=== PATIENT | female | born 1935 | race American Indian/Alaskan Native ===

== ENCOUNTER 2021-10-15 15:05 | Inpatient (IN) | payer MEDICAID ==
[~2021-10-15 15:05] MED LIST: ETOMIDATE 20 MG/10 ML INJ IV ONE; SUCCINYLCHOLINE CHLORIDE 200 MG/10 ML INJ MDV ONE
[2021-10-15] MEDS ORDERED: SODIUM CHLORIDE 0.9% 1000 ML 1,000 ML ONE (15:15)
[2021-10-15] MEDS ORDERED: SODIUM CHLORIDE 0.9% 1000 ML 1,000 ML IV ONE (15:21)
[2021-10-15] MEDS ORDERED: cefTRIAXone/NS 1 GM/50 ML 1 GM/50 ML BAG IV ONE (15:27)
[2021-10-15] MEDS ORDERED: dexAMETHasone 4 MG/ML VIAL IV ONE (15:28)
--- NOTE | 2021-10-15 15:32 | Emergency Department Report ---
HPI - General Chief Complaint: Dyspnea/Respdistress PUI?: Yes Time Seen by Provider: 10/15/21 15:18 - HPI HPI: 86-year-old female with history of stroke and pacemaker placement brought in by EMS in severe respiratory distress with hypoxia. According to the EMS report, they were called out for dyspnea. When they arrived they found the patient with severely altered mental status and respiratory distress satting in the 70s on r oom air. Her son did not convey any information about the duration or the nature of the patient's symptoms. She was placed on BiPAP in route. She is in severe respiratory distress. Further details of the HPI are highly limited due to the patient's current clinical condition. ED Past Medical Hx - Past Medical History Previous Medical History?: Yes Hx CVA: Yes - Surgical History Hx Pacemaker: Yes ED Review of Systems ROS: Stated complaint: RESPIRATORY DISTRESS Other details as noted in HPI Comment: Unobtainable due to pts medical conditions Physical Exam - Physical Exam Physical Exam: GENERAL: Frail appearing elderly female in severe respiratory distress HEAD: Normocephalic. No obvious signs of trauma. ENT: BiPAP in place. EYES: . Pupils are equal round and reactive to light bilaterally NECK: Supple. Trachea is midline. LUNGS: Severe respiratory distress with accessory muscle use. Equal chest rise bilaterally. There are diffuse rales throughout all lung escalera bilaterally CARDIOVASCULAR: Tachycardic but with regular rhythm. No murmurs or rubs. VASCULAR: Cap refill < 2 seconds ABDOMEN: Abdomen is soft and nondistended. There is no significant tenderness, guarding or rebound. Gastrostomy tube is in place. SKIN: Skin is warm and dry NEURO: Patient is awake but does not respond or follow commands. She does withd raw to pain. Uncooperative with neurologic exam. MUSCULOSKELETAL: No obvious deformities. No significant tenderness. . - Central Line Placement Right IJ Consent Obtained: emergent situation Patient Placed on Monitor/Pulse Ox: Yes MD Prep: mask, gown, gloves Central Line Prep: Chlorhexidine scrub, sterile drapes applied Local Anesthesia Used: Lidocaine 1% Amount of Anesthesia Used (mls): 1 Ultrasound Used for Placement: Yes Central Line Lumen Inserted: triple Reason for Insertion: High Alert Medication Central Line Position: good blood return, all ports aspirated, flus, sutured in place with 2-0 Dressing Applied: Tegaderm, sterile gauze/tape Post Procedure X-Ray: tip of catheter in good p Patient Tolerated Procedure: well, no complications Complications: none - Intubation Sedative: Etomidate Mg Given: 20 Paralytic: Succinylcholine Mg Given: 100 Laryngoscope: fiberoptic video scope Size: 4 ET Tube Size: 7 Tube Secured Depth (cm): 21 Tube Secured Location: lips Tube Placement Confirmation: visualized tube passing t, equal breath sounds bilat, confirmation by capnometr Patient Tolerated Procedure: well Intubation Complications: none ED Medical Decision Making - Lab Data Result diagrams: 10/15/21 16:15 10/15/21 16:15 Lab Results 10/15/21 10/15/21 10/15/21 Range/Units 16:15 16:15 16:15 WBC 17.2 H (4.5-11.0) K/mm3 RBC 3.80 (3.65-5.03) M/mm3 Hgb 9.0 L (10.1-14.3) gm/dl Hct 29.7 L (30.3-42.9) % MCV 78 L (79-97) fl MCH 24 L (28-32) pg MCHC 30 (30-34) % RDW 17.5 H (13.2-15.2) % Plt Count 308 (140-440) K/mm3 Add Manual Diff Complete Total Counted 100 Seg Neutrophils % Cable Reeler Seg Neuts % (Manual) 88.0 H (40.0-70.0) % Band Neutrophils % 7.0 % Lymphocytes % (Manual) 3.0 L (13.4-35.0) % Reactive Lymphs % (Man) 0 % Monocytes % (Manual) 2.0 (0.0-7.3) % Eosinophils % (Manual) 0 (0.0-4.3) % Basophils % (Manual) 0 (0.0-1.8) % Metamyelocytes % 0 % Myelocytes % 0 % Promyelocytes % 0 % Blast Cells % 0 % Nucleated RBC % Not Reportable Seg Neutrophils # Man 15.1 H (1.8-7.7) K/mm3 Band Neutrophils # 1.2 K/mm3 Lymphocytes # (Manual) 0.5 L (1.2-5.4) K/mm3 Abs React Lymphs (Man) 0.0 K/mm3 Monocytes # (Manual) 0.3 (0.0-0.8) K/mm3 Eosinophils # (Manual) 0.0 (0.0-0.4) K/mm3 Basophils # (Manual) 0.0 (0.0-0.1) K/mm3 Metamyelocytes # 0.0 K/mm3 Myelocytes # 0.0 K/mm3 Promyelocytes # 0.0 K/mm3 Blast Cells # 0.0 K/mm3 WBC Morphology Not Reportable Hypersegmented Neuts Not Reportable Hyposegmented Neuts Not Reportable Hypogranular Neuts Not Reportable Smudge Cells Not Reportable Toxic Granulation Not Reportable Toxic Vacuolation Not Reportable Dohle Bodies Not Reportable Pelger-Huet Anomaly Not Reportable Girma Rods Not Reportable Platelet Estimate Consistent w auto Clumped Platelets Not Reportable Plt Clumps, EDTA Not Reportable Large Platelets Not Reportable Giant Platelets Not Reportable Platelet Satelliting Not Reportable Plt Morphology Comment Not Reportable RBC Morphology Not Reportable Dimorphic RBCs Not Reportable Polychromasia Not Reportable Hypochromasia 1+ Poikilocytosis Not Reportable Anisocytosis Not Reportable Microcytosis Not Reportable Macrocytosis Not Reportable Spherocytes Not Reportable Pappenheimer Bodies Not Reportable Sickle Cells Not Reportable Target Cells Not Reportable Tear Drop Cells Not Reportable Ovalocytes Not Reportable Helmet Cells Not Reportable Vaz-Matteson Bodies Not Reportable [place] Rings Not Reportable Lucius Cells Not Reportable Bite Cells Not Reportable Crenated Cell Not Reportable Elliptocytes Not Reportable Acanthocytes (Spur) Not Reportable Rouleaux Not Reportable Hemoglobin C Crystals Not Reportable Schistocytes Not Reportable Malaria parasites Not Reportable Brodie Bodies Not Reportable Hem Pathologist Commnt No PT 14.6 (12.2-14.9) Sec. INR 1.03 (0.87-1.13) APTT 38.0 H (24.2-36.6) Sec. D-Dimer 7433.97 H (0-234) ng/mlDDU ABG pH (7.350-7.450) pH Units ABG pCO2 mm Hg ABG pO2 (80.0-90.0) mm Hg ABG HCO3 (20.0-26.0) mmol/L ABG O2 Saturation (95.0-99.0) % ABG O2 Content (0.0-44) ABG Base Excess (-2.0-3.0) mmol/L ABG Hemoglobin (12.0-16.0) gm/dl ABG Carboxyhemoglobin (0.0-5.0) % ABG Methemoglobin (0.0-1.5) % Oxyhemoglobin (95.0-99.0) % FiO2 % Sodium (137-145) mmol/L Potassium (3.6-5.0) mmol/L Chloride (98-107) mmol/L Carbon Dioxide (22-30) mmol/L Anion Gap mmol/L BUN (7-17) mg/dL Creatinine (0.6-1.2) mg/dL Estimated GFR ml/min BUN/Creatinine Ratio % Glucose (65-100) mg/dL Lactic Acid 5.60 H* (0.7-2.0) mmol/L Calcium (8.4-10.2) mg/dL Magnesium (1.7-2.3) mg/dL Ferritin (10.0-200.0) ng/mL Total Bilirubin (0.1-1.2) mg/dL Direct Bilirubin (0-0.2) mg/dL Indirect Bilirubin mg/dL AST (5-40) units/L ALT (7-56) units/L Alkaline Phosphatase (35-129) units/L Ammonia (25-60) umol/L Lactate Dehydrogenase (91-180) units/L Troponin T (0.00-0.029) ng/mL C-Reactive Protein (0.00-1.30) mg/dL NT-Pro-B Natriuret Pep (0-900) pg/mL Total Protein (6.3-8.2) g/dL Albumin (3.9-5) g/dL Albumin/Globulin Ratio % Triglycerides (2-149) mg/dL Cholesterol (50-199) mg/dL LDL Cholesterol Direct (50-130) mg/dL HDL Cholesterol (40-59) mg/dL Cholesterol/HDL Ratio % Lipase (13-60) units/L Urine Color (Yellow) Urine Turbidity (Clear) Urine pH (5.0-7.0) Ur Specific Tad (1.003-1.030) Urine Protein (Negative) mg/dL Urine Glucose (UA) (Negative) mg/dL Urine Ketones (Negative) mg/dL Urine Blood (Negative) Urine Nitrite (Negative) Urine Bilirubin (Negative) Urine Urobilinogen (<2.0) mg/dL Ur Leukocyte Esterase (Negative) Urine WBC (Auto) (0.0-6.0) /HPF Urine RBC (Auto) (0.0-6.0) /HPF U Epithel Cells (Auto) (0-13.0) /HPF Urine Bacteria (Auto) (Negative) /HPF Calcium Oxalate Crystal Amorphous Crystals Urine Mucus /HPF Urine Yeast (Budding) /HPF Salicylates (2.8-20.0) mg/dL Urine Opiates Screen Urine Methadone Screen Acetaminophen (10.0-30.0) ug/mL Ur Barbiturates Screen Ur Phencyclidine Scrn Ur Amphetamines Screen U Benzodiazepines Scrn Urine Cocaine Screen U Marijuana (THC) Screen Drugs of Abuse Note 10/15/21 10/15/21 10/15/21 Range/Units 16:15 16:15 16:15 WBC (4.5-11.0) K/mm3 RBC (3.65-5.03) M/mm3 Hgb (10.1-14.3) gm/dl Hct (30.3-42.9) % MCV (79-97) fl MCH (28-32) pg MCHC (30-34) % RDW (13.2-15.2) % Plt Count (140-440) K/mm3 Add Manual Diff Total Counted Seg Neutrophils % Seg Neuts % (Manual) (40.0-70.0) % Band Neutrophils % % Lymphocytes % (Manual) (13.4-35.0) % Reactive Lymphs % (Man) % Monocytes % (Manual) (0.0-7.3) % Eosinophils % (Manual) (0.0-4.3) % Basophils % (Manual) (0.0-1.8) % Metamyelocytes % % Myelocytes % % Promyelocytes % % Blast Cells % % Nucleated RBC % Seg Neutrophils # Man (1.8-7.7) K/mm3 Band Neutrophils # K/mm3 Lymphocytes # (Manual) (1.2-5.4) K/mm3 Abs React Lymphs (Man) K/mm3 Monocytes # (Manual) (0.0-0.8) K/mm3 Eosinophils # (Manual) (0.0-0.4) K/mm3 Basophils # (Manual) (0.0-0.1) K/mm3 Metamyelocytes # K/mm3 Myelocytes # K/mm3 Promyelocytes # K/mm3 Blast Cells # K/mm3 WBC Morphology Hypersegmented Neuts Hyposegmented Neuts Hypogranular Neuts Smudge Cells Toxic Granulation Toxic Vacuolation Dohle Bodies Pelger-Huet Anomaly Girma Rods Platelet Estimate Clumped Platelets Plt Clumps, EDTA Large Platelets Giant Platelets Platelet Satelliting Plt Morphology Comment RBC Morphology Dimorphic RBCs Polychromasia Hypochromasia Poikilocytosis Anisocytosis Microcytosis Macrocytosis Spherocytes Pappenheimer Bodies Sickle Cells Target Cells Tear Drop Cells Ovalocytes Helmet Cells Vaz-Matteson Bodies [place] Rings [place] Cells Bite Cells Crenated Cell Elliptocytes Acanthocytes (Spur) Rouleaux Hemoglobin C Crystals Schistocytes Malaria parasites Brodie Bodies Hem Pathologist Commnt PT (12.2-14.9) Sec. INR (0.87-1.13) APTT (24.2-36.6) Sec. D-Dimer (0-234) ng/mlDDU ABG pH (7.350-7.450) pH Units ABG pCO2 mm Hg ABG pO2 (80.0-90.0) mm Hg ABG HCO3 (20.0-26.0) mmol/L ABG O2 Saturation (95.0-99.0) % ABG O2 Content (0.0-44) ABG Base Excess (-2.0-3.0) mmol/L ABG Hemoglobin (12.0-16.0) gm/dl ABG Carboxyhemoglobin (0.0-5.0) % ABG Methemoglobin (0.0-1.5) % Oxyhemoglobin (95.0-99.0) % FiO2 % Sodium 134 L (137-145) mmol/L Potassium 4.6 (3.6-5.0) mmol/L Chloride 89.6 L (98-107) mmol/L Carbon Dioxide 26 (22-30) mmol/L Anion Gap 23 mmol/L BUN 27 H (7-17) mg/dL Creatinine 0.6 (0.6-1.2) mg/dL Estimated GFR > 60 ml/min BUN/Creatinine Ratio 45 % Glucose 234 H (65-100) mg/dL Lactic Acid (0.7-2.0) mmol/L Calcium 8.7 (8.4-10.2) mg/dL Magnesium 1.40 L (1.7-2.3) mg/dL Ferritin (10.0-200.0) ng/mL Total Bilirubin 0.50 (0.1-1.2) mg/dL Direct Bilirubin 0.3 H (0-0.2) mg/dL Indirect Bilirubin 0.2 mg/dL AST 31 (5-40) units/L ALT 18 (7-56) units/L Alkaline Phosphatase 66 (35-129) units/L Ammonia 38.0 (25-60) umol/L Lactate Dehydrogenase (91-180) units/L Troponin T (0.00-0.029) ng/mL C-Reactive Protein (0.00-1.30) mg/dL NT-Pro-B Natriuret Pep 6606 H (0-900) pg/mL Total Protein 6.2 L (6.3-8.2) g/dL Albumin 3.1 L (3.9-5) g/dL Albumin/Globulin Ratio 1.0 % Triglycerides (2-149) mg/dL Cholesterol (50-199) mg/dL LDL Cholesterol Direct (50-130) mg/dL HDL Cholesterol (40-59) mg/dL Cholesterol/HDL Ratio % Lipase 19 (13-60) units/L Urine Color (Yellow) Urine Turbidity (Clear) Urine pH (5.0-7.0) Ur Specific Tad (1.003-1.030) Urine Protein (Negative) mg/dL Urine Glucose (UA) (Negative) mg/dL Urine Ketones (Negative) mg/dL Urine Blood (Negative) Urine Nitrite (Negative) Urine Bilirubin (Negative) Urine Urobilinogen (<2.0) mg/dL Ur Leukocyte Esterase (Negative) Urine WBC (Auto) (0.0-6.0) /HPF Urine RBC (Auto) (0.0-6.0) /HPF U Epithel Cells (Auto) (0-13.0) /HPF Urine Bacteria (Auto) (Negative) /HPF Calcium Oxalate Crystal Amorphous Crystals Urine Mucus /HPF Urine Yeast (Budding) /HPF Salicylates < 0.3 L (2.8-20.0) mg/dL Urine Opiates Screen Urine Methadone Screen Acetaminophen (10.0-30.0) ug/mL Ur Barbiturates Screen Ur Phencyclidine Scrn Ur Amphetamines Screen U Benzodiazepines Scrn Urine Cocaine Screen U Marijuana (THC) Screen Drugs of Abuse Note 10/15/21 10/15/21 10/15/21 Range/Units 16:15 16:15 16:15 WBC (4.5-11.0) K/mm3 RBC (3.65-5.03) M/mm3 Hgb (10.1-14.3) gm/dl Hct (30.3-42.9) % MCV (79-97) fl MCH (28-32) pg MCHC (30-34) % RDW (13.2-15.2) % Plt Count (140-440) K/mm3 Add Manual Diff Total Counted Seg Neutrophils % Seg Neuts % (Manual) (40.0-70.0) % Band Neutrophils % % Lymphocytes % (Manual) (13.4-35.0) % Reactive Lymphs % (Man) % Monocytes % (Manual) (0.0-7.3) % Eosinophils % (Manual) (0.0-4.3) % Basophils % (Manual) (0.0-1.8) % Metamyelocytes % % Myelocytes % % Promyelocytes % % Blast Cells % % Nucleated RBC % Seg Neutrophils # Man (1.8-7.7) K/mm3 Band Neutrophils # K/mm3 Lymphocytes # (Manual) (1.2-5.4) K/mm3 Abs React Lymphs (Man) K/mm3 Monocytes # (Manual) (0.0-0.8) K/mm3 Eosinophils # (Manual) (0.0-0.4) K/mm3 Basophils # (Manual) (0.0-0.1) K/mm3 Metamyelocytes # K/mm3 Myelocytes # K/mm3 Promyelocytes # K/mm3 Blast Cells # K/mm3 WBC Morphology Hypersegmented Neuts Hyposegmented Neuts Hypogranular Neuts Smudge Cells Toxic Granulation Toxic Vacuolation Dohle Bodies Pelger-Huet Anomaly Girma Rods Platelet Estimate Clumped Platelets Plt Clumps, EDTA Large Platelets Giant Platelets Platelet Satelliting Plt Morphology Comment RBC Morphology Dimorphic RBCs Polychromasia Hypochromasia Poikilocytosis Anisocytosis Microcytosis Macrocytosis Spherocytes Pappenheimer Bodies Sickle Cells Target Cells Tear Drop Cells Ovalocytes Helmet Cells Vaz-Matteson Bodies [place] Rings Lucius Cells Bite Cells Crenated Cell Elliptocytes Acanthocytes (Spur) Rouleaux Hemoglobin C Crystals Schistocytes Malaria parasites Brodie Bodies Hem Pathologist Commnt PT (12.2-14.9) Sec. INR (0.87-1.13) APTT (24.2-36.6) Sec. D-Dimer (0-234) ng/mlDDU ABG pH (7.350-7.450) pH Units ABG pCO2 mm Hg ABG pO2 (80.0-90.0) mm Hg ABG HCO3 (20.0-26.0) mmol/L ABG O2 Saturation (95.0-99.0) % ABG O2 Content (0.0-44) ABG Base Excess (-2.0-3.0) mmol/L ABG Hemoglobin (12.0-16.0) gm/dl ABG Carboxyhemoglobin (0.0-5.0) % ABG Methemoglobin (0.0-1.5) % Oxyhemoglobin (95.0-99.0) % FiO2 % Sodium (137-145) mmol/L Potassium (3.6-5.0) mmol/L Chloride (98-107) mmol/L Carbon Dioxide (22-30) mmol/L Anion Gap mmol/L BUN (7-17) mg/dL Creatinine (0.6-1.2) mg/dL Estimated GFR ml/min BUN/Creatinine Ratio % Glucose 221 H (65-100) mg/dL Lactic Acid (0.7-2.0) mmol/L Calcium (8.4-10.2) mg/dL Magnesium (1.7-2.3) mg/dL Ferritin 418.8 H (10.0-200.0) ng/mL Total Bilirubin (0.1-1.2) mg/dL Direct Bilirubin (0-0.2) mg/dL Indirect Bilirubin mg/dL AST (5-40) units/L ALT (7-56) units/L Alkaline Phosphatase (35-129) units/L Ammonia (25-60) umol/L Lactate Dehydrogenase 233 H (91-180) units/L Troponin T (0.00-0.029) ng/mL C-Reactive Protein 25.90 H (0.00-1.30) mg/dL NT-Pro-B Natriuret Pep (0-900) pg/mL Total Protein (6.3-8.2) g/dL Albumin (3.9-5) g/dL Albumin/Globulin Ratio % Triglycerides (2-149) mg/dL Cholesterol (50-199) mg/dL LDL Cholesterol Direct (50-130) mg/dL HDL Cholesterol (40-59) mg/dL Cholesterol/HDL Ratio % Lipase (13-60) units/L Urine Color (Yellow) Urine Turbidity (Clear) Urine pH (5.0-7.0) Ur Specific Tad (1.003-1.030) Urine Protein (Negative) mg/dL Urine Glucose (UA) (Negative) mg/dL Urine Ketones (Negative) mg/dL Urine Blood (Negative) Urine Nitrite (Negative) Urine Bilirubin (Negative) Urine Urobilinogen (<2.0) mg/dL Ur Leukocyte Esterase (Negative) Urine WBC (Auto) (0.0-6.0) /HPF Urine RBC (Auto) (0.0-6.0) /HPF U Epithel Cells (Auto) (0-13.0) /HPF Urine Bacteria (Auto) (Negative) /HPF Calcium Oxalate Crystal Amorphous Crystals Urine Mucus /HPF Urine Yeast (Budding) /HPF Salicylates (2.8-20.0) mg/dL Urine Opiates Screen Urine Methadone Screen Acetaminophen 5.0 L (10.0-30.0) ug/mL Ur Barbiturates Screen Ur Phencyclidine Scrn Ur Amphetamines Screen U Benzodiazepines Scrn Urine Cocaine Screen U Marijuana (THC) Screen Drugs of Abuse Note 10/15/21 10/15/21 10/15/21 Range/Units 16:15 16:42 18:00 WBC (4.5-11.0) K/mm3 RBC (3.65-5.03) M/mm3 Hgb (10.1-14.3) gm/dl Hct (30.3-42.9) % MCV (79-97) fl MCH (28-32) pg MCHC (30-34) % RDW (13.2-15.2) % Plt Count (140-440) K/mm3 Add Manual Diff Total Counted Seg Neutrophils % Seg Neuts % (Manual) (40.0-70.0) % Band Neutrophils % % Lymphocytes % (Manual) (13.4-35.0) % Reactive Lymphs % (Man) % Monocytes % (Manual) (0.0-7.3) % Eosinophils % (Manual) (0.0-4.3) % Basophils % (Manual) (0.0-1.8) % Metamyelocytes % % Myelocytes % % Promyelocytes % % Blast Cells % % Nucleated RBC % Seg Neutrophils # Man (1.8-7.7) K/mm3 Band Neutrophils # K/mm3 Lymphocytes # (Manual) (1.2-5.4) K/mm3 Abs React Lymphs (Man) K/mm3 Monocytes # (Manual) (0.0-0.8) K/mm3 Eosinophils # (Manual) (0.0-0.4) K/mm3 Basophils # (Manual) (0.0-0.1) K/mm3 Metamyelocytes # K/mm3 Myelocytes # K/mm3 Promyelocytes # K/mm3 Blast Cells # K/mm3 WBC Morphology Hypersegmented Neuts Hyposegmented Neuts Hypogranular Neuts Smudge Cells Toxic Granulation Toxic Vacuolation Dohle Bodies Pelger-Huet Anomaly Girma Rods Platelet Estimate Clumped Platelets Plt Clumps, EDTA Large Platelets Giant Platelets Platelet Satelliting Plt Morphology Comment RBC Morphology Dimorphic RBCs Polychromasia Hypochromasia Poikilocytosis Anisocytosis Microcytosis Macrocytosis Spherocytes Pappenheimer Bodies Sickle Cells Target Cells Tear Drop Cells Ovalocytes Helmet Cells Vaz-Matteson Bodies [place] Rings Lucius Cells Bite Cells Crenated Cell Elliptocytes Acanthocytes (Spur) Rouleaux Hemoglobin C Crystals Schistocytes Malaria parasites Brodie Bodies Hem Pathologist Commnt PT (12.2-14.9) Sec. INR (0.87-1.13) APTT (24.2-36.6) Sec. D-Dimer (0-234) ng/mlDDU ABG pH 7.348 L (7.350-7.450) pH Units ABG pCO2 57.0 mm Hg ABG pO2 75.4 L (80.0-90.0) mm Hg ABG HCO3 30.6 H (20.0-26.0) mmol/L ABG O2 Saturation 94.3 L (95.0-99.0) % ABG O2 Content 14.3 (0.0-44) ABG Base Excess 3.9 H (-2.0-3.0) mmol/L ABG Hemoglobin 10.9 L (12.0-16.0) gm/dl ABG Carboxyhemoglobin 0.8 (0.0-5.0) % ABG Methemoglobin 0.6 (0.0-1.5) % Oxyhemoglobin 93.1 L (95.0-99.0) % FiO2 100 % Sodium (137-145) mmol/L Potassium (3.6-5.0) mmol/L Chloride (98-107) mmol/L Carbon Dioxide (22-30) mmol/L Anion Gap mmol/L BUN (7-17) mg/dL Creatinine (0.6-1.2) mg/dL Estimated GFR ml/min BUN/Creatinine Ratio % Glucose (65-100) mg/dL Lactic Acid 3.10 H* (0.7-2.0) mmol/L Calcium (8.4-10.2) mg/dL Magnesium (1.7-2.3) mg/dL Ferritin 421.6 H (10.0-200.0) ng/mL Total Bilirubin (0.1-1.2) mg/dL Direct Bilirubin (0-0.2) mg/dL Indirect Bilirubin mg/dL AST (5-40) units/L ALT (7-56) units/L Alkaline Phosphatase (35-129) units/L Ammonia (25-60) umol/L Lactate Dehydrogenase (91-180) units/L Troponin T (0.00-0.029) ng/mL C-Reactive Protein (0.00-1.30) mg/dL NT-Pro-B Natriuret Pep (0-900) pg/mL Total Protein (6.3-8.2) g/dL Albumin (3.9-5) g/dL Albumin/Globulin Ratio % Triglycerides (2-149) mg/dL Cholesterol (50-199) mg/dL LDL Cholesterol Direct (50-130) mg/dL HDL Cholesterol (40-59) mg/dL Cholesterol/HDL Ratio % Lipase (13-60) units/L Urine Color (Yellow) Urine Turbidity (Clear) Urine pH (5.0-7.0) Ur Specific Tad (1.003-1.030) Urine Protein (Negative) mg/dL Urine Glucose (UA) (Negative) mg/dL Urine Ketones (Negative) mg/dL Urine Blood (Negative) Urine Nitrite (Negative) Urine Bilirubin (Negative) Urine Urobilinogen (<2.0) mg/dL Ur Leukocyte Esterase (Negative) Urine WBC (Auto) (0.0-6.0) /HPF Urine RBC (Auto) (0.0-6.0) /HPF U Epithel Cells (Auto) (0-13.0) /HPF Urine Bacteria (Auto) (Negative) /HPF Calcium Oxalate Crystal Amorphous Crystals Urine Mucus /HPF Urine Yeast (Budding) /HPF Salicylates (2.8-20.0) mg/dL Urine Opiates Screen Urine Methadone Screen Acetaminophen (10.0-30.0) ug/mL Ur Barbiturates Screen Ur Phencyclidine Scrn Ur Amphetamines Screen U Benzodiazepines Scrn Urine Cocaine Screen U Marijuana (THC) Screen Drugs of Abuse Note 10/15/21 10/15/21 10/15/21 Range/Units 18:00 Unknown Unknown WBC (4.5-11.0) K/mm3 RBC (3.65-5.03) M/mm3 Hgb (10.1-14.3) gm/dl Hct (30.3-42.9) % MCV (79-97) fl MCH (28-32) pg MCHC (30-34) % RDW (13.2-15.2) % Plt Count (140-440) K/mm3 Add Manual Diff Total Counted Seg Neutrophils % Seg Neuts % (Manual) (40.0-70.0) % Band Neutrophils % % Lymphocytes % (Manual) (13.4-35.0) % Reactive Lymphs % (Man) % Monocytes % (Manual) (0.0-7.3) % Eosinophils % (Manual) (0.0-4.3) % Basophils % (Manual) (0.0-1.8) % Metamyelocytes % % Myelocytes % % Promyelocytes % % Blast Cells % % Nucleated RBC % Seg Neutrophils # Man (1.8-7.7) K/mm3 Band Neutrophils # K/mm3 Lymphocytes # (Manual) (1.2-5.4) K/mm3 Abs React Lymphs (Man) K/mm3 Monocytes # (Manual) (0.0-0.8) K/mm3 Eosinophils # (Manual) (0.0-0.4) K/mm3 Basophils # (Manual) (0.0-0.1) K/mm3 Metamyelocytes # K/mm3 Myelocytes # K/mm3 Promyelocytes # K/mm3 Blast Cells # K/mm3 WBC Morphology Hypersegmented Neuts Hyposegmented Neuts Hypogranular Neuts Smudge Cells Toxic Granulation Toxic Vacuolation Dohle Bodies Pelger-Huet Anomaly Girma Rods Platelet Estimate Clumped Platelets Plt Clumps, EDTA Large Platelets Giant Platelets Platelet Satelliting Plt Morphology Comment RBC Morphology Dimorphic RBCs Polychromasia Hypochromasia Poikilocytosis Anisocytosis Microcytosis Macrocytosis Spherocytes Pappenheimer Bodies Sickle Cells Target Cells Tear Drop Cells Ovalocytes Helmet Cells Vaz-Matteson Bodies [place] Rings [place] Cells Bite Cells Crenated Cell Elliptocytes Acanthocytes (Spur) Rouleaux Hemoglobin C Crystals Schistocytes Malaria parasites Brodie Bodies Hem Pathologist Commnt PT (12.2-14.9) Sec. INR (0.87-1.13) APTT (24.2-36.6) Sec. D-Dimer (0-234) ng/mlDDU ABG pH (7.350-7.450) pH Units ABG pCO2 mm Hg ABG pO2 (80.0-90.0) mm Hg ABG HCO3 (20.0-26.0) mmol/L ABG O2 Saturation (95.0-99.0) % ABG O2 Content (0.0-44) ABG Base Excess (-2.0-3.0) mmol/L ABG Hemoglobin (12.0-16.0) gm/dl ABG Carboxyhemoglobin (0.0-5.0) % ABG Methemoglobin (0.0-1.5) % Oxyhemoglobin (95.0-99.0) % FiO2 % Sodium (137-145) mmol/L Potassium (3.6-5.0) mmol/L Chloride (98-107) mmol/L Carbon Dioxide (22-30) mmol/L Anion Gap mmol/L BUN (7-17) mg/dL Creatinine (0.6-1.2) mg/dL Estimated GFR ml/min BUN/Creatinine Ratio % Glucose (65-100) mg/dL Lactic Acid (0.7-2.0) mmol/L Calcium (8.4-10.2) mg/dL Magnesium (1.7-2.3) mg/dL Ferritin (10.0-200.0) ng/mL Total Bilirubin (0.1-1.2) mg/dL Direct Bilirubin (0-0.2) mg/dL Indirect Bilirubin mg/dL AST (5-40) units/L ALT (7-56) units/L Alkaline Phosphatase (35-129) units/L Ammonia (25-60) umol/L Lactate Dehydrogenase (91-180) units/L Troponin T 0.036 H (0.00-0.029) ng/mL C-Reactive Protein (0.00-1.30) mg/dL NT-Pro-B Natriuret Pep (0-900) pg/mL Total Protein (6.3-8.2) g/dL Albumin (3.9-5) g/dL Albumin/Globulin Ratio % Triglycerides 122 (2-149) mg/dL Cholesterol 99 (50-199) mg/dL LDL Cholesterol Direct 46 L (50-130) mg/dL HDL Cholesterol 25 L (40-59) mg/dL Cholesterol/HDL Ratio 3.96 % Lipase (13-60) units/L Urine Color Yellow (Yellow) Urine Turbidity Cloudy (Clear) Urine pH 5.0 (5.0-7.0) Ur Specific Tad 1.016 (1.003-1.030) Urine Protein >500 (Negative) mg/dL Urine Glucose (UA) 50 (Negative) mg/dL Urine Ketones Neg (Negative) mg/dL Urine Blood Neg (Negative) Urine Nitrite Neg (Negative) Urine Bilirubin Neg (Negative) Urine Urobilinogen < 2.0 (<2.0) mg/dL Ur Leukocyte Esterase Neg (Negative) Urine WBC (Auto) 5.0 (0.0-6.0) /HPF Urine RBC (Auto) 2.0 (0.0-6.0) /HPF U Epithel Cells (Auto) 2.0 (0-13.0) /HPF Urine Bacteria (Auto) 1+ (Negative) /HPF Calcium Oxalate Crystal 1+ Amorphous Crystals 3+ Urine Mucus Few /HPF Urine Yeast (Budding) 1+ /HPF Salicylates (2.8-20.0) mg/dL Urine Opiates Screen Negative Urine Methadone Screen Negative Acetaminophen (10.0-30.0) ug/mL Ur Barbiturates Screen Negative Ur Phencyclidine Scrn Negative Ur Amphetamines Screen Negative U Benzodiazepines Scrn Negative Urine Cocaine Screen Negative U Marijuana (THC) Screen Negative Drugs of Abuse Note Disclamer - Radiology Data Radiology results: report reviewed - Medical Decision Making 86-year-old female with history of stroke and pacemaker placement brought in by EMS in severe respiratory distress with hypoxia. The patient's initial oxygen saturation was in the 70s on room air. She was placed on BiPAP in route. Upon arrival to the emergency department she remains in severe respiratory distress with accessory muscle use. Her oxygen saturation on BiPAP is 78%. Lung auscultation reveals diffuse rales. I immediately prepared for RSI. The patient arrived without IV access and despite multiple attempts to place an IV, those attempts were unsuccessful. At my direction, and IO was placed to the right humerus by EMS personnel once the patient arrived. The patient was succe ssfully intubated using a 7-0 endotracheal tube with subsequent bilateral breath sounds and confirmation with color change on colorimeter. We will perform broad work-up with a full set of labs and cultures as well as chest x-ray. I have ordered broad-spectrum IV antibiotics and Decadron given possible COVID-19 pneumonia. The patient's son Fan ([phone]) arrived and provided further history. He states that the patient had a stroke in 2019 and is G-tube dependent and nonverbal. She was also diagnosed with DVT of the right leg and is on Xarelto for anticoagulation. He says that last night she began to have increased work of breathing and then today was noted to be in respiratory distress so 911 was called. We discussed the patient's dire situation and extremely high mortality risk given her age, comorbidities, and instability and he indicates that the patient would want everything done for her. He provides further history saying that the patient was previously intubated and eventually trached and at that time doctors told him that the patient would not survive but she did. I discussed that the patient needs a central line placed for vasopressors and he indicates that he would like us to proceed. The patient's blood pressure dropped shortly after intubation and Levophed drip was initiated. Labs reveal leukocytosis of 17.2 and anemia of 9.0. Creatinine is 0.6 but BUN is 27 indicating dehydration. Lactate is extremely elevated at 5.6. The patient will be given 30 mL/kg of IV fluid for severe sepsis with septic shock. Right IJ central line was placed and confirmed on chest x-ray. I spoke with Dr. Lomas of critical care medicine regarding the case and he accepts the patient for admission to the critical care unit. I spoke with Dr. Wong, the on-call hospitalist regarding the case and he accepts patient for admission and will assume care. Critical Care Time: Yes Critical care time in (mins) excluding proc time.: 50 Critical care attestation.: If time is entered above; I have spent that time in minutes in the direct care of this critically ill patient, excluding procedure time. Critical care time was spent in the evaluation/assessment, work-up, and management of hypoxic respiratory failure requiring intubation and mechanical ventilation, septic shock requiring sepsis alert with fluids and broad-spectrum antibiotics, discussion with family and critical care consultants, and very frequent reassessment and reevaluation as well as direct bedside monitoring. ED Disposition Clinical Impression: Sepsis with acute hypoxic respiratory failure and septic shock, Pneumonia, History of stroke, Gastrostomy tube dependent, Suspected COVID-19 virus infection, Hypomagnesemia, Elevated troponin, Current long-term use of anticoagu lant medication with history of deep venous thrombosis (DVT) Disposition: 09 ADMITTED INPATIENT Is pt being admited?: Yes Condition: Critical Instructions: Bacterial Pneumonia (ED) Referrals: PRIMARY CARE, [Primary Care Provider] - 3-5 Days
--- NOTE | 2021-10-15 15:59 | XRay Report ---
CHEST 1 VIEW 10/15/2021 3:29 PM INDICATION / CLINICAL INFORMATION: Intubation. COMPARISON: None available. FINDINGS: SUPPORT DEVICES: There is a dual chamber left subclavian transvenous pacemaker with the tips of the p acing leads overlying the right atrium and right ventricle. HEART / MEDIASTINUM: The heart size is normal with a left ventricular configuration. There is calcifi cation in the aortic arch without aneurysm. LUNGS / PLEURA: There are moderate patchy parenchymal opacities bilaterally, most prominent in the le ft midlung and right lower lung. There may be a small left pleural effusion. No pneumothorax. ADDITIONAL FINDINGS: No significant additional findings. IMPRESSION: Bilateral parenchymal opacities are probably inflammatory. Bacterial pneumonia, atypical causes of pneumonia and aspiration should be considered. Signer Name: Abraham Benson MD Signed: 10/15/2021 3:55 PM Workstation Name: [id number]
[2021-10-15] MEDS ORDERED: metroNIDAZOLE/NS 500 MG/100 ML 500 MG/100 ML BAG IV ONE ×2 (16:20→23:15)
[2021-10-15 16:55] LABS: INR 1.03 (0.87-1.13)
[2021-10-15 17:01] LABS: C-Reactive Protein 25.9 mg/dL (0.00-1.30)
[2021-10-15 17:02] LABS: Alanine Aminotransferase 18 units/L (7-56); Albumin 3.1 g/dL (3.9-5); Bilirubin,Direct 0.3 mg/dL (0-0.2); Blood Urea Nitrogen 27 mg/dL (7-17); Calcium 8.7 mg/dL (8.4-10.2); Hemolysis Index 2
[2021-10-15 17:07] LABS: BUN/Creatinine Ratio 45
[2021-10-15 17:19] LABS: Hematocrit 29.7 % (30.3-42.9); Mean Corpuscular HGB Conc 30 % (30-34); Mean Corpuscular Volume 78 fl (79-97); Platelet Count 308 K/mm3 (140-440); Red Cell Distribution Width 17.5 % (13.2-15.2)
[2021-10-15 17:23] LABS: ABG Base Excess 3.9 mmol/L (-2.0-3.0); ABG HCO3 30.6 mmol/L (20.0-26.0); ABG Methemoglobin 0.6 % (0.0-1.5); ABG Oxygen Saturation 94.3 % (95.0-99.0); ABG PH 7.348 pH Units (7.350-7.450); ABG PO2 75.4 mm Hg (80.0-90.0)
[2021-10-15] MEDS ORDERED: SODIUM CHLORIDE 0.9% IV ONE ×2 (17:45→17:58)
[2021-10-15] MEDS ORDERED: VANCOMYCIN IV ONE (17:58)
[2021-10-15] MEDS ORDERED: AZITHROMYCIN/NS 500 MG/250 ML 500 MG/250 ML BAG IV ONE (18:00)
[2021-10-15] MEDS ORDERED: CEFEPIME/NS 2 GM/100 ML 2 GM/100 ML BAG IV ONE (18:00)
--- NOTE | 2021-10-15 18:27 | XRay Report ---
CHEST 1 VIEW 10/15/2021 6:00 PM INDICATION / CLINICAL INFORMATION: Central line and ET tube placement. COMPARISON: Earlier today at 3:29 PM. FINDINGS: SUPPORT DEVICES: There is an endotracheal tube with the tip approximately 4 cm above the michael. Ther e is a right jugular CVL with the tip overlying the upper cavoatrial junction. The position of the du al chamber left subclavian transvenous pacemaker has not changed. HEART / MEDIASTINUM: Unchanged. LUNGS / PLEURA: Moderate parenchymal opacities in both mid to lower lung zones have not changed signi ficantly. A small left pleural effusion is stable. No pneumothorax. ADDITIONAL FINDINGS: No significant additional findings. IMPRESSION: Right jugular CVL placement without complication. Endotracheal tube in satisfactory posit ion. Signer Name: Abraham Benson MD Signed: 10/15/2021 6:22 PM Workstation Name: [id number]
[2021-10-15] MEDS ORDERED: MAGNESIUM SULFATE 2 GM/50 ML BAG IV ONE (18:28)
[2021-10-15 18:39] LABS: Band Neutrophils # (Manual) 1.2 K/mm3; Basophils % (Manual) 0 % (0.0-1.8); Eosinophils % (Manual) 0 % (0.0-4.3); Hypochromasia 1+; Platelet Estimate Consistent w Auto; Total Cells Counted 100
[2021-10-15] MEDS: NORepinephrine/NS 8 MG-250 ML 8 MG/250 ML INFUS..BTL IV SCH (19:23)
[2021-10-15 19:25] LABS: Chol/HDL Ratio 3.96 %
[2021-10-15 20:09] LABS: Amorphous Crystals,Urine 3+; Bacteria,Urine 1+ /HPF (Negative); Bilirubin,Urine NEG (Negative); Blood,Urine NEG (Negative); Calcium Oxalate Crystals,Urine 1+; Color,Urine Yellow (Yellow); Mucus,Urine FEW /HPF; Urobilinogen,Urine < 2.0 mg/dL (<2.0)
[2021-10-15 20:11] LABS: Protein,Urine >500 mg/dL (Negative)
[2021-10-15 20:13] LABS: Amphetamine Screen,Urine Negative; Benzodiazepines Screen,Urine Negative; Cannabinoid Screen,Urine Negative; Cocaine Screen,Urine Negative; Methadone Screen,Urine Negative; Opiate Screen,Urine Negative
--- NOTE | 2021-10-16 00:56 | History and Physical Report ---
History of Present Illness Date of examination: 10/15/21 Date of admission: 10/15/21 20:15 Chief complaint: Severe respiratory distress since a.m. History of present illness: 86-year-old female with history of hypertension, cerebrovascular accident, diabetes brought in by EMS for severe respiratory distress with hypoxia. According to EMS patient family called for severe shortness of breath. Patient was found to be in respiratory distress and altered mental status with oxygen saturation of 70% on room air. Son is a poor historian. Patient was placed on BiPAP. In the emergency room patient was intubated for protection of airway and increasing oxygen demands. No fever or chills. Patient on vent management. Critical care consultation requested. - Past Medical History Previous Medical History?: Yes --CVA: Yes --HTN --T2DM - Surgical History --Pacemaker: Yes -Family history --Htn -Social history --no smoking /alcohol. Review of Systems ROS: Stated complaint: RESPIRATORY DISTRESS Other details as noted in HPI Comment: Unobtainable due to pts medical conditions Medications and Allergies Allergies Allergy/AdvReac Type Severity Reaction Status Date / Time No Known Allergies Allergy Unverified 10/15/21 17:14 Home Medications Medication Instructions Recorded Confirmed Last Taken Type Metformin HCl 1,000 mg PO BID 10/15/21 10/15/21 Unknown History Triamterene-Hctz 37.5-25 mg Cp 1 tab PO DAILY 10/15/21 10/15/21 Unknown History XARELTO (see DOAC order set to 2.5 mg PO BID 10/15/21 10/15/21 Unknown History order) levETIRAcetam [Keppra TAB] 1 tab PO BID 10/15/21 10/15/21 Unknown History Active Meds: Active Medications Propofol (Diprivan 10 Mg/Ml) 1,000 mg in 100 mls @ 1.633 mls/hr IV TITR MUNA; Protocol Last Titration: 10/15/21 19:21 Dose: 8 mcg/kg/min, 2.613 mls/hr NORepinephrine/NS 8 MG-250 ML (Norepinephrine/Ns 8 Mg-250 Ml (Double Conc)) 8 mg in 250 mls @ 3.75 mls/hr IV TITRATE MUNA; Protocol Last Admin: 10/15/21 19:23 Dose: 1.6 mcg/min, 3 mls/hr Exam - Physical Exam Narrative exam: Patient is intubated - Constitutional Vitals: Temp Pulse Resp BP Pulse Ox 100.0 F H 80 15 156/72 97 10/15/21 23:20 10/15/21 23:02 10/15/21 23:02 10/15/21 23:02 10/15/21 23:02 General appearance: Present: severe distress, well-nourished - EENT Eyes: Present: PERRL ENT: hearing intact, clear oral mucosa - Neck Neck: Present: supple, normal ROM - Respiratory Respiratory effort: normal Respiratory: bilateral: CTA - Cardiovascular Heart rate: 98 Rhythm: regular Heart Sounds: Present: S1 & S2. Absent: rub, click - Extremities Extremities: no ischemia, pulses intact, pulses symmetrical, No edema Peripheral Pulses: within normal limits - Abdominal General gastrointestinal: Present: soft, non-tender, non-distended, normal bowel sounds Female genitourinary: Present: normal - Integumentary Integumentary: Present: clear, warm, dry - Musculoskeletal Musculoskeletal: gait normal, strength equal bilaterally - Psychiatric Psychiatric: appropriate mood/affect, intact judgment & insight - Neurologic Neurologic: CNII-XII intact, moves all extremities HEART Score - HEART Score History: Moderately suspicious Age: > 65 Risk factors: 1-2 risk factors Troponin: Troponin T 0.038 ng/mL (0.00-0.029) H 10/15/21 20:58 Troponin: 1-3x normal limit - Critical Actions Critical Actions: 4-6 pts:12-16.6% risk of adverse cardiac event. Should be admitted Results - Labs CBC & Chem 7: 10/15/21 16:15 10/16/21 01:55 Labs: Laboratory Last Values WBC 17.2 K/mm3 (4.5-11.0) H 10/15/21 16:15 RBC 3.80 M/mm3 (3.65-5.03) 10/15/21 16:15 Hgb 9.0 gm/dl (10.1-14.3) L 10/15/21 16:15 Hct 29.7 % (30.3-42.9) L 10/15/21 16:15 MCV 78 fl (79-97) L 10/15/21 16:15 MCH 24 pg (28-32) L 10/15/21 16:15 MCHC 30 % (30-34) 10/15/21 16:15 RDW 17.5 % (13.2-15.2) H 10/15/21 16:15 Plt Count 308 K/mm3 (140-440) 10/15/21 16:15 Add Manual Diff Complete 10/15/21 16:15 Total Counted 100 10/15/21 16:15 Seg Neutrophils % [employer] Manager 10/15/21 16:15 Seg Neuts % (Manual) 88.0 % (40.0-70.0) H 10/15/21 16:15 Band Neutrophils % 7.0 % 10/15/21 16:15 Lymphocytes % (Manual) 3.0 % (13.4-35.0) L 10/15/21 16:15 Reactive Lymphs % (Man) 0 % 10/15/21 16:15 Monocytes % (Manual) 2.0 % (0.0-7.3) 10/15/21 16:15 Eosinophils % (Manual) 0 % (0.0-4.3) 10/15/21 16:15 Basophils % (Manual) 0 % (0.0-1.8) 10/15/21 16:15 Metamyelocytes % 0 % 10/15/21 16:15 Myelocytes % 0 % 10/15/21 16:15 Promyelocytes % 0 % 10/15/21 16:15 Blast Cells % 0 % 10/15/21 16:15 Nucleated RBC % Not Reportable 10/15/21 16:15 Seg Neutrophils # Man 15.1 K/mm3 (1.8-7.7) H 10/15/21 16:15 Band Neutrophils # 1.2 K/mm3 10/15/21 16:15 Lymphocytes # (Manual) 0.5 K/mm3 (1.2-5.4) L 10/15/21 16:15 Abs React Lymphs (Man) 0.0 K/mm3 10/15/21 16:15 Monocytes # (Manual) 0.3 K/mm3 (0.0-0.8) 10/15/21 16:15 Eosinophils # (Manual) 0.0 K/mm3 (0.0-0.4) 10/15/21 16:15 Basophils # (Manual) 0.0 K/mm3 (0.0-0.1) 10/15/21 16:15 Metamyelocytes # 0.0 K/mm3 10/15/21 16:15 Myelocytes # 0.0 K/mm3 10/15/21 16:15 Promyelocytes # 0.0 K/mm3 10/15/21 16:15 Blast Cells # 0.0 K/mm3 10/15/21 16:15 WBC Morphology Not Reportable 10/15/21 16:15 Hypersegmented Neuts Not Reportable 10/15/21 16:15 Hyposegmented Neuts Not Reportable 10/15/21 16:15 Hypogranular Neuts Not Reportable 10/15/21 16:15 Smudge Cells Not Reportable 10/15/21 16:15 Toxic Granulation Not Reportable 10/15/21 16:15 Toxic Vacuolation Not Reportable 10/15/21 16:15 Dohle Bodies Not Reportable 10/15/21 16:15 Pelger-Huet Anomaly Not Reportable 10/15/21 16:15 Girma Rods Not Reportable 10/15/21 16:15 Platelet Estimate Consistent w auto 10/15/21 16:15 Clumped Platelets Not Reportable 10/15/21 16:15 Plt Clumps, EDTA Not Reportable 10/15/21 16:15 Large Platelets Not Reportable 10/15/21 16:15 Giant Platelets Not Reportable 10/15/21 16:15 Platelet Satelliting Not Reportable 10/15/21 16:15 Plt Morphology Comment Not Reportable 10/15/21 16:15 RBC Morphology Not Reportable 10/15/21 16:15 Dimorphic RBCs Not Reportable 10/15/21 16:15 Polychromasia Not Reportable 10/15/21 16:15 Hypochromasia 1+ 10/15/21 16:15 Poikilocytosis Not Reportable 10/15/21 16:15 Anisocytosis Not Reportable 10/15/21 16:15 Microcytosis Not Reportable 10/15/21 16:15 Macrocytosis Not Reportable 10/15/21 16:15 Spherocytes Not Reportable 10/15/21 16:15 Pappenheimer Bodies Not Reportable 10/15/21 16:15 Sickle Cells Not Reportable 10/15/21 16:15 Target Cells Not Reportable 10/15/21 16:15 Tear Drop Cells Not Reportable 10/15/21 16:15 Ovalocytes Not Reportable 10/15/21 16:15 Helmet Cells Not Reportable 10/15/21 16:15 Vaz-Limon Bodies Not Reportable 10/15/21 16:15 Blackwell Rings Not Reportable 10/15/21 16:15 Lucius Cells Not Reportable 10/15/21 16:15 Bite Cells Not Reportable 10/15/21 16:15 Crenated Cell Not Reportable 10/15/21 16:15 Elliptocytes Not Reportable 10/15/21 16:15 Acanthocytes (Spur) Not Reportable 10/15/21 16:15 Rouleaux Not Reportable 10/15/21 16:15 Hemoglobin C Crystals Not Reportable 10/15/21 16:15 Schistocytes Not Reportable 10/15/21 16:15 Malaria parasites Not Reportable 10/15/21 16:15 Brodie Bodies Not Reportable 10/15/21 16:15 Hem Pathologist Commnt No 10/15/21 16:15 PT 14.6 Sec. (12.2-14.9) 10/15/21 16:15 INR 1.03 (0.87-1.13) 10/15/21 16:15 APTT 38.0 Sec. (24.2-36.6) H 10/15/21 16:15 D-Dimer 7433.97 ng/mlDDU (0-234) H 10/15/21 16:15 ABG pH 7.348 pH Units (7.350-7.450) L 10/15/21 16:42 ABG pCO2 57.0 mm Hg 10/15/21 16:42 ABG pO2 75.4 mm Hg (80.0-90.0) L 10/15/21 16:42 ABG HCO3 30.6 mmol/L (20.0-26.0) H 10/15/21 16:42 ABG O2 Saturation 94.3 % (95.0-99.0) L 10/15/21 16:42 ABG O2 Content 14.3 (0.0-44) 10/15/21 16:42 ABG Base Excess 3.9 mmol/L (-2.0-3.0) H 10/15/21 16:42 ABG Hemoglobin 10.9 gm/dl (12.0-16.0) L 10/15/21 16:42 ABG Carboxyhemoglobin 0.8 % (0.0-5.0) 10/15/21 16:42 ABG Methemoglobin 0.6 % (0.0-1.5) 10/15/21 16:42 Oxyhemoglobin 93.1 % (95.0-99.0) L 10/15/21 16:42 FiO2 100 % 10/15/21 16:42 Sodium 134 mmol/L (137-145) L 10/15/21 16:15 Potassium 4.6 mmol/L (3.6-5.0) 10/15/21 16:15 Chloride 89.6 mmol/L (98-107) L 10/15/21 16:15 Carbon Dioxide 26 mmol/L (22-30) 10/15/21 16:15 Anion Gap 23 mmol/L 10/15/21 16:15 BUN 27 mg/dL (7-17) H 10/15/21 16:15 Creatinine 0.6 mg/dL (0.6-1.2) 10/15/21 16:15 Estimated GFR > 60 ml/min 10/15/21 16:15 BUN/Creatinine Ratio 45 % 10/15/21 16:15 Glucose 221 mg/dL (65-100) H 10/15/21 16:15 Glucose 234 mg/dL (65-100) H 10/15/21 16:15 Lactic Acid 3.10 mmol/L (0.7-2.0) H* 10/15/21 18:00 Calcium 8.7 mg/dL (8.4-10.2) 10/15/21 16:15 Magnesium 1.40 mg/dL (1.7-2.3) L 10/15/21 16:15 Ferritin 418.8 ng/mL (10.0-200.0) H 10/15/21 16:15 Ferritin 421.6 ng/mL (10.0-200.0) H 10/15/21 16:15 Total Bilirubin 0.50 mg/dL (0.1-1.2) 10/15/21 16:15 Direct Bilirubin 0.3 mg/dL (0-0.2) H 10/15/21 16:15 Indirect Bilirubin 0.2 mg/dL 10/15/21 16:15 AST 31 units/L (5-40) 10/15/21 16:15 ALT 18 units/L (7-56) 10/15/21 16:15 Alkaline Phosphatase 66 units/L (35-129) 10/15/21 16:15 Ammonia 38.0 umol/L (25-60) 10/15/21 16:15 Lactate Dehydrogenase 233 units/L (91-180) H 10/15/21 16:15 Troponin T 0.038 ng/mL (0.00-0.029) H 10/15/21 20:58 C-Reactive Protein 25.90 mg/dL (0.00-1.30) H 10/15/21 16:15 NT-Pro-B Natriuret Pep 6606 pg/mL (0-900) H 10/15/21 16:15 Total Protein 6.2 g/dL (6.3-8.2) L 10/15/21 16:15 Albumin 3.1 g/dL (3.9-5) L 10/15/21 16:15 Albumin/Globulin Ratio 1.0 % 10/15/21 16:15 Triglycerides 122 mg/dL (2-149) 10/15/21 18:00 Cholesterol 99 mg/dL (50-199) 10/15/21 18:00 LDL Cholesterol Direct 46 mg/dL (50-130) L 10/15/21 18:00 HDL Cholesterol 25 mg/dL (40-59) L 10/15/21 18:00 Cholesterol/HDL Ratio 3.96 % 10/15/21 18:00 Lipase 19 units/L (13-60) 10/15/21 16:15 Urine Color Yellow (Yellow) 10/15/21 Unknown Urine Turbidity Cloudy (Clear) 10/15/21 Unknown Urine pH 5.0 (5.0-7.0) 10/15/21 Unknown Ur Specific Laurel 1.016 (1.003-1.030) 10/15/21 Unknown Urine Protein >500 mg/dL (Negative) 10/15/21 Unknown Urine Glucose (UA) 50 mg/dL (Negative) 10/15/21 Unknown Urine Ketones Neg mg/dL (Negative) 10/15/21 Unknown Urine Blood Neg (Negative) 10/15/21 Unknown Urine Nitrite Neg (Negative) 10/15/21 Unknown Urine Bilirubin Neg (Negative) 10/15/21 Unknown Urine Urobilinogen < 2.0 mg/dL (<2.0) 10/15/21 Unknown Ur Leukocyte Esterase Neg (Negative) 10/15/21 Unknown Urine WBC (Auto) 5.0 /HPF (0.0-6.0) 10/15/21 Unknown Urine RBC (Auto) 2.0 /HPF (0.0-6.0) 10/15/21 Unknown U Epithel Cells (Auto) 2.0 /HPF (0-13.0) 10/15/21 Unknown Urine Bacteria (Auto) 1+ /HPF (Negative) 10/15/21 Unknown Calcium Oxalate Crystal 1+ 10/15/21 Unknown Amorphous Crystals 3+ 10/15/21 Unknown Urine Mucus Few /HPF 10/15/21 Unknown Urine Yeast (Budding) 1+ /HPF 10/15/21 Unknown Salicylates < 0.3 mg/dL (2.8-20.0) L 10/15/21 16:15 Urine Opiates Screen Negative 10/15/21 Unknown Urine Methadone Screen Negative 10/15/21 Unknown Acetaminophen 5.0 ug/mL (10.0-30.0) L 10/15/21 16:15 Ur Barbiturates Screen Negative 10/15/21 Unknown Ur Phencyclidine Scrn Negative 10/15/21 Unknown Ur Amphetamines Screen Negative 10/15/21 Unknown U Benzodiazepines Scrn Negative 10/15/21 Unknown Urine Cocaine Screen Negative 10/15/21 Unknown U Marijuana (THC) Screen Negative 10/15/21 Unknown Drugs of Abuse Note Disclamer 10/15/21 Unknown Short CBC 10/15/21 Range/Units 16:15 WBC 17.2 H (4.5-11.0) K/mm3 Hgb 9.0 L (10.1-14.3) gm/dl Hct 29.7 L (30.3-42.9) % Plt Count 308 (140-440) K/mm3 BMP 10/15/21 10/15/21 10/16/21 16:15 16:15 01:55 Sodium 134 L 135 L Potassium 4.6 4.4 Chloride 89.6 L 94.9 L Carbon Dioxide 26 25 BUN 27 H 28 H Creatinine 0.6 0.6 Glucose 234 H 221 H 226 H Calcium 8.7 8.4 Cardiac Enzymes 10/15/21 10/15/21 Range/Units 18:00 20:58 Troponin T 0.036 H 0.038 H (0.00-0.029) ng/mL Liver Function 10/15/21 Range/Units 16:15 Total Bilirubin 0.50 (0.1-1.2) mg/dL Direct Bilirubin 0.3 H (0-0.2) mg/dL AST 31 (5-40) units/L ALT 18 (7-56) units/L Alkaline Phosphatase 66 (35-129) units/L Albumin 3.1 L (3.9-5) g/dL Urine 10/15/21 Range/Units Unknown Urine Color Yellow (Yellow) Urine pH 5.0 (5.0-7.0) Ur Specific Laurel 1.016 (1.003-1.030) Urine Protein >500 (Negative) mg/dL Urine Glucose (UA) 50 (Negative) mg/dL Microbiology: Microbiology 10/15/21 16:15 Peripheral/Venous Blood Culture - Preliminary Culture in Progress 10/15/21 16:15 Peripheral/Venous Blood Culture - Preliminary Culture in Progress - Imaging and Cardiology Chest x-ray: report reviewed Imaging and Cardiology: Chest x-ray Bilateral parenchymal opacities are probably inflammatory. Bacterial pneumonia, atypical Causes of pneumonia and aspiration should be co nsidered Magallanes/IV: Voiding Method Indwelling Catheter Assessment and Plan Assessment and plan: Critical care statement The high probability OF a clinically significant sudden or life-threatening deterioration of the cardiorespiratory system and endocrine system required my full and direct attention, intervention and postoperative management. The aggregate critical care time was 40 minutes. The time is in addition to time spent performing reported procedures but includes the followin: Data review and interpretation 2: Patient assessment and monitoring of vital signs 3: Documentation 4:: Medication orders and management Advance Directives: Yes (Full code) VTE prophylaxis?: Chemical Plan of care discussed with patient/family: Yes - Patient Problems (1) Acute respiratory failure with hypoxia Current Visit: Yes Status: Acute Plan to address problem: Patient is intubated and on ventilator Rubble Placer consult Vent management (2) Aspiration pneumonia Current Visit: Yes Status: Acute Plan to address problem: Highly likely given the age and bilateral Patient initiated on cefepime and vancomycin to cover gram-negative's like Pseudomonas etc. (3) Sepsis Current Visit: Yes Status: Acute Plan to address problem: Sepsis protocol Lactic acid is elevated IV cefepime and vancomycin ID consult requested (4) Bilateral pneumonia Current Visit: Yes Status: Acute Plan to address problem: Possible aspiration pneumonia Patient initiated on cefepime and vancomycin COVID to be ruled out (5) Person under investigation for COVID-19 Current Visit: Yes Status: Acute Plan to address problem: Coronavirus PCR in a.m. (6) Anemia Current Visit: Yes Status: Chronic Qualifiers: Anemia type: unspecified type Qualified Code(s): D64.9 - Anemia, unspecified Plan to address problem: Anemia work-up No need for transfusion (7) CHF (congestive heart failure) Current Visit: Yes Status: Chronic Qualifiers: Heart failure type: combined systolic and diastolic Heart failure chronicity: chronic Qualified Code(s): I50.42 - Chronic combined systolic (congestive) and diastolic (congestive) heart failure Plan to address problem: Elevated BNP Check echocardiogram for ejection fraction IV Lasix every 24 hours Cardiology consult requested (8) History of stroke Current Visit: Yes Status: Chronic Plan to address problem: Supportive care (9) Malnutrition Current Visit: Yes Status: Chronic Qualifiers: Protein-calorie malnutrition severity: moderate Plan to address problem: Dietitian consult requested (10) Hyponatremia Current Visit: Yes Status: Acute Plan to address problem: Mild (11) DVT prophylaxis Current Visit: Yes Status: Acute Plan to address problem: On anticoagulation GI prophylaxis (12) Advance care planning Current Visit: Yes Status: Acute Plan to address problem: Disease education conducted care plan discussed diagnosis discussed prognosis discussed with son. Patient is full code. Family members acknowledge understanding and agreement with care plan. +30 minutes.
[2021-10-16] MEDS ORDERED: ACETAMINOPHEN 325 MG TAB PO PRN (00:57)
[2021-10-16] MEDS ORDERED: ONDANSETRON 4 MG/2 ML INJ IV PRN (00:57)
[2021-10-16] MEDS ORDERED: SODIUM CHLORIDE 0.9% 1000 ML 1,000 ML IV SCH (01:00)
[2021-10-16] MEDS ORDERED: METOCLOPRAMIDE 10 MG/2 ML INJ IV PRN (01:02)
[2021-10-16] MEDS ORDERED: MORPHINE 2 MG/1 ML INJ IV PRN (01:02)
[2021-10-16] MEDS ORDERED: LIPASE 10,500/PROTEASE 25,000/AMYLASE 43,750 (UNITS) DR CAP FEEDTUBE PRN (01:07)
[2021-10-16] MEDS ORDERED: SIMPLE SYRUP 15 ML FEEDTUBE PRN ×2 (01:07)
[2021-10-16] MEDS ORDERED: SODIUM BICARBONATE 325 MG TAB FEEDTUBE PRN (01:07)
[2021-10-16] MEDS: CEFEPIME/NS 2 GM/100 ML 2 GM/100 ML BAG IV SCH ×3 (01:40→15:51)
[2021-10-16] MEDS ORDERED: VANCOMYCIN PHARMACY TO DOSE IV SCH (02:00)
[2021-10-16 02:24] LABS: Blood Urea Nitrogen 28 mg/dL (7-17); Calcium 8.4 mg/dL (8.4-10.2); Hemolysis Index 30
[2021-10-16 02:32] LABS: BUN/Creatinine Ratio 47
[2021-10-16] MEDS: RIVAROXABAN 10 MG TAB PO SCH ×3 (04:22→21:48)
--- NOTE | 2021-10-16 08:51 | Cat Scan Report ---
CT ABDOMEN AND PELVIS WITH CONTRAST HISTORY: septic shock COMPARISON: No relevant comparison TECHNIQUE: Axial CT images were obtained through the abdomen and pelvis after 100 cc of IV contrast. Sagittal and coronal reformatted images. All CT scans at this location are performed using CT dose re duction for ALARA by means of automated exposure control. FINDINGS: CT ABDOMEN: Lung Bases: Dense consolidations are identified in both lower lobes. Small bilateral pleural effusion s. Moderate to severe cardiomegaly. Liver: No significant abnormality. Biliary: No significant abnormality. Spleen: No significant abnormality. Unenlarged. Pancreas: No significant abnormality. Adrenals: No significant abnormality. Kidneys: There is mild cortical thinning in both kidneys. No obstructive uropathy or focal renal lesi on. Lymphatics: No lymphadenopathy. Vasculature: There are moderate atherosclerotic plaques throughout the arterial structures without ac regan abnormality. Bowel/Peritoneum: No evidence for bowel obstruction or focal inflammation. A PEG tube is in position and unremarkable. There is moderate fecal matter in the rectal vault. The appendix is not confidently identified. There is trace to small abdominal ascites. No encapsulated fluid collection or free air. CT PELVIS: : The uterus and adnexa are unremarkable. The bladder is decompressed with a Magallanes catheter. No becca ss abnormality. Osseous Structures: Mild osteopenia seen and degenerative changes in the thoracolumbar spine. Additional Findings: None IMPRESSION: No acute process is appreciated in the abdomen or pelvis. Dense consolidations and small pleural effusions are identified at both lung bases. Cardiomegaly. Small ascites. Signer Name: Eulalio Callahan Jr, MD Signed: 10/16/2021 8:47 AM Workstation Name: [id number]
--- NOTE | 2021-10-16 09:13 | Cat Scan Report ---
CT angio chest INDICATION / CLINICAL INFORMATION: hypoxic respiratory failure. TECHNIQUE: Axial CT images were obtained through the chest after injection of IV contrast. 3 plane MIP and/or 3D reconstructions were produced. All CT scans at this location are performed using CT dose reduction f or ALARA by means of automated exposure control. COMPARISON: None available. FINDINGS: PULMONARY ARTERIES: Central pulmonary artery enlargement. No pulmonary emboli. HEART: No significant abnormality. MEDIASTINUM / REGIS: No significant abnormality. LUNGS: There is intraluminal opacification and bronchi.. There is bilateral consolidation in the left lung. Moderate bilateral pleural effusions. No pneumothorax. ADDITIONAL FINDINGS: Endotracheal tube terminates appropriate above the michael. Enteric tube terminat es at the GE junction. Reflux of contrast into the inferior vena cava and hepatic veins. UPPER ABDOMEN: No acute findings. SKELETAL STRUCTURES: No significant osseous abnormality. IMPRESSION: 1. No CT evidence for pulmonary embolism. 2. There is significant bilateral consolidation in the left greater than right lung. Aspiration is a consideration given the intraluminal opacification of the bronchi. Findings could also be infectious in etiology. 3. Bilateral pleural effusions. 4. Central pulmonary arterial enlargement consistent with pulmonary arterial hypertension. 5. Findings suggestive of elevated right atrial filling pressures. Signer Name: Shahid Vasquez MD Signed: 10/16/2021 9:08 AM Workstation Name: [id number]
[2021-10-16 09:28] LABS: Hematocrit 24.8 % (30.3-42.9); Hemoglobin 7.6 gm/dl (10.1-14.3); Mean Corpuscular HGB Conc 31 % (30-34); Mean Corpuscular Volume 77 fl (79-97); Platelet Count 257 K/mm3 (140-440); Red Cell Distribution Width 17.5 % (13.2-15.2)
[2021-10-16 09:47] LABS: Alanine Aminotransferase 16 units/L (7-56); Albumin 2.4 g/dL (3.9-5); Blood Urea Nitrogen 28 mg/dL (7-17); Calcium 8.3 mg/dL (8.4-10.2); Hemolysis Index 4
[2021-10-16 09:50] LABS: BUN/Creatinine Ratio 47
--- NOTE | 2021-10-16 10:54 | Consultation ---
History of Present Illness - Reason for Consult Consult date: 10/16/21 sepsis, ?aspiration pneumonia Requesting physician: LIZBETH ANGULO - History of Present Illness The patient is an 86-year-old female with hypertension, prior CVA, diabetes, CHF, indwelling cardiac device was admitted with worsening shortness of breath, found to be in severe respiratory distress. Patient was placed on BiPAP in the ER, subsequently ended up getting intubated, now admitted to ICU. Had a low- grade temperature of 100 F on admission. Labs showed leukocytosis with WBC 17. 2, D-dimer 7433, lactate of 5.6, proBNP 03/12/2006, CRP 25.9, ferritin 418.8. UA with no pyuria. Briefly required pressors. Chest x-ray showed bilateral pneumonia. CT also showed bilateral consolidation, left greater than right with concern for aspiration. CT abdomen did not reveal any acute intra-abdominal process. Review of Systems: Unable to obtain, on the vent Medications and Allergies Allergies Allergy/AdvReac Type Severity Reaction Status Date / Time No Known Allergies Allergy Unverified 10/15/21 17:14 Home Medications Medication Instructions Recorded Confirmed Last Taken Type Metformin HCl 1,000 mg PO BID 10/15/21 10/15/21 Unknown History Triamterene-Hctz 37.5-25 mg Cp 1 tab PO DAILY 10/15/21 10/15/21 Unknown History XARELTO (see DOAC order set to 2.5 mg PO BID 10/15/21 10/15/21 Unknown History order) levETIRAcetam [Keppra TAB] 1 tab PO BID 10/15/21 10/15/21 Unknown History Active Meds: Active Medications Acetaminophen (Acetaminophen 325 Mg Tab) 650 mg PO Q4H PRN PRN Reason: Pain MILD(1-3)/Fever >100.5/KEYS Lipase/Protease/Amylase (Lipase 10,500/Protease 25,000/Amylase 43,750 (Units) Dr Schuler) 1 each FEEDTUBE PRN PRN PRN Reason: For Clogged Feeding Tube Famotidine (Famotidine 20 Mg/2 Ml Inj) 20 mg IV BID [facility] Propofol (Diprivan 10 Mg/Ml) 1,000 mg in 100 mls @ 1.633 mls/hr IV TITR [facility]; Protocol Last Titration: 10/16/21 01:00 Dose: 5 mcg/kg/min, 1.633 mls/hr NORepinephrine/NS 8 MG-250 ML (Norepinephrine/Ns 8 Mg-250 Ml (Double Conc)) 8 mg in 250 mls @ 3.75 mls/hr IV TITRATE [facility]; Protocol Last Titration: 10/16/21 01:25 Dose: 0 mcg/min, 0 mls/hr Vancomycin HCl 750 mg/ Sodium (Chloride) 265 mls @ 166.667 mls/hr IV Q24H [facility] Cefepime HCl (Cefepime/Ns 2 Gm/100 Ml) 2 gm in 100 mls @ 200 mls/hr IV Q12H [facility]; Protocol Insulin Human Lispro (Insulin Lispro 100 Unit/Ml) 0 unit SUB-Q Q6HR [facility]; Prot ocol Levetiracetam (Levetiracetam 500 Mg/5 Ml Oral Liqd) 500 mg PO BID [facility] Metoclopramide HCl (Metoclopramide 10 Mg/2 Ml Inj) 10 mg IV Q6H PRN PRN Reason: Nausea And Vomiting Morphine Sulfate (Morphine 2 Mg/1 Ml Inj) 2 mg IV Q4H PRN PRN Reason: Pain, Moderate (4-6) Ondansetron HCl (Ondansetron 4 Mg/2 Ml Inj) 4 mg IV Q3H PRN PRN Reason: Nausea And Vomiting Rivaroxaban (Rivaroxaban 10 Mg Tab) 2.5 mg PO BID [facility] Last Admin: 10/16/21 04:22 Dose: 2.5 mg Simple Syrup (Simple Syrup 15 Ml) 15 ml FEEDTUBE PRN PRN PRN Reason: Hypoglycemia Simple Syrup (Simple Syrup 15 Ml) 30 ml FEEDTUBE PRN PRN PRN Reason: Hypoglycemia Sodium Bicarbonate (Sodium Bicarbonate 325 Mg Tab) 325 mg FEEDTUBE PRN PRN PRN Reason: For Clogged Feeding Tube Sodium Chloride (Sodium Chloride 0.9% 10 Ml Flush Syringe) 10 ml IV BID [facility] Last Admin: 10/16/21 01:22 Dose: 10 ml Sodium Chloride (Sodium Chloride 0.9% 10 Ml Flush Syringe) 10 ml IV PRN PRN PRN Reason: LINE FLUSH Physical Examination - Physical Exam Narrative exam: Physical Exam: Constitutional: sedated, intubated, on the vent Head, Ears, Nose: Normocephalic, atraumatic. External ears, nose normal Eyes: Conjunctivae/corneas clear. No icterus. No ptosis. Neck: intubated Oral: intubated Cardiovascular: S1, S2 + Respiratory: AE fair bilaterally and equal GI: Soft, bowel sounds + Musculoskeletal: No pedal edema, no cyanosis. Skin: No rash or abscess Hem/Lymphatic: No palpable cervical or supraclavicular nodes. No lymphangitis Psych: no agitation Neurological: sedated, intubated, on the vent, exam limited - Constitutional Vitals: Vital Signs Temp Pulse Resp BP Pulse Ox 98.5 F 80 22 86/46 98 10/16/21 04:00 10/16/21 09:31 10/16/21 09:31 10/16/21 09:31 10/16/21 09:31 Temperature -Last 24 Hours Temperature 98.5 F Temperature 100.0 F Results - Labs CBC & Chem 7: 10/16/21 09:05 10/16/21 09:05 Labs: Abnormal lab results 10/15/21 10/15/21 10/15/21 Range/Units 16:15 16:15 16:15 WBC 17.2 H (4.5-11.0) K/mm3 RBC (3.65-5.03) M/mm3 Hgb 9.0 L (10.1-14.3) gm/dl Hct 29.7 L (30.3-42.9) % MCV 78 L (79-97) fl MCH 24 L (28-32) pg RDW 17.5 H (13.2-15.2) % Seg Neuts % (Manual) 88.0 H (40.0-70.0) % Lymphocytes % (Manual) 3.0 L (13.4-35.0) % Seg Neutrophils # Man 15.1 H (1.8-7.7) K/mm3 Lymphocytes # (Manual) 0.5 L (1.2-5.4) K/mm3 APTT 38.0 H (24.2-36.6) Sec. D-Dimer 7433.97 H (0-234) ng/mlDDU ABG pH (7.350-7.450) pH Units ABG pO2 (80.0-90.0) mm Hg ABG HCO3 (20.0-26.0) mmol/L ABG O2 Saturation (95.0-99.0) % ABG Base Excess (-2.0-3.0) mmol/L ABG Hemoglobin (12.0-16.0) gm/dl ABG Sodium (136.0-145.0) mmol/L ABG Chloride (98-107) mmol/L ABG Glucose (65-95) mg/dL Oxyhemoglobin (95.0-99.0) % Sodium (137-145) mmol/L Chloride (98-107) mmol/L BUN (7-17) mg/dL Glucose (65-100) mg/dL Lactic Acid 5.60 H* (0.7-2.0) mmol/L Calcium (8.4-10.2) mg/dL Magnesium (1.7-2.3) mg/dL Ferritin (10.0-200.0) ng/mL Direct Bilirubin (0-0.2) mg/dL Lactate Dehydrogenase (91-180) units/L Troponin T (0.00-0.029) ng/mL C-Reactive Protein (0.00-1.30) mg/dL NT-Pro-B Natriuret Pep (0-900) pg/mL Total Protein (6.3-8.2) g/dL Albumin (3.9-5) g/dL LDL Cholesterol Direct (50-130) mg/dL HDL Cholesterol (40-59) mg/dL Arterial Blood Glucose (65-95) mg/dL Salicylates (2.8-20.0) mg/dL Acetaminophen (10.0-30.0) ug/mL 10/15/21 10/15/21 10/15/21 Range/Units 16:15 16:15 16:15 WBC (4.5-11.0) K/mm3 RBC (3.65-5.03) M/mm3 Hgb (10.1-14.3) gm/dl Hct (30.3-42.9) % MCV (79-97) fl MCH (28-32) pg RDW (13.2-15.2) % Seg Neuts % (Manual) (40.0-70.0) % Lymphocytes % (Manual) (13.4-35.0) % Seg Neutrophils # Man (1.8-7.7) K/mm3 Lymphocytes # (Manual) (1.2-5.4) K/mm3 APTT (24.2-36.6) Sec. D-Dimer (0-234) ng/mlDDU ABG pH (7.350-7.450) pH Units ABG pO2 (80.0-90.0) mm Hg ABG HCO3 (20.0-26.0) mmol/L ABG O2 Saturation (95.0-99.0) % ABG Base Excess (-2.0-3.0) mmol/L ABG Hemoglobin (12.0-16.0) gm/dl ABG Sodium (136.0-145.0) mmol/L ABG Chloride (98-107) mmol/L ABG Glucose (65-95) mg/dL Oxyhemoglobin (95.0-99.0) % Sodium 134 L (137-145) mmol/L Chloride 89.6 L (98-107) mmol/L BUN 27 H (7-17) mg/dL Glucose 234 H (65-100) mg/dL Lactic Acid (0.7-2.0) mmol/L Calcium (8.4-10.2) mg/dL Magnesium 1.40 L (1.7-2.3) mg/dL Ferritin (10.0-200.0) ng/mL Direct Bilirubin 0.3 H (0-0.2) mg/dL Lactate Dehydrogenase (91-180) units/L Troponin T (0.00-0.029) ng/mL C-Reactive Protein (0.00-1.30) mg/dL NT-Pro-B Natriuret Pep 6606 H (0-900) pg/mL Total Protein 6.2 L (6.3-8.2) g/dL Albumin 3.1 L (3.9-5) g/dL LDL Cholesterol Direct (50-130) mg/dL HDL Cholesterol (40-59) mg/dL Arterial Blood Glucose (65-95) mg/dL Salicylates < 0.3 L (2.8-20.0) mg/dL Acetaminophen 5.0 L (10.0-30.0) ug/mL 10/15/21 10/15/21 10/15/21 Range/Units 16:15 16:15 16:15 WBC (4.5-11.0) K/mm3 RBC (3.65-5.03) M/mm3 Hgb (10.1-14.3) gm/dl Hct (30.3-42.9) % MCV (79-97) fl MCH (28-32) pg RDW (13.2-15.2) % Seg Neuts % (Manual) (40.0-70.0) % Lymphocytes % (Manual) (13.4-35.0) % Seg Neutrophils # Man (1.8-7.7) K/mm3 Lymphocytes # (Manual) (1.2-5.4) K/mm3 APTT (24.2-36.6) Sec. D-Dimer (0-234) ng/mlDDU ABG pH (7.350-7.450) pH Units ABG pO2 (80.0-90.0) mm Hg ABG HCO3 (20.0-26.0) mmol/L ABG O2 Saturation (95.0-99.0) % ABG Base Excess (-2.0-3.0) mmol/L ABG Hemoglobin (12.0-16.0) gm/dl ABG Sodium (136.0-145.0) mmol/L ABG Chloride (98-107) mmol/L ABG Glucose (65-95) mg/dL Oxyhemoglobin (95.0-99.0) % Sodium (137-145) mmol/L Chloride (98-107) mmol/L BUN (7-17) mg/dL Glucose 221 H (65-100) mg/dL Lactic Acid (0.7-2.0) mmol/L Calcium (8.4-10.2) mg/dL Magnesium (1.7-2.3) mg/dL Ferritin 418.8 H 421.6 H (10.0-200.0) ng/mL Direct Bilirubin (0-0.2) mg/dL Lactate Dehydrogenase 233 H (91-180) units/L Troponin T (0.00-0.029) ng/mL C-Reactive Protein 25.90 H (0.00-1.30) mg/dL NT-Pro-B Natriuret Pep (0-900) pg/mL Total Protein (6.3-8.2) g/dL Albumin (3.9-5) g/dL LDL Cholesterol Direct (50-130) mg/dL HDL Cholesterol (40-59) mg/dL Arterial Blood Glucose (65-95) mg/dL Salicylates (2.8-20.0) mg/dL Acetaminophen (10.0-30.0) ug/mL 10/15/21 10/15/21 10/15/21 Range/Units 16:42 18:00 18:00 WBC (4.5-11.0) K/mm3 RBC (3.65-5.03) M/mm3 Hgb (10.1-14.3) gm/dl Hct (30.3-42.9) % MCV (79-97) fl MCH (28-32) pg RDW (13.2-15.2) % Seg Neuts % (Manual) (40.0-70.0) % Lymphocytes % (Manual) (13.4-35.0) % Seg Neutrophils # Man (1.8-7.7) K/mm3 Lymphocytes # (Manual) (1.2-5.4) K/mm3 APTT (24.2-36.6) Sec. D-Dimer (0-234) ng/mlDDU ABG pH 7.348 L (7.350-7.450) pH Units ABG pO2 75.4 L (80.0-90.0) mm Hg ABG HCO3 30.6 H (20.0-26.0) mmol/L ABG O2 Saturation 94.3 L (95.0-99.0) % ABG Base Excess 3.9 H (-2.0-3.0) mmol/L ABG Hemoglobin 10.9 L (12.0-16.0) gm/dl ABG Sodium (136.0-145.0) mmol/L ABG Chloride (98-107) mmol/L ABG Glucose (65-95) mg/dL Oxyhemoglobin 93.1 L (95.0-99.0) % Sodium (137-145) mmol/L Chloride (98-107) mmol/L BUN (7-17) mg/dL Glucose (65-100) mg/dL Lactic Acid 3.10 H* (0.7-2.0) mmol/L Calcium (8.4-10.2) mg/dL Magnesium (1.7-2.3) mg/dL Ferritin (10.0-200.0) ng/mL Direct Bilirubin (0-0.2) mg/dL Lactate Dehydrogenase (91-180) units/L Troponin T 0.036 H (0.00-0.029) ng/mL C-Reactive Protein (0.00-1.30) mg/dL NT-Pro-B Natriuret Pep (0-900) pg/mL Total Protein (6.3-8.2) g/dL Albumin (3.9-5) g/dL LDL Cholesterol Direct 46 L (50-130) mg/dL HDL Cholesterol 25 L (40-59) mg/dL Arterial Blood Glucose (65-95) mg/dL Salicylates (2.8-20.0) mg/dL Acetaminophen (10.0-30.0) ug/mL 10/15/21 10/16/21 10/16/21 Range/Units 20:58 01:55 04:50 WBC (4.5-11.0) K/mm3 RBC (3.65-5.03) M/mm3 Hgb (10.1-14.3) gm/dl Hct (30.3-42.9) % MCV (79-97) fl MCH (28-32) pg RDW (13.2-15.2) % Seg Neuts % (Manual) (40.0-70.0) % Lymphocytes % (Manual) (13.4-35.0) % Seg Neutrophils # Man (1.8-7.7) K/mm3 Lymphocytes # (Manual) (1.2-5.4) K/mm3 APTT (24.2-36.6) Sec. D-Dimer (0-234) ng/mlDDU ABG pH 7.490 H (7.350-7.450) pH Units ABG pO2 (80.0-90.0) mm Hg ABG HCO3 (20.0-26.0) mmol/L ABG O2 Saturation (95.0-99.0) % ABG Base Excess (-2.0-3.0) mmol/L ABG Hemoglobin 9.7 L (12.0-16.0) gm/dl ABG Sodium 128.9 L (136.0-145.0) mmol/L ABG Chloride 96.0 L (98-107) mmol/L ABG Glucose 235 H (65-95) mg/dL Oxyhemoglobin (95.0-99.0) % Sodium 135 L (137-145) mmol/L Chloride 94.9 L (98-107) mmol/L BUN 28 H (7-17) mg/dL Glucose 226 H (65-100) mg/dL Lactic Acid (0.7-2.0) mmol/L Calcium (8.4-10.2) mg/dL Magnesium (1.7-2.3) mg/dL Ferritin (10.0-200.0) ng/mL Direct Bilirubin (0-0.2) mg/dL Lactate Dehydrogenase (91-180) units/L Troponin T 0.038 H (0.00-0.029) ng/mL C-Reactive Protein (0.00-1.30) mg/dL NT-Pro-B Natriuret Pep (0-900) pg/mL Total Protein (6.3-8.2) g/dL Albumin (3.9-5) g/dL LDL Cholesterol Direct (50-130) mg/dL HDL Cholesterol (40-59) mg/dL Arterial Blood Glucose 235 H (65-95) mg/dL Salicylates (2.8-20.0) mg/dL Acetaminophen (10.0-30.0) ug/mL 10/16/21 10/16/21 10/16/21 Range/Units 09:05 09:05 09:05 WBC 14.9 H (4.5-11.0) K/mm3 RBC 3.20 L (3.65-5.03) M/mm3 Hgb 7.6 L (10.1-14.3) gm/dl Hct 24.8 L (30.3-42.9) % MCV 77 L (79-97) fl MCH 24 L (28-32) pg RDW 17.5 H (13.2-15.2) % Seg Neuts % (Manual) (40.0-70.0) % Lymphocytes % (Manual) (13.4-35.0) % Seg Neutrophils # Man (1.8-7.7) K/mm3 Lymphocytes # (Manual) (1.2-5.4) K/mm3 APTT (24.2-36.6) Sec. D-Dimer (0-234) ng/mlDDU ABG pH (7.350-7.450) pH Units ABG pO2 (80.0-90.0) mm Hg ABG HCO3 (20.0-26.0) mmol/L ABG O2 Saturation (95.0-99.0) % ABG Base Excess (-2.0-3.0) mmol/L ABG Hemoglobin (12.0-16.0) gm/dl ABG Sodium (136.0-145.0) mmol/L ABG Chloride (98-107) mmol/L ABG Glucose (65-95) mg/dL Oxyhemoglobin (95.0-99.0) % Sodium 132 L (137-145) mmol/L Chloride 93.2 L (98-107) mmol/L BUN 28 H (7-17) mg/dL Glucose 225 H (65-100) mg/dL Lactic Acid 2.30 H* (0.7-2.0) mmol/L Calcium 8.3 L (8.4-10.2) mg/dL Magnesium 1.30 L (1.7-2.3) mg/dL Ferritin (10.0-200.0) ng/mL Direct Bilirubin (0-0.2) mg/dL Lactate Dehydrogenase (91-180) units/L Troponin T (0.00-0.029) ng/mL C-Reactive Protein (0.00-1.30) mg/dL NT-Pro-B Natriuret Pep (0-900) pg/mL Total Protein 5.7 L (6.3-8.2) g/dL Albumin 2.4 L (3.9-5) g/dL LDL Cholesterol Direct (50-130) mg/dL HDL Cholesterol (40-59) mg/dL Arterial Blood Glucose (65-95) mg/dL Salicylates (2.8-20.0) mg/dL Acetaminophen (10.0-30.0) ug/mL - Imaging and Cardiology Chest x-ray: report reviewed, image reviewed (b/l pna) CT scan - chest: report reviewed, image reviewed (b/l pna) Assessment and Plan Cultures: 10/15/2021 blood culture: In process A/P: 86-year-old female with hypertension, prior CVA, diabetes, CHF, indwelling cardiac device admitted with resp distress: #Severe sepsis with septic shock, likely secondary to bilateral pneumonia with possible aspiration pneumonia. Labs showed leukocytosis with WBC 17.2, D-dimer 7433, lactate of 5.6, proBNP 03/12/2006, CRP 25.9, ferritin 418.8. UA with no pyuria. Briefly required pressors #Acute hypoxic respiratory failure: on the vent #CHF, indwelling cardiac device: BNP elevated. #Prior CVA Recs: Empiric IV cefepime (dose reduced to 2 gm q12 hrs), IV vancomycin Follow-up blood and sputum cultures Follow-up COVID-19 PCR Yogi Maher MD, FACP, [facility] ([facility] O: [phone] F: [phone]
[2021-10-16] MEDS: FAMOTIDINE 20 MG/2 ML INJ IV SCH ×2 (11:36→21:48)
[2021-10-16] MEDS: levETIRAcetam 500 MG/5 ML ORAL LIQD PO SCH ×2 (11:36→21:48)
[2021-10-16] MEDS: INSULIN LISPRO 100 UNIT/ML SUB-Q SCH ×2 (11:45→15:52)
--- NOTE | 2021-10-16 12:58 | Consultation ---
History of Present Illness Consult date: 10/16/21 Consult reason: shortness of breath History of present illness: Patient is an 86-year-old woman who presented with altered mental status and respiratory distress, culminating in acute respiratory failure. She is currently in the ICU on the vent. Cardiology consultation is requested for CHF evaluation. The patient has no previous records to refer to in the hospital system. She currently remains sedated, on the vent. On the vehicle monitor technician, she has a ventricular paced rhythm at 80. Chest x-ray shows the dual-chamber pacemaker, mild to moderate cardiomegaly, and a left lower lobe consolidation. There is no interstitial edema or heart failure. Laboratory exam shows leukocytosis of 17,000. I do not see any evidence of COVID-19 lab assessment. Past History Past Medical History: hypertension Past Surgical History: Other (Cardiac pacemaker) Medications and Allergies Allergies Allergy/AdvReac Type Severity Reaction Status Date / Time lisinopril Allergy Unknown Verified 10/16/21 12:24 Home Medications Medication Instructions Recorded Confirmed Last Taken Type Metformin HCl 1,000 mg PO BID 10/15/21 10/15/21 Unknown History Triamterene-Hctz 37.5-25 mg Cp 1 tab PO DAILY 10/15/21 10/15/21 Unknown History XARELTO (see DOAC order set to 2.5 mg PO BID 10/15/21 10/15/21 Unknown History order) levETIRAcetam [Keppra TAB] 1 tab PO BID 10/15/21 10/15/21 Unknown History Active Meds: Active Medications Acetaminophen (Acetaminophen 325 Mg Tab) 650 mg PO Q4H PRN PRN Reason: Pain MILD(1-3)/Fever >100.5/KEYS Lipase/Protease/Amylase (Lipase 10,500/Protease 25,000/Amylase 43,750 (Units) Dr Schuler) 1 each FEEDTUBE PRN PRN PRN Reason: For Clogged Feeding Tube Famotidine (Famotidine 20 Mg/2 Ml Inj) 20 mg IV BID [facility] Last Admin: 10/16/21 11:36 Dose: 20 mg Propofol (Diprivan 10 Mg/Ml) 1,000 mg in 100 mls @ 1.633 mls/hr IV TITR [facility]; Protocol Last Titration: 10/16/21 01:00 Dose: 5 mcg/kg/min, 1.633 mls/hr NORepinephrine/NS 8 MG-250 ML (Norepinephrine/Ns 8 Mg-250 Ml (Double Conc)) 8 mg in 250 mls @ 3.75 mls/hr IV TITRATE [facility]; Protocol Last Titration: 10/16/21 12:22 Dose: 1 mcg/min, 1.875 mls/hr Vancomycin HCl 750 mg/ Sodium (Chloride) 265 mls @ 166.667 mls/hr IV Q24H [facility] Cefepime HCl (Cefepime/Ns 2 Gm/100 Ml) 2 gm in 100 mls @ 200 mls/hr IV Q12H [facility]; Protocol Insulin Human Lispro (Insulin Lispro 100 Unit/Ml) 0 unit SUB-Q Q6HR [facility]; Protocol Last Admin: 10/16/21 11:45 Dose: 4 unit Levetiracetam (Levetiracetam 500 Mg/5 Ml Oral Liqd) 500 mg PO BID [facility] Last Admin: 10/16/21 11:36 Dose: 500 mg Metoclopramide HCl (Metoclopramide 10 Mg/2 Ml Inj) 10 mg IV Q6H PRN PRN Reason: Nausea And Vomiting Morphine Sulfate (Morphine 2 Mg/1 Ml Inj) 2 mg IV Q4H PRN PRN Reason: Pain, Moderate (4-6) Ondansetron HCl (Ondansetron 4 Mg/2 Ml Inj) 4 mg IV Q3H PRN PRN Reason: Nausea And Vomiting Rivaroxaban (Rivaroxaban 10 Mg Tab) 2.5 mg PO BID [facility] Last Admin: 10/16/21 11:45 Dose: 2.5 mg Simple Syrup (Simple Syrup 15 Ml) 15 ml FEEDTUBE PRN PRN PRN Reason: Hypoglycemia Simple Syrup (Simple Syrup 15 Ml) 30 ml FEEDTUBE PRN PRN PRN Reason: Hypoglycemia Sodium Bicarbonate (Sodium Bicarbonate 325 Mg Tab) 325 mg FEEDTUBE PRN PRN PRN Reason: For Clogged Feeding Tube Sodium Chloride (Sodium Chloride 0.9% 10 Ml Flush Syringe) 10 ml IV BID [facility] Last Admin: 10/16/21 01:22 Dose: 10 ml Sodium Chloride (Sodium Chloride 0.9% 10 Ml Flush Syringe) 10 ml IV PRN PRN PRN Reason: LINE FLUSH Review of Systems ROS unobtainable: due to endotracheal tube, due to mental status Physical Examination Vital Signs Pulse Pulse Ox 80 93 10/15/21 15:30 10/15/21 15:30 General appearance: other (Patient is sedated, on the ventilator) HEENT: Positive: Other (Pupils fixed) Neck: Positive: neck supple Cardiac: Positive: Regular Rhythm Lungs: Positive: Decreased Breath Sounds Neuro: Positive: Other (Patient is sedated, on the ventilator) Abdomen: Positive: Soft Female genitourinary: deferred Skin: Positive: Clear Extremities: Absent: edema Results 10/16/21 09:05 10/16/21 09:05 Cardiac Enzymes 10/15/21 10/15/21 10/16/21 Range/Units 16:15 16:15 09:05 AST 31 26 (5-40) units/L Lactate Dehydrogenase 233 H (91-180) units/L Coagulation 10/15/21 Range/Units 16:15 PT 14.6 (12.2-14.9) Sec. INR 1.03 (0.87-1.13) APTT 38.0 H (24.2-36.6) Sec. Lipids 10/15/21 Range/Units 18:00 Triglycerides 122 (2-149) mg/dL Cholesterol 99 (50-199) mg/dL HDL Cholesterol 25 L (40-59) mg/dL Cholesterol/HDL Ratio 3.96 % CBC 10/15/21 10/16/21 Range/Units 16:15 09:05 WBC 17.2 H 14.9 H (4.5-11.0) K/mm3 RBC 3.80 3.20 L (3.65-5.03) M/mm3 Hgb 9.0 L 7.6 L (10.1-14.3) gm/dl Hct 29.7 L 24.8 L (30.3-42.9) % Plt Count 308 257 (140-440) K/mm3 Comprehensive Metabolic Panel 10/15/21 10/15/21 10/16/21 Range/Units 16:15 16:15 01:55 Sodium 134 L 135 L (137-145) mmol/L Potassium 4.6 4.4 (3.6-5.0) mmol/L Chloride 89.6 L 94.9 L (98-107) mmol/L Carbon Dioxide 26 25 (22-30) mmol/L BUN 27 H 28 H (7-17) mg/dL Creatinine 0.6 0.6 (0.6-1.2) mg/dL Glucose 234 H 221 H 226 H (65-100) mg/dL Calcium 8.7 8.4 (8.4-10.2) mg/dL Direct Bilirubin 0.3 H (0-0.2) mg/dL Indirect Bilirubin 0.2 mg/dL AST 31 (5-40) units/L ALT 18 (7-56) units/L Alkaline Phosphatase 66 (35-129) units/L Total Protein 6.2 L (6.3-8.2) g/dL Albumin 3.1 L (3.9-5) g/dL 10/16/21 Range/Units 09:05 Sodium 132 L (137-145) mmol/L Potassium 3.7 (3.6-5.0) mmol/L Chloride 93.2 L (98-107) mmol/L Carbon Dioxide 25 (22-30) mmol/L BUN 28 H (7-17) mg/dL Creatinine 0.6 (0.6-1.2) mg/dL Glucose 225 H (65-100) mg/dL Calcium 8.3 L (8.4-10.2) mg/dL Direct Bilirubin (0-0.2) mg/dL Indirect Bilirubin mg/dL AST 26 (5-40) units/L ALT 16 (7-56) units/L Alkaline Phosphatase 54 (35-129) units/L Total Protein 5.7 L (6.3-8.2) g/dL Albumin 2.4 L (3.9-5) g/dL EKG interpretations Pacemaker: ventricular pacing w/capt Assessment and Plan - Patient Problems (1) Respiratory failure Current Visit: Yes Status: Acute Plan to address problem: Patient presented with respiratory failure, currently sedated, on the vent. There is no clinical or x-ray evidence of fluid overload or heart failure, there is some mild to moderate cardiomegaly on the chest x-ray, and echocardiogram is pending for left ventricular function assessment. The patient's chest x-ray does show a consolidation in the left lower lobe, consistent with acute pneumonia. I do not see a COVID-19 test assessment in the records. (2) Cardiac pacemaker Current Visit: Yes Status: Acute Plan to address problem: Patient has a dual-chamber pacemaker in situ, we will request old records i ncluding outpatient records to obtain details of her pacemaker and other previous cardiac work-up and interventions.
--- NOTE | 2021-10-16 13:46 | Consultation ---
History of Present Illness Consult date: 10/16/21 Requesting physician: DIPIKA GRIDER Reason for consult: other (AHRF; PUI COVID-19) History of present illness: PULMONARY/CCM CONSULT NOTE (Full dictation # [id number]) Please see dictated notes for full details Past History Past Medical History: hypertension Past Surgical History: Other (Cardiac pacemaker) Medications and Allergies Allergies Allergy/AdvReac Type Severity Reaction Status Date / Time lisinopril Allergy Unknown Verified 10/16/21 12:24 Home Medications Medication Instructions Recorded Confirmed Last Taken Type Metformin HCl 1,000 mg PO BID 10/15/21 10/15/21 Unknown History Triamterene-Hctz 37.5-25 mg Cp 1 tab PO DAILY 10/15/21 10/15/21 Unknown History XARELTO (see DOAC order set to 2.5 mg PO BID 10/15/21 10/15/21 Unknown History order) levETIRAcetam [Keppra TAB] 1 tab PO BID 10/15/21 10/15/21 Unknown History Active Meds: Active Medications Acetaminophen (Acetaminophen 325 Mg Tab) 650 mg PO Q4H PRN PRN Reason: Pain MILD(1-3)/Fever >100.5/KEYS Lipase/Protease/Amylase (Lipase 10,500/Protease 25,000/Amylase 43,750 (Units) Dr Schuler) 1 each FEEDTUBE PRN PRN PRN Reason: For Clogged Feeding Tube Famotidine (Famotidine 20 Mg/2 Ml Inj) 20 mg IV BID MUNA Last Admin: 10/16/21 11:36 Dose: 20 mg Propofol (Diprivan 10 Mg/Ml) 1,000 mg in 100 mls @ 1.633 mls/hr IV TITR MUNA; Protocol Last Titration: 10/16/21 01:00 Dose: 5 mcg/kg/min, 1.633 mls/hr NORepinephrine/NS 8 MG-250 ML (Norepinephrine/Ns 8 Mg-250 Ml (Double Conc)) 8 mg in 250 mls @ 3.75 mls/hr IV TITRATE MUNA; Protocol Last Titration: 10/16/21 12:22 Dose: 1 mcg/min, 1.875 mls/hr Vancomycin HCl 750 mg/ Sodium (Chloride) 265 mls @ 166.667 mls/hr IV Q24H MUNA Cefepime HCl (Cefepime/Ns 2 Gm/100 Ml) 2 gm in 100 mls @ 200 mls/hr IV Q12H [facility]; Protocol Insulin Human Lispro (Insulin Lispro 100 Unit/Ml) 0 unit SUB-Q Q6HR [facility]; Protocol Last Admin: 10/16/21 11:45 Dose: 4 unit Levetiracetam (Levetiracetam 500 Mg/5 Ml Oral Liqd) 500 mg PO BID [facility] Last Admin: 10/16/21 11:36 Dose: 500 mg Metoclopramide HCl (Metoclopramide 10 Mg/2 Ml Inj) 10 mg IV Q6H PRN PRN Reason: Nausea And Vomiting Morphine Sulfate (Morphine 2 Mg/1 Ml Inj) 2 mg IV Q4H PRN PRN Reason: Pain, Moderate (4-6) Ondansetron HCl (Ondansetron 4 Mg/2 Ml Inj) 4 mg IV Q3H PRN PRN Reason: Nausea And Vomiting Rivaroxaban (Rivaroxaban 10 Mg Tab) 2.5 mg PO BID [facility] Last Admin: 10/16/21 11:45 Dose: 2.5 mg Simple Syrup (Simple Syrup 15 Ml) 15 ml FEEDTUBE PRN PRN PRN Reason: Hypoglycemia Simple Syrup (Simple Syrup 15 Ml) 30 ml FEEDTUBE PRN PRN PRN Reason: Hypoglycemia Sodium Bicarbonate (Sodium Bicarbonate 325 Mg Tab) 325 mg FEEDTUBE PRN PRN PRN Reason: For Clogged Feeding Tube Sodium Chloride (Sodium Chloride 0.9% 10 Ml Flush Syringe) 10 ml IV BID [facility] Last Admin: 10/16/21 01:22 Dose: 10 ml Sodium Chloride (Sodium Chloride 0.9% 10 Ml Flush Syringe) 10 ml IV PRN PRN PRN Reason: LINE FLUSH Physical Examination Vital signs: Vital Signs Pulse Pulse Ox 80 93 10/15/21 15:30 10/15/21 15:30 Results - Laboratory Findings CBC and BMP: 10/16/21 09:05 10/16/21 09:05 ABG ABG pH 7.490 (7.320-7.450) H 10/16/21 04:50 POC ABG pCO2 35.5 mmHg (32.0-48.0) 10/16/21 04:50 ABG pCO2 57.0 mm Hg 10/15/21 16:42 POC ABG pO2 101.9 mmHg (83-108) 10/16/21 04:50 ABG pO2 75.4 mm Hg (80.0-90.0) L 10/15/21 16:42 POC ABG HCO3 26.4 10/16/21 04:50 ABG O2 Saturation 98.0 (0-100) 10/16/21 04:50 PT/INR, D-dimer PT 14.6 Sec. (12.2-14.9) 10/15/21 16:15 INR 1.03 (0.87-1.13) 10/15/21 16:15 D-Dimer 7433.97 ng/mlDDU (0-234) H 10/15/21 16:15 Abnormal lab findings: Abnormal Labs 10/15/21 10/15/21 10/15/21 16:15 16:15 16:15 WBC 17.2 H RBC Hgb 9.0 L Hct 29.7 L MCV 78 L MCH 24 L RDW 17.5 H Seg Neuts % (Manual) 88.0 H Lymphocytes % (Manual) 3.0 L Seg Neutrophils # Man 15.1 H Lymphocytes # (Manual) 0.5 L APTT 38.0 H D-Dimer 7433.97 H ABG pH ABG pO2 ABG HCO3 ABG O2 Saturation ABG Base Excess ABG Hemoglobin ABG Sodium ABG Chloride ABG Glucose Oxyhemoglobin Sodium Chloride BUN Glucose POC Glucose Lactic Acid 5.60 H* Calcium Magnesium Ferritin Direct Bilirubin Lactate Dehydrogenase Troponin T C-Reactive Protein NT-Pro-B Natriuret Pep Total Protein Albumin LDL Cholesterol Direct HDL Cholesterol Arterial Blood Glucose Salicylates Acetaminophen 10/15/21 10/15/21 10/15/21 16:15 16:15 16:15 WBC RBC Hgb Hct MCV MCH RDW Seg Neuts % (Manual) Lymphocytes % (Manual) Seg Neutrophils # Man Lymphocytes # (Manual) APTT D-Dimer ABG pH ABG pO2 ABG HCO3 ABG O2 Saturation ABG Base Excess ABG Hemoglobin ABG Sodium ABG Chloride ABG Glucose Oxyhemoglobin Sodium 134 L Chloride 89.6 L BUN 27 H Glucose 234 H POC Glucose Lactic Acid Calcium Magnesium 1.40 L Ferritin Direct Bilirubin 0.3 H Lactate Dehydrogenase Troponin T C-Reactive Protein NT-Pro-B Natriuret Pep 6606 H Total Protein 6.2 L Albumin 3.1 L LDL Cholesterol Direct HDL Cholesterol Arterial Blood Glucose Salicylates < 0.3 L Acetaminophen 5.0 L 10/15/21 10/15/21 10/15/21 16:15 16:15 16:15 WBC RBC Hgb Hct MCV MCH RDW Seg Neuts % (Manual) Lymphocytes % (Manual) Seg Neutrophils # Man Lymphocytes # (Manual) APTT D-Dimer ABG pH ABG pO2 ABG HCO3 ABG O2 Saturation ABG Base Excess ABG Hemoglobin ABG Sodium ABG Chloride ABG Glucose Oxyhemoglobin Sodium Chloride BUN Glucose 221 H POC Glucose Lactic Acid Calcium Magnesium Ferritin 418.8 H 421.6 H Direct Bilirubin Lactate Dehydrogenase 233 H Troponin T C-Reactive Protein 25.90 H NT-Pro-B Natriuret Pep Total Protein Albumin LDL Cholesterol Direct HDL Cholesterol Arterial Blood Glucose Salicylates Acetaminophen 10/15/21 10/15/21 10/15/21 16:42 18:00 18:00 WBC RBC Hgb Hct MCV MCH RDW Seg Neuts % (Manual) Lymphocytes % (Manual) Seg Neutrophils # Man Lymphocytes # (Manual) APTT D-Dimer ABG pH 7.348 L ABG pO2 75.4 L ABG HCO3 30.6 H ABG O2 Saturation 94.3 L ABG Base Excess 3.9 H ABG Hemoglobin 10.9 L ABG Sodium ABG Chloride ABG Glucose Oxyhemoglobin 93.1 L Sodium Chloride BUN Glucose POC Glucose Lactic Acid 3.10 H* Calcium Magnesium Ferritin Direct Bilirubin Lactate Dehydrogenase Troponin T 0.036 H C-Reactive Protein NT-Pro-B Natriuret Pep Total Protein Albumin LDL Cholesterol Direct 46 L HDL Cholesterol 25 L Arterial Blood Glucose Salicylates Acetaminophen 10/15/21 10/16/21 10/16/21 20:58 01:55 04:50 WBC RBC Hgb Hct MCV MCH RDW Seg Neuts % (Manual) Lymphocytes % (Manual) Seg Neutrophils # Man Lymphocytes # (Manual) APTT D-Dimer ABG pH 7.490 H ABG pO2 ABG HCO3 ABG O2 Saturation ABG Base Excess ABG Hemoglobin 9.7 L ABG Sodium 128.9 L ABG Chloride 96.0 L ABG Glucose 235 H Oxyhemoglobin Sodium 135 L Chloride 94.9 L BUN 28 H Glucose 226 H POC Glucose Lactic Acid Calcium Magnesium Ferritin Direct Bilirubin Lactate Dehydrogenase Troponin T 0.038 H C-Reactive Protein NT-Pro-B Natriuret Pep Total Protein Albumin LDL Cholesterol Direct HDL Cholesterol Arterial Blood Glucose 235 H Salicylates Acetaminophen 10/16/21 10/16/21 10/16/21 09:05 09:05 09:05 WBC 14.9 H RBC 3.20 L Hgb 7.6 L Hct 24.8 L MCV 77 L MCH 24 L RDW 17.5 H Seg Neuts % (Manual) Lymphocytes % (Manual) Seg Neutrophils # Man Lymphocytes # (Manual) APTT D-Dimer ABG pH ABG pO2 ABG HCO3 ABG O2 Saturation ABG Base Excess ABG Hemoglobin ABG Sodium ABG Chloride ABG Glucose Oxyhemoglobin Sodium 132 L Chloride 93.2 L BUN 28 H Glucose 225 H POC Glucose Lactic Acid 2.30 H* Calcium 8.3 L Magnesium 1.30 L Ferritin Direct Bilirubin Lactate Dehydrogenase Troponin T C-Reactive Protein NT-Pro-B Natriuret Pep Total Protein 5.7 L Albumin 2.4 L LDL Cholesterol Direct HDL Cholesterol Arterial Blood Glucose Salicylates Acetaminophen 10/16/21 12:24 WBC RBC Hgb Hct MCV MCH RDW Seg Neuts % (Manual) Lymphocytes % (Manual) Seg Neutrophils # Man Lymphocytes # (Manual) APTT D-Dimer ABG pH ABG pO2 ABG HCO3 ABG O2 Saturation ABG Base Excess ABG Hemoglobin ABG Sodium ABG Chloride ABG Glucose Oxyhemoglobin Sodium Chloride BUN Glucose POC Glucose 187 H Lactic Acid Calcium Magnesium Ferritin Direct Bilirubin Lactate Dehydrogenase Troponin T C-Reactive Protein NT-Pro-B Natriuret Pep Total Protein Albumin LDL Cholesterol Direct HDL Cholesterol Arterial Blood Glucose Salicylates Acetaminophen
[2021-10-16] MEDS ORDERED: SODIUM CHLORIDE 0.9% 1000 ML IV SOLN IV PRN (13:57)
[2021-10-16] MEDS ORDERED: MAGNESIUM SULFATE 2 GM/50 ML BAG IV ONE (14:01)
[2021-10-16] MEDS: SODIUM CHLORIDE 0.9% 1000 ML 1,000 ML IV SCH (15:18)
--- NOTE | 2021-10-16 18:32 | Progress Note ---
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 A/P: Neuro: Sedated, h/o CVA, Alzheimer's, nonverbal at baseline, seizure disorder -Avoid delirium -Reorientation as needed -Continue home Keppra -Sedated with propofol -RASS goal 0 to -1 -Aspiration/seizure precautions -As needed analgesia -Maintain sleep-wake cycle Cardiac: Hypotension, h/o HTN, CHF, pacemaker placement -Blood pressure monitoring per protocol -Vasopressor support with Levophed -MAP goal greater than 65 -Cardiology consulted, appreciate recommendations -Echocardiogram pending -Hold home antihypertensive regimen at this time -Admit proBNP 6606 -IV Lasix Respiratory: Acute hypoxic respiratory failure -CCM consulted, appreciate recommendations -Intubated on 10/15 with 7 oett at 23 at the lips -A.m. vent settings: Assist-control rate 22, tidal volume 400, PEEP 6, FiO2 70% -CCM increased PEEP -See RT notes for titration -A.m. ABG and CXR noted -VAP bundle -SPO2 monitoring GI: Protein calorie malnutrition -24 hours + 9 ml -PEG tube in place -PPI -NTR consult for tube feedings -[place]: Senokot : Hyponatremia, hypomag, hypophos -Strict intake and output -Renally dose medications -Avoid nephrotoxic medications -replete electrolytes -Daily weights -Trend BMP ID: Severe Sepsis with Shock (POA), COVID 19 PNA, Lactic acidosis, possible aspiration PNA -CXR showed B PNA -CT chest showed B consolidation (left greater than right) -Infectious disease consulted, appreciate recommendations -Antibiotic therapy with cefepime and vancomycin -Procal and CRP pending -Droplet/contact precautions -Trend COVID-19 inflammatory markers -Vitamin D/vitamin C/zinc -Dexamethasone 6 mg daily (10/16-10/26) -Remdisivir (10/16-10/21) -Monitor WBC and temperature curve Endo: h/o DM -Avoid hypoglycemia -SSI -Accu-Cheks q. 6 Heme: Leukocytosis, elevated d-dimer -CTA chest without PE -Restarted home Xarelto -r/o DVT -Trend CBC -SCDs to BLE while in bed -Transfuse hemoglobin less than 7 The high probability of a clinically significant, sudden or life threatening deterioration of the [multi] system(s) required my full and direct attention, intervention and personal management. The aggregate critical care time was [60] minutes. This time is in addition to time spent performing reported procedures but includes the following: [x] Data Review and interpretation [x] Patient assessment and monitoring of vital signs [x] Documentation [x] Medication orders and management Disposition Plan: icu Total Time Spent with Patient (Minutes): 60 History Interval history: This is a 86-year-old female with HTN, CVA (2019), DM, seizure disorder, right lower leg DVT (on Xarelto), nonverbal at baseline, Alzheimer, CHF with pacemaker in situ who presented to the emergency department via EMS for severe respiratory distress with hypoxia. Upon arrival EMS patient was found to be in in respiratory distress and with altered mental status with SPO2 of 70% on room air. She was placed on BiPAP and transferred to the emergency department. In the emergency department patient was intubated for airway protection and increasing oxygen demands. Work-up in the emergency department included a CXR which showed possible aspiration pneumonia, leukocytosis, elevated proBNP, elevated CRP, elevated dddimer, lactic acidosis, hypomagnesemia, hyponatremia and elevated proBNP. Patient was admitted to the hospitalist service with CHF e xacerbation, acute hypoxic respiratory failure, possible aspiration pneumonia and is a COVID-19 PUI with consults to [facility] cardiology and infectious disease. 10/16: Patient COVID-19 PCR positive, given IVF, CVP measuring initiated, weaning levophed as tolerated. Hospitalist Physical - Constitutional Vitals: Temp Pulse Resp BP Pulse Ox 98.1 F 80 22 96/63 100 10/16/21 12:00 10/16/21 15:45 10/16/21 15:45 10/16/21 15:45 10/16/21 15:30 General appearance: Present: other (Patient is sedated, on the ventilator) - EENT Eyes: Present: PERRL, EOM intact ENT: poor dentition - Neck Neck: Present: normal ROM - Respiratory Respiratory effort: normal Respiratory: bilateral: diminished - Cardiovascular Rhythm: regular Heart Sounds: Present: S1 & S2. Absent: systolic murmur, diastolic murmur - Extremities Extremities: no ischemia, pulses intact, pulses symmetrical, No edema, normal temperature, normal color Peripheral Pulses: within normal limits - Abdominal General gastrointestinal: soft, non-tender, non-distended, normal bowel sounds - Integumentary Integumentary: Present: warm, dry - Psychiatric Psychiatric: other (sedated) - Neurologic Neurologic: other (sedated) - Allied Health Allied health notes reviewed: nursing, RT, social work HEART Score - HEART Score Age: > 65 Risk factors: 1-2 risk factors Troponin: Troponin T 0.038 ng/mL (0.00-0.029) H 10/15/21 20:58 Troponin: 1-3x normal limit - Critical Actions Critical Actions: 4-6 pts:12-16.6% risk of adverse cardiac event. Should be admitted Results - Labs CBC & Chem 7: 10/16/21 09:05 10/16/21 09:05 Labs: Laboratory Last Values WBC 14.9 K/mm3 (4.5-11.0) H 10/16/21 09:05 RBC 3.20 M/mm3 (3.65-5.03) L 10/16/21 09:05 Hgb 7.6 gm/dl (10.1-14.3) L 10/16/21 09:05 Hct 24.8 % (30.3-42.9) L 10/16/21 09:05 MCV 77 fl (79-97) L 10/16/21 09:05 MCH 24 pg (28-32) L 10/16/21 09:05 MCHC 31 % (30-34) 10/16/21 09:05 RDW 17.5 % (13.2-15.2) H 10/16/21 09:05 Plt Count 257 K/mm3 (140-440) 10/16/21 09:05 Add Manual Diff Complete 10/15/21 16:15 Total Counted 100 10/15/21 16:15 Seg Neutrophils % Chart Snatcher 10/15/21 16:15 Seg Neuts % (Manual) 88.0 % (40.0-70.0) H 10/15/21 16:15 Band Neutrophils % 7.0 % 10/15/21 16:15 Lymphocytes % (Manual) 3.0 % (13.4-35.0) L 10/15/21 16:15 Reactive Lymphs % (Man) 0 % 10/15/21 16:15 Monocytes % (Manual) 2.0 % (0.0-7.3) 10/15/21 16:15 Eosinophils % (Manual) 0 % (0.0-4.3) 10/15/21 16:15 Basophils % (Manual) 0 % (0.0-1.8) 10/15/21 16:15 Metamyelocytes % 0 % 10/15/21 16:15 Myelocytes % 0 % 10/15/21 16:15 Promyelocytes % 0 % 10/15/21 16:15 Blast Cells % 0 % 10/15/21 16:15 Nucleated RBC % Not Reportable 10/15/21 16:15 Seg Neutrophils # Man 15.1 K/mm3 (1.8-7.7) H 10/15/21 16:15 Band Neutrophils # 1.2 K/mm3 10/15/21 16:15 Lymphocytes # (Manual) 0.5 K/mm3 (1.2-5.4) L 10/15/21 16:15 Abs React Lymphs (Man) 0.0 K/mm3 10/15/21 16:15 Monocytes # (Manual) 0.3 K/mm3 (0.0-0.8) 10/15/21 16:15 Eosinophils # (Manual) 0.0 K/mm3 (0.0-0.4) 10/15/21 16:15 Basophils # (Manual) 0.0 K/mm3 (0.0-0.1) 10/15/21 16:15 Metamyelocytes # 0.0 K/mm3 10/15/21 16:15 Myelocytes # 0.0 K/mm3 10/15/21 16:15 Promyelocytes # 0.0 K/mm3 10/15/21 16:15 Blast Cells # 0.0 K/mm3 10/15/21 16:15 WBC Morphology Not Reportable 10/15/21 16:15 Hypersegmented Neuts Not Reportable 10/15/21 16:15 Hyposegmented Neuts Not Reportable 10/15/21 16:15 Hypogranular Neuts Not Reportable 10/15/21 16:15 Smudge Cells Not Reportable 10/15/21 16:15 Toxic Granulation Not Reportable 10/15/21 16:15 Toxic Vacuolation Not Reportable 10/15/21 16:15 Dohle Bodies Not Reportable 10/15/21 16:15 Pelger-Huet Anomaly Not Reportable 10/15/21 16:15 Girma Rods Not Reportable 10/15/21 16:15 Platelet Estimate Consistent w auto 10/15/21 16:15 Clumped Platelets Not Reportable 10/15/21 16:15 Plt Clumps, EDTA Not Reportable 10/15/21 16:15 Large Platelets Not Reportable 10/15/21 16:15 Giant Platelets Not Reportable 10/15/21 16:15 Platelet Satelliting Not Reportable 10/15/21 16:15 Plt Morphology Comment Not Reportable 10/15/21 16:15 RBC Morphology Not Reportable 10/15/21 16:15 Dimorphic RBCs Not Reportable 10/15/21 16:15 Polychromasia Not Reportable 10/15/21 16:15 Hypochromasia 1+ 10/15/21 16:15 Poikilocytosis Not Reportable 10/15/21 16:15 Anisocytosis Not Reportable 10/15/21 16:15 Microcytosis Not Reportable 10/15/21 16:15 Macrocytosis Not Reportable 10/15/21 16:15 Spherocytes Not Reportable 10/15/21 16:15 Pappenheimer Bodies Not Reportable 10/15/21 16:15 Sickle Cells Not Reportable 10/15/21 16:15 Target Cells Not Reportable 10/15/21 16:15 Tear Drop Cells Not Reportable 10/15/21 16:15 Ovalocytes Not Reportable 10/15/21 16:15 Helmet Cells Not Reportable 10/15/21 16:15 [place] Bodies Not Reportable 10/15/21 16:15 Falun Rings Not Reportable 10/15/21 16:15 Lucius Cells Not Reportable 10/15/21 16:15 Bite Cells Not Reportable 10/15/21 16:15 Crenated Cell Not Reportable 10/15/21 16:15 Elliptocytes Not Reportable 10/15/21 16:15 Acanthocytes (Spur) Not Reportable 10/15/21 16:15 Rouleaux Not Reportable 10/15/21 16:15 Hemoglobin C Crystals Not Reportable 10/15/21 16:15 Schistocytes Not Reportable 10/15/21 16:15 Malaria parasites Not Reportable 10/15/21 16:15 Brodie Bodies Not Reportable 10/15/21 16:15 Hem Pathologist Commnt No 10/15/21 16:15 PT 14.6 Sec. (12.2-14.9) 10/15/21 16:15 INR 1.03 (0.87-1.13) 10/15/21 16:15 APTT 38.0 Sec. (24.2-36.6) H 10/15/21 16:15 D-Dimer 7433.97 ng/mlDDU (0-234) H 10/15/21 16:15 ABG pH 7.490 (7.320-7.450) H 10/16/21 04:50 POC ABG pCO2 35.5 mmHg (32.0-48.0) 10/16/21 04:50 ABG pCO2 57.0 mm Hg 10/15/21 16:42 POC ABG pO2 101.9 mmHg (83-108) 10/16/21 04:50 ABG pO2 75.4 mm Hg (80.0-90.0) L 10/15/21 16:42 POC ABG HCO3 26.4 10/16/21 04:50 ABG HCO3 30.6 mmol/L (20.0-26.0) H 10/15/21 16:42 ABG O2 Saturation 98.0 (0-100) 10/16/21 04:50 ABG O2 Content 14.3 (0.0-44) 10/15/21 16:42 POC ABG Base Excess 3.1 10/16/21 04:50 ABG Base Excess 3.9 mmol/L (-2.0-3.0) H 10/15/21 16:42 ABG Hemoglobin 9.7 (12.0-17.5) L 10/16/21 04:50 ABG Oxyhemoglobin 97.2 (94-98) 10/16/21 04:50 ABG Carboxyhemoglobin 0.8 % (0.0-5.0) 10/15/21 16:42 ABG Methemoglobin 0.3 (0.0-1.5) 10/16/21 04:50 ABG Sodium 128.9 mmol/L (136.0-145.0) L 10/16/21 04:50 ABG Potassium 3.8 mmol/L (3.40-4.50) 10/16/21 04:50 ABG Chloride 96.0 mmol/L (98-107) L 10/16/21 04:50 ABG Glucose 235 mg/dL (65-95) H 10/16/21 04:50 Oxyhemoglobin 93.1 % (95.0-99.0) L 10/15/21 16:42 Carboxyhemoglobin 0.5 (0.5-1.5) 10/16/21 04:50 FiO2 100 % 10/15/21 16:42 FiO2 % 75.0 10/16/21 04:50 Sodium 132 mmol/L (137-145) L 10/16/21 09:05 Potassium 3.7 mmol/L (3.6-5.0) 10/16/21 09:05 Chloride 93.2 mmol/L (98-107) L 10/16/21 09:05 Carbon Dioxide 25 mmol/L (22-30) 10/16/21 09:05 Anion Gap 18 mmol/L 10/16/21 09:05 BUN 28 mg/dL (7-17) H 10/16/21 09:05 Creatinine 0.6 mg/dL (0.6-1.2) 10/16/21 09:05 Estimated GFR > 60 ml/min 10/16/21 09:05 BUN/Creatinine Ratio 47 % 10/16/21 09:05 Glucose 225 mg/dL (65-100) H 10/16/21 09:05 POC Glucose 128 mg/dL (70-105) H 10/16/21 17:19 Lactic Acid 2.30 mmol/L (0.7-2.0) H* 10/16/21 09:05 Calcium 8.3 mg/dL (8.4-10.2) L 10/16/21 09:05 Phosphorus 2.10 mg/dL (2.5-4.5) L 10/16/21 09:05 Magnesium 1.30 mg/dL (1.7-2.3) L 10/16/21 09:05 Ferritin 418.8 ng/mL (10.0-200.0) H 10/15/21 16:15 Ferritin 421.6 ng/mL (10.0-200.0) H 10/15/21 16:15 Total Bilirubin 0.60 mg/dL (0.1-1.2) 10/16/21 09:05 Direct Bilirubin 0.3 mg/dL (0-0.2) H 10/15/21 16:15 Indirect Bilirubin 0.2 mg/dL 10/15/21 16:15 AST 26 units/L (5-40) 10/16/21 09:05 ALT 16 units/L (7-56) 10/16/21 09:05 Alkaline Phosphatase 54 units/L (35-129) 10/16/21 09:05 Ammonia 38.0 umol/L (25-60) 10/15/21 16:15 Lactate Dehydrogenase 233 units/L (91-180) H 10/15/21 16:15 Troponin T 0.038 ng/mL (0.00-0.029) H 10/15/21 20:58 C-Reactive Protein 25.90 mg/dL (0.00-1.30) H 10/15/21 16:15 NT-Pro-B Natriuret Pep 6606 pg/mL (0-900) H 10/15/21 16:15 Total Protein 5.7 g/dL (6.3-8.2) L 10/16/21 09:05 Albumin 2.4 g/dL (3.9-5) L 10/16/21 09:05 Albumin/Globulin Ratio 0.7 % 10/16/21 09:05 Triglycerides 122 mg/dL (2-149) 10/15/21 18:00 Cholesterol 99 mg/dL (50-199) 10/15/21 18:00 LDL Cholesterol Direct 46 mg/dL (50-130) L 10/15/21 18:00 HDL Cholesterol 25 mg/dL (40-59) L 10/15/21 18:00 Cholesterol/HDL Ratio 3.96 % 10/15/21 18:00 Lipase 19 units/L (13-60) 10/15/21 16:15 Procalcitonin 7.46 ng/mL (<0.15) 10/15/21 16:15 Arterial Blood Glucose 235 mg/dL (65-95) H 10/16/21 04:50 Urine Color Yellow (Yellow) 10/15/21 Unknown Urine Turbidity Cloudy (Clear) 10/15/21 Unknown Urine pH 5.0 (5.0-7.0) 10/15/21 Unknown Ur Specific [place] 1.016 (1.003-1.030) 10/15/21 Unknown Urine Protein >500 mg/dL (Negative) 10/15/21 Unknown Urine Glucose (UA) 50 mg/dL (Negative) 10/15/21 Unknown Urine Ketones Neg mg/dL (Negative) 10/15/21 Unknown Urine Blood Neg (Negative) 10/15/21 Unknown Urine Nitrite Neg (Negative) 10/15/21 Unknown Urine Bilirubin Neg (Negative) 10/15/21 Unknown Urine Urobilinogen < 2.0 mg/dL (<2.0) 10/15/21 Unknown Ur Leukocyte Esterase Neg (Negative) 10/15/21 Unknown Urine WBC (Auto) 5.0 /HPF (0.0-6.0) 10/15/21 Unknown Urine RBC (Auto) 2.0 /HPF (0.0-6.0) 10/15/21 Unknown U Epithel Cells (Auto) 2.0 /HPF (0-13.0) 10/15/21 Unknown Urine Bacteria (Auto) 1+ /HPF (Negative) 10/15/21 Unknown Calcium Oxalate Crystal 1+ 10/15/21 Unknown Amorphous Crystals 3+ 10/15/21 Unknown Urine Mucus Few /HPF 10/15/21 Unknown Urine Yeast (Budding) 1+ /HPF 10/15/21 Unknown Salicylates < 0.3 mg/dL (2.8-20.0) L 10/15/21 16:15 Urine Opiates Screen Negative 10/15/21 Unknown Urine Methadone Screen Negative 10/15/21 Unknown Acetaminophen 5.0 ug/mL (10.0-30.0) L 10/15/21 16:15 Ur Barbiturates Screen Negative 10/15/21 Unknown Ur Phencyclidine Scrn Negative 10/15/21 Unknown Ur Amphetamines Screen Negative 10/15/21 Unknown U Benzodiazepines Scrn Negative 10/15/21 Unknown Urine Cocaine Screen Negative 10/15/21 Unknown U Marijuana (THC) Screen Negative 10/15/21 Unknown Drugs of Abuse Note Disclamer 10/15/21 Unknown Coronavirus (PCR) Positive (Negative) A 10/16/21 09:36 Microbiology: Microbiology 10/15/21 16:35 Tracheal Aspirate Sputum Culture - Preliminary 10/15/21 16:15 Peripheral/Venous Blood Culture - Preliminary Culture in Progress 10/15/21 16:15 Peripheral/Venous Blood Culture - Preliminary Culture in Progress Magallanes/IV: Voiding Method Indwelling Catheter Active Medications - Current Medications Current Medications: Generic Name Dose Route Start Last Admin Trade Name Freq PRN Reason Stop Dose Admin Acetaminophen 650 mg 10/16/21 00:57 Acetaminophen 325 Mg Tab PO Q4H PRN Pain MILD(1-3)/Fever >100.5/KEYS Lipase/Protease/Amylase 1 each 10/16/21 01:07 Lipase 10,500/Protease 25,000/Amylase 43,750 (Units) Dr Schuler FEEDTUBE PRN PRN For Clogged Feeding Tube Ascorbic Acid 500 mg 10/17/21 10:00 Ascorbic Acid 500 Mg Tab PO QDAY [facility] Cholecalciferol 5,000 unit 10/17/21 10:00 Cholecalciferol (Vit D3) 5,000 Unit Tab PO DAILY MUNA Famotidine 20 mg 10/16/21 10:00 10/16/21 11:36 Famotidine 20 Mg/2 Ml Inj IV 20 mg BID MUNA Administration Propofol 1,000 mg in 100 mls @ 1.633 mls/hr 10/15/21 16:00 10/16/21 18:03 Diprivan 10 Mg/Ml IV 5 mcg/kg/min TITR MUNA 1.633 mls/hr Administration Protocol 5 MCG/KG/MIN NORepinephrine/NS 8 MG-250 ML 8 mg in 250 mls @ 3.75 mls/hr 10/15/21 18:00 10/16/21 15:18 Norepinephrine/Ns 8 Mg-250 Ml (Double Conc) IV 2 mcg/min TITRATE MUNA 3.75 mls/hr Titration Protocol 2 MCG/MIN Vancomycin HCl 750 mg/ Sodium 265 mls @ 166.667 mls/hr 10/16/21 18:00 Chloride IV Q24H MUNA Cefepime HCl 2 gm in 100 mls @ 200 mls/hr 10/16/21 13:00 10/16/21 13:18 Cefepime/Ns 2 Gm/100 Ml IV 200 mls/hr Q12H MUNA Administration Protocol Sodium Chloride 1,000 mls @ 75 mls/hr 10/16/21 14:15 10/16/21 15:18 Nacl 0.9% 1000 Ml IV 10/18/21 03:34 75 mls/hr DIRECT MUNA Administration Insulin Human Lispro 0 unit 10/16/21 09:00 10/16/21 15:52 Insulin Lispro 100 Unit/Ml SUB-Q Not Given Q6HR [facility] Protocol Levetiracetam 500 mg 10/16/21 11:00 10/16/21 11:36 Levetiracetam 500 Mg/5 Ml Oral Liqd PO 500 mg BID MUNA Administration Metoclopramide HCl 10 mg 10/16/21 01:02 Metoclopramide 10 Mg/2 Ml Inj IV Q6H PRN Nausea And Vomiting Morphine Sulfate 2 mg 10/16/21 01:02 Morphine 2 Mg/1 Ml Inj IV Q4H PRN Pain, Moderate (4-6) Ondansetron HCl 4 mg 10/16/21 00:57 Ondansetron 4 Mg/2 Ml Inj IV Q3H PRN Nausea And Vomiting Rivaroxaban 2.5 mg 10/16/21 01:00 10/16/21 11:45 Rivaroxaban 10 Mg Tab PO 2.5 mg BID MUNA Administration Senna/Docusate Sodium 1 tab 10/16/21 22:00 Sennosides/Docusate Sodium 8.6/50 Mg Tab FEEDTUBE QHS MUNA Simple Syrup 15 ml 10/16/21 01:07 Simple Syrup 15 Ml FEEDTUBE PRN PRN Hypoglycemia Simple Syrup 30 ml 10/16/21 01:07 Simple Syrup 15 Ml FEEDTUBE PRN PRN Hypoglycemia Sodium Bicarbonate 325 mg 10/16/21 01:07 Sodium Bicarbonate 325 Mg Tab FEEDTUBE PRN PRN For Clogged Feeding Tube Sodium Chloride 10 ml 10/16/21 01:00 10/16/21 10:00 Sodium Chloride 0.9% 10 Ml Flush Syringe IV 10 ml BID MUNA Administration Sodium Chloride 10 ml 10/16/21 00:57 Sodium Chloride 0.9% 10 Ml Flush Syringe IV PRN PRN LINE FLUSH Sodium Chloride 5 ml 10/16/21 13:57 Sodium Chloride 0.9% 1000 Ml Iv Soln IV PRN PRN CVP Zinc Sulfate 220 mg 10/16/21 22:00 Zinc Sulfate 220 Mg Cap PO BID [facility] Nutrition/Malnutrition Assess - Dietary Evaluation Nutrition/Malnutrition Findings: Nutrition Notes Start: 10/16/21 10:33 Freq: Status: Active Protocol: Document 10/16/21 10:33 ANTIONE (Rec: 10/16/21 11:06 ANTIONE [id number]) Nutrition Notes Need for Assessment generated from: MD Order,MST Initial or Follow up Assessment Current Diagnosis Diabetes,Sepsis,Hypertension, Heart Failure,Respiratory Failure,Stroke Other Pertinent Diagnosis Aspiration bilateral pneumonia , COVID-19 pui, Chronic anemia /malnutrition.. Current Diet NPO. TF-Promote @ 41 ml/hr ( from L 10/16). Labs/Tests 10/16: Na 132, Cl 93.2, BUN 28 , Glu 225, Ca 8.3, Mg 1.3. Pertinent Medications 10/16: Propofol 1000 mg in 100 ml @ 1.633 ml/hr (43 Kcal), others nutritionally unremarkable. Height 5 ft 5 in Weight 55 kg [place] Body Weight (kg) 56.81 BMI 20.1 Intake Prior to Admission Good Weight change and time frame Pt is unsure if loss body weight [employer]. Weight Status Appropriate Subjective/Other Information RD consult for malnutrition risk assessment and write/ manage TF. Pt is on mechanical ventilation. Pt is COVID-19 pui. Percent of energy/protein needs met: Pt currently on NPO. Prescribed Promote @ 41 ml/hr provides for energy/protein needs (985 Kcal/62 g) during LOS, plus 43 Kcal from propofol. Burn Absent Trauma Absent GI Symptoms None Food Allergy No Skin Integrity/Comment Clear, warm, dry. Current % PO Other Minimum of two criteria No #1 Nutrition Diagnosis Inadequate oral intake Etiology Pt on mechanical ventilation. As Evidenced by Signs and Symptoms Pt is currently on NPO. Is patient on ventilator? Yes Is Patient Ambulatory and/or Out of Bed No REE-([facility]-confined to bed) 1190.748 Kcal/Kg value to use for calculation 18 Approximate Energy Requirements Using 990 kcal/Kg Calculation Used for Recommendations Kcal/kg Additional Notes Protein: 1.2-2 g/Kg; 66-110 g/ day. Fluids: 1 ml/Kcal, or as per MD. Nutrition Intervention Nutrition Support: Start Promote @ 41 ml/hr. Flush: 30 ml water Q 4 hr, or as per MD. Kcal 985 Protein (gm) 62 Carbohydrates (gm) 128 Fat (gm) 26 Fluid (mL) 826 Fiber (gm) 0 % RDI: 100% Kcal; 93% AA. Goal #1 Provide at least 75% of energy /protein needs through Enteral Feeding during LOS. Follow-Up By: 10/18/21 Additional Comments Continue monitoring TF tolerance and BM.
[2021-10-16] MEDS ORDERED: SODIUM PHOSPHATE 30 MMOL in SODIUM CHLORIDE 0.9% 500 ML 500 ML IV ONE (19:21)
[2021-10-16] MEDS ORDERED: REMDESIVIR 200 MG in SODIUM CHLORIDE 0.9% 250ML 250 ML IV ONE (21:00)
[2021-10-16] MEDS: SODIUM CHLORIDE 0.9% 50 ML IVPB IV SCH (21:46)
[2021-10-16] MEDS: SENNOSIDES/DOCUSATE SODIUM 8.6/50 MG TAB FEEDTUBE SCH (21:46)
[2021-10-16] MEDS: DEXAMETHASONE 4 MG TAB FEEDTUBE SCH (21:47)
[2021-10-16] MEDS: ZINC SULFATE 220 MG CAP PO SCH (21:48)
[2021-10-16] MEDS: VANCOMYCIN 750 MG in SODIUM CHLORIDE 0.9% 250ML 250 ML IV SCH (21:51)
[2021-10-16 23:58] LABS: Alanine Aminotransferase 13 units/L (7-56); Albumin 2.3 g/dL (3.9-5); BUN/Creatinine Ratio 40; Blood Urea Nitrogen 32 mg/dL (7-17); Calcium 7.8 mg/dL (8.4-10.2); Hemolysis Index 0
[2021-10-17] MEDS: INSULIN LISPRO 100 UNIT/ML SUB-Q SCH ×5 (01:28→21:53)
[2021-10-17] MEDS: CEFEPIME/NS 2 GM/100 ML 2 GM/100 ML BAG IV SCH ×2 (01:43→14:27)
[2021-10-17 02:10] LABS: C-Reactive Protein 26.9 mg/dL (0.00-1.30)
--- NOTE | 2021-10-17 02:43 | Consultation ---
DATE OF CONSULTATION: 10/16/2021 PULMONARY CRITICAL CARE CONSULTATION NOTE CONSULTING PHYSICIAN: Dr. Nevarez. REASON FOR CONSULTATION: Acute hypoxemic respiratory failure. CHIEF COMPLAINT AND HISTORY OF PRESENT ILLNESS: The patient is an 86-year-old female with past medical history significant amongst other things for a diagnosis of cerebrovascular accident, who also has dementia and an indwelling PEG catheter, but according to the family, she still eats orally and had been taking oral meals until a few days ago when she began to decline. She was [facility] by [facility] to the ER for severe respiratory distress and was hypoxemic. She was found at the house with O2 sats of 70% on room air. She was placed on BiPAP; however, in the Emergency Room, she continued to decompensate and she was intubated for airway protection and for oxygenation reasons. Post-intubation, we are asked to assist with management. When I stopped by to see her, she was resting in bed. She was on about 5 mcg of propofol and I believe fentanyl and was essentially nonresponsive. Her son, who I spoke to earlier, states that he only responds to her and speaks only his traditional language. He did not give a history of overt vomiting and aspiration, but again as I mentioned, he did say she was taking meals orally until a few days ago. Her tobacco use/abuse history is unknown. I do note she has had a tracheostomy in the past. The above is as much of the history of presentation as I have. PAST MEDICAL HISTORY: Again, dementia, cerebrovascular accident, hypertension, diabetes type 2. PAST SURGICAL HISTORY: She has an implanted cardiac device. MEDICATIONS: She was on at the time I stopped by to see her were reviewed. Pertinent medications include the following: Tylenol 650 mg p.o. q. 4 hours p.r.n. mild pain or fevers, all p.o. meds via the PEG tube, cefepime 2 grams IV q. 12 hours, Pepcid 20 mg IV b.i.d., Humalog insulin via sliding scale, Keppra 500 mg p.o. b.i.d., Reglan 10 mg IV q. 6 hours p.r.n. nausea and vomiting, morphine sulfate 2 mg IV q. 4 hours p.r.n. moderate pain, Levophed drip was going at 2 mcg per minute, Zofran 4 mg IV q. 3 hours p.r.n. nausea and vomiting, propofol was given at 5 mcg per kilogram per minute, Xarelto 2.5 mg p.o. b.i.d., vancomycin 750 mg IV daily. ALLERGIES: LISINOPRIL. Nature of this allergy is unknown. DIET: Thin, chronically ill-looking lady, acute weight loss or gain history is unknown. FAMILY AND SOCIAL HISTORY: Lives in the community. Lives with her son. Family denies alcohol, tobacco or illicit drug use or abuse. There is a family history of hypertension. REVIEW OF SYSTEMS: Unobtainable secondary to the patient's medical and mental condition. Since she has been here, no gross hematochezia or melena, no gross hematuria, no hematemesis, no bloody tracheal secretions, no witnessed seizures. Review of systems otherwise unobtainable or as in body of history above. PHYSICAL EXAMINATION: VITAL SIGNS: On presentation, she had a fever of 100.0 degrees Fahrenheit, pulse of 80, respiratory rate of 22, blood pressure 137/65, O2 sats were 93%, inspired oxygen concentration at that time was not recorded. When I stopped by to see her, her O2 sats were 98%, that was on the mechanical ventilator assist control, tidal volumes 400, rate of 22 and PEEP of 6 at the time and 70% FiO2. HEAD, EYES, EARS, NOSE AND THROAT: Anicteric. No conjunctival erythema. Oropharynx was dry. No gross jugular venous distention, no thyromegaly. She has a right IJ triple lumen central line. There is a tracheostomy scar that is well healed in the midline of the neck. Grossly, there were no palpable lymph nodes in the supraclavicular or submandibular lymph node chains. LUNGS: Auscultation of both lung escalera significant for diminished bibasilar air entry, diminished bilateral breath sounds and some basilar rales. No wheezing. HEART: Sounds 1 and 2 are heard at the time of my evaluation, regular paced rhythm without overt rubs or murmurs. ABDOMEN: Soft, flat, bowel sounds are positive, nontender. No palpable hepatosplenomegaly. EXTREMITIES: Without overt digital clubbing or cyanosis. No pedal edema. Pedal pulses are 2+ bilaterally. NEUROLOGIC: Pupils were equal, round, about 3 mm, sluggishly reactive to light. Extraocular muscle movements could not be assessed. She did not have any spontaneous movements of her extremities and was not responding. She would grimace to a soft sternal rub. 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 I do not see any cellulitis in the areas that I examined. Please see the wound care nurses' notes for full description of her skin. PSYCHIATRIC: Mood and affect were flat. She was sedated. LABORATORY DATA: From my review are as follows: Admission white cell count 17,200, hemoglobin 9.0, hematocrit 29.7, platelet count 308, 7% neutrophils. D-dimer 7434. INR within normal limits. Arterial blood gas showed a pH of 7.35 at presentation, pCO2 of 57, pO2 of 75 on 100% at that time. This morning, the gas showed a pH of 7.49, pCO2 of 36, pO2 of 102 that was on 75% FiO2 at that time. Serum sodium 134, potassium 4.6, chloride 90, bicarbonate 26, BUN 27, creatinine 0.6, glucose was 221. Lactic acid was 3.1, magnesium was 1.4. Ferritin 422. Liver function tests otherwise essentially within normal limits. Troponin was up at 0.036. CRP was up at 25.9. BNP was up at 6600. Procalcitonin was elevated at 7.46. Urinalysis was negative for nitrites and leukocyte esterase, 5 white cells per high power field. Aspirin, Tylenol levels were low. Urine drug screen was presumptive negative. Two sets of blood cultures are no growth to date. Chest x-ray shows left lower lobe greater than the right lower lobe infiltrate. ET tube is in good position. There is an implanted cardiac device in the left upper anterior chest wall. CT angio of her chest was also done. No filling defects consistent with pulmonary emboli, significant consolidation and atelectasis of the left lower lobe with areas of air bronchograms in the left mid lung zones consistent indeed with aspiration, possible endobronchial food particles or other lesion. She has small bilateral pleural effusions, pulmonary artery trunks are enlarged and consistent with pulmonary hypertension. A CT of the abdomen and pelvis showed no acute process. A 2D echocardiogram shows low normal ejection fraction of 45% to 50% and RV systolic pressures of 45-50 mmHg. No mention of diastolic function. ASSESSMENT: 1. Acute hypoxemic respiratory failure, on mechanical ventilatory support, possibly secondary to aspiration pneumonia. 2. Aspiration pneumonia. 3. Septic shock. 4. Patient under investigation for coronavirus-19 infection. 5. History of congestive heart failure. 6. History of cerebrovascular accident. 7. Adult failure to thrive. 8. Leukocytosis. 9. Anemia that is microcytic. 10. Lactic acidosis. 11. Hypomagnesemia. 12. Non-ST elevation myocardial infarction. 13. Oropharyngeal dysphagia. 14. History of dementia. PLAN: I do feel an aspiration pneumonia is a major player here. I will increase the PEEP from 6-10 to help open her airways. She may need a bronchoscopy down the road to check for and clear her endobronchial tree. Oxygen will be weaned to keep sats greater than or equal to about 90%. Aspiration precautions will be maintained. I have discussed with the family that she will definitely need a swallow evaluation and needs to be n.p.o. for now. Appropriately, she has been kept in contact and airborne precautions while a coronavirus test is pending. I will hold on further treatments for possible COVID infection at this time. Ventilator-associated pneumonia bundle has been introduced. Despite the history of congestive heart failure and septic state, gentle volume hydration will be continued. I will use normal saline at 75 mL per hour for 2 more liters. We will continue to trend the lactic acid level. I will go ahead and replace her magnesium. She will get 2 grams of magnesium. A phosphorus level also will be ordered and addressed. I will defer to the Infectious Disease team in terms of antibiotic therapy, but she has appropriate broad spectrum coverage at this point. I note the elevated D-dimer. She is on anticoagulation at this point. Her home medications included Xarelto. The son did mention she has a history of a DVT, so I will limit further venous thromboembolic disorder testing at this point. She is on GI prophylaxis. Enteral nutrition will be the feeding modality of choice. We will continue her home Keppra dose. Glycemic control will be for target blood glucose of 140-180 mg/dL while critically ill. Flu and pneumonia vaccination will be addressed per protocol. Thank you very much for the consult. We will follow along and make further recommendations as picture progresses/becomes clearer. She is critically ill, on life-sustaining interventions including mechanical ventilatory support and vasopressors, at very high risk of from cardiopulmonary system decompensation. At this time, I spent about 35-40 minutes of critical care time without overlap and excluding any procedural time that may be necessary. TID: [id number] RECEIPT: [id number] MARLEN/MAYLIN
[2021-10-17] MEDS: NORepinephrine/NS 8 MG-250 ML 8 MG/250 ML INFUS..BTL IV SCH (03:13)
[2021-10-17 06:42] LABS: Hematocrit 24.2 % (30.3-42.9); Hemoglobin 7.6 gm/dl (10.1-14.3); Mean Corpuscular HGB Conc 31 % (30-34); Mean Corpuscular Volume 77 fl (79-97); Platelet Count 283 K/mm3 (140-440); Red Blood Count 3.16 M/mm3 (3.65-5.03); Red Cell Distribution Width 17.7 % (13.2-15.2)
[2021-10-17 07:27] LABS: Basophils % (Manual) 0 % (0.0-1.8); Eosinophils % (Manual) 0 % (0.0-4.3); Total Cells Counted 100
[2021-10-17 07:28] LABS: Anisocytosis 1+; Hypochromasia 1+; Platelet Estimate Consistent w Auto; Poikilocytosis 1+; Target Cells 1+
[2021-10-17 07:36] LABS: BUN/Creatinine Ratio 40; Blood Urea Nitrogen 32 mg/dL (7-17); Calcium 8.4 mg/dL (8.4-10.2); Hemolysis Index 3
[2021-10-17] MEDS: SODIUM CHLORIDE 0.9% 1000 ML 1,000 ML IV SCH (08:48)
[2021-10-17] MEDS ORDERED: MAGNESIUM SULFATE 1 GM in SODIUM CHLORIDE 0.9% 50 ML IV ONE (08:53)
[2021-10-17] MEDS ORDERED: MAGNESIUM SULFATE 4 GM/100 ML BAG IV SCH (09:30)
[2021-10-17] MEDS ORDERED: POTASSIUM CHLORIDE 20 MEQ PACKET FEEDTUBE SCH (09:30)
[2021-10-17 09:52] LABS: Albumin 2.3 g/dL (3.9-5); Bilirubin,Direct 0.3 mg/dL (0-0.2)
--- NOTE | 2021-10-17 09:56 | Electrocardiograph Report ---
[facility] Test Date: 2021-10-16 Test Time: 07:40:06 Pat Name: SANJEEV DOMINGUEZ Department: Room: A255 1 Gender: F Card Folder: KRYSTYNA : 1935 Requested By: DIPIKA GRIDER Order Number: [id number] Reading MD: Fernando Leija Measurements Intervals [place] Rate: 80 P: VA: QRS: -71 QRSD: 169 T: 97 QT: 421 QTc: 485 Interpretive Statements Afib/flutter and 100% ventricular-paced rhythm No previous ECG available for comparison Electronically Signed On 10-17-2021 9:55:51 EST by Fernando Leija
[2021-10-17] MEDS: ASCORBIC ACID 500 MG TAB PO SCH (10:53)
[2021-10-17] MEDS: DEXAMETHASONE 4 MG TAB FEEDTUBE SCH (10:53)
[2021-10-17] MEDS: RIVAROXABAN 10 MG TAB PO SCH (10:53)
[2021-10-17] MEDS: levETIRAcetam 500 MG/5 ML ORAL LIQD PO SCH ×2 (10:54→21:48)
[2021-10-17] MEDS: CHOLECALCIFEROL (VIT D3) 5,000 UNIT TAB PO SCH (10:54)
[2021-10-17] MEDS: ZINC SULFATE 220 MG CAP PO SCH ×2 (10:54→21:50)
[2021-10-17] MEDS: FAMOTIDINE 20 MG/2 ML INJ IV SCH (10:54)
--- NOTE | 2021-10-17 12:49 | Progress Note ---
Assessment and Plan Cultures: 10/15/2021 blood culture: no growth COVID-19 PCR: Positive 10/15/2021 sputum culture: In process A/P: 86-year-old female with hypertension, prior CVA, diabetes, CHF, indwelling cardiac device admitted with resp distress: #Severe sepsis with septic shock, likely secondary to bilateral pneumonia with possible aspiration pneumonia. Labs showed leukocytosis with WBC 17.2, D-dimer 7433, lactate of 5.6, proBNP 6606, CRP 25.9, ferritin 418.8. UA with no pyuria. Briefly required pressors. Procalcitonin 39.5 #COVID-19 pneumonia: COVID PCR positive. #Acute hypoxic respiratory failure: on the vent #CHF, indwelling cardiac device: BNP elevated. #Prior CVA Recs: -steroids and Remdesivir for COVID-19 -Not a candidate for Actemra due to very high white count and procalcitonin with concern for superadded bacterial infection -continue IV cefepime (dose reduced to 2 gm q12 hrs), IV vancomycin -Follow-up blood and sputum cultures -guarded prognosis Yogi Maher MD, FACP, [facility] ([facility] O: [phone] F: [phone] Subjective Date of service: 10/17/21 Interval history: Remains on the vent. No fever. COVID-19 PCR came back positive. Objective - Exam Narrative Exam: Physical Exam: Constitutional: sedated, intubated, on the vent Head, Ears, Nose: Normocephalic, atraumatic. External ears, nose normal Eyes: Conjunctivae/corneas clear. No icterus. No ptosis. Neck: intubated Oral: intubated Cardiovascular: S1, S2 + Respiratory: AE fair bilaterally and equal GI: Soft, bowel sounds + Musculoskeletal: No pedal edema, no cyanosis. Skin: No rash or abscess Hem/Lymphatic: No palpable cervical or supraclavicular nodes. No lymphangitis Psych: no agitation Neurological: sedated, intubated, on the vent, exam limited - Constitutional Vitals: Vital Signs Temp Pulse Resp BP Pulse Ox 97 F L 80 22 104/62 100 10/17/21 03:29 10/17/21 09:14 10/17/21 08:30 10/17/21 09:14 10/17/21 09:14 Temperature -Last 24 Hours Temperature 97 F Temperature 98.4 F Temperature 100.4 F Temperature 98.4 F - Labs CBC & Chem 7: 10/17/21 06:02 10/17/21 06:02 Labs: Abnormal lab results 10/16/21 10/16/21 10/16/21 Range/Units 09:05 09:36 17:19 WBC (4.5-11.0) K/mm3 RBC (3.65-5.03) M/mm3 Hgb (10.1-14.3) gm/dl Hct (30.3-42.9) % MCV (79-97) fl MCH (28-32) pg RDW (13.2-15.2) % Seg Neuts % (Manual) (40.0-70.0) % Lymphocytes % (Manual) (13.4-35.0) % Seg Neutrophils # Man (1.8-7.7) K/mm3 Lymphocytes # (Manual) (1.2-5.4) K/mm3 Potassium (3.6-5.0) mmol/L BUN (7-17) mg/dL Glucose (65-100) mg/dL POC Glucose 128 H (70-105) mg/dL Calcium (8.4-10.2) mg/dL Phosphorus 2.10 L (2.5-4.5) mg/dL Magnesium (1.7-2.3) mg/dL Ferritin (10.0-200.0) ng/mL Direct Bilirubin (0-0.2) mg/dL Lactate Dehydrogenase (91-180) units/L C-Reactive Protein (0.00-1.30) mg/dL Total Protein (6.3-8.2) g/dL Albumin (3.9-5) g/dL Coronavirus (PCR) Positive A (Negative) 10/16/21 10/16/21 10/16/21 Range/Units 21:00 23:31 23:31 WBC (4.5-11.0) K/mm3 RBC (3.65-5.03) M/mm3 Hgb (10.1-14.3) gm/dl Hct (30.3-42.9) % MCV (79-97) fl MCH (28-32) pg RDW (13.2-15.2) % Seg Neuts % (Manual) (40.0-70.0) % Lymphocytes % (Manual) (13.4-35.0) % Seg Neutrophils # Man (1.8-7.7) K/mm3 Lymphocytes # (Manual) (1.2-5.4) K/mm3 Potassium (3.6-5.0) mmol/L BUN 32 H (7-17) mg/dL Glucose 163 H (65-100) mg/dL POC Glucose 132 H (70-105) mg/dL Calcium 7.8 L (8.4-10.2) mg/dL Phosphorus (2.5-4.5) mg/dL Magnesium (1.7-2.3) mg/dL Ferritin (10.0-200.0) ng/mL Direct Bilirubin (0-0.2) mg/dL Lactate Dehydrogenase 216 H (91-180) units/L C-Reactive Protein 26.90 H (0.00-1.30) mg/dL Total Protein 5.7 L (6.3-8.2) g/dL Albumin 2.3 L (3.9-5) g/dL Coronavirus (PCR) (Negative) 10/17/21 10/17/21 10/17/21 Range/Units 06:02 06:02 06:02 WBC 16.7 H (4.5-11.0) K/mm3 RBC 3.16 L (3.65-5.03) M/mm3 Hgb 7.6 L (10.1-14.3) gm/dl Hct 24.2 L (30.3-42.9) % MCV 77 L (79-97) fl MCH 24 L (28-32) pg RDW 17.7 H (13.2-15.2) % Seg Neuts % (Manual) 95.0 H (40.0-70.0) % Lymphocytes % (Manual) 1.0 L (13.4-35.0) % Seg Neutrophils # Man 15.9 H (1.8-7.7) K/mm3 Lymphocytes # (Manual) 0.2 L (1.2-5.4) K/mm3 Potassium 3.5 L (3.6-5.0) mmol/L BUN 32 H (7-17) mg/dL Glucose 216 H (65-100) mg/dL POC Glucose (70-105) mg/dL Calcium (8.4-10.2) mg/dL Phosphorus (2.5-4.5) mg/dL Magnesium 1.40 L (1.7-2.3) mg/dL Ferritin 428.7 H (10.0-200.0) ng/mL Direct Bilirubin (0-0.2) mg/dL Lactate Dehydrogenase 257 H (91-180) units/L C-Reactive Protein 28.50 H (0.00-1.30) mg/dL Total Protein (6.3-8.2) g/dL Albumin (3.9-5) g/dL Coronavirus (PCR) (Negative) 10/17/21 10/17/21 10/17/21 Range/Units 06:02 06:21 08:35 WBC (4.5-11.0) K/mm3 RBC (3.65-5.03) M/mm3 Hgb (10.1-14.3) gm/dl Hct (30.3-42.9) % MCV (79-97) fl MCH (28-32) pg RDW (13.2-15.2) % Seg Neuts % (Manual) (40.0-70.0) % Lymphocytes % (Manual) (13.4-35.0) % Seg Neutrophils # Man (1.8-7.7) K/mm3 Lymphocytes # (Manual) (1.2-5.4) K/mm3 Potassium (3.6-5.0) mmol/L BUN (7-17) mg/dL Glucose (65-100) mg/dL POC Glucose 219 H 216 H (70-105) mg/dL Calcium (8.4-10.2) mg/dL Phosphorus (2.5-4.5) mg/dL Magnesium (1.7-2.3) mg/dL Ferritin (10.0-200.0) ng/mL Direct Bilirubin 0.3 H (0-0.2) mg/dL Lactate Dehydrogenase (91-180) units/L C-Reactive Protein (0.00-1.30) mg/dL Total Protein 5.8 L (6.3-8.2) g/dL Albumin 2.3 L (3.9-5) g/dL Coronavirus (PCR) (Negative)
[2021-10-17] MEDS ORDERED: HEPARIN 10,000 UNITS/10 ML VIAL IV PRN ×2 (13:41→14:00)
--- NOTE | 2021-10-17 13:55 | Progress Note ---
Assessment and Plan - Patient Problems (1) Respiratory failure Current Visit: Yes Status: Acute Plan to address problem: Patient presented with respiratory failure, currently sedated, on the vent. There is no clinical or x-ray evidence of fluid overload or heart failure, there is some mild to moderate cardiomegaly on the chest x-ray, and echocardiogram is pending for left ventricular function assessment. The patient's chest x-ray does show a consolidation in the left lower lobe, consistent with acute pneumonia. COVID-19 test is positive. (2) Cardiac pacemaker Current Visit: Yes Status: Acute Plan to address problem: Patient has a dual-chamber pacemaker in situ, we will request old records including outpatient records to obtain details of her pacemaker and other previ ous cardiac work-up and interventions. Subjective Date of service: 10/17/21 Interval history: Patient is unresponsive, on the vent. No cardiac events reported. On lunchroom monitor, she has a ventricular paced rhythm at 80. Objective Vital Signs Temp Pulse Resp BP Pulse Ox 10/17/21 12:09 80 93/60 100 10/17/21 09:14 80 104/62 100 10/17/21 08:30 80 22 105/68 99 10/17/21 08:15 80 22 88/55 10/17/21 08:00 80 22 88/55 10/17/21 07:45 84 22 92/55 100 10/17/21 07:30 80 22 95/55 100 10/17/21 07:15 80 22 90/54 100 10/17/21 07:00 80 22 95/57 100 10/17/21 06:45 80 22 116/69 10/17/21 06:30 80 22 96/58 10/17/21 06:15 80 22 91/53 99 10/17/21 06:00 84 22 97/60 10/17/21 05:45 80 22 92/54 100 10/17/21 05:30 80 22 89/54 100 10/17/21 05:15 80 22 102/62 10/17/21 05:00 80 22 95/58 100 10/17/21 04:45 80 22 90/56 10/17/21 04:30 80 22 89/60 10/17/21 04:15 80 22 96/59 100 10/17/21 04:00 80 22 101/63 92 10/17/21 03:45 80 22 83/51 10/17/21 03:30 80 22 85/54 10/17/21 03:29 97 F L 10/17/21 03:15 80 22 90/57 100 10/17/21 03:00 80 22 114/67 10/17/21 02:45 80 22 106/63 100 10/17/21 02:42 80 106/63 100 10/17/21 02:30 80 22 116/73 10/17/21 02:15 80 22 112/68 100 10/17/21 02:00 80 22 118/70 10/17/21 01:45 80 22 106/63 10/17/21 01:30 80 22 110/67 10/17/21 01:15 80 22 106/61 100 10/17/21 01:00 80 22 124/71 100 10/17/21 00:45 80 22 105/59 100 10/17/21 00:30 80 22 104/59 10/17/21 00:15 80 22 103/55 10/17/21 00:00 80 22 92/51 92 10/16/21 23:47 98.4 F 10/16/21 23:45 80 22 93/53 10/16/21 23:30 80 22 82/48 10/16/21 23:15 80 22 83/48 100 10/16/21 23:00 80 22 87/48 99 10/16/21 22:45 80 21 89/49 10/16/21 22:30 80 22 88/50 98 10/16/21 22:15 80 22 82/48 93 10/16/21 22:00 80 23 134/70 99 10/16/21 21:45 80 32 H 137/72 95 10/16/21 21:30 80 24 126/69 98 10/16/21 21:15 80 33 H 147/73 91 10/16/21 21:00 80 33 H 165/79 86 10/16/21 20:45 80 27 H 183/87 10/16/21 20:41 80 183/87 93 10/16/21 20:30 80 22 115/65 10/16/21 20:15 80 22 113/63 100 10/16/21 20:00 80 22 116/66 100 10/16/21 19:50 100.4 F H 10/16/21 19:45 80 22 120/66 100 10/16/21 19:30 80 22 104/61 100 10/16/21 19:15 80 22 116/66 100 10/16/21 19:01 80 22 137/71 100 10/16/21 18:45 80 23 121/68 100 10/16/21 18:30 80 23 134/75 100 10/16/21 18:15 72 17 151/87 99 10/16/21 18:00 80 22 91/57 100 10/16/21 17:45 80 22 101/60 100 10/16/21 17:30 80 22 97/54 10/16/21 17:15 80 22 94/55 100 10/16/21 17:00 80 22 100/59 98 10/16/21 16:45 79 22 100/61 100 10/16/21 16:30 80 22 105/60 100 10/16/21 16:15 80 22 93/57 99 10/16/21 16:00 98.4 F 80 22 107/60 100 10/16/21 15:57 80 22 96/63 100 10/16/21 15:45 80 22 96/63 10/16/21 15:30 79 22 91/54 100 10/16/21 15:29 80 91/54 100 10/16/21 15:15 80 22 99/64 10/16/21 15:00 80 22 92/55 100 10/16/21 14:45 80 22 98/54 100 10/16/21 14:30 80 22 98/61 10/16/21 14:15 80 22 94/55 10/16/21 14:00 80 22 83/53 - Physical Examination General: Other (Unresponsive, on the ventilator) HEENT: Positive: Other (Pupils fixed) Neck: Positive: neck supple Cardiac: Positive: Irregularly Regular Lungs: Positive: Decreased Breath Sounds Neuro: Positive: Other (Unresponsive, on the ventilator) Abdomen: Positive: Soft Skin: Positive: Clear Extremities: Absent: edema - Labs and Meds Cardiac Enzymes 10/16/21 10/16/21 10/17/21 Range/Units 23:31 23:31 06:02 AST 23 (5-40) units/L Lactate Dehydrogenase 216 H 257 H (91-180) units/L 10/17/21 Range/Units 06:02 AST 26 (5-40) units/L Lactate Dehydrogenase (91-180) units/L CBC 10/17/21 Range/Units 06:02 WBC 16.7 H (4.5-11.0) K/mm3 RBC 3.16 L (3.65-5.03) M/mm3 Hgb 7.6 L (10.1-14.3) gm/dl Hct 24.2 L (30.3-42.9) % Plt Count 283 (140-440) K/mm3 Comprehensive Metabolic Panel 10/16/21 10/17/21 10/17/21 Range/Units 23:31 06:02 06:02 Sodium 137 139 (137-145) mmol/L Potassium 3.6 3.5 L (3.6-5.0) mmol/L Chloride 98.8 101.4 (98-107) mmol/L Carbon Dioxide 24 22 (22-30) mmol/L BUN 32 H 32 H (7-17) mg/dL Creatinine 0.8 0.8 (0.6-1.2) mg/dL Glucose 163 H 216 H (65-100) mg/dL Calcium 7.8 L 8.4 (8.4-10.2) mg/dL Direct Bilirubin 0.3 H (0-0.2) mg/dL Indirect Bilirubin 0.1 mg/dL AST 23 26 (5-40) units/L ALT 13 15 (7-56) units/L Alkaline Phosphatase 56 60 (35-129) units/L Total Protein 5.7 L 5.8 L (6.3-8.2) g/dL Albumin 2.3 L 2.3 L (3.9-5) g/dL Pacemaker: ventricular pacing w/capt
--- NOTE | 2021-10-17 14:02 | Progress Note ---
Assessment and Plan Acute hypoxemic respiratory failure on MVS Aspiration pneumonia Septic shock COVID-19 infection DVT CHF H/O CVA Adult FTT Leukocytosis Anemia that is microcytic Lactic acidosis Hypomagnesemia NSTEMI Oropharyngeal dysphagia Dementia - stop Xarelto - begin IV Heparin P.E. protocol (No Bolus) - reduced set rate to 16/min - repeat ABG in am - K+ & Mg2+ corrected - follow 2D ECHO report - continue care as below otherwise; - Daily SAT and SBT assessment as tolerated - continue to wean supplemental oxygen for target O2 sat's > 90% acutely - VAP bundle addressed - continue lung protective strategies - continue bronchodilators with pulmonary hygiene per RT - wean per pulmonary driven protocols otherwise - sedation prn for target RASS 0 to -1 - continue to avoid nephrotoxins, renally dose all medications - continue mobility protocols to prevent pressure ulcers - PT/OT as tolerated - Wound care per RN/WCT - continue accuchecks with glycemic control per SSI (While critically ill target blood glucose of 140-180 mg/dL; avoid hypoglycemia) - home oxygen evaluation at discharge - GI & VTE prophylaxis - Flu & pneumovax per protocol - continue other care per attending / other consultants - prn analgesia per pain score COVID SPECIFIC INTERVENTIONS - Remdesivir as per ID/Pulmonary developed protocols (Receiving) - continue systemic steroids for severe COVID-19 infection empirically (Dexamethasone) - follow repeat COVID tests results - zinc and vitamin C supplementation - Monitor inflammatory markers per facility protocol - ferritin, Ddimer, CRP - therapeutic anticoagulation per system Protocol based on d-dimer and clinical considerations (on IV Heparin re: DVT) - Contact and airborne isolation .... Re-evaluate in am & prn CONDITION: CRITICAL PROGNOSIS: GUARDED CODE STATUS: FULL CODE The high probability of a clinically significant, sudden or life-threatening deterioration of the [respiratory, cardiovascular, hematologic & neurologic] system(s) required my full and direct attention, intervention and personal management. The aggregate critical care time was [33] minutes without overlap. Time includes spent on; [x] Data Review and interpretation [x] Patient assessment and monitoring of vital signs [x] Documentation [x] Medication orders and management Subjective Date of service: 10/17/21 Principal diagnosis: AHRF; Pneumonia; Septic shock; COVID-19 infection; CHF; DVT; NSTEMI Interval history: Patient is seen today for: AHRF; Aspiration pneumonia; Septic shock; COVID-19 infection; CHF; DVT; NSTEMI Seen and examined at bedside; 24hour events reviewed; nursing and respiratory care staff consulted; no adverse overnight events reported to me; resting peacefully in bed; dopplers positive for DVT's; remains on Levophed drip but weaning; CVP's running 10-12; also s/p 2D ECHO Objective Vital Signs - 12hr 10/17/21 10/17/21 10/17/21 01:45 02:00 02:15 Temperature Pulse Rate 80 80 80 Respiratory 22 22 22 Rate Blood Pressure 106/63 118/70 112/68 O2 Sat by Pulse 100 Oximetry 10/17/21 10/17/21 10/17/21 02:30 02:42 02:45 Temperature Pulse Rate 80 80 80 Respiratory 22 22 Rate Blood Pressure 116/73 106/63 106/63 O2 Sat by Pulse 100 100 Oximetry 10/17/21 10/17/21 10/17/21 03:00 03:15 03:29 Temperature 97 F L Pulse Rate 80 80 Respiratory 22 22 Rate Blood Pressure 114/67 90/57 O2 Sat by Pulse 100 Oximetry 10/17/21 10/17/21 10/17/21 03:30 03:45 04:00 Temperature Pulse Rate 80 80 80 Respiratory 22 22 22 Rate Blood Pressure 85/54 83/51 101/63 O2 Sat by Pulse 92 Oximetry 10/17/21 10/17/21 10/17/21 04:15 04:30 04:45 Temperature Pulse Rate 80 80 80 Respiratory 22 22 22 Rate Blood Pressure 96/59 89/60 90/56 O2 Sat by Pulse 100 Oximetry 10/17/21 10/17/21 10/17/21 05:00 05:15 05:30 Temperature Pulse Rate 80 80 80 Respiratory 22 22 22 Rate Blood Pressure 95/58 102/62 89/54 O2 Sat by Pulse 100 100 Oximetry 10/17/21 10/17/21 10/17/21 05:45 06:00 06:15 Temperature Pulse Rate 80 84 80 Respiratory 22 22 22 Rate Blood Pressure 92/54 97/60 91/53 O2 Sat by Pulse 100 99 Oximetry 10/17/21 10/17/21 10/17/21 06:30 06:45 07:00 Temperature Pulse Rate 80 80 80 Respiratory 22 22 22 Rate Blood Pressure 96/58 116/69 95/57 O2 Sat by Pulse 100 Oximetry 10/17/21 10/17/21 10/17/21 07:15 07:30 07:45 Temperature Pulse Rate 80 80 84 Respiratory Rate Blood Pressure 90/54 95/55 92/55 O2 Sat by Pulse 100 100 100 Oximetry 10/17/21 10/17/21 10/17/21 08:00 08:15 08:30 Temperature Pulse Rate 80 80 80 Respiratory 22 Rate Blood Pressure 88/55 88/55 105/68 O2 Sat by Pulse 99 Oximetry 10/17/21 09:14 Temperature Pulse Rate 80 Respiratory Rate Blood Pressure 104/62 O2 Sat by Pulse 100 Oximetry Constitutional: no acute distress, other (elderly and chronically ill looking female with mildly increased respiratory effort at rest) Eyes: non-icteric ENT: oropharynx dry, other (ETT 23 cm JESSICA) Neck: supple, no lymphadenopathy, no JVD Effort: mildly labored Ascultation: Bilateral: diminished breath sounds, rhonchi Percussion: Bilateral: not dull Cardiovascular: regular rate and rhythm Gastrointestinal: normoactive bowel sounds, soft, non-tender, non-distended, other (PEG tube) Integumentary: rash (xeroderma type) Neurologic: pupils equal and round, unable to assess Psychiatric: other (unable to assess re: AMS) CBC and BMP: 10/17/21 06:02 10/17/21 06:02 ABG, PT/INR, D-dimer: ABG ABG pH 7.490 (7.320-7.450) H 10/16/21 04:50 POC ABG pCO2 35.5 mmHg (32.0-48.0) 10/16/21 04:50 ABG pCO2 57.0 mm Hg 10/15/21 16:42 POC ABG pO2 101.9 mmHg (83-108) 10/16/21 04:50 ABG pO2 75.4 mm Hg (80.0-90.0) L 10/15/21 16:42 POC ABG HCO3 26.4 10/16/21 04:50 ABG O2 Saturation 98.0 (0-100) 10/16/21 04:50 PT/INR, D-dimer PT 14.6 Sec. (12.2-14.9) 10/15/21 16:15 INR 1.03 (0.87-1.13) 10/15/21 16:15 D-Dimer 7433.97 ng/mlDDU (0-234) H 10/15/21 16:15 Abnormal lab findings: Abnormal Labs 10/15/21 10/15/21 10/15/21 16:15 16:15 16:15 WBC 17.2 H RBC Hgb 9.0 L Hct 29.7 L MCV 78 L MCH 24 L RDW 17.5 H Seg Neuts % (Manual) 88.0 H Lymphocytes % (Manual) 3.0 L Seg Neutrophils # Man 15.1 H Lymphocytes # (Manual) 0.5 L APTT 38.0 H D-Dimer 7433.97 H ABG pH ABG pO2 ABG HCO3 ABG O2 Saturation ABG Base Excess ABG Hemoglobin ABG Sodium ABG Chloride ABG Glucose Oxyhemoglobin Sodium Potassium Chloride BUN Glucose POC Glucose Lactic Acid 5.60 H* Calcium Phosphorus Magnesium Ferritin Direct Bilirubin Lactate Dehydrogenase Troponin T C-Reactive Protein NT-Pro-B Natriuret Pep Total Protein Albumin LDL Cholesterol Direct HDL Cholesterol Arterial Blood Glucose Salicylates Acetaminophen Coronavirus (PCR) 10/15/21 10/15/21 10/15/21 16:15 16:15 16:15 WBC RBC Hgb Hct MCV MCH RDW Seg Neuts % (Manual) Lymphocytes % (Manual) Seg Neutrophils # Man Lymphocytes # (Manual) APTT D-Dimer ABG pH ABG pO2 ABG HCO3 ABG O2 Saturation ABG Base Excess ABG Hemoglobin ABG Sodium ABG Chloride ABG Glucose Oxyhemoglobin Sodium 134 L Potassium Chloride 89.6 L BUN 27 H Glucose 234 H POC Glucose Lactic Acid Calcium Phosphorus Magnesium 1.40 L Ferritin Direct Bilirubin 0.3 H Lactate Dehydrogenase Troponin T C-Reactive Protein NT-Pro-B Natriuret Pep 6606 H Total Protein 6.2 L Albumin 3.1 L LDL Cholesterol Direct HDL Cholesterol Arterial Blood Glucose Salicylates < 0.3 L Acetaminophen 5.0 L Coronavirus (PCR) 10/15/21 10/15/21 10/15/21 16:15 16:15 16:15 WBC RBC Hgb Hct MCV MCH RDW Seg Neuts % (Manual) Lymphocytes % (Manual) Seg Neutrophils # Man Lymphocytes # (Manual) APTT D-Dimer ABG pH ABG pO2 ABG HCO3 ABG O2 Saturation ABG Base Excess ABG Hemoglobin ABG Sodium ABG Chloride ABG Glucose Oxyhemoglobin Sodium Potassium Chloride BUN Glucose 221 H POC Glucose Lactic Acid Calcium Phosphorus Magnesium Ferritin 418.8 H 421.6 H Direct Bilirubin Lactate Dehydrogenase 233 H Troponin T C-Reactive Protein 25.90 H NT-Pro-B Natriuret Pep Total Protein Albumin LDL Cholesterol Direct HDL Cholesterol Arterial Blood Glucose Salicylates Acetaminophen Coronavirus (PCR) 10/15/21 10/15/21 10/15/21 16:42 18:00 18:00 WBC RBC Hgb Hct MCV MCH RDW Seg Neuts % (Manual) Lymphocytes % (Manual) Seg Neutrophils # Man Lymphocytes # (Manual) APTT D-Dimer ABG pH 7.348 L ABG pO2 75.4 L ABG HCO3 30.6 H ABG O2 Saturation 94.3 L ABG Base Excess 3.9 H ABG Hemoglobin 10.9 L ABG Sodium ABG Chloride ABG Glucose Oxyhemoglobin 93.1 L Sodium Potassium Chloride BUN Glucose POC Glucose Lactic Acid 3.10 H* Calcium Phosphorus Magnesium Ferritin Direct Bilirubin Lactate Dehydrogenase Troponin T 0.036 H C-Reactive Protein NT-Pro-B Natriuret Pep Total Protein Albumin LDL Cholesterol Direct 46 L HDL Cholesterol 25 L Arterial Blood Glucose Salicylates Acetaminophen Coronavirus (PCR) 10/15/21 10/16/21 10/16/21 20:58 01:55 04:50 WBC RBC Hgb Hct MCV MCH RDW Seg Neuts % (Manual) Lymphocytes % (Manual) Seg Neutrophils # Man Lymphocytes # (Manual) APTT D-Dimer ABG pH 7.490 H ABG pO2 ABG HCO3 ABG O2 Saturation ABG Base Excess ABG Hemoglobin 9.7 L ABG Sodium 128.9 L ABG Chloride 96.0 L ABG Glucose 235 H Oxyhemoglobin Sodium 135 L Potassium Chloride 94.9 L BUN 28 H Glucose 226 H POC Glucose Lactic Acid Calcium Phosphorus Magnesium Ferritin Direct Bilirubin Lactate Dehydrogenase Troponin T 0.038 H C-Reactive Protein NT-Pro-B Natriuret Pep Total Protein Albumin LDL Cholesterol Direct HDL Cholesterol Arterial Blood Glucose 235 H Salicylates Acetaminophen Coronavirus (PCR) 10/16/21 10/16/21 10/16/21 09:05 09:05 09:05 WBC 14.9 H RBC 3.20 L Hgb 7.6 L Hct 24.8 L MCV 77 L MCH 24 L RDW 17.5 H Seg Neuts % (Manual) Lymphocytes % (Manual) Seg Neutrophils # Man Lymphocytes # (Manual) APTT D-Dimer ABG pH ABG pO2 ABG HCO3 ABG O2 Saturation ABG Base Excess ABG Hemoglobin ABG Sodium ABG Chloride ABG Glucose Oxyhemoglobin Sodium 132 L Potassium Chloride 93.2 L BUN 28 H Glucose 225 H POC Glucose Lactic Acid 2.30 H* Calcium 8.3 L Phosphorus Magnesium 1.30 L Ferritin Direct Bilirubin Lactate Dehydrogenase Troponin T C-Reactive Protein NT-Pro-B Natriuret Pep Total Protein 5.7 L Albumin 2.4 L LDL Cholesterol Direct HDL Cholesterol Arterial Blood Glucose Salicylates Acetaminophen Coronavirus (PCR) 10/16/21 10/16/21 10/16/21 09:05 09:36 12:24 WBC RBC Hgb Hct MCV MCH RDW Seg Neuts % (Manual) Lymphocytes % (Manual) Seg Neutrophils # Man Lymphocytes # (Manual) APTT D-Dimer ABG pH ABG pO2 ABG HCO3 ABG O2 Saturation ABG Base Excess ABG Hemoglobin ABG Sodium ABG Chloride ABG Glucose Oxyhemoglobin Sodium Potassium Chloride BUN Glucose POC Glucose 187 H Lactic Acid Calcium Phosphorus 2.10 L Magnesium Ferritin Direct Bilirubin Lactate Dehydrogenase Troponin T C-Reactive Protein NT-Pro-B Natriuret Pep Total Protein Albumin LDL Cholesterol Direct HDL Cholesterol Arterial Blood Glucose Salicylates Acetaminophen Coronavirus (PCR) Positive A 10/16/21 10/16/21 10/16/21 17:19 21:00 23:31 WBC RBC Hgb Hct MCV MCH RDW Seg Neuts % (Manual) Lymphocytes % (Manual) Seg Neutrophils # Man Lymphocytes # (Manual) APTT D-Dimer ABG pH ABG pO2 ABG HCO3 ABG O2 Saturation ABG Base Excess ABG Hemoglobin ABG Sodium ABG Chloride ABG Glucose Oxyhemoglobin Sodium Potassium Chloride BUN Glucose POC Glucose 128 H 132 H Lactic Acid Calcium Phosphorus Magnesium Ferritin Direct Bilirubin Lactate Dehydrogenase 216 H Troponin T C-Reactive Protein 26.90 H NT-Pro-B Natriuret Pep Total Protein Albumin LDL Cholesterol Direct HDL Cholesterol Arterial Blood Glucose Salicylates Acetaminophen Coronavirus (PCR) 10/16/21 10/17/21 10/17/21 23:31 06:02 06:02 WBC 16.7 H RBC 3.16 L Hgb 7.6 L Hct 24.2 L MCV 77 L MCH 24 L RDW 17.7 H Seg Neuts % (Manual) 95.0 H Lymphocytes % (Manual) 1.0 L Seg Neutrophils # Man 15.9 H Lymphocytes # (Manual) 0.2 L APTT D-Dimer ABG pH ABG pO2 ABG HCO3 ABG O2 Saturation ABG Base Excess ABG Hemoglobin ABG Sodium ABG Chloride ABG Glucose Oxyhemoglobin Sodium Potassium Chloride BUN 32 H Glucose 163 H POC Glucose Lactic Acid Calcium 7.8 L Phosphorus Magnesium Ferritin 428.7 H Direct Bilirubin Lactate Dehydrogenase Troponin T C-Reactive Protein NT-Pro-B Natriuret Pep Total Protein 5.7 L Albumin 2.3 L LDL Cholesterol Direct HDL Cholesterol Arterial Blood Glucose Salicylates Acetaminophen Coronavirus (PCR) 10/17/21 10/17/21 10/17/21 06:02 06:02 06:21 WBC RBC Hgb Hct MCV MCH RDW Seg Neuts % (Manual) Lymphocytes % (Manual) Seg Neutrophils # Man Lymphocytes # (Manual) APTT D-Dimer ABG pH ABG pO2 ABG HCO3 ABG O2 Saturation ABG Base Excess ABG Hemoglobin ABG Sodium ABG Chloride ABG Glucose Oxyhemoglobin Sodium Potassium 3.5 L Chloride BUN 32 H Glucose 216 H POC Glucose 219 H Lactic Acid Calcium Phosphorus Magnesium 1.40 L Ferritin Direct Bilirubin 0.3 H Lactate Dehydrogenase 257 H Troponin T C-Reactive Protein 28.50 H NT-Pro-B Natriuret Pep Total Protein 5.8 L Albumin 2.3 L LDL Cholesterol Direct HDL Cholesterol Arterial Blood Glucose Salicylates Acetaminophen Coronavirus (PCR) 10/17/21 10/17/21 08:35 12:38 WBC RBC Hgb Hct MCV MCH RDW Seg Neuts % (Manual) Lymphocytes % (Manual) Seg Neutrophils # Man Lymphocytes # (Manual) APTT D-Dimer ABG pH ABG pO2 ABG HCO3 ABG O2 Saturation ABG Base Excess ABG Hemoglobin ABG Sodium ABG Chloride ABG Glucose Oxyhemoglobin Sodium Potassium Chloride BUN Glucose POC Glucose 216 H 262 H Lactic Acid Calcium Phosphorus Magnesium Ferritin Direct Bilirubin Lactate Dehydrogenase Troponin T C-Reactive Protein NT-Pro-B Natriuret Pep Total Protein Albumin LDL Cholesterol Direct HDL Cholesterol Arterial Blood Glucose Salicylates Acetaminophen Coronavirus (PCR) Chest x-ray: pending Allied health notes reviewed: nursing
[2021-10-17] MEDS: HEPARIN/ 0.45% NACL DRIP 25,000 UNIT/500 ML BAG IV SCH (14:26)
--- NOTE | 2021-10-17 14:35 | Progress Note ---
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 A/P: Neuro: Sedated, h/o CVA, Alzheimer's, nonverbal at baseline, seizure disorder -Avoid delirium -Reorientation as needed -Continue home Keppra -Sedated with propofol -RASS goal 0 to -1 -Aspiration/seizure precautions -As needed analgesia -Maintain sleep-wake cycle Cardiac: Hypotension, h/o HTN, CHF, pacemaker placement -Blood pressure monitoring per protocol -Vasopressor support with Levophed -MAP goal greater than 65 -Cardiology consulted, appreciate recommendations -Echocardiogram LVEF 45 to 50%, RVSP 45-50 mmHg, moderate left ventricular hypertrophy, trace to small anterior pericardial effusion no tamponade -Hold home antihypertensive regimen at this time -Admit proBNP 6606 -IV Lasix Respiratory: Acute hypoxic respiratory failure -CCM consulted, appreciate recommendations -Intubated on 10/15 with 7 oett at 23 at the lips -A.m. vent settings: Assist-control rate 22, tidal volume 400, PEEP 8, FiO2 50% -CCM increased PEEP and decreased TV -See RT notes for titration -A.m. ABG and CXR noted -VAP bundle -SPO2 monitoring GI: Protein calorie malnutrition -24 hours -335 ml -PEG tube in place -PPI -NTR consult for tube feedings -SD: Senokot : Hypokalemia, hypomagnesemia -Strict intake and output -Renally dose medications -Avoid nephrotoxic medications -replete electrolytes -Potassium and magnesium -Daily weights -Trend BMP ID: Severe Sepsis with Shock (POA), COVID 19 PNA, Lactic acidosis, possible aspiration PNA -CXR showed B PNA -CT chest showed B consolidation (left greater than right) -Infectious disease consulted, appreciate recommendations -Antibiotic therapy with cefepime and vancomycin -Procalcitonin 39.5, CRP 26.9 -Droplet/contact precautions -Trend COVID-19 inflammatory markers -Vitamin D/vitamin C/zinc -Dexamethasone 6 mg daily (10/16-10/26) -Remdisivir (10/16-10/21) -Monitor WBC and temperature curve Endo: h/o DM -Avoid hypoglycemia -Lantus, titrate as needed -SSI, high-dose -Accu-Cheks q. 6 Heme: Leukocytosis, acute bilateral common femoral DVT -CTA chest without PE -Restarted home Xarelto -Started on heparin drip, no bolus -Bilateral lower extremities ultrasound shows acute bilateral common femoral DVT -Trend CBC -SCDs to BLE while in bed -Transfuse hemoglobin less than 7 The high probability of a clinically significant, sudden or life threatening deterioration of the [multi] system(s) required my full and direct attention, intervention and personal management. The aggregate critical care time was [60] minutes. This time is in addition to time spent performing reported procedures but includes the following: [x] Data Review and interpretation [x] Patient assessment and monitoring of vital signs [x] Documentation [x] Medication orders and management Disposition Plan: icu Total Time Spent with Patient (Minutes): 60 History Interval history: This is a 86-year-old female with HTN, CVA (2019), DM, seizure disorder, right lower leg DVT (on Xarelto), nonverbal at baseline, Alzheimer, CHF with pacemaker in situ who presented to the emergency department via EMS for severe respiratory distress with hypoxia. Upon arrival EMS patient was found to be in in respiratory distress and with altered mental status with SPO2 of 70% on room air. She was placed on BiPAP and transferred to the emergency department. In the emergency department patient was intubated for airway protection and increasing oxygen demands. Work-up in the emergency department included a CXR w hich showed possible aspiration pneumonia, leukocytosis, elevated proBNP, elevated CRP, elevated dddimer, lactic acidosis, hypomagnesemia, hyponatremia and elevated proBNP. Patient was admitted to the hospitalist service with CHF exacerbation, acute hypoxic respiratory failure, possible aspiration pneumonia and is a COVID-19 PUI with consults to [facility] cardiology and infectious disease. 10/16: Patient COVID-19 PCR positive, given IVF, CVP measuring initiated, weaning levophed as tolerated. Started on remdesivir/vit c/vit d/ zinc. 10/17: Acute DVT noted in bilateral common femoral vein patient started on heparin drip, magnesium and potassium repleted, vent changes per [facility]. Started remdesivir yesterday. Hospitalist Physical - Constitutional Vitals: Temp Pulse Resp BP Pulse Ox 97.2 F L 80 22 93/60 100 10/17/21 12:00 10/17/21 12:09 10/17/21 08:30 10/17/21 12:09 10/17/21 12:09 General appearance: Present: other (Patient is sedated, on the ventilator) - EENT Eyes: Present: PERRL, EOM intact ENT: dentition normal - Neck Neck: Present: normal ROM - Respiratory Respiratory effort: normal Respiratory: bilateral: diminished - Cardiovascular Rhythm: regular Heart Sounds: Present: S1 & S2. Absent: systolic murmur, diastolic murmur - Extremities Extremities: no ischemia, pulses intact, pulses symmetrical, normal temperature, normal color Peripheral Pulses: within normal limits - Abdominal General gastrointestinal: soft, non-tender, non-distended, normal bowel sounds - Integumentary Integumentary: Present: warm, dry - Psychiatric Psychiatric: other (Sedated) - Neurologic Neurologic: other (Sedated) - Allied Health Allied health notes reviewed: nursing, RT, social work HEART Score - HEART Score Age: > 65 Risk factors: 1-2 risk factors Troponin: Troponin T 0.038 ng/mL (0.00-0.029) H 10/15/21 20:58 Troponin: 1-3x normal limit - Critical Actions Critical Actions: 4-6 pts:12-16.6% risk of adverse cardiac event. Should be admitted Results - Labs CBC & Chem 7: 10/17/21 06:02 10/17/21 06:02 Labs: Laboratory Last Values WBC 16.7 K/mm3 (4.5-11.0) H 10/17/21 06:02 RBC 3.16 M/mm3 (3.65-5.03) L 10/17/21 06:02 Hgb 7.6 gm/dl (10.1-14.3) L 10/17/21 06:02 Hct 24.2 % (30.3-42.9) L 10/17/21 06:02 MCV 77 fl (79-97) L 10/17/21 06:02 MCH 24 pg (28-32) L 10/17/21 06:02 MCHC 31 % (30-34) 10/17/21 06:02 RDW 17.7 % (13.2-15.2) H 10/17/21 06:02 Plt Count 283 K/mm3 (140-440) 10/17/21 06:02 Add Manual Diff Complete 10/17/21 06:02 Total Counted 100 10/17/21 06:02 Seg Neutrophils % Plastic Sheets Finishing Supervisor 10/17/21 06:02 Seg Neuts % (Manual) 95.0 % (40.0-70.0) H 10/17/21 06:02 Band Neutrophils % 0 % 10/17/21 06:02 Lymphocytes % (Manual) 1.0 % (13.4-35.0) L 10/17/21 06:02 Reactive Lymphs % (Man) 0 % 10/17/21 06:02 Monocytes % (Manual) 4.0 % (0.0-7.3) 10/17/21 06:02 Eosinophils % (Manual) 0 % (0.0-4.3) 10/17/21 06:02 Basophils % (Manual) 0 % (0.0-1.8) 10/17/21 06:02 Metamyelocytes % 0 % 10/17/21 06:02 Myelocytes % 0 % 10/17/21 06:02 Promyelocytes % 0 % 10/17/21 06:02 Blast Cells % 0 % 10/17/21 06:02 Nucleated RBC % Not Reportable 10/17/21 06:02 Seg Neutrophils # Man 15.9 K/mm3 (1.8-7.7) H 10/17/21 06:02 Band Neutrophils # 0.0 K/mm3 10/17/21 06:02 Lymphocytes # (Manual) 0.2 K/mm3 (1.2-5.4) L 10/17/21 06:02 Abs React Lymphs (Man) 0.0 K/mm3 10/17/21 06:02 Monocytes # (Manual) 0.7 K/mm3 (0.0-0.8) 10/17/21 06:02 Eosinophils # (Manual) 0.0 K/mm3 (0.0-0.4) 10/17/21 06:02 Basophils # (Manual) 0.0 K/mm3 (0.0-0.1) 10/17/21 06:02 Metamyelocytes # 0.0 K/mm3 10/17/21 06:02 Myelocytes # 0.0 K/mm3 10/17/21 06:02 Promyelocytes # 0.0 K/mm3 10/17/21 06:02 Blast Cells # 0.0 K/mm3 10/17/21 06:02 WBC Morphology Not Reportable 10/17/21 06:02 Hypersegmented Neuts Not Reportable 10/17/21 06:02 Hyposegmented Neuts Not Reportable 10/17/21 06:02 Hypogranular Neuts Not Reportable 10/17/21 06:02 Smudge Cells Not Reportable 10/17/21 06:02 Toxic Granulation Not Reportable 10/17/21 06:02 Toxic Vacuolation Not Reportable 10/17/21 06:02 Dohle Bodies Not Reportable 10/17/21 06:02 Pelger-Huet Anomaly Not Reportable 10/17/21 06:02 Girma Rods Not Reportable 10/17/21 06:02 Platelet Estimate Consistent w auto 10/17/21 06:02 Clumped Platelets Not Reportable 10/17/21 06:02 Plt Clumps, EDTA Not Reportable 10/17/21 06:02 Large Platelets Not Reportable 10/17/21 06:02 Giant Platelets Not Reportable 10/17/21 06:02 Platelet Satelliting Not Reportable 10/17/21 06:02 Plt Morphology Comment Not Reportable 10/17/21 06:02 RBC Morphology Not Reportable 10/17/21 06:02 Dimorphic RBCs Not Reportable 10/17/21 06:02 Polychromasia Not Reportable 10/17/21 06:02 Hypochromasia 1+ 10/17/21 06:02 Poikilocytosis 1+ 10/17/21 06:02 Anisocytosis 1+ 10/17/21 06:02 Microcytosis Not Reportable 10/17/21 06:02 Macrocytosis Not Reportable 10/17/21 06:02 Spherocytes Not Reportable 10/17/21 06:02 Pappenheimer Bodies Not Reportable 10/17/21 06:02 Sickle Cells Not Reportable 10/17/21 06:02 Target Cells 1+ 10/17/21 06:02 Tear Drop Cells Not Reportable 10/17/21 06:02 Ovalocytes Not Reportable 10/17/21 06:02 Helmet Cells Not Reportable 10/17/21 06:02 V[place] Bodies Not Reportable 10/17/21 06:02 [place] Rings Not Reportable 10/17/21 06:02 [place] Cells Not Reportable 10/17/21 06:02 Bite Cells Not Reportable 10/17/21 06:02 Crenated Cell Not Reportable 10/17/21 06:02 Elliptocytes Not Reportable 10/17/21 06:02 Acanthocytes (Spur) Not Reportable 10/17/21 06:02 Rouleaux Not Reportable 10/17/21 06:02 Hemoglobin C Crystals Not Reportable 10/17/21 06:02 Schistocytes Not Reportable 10/17/21 06:02 Malaria parasites Not Reportable 10/17/21 06:02 Brodie Bodies Not Reportable 10/17/21 06:02 Hem Pathologist Commnt No 10/17/21 06:02 PT 14.6 Sec. (12.2-14.9) 10/15/21 16:15 INR 1.03 (0.87-1.13) 10/15/21 16:15 APTT 38.0 Sec. (24.2-36.6) H 10/15/21 16:15 D-Dimer 7433.97 ng/mlDDU (0-234) H 10/15/21 16:15 ABG pH 7.490 (7.320-7.450) H 10/16/21 04:50 POC ABG pCO2 35.5 mmHg (32.0-48.0) 10/16/21 04:50 ABG pCO2 57.0 mm Hg 10/15/21 16:42 POC ABG pO2 101.9 mmHg (83-108) 10/16/21 04:50 ABG pO2 75.4 mm Hg (80.0-90.0) L 10/15/21 16:42 POC ABG HCO3 26.4 10/16/21 04:50 ABG HCO3 30.6 mmol/L (20.0-26.0) H 10/15/21 16:42 ABG O2 Saturation 98.0 (0-100) 10/16/21 04:50 ABG O2 Content 14.3 (0.0-44) 10/15/21 16:42 POC ABG Base Excess 3.1 10/16/21 04:50 ABG Base Excess 3.9 mmol/L (-2.0-3.0) H 10/15/21 16:42 ABG Hemoglobin 9.7 (12.0-17.5) L 10/16/21 04:50 ABG Oxyhemoglobin 97.2 (94-98) 10/16/21 04:50 ABG Carboxyhemoglobin 0.8 % (0.0-5.0) 10/15/21 16:42 ABG Methemoglobin 0.3 (0.0-1.5) 10/16/21 04:50 ABG Sodium 128.9 mmol/L (136.0-145.0) L 10/16/21 04:50 ABG Potassium 3.8 mmol/L (3.40-4.50) 10/16/21 04:50 ABG Chloride 96.0 mmol/L (98-107) L 10/16/21 04:50 ABG Glucose 235 mg/dL (65-95) H 10/16/21 04:50 Oxyhemoglobin 93.1 % (95.0-99.0) L 10/15/21 16:42 Carboxyhemoglobin 0.5 (0.5-1.5) 10/16/21 04:50 FiO2 100 % 10/15/21 16:42 FiO2 % 75.0 10/16/21 04:50 Sodium 139 mmol/L (137-145) 10/17/21 06:02 Potassium 3.5 mmol/L (3.6-5.0) L 10/17/21 06:02 Chloride 101.4 mmol/L (98-107) 10/17/21 06:02 Carbon Dioxide 22 mmol/L (22-30) 10/17/21 06:02 Anion Gap 19 mmol/L 10/17/21 06:02 BUN 32 mg/dL (7-17) H 10/17/21 06:02 Creatinine 0.8 mg/dL (0.6-1.2) 10/17/21 06:02 Estimated GFR > 60 ml/min 10/17/21 06:02 BUN/Creatinine Ratio 40 % 10/17/21 06:02 Glucose 216 mg/dL (65-100) H 10/17/21 06:02 POC Glucose 262 mg/dL (70-105) H 10/17/21 12:38 Lactic Acid 1.20 mmol/L (0.7-2.0) 10/17/21 06:02 Calcium 8.4 mg/dL (8.4-10.2) 10/17/21 06:02 Phosphorus 3.80 mg/dL (2.5-4.5) D 10/17/21 06:02 Magnesium 1.40 mg/dL (1.7-2.3) L 10/17/21 06:02 Ferritin 428.7 ng/mL (10.0-200.0) H 10/17/21 06:02 Total Bilirubin 0.40 mg/dL (0.1-1.2) 10/17/21 06:02 Direct Bilirubin 0.3 mg/dL (0-0.2) H 10/17/21 06:02 Indirect Bilirubin 0.1 mg/dL 10/17/21 06:02 AST 26 units/L (5-40) 10/17/21 06:02 ALT 15 units/L (7-56) 10/17/21 06:02 Alkaline Phosphatase 60 units/L (35-129) 10/17/21 06:02 Ammonia 38.0 umol/L (25-60) 10/15/21 16:15 Lactate Dehydrogenase 257 units/L (91-180) H 10/17/21 06:02 Troponin T 0.038 ng/mL (0.00-0.029) H 10/15/21 20:58 C-Reactive Protein 28.50 mg/dL (0.00-1.30) H 10/17/21 06:02 NT-Pro-B Natriuret Pep 6606 pg/mL (0-900) H 10/15/21 16:15 Total Protein 5.8 g/dL (6.3-8.2) L 10/17/21 06:02 Albumin 2.3 g/dL (3.9-5) L 10/17/21 06:02 Albumin/Globulin Ratio 0.7 % 10/17/21 06:02 Triglycerides 122 mg/dL (2-149) 10/15/21 18:00 Cholesterol 99 mg/dL (50-199) 10/15/21 18:00 LDL Cholesterol Direct 46 mg/dL (50-130) L 10/15/21 18:00 HDL Cholesterol 25 mg/dL (40-59) L 10/15/21 18:00 Cholesterol/HDL Ratio 3.96 % 10/15/21 18:00 Lipase 19 units/L (13-60) 10/15/21 16:15 Procalcitonin 39.51 ng/mL (<0.15) 10/16/21 23:31 Arterial Blood Glucose 235 mg/dL (65-95) H 10/16/21 04:50 Urine Color Yellow (Yellow) 10/15/21 Unknown Urine Turbidity Cloudy (Clear) 10/15/21 Unknown Urine pH 5.0 (5.0-7.0) 10/15/21 Unknown Ur Specific [place] 1.016 (1.003-1.030) 10/15/21 Unknown Urine Protein >500 mg/dL (Negative) 10/15/21 Unknown Urine Glucose (UA) 50 mg/dL (Negative) 10/15/21 Unknown Urine Ketones Neg mg/dL (Negative) 10/15/21 Unknown Urine Blood Neg (Negative) 10/15/21 Unknown Urine Nitrite Neg (Negative) 10/15/21 Unknown Urine Bilirubin Neg (Negative) 10/15/21 Unknown Urine Urobilinogen < 2.0 mg/dL (<2.0) 10/15/21 Unknown Ur Leukocyte Esterase Neg (Negative) 10/15/21 Unknown Urine WBC (Auto) 5.0 /HPF (0.0-6.0) 10/15/21 Unknown Urine RBC (Auto) 2.0 /HPF (0.0-6.0) 10/15/21 Unknown U Epithel Cells (Auto) 2.0 /HPF (0-13.0) 10/15/21 Unknown Urine Bacteria (Auto) 1+ /HPF (Negative) 10/15/21 Unknown Calcium Oxalate Crystal 1+ 10/15/21 Unknown Amorphous Crystals 3+ 10/15/21 Unknown Urine Mucus Few /HPF 10/15/21 Unknown Urine Yeast (Budding) 1+ /HPF 10/15/21 Unknown Salicylates < 0.3 mg/dL (2.8-20.0) L 10/15/21 16:15 Urine Opiates Screen Negative 10/15/21 Unknown Urine Methadone Screen Negative 10/15/21 Unknown Acetaminophen 5.0 ug/mL (10.0-30.0) L 10/15/21 16:15 Ur Barbiturates Screen Negative 10/15/21 Unknown Ur Phencyclidine Scrn Negative 10/15/21 Unknown Ur Amphetamines Screen Negative 10/15/21 Unknown U Benzodiazepines Scrn Negative 10/15/21 Unknown Urine Cocaine Screen Negative 10/15/21 Unknown U Marijuana (THC) Screen Negative 10/15/21 Unknown Drugs of Abuse Note Disclamer 10/15/21 Unknown Coronavirus (PCR) Positive (Negative) A 10/16/21 09:36 Microbiology: Microbiology 10/15/21 16:35 Tracheal Aspirate Sputum Culture - Preliminary 10/15/21 16:15 Peripheral/Venous Blood Culture - Preliminary NO GROWTH AFTER 24 HOURS 10/15/21 16:15 Peripheral/Venous Blood Culture - Preliminary NO GROWTH AFTER 24 HOURS Magallanes/IV: Voiding Method Indwelling Catheter Active Medications - Current Medications Current Medications: Generic Name Dose Route Start Last Admin Trade Name Freq PRN Reason Stop Dose Admin Acetaminophen 650 mg 10/16/21 00:57 10/16/21 21:51 Acetaminophen 325 Mg Tab PO 650 mg Q4H PRN Administration Pain MILD(1-3)/Fever >100.5/KEYS Lipase/Protease/Amylase 1 each 10/16/21 01:07 Lipase 10,500/Protease 25,000/Amylase 43,750 (Units) Dr Schuler FEEDTUBE PRN PRN For Clogged Feeding Tube Ascorbic Acid 500 mg 10/17/21 10:00 10/17/21 10:53 Ascorbic Acid 500 Mg Tab PO 500 mg QDAY MUNA Administration Cholecalciferol 5,000 unit 10/17/21 10:00 10/17/21 10:54 Cholecalciferol (Vit D3) 5,000 Unit Tab PO 5,000 unit DAILY MUNA Administration Dexamethasone 8 mg 10/16/21 20:00 10/17/21 10:53 Dexamethasone 4 Mg Tab FEEDTUBE 10/25/21 10:01 8 mg QDAY MUNA Administration Famotidine 20 mg 10/17/21 22:00 Famotidine 20 Mg Tab FEEDTUBE BID MUNA Heparin Sodium (Porcine) 2,000 unit 10/17/21 14:00 Heparin 10,000 Units/10 Ml Vial IV Q6H PRN Anti-Xa Assay < 0.1 units/ml Propofol 1,000 mg in 100 mls @ 1.633 mls/hr 10/15/21 16:00 10/17/21 05:41 Diprivan 10 Mg/Ml IV 20 mcg/kg/min TITR MUNA 6.532 mls/hr Administration Protocol 5 MCG/KG/MIN NORepinephrine/NS 8 MG-250 ML 8 mg in 250 mls @ 3.75 mls/hr 10/15/21 18:00 10/17/21 03:13 Norepinephrine/Ns 8 Mg-250 Ml (Double Conc) IV 1 mcg/min TITRATE MUNA 1.875 mls/hr Administration Protocol 2 MCG/MIN Vancomycin HCl 750 mg/ Sodium 265 mls @ 166.667 mls/hr 10/16/21 18:00 10/16/21 21:51 Chloride IV 166.667 mls/hr Q24H MUNA Administration Cefepime HCl 2 gm in 100 mls @ 200 mls/hr 10/16/21 13:00 10/17/21 14:27 Cefepime/Ns 2 Gm/100 Ml IV 200 mls/hr Q12H MUNA Administration Protocol Sodium Chloride 1,000 mls @ 75 mls/hr 10/16/21 14:15 10/17/21 08:48 Nacl 0.9% 1000 Ml IV 10/18/21 03:34 75 mls/hr DIRECT MUNA Administration REMDESIVIR 100 mg/ Sodium 250 mls @ 500 mls/hr 10/17/21 21:00 Chloride IV 10/20/21 21:29 Q24HR@2100 [facility] Heparin Sodium/Sodium Chloride 25,000 unit in 500 mls @ 16 mls/hr 10/17/21 14:00 10/17/21 14:26 Heparin/ 0.45% Nacl-25,000 Unit/500 Ml IV 800 units/hr TITR MUNA 16 mls/hr Administration Protocol 800 UNITS/HR Insulin Glargine 10 units 10/17/21 22:00 Insulin Glargine 100 Units/Ml SUB-Q QHS [facility] Insulin Human Lispro 0 unit 10/16/21 09:00 10/17/21 14:26 Insulin Lispro 100 Unit/Ml SUB-Q 6 unit Q6HR [facility] Administration Protocol Levetiracetam 500 mg 10/16/21 11:00 10/17/21 10:54 Levetiracetam 500 Mg/5 Ml Oral Liqd PO 500 mg BID MUNA Administration Metoclopramide HCl 10 mg 10/16/21 01:02 Metoclopramide 10 Mg/2 Ml Inj IV Q6H PRN Nausea And Vomiting Ondansetron HCl 4 mg 10/16/21 00:57 Ondansetron 4 Mg/2 Ml Inj IV Q3H PRN Nausea And Vomiting Senna/Docusate Sodium 1 tab 10/16/21 22:00 10/16/21 21:46 Sennosides/Docusate Sodium 8.6/50 Mg Tab FEEDTUBE 1 tab QHS MUNA Administration Simple Syrup 15 ml 10/16/21 01:07 Simple Syrup 15 Ml FEEDTUBE PRN PRN Hypoglycemia Simple Syrup 30 ml 10/16/21 01:07 Simple Syrup 15 Ml FEEDTUBE PRN PRN Hypoglycemia Sodium Bicarbonate 325 mg 10/16/21 01:07 Sodium Bicarbonate 325 Mg Tab FEEDTUBE PRN PRN For Clogged Feeding Tube Sodium Chloride 10 ml 10/16/21 01:00 10/16/21 21:49 Sodium Chloride 0.9% 10 Ml Flush Syringe IV 10 ml BID MUNA Administration Sodium Chloride 10 ml 10/16/21 00:57 Sodium Chloride 0.9% 10 Ml Flush Syringe IV PRN PRN LINE FLUSH Sodium Chloride 5 ml 10/16/21 13:57 Sodium Chloride 0.9% 1000 Ml Iv Soln IV PRN PRN CVP Sodium Chloride 50 ml 10/16/21 21:00 10/16/21 21:46 Sodium Chloride 0.9% 50 Ml Ivpb IV 10/20/21 21:01 50 ml Q24HR@2100 MUNA Administration Zinc Sulfate 220 mg 10/16/21 22:00 10/17/21 10:54 Zinc Sulfate 220 Mg Cap PO 220 mg BID MUNA Administration Nutrition/Malnutrition Assess - Dietary Evaluation Nutrition/Malnutrition Findings: Nutrition Notes Start: 10/16/21 10:33 Freq: Status: Active Protocol: Document 10/16/21 10:33 ANTIONE (Rec: 10/16/21 11:06 ANTIONE [id number]) Nutrition Notes Need for Assessment generated from: Order,MST Initial or Follow up Assessment Current Diagnosis Diabetes,Sepsis,Hypertension, Heart Failure,Respiratory Failure,Stroke Other Pertinent Diagnosis Aspiration bilateral pneumonia , COVID-19 pui, Chronic anemia /malnutrition.. Current Diet NPO. TF-Promote @ 41 ml/hr ( from L 10/16). Labs/Tests 10/16: Na 132, Cl 93.2, BUN 28 , Glu 225, Ca 8.3, Mg 1.3. Pertinent Medications 10/16: Propofol 1000 mg in 100 ml @ 1.633 ml/hr (43 Kcal), others nutritionally unremarkable. Height 5 ft 5 in Weight 55 kg [place] Body Weight (kg) 56.81 BMI 20.1 Intake Prior to Admission Good Weight change and time frame Pt is unsure if loss body weight [employer]. Weight Status Appropriate Subjective/Other Information RD consult for malnutrition risk assessment and write/ manage TF. Pt is on mechanical ventilation. Pt is COVID-19 pui. Percent of energy/protein needs met: Pt currently on NPO. Prescribed Promote @ 41 ml/hr provides for energy/protein needs (985 Kcal/62 g) during LOS, plus 43 Kcal from propofol. Burn Absent Trauma Absent GI Symptoms None Food Allergy No Skin Integrity/Comment Clear, warm, dry. Current % PO Other Minimum of two criteria No #1 Nutrition Diagnosis Inadequate oral intake Etiology Pt on mechanical ventilation. As Evidenced by Signs and Symptoms Pt is currently on NPO. Is patient on ventilator? Yes Is Patient Ambulatory and/or Out of Bed No REE-([facility]-confined to bed) 1190.748 Kcal/Kg value to use for calculation 18 Approximate Energy Requirements Using 990 kcal/Kg Calculation Used for Recommendations Kcal/kg Additional Notes Protein: 1.2-2 g/Kg; 66-110 g/ day. Fluids: 1 ml/Kcal, or as per MD. Nutrition Intervention Nutrition Support: Start Promote @ 41 ml/hr. Flush: 30 ml water Q 4 hr, or as per MD. Kcal 985 Protein (gm) 62 Carbohydrates (gm) 128 Fat (gm) 26 Fluid (mL) 826 Fiber (gm) 0 % RDI: 100% Kcal; 93% AA. Goal #1 Provide at least 75% of energy /protein needs through Enteral Feeding during LOS. Follow-Up By: 10/18/21 Additional Comments Continue monitoring TF tolerance and BM.
--- NOTE | 2021-10-17 15:44 | Vascular Lab Report ---
DUPLEX DOPPLER LOWER EXTREMITY VEINS, BILATERAL INDICATION: r/o dvt, elevated ddimer. TECHNIQUE: Duplex doppler imaging was performed through the veins of both lower extremities using ve nous compression and other maneuvers. COMPARISON: No relevant prior imaging study available. FINDINGS: Right Common femoral vein: Positive. Right Superficial femoral vein: Positive. Right Popliteal vein: Negative. Right Calf veins: Negative. Left Common femoral vein: Positive. Left Superficial femoral vein: Negative. Left Popliteal vein: Negative. Left Calf veins: Negative. Additional findings: None. IMPRESSION: Positive for acute appearing DVTs in the right common femoral vein, right superficial femoral vein a nd left common femoral vein. Nurse practitioner was informed of these findings at 1335 hours. Signer Name: Eulalio Callahan Jr, MD Signed: 10/17/2021 3:39 PM Workstation Name: [id number]
[2021-10-17] MEDS: FAMOTIDINE 20 MG TAB FEEDTUBE SCH (21:49)
[2021-10-17] MEDS: SENNOSIDES/DOCUSATE SODIUM 8.6/50 MG TAB FEEDTUBE SCH (21:50)
[2021-10-17] MEDS: REMDESIVIR 100 MG in SODIUM CHLORIDE 0.9% 250ML 250 ML IV SCH (21:51)
[2021-10-17] MEDS: SODIUM CHLORIDE 0.9% 50 ML IVPB IV SCH (21:51)
[2021-10-17] MEDS: VANCOMYCIN 750 MG in SODIUM CHLORIDE 0.9% 250ML 250 ML IV SCH (21:51)
[2021-10-17] MEDS ORDERED: INSULIN GLARGINE 100 UNITS/ML SUB-Q SCH (22:00)
[2021-10-18] MEDS: INSULIN LISPRO 100 UNIT/ML SUB-Q SCH ×4 (00:28→19:45)
[2021-10-18] MEDS: CEFEPIME/NS 2 GM/100 ML 2 GM/100 ML BAG IV SCH ×2 (03:42→15:34)
[2021-10-18 05:43] LABS: Hematocrit 23.5 % (30.3-42.9); Hemoglobin 7.3 gm/dl (10.1-14.3); Mean Corpuscular HGB Conc 31 % (30-34); Mean Corpuscular Volume 78 fl (79-97); Platelet Count 285 K/mm3 (140-440); Red Blood Count 3.03 M/mm3 (3.65-5.03); Red Cell Distribution Width 17.9 % (13.2-15.2)
[2021-10-18 06:05] LABS: Alanine Aminotransferase 14 units/L (7-56); Albumin 2.2 g/dL (3.9-5); BUN/Creatinine Ratio 44; Blood Urea Nitrogen 44 mg/dL (7-17); Calcium 7.8 mg/dL (8.4-10.2); Hemolysis Index 0
[2021-10-18] MEDS: ASCORBIC ACID 500 MG TAB PO SCH (10:39)
[2021-10-18] MEDS: CHOLECALCIFEROL (VIT D3) 5,000 UNIT TAB PO SCH (10:39)
[2021-10-18] MEDS: FAMOTIDINE 20 MG TAB FEEDTUBE SCH ×2 (10:39→22:25)
[2021-10-18] MEDS: ZINC SULFATE 220 MG CAP PO SCH ×2 (10:39→22:25)
[2021-10-18] MEDS: levETIRAcetam 500 MG/5 ML ORAL LIQD PO SCH ×2 (10:40→22:25)
[2021-10-18] MEDS: DEXAMETHASONE 4 MG TAB FEEDTUBE SCH (10:40)
--- NOTE | 2021-10-18 11:51 | Progress Note ---
Assessment and Plan Cultures: 10/15/2021 blood culture: no growth COVID-19 PCR: Positive 10/15/2021 sputum culture: In process A/P: 86-year-old female with hypertension, prior CVA, diabetes, CHF, indwelling cardiac device admitted with resp distress: #Severe sepsis with septic shock, likely secondary to bilateral pneumonia with possible aspiration pneumonia. Labs showed leukocytosis with WBC 17.2, D-dimer 7433, lactate of 5.6, proBNP 6606, CRP 25.9, ferritin 418.8. UA with no pyuria. Procalcitonin 39.5 #COVID-19 pneumonia: COVID PCR positive. #Acute hypoxic respiratory failure: on the vent #CHF, indwelling cardiac device: BNP elevated. #Prior CVA Recs: -continue steroids and Remdesivir for COVID-19 -Not a candidate for Actemra due to very high white count and procalcitonin with concern for superadded bacterial infection -continue IV cefepime (dose reduced to 2 gm q12 hrs), IV vancomycin -MRSA nasal PCR ordered, if negative, can discontinue Vancomycin -Follow-up sputum culture -guarded prognosis Yogi Maher MD, FACP, [facility] ([facility]) O: [phone] F: [phone] Subjective Date of service: 10/18/21 Principal diagnosis: AHRF; Pneumonia; Septic shock; COVID-19 infection; CHF; DVT; NSTEMI Interval history: No fever. Remains on the vent. On low dose pressors. Objective - Exam Narrative Exam: Physical Exam: Constitutional: sedated, intubated, on the vent Head, Ears, Nose: Normocephalic, atraumatic. External ears, nose normal Eyes: Conjunctivae/corneas clear. No icterus. No ptosis. Neck: intubated Oral: intubated Cardiovascular: S1, S2 + Respiratory: AE fair GI: Soft, bowel sounds + Musculoskeletal: No pedal edema, no cyanosis. Skin: No rash or abscess Hem/Lymphatic: No palpable cervical or supraclavicular nodes. No lymphangitis Psych: no agitation Neurological: sedated, intubated, on the vent, exam limited - Constitutional Vitals: Vital Signs Temp Pulse Resp BP Pulse Ox 96.3 F L 80 20 99/64 100 10/18/21 07:44 10/18/21 09:03 10/18/21 06:45 10/18/21 09:03 10/18/21 09:03 Temperature -Last 24 Hours Temperature 96.3 F Temperature 98.2 F Temperature 97.2 F - Labs CBC & Chem 7: 10/18/21 05:16 10/18/21 05:00 Labs: Abnormal lab results 10/17/21 10/17/21 10/17/21 Range/Units 12:38 17:35 18:20 WBC (4.5-11.0) K/mm3 RBC (3.65-5.03) M/mm3 Hgb (10.1-14.3) gm/dl Hct (30.3-42.9) % MCV (79-97) fl MCH (28-32) pg RDW (13.2-15.2) % D-Dimer (0-234) ng/mlDDU Heparin Anti-Xa Level (0.3-0.7) U.I./ml ABG pH (7.320-7.450) POC ABG pCO2 (32.0-48.0) mmHg ABG Hemoglobin (12.0-17.5) ABG Glucose (65-95) mg/dL BUN (7-17) mg/dL Glucose (65-100) mg/dL POC Glucose 262 H 230 H 215 H (70-105) mg/dL Calcium (8.4-10.2) mg/dL Magnesium (1.7-2.3) mg/dL Total Protein (6.3-8.2) g/dL Albumin (3.9-5) g/dL Arterial Blood Glucose (65-95) mg/dL 10/17/21 10/18/21 10/18/21 Range/Units 22:17 00:16 04:40 WBC (4.5-11.0) K/mm3 RBC (3.65-5.03) M/mm3 Hgb (10.1-14.3) gm/dl Hct (30.3-42.9) % MCV (79-97) fl MCH (28-32) pg RDW (13.2-15.2) % D-Dimer 2424.98 H (0-234) ng/mlDDU Heparin Anti-Xa Level 0.24 L (0.3-0.7) U.I./ml ABG pH (7.320-7.450) POC ABG pCO2 (32.0-48.0) mmHg ABG Hemoglobin (12.0-17.5) ABG Glucose (65-95) mg/dL BUN (7-17) mg/dL Glucose (65-100) mg/dL POC Glucose 247 H (70-105) mg/dL Calcium (8.4-10.2) mg/dL Magnesium (1.7-2.3) mg/dL Total Protein (6.3-8.2) g/dL Albumin (3.9-5) g/dL Arterial Blood Glucose (65-95) mg/dL 10/18/21 10/18/21 10/18/21 Range/Units 04:40 05:00 05:16 WBC 16.4 H (4.5-11.0) K/mm3 RBC 3.03 L (3.65-5.03) M/mm3 Hgb 7.3 L (10.1-14.3) gm/dl Hct 23.5 L (30.3-42.9) % MCV 78 L (79-97) fl MCH 24 L (28-32) pg RDW 17.9 H (13.2-15.2) % D-Dimer (0-234) ng/mlDDU Heparin Anti-Xa Level (0.3-0.7) U.I./ml ABG pH (7.320-7.450) POC ABG pCO2 (32.0-48.0) mmHg ABG Hemoglobin (12.0-17.5) ABG Glucose (65-95) mg/dL BUN 44 H (7-17) mg/dL Glucose 286 H (65-100) mg/dL POC Glucose (70-105) mg/dL Calcium 7.8 L (8.4-10.2) mg/dL Magnesium 2.60 H (1.7-2.3) mg/dL Total Protein 5.7 L (6.3-8.2) g/dL Albumin 2.2 L (3.9-5) g/dL Arterial Blood Glucose (65-95) mg/dL 10/18/21 10/18/21 10/18/21 Range/Units 05:39 07:29 09:00 WBC (4.5-11.0) K/mm3 RBC (3.65-5.03) M/mm3 Hgb (10.1-14.3) gm/dl Hct (30.3-42.9) % MCV (79-97) fl MCH (28-32) pg RDW (13.2-15.2) % D-Dimer (0-234) ng/mlDDU Heparin Anti-Xa Level (0.3-0.7) U.I./ml ABG pH 7.282 L (7.320-7.450) POC ABG pCO2 48.1 H (32.0-48.0) mmHg ABG Hemoglobin 7.6 L (12.0-17.5) ABG Glucose 252 H (65-95) mg/dL BUN (7-17) mg/dL Glucose (65-100) mg/dL POC Glucose 281 H 274 H (70-105) mg/dL Calcium (8.4-10.2) mg/dL Magnesium (1.7-2.3) mg/dL Total Protein (6.3-8.2) g/dL Albumin (3.9-5) g/dL Arterial Blood Glucose 252 H (65-95) mg/dL 10/18/21 Range/Units 11:27 WBC (4.5-11.0) K/mm3 RBC (3.65-5.03) M/mm3 Hgb (10.1-14.3) gm/dl Hct (30.3-42.9) % MCV (79-97) fl MCH (28-32) pg RDW (13.2-15.2) % D-Dimer (0-234) ng/mlDDU Heparin Anti-Xa Level (0.3-0.7) U.I./ml ABG pH (7.320-7.450) POC ABG pCO2 (32.0-48.0) mmHg ABG Hemoglobin (12.0-17.5) ABG Glucose (65-95) mg/dL BUN (7-17) mg/dL Glucose (65-100) mg/dL POC Glucose 219 H (70-105) mg/dL Calcium (8.4-10.2) mg/dL Magnesium (1.7-2.3) mg/dL Total Protein (6.3-8.2) g/dL Albumin (3.9-5) g/dL Arterial Blood Glucose (65-95) mg/dL
--- NOTE | 2021-10-18 12:37 | Progress Note ---
Assessment and Plan Acute hypoxemic respiratory failure on MVS Aspiration pneumonia Septic shock COVID-19 infection DVT CHF H/O CVA Adult FTT Leukocytosis Anemia that is microcytic Lactic acidosis Hypomagnesemia NSTEMI Oropharyngeal dysphagia Dementia - will accept permissive hypercapnmia; continue current vent settings - weaned FiO2 to 40% - continue IV Heparin P.E. protocol - follow H&H - wean Levophed for target MAP > 65 mmHg - continue care as below otherwise; - Daily SAT and SBT assessment as tolerated - continue to wean supplemental oxygen for target O2 sat's > 90% acutely - VAP bundle addressed - continue lung protective strategies - continue bronchodilators with pulmonary hygiene per RT - wean per pulmonary driven protocols otherwise - sedation prn for target RASS 0 to -1 - continue to avoid nephrotoxins, renally dose all medications - continue mobility protocols to prevent pressure ulcers - PT/OT as tolerated - Wound care per RN/WCT - continue accuchecks with glycemic control per SSI (While critically ill target blood glucose of 140-180 mg/dL; avoid hypoglycemia) - home oxygen evaluation at discharge - GI & VTE prophylaxis - Flu & pneumovax per protocol - continue other care per attending / other consultants - prn analgesia per pain score COVID SPECIFIC INTERVENTIONS - Remdesivir as per ID/Pulmonary developed protocols (Receiving) - continue systemic steroids for severe COVID-19 infection empirically (Dexamethasone) - follow repeat COVID tests results - zinc and vitamin C supplementation - Monitor inflammatory markers per facility protocol - ferritin, Ddimer, CRP - therapeutic anticoagulation per system Protocol based on d-dimer and clinical considerations (on IV Heparin re: DVT) - Contact and airborne isolation .... Re-evaluate in am & prn CONDITION: CRITICAL PROGNOSIS: GUARDED CODE STATUS: FULL CODE The high probability of a clinically significant, sudden or life-threatening deterioration of the [respiratory, cardiovascular, hematologic & neurologic] system(s) required my full and direct attention, intervention and personal management. The aggregate critical care time was [35] minutes without overlap. Time includes spent on; [x] Data Review and interpretation [x] Patient assessment and monitoring of vital signs [x] Documentation [x] Medication orders and management Subjective Date of service: 10/18/21 Principal diagnosis: AHRF; Pneumonia; Septic shock; COVID-19 infection; CHF; DVT; NSTEMI Interval history: Patient is seen today for: AHRF; Aspiration pneumonia; Septic shock; COVID-19 infection; CHF; DVT; NSTEMI Seen and examined at bedside; 24hour events reviewed; nursing and respiratory care staff consulted; no adverse overnight events reported to me; resting peacefully in bed; dopplers positive for acute DVT's yesterday; remains on Levophed and dose increased; no new issues otherwise Objective Vital Signs - 12hr 10/18/21 10/18/21 10/18/21 00:45 01:00 01:15 Temperature Pulse Rate 80 79 80 Pulse Rate [ From Monitor] Respiratory 18 19 19 Rate Blood Pressure 93/58 96/57 93/56 O2 Sat by Pulse 96 98 Oximetry 10/18/21 10/18/21 10/18/21 01:30 01:45 02:00 Temperature Pulse Rate 80 80 79 Pulse Rate [ From Monitor] Respiratory 19 18 16 Rate Blood Pressure 90/55 88/55 103/66 O2 Sat by Pulse Oximetry 10/18/21 10/18/21 10/18/21 02:15 02:30 02:45 Temperature Pulse Rate 80 80 80 Pulse Rate [ From Monitor] Respiratory 18 17 19 Rate Blood Pressure 95/59 90/60 93/59 O2 Sat by Pulse 94 Oximetry 10/18/21 10/18/21 10/18/21 03:00 03:15 03:30 Temperature Pulse Rate 80 80 80 Pulse Rate [ From Monitor] Respiratory 18 17 19 Rate Blood Pressure 89/57 97/64 89/55 O2 Sat by Pulse 95 Oximetry 10/18/21 10/18/21 10/18/21 03:45 04:00 04:15 Temperature 98.2 F Pulse Rate 80 80 80 Pulse Rate [ 80 From Monitor] Respiratory 17 18 19 Rate Blood Pressure 94/59 91/57 89/55 O2 Sat by Pulse 98 96 Oximetry 10/18/21 10/18/21 10/18/21 04:24 04:30 04:45 Temperature Pulse Rate 80 80 80 Pulse Rate [ From Monitor] Respiratory 19 18 Rate Blood Pressure 89/55 96/59 93/55 O2 Sat by Pulse 98 96 Oximetry 10/18/21 10/18/21 10/18/21 05:00 05:15 05:30 Temperature Pulse Rate 80 80 79 Pulse Rate [ From Monitor] Respiratory 14 17 13 Rate Blood Pressure 97/60 94/61 99/62 O2 Sat by Pulse 99 Oximetry 10/18/21 10/18/21 10/18/21 05:45 06:00 06:15 Temperature Pulse Rate 80 80 80 Pulse Rate [ From Monitor] Respiratory 18 16 16 Rate Blood Pressure 82/53 100/58 95/58 O2 Sat by Pulse 99 98 Oximetry 10/18/21 10/18/21 10/18/21 06:30 06:45 07:44 Temperature 96.3 F L Pulse Rate 80 80 Pulse Rate [ From Monitor] Respiratory 19 20 Rate Blood Pressure 85/54 80/53 O2 Sat by Pulse 96 Oximetry 10/18/21 10/18/21 09:03 11:59 Temperature 96.3 F L Pulse Rate 80 Pulse Rate [ From Monitor] Respiratory Rate Blood Pressure 99/64 O2 Sat by Pulse 100 Oximetry Constitutional: no acute distress, other (elderly and chronically ill looking female with mildly increased respiratory effort at rest) Eyes: non-icteric ENT: oropharynx dry, other (ETT 23 cm JESSICA) Neck: supple, no lymphadenopathy, no JVD Effort: mildly labored Ascultation: Bilateral: diminished breath sounds, rhonchi Percussion: Bilateral: not dull Cardiovascular: regular rate and rhythm Gastrointestinal: normoactive bowel sounds, soft, non-tender, non-distended, other (PEG tube) Integumentary: rash (xeroderma type) Neurologic: pupils equal and round, unable to assess Psychiatric: other (unable to assess re: AMS) CBC and BMP: 10/19/21 02:40 10/19/21 02:40 ABG, PT/INR, D-dimer: ABG ABG pH 7.282 (7.320-7.450) L 10/18/21 09:00 POC ABG pCO2 48.1 mmHg (32.0-48.0) H 10/18/21 09:00 ABG pCO2 57.0 mm Hg 10/15/21 16:42 POC ABG pO2 103.0 mmHg (83-108) 10/18/21 09:00 ABG pO2 75.4 mm Hg (80.0-90.0) L 10/15/21 16:42 POC ABG HCO3 22.2 10/18/21 09:00 ABG O2 Saturation 97.0 (0-100) 10/18/21 09:00 PT/INR, D-dimer PT 14.6 Sec. (12.2-14.9) 10/15/21 16:15 INR 1.03 (0.87-1.13) 10/15/21 16:15 D-Dimer 2424.98 ng/mlDDU (0-234) H 10/18/21 04:40 Abnormal lab findings: Abnormal Labs 10/15/21 10/15/21 10/15/21 16:15 16:15 16:15 WBC 17.2 H RBC Hgb 9.0 L Hct 29.7 L MCV 78 L MCH 24 L RDW 17.5 H Seg Neuts % (Manual) 88.0 H Lymphocytes % (Manual) 3.0 L Seg Neutrophils # Man 15.1 H Lymphocytes # (Manual) 0.5 L APTT 38.0 H D-Dimer 7433.97 H Heparin Anti-Xa Level ABG pH POC ABG pCO2 ABG pO2 ABG HCO3 ABG O2 Saturation ABG Base Excess ABG Hemoglobin ABG Sodium ABG Chloride ABG Glucose Oxyhemoglobin Sodium Potassium Chloride BUN Glucose POC Glucose Lactic Acid 5.60 H* Calcium Phosphorus Magnesium Ferritin Direct Bilirubin Lactate Dehydrogenase Troponin T C-Reactive Protein NT-Pro-B Natriuret Pep Total Protein Albumin LDL Cholesterol Direct HDL Cholesterol Arterial Blood Glucose Salicylates Acetaminophen Coronavirus (PCR) 10/15/21 10/15/21 10/15/21 16:15 16:15 16:15 WBC RBC Hgb Hct MCV MCH RDW Seg Neuts % (Manual) Lymphocytes % (Manual) Seg Neutrophils # Man Lymphocytes # (Manual) APTT D-Dimer Heparin Anti-Xa Level ABG pH POC ABG pCO2 ABG pO2 ABG HCO3 ABG O2 Saturation ABG Base Excess ABG Hemoglobin ABG Sodium ABG Chloride ABG Glucose Oxyhemoglobin Sodium 134 L Potassium Chloride 89.6 L BUN 27 H Glucose 234 H POC Glucose Lactic Acid Calcium Phosphorus Magnesium 1.40 L Ferritin Direct Bilirubin 0.3 H Lactate Dehydrogenase Troponin T C-Reactive Protein NT-Pro-B Natriuret Pep 6606 H Total Protein 6.2 L Albumin 3.1 L LDL Cholesterol Direct HDL Cholesterol Arterial Blood Glucose Salicylates < 0.3 L Acetaminophen 5.0 L Coronavirus (PCR) 10/15/21 10/15/21 10/15/21 16:15 16:15 16:15 WBC RBC Hgb Hct MCV MCH RDW Seg Neuts % (Manual) Lymphocytes % (Manual) Seg Neutrophils # Man Lymphocytes # (Manual) APTT D-Dimer Heparin Anti-Xa Level ABG pH POC ABG pCO2 ABG pO2 ABG HCO3 ABG O2 Saturation ABG Base Excess ABG Hemoglobin ABG Sodium ABG Chloride ABG Glucose Oxyhemoglobin Sodium Potassium Chloride BUN Glucose 221 H POC Glucose Lactic Acid Calcium Phosphorus Magnesium Ferritin 418.8 H 421.6 H Direct Bilirubin Lactate Dehydrogenase 233 H Troponin T C-Reactive Protein 25.90 H NT-Pro-B Natriuret Pep Total Protein Albumin LDL Cholesterol Direct HDL Cholesterol Arterial Blood Glucose Salicylates Acetaminophen Coronavirus (PCR) 10/15/21 10/15/21 10/15/21 16:42 18:00 18:00 WBC RBC Hgb Hct MCV MCH RDW Seg Neuts % (Manual) Lymphocytes % (Manual) Seg Neutrophils # Man Lymphocytes # (Manual) APTT D-Dimer Heparin Anti-Xa Level ABG pH 7.348 L POC ABG pCO2 ABG pO2 75.4 L ABG HCO3 30.6 H ABG O2 Saturation 94.3 L ABG Base Excess 3.9 H ABG Hemoglobin 10.9 L ABG Sodium ABG Chloride ABG Glucose Oxyhemoglobin 93.1 L Sodium Potassium Chloride BUN Glucose POC Glucose Lactic Acid 3.10 H* Calcium Phosphorus Magnesium Ferritin Direct Bilirubin Lactate Dehydrogenase Troponin T 0.036 H C-Reactive Protein NT-Pro-B Natriuret Pep Total Protein Albumin LDL Cholesterol Direct 46 L HDL Cholesterol 25 L Arterial Blood Glucose Salicylates Acetaminophen Coronavirus (PCR) 10/15/21 10/16/21 10/16/21 20:58 01:55 04:50 WBC RBC Hgb Hct MCV MCH RDW Seg Neuts % (Manual) Lymphocytes % (Manual) Seg Neutrophils # Man Lymphocytes # (Manual) APTT D-Dimer Heparin Anti-Xa Level ABG pH 7.490 H POC ABG pCO2 ABG pO2 ABG HCO3 ABG O2 Saturation ABG Base Excess ABG Hemoglobin 9.7 L ABG Sodium 128.9 L ABG Chloride 96.0 L ABG Glucose 235 H Oxyhemoglobin Sodium 135 L Potassium Chloride 94.9 L BUN 28 H Glucose 226 H POC Glucose Lactic Acid Calcium Phosphorus Magnesium Ferritin Direct Bilirubin Lactate Dehydrogenase Troponin T 0.038 H C-Reactive Protein NT-Pro-B Natriuret Pep Total Protein Albumin LDL Cholesterol Direct HDL Cholesterol Arterial Blood Glucose 235 H Salicylates Acetaminophen Coronavirus (PCR) 10/16/21 10/16/21 10/16/21 09:05 09:05 09:05 WBC 14.9 H RBC 3.20 L Hgb 7.6 L Hct 24.8 L MCV 77 L MCH 24 L RDW 17.5 H Seg Neuts % (Manual) Lymphocytes % (Manual) Seg Neutrophils # Man Lymphocytes # (Manual) APTT D-Dimer Heparin Anti-Xa Level ABG pH POC ABG pCO2 ABG pO2 ABG HCO3 ABG O2 Saturation ABG Base Excess ABG Hemoglobin ABG Sodium ABG Chloride ABG Glucose Oxyhemoglobin Sodium 132 L Potassium Chloride 93.2 L BUN 28 H Glucose 225 H POC Glucose Lactic Acid 2.30 H* Calcium 8.3 L Phosphorus Magnesium 1.30 L Ferritin Direct Bilirubin Lactate Dehydrogenase Troponin T C-Reactive Protein NT-Pro-B Natriuret Pep Total Protein 5.7 L Albumin 2.4 L LDL Cholesterol Direct HDL Cholesterol Arterial Blood Glucose Salicylates Acetaminophen Coronavirus (PCR) 10/16/21 10/16/21 10/16/21 09:05 09:36 12:24 WBC RBC Hgb Hct MCV MCH RDW Seg Neuts % (Manual) Lymphocytes % (Manual) Seg Neutrophils # Man Lymphocytes # (Manual) APTT D-Dimer Heparin Anti-Xa Level ABG pH POC ABG pCO2 ABG pO2 ABG HCO3 ABG O2 Saturation ABG Base Excess ABG Hemoglobin ABG Sodium ABG Chloride ABG Glucose Oxyhemoglobin Sodium Potassium Chloride BUN Glucose POC Glucose 187 H Lactic Acid Calcium Phosphorus 2.10 L Magnesium Ferritin Direct Bilirubin Lactate Dehydrogenase Troponin T C-Reactive Protein NT-Pro-B Natriuret Pep Total Protein Albumin LDL Cholesterol Direct HDL Cholesterol Arterial Blood Glucose Salicylates Acetaminophen Coronavirus (PCR) Positive A 10/16/21 10/16/21 10/16/21 17:19 21:00 23:31 WBC RBC Hgb Hct MCV MCH RDW Seg Neuts % (Manual) Lymphocytes % (Manual) Seg Neutrophils # Man Lymphocytes # (Manual) APTT D-Dimer Heparin Anti-Xa Level ABG pH POC ABG pCO2 ABG pO2 ABG HCO3 ABG O2 Saturation ABG Base Excess ABG Hemoglobin ABG Sodium ABG Chloride ABG Glucose Oxyhemoglobin Sodium Potassium Chloride BUN Glucose POC Glucose 128 H 132 H Lactic Acid Calcium Phosphorus Magnesium Ferritin Direct Bilirubin Lactate Dehydrogenase 216 H Troponin T C-Reactive Protein 26.90 H NT-Pro-B Natriuret Pep Total Protein Albumin LDL Cholesterol Direct HDL Cholesterol Arterial Blood Glucose Salicylates Acetaminophen Coronavirus (PCR) 10/16/21 10/17/21 10/17/21 23:31 06:02 06:02 WBC 16.7 H RBC 3.16 L Hgb 7.6 L Hct 24.2 L MCV 77 L MCH 24 L RDW 17.7 H Seg Neuts % (Manual) 95.0 H Lymphocytes % (Manual) 1.0 L Seg Neutrophils # Man 15.9 H Lymphocytes # (Manual) 0.2 L APTT D-Dimer Heparin Anti-Xa Level ABG pH POC ABG pCO2 ABG pO2 ABG HCO3 ABG O2 Saturation ABG Base Excess ABG Hemoglobin ABG Sodium ABG Chloride ABG Glucose Oxyhemoglobin Sodium Potassium Chloride BUN 32 H Glucose 163 H POC Glucose Lactic Acid Calcium 7.8 L Phosphorus Magnesium Ferritin 428.7 H Direct Bilirubin Lactate Dehydrogenase Troponin T C-Reactive Protein NT-Pro-B Natriuret Pep Total Protein 5.7 L Albumin 2.3 L LDL Cholesterol Direct HDL Cholesterol Arterial Blood Glucose Salicylates Acetaminophen Coronavirus (PCR) 10/17/21 10/17/21 10/17/21 06:02 06:02 06:21 WBC RBC Hgb Hct MCV MCH RDW Seg Neuts % (Manual) Lymphocytes % (Manual) Seg Neutrophils # Man Lymphocytes # (Manual) APTT D-Dimer Heparin Anti-Xa Level ABG pH POC ABG pCO2 ABG pO2 ABG HCO3 ABG O2 Saturation ABG Base Excess ABG Hemoglobin ABG Sodium ABG Chloride ABG Glucose Oxyhemoglobin Sodium Potassium 3.5 L Chloride BUN 32 H Glucose 216 H POC Glucose 219 H Lactic Acid Calcium Phosphorus Magnesium 1.40 L Ferritin Direct Bilirubin 0.3 H Lactate Dehydrogenase 257 H Troponin T C-Reactive Protein 28.50 H NT-Pro-B Natriuret Pep Total Protein 5.8 L Albumin 2.3 L LDL Cholesterol Direct HDL Cholesterol Arterial Blood Glucose Salicylates Acetaminophen Coronavirus (PCR) 10/17/21 10/17/21 10/17/21 08:35 12:38 17:35 WBC RBC Hgb Hct MCV MCH RDW Seg Neuts % (Manual) Lymphocytes % (Manual) Seg Neutrophils # Man Lymphocytes # (Manual) APTT D-Dimer Heparin Anti-Xa Level ABG pH POC ABG pCO2 ABG pO2 ABG HCO3 ABG O2 Saturation ABG Base Excess ABG Hemoglobin ABG Sodium ABG Chloride ABG Glucose Oxyhemoglobin Sodium Potassium Chloride BUN Glucose POC Glucose 216 H 262 H 230 H Lactic Acid Calcium Phosphorus Magnesium Ferritin Direct Bilirubin Lactate Dehydrogenase Troponin T C-Reactive Protein NT-Pro-B Natriuret Pep Total Protein Albumin LDL Cholesterol Direct HDL Cholesterol Arterial Blood Glucose Salicylates Acetaminophen Coronavirus (PCR) 10/17/21 10/17/21 10/18/21 18:20 22:17 00:16 WBC RBC Hgb Hct MCV MCH RDW Seg Neuts % (Manual) Lymphocytes % (Manual) Seg Neutrophils # Man Lymphocytes # (Manual) APTT D-Dimer Heparin Anti-Xa Level 0.24 L ABG pH POC ABG pCO2 ABG pO2 ABG HCO3 ABG O2 Saturation ABG Base Excess ABG Hemoglobin ABG Sodium ABG Chloride ABG Glucose Oxyhemoglobin Sodium Potassium Chloride BUN Glucose POC Glucose 215 H 247 H Lactic Acid Calcium Phosphorus Magnesium Ferritin Direct Bilirubin Lactate Dehydrogenase Troponin T C-Reactive Protein NT-Pro-B Natriuret Pep Total Protein Albumin LDL Cholesterol Direct HDL Cholesterol Arterial Blood Glucose Salicylates Acetaminophen Coronavirus (PCR) 10/18/21 10/18/21 10/18/21 04:40 04:40 05:00 WBC RBC Hgb Hct MCV MCH RDW Seg Neuts % (Manual) Lymphocytes % (Manual) Seg Neutrophils # Man Lymphocytes # (Manual) APTT D-Dimer 2424.98 H Heparin Anti-Xa Level ABG pH POC ABG pCO2 ABG pO2 ABG HCO3 ABG O2 Saturation ABG Base Excess ABG Hemoglobin ABG Sodium ABG Chloride ABG Glucose Oxyhemoglobin Sodium Potassium Chloride BUN 44 H Glucose 286 H POC Glucose Lactic Acid Calcium 7.8 L Phosphorus Magnesium 2.60 H Ferritin Direct Bilirubin Lactate Dehydrogenase Troponin T C-Reactive Protein NT-Pro-B Natriuret Pep Total Protein 5.7 L Albumin 2.2 L LDL Cholesterol Direct HDL Cholesterol Arterial Blood Glucose Salicylates Acetaminophen Coronavirus (PCR) 10/18/21 10/18/21 10/18/21 05:16 05:39 07:29 WBC 16.4 H RBC 3.03 L Hgb 7.3 L Hct 23.5 L MCV 78 L MCH 24 L RDW 17.9 H Seg Neuts % (Manual) Lymphocytes % (Manual) Seg Neutrophils # Man Lymphocytes # (Manual) APTT D-Dimer Heparin Anti-Xa Level ABG pH POC ABG pCO2 ABG pO2 ABG HCO3 ABG O2 Saturation ABG Base Excess ABG Hemoglobin ABG Sodium ABG Chloride ABG Glucose Oxyhemoglobin Sodium Potassium Chloride BUN Glucose POC Glucose 281 H 274 H Lactic Acid Calcium Phosphorus Magnesium Ferritin Direct Bilirubin Lactate Dehydrogenase Troponin T C-Reactive Protein NT-Pro-B Natriuret Pep Total Protein Albumin LDL Cholesterol Direct HDL Cholesterol Arterial Blood Glucose Salicylates Acetaminophen Coronavirus (PCR) 10/18/21 10/18/21 09:00 11:27 WBC RBC Hgb Hct MCV MCH RDW Seg Neuts % (Manual) Lymphocytes % (Manual) Seg Neutrophils # Man Lymphocytes # (Manual) APTT D-Dimer Heparin Anti-Xa Level ABG pH 7.282 L POC ABG pCO2 48.1 H ABG pO2 ABG HCO3 ABG O2 Saturation ABG Base Excess ABG Hemoglobin 7.6 L ABG Sodium ABG Chloride ABG Glucose 252 H Oxyhemoglobin Sodium Potassium Chloride BUN Glucose POC Glucose 219 H Lactic Acid Calcium Phosphorus Magnesium Ferritin Direct Bilirubin Lactate Dehydrogenase Troponin T C-Reactive Protein NT-Pro-B Natriuret Pep Total Protein Albumin LDL Cholesterol Direct HDL Cholesterol Arterial Blood Glucose 252 H Salicylates Acetaminophen Coronavirus (PCR) Chest x-ray: image reviewed (no new process) Allied health notes reviewed: nursing
[2021-10-18] MEDS ORDERED: SODIUM CHLORIDE 0.9% 500 ML 500 ML ONE ×2 (15:56→19:34)
[2021-10-18] MEDS ORDERED: SODIUM CHLORIDE 0.9% 500 ML 500 ML IV ONE (15:56)
--- NOTE | 2021-10-18 16:32 | Progress Note ---
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 A/P: Neuro: Sedated, h/o CVA, Alzheimer's, nonverbal at baseline, seizure disorder -Avoid delirium -Reorientation as needed -Continue home Keppra -Sedated with propofol -RASS goal 0 to -1 -Aspiration/seizure precautions -As needed analgesia -Maintain sleep-wake cycle Cardiac: Hypotension, h/o HTN, CHF, pacemaker placement -Blood pressure monitoring per protocol -s/p vasopressor support with Levophed -MAP goal greater than 65 -Cardiology consulted, appreciate recommendations -Echocardiogram LVEF 45 to 50%, RVSP 45-50 mmHg, moderate left ventricular hypertrophy, trace to small anterior pericardial effusion no tamponade -Hold home antihypertensive regimen at this time -Admit proBNP 6606 -s/p IV Lasix Respiratory: Acute hypoxic respiratory failure -CCM consulted, appreciate recommendations -Intubated on 10/15 with 7 oett at 23 at the lips -A.m. vent settings: Assist-control rate 16, tidal volume 400, PEEP 10, FiO2 50% -See RT notes for titration -A.m. ABG and CXR noted -VAP bundle -SPO2 monitoring GI: Protein calorie malnutrition -24 hours +1622 ml -PEG tube in place -PPI -NTR consult for tube feedings -BR: Senokot : NAD -Strict intake and output -Renally dose medications -Avoid nephrotoxic medications -Daily weights -Trend BMP ID: Severe Sepsis with Shock (POA), COVID 19 PNA, Lactic acidosis, possible aspiration PNA -CXR showed B PNA -CT chest showed B consolidation (left greater than right) -Infectious disease consulted, appreciate recommendations -Antibiotic therapy with cefepime and vancomycin -Procalcitonin 39.5, CRP 26.9 -Droplet/contact precautions -Trend COVID-19 inflammatory markers -Vitamin D/vitamin C/zinc -Dexamethasone 6 mg daily (10/16-10/26) -Remdisivir (10/16-10/21) -Monitor WBC and temperature curve Endo: h/o DM -Avoid hypoglycemia -Lantus, titrate as needed -SSI, high-dose -Accu-Cheks q. 6 Heme: Leukocytosis, acute bilateral common femoral DVT -CTA chest without PE -Home Xarelto switched to heparin gtt -Bilateral lower extremities doppler ultrasound shows acute bilateral common femoral DVT -Trend CBC -SCDs while in bed -Transfuse hemoglobin less than 7 The high probability of a clinically significant, sudden or life threatening deterioration of the [multi] system(s) required my full and direct attention, intervention and personal management. The aggregate critical care time was [60] minutes. This time is in addition to time spent performing reported procedures but includes the following: [x] Data Review and interpretation [x] Patient assessment and monitoring of vital signs [x] Documentation [x] Medication orders and management Disposition Plan: icu Total Time Spent with Patient (Minutes): 60 History Interval history: This is a 86-year-old female with HTN, CVA (2020), DM, seizure disorder, right lower leg DVT (on Xarelto), nonverbal at baseline, Alzheimer, CHF with pacemaker in situ who presented to the emergency department via EMS for severe respiratory distress with hypoxia. Upon arrival EMS patient was found to be in in respiratory distress and with altered mental status with SPO2 of 70% on room air. She was placed on BiPAP and transferred to the emergency department. In the emergency department patient was intubated for airway protection and increasing oxygen demands. Work-up in the emergency department included a CXR which showed possible aspiration pneumonia, leukocytosis, elevated proBNP, elevated CRP, elevated dddimer, lactic acidosis, hypomagnesemia, hyponatremia and elevated proBNP. Patient was admitted to the hospitalist service with CHF exacerbation, acute hypoxic respiratory failure, possible aspiration pneumonia and is a COVID-19 PUI with consults to [facility] cardiology and infectious disease. 10/16: Patient COVID-19 PCR positive, given IVF, CVP measuring initiated, weaning levophed as tolerated. Started on remdesivir/vit c/vit d/ zinc. 10/17: Acute DVT noted in bilateral common femoral vein patient started on heparin drip, magnesium and potassium repleted, vent changes per [facility]. Started remdesivir yesterday. 10/18: Remains off Levophed, given 500 mL bolus of normal saline. Increase Lantus. Permissive hypercapnia per [facility]. Hospitalist Physical - Constitutional Vitals: Temp Pulse Resp BP Pulse Ox 96.3 F L 80 20 88/54 100 10/18/21 11:59 10/18/21 12:12 10/18/21 06:45 10/18/21 12:12 10/18/21 12:12 General appearance: Present: other (Patient is sedated, on the ventilator) - EENT Eyes: Present: PERRL, EOM intact ENT: dentition normal - Neck Neck: Present: normal ROM - Respiratory Respiratory effort: normal Respiratory: bilateral: diminished - Cardiovascular Rhythm: regular Heart Sounds: Present: S1 & S2. Absent: systolic murmur, diastolic murmur - Extremities Extremities: no ischemia, pulses intact, pulses symmetrical, No edema, normal temperature, normal color Peripheral Pulses: within normal limits - Abdominal General gastrointestinal: soft, non-tender, non-distended, normal bowel sounds - Integumentary Integumentary: Present: warm, dry - Psychiatric Psychiatric: cooperative - Neurologic Neurologic: CNII-XII intact, moves all extremities - Allied Health Allied health notes reviewed: nursing, RT, social work HEART Score - HEART Score Age: > 65 Risk factors: 1-2 risk factors Troponin: Troponin T 0.015 ng/mL (0.00-0.029) 10/18/21 11:30 Troponin: 1-3x normal limit - Critical Actions Critical Actions: 4-6 pts:12-16.6% risk of adverse cardiac event. Should be admitted Results - Labs CBC & Chem 7: 10/18/21 05:16 10/18/21 05:00 Labs: Laboratory Last Values WBC 16.4 K/mm3 (4.5-11.0) H 10/18/21 05:16 RBC 3.03 M/mm3 (3.65-5.03) L 10/18/21 05:16 Hgb 7.3 gm/dl (10.1-14.3) L 10/18/21 05:16 Hct 23.5 % (30.3-42.9) L 10/18/21 05:16 MCV 78 fl (79-97) L 10/18/21 05:16 MCH 24 pg (28-32) L 10/18/21 05:16 MCHC 31 % (30-34) 10/18/21 05:16 RDW 17.9 % (13.2-15.2) H 10/18/21 05:16 Plt Count 285 K/mm3 (140-440) 10/18/21 05:16 Add Manual Diff Complete 10/17/21 06:02 Total Counted 100 10/17/21 06:02 Seg Neutrophils % Sliver Handler 10/17/21 06:02 Seg Neuts % (Manual) 95.0 % (40.0-70.0) H 10/17/21 06:02 Band Neutrophils % 0 % 10/17/21 06:02 Lymphocytes % (Manual) 1.0 % (13.4-35.0) L 10/17/21 06:02 Reactive Lymphs % (Man) 0 % 10/17/21 06:02 Monocytes % (Manual) 4.0 % (0.0-7.3) 10/17/21 06:02 Eosinophils % (Manual) 0 % (0.0-4.3) 10/17/21 06:02 Basophils % (Manual) 0 % (0.0-1.8) 10/17/21 06:02 Metamyelocytes % 0 % 10/17/21 06:02 Myelocytes % 0 % 10/17/21 06:02 Promyelocytes % 0 % 10/17/21 06:02 Blast Cells % 0 % 10/17/21 06:02 Nucleated RBC % Not Reportable 10/17/21 06:02 Seg Neutrophils # Man 15.9 K/mm3 (1.8-7.7) H 10/17/21 06:02 Band Neutrophils # 0.0 K/mm3 10/17/21 06:02 Lymphocytes # (Manual) 0.2 K/mm3 (1.2-5.4) L 10/17/21 06:02 Abs React Lymphs (Man) 0.0 K/mm3 10/17/21 06:02 Monocytes # (Manual) 0.7 K/mm3 (0.0-0.8) 10/17/21 06:02 Eosinophils # (Manual) 0.0 K/mm3 (0.0-0.4) 10/17/21 06:02 Basophils # (Manual) 0.0 K/mm3 (0.0-0.1) 10/17/21 06:02 Metamyelocytes # 0.0 K/mm3 10/17/21 06:02 Myelocytes # 0.0 K/mm3 10/17/21 06:02 Promyelocytes # 0.0 K/mm3 10/17/21 06:02 Blast Cells # 0.0 K/mm3 10/17/21 06:02 WBC Morphology Not Reportable 10/17/21 06:02 Hypersegmented Neuts Not Reportable 10/17/21 06:02 Hyposegmented Neuts Not Reportable 10/17/21 06:02 Hypogranular Neuts Not Reportable 10/17/21 06:02 Smudge Cells Not Reportable 10/17/21 06:02 Toxic Granulation Not Reportable 10/17/21 06:02 Toxic Vacuolation Not Reportable 10/17/21 06:02 Dohle Bodies Not Reportable 10/17/21 06:02 Pelger-Huet Anomaly Not Reportable 10/17/21 06:02 Girma Rods Not Reportable 10/17/21 06:02 Platelet Estimate Consistent w auto 10/17/21 06:02 Clumped Platelets Not Reportable 10/17/21 06:02 Plt Clumps, EDTA Not Reportable 10/17/21 06:02 Large Platelets Not Reportable 10/17/21 06:02 Giant Platelets Not Reportable 10/17/21 06:02 Platelet Satelliting Not Reportable 10/17/21 06:02 Plt Morphology Comment Not Reportable 10/17/21 06:02 RBC Morphology Not Reportable 10/17/21 06:02 Dimorphic RBCs Not Reportable 10/17/21 06:02 Polychromasia Not Reportable 10/17/21 06:02 Hypochromasia 1+ 10/17/21 06:02 Poikilocytosis 1+ 10/17/21 06:02 Anisocytosis 1+ 10/17/21 06:02 Microcytosis Not Reportable 10/17/21 06:02 Macrocytosis Not Reportable 10/17/21 06:02 Spherocytes Not Reportable 10/17/21 06:02 Pappenheimer Bodies Not Reportable 10/17/21 06:02 Sickle Cells Not Reportable 10/17/21 06:02 Target Cells 1+ 10/17/21 06:02 Tear Drop Cells Not Reportable 10/17/21 06:02 Ovalocytes Not Reportable 10/17/21 06:02 Helmet Cells Not Reportable 10/17/21 06:02 Vaz-[place] Bodies Not Reportable 10/17/21 06:02 [place] Rings Not Reportable 10/17/21 06:02 [place] Cells Not Reportable 10/17/21 06:02 Bite Cells Not Reportable 10/17/21 06:02 Crenated Cell Not Reportable 10/17/21 06:02 Elliptocytes Not Reportable 10/17/21 06:02 Acanthocytes (Spur) Not Reportable 10/17/21 06:02 Rouleaux Not Reportable 10/17/21 06:02 Hemoglobin C Crystals Not Reportable 10/17/21 06:02 Schistocytes Not Reportable 10/17/21 06:02 Malaria parasites Not Reportable 10/17/21 06:02 Brodie Bodies Not Reportable 10/17/21 06:02 Hem Pathologist Commnt No 10/17/21 06:02 PT 14.6 Sec. (12.2-14.9) 10/15/21 16:15 INR 1.03 (0.87-1.13) 10/15/21 16:15 APTT 38.0 Sec. (24.2-36.6) H 10/15/21 16:15 D-Dimer 2424.98 ng/mlDDU (0-234) H 10/18/21 04:40 Heparin Anti-Xa Level 0.24 U.I./ml (0.3-0.7) L 10/18/21 11:30 ABG pH 7.282 (7.320-7.450) L 10/18/21 09:00 POC ABG pCO2 48.1 mmHg (32.0-48.0) H 10/18/21 09:00 ABG pCO2 57.0 mm Hg 10/15/21 16:42 POC ABG pO2 103.0 mmHg (83-108) 10/18/21 09:00 ABG pO2 75.4 mm Hg (80.0-90.0) L 10/15/21 16:42 POC ABG HCO3 22.2 10/18/21 09:00 ABG HCO3 30.6 mmol/L (20.0-26.0) H 10/15/21 16:42 ABG O2 Saturation 97.0 (0-100) 10/18/21 09:00 ABG O2 Content 14.3 (0.0-44) 10/15/21 16:42 POC ABG Base Excess -4.3 10/18/21 09:00 ABG Base Excess 3.9 mmol/L (-2.0-3.0) H 10/15/21 16:42 ABG Hemoglobin 7.6 (12.0-17.5) L 10/18/21 09:00 ABG Oxyhemoglobin 95.4 (94-98) 10/18/21 09:00 ABG Carboxyhemoglobin 0.8 % (0.0-5.0) 10/15/21 16:42 ABG Methemoglobin 0.3 (0.0-1.5) 10/18/21 09:00 ABG Sodium 136.8 mmol/L (136.0-145.0) 10/18/21 09:00 ABG Potassium 4.0 mmol/L (3.40-4.50) 10/18/21 09:00 ABG Chloride 104.0 mmol/L (98-107) 10/18/21 09:00 ABG Glucose 252 mg/dL (65-95) H 10/18/21 09:00 Oxyhemoglobin 93.1 % (95.0-99.0) L 10/15/21 16:42 Carboxyhemoglobin 1.3 (0.5-1.5) 10/18/21 09:00 FiO2 100 % 10/15/21 16:42 FiO2 % 50 10/18/21 09:00 Sodium 140 mmol/L (137-145) 10/18/21 05:00 Potassium 4.0 mmol/L (3.6-5.0) 10/18/21 05:00 Chloride 104.4 mmol/L (98-107) 10/18/21 05:00 Carbon Dioxide 22 mmol/L (22-30) 10/18/21 05:00 Anion Gap 18 mmol/L 10/18/21 05:00 BUN 44 mg/dL (7-17) H 10/18/21 05:00 Creatinine 1.0 mg/dL (0.6-1.2) 10/18/21 05:00 Estimated GFR > 60 ml/min 10/18/21 05:00 BUN/Creatinine Ratio 44 % 10/18/21 05:00 Glucose 286 mg/dL (65-100) H 10/18/21 05:00 POC Glucose 264 mg/dL (70-105) H 10/18/21 15:58 Lactic Acid 1.20 mmol/L (0.7-2.0) 10/17/21 06:02 Calcium 7.8 mg/dL (8.4-10.2) L 10/18/21 05:00 Phosphorus 3.80 mg/dL (2.5-4.5) D 10/17/21 06:02 Magnesium 2.60 mg/dL (1.7-2.3) H 10/18/21 04:40 Ferritin 428.7 ng/mL (10.0-200.0) H 10/17/21 06:02 Total Bilirubin 0.30 mg/dL (0.1-1.2) 10/18/21 05:00 Direct Bilirubin 0.3 mg/dL (0-0.2) H 10/17/21 06:02 Indirect Bilirubin 0.1 mg/dL 10/17/21 06:02 AST 19 units/L (5-40) 10/18/21 05:00 ALT 14 units/L (7-56) 10/18/21 05:00 Alkaline Phosphatase 56 units/L (35-129) 10/18/21 05:00 Ammonia 38.0 umol/L (25-60) 10/15/21 16:15 Lactate Dehydrogenase 257 units/L (91-180) H 10/17/21 06:02 Troponin T 0.015 ng/mL (0.00-0.029) 10/18/21 11:30 C-Reactive Protein 28.50 mg/dL (0.00-1.30) H 10/17/21 06:02 NT-Pro-B Natriuret Pep 6606 pg/mL (0-900) H 10/15/21 16:15 Total Protein 5.7 g/dL (6.3-8.2) L 10/18/21 05:00 Albumin 2.2 g/dL (3.9-5) L 10/18/21 05:00 Albumin/Globulin Ratio 0.6 % 10/18/21 05:00 Triglycerides 122 mg/dL (2-149) 10/15/21 18:00 Cholesterol 99 mg/dL (50-199) 10/15/21 18:00 LDL Cholesterol Direct 46 mg/dL (50-130) L 10/15/21 18:00 HDL Cholesterol 25 mg/dL (40-59) L 10/15/21 18:00 Cholesterol/HDL Ratio 3.96 % 10/15/21 18:00 Lipase 19 units/L (13-60) 10/15/21 16:15 Procalcitonin 39.51 ng/mL (<0.15) 10/16/21 23:31 Arterial Blood Glucose 252 mg/dL (65-95) H 10/18/21 09:00 Arterial Blood Ionized Calcium 4.7 mg/dL (4.6-5.3) 10/18/21 09:00 Urine Color Yellow (Yellow) 10/15/21 Unknown Urine Turbidity Cloudy (Clear) 10/15/21 Unknown Urine pH 5.0 (5.0-7.0) 10/15/21 Unknown Ur Specific [place] 1.016 (1.003-1.030) 10/15/21 Unknown Urine Protein >500 mg/dL (Negative) 10/15/21 Unknown Urine Glucose (UA) 50 mg/dL (Negative) 10/15/21 Unknown Urine Ketones Neg mg/dL (Negative) 10/15/21 Unknown Urine Blood Neg (Negative) 10/15/21 Unknown Urine Nitrite Neg (Negative) 10/15/21 Unknown Urine Bilirubin Neg (Negative) 10/15/21 Unknown Urine Urobilinogen < 2.0 mg/dL (<2.0) 10/15/21 Unknown Ur Leukocyte Esterase Neg (Negative) 10/15/21 Unknown Urine WBC (Auto) 5.0 /HPF (0.0-6.0) 10/15/21 Unknown Urine RBC (Auto) 2.0 /HPF (0.0-6.0) 10/15/21 Unknown U Epithel Cells (Auto) 2.0 /HPF (0-13.0) 10/15/21 Unknown Urine Bacteria (Auto) 1+ /HPF (Negative) 10/15/21 Unknown Calcium Oxalate Crystal 1+ 10/15/21 Unknown Amorphous Crystals 3+ 10/15/21 Unknown Urine Mucus Few /HPF 10/15/21 Unknown Urine Yeast (Budding) 1+ /HPF 10/15/21 Unknown Salicylates < 0.3 mg/dL (2.8-20.0) L 10/15/21 16:15 Urine Opiates Screen Negative 10/15/21 Unknown Urine Methadone Screen Negative 10/15/21 Unknown Acetaminophen 5.0 ug/mL (10.0-30.0) L 10/15/21 16:15 Ur Barbiturates Screen Negative 10/15/21 Unknown Ur Phencyclidine Scrn Negative 10/15/21 Unknown Ur Amphetamines Screen Negative 10/15/21 Unknown U Benzodiazepines Scrn Negative 10/15/21 Unknown Urine Cocaine Screen Negative 10/15/21 Unknown U Marijuana (THC) Screen Negative 10/15/21 Unknown Drugs of Abuse Note Disclamer 10/15/21 Unknown Coronavirus (PCR) Positive (Negative) A 10/16/21 09:36 Microbiology: Microbiology 10/15/21 16:15 Peripheral/Venous Blood Culture - Preliminary NO GROWTH AFTER 48 HOURS 10/15/21 16:15 Peripheral/Venous Blood Culture - Preliminary NO GROWTH AFTER 48 HOURS Magallanes/IV: Voiding Method Indwelling Catheter Active Medications - Current Medications Current Medications: Generic Name Dose Route Start Last Admin Trade Name Freq PRN Reason Stop Dose Admin Acetaminophen 650 mg 10/16/21 00:57 10/16/21 21:51 Acetaminophen 325 Mg Tab PO 650 mg Q4H PRN Administration Pain MILD(1-3)/Fever >100.5/KEYS Lipase/Protease/Amylase 1 each 10/16/21 01:07 Lipase 10,500/Protease 25,000/Amylase 43,750 (Units) Dr Schuler FEEDTUBE PRN PRN For Clogged Feeding Tube Ascorbic Acid 500 mg 10/17/21 10:00 10/18/21 10:39 Ascorbic Acid 500 Mg Tab PO 500 mg QDAY MUNA Administration Cholecalciferol 5,000 unit 10/17/21 10:00 10/18/21 10:39 Cholecalciferol (Vit D3) 5,000 Unit Tab PO 5,000 unit DAILY MUNA Administration Dexamethasone 8 mg 10/16/21 20:00 10/18/21 10:40 Dexamethasone 4 Mg Tab FEEDTUBE 10/25/21 10:01 8 mg QDAY MUNA Administration Famotidine 20 mg 10/17/21 22:00 10/18/21 10:39 Famotidine 20 Mg Tab FEEDTUBE 20 mg BID MUNA Administration Heparin Sodium (Porcine) 2,000 unit 10/17/21 14:00 Heparin 10,000 Units/10 Ml Vial IV Q6H PRN Anti-Xa Assay < 0.1 units/ml Propofol 1,000 mg in 100 mls @ 1.633 mls/hr 10/15/21 16:00 10/18/21 12:00 Diprivan 10 Mg/Ml IV 15 mcg/kg/min TITR MUNA 4.899 mls/hr Titration Protocol 5 MCG/KG/MIN NORepinephrine/NS 8 MG-250 ML 8 mg in 250 mls @ 3.75 mls/hr 10/15/21 18:00 10/17/21 03:13 Norepinephrine/Ns 8 Mg-250 Ml (Double Conc) IV 1 mcg/min TITRATE MUNA 1.875 mls/hr Administration Protocol 2 MCG/MIN Vancomycin HCl 750 mg/ Sodium 265 mls @ 166.667 mls/hr 10/16/21 18:00 10/17/21 21:51 Chloride IV 166.667 mls/hr Q24H MUNA Administration Cefepime HCl 2 gm in 100 mls @ 200 mls/hr 10/16/21 13:00 10/18/21 15:34 Cefepime/Ns 2 Gm/100 Ml IV 200 mls/hr Q12H MUNA Administration Protocol REMDESIVIR 100 mg/ Sodium 250 mls @ 500 mls/hr 10/17/21 21:00 10/17/21 21:51 Chloride IV 10/20/21 21:29 500 mls/hr Q24HR@2100 MUNA Administration Heparin Sodium/Sodium Chloride 25,000 unit in 500 mls @ 16 mls/hr 10/17/21 14:00 10/18/21 14:02 Heparin/ 0.45% Nacl-25,000 Unit/500 Ml IV 900 units/hr TITR MUNA 18 mls/hr Titration Protocol 800 UNITS/HR Sodium Chloride 500 mls @ 999 mls/hr 10/18/21 15:56 Nacl 0.9% 500 Ml IV 10/18/21 16:26 ONCE ONE Insulin Glargine 15 units 10/18/21 22:00 Insulin Glargine 100 Units/Ml SUB-Q QHS [facility] Insulin Human Lispro 0 unit 10/16/21 09:00 10/18/21 13:34 Insulin Lispro 100 Unit/Ml SUB-Q 4 unit Q6HR MUNA Administration Protocol Levetiracetam 500 mg 10/16/21 11:00 10/18/21 10:40 Levetiracetam 500 Mg/5 Ml Oral Liqd PO 500 mg BID MUNA Administration Metoclopramide HCl 10 mg 10/16/21 01:02 Metoclopramide 10 Mg/2 Ml Inj IV Q6H PRN Nausea And Vomiting Ondansetron HCl 4 mg 10/16/21 00:57 Ondansetron 4 Mg/2 Ml Inj IV Q3H PRN Nausea And Vomiting Senna/Docusate Sodium 1 tab 10/16/21 22:00 10/17/21 21:50 Sennosides/Docusate Sodium 8.6/50 Mg Tab FEEDTUBE 1 tab QHS MUNA Administration Simple Syrup 15 ml 10/16/21 01:07 Simple Syrup 15 Ml FEEDTUBE PRN PRN Hypoglycemia Simple Syrup 30 ml 10/16/21 01:07 Simple Syrup 15 Ml FEEDTUBE PRN PRN Hypoglycemia Sodium Bicarbonate 325 mg 10/16/21 01:07 Sodium Bicarbonate 325 Mg Tab FEEDTUBE PRN PRN For Clogged Feeding Tube Sodium Chloride 10 ml 10/16/21 01:00 10/18/21 10:42 Sodium Chloride 0.9% 10 Ml Flush Syringe IV 10 ml BID MUNA Administration Sodium Chloride 10 ml 10/16/21 00:57 Sodium Chloride 0.9% 10 Ml Flush Syringe IV PRN PRN LINE FLUSH Sodium Chloride 5 ml 10/16/21 13:57 Sodium Chloride 0.9% 1000 Ml Iv Soln IV PRN PRN CVP Sodium Chloride 50 ml 10/16/21 21:00 10/17/21 21:51 Sodium Chloride 0.9% 50 Ml Ivpb IV 10/20/21 21:01 50 ml Q24HR@2100 MUNA Administration Zinc Sulfate 220 mg 10/16/21 22:00 10/18/21 10:39 Zinc Sulfate 220 Mg Cap PO 220 mg BID MUNA Administration Nutrition/Malnutrition Assess - Dietary Evaluation Nutrition/Malnutrition Findings: Nutrition Notes Start: 10/16/21 10 :33 Freq: Status: Active Protocol: Document 10/18/21 16:08 ANTIONE (Rec: 10/18/21 16:15 ANTIONE [id number]) Nutrition Notes Initial or Follow up Brief Note Current Diet TF-Promote @ 41 ml/hr (from L 10/16). Height 5 ft 5 in Weight 55 kg [place] Body Weight (kg) 56.81 BMI 20.1 Weight change and time frame No body weight change reported . Weight Status Appropriate Subjective/Other Information RD consult for routine F/U on TF tolerance. TF continues as prescribed, therefore, well tolerated. Percent of energy/protein needs met: Prescribed Promote @ 41 ml/hr provides for energy/protein needs (985 Kcal/62 g) during LOS, plus 43 Kcal from propofol. 100% Kcal; 93% AA. Current % PO Other Minimum of two criteria No #1 Nutrition Diagnosis Inadequate oral intake Diagnosis Progress(for reassessment Continues documentation) Nutrition Intervention Nutrition Support: Continue Promote @ 41 ml/hr. Flush: 30 ml water Q 4 hr, or as per MD. % RDI: 100% Kcal; 93% AA. Goal #1 Provide at least 75% of energy /protein needs through Enteral Feeding during LOS. Follow-Up By: 10/25/21 Additional Comments Continue monitoring TF tolerance and BM.
--- NOTE | 2021-10-18 17:31 | Progress Note ---
Assessment and Plan - Patient Problems (1) Respiratory failure Current Visit: Yes Status: Acute Plan to address problem: Patient presented with respiratory failure, currently sedated, on the vent. There is no clinical or x-ray evidence of fluid overload or heart failure, there is some mild to moderate cardiomegaly on the chest x-ray, and echocardiogram is pending for left ventricular function assessment. The patient's chest x-ray does show a consolidation in the left lower lobe, consistent with acute pneumonia. COVID-19 test is positive. (2) Cardiac pacemaker Current Visit: Yes Status: Acute Plan to address problem: Patient has a dual-chamber pacemaker in situ, we will request old records including outpatient records to obtain details of her pacemaker and other previ ous cardiac work-up and interventions. Subjective Date of service: 10/18/21 Principal diagnosis: AHRF; Pneumonia; Septic shock; COVID-19 infection; CHF; DVT; NSTEMI Interval history: Patient is unresponsive, on the vent. No cardiac events reported. 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 Objective Vital Signs Temp Pulse Pulse Resp BP Pulse Ox 10/18/21 16:00 96.8 F L 10/18/21 15:46 80 96/57 100 10/18/21 12:12 80 88/54 100 10/18/21 11:59 96.3 F L 10/18/21 09:03 80 99/64 100 10/18/21 07:44 96.3 F L 10/18/21 06:45 80 20 80/53 10/18/21 06:30 80 19 85/54 96 10/18/21 06:15 80 16 95/58 98 10/18/21 06:00 80 16 100/58 99 10/18/21 05:45 80 18 82/53 10/18/21 05:30 79 13 99/62 99 10/18/21 05:15 80 17 94/61 10/18/21 05:00 80 14 97/60 10/18/21 04:45 80 18 93/55 96 10/18/21 04:30 80 19 96/59 10/18/21 04:24 80 89/55 98 10/18/21 04:15 80 19 89/55 96 10/18/21 04:00 98.2 F 80 80 18 91/57 98 10/18/21 03:45 80 17 94/59 10/18/21 03:30 80 19 89/55 95 10/18/21 03:15 80 17 97/64 10/18/21 03:00 80 18 89/57 10/18/21 02:45 80 19 93/59 10/18/21 02:30 80 17 90/60 10/18/21 02:15 80 18 95/59 94 10/18/21 02:00 79 16 103/66 10/18/21 01:45 80 18 88/55 10/18/21 01:30 80 19 90/55 10/18/21 01:15 80 19 93/56 98 10/18/21 01:00 79 19 96/57 10/18/21 00:45 80 18 93/58 96 10/18/21 00:30 80 18 99/63 96 10/18/21 00:15 80 16 103/66 10/18/21 00:12 80 90/57 100 10/18/21 00:00 79 79 18 92/56 100 10/17/21 23:45 79 19 87/57 10/17/21 23:30 80 18 90/57 10/17/21 23:15 79 21 90/57 10/17/21 23:00 80 20 89/57 10/17/21 22:45 80 19 92/57 10/17/21 22:30 80 18 91/58 10/17/21 22:15 80 18 93/58 100 10/17/21 22:00 80 18 85/57 10/17/21 21:45 80 18 86/55 10/17/21 21:30 80 18 86/56 99 10/17/21 21:15 80 20 88/57 10/17/21 21:00 80 19 89/58 10/17/21 20:45 80 17 96/58 98 10/17/21 20:33 80 19 92/61 100 10/17/21 20:30 80 18 92/61 10/17/21 20:15 79 16 103/67 100 10/17/21 20:07 80 85/56 100 10/17/21 20:00 80 80 19 85/56 99 10/17/21 19:45 80 18 89/54 10/17/21 19:30 80 19 87/55 10/17/21 19:15 80 19 88/55 10/17/21 19:00 80 18 90/57 100 10/17/21 18:45 80 16 108/68 100 10/17/21 18:30 80 18 80/49 10/17/21 18:15 80 18 80/51 10/17/21 18:00 80 19 81/49 10/17/21 17:45 80 18 81/54 - Physical Examination General: Other (Unresponsive, on the ventilator) HEENT: Positive: Other (Pupils fixed) Neck: Positive: neck supple Cardiac: Positive: Irregularly Regular Lungs: Positive: Decreased Breath Sounds Neuro: Positive: Other (Unresponsive, on the ventilator) Abdomen: Positive: Soft Skin: Positive: Clear Extremities: Absent: edema - Labs and Meds Cardiac Enzymes 10/18/21 Range/Units 05:00 AST 19 (5-40) units/L CBC 10/18/21 Range/Units 05:16 WBC 16.4 H (4.5-11.0) K/mm3 RBC 3.03 L (3.65-5.03) M/mm3 Hgb 7.3 L (10.1-14.3) gm/dl Hct 23.5 L (30.3-42.9) % Plt Count 285 (140-440) K/mm3 Comprehensive Metabolic Panel 10/18/21 Range/Units 05:00 Sodium 140 (137-145) mmol/L Potassium 4.0 (3.6-5.0) mmol/L Chloride 104.4 (98-107) mmol/L Carbon Dioxide 22 (22-30) mmol/L BUN 44 H (7-17) mg/dL Creatinine 1.0 (0.6-1.2) mg/dL Glucose 286 H (65-100) mg/dL Calcium 7.8 L (8.4-10.2) mg/dL AST 19 (5-40) units/L ALT 14 (7-56) units/L Alkaline Phosphatase 56 (35-129) units/L Total Protein 5.7 L (6.3-8.2) g/dL Albumin 2.2 L (3.9-5) g/dL Pacemaker: ventricular pacing w/capt - Allied health notes Allied health notes reviewed: nursing
[2021-10-18] MEDS: HEPARIN/ 0.45% NACL DRIP 25,000 UNIT/500 ML BAG IV SCH (19:35)
[2021-10-18] MEDS: VANCOMYCIN 750 MG in SODIUM CHLORIDE 0.9% 250ML 250 ML IV SCH (19:43)
[2021-10-18] MEDS: SODIUM CHLORIDE 0.9% 50 ML IVPB IV SCH (21:56)
[2021-10-18] MEDS: REMDESIVIR 100 MG in SODIUM CHLORIDE 0.9% 250ML 250 ML IV SCH (21:56)
[2021-10-18] MEDS: INSULIN GLARGINE 100 UNITS/ML SUB-Q SCH (22:25)
[2021-10-18] MEDS: SENNOSIDES/DOCUSATE SODIUM 8.6/50 MG TAB FEEDTUBE SCH (22:25)
[2021-10-19] MEDS: CEFEPIME/NS 2 GM/100 ML 2 GM/100 ML BAG IV SCH ×2 (00:05→13:23)
[2021-10-19] MEDS: INSULIN LISPRO 100 UNIT/ML SUB-Q SCH ×4 (00:06→18:11)
[2021-10-19 04:42] LABS: Hematocrit 24.3 % (30.3-42.9); Hemoglobin 7.5 gm/dl (10.1-14.3); Mean Corpuscular HGB Conc 31 % (30-34); Mean Corpuscular Volume 77 fl (79-97); Platelet Count 345 K/mm3 (140-440); Red Blood Count 3.13 M/mm3 (3.65-5.03); Red Cell Distribution Width 17.8 % (13.2-15.2)
[2021-10-19 04:51] LABS: C-Reactive Protein 9.3 mg/dL (0.00-1.30)
[2021-10-19 04:52] LABS: Albumin 2.5 g/dL (3.9-5); Calcium 8.4 mg/dL (8.4-10.2)
[2021-10-19] MEDS: levETIRAcetam 500 MG/5 ML ORAL LIQD PO SCH ×2 (09:57→21:48)
[2021-10-19] MEDS: CHOLECALCIFEROL (VIT D3) 5,000 UNIT TAB PO SCH (09:57)
[2021-10-19] MEDS: FAMOTIDINE 20 MG TAB FEEDTUBE SCH ×2 (09:58→21:48)
[2021-10-19] MEDS: ZINC SULFATE 220 MG CAP PO SCH ×2 (09:58→21:48)
[2021-10-19] MEDS: DEXAMETHASONE 4 MG TAB FEEDTUBE SCH (09:58)
[2021-10-19] MEDS: ASCORBIC ACID 500 MG TAB PO SCH (09:58)
--- NOTE | 2021-10-19 11:56 | Progress Note ---
Assessment and Plan Cultures: 10/15/2021 blood culture: no growth COVID-19 PCR: Positive 10/15/2021 sputum culture: In process A/P: 86-year-old female with hypertension, prior CVA, diabetes, CHF, indwelling cardiac device admitted with resp distress: #Severe sepsis with septic shock, likely secondary to bilateral pneumonia with possible aspiration pneumonia. Labs showed leukocytosis with WBC 17.2, D-dimer 7433, lactate of 5.6, proBNP 6606, CRP 25.9, ferritin 418.8. UA with no pyuria. Procalcitonin 39.5 #COVID-19 pneumonia: COVID PCR positive. #Acute hypoxic respiratory failure: on the vent #CHF, indwelling cardiac device: BNP elevated. #Prior CVA Recs: -continue steroids and Remdesivir for COVID-19 -Not a candidate for Actemra due to very high white count and procalcitonin with concern for superadded bacterial infection -continue IV cefepime, IV vancomycin -f/u MRSA nasal PCR, if negative, can discontinue Vancomycin -Follow-up sputum culture -guarded prognosis Yogi Maher MD, FACP, [facility] ([facility]) O: [phone] F: [phone] Subjective Date of service: 10/19/21 Principal diagnosis: AHRF; Pneumonia; Septic shock; COVID-19 infection; CHF; DVT; NSTEMI Interval history: No fever. Remains on the vent. Remains on low dose pressors. Objective - Exam Narrative Exam: Physical Exam: Constitutional: sedated, intubated, on the vent Head, Ears, Nose: Normocephalic, atraumatic. External ears, nose normal Eyes: Conjunctivae/corneas clear. No icterus. No ptosis. Neck: intubated Oral: intubated Cardiovascular: S1, S2 + Respiratory: AE fair GI: Soft, bowel sounds + Musculoskeletal: No pedal edema, no cyanosis. Skin: No rash or abscess Hem/Lymphatic: No palpable cervical or supraclavicular nodes. No lymphangitis Psych: no agitation Neurological: sedated, intubated, on the vent, exam limited - Constitutional Vitals: Vital Signs Temp Pulse Resp BP Pulse Ox 97.9 F 80 18 101/61 94 10/19/21 08:00 10/19/21 10:15 10/19/21 10:15 10/19/21 10:15 10/19/21 10:15 Temperature -Last 24 Hours Temperature 97.9 F Temperature 96.6 F Temperature 97.2 F Temperature 96.8 F Temperature 96.3 F - Labs CBC & Chem 7: 10/19/21 02:40 10/19/21 02:40 Labs: Abnormal lab results 10/18/21 10/18/21 10/18/21 Range/Units 11:30 15:58 19:56 WBC (4.5-11.0) K/mm3 RBC (3.65-5.03) M/mm3 Hgb (10.1-14.3) gm/dl Hct (30.3-42.9) % MCV (79-97) fl MCH (28-32) pg RDW (13.2-15.2) % Heparin Anti-Xa Level 0.24 L 0.22 L (0.3-0.7) U.I./ml BUN (7-17) mg/dL Glucose (65-100) mg/dL POC Glucose 264 H (70-105) mg/dL Ferritin (10.0-200.0) ng/mL Lactate Dehydrogenase (91-180) units/L C-Reactive Protein (0.00-1.30) mg/dL Total Protein (6.3-8.2) g/dL Albumin (3.9-5) g/dL 10/18/21 10/19/21 10/19/21 Range/Units 23:21 02:40 02:40 WBC (4.5-11.0) K/mm3 RBC (3.65-5.03) M/mm3 Hgb (10.1-14.3) gm/dl Hct (30.3-42.9) % MCV (79-97) fl MCH (28-32) pg RDW (13.2-15.2) % Heparin Anti-Xa Level (0.3-0.7) U.I./ml BUN (7-17) mg/dL Glucose (65-100) mg/dL POC Glucose 198 H (70-105) mg/dL Ferritin 383.0 H (10.0-200.0) ng/mL Lactate Dehydrogenase 223 H (91-180) units/L C-Reactive Protein 9.30 H (0.00-1.30) mg/dL Total Protein (6.3-8.2) g/dL Albumin (3.9-5) g/dL 10/19/21 10/19/21 10/19/21 Range/Units 02:40 02:40 02:40 WBC 15.5 H (4.5-11.0) K/mm3 RBC 3.13 L (3.65-5.03) M/mm3 Hgb 7.5 L (10.1-14.3) gm/dl Hct 24.3 L (30.3-42.9) % MCV 77 L (79-97) fl MCH 24 L (28-32) pg RDW 17.8 H (13.2-15.2) % Heparin Anti-Xa Level 0.17 L (0.3-0.7) U.I./ml BUN 49 H (7-17) mg/dL Glucose 167 H (65-100) mg/dL POC Glucose (70-105) mg/dL Ferritin (10.0-200.0) ng/mL Lactate Dehydrogenase (91-180) units/L C-Reactive Protein (0.00-1.30) mg/dL Total Protein 6.2 L (6.3-8.2) g/dL Albumin 2.5 L (3.9-5) g/dL 10/19/21 10/19/21 Range/Units 05:06 11:40 WBC (4.5-11.0) K/mm3 RBC (3.65-5.03) M/mm3 Hgb (10.1-14.3) gm/dl Hct (30.3-42.9) % MCV (79-97) fl MCH (28-32) pg RDW (13.2-15.2) % Heparin Anti-Xa Level (0.3-0.7) U.I./ml BUN (7-17) mg/dL Glucose (65-100) mg/dL POC Glucose 152 H 146 H (70-105) mg/dL Ferritin (10.0-200.0) ng/mL Lactate Dehydrogenase (91-180) units/L C-Reactive Protein (0.00-1.30) mg/dL Total Protein (6.3-8.2) g/dL Albumin (3.9-5) g/dL
--- NOTE | 2021-10-19 12:29 | Progress Note ---
Assessment and Plan Acute hypoxemic respiratory failure on MVS Aspiration pneumonia Septic shock COVID-19 infection DVT CHF H/O CVA Adult FTT Leukocytosis Anemia that is microcytic Lactic acidosis Hypomagnesemia NSTEMI Oropharyngeal dysphagia Dementia - Hematology Consult placed - continue current vent settings - continue IV Heparin P.E. protocol - follow H&H - Levophed for target MAP > 65 mmHg - keep peep at 10 re: atelectasis - continue Cefepime & IV Vancomycin; de-escalate per ID recommendations - continue care as below otherwise; - Daily SAT and SBT assessment as tolerated - continue to wean supplemental oxygen for target O2 sat's > 90% acutely - VAP bundle addressed - continue lung protective strategies - continue bronchodilators with pulmonary hygiene per RT - wean per pulmonary driven protocols otherwise - sedation prn for target RASS 0 to -1 - continue to avoid nephrotoxins, renally dose all medications - continue mobility protocols to prevent pressure ulcers - PT/OT as tolerated - Wound care per RN/WCT - continue accuchecks with glycemic control per SSI (While critically ill target blood glucose of 140-180 mg/dL; avoid hypoglycemia) - home oxygen evaluation at discharge - GI & VTE prophylaxis - Flu & pneumovax per protocol - continue other care per attending / other consultants - prn analgesia per pain score COVID SPECIFIC INTERVENTIONS - Remdesivir as per ID/Pulmonary developed protocols (Receiving) - Not as candidate for Actemra - continue systemic steroids for severe COVID-19 infection empirically (Dexamethasone) - follow repeat COVID tests results - zinc and vitamin C supplementation - Monitor inflammatory markers per facility protocol - ferritin, Ddimer, CRP - therapeutic anticoagulation per system Protocol based on d-dimer and clinical considerations (on IV Heparin re: DVT) - Contact and airborne isolation .... Re-evaluate in am & prn CONDITION: CRITICAL PROGNOSIS: GUARDED CODE STATUS: FULL CODE The high probability of a clinically significant, sudden or life-threatening det erioration of the [respiratory, cardiovascular, hematologic & neurologic] system(s) required my full and direct attention, intervention and personal management. The aggregate critical care time was [37] minutes without overlap. Time includes spent on; [x] Data Review and interpretation [x] Patient assessment and monitoring of vital signs [x] Documentation [x] Medication orders and management Subjective Date of service: 10/19/21 Principal diagnosis: AHRF; Pneumonia; Septic shock; COVID-19 infection; CHF; DVT; NSTEMI Interval history: Patient is seen today for: AHRF; Aspiration pneumonia; Septic shock; COVID-19 infection; CHF; DVT; NSTEMI Seen and examined at bedside; 24hour events reviewed; nursing and respiratory care staff consulted; no adverse overnight events reported to me; resting peacefully in bed; remains on MVS; secretions moderate; AMS is persistent Objective Vital Signs - 12hr 10/19/21 10/19/21 10/19/21 00:30 00:45 01:00 Temperature Pulse Rate 79 79 80 Pulse Rate [ From Monitor] Respiratory 18 21 19 Rate Blood Pressure 92/58 98/60 90/58 O2 Sat by Pulse 97 99 98 Oximetry 10/19/21 10/19/21 10/19/21 01:15 01:30 01:45 Temperature Pulse Rate 79 79 79 Pulse Rate [ From Monitor] Respiratory 23 19 19 Rate Blood Pressure 95/60 95/59 97/61 O2 Sat by Pulse 83 L 100 100 Oximetry 10/19/21 10/19/21 10/19/21 02:00 02:15 02:30 Temperature Pulse Rate 79 80 80 Pulse Rate [ From Monitor] Respiratory 21 18 19 Rate Blood Pressure 109/64 99/64 95/62 O2 Sat by Pulse 97 99 100 Oximetry 10/19/21 10/19/21 10/19/21 02:45 03:01 03:15 Temperature Pulse Rate 80 80 79 Pulse Rate [ From Monitor] Respiratory 19 11 L 32 H Rate Blood Pressure 94/60 119/70 130/73 O2 Sat by Pulse 100 100 97 Oximetry 10/19/21 10/19/21 10/19/21 03:30 03:45 03:57 Temperature Pulse Rate 80 80 80 Pulse Rate [ From Monitor] Respiratory 28 H 20 Rate Blood Pressure 125/65 109/60 109/60 O2 Sat by Pulse 95 94 96 Oximetry 10/19/21 10/19/21 10/19/21 04:00 04:01 04:15 Temperature Pulse Rate 80 80 80 Pulse Rate [ 80 From Monitor] Respiratory 28 H 34 H 23 Rate Blood Pressure 176/86 176/86 O2 Sat by Pulse 96 91 93 Oximetry 10/19/21 10/19/21 10/19/21 04:30 04:45 05:00 Temperature Pulse Rate 80 80 80 Pulse Rate [ From Monitor] Respiratory 26 H 14 29 H Rate Blood Pressure 115/65 89/53 97/58 O2 Sat by Pulse 94 91 92 Oximetry 10/19/21 10/19/21 10/19/21 05:15 05:30 05:45 Temperature Pulse Rate 80 80 80 Pulse Rate [ From Monitor] Respiratory 22 21 21 Rate Blood Pressure 95/58 92/52 87/51 O2 Sat by Pulse 94 Oximetry 10/19/21 10/19/21 10/19/21 06:00 06:15 06:30 Temperature Pulse Rate 80 80 80 Pulse Rate [ From Monitor] Respiratory 20 21 21 Rate Blood Pressure 92/54 83/50 83/49 O2 Sat by Pulse 96 97 97 Oximetry 10/19/21 10/19/21 10/19/21 06:45 07:00 07:15 Temperature Pulse Rate 80 80 80 Pulse Rate [ From Monitor] Respiratory 18 18 19 Rate Blood Pressure 82/48 81/49 78/48 O2 Sat by Pulse 98 99 99 Oximetry 10/19/21 10/19/21 10/19/21 07:30 07:45 08:00 Temperature 97.9 F Pulse Rate 80 80 80 Pulse Rate [ 80 From Monitor] Respiratory 20 20 18 Rate Blood Pressure 79/50 81/51 98/60 O2 Sat by Pulse 99 Oximetry 10/19/21 10/19/21 10/19/21 08:15 08:30 08:45 Temperature Pulse Rate 80 80 80 Pulse Rate [ From Monitor] Respiratory 19 22 20 Rate Blood Pressure 100/57 96/56 99/56 O2 Sat by Pulse 99 97 97 Oximetry 10/19/21 10/19/21 10/19/21 08:52 09:00 09:15 Temperature Pulse Rate 80 80 80 Pulse Rate [ From Monitor] Respiratory 20 20 Rate Blood Pressure 99/56 100/57 98/57 O2 Sat by Pulse 95 97 Oximetry 10/19/21 10/19/21 10/19/21 09:30 09:45 10:00 Temperature Pulse Rate 80 80 80 Pulse Rate [ From Monitor] Respiratory 21 20 20 Rate Blood Pressure 96/59 97/57 94/56 O2 Sat by Pulse 96 97 97 Oximetry 10/19/21 10/19/21 10/19/21 10:15 11:55 12:22 Temperature 99.1 F Pulse Rate 80 80 Pulse Rate [ From Monitor] Respiratory 18 Rate Blood Pressure 101/61 120/65 O2 Sat by Pulse 94 93 Oximetry Constitutional: no acute distress, other (elderly and chronically ill looking female with mildly increased respiratory effort at rest) Eyes: non-icteric ENT: oropharynx dry, other (ETT 23 cm JESSICA) Neck: supple, no lymphadenopathy, no JVD Effort: mildly labored Ascultation: Bilateral: diminished breath sounds, rhonchi Percussion: Bilateral: not dull Cardiovascular: regular rate and rhythm Gastrointestinal: normoactive bowel sounds, soft, non-tender, non-distended, other (PEG tube) Integumentary: rash (xeroderma type) Neurologic: pupils equal and round, unable to assess Psychiatric: other (unable to assess re: AMS) CBC and BMP: 10/20/21 05:00 10/20/21 05:00 ABG, PT/INR, D-dimer: ABG ABG pH 7.282 (7.320-7.450) L 10/18/21 09:00 POC ABG pCO2 48.1 mmHg (32.0-48.0) H 10/18/21 09:00 ABG pCO2 57.0 mm Hg 10/15/21 16:42 POC ABG pO2 103.0 mmHg (83-108) 10/18/21 09:00 ABG pO2 75.4 mm Hg (80.0-90.0) L 10/15/21 16:42 POC ABG HCO3 22.2 10/18/21 09:00 ABG O2 Saturation 97.0 (0-100) 10/18/21 09:00 PT/INR, D-dimer PT 14.6 Sec. (12.2-14.9) 10/15/21 16:15 INR 1.03 (0.87-1.13) 10/15/21 16:15 D-Dimer 2424.98 ng/mlDDU (0-234) H 10/18/21 04:40 Abnormal lab findings: Abnormal Labs 10/15/21 10/15/21 10/15/21 16:15 16:15 16:15 WBC 17.2 H RBC Hgb 9.0 L Hct 29.7 L MCV 78 L MCH 24 L RDW 17.5 H Seg Neuts % (Manual) 88.0 H Lymphocytes % (Manual) 3.0 L Seg Neutrophils # Man 15.1 H Lymphocytes # (Manual) 0.5 L APTT 38.0 H D-Dimer 7433.97 H Heparin Anti-Xa Level ABG pH POC ABG pCO2 ABG pO2 ABG HCO3 ABG O2 Saturation ABG Base Excess ABG Hemoglobin ABG Sodium ABG Chloride ABG Glucose Oxyhemoglobin Sodium Potassium Chloride BUN Glucose POC Glucose Lactic Acid 5.60 H* Calcium Phosphorus Magnesium Ferritin Direct Bilirubin Lactate Dehydrogenase Troponin T C-Reactive Protein NT-Pro-B Natriuret Pep Total Protein Albumin LDL Cholesterol Direct HDL Cholesterol Arterial Blood Glucose Salicylates Acetaminophen Coronavirus (PCR) 10/15/21 10/15/21 10/15/21 16:15 16:15 16:15 WBC RBC Hgb Hct MCV MCH RDW Seg Neuts % (Manual) Lymphocytes % (Manual) Seg Neutrophils # Man Lymphocytes # (Manual) APTT D-Dimer Heparin Anti-Xa Level ABG pH POC ABG pCO2 ABG pO2 ABG HCO3 ABG O2 Saturation ABG Base Excess ABG Hemoglobin ABG Sodium ABG Chloride ABG Glucose Oxyhemoglobin Sodium 134 L Potassium Chloride 89.6 L BUN 27 H Glucose 234 H POC Glucose Lactic Acid Calcium Phosphorus Magnesium 1.40 L Ferritin Direct Bilirubin 0.3 H Lactate Dehydrogenase Troponin T C-Reactive Protein NT-Pro-B Natriuret Pep 6606 H Total Protein 6.2 L Albumin 3.1 L LDL Cholesterol Direct HDL Cholesterol Arterial Blood Glucose Salicylates < 0.3 L Acetaminophen 5.0 L Coronavirus (PCR) 10/15/21 10/15/21 10/15/21 16:15 16:15 16:15 WBC RBC Hgb Hct MCV MCH RDW Seg Neuts % (Manual) Lymphocytes % (Manual) Seg Neutrophils # Man Lymphocytes # (Manual) APTT D-Dimer Heparin Anti-Xa Level ABG pH POC ABG pCO2 ABG pO2 ABG HCO3 ABG O2 Saturation ABG Base Excess ABG Hemoglobin ABG Sodium ABG Chloride ABG Glucose Oxyhemoglobin Sodium Potassium Chloride BUN Glucose 221 H POC Glucose Lactic Acid Calcium Phosphorus Magnesium Ferritin 418.8 H 421.6 H Direct Bilirubin Lactate Dehydrogenase 233 H Troponin T C-Reactive Protein 25.90 H NT-Pro-B Natriuret Pep Total Protein Albumin LDL Cholesterol Direct HDL Cholesterol Arterial Blood Glucose Salicylates Acetaminophen Coronavirus (PCR) 10/15/21 10/15/21 10/15/21 16:42 18:00 18:00 WBC RBC Hgb Hct MCV MCH RDW Seg Neuts % (Manual) Lymphocytes % (Manual) Seg Neutrophils # Man Lymphocytes # (Manual) APTT D-Dimer Heparin Anti-Xa Level ABG pH 7.348 L POC ABG pCO2 ABG pO2 75.4 L ABG HCO3 30.6 H ABG O2 Saturation 94.3 L ABG Base Excess 3.9 H ABG Hemoglobin 10.9 L ABG Sodium ABG Chloride ABG Glucose Oxyhemoglobin 93.1 L Sodium Potassium Chloride BUN Glucose POC Glucose Lactic Acid 3.10 H* Calcium Phosphorus Magnesium Ferritin Direct Bilirubin Lactate Dehydrogenase Troponin T 0.036 H C-Reactive Protein NT-Pro-B Natriuret Pep Total Protein Albumin LDL Cholesterol Direct 46 L HDL Cholesterol 25 L Arterial Blood Glucose Salicylates Acetaminophen Coronavirus (PCR) 10/15/21 10/16/21 10/16/21 20:58 01:55 04:50 WBC RBC Hgb Hct MCV MCH RDW Seg Neuts % (Manual) Lymphocytes % (Manual) Seg Neutrophils # Man Lymphocytes # (Manual) APTT D-Dimer Heparin Anti-Xa Level ABG pH 7.490 H POC ABG pCO2 ABG pO2 ABG HCO3 ABG O2 Saturation ABG Base Excess ABG Hemoglobin 9.7 L ABG Sodium 128.9 L ABG Chloride 96.0 L ABG Glucose 235 H Oxyhemoglobin Sodium 135 L Potassium Chloride 94.9 L BUN 28 H Glucose 226 H POC Glucose Lactic Acid Calcium Phosphorus Magnesium Ferritin Direct Bilirubin Lactate Dehydrogenase Troponin T 0.038 H C-Reactive Protein NT-Pro-B Natriuret Pep Total Protein Albumin LDL Cholesterol Direct HDL Cholesterol Arterial Blood Glucose 235 H Salicylates Acetaminophen Coronavirus (PCR) 10/16/21 10/16/21 10/16/21 09:05 09:05 09:05 WBC 14.9 H RBC 3.20 L Hgb 7.6 L Hct 24.8 L MCV 77 L MCH 24 L RDW 17.5 H Seg Neuts % (Manual) Lymphocytes % (Manual) Seg Neutrophils # Man Lymphocytes # (Manual) APTT D-Dimer Heparin Anti-Xa Level ABG pH POC ABG pCO2 ABG pO2 ABG HCO3 ABG O2 Saturation ABG Base Excess ABG Hemoglobin ABG Sodium ABG Chloride ABG Glucose Oxyhemoglobin Sodium 132 L Potassium Chloride 93.2 L BUN 28 H Glucose 225 H POC Glucose Lactic Acid 2.30 H* Calcium 8.3 L Phosphorus Magnesium 1.30 L Ferritin Direct Bilirubin Lactate Dehydrogenase Troponin T C-Reactive Protein NT-Pro-B Natriuret Pep Total Protein 5.7 L Albumin 2.4 L LDL Cholesterol Direct HDL Cholesterol Arterial Blood Glucose Salicylates Acetaminophen Coronavirus (PCR) 10/16/21 10/16/21 10/16/21 09:05 09:36 12:24 WBC RBC Hgb Hct MCV MCH RDW Seg Neuts % (Manual) Lymphocytes % (Manual) Seg Neutrophils # Man Lymphocytes # (Manual) APTT D-Dimer Heparin Anti-Xa Level ABG pH POC ABG pCO2 ABG pO2 ABG HCO3 ABG O2 Saturation ABG Base Excess ABG Hemoglobin ABG Sodium ABG Chloride ABG Glucose Oxyhemoglobin Sodium Potassium Chloride BUN Glucose POC Glucose 187 H Lactic Acid Calcium Phosphorus 2.10 L Magnesium Ferritin Direct Bilirubin Lactate Dehydrogenase Troponin T C-Reactive Protein NT-Pro-B Natriuret Pep Total Protein Albumin LDL Cholesterol Direct HDL Cholesterol Arterial Blood Glucose Salicylates Acetaminophen Coronavirus (PCR) Positive A 10/16/21 10/16/21 10/16/21 17:19 21:00 23:31 WBC RBC Hgb Hct MCV MCH RDW Seg Neuts % (Manual) Lymphocytes % (Manual) Seg Neutrophils # Man Lymphocytes # (Manual) APTT D-Dimer Heparin Anti-Xa Level ABG pH POC ABG pCO2 ABG pO2 ABG HCO3 ABG O2 Saturation ABG Base Excess ABG Hemoglobin ABG Sodium ABG Chloride ABG Glucose Oxyhemoglobin Sodium Potassium Chloride BUN Glucose POC Glucose 128 H 132 H Lactic Acid Calcium Phosphorus Magnesium Ferritin Direct Bilirubin Lactate Dehydrogenase 216 H Troponin T C-Reactive Protein 26.90 H NT-Pro-B Natriuret Pep Total Protein Albumin LDL Cholesterol Direct HDL Cholesterol Arterial Blood Glucose Salicylates Acetaminophen Coronavirus (PCR) 10/16/21 10/17/21 10/17/21 23:31 06:02 06:02 WBC 16.7 H RBC 3.16 L Hgb 7.6 L Hct 24.2 L MCV 77 L MCH 24 L RDW 17.7 H Seg Neuts % (Manual) 95.0 H Lymphocytes % (Manual) 1.0 L Seg Neutrophils # Man 15.9 H Lymphocytes # (Manual) 0.2 L APTT D-Dimer Heparin Anti-Xa Level ABG pH POC ABG pCO2 ABG pO2 ABG HCO3 ABG O2 Saturation ABG Base Excess ABG Hemoglobin ABG Sodium ABG Chloride ABG Glucose Oxyhemoglobin Sodium Potassium Chloride BUN 32 H Glucose 163 H POC Glucose Lactic Acid Calcium 7.8 L Phosphorus Magnesium Ferritin 428.7 H Direct Bilirubin Lactate Dehydrogenase Troponin T C-Reactive Protein NT-Pro-B Natriuret Pep Total Protein 5.7 L Albumin 2.3 L LDL Cholesterol Direct HDL Cholesterol Arterial Blood Glucose Salicylates Acetaminophen Coronavirus (PCR) 10/17/21 10/17/21 10/17/21 06:02 06:02 06:21 WBC RBC Hgb Hct MCV MCH RDW Seg Neuts % (Manual) Lymphocytes % (Manual) Seg Neutrophils # Man Lymphocytes # (Manual) APTT D-Dimer Heparin Anti-Xa Level ABG pH POC ABG pCO2 ABG pO2 ABG HCO3 ABG O2 Saturation ABG Base Excess ABG Hemoglobin ABG Sodium ABG Chloride ABG Glucose Oxyhemoglobin Sodium Potassium 3.5 L Chloride BUN 32 H Glucose 216 H POC Glucose 219 H Lactic Acid Calcium Phosphorus Magnesium 1.40 L Ferritin Direct Bilirubin 0.3 H Lactate Dehydrogenase 257 H Troponin T C-Reactive Protein 28.50 H NT-Pro-B Natriuret Pep Total Protein 5.8 L Albumin 2.3 L LDL Cholesterol Direct HDL Cholesterol Arterial Blood Glucose Salicylates Acetaminophen Coronavirus (PCR) 10/17/21 10/17/21 10/17/21 08:35 12:38 17:35 WBC RBC Hgb Hct MCV MCH RDW Seg Neuts % (Manual) Lymphocytes % (Manual) Seg Neutrophils # Man Lymphocytes # (Manual) APTT D-Dimer Heparin Anti-Xa Level ABG pH POC ABG pCO2 ABG pO2 ABG HCO3 ABG O2 Saturation ABG Base Excess ABG Hemoglobin ABG Sodium ABG Chloride ABG Glucose Oxyhemoglobin Sodium Potassium Chloride BUN Glucose POC Glucose 216 H 262 H 230 H Lactic Acid Calcium Phosphorus Magnesium Ferritin Direct Bilirubin Lactate Dehydrogenase Troponin T C-Reactive Protein NT-Pro-B Natriuret Pep Total Protein Albumin LDL Cholesterol Direct HDL Cholesterol Arterial Blood Glucose Salicylates Acetaminophen Coronavirus (PCR) 10/17/21 10/17/21 10/18/21 18:20 22:17 00:16 WBC RBC Hgb Hct MCV MCH RDW Seg Neuts % (Manual) Lymphocytes % (Manual) Seg Neutrophils # Man Lymphocytes # (Manual) APTT D-Dimer Heparin Anti-Xa Level 0.24 L ABG pH POC ABG pCO2 ABG pO2 ABG HCO3 ABG O2 Saturation ABG Base Excess ABG Hemoglobin ABG Sodium ABG Chloride ABG Glucose Oxyhemoglobin Sodium Potassium Chloride BUN Glucose POC Glucose 215 H 247 H Lactic Acid Calcium Phosphorus Magnesium Ferritin Direct Bilirubin Lactate Dehydrogenase Troponin T C-Reactive Protein NT-Pro-B Natriuret Pep Total Protein Albumin LDL Cholesterol Direct HDL Cholesterol Arterial Blood Glucose Salicylates Acetaminophen Coronavirus (PCR) 10/18/21 10/18/21 10/18/21 04:40 04:40 05:00 WBC RBC Hgb Hct MCV MCH RDW Seg Neuts % (Manual) Lymphocytes % (Manual) Seg Neutrophils # Man Lymphocytes # (Manual) APTT D-Dimer 2424.98 H Heparin Anti-Xa Level ABG pH POC ABG pCO2 ABG pO2 ABG HCO3 ABG O2 Saturation ABG Base Excess ABG Hemoglobin ABG Sodium ABG Chloride ABG Glucose Oxyhemoglobin Sodium Potassium Chloride BUN 44 H Glucose 286 H POC Glucose Lactic Acid Calcium 7.8 L Phosphorus Magnesium 2.60 H Ferritin Direct Bilirubin Lactate Dehydrogenase Troponin T C-Reactive Protein NT-Pro-B Natriuret Pep Total Protein 5.7 L Albumin 2.2 L LDL Cholesterol Direct HDL Cholesterol Arterial Blood Glucose Salicylates Acetaminophen Coronavirus (PCR) 10/18/21 10/18/21 10/18/21 05:16 05:39 07:29 WBC 16.4 H RBC 3.03 L Hgb 7.3 L Hct 23.5 L MCV 78 L MCH 24 L RDW 17.9 H Seg Neuts % (Manual) Lymphocytes % (Manual) Seg Neutrophils # Man Lymphocytes # (Manual) APTT D-Dimer Heparin Anti-Xa Level ABG pH POC ABG pCO2 ABG pO2 ABG HCO3 ABG O2 Saturation ABG Base Excess ABG Hemoglobin ABG Sodium ABG Chloride ABG Glucose Oxyhemoglobin Sodium Potassium Chloride BUN Glucose POC Glucose 281 H 274 H Lactic Acid Calcium Phosphorus Magnesium Ferritin Direct Bilirubin Lactate Dehydrogenase Troponin T C-Reactive Protein NT-Pro-B Natriuret Pep Total Protein Albumin LDL Cholesterol Direct HDL Cholesterol Arterial Blood Glucose Salicylates Acetaminophen Coronavirus (PCR) 10/18/21 10/18/21 10/18/21 09:00 11:27 11:30 WBC RBC Hgb Hct MCV MCH RDW Seg Neuts % (Manual) Lymphocytes % (Manual) Seg Neutrophils # Man Lymphocytes # (Manual) APTT D-Dimer Heparin Anti-Xa Level 0.24 L ABG pH 7.282 L POC ABG pCO2 48.1 H ABG pO2 ABG HCO3 ABG O2 Saturation ABG Base Excess ABG Hemoglobin 7.6 L ABG Sodium ABG Chloride ABG Glucose 252 H Oxyhemoglobin Sodium Potassium Chloride BUN Glucose POC Glucose 219 H Lactic Acid Calcium Phosphorus Magnesium Ferritin Direct Bilirubin Lactate Dehydrogenase Troponin T C-Reactive Protein NT-Pro-B Natriuret Pep Total Protein Albumin LDL Cholesterol Direct HDL Cholesterol Arterial Blood Glucose 252 H Salicylates Acetaminophen Coronavirus (PCR) 10/18/21 10/18/21 10/18/21 15:58 19:56 23:21 WBC RBC Hgb Hct MCV MCH RDW Seg Neuts % (Manual) Lymphocytes % (Manual) Seg Neutrophils # Man Lymphocytes # (Manual) APTT D-Dimer Heparin Anti-Xa Level 0.22 L ABG pH POC ABG pCO2 ABG pO2 ABG HCO3 ABG O2 Saturation ABG Base Excess ABG Hemoglobin ABG Sodium ABG Chloride ABG Glucose Oxyhemoglobin Sodium Potassium Chloride BUN Glucose POC Glucose 264 H 198 H Lactic Acid Calcium Phosphorus Magnesium Ferritin Direct Bilirubin Lactate Dehydrogenase Troponin T C-Reactive Protein NT-Pro-B Natriuret Pep Total Protein Albumin LDL Cholesterol Direct HDL Cholesterol Arterial Blood Glucose Salicylates Acetaminophen Coronavirus (PCR) 10/19/21 10/19/21 10/19/21 02:40 02:40 02:40 WBC RBC Hgb Hct MCV MCH RDW Seg Neuts % (Manual) Lymphocytes % (Manual) Seg Neutrophils # Man Lymphocytes # (Manual) APTT D-Dimer Heparin Anti-Xa Level ABG pH POC ABG pCO2 ABG pO2 ABG HCO3 ABG O2 Saturation ABG Base Excess ABG Hemoglobin ABG Sodium ABG Chloride ABG Glucose Oxyhemoglobin Sodium Potassium Chloride BUN 49 H Glucose 167 H POC Glucose Lactic Acid Calcium Phosphorus Magnesium Ferritin 383.0 H Direct Bilirubin Lactate Dehydrogenase 223 H Troponin T C-Reactive Protein 9.30 H NT-Pro-B Natriuret Pep Total Protein 6.2 L Albumin 2.5 L LDL Cholesterol Direct HDL Cholesterol Arterial Blood Glucose Salicylates Acetaminophen Coronavirus (PCR) 10/19/21 10/19/21 10/19/21 02:40 02:40 05:06 WBC 15.5 H RBC 3.13 L Hgb 7.5 L Hct 24.3 L MCV 77 L MCH 24 L RDW 17.8 H Seg Neuts % (Manual) Lymphocytes % (Manual) Seg Neutrophils # Man Lymphocytes # (Manual) APTT D-Dimer Heparin Anti-Xa Level 0.17 L ABG pH POC ABG pCO2 ABG pO2 ABG HCO3 ABG O2 Saturation ABG Base Excess ABG Hemoglobin ABG Sodium ABG Chloride ABG Glucose Oxyhemoglobin Sodium Potassium Chloride BUN Glucose POC Glucose 152 H Lactic Acid Calcium Phosphorus Magnesium Ferritin Direct Bilirubin Lactate Dehydrogenase Troponin T C-Reactive Protein NT-Pro-B Natriuret Pep Total Protein Albumin LDL Cholesterol Direct HDL Cholesterol Arterial Blood Glucose Salicylates Acetaminophen Coronavirus (PCR) 10/19/21 11:40 WBC RBC Hgb Hct MCV MCH RDW Seg Neuts % (Manual) Lymphocytes % (Manual) Seg Neutrophils # Man Lymphocytes # (Manual) APTT D-Dimer Heparin Anti-Xa Level ABG pH POC ABG pCO2 ABG pO2 ABG HCO3 ABG O2 Saturation ABG Base Excess ABG Hemoglobin ABG Sodium ABG Chloride ABG Glucose Oxyhemoglobin Sodium Potassium Chloride BUN Glucose POC Glucose 146 H Lactic Acid Calcium Phosphorus Magnesium Ferritin Direct Bilirubin Lactate Dehydrogenase Troponin T C-Reactive Protein NT-Pro-B Natriuret Pep Total Protein Albumin LDL Cholesterol Direct HDL Cholesterol Arterial Blood Glucose Salicylates Acetaminophen Coronavirus (PCR) Chest x-ray: image reviewed Allied health notes reviewed: nursing
--- NOTE | 2021-10-19 13:18 | Progress Note ---
Assessment and Plan - Patient Problems (1) Respiratory failure Current Visit: Yes Status: Acute Plan to address problem: Patient presented with respiratory failure, currently sedated, on the vent. There is no clinical or x-ray evidence of fluid overload or heart failure, there is some mild to moderate cardiomegaly on the chest x-ray, and echocardiogram is pending for left ventricular function assessment. The patient's chest x-ray does show a consolidation in the left lower lobe, consistent with acute pneumonia. COVID-19 test is positive. (2) Cardiac pacemaker Current Visit: Yes Status: Acute Plan to address problem: Patient has a dual-chamber pacemaker in situ, we will request old records including outpatient records to obtain details of her pacemaker and other previ ous cardiac work-up and interventions. Subjective Date of service: 10/19/21 Principal diagnosis: AHRF; Pneumonia; Septic shock; COVID-19 infection; CHF; DVT; NSTEMI Interval history: Patient is unresponsive, on the vent. 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 Objective Vital Signs Temp Pulse Pulse Resp BP Pulse Ox 10/19/21 12:22 80 120/65 93 10/19/21 11:55 99.1 F 10/19/21 10:15 80 18 101/61 94 10/19/21 10:00 80 20 94/56 97 10/19/21 09:45 80 20 97/57 97 10/19/21 09:30 80 21 96/59 96 10/19/21 09:15 80 20 98/57 97 10/19/21 09:00 80 20 100/57 10/19/21 08:52 80 99/56 95 10/19/21 08:45 80 20 99/56 97 10/19/21 08:30 80 22 96/56 97 10/19/21 08:15 80 19 100/57 99 10/19/21 08:00 97.9 F 80 80 18 98/60 99 10/19/21 07:45 80 20 81/51 10/19/21 07:30 80 20 79/50 10/19/21 07:15 80 19 78/48 99 10/19/21 07:00 80 18 81/49 99 10/19/21 06:45 80 18 82/48 98 10/19/21 06:30 80 21 83/49 97 10/19/21 06:15 80 21 83/50 97 10/19/21 06:00 80 20 92/54 96 10/19/21 05:45 80 21 87/51 10/19/21 05:30 80 21 92/52 94 10/19/21 05:15 80 22 95/58 10/19/21 05:00 80 29 H 97/58 92 10/19/21 04:45 80 14 89/53 91 10/19/21 04:30 80 26 H 115/65 94 10/19/21 04:15 80 23 176/86 93 10/19/21 04:01 80 34 H 176/86 91 10/19/21 04:00 80 80 28 H 96 10/19/21 03:57 80 109/60 96 10/19/21 03:45 80 20 109/60 94 10/19/21 03:30 80 28 H 125/65 95 10/19/21 03:15 79 32 H 130/73 97 10/19/21 03:01 80 11 L 119/70 100 10/19/21 02:45 80 19 94/60 100 10/19/21 02:30 80 19 95/62 100 10/19/21 02:15 80 18 99/64 99 10/19/21 02:00 79 21 109/64 97 10/19/21 01:45 79 19 97/61 100 10/19/21 01:30 79 19 95/59 100 10/19/21 01:15 79 23 95/60 83 L 10/19/21 01:00 80 19 90/58 98 10/19/21 00:45 79 21 98/60 99 10/19/21 00:30 79 18 92/58 97 10/19/21 00:15 79 20 92/55 97 10/19/21 00:07 79 100/56 100 10/19/21 00:00 96.6 F L 79 79 19 101/59 99 10/18/21 23:45 79 21 100/56 99 10/18/21 23:30 80 17 96/57 10/18/21 23:21 80 25 H 98/58 99 10/18/21 23:15 80 26 H 98/58 10/18/21 23:01 80 14 93/63 99 10/18/21 22:45 80 17 89/57 10/18/21 22:30 79 16 80/53 10/18/21 22:15 80 18 83/53 10/18/21 22:00 80 19 82/53 96 10/18/21 21:45 80 18 83/53 97 10/18/21 21:30 80 18 86/54 10/18/21 21:15 80 20 87/56 10/18/21 21:00 80 19 89/59 10/18/21 20:45 80 19 86/52 98 10/18/21 20:30 79 17 89/56 97 10/18/21 20:15 79 19 98/61 99 10/18/21 20:09 80 87/59 98 10/18/21 20:00 97.2 F L 80 80 20 106/63 99 10/18/21 19:45 81 16 106/63 98 10/18/21 19:30 79 18 87/59 97 10/18/21 19:15 79 17 95/60 10/18/21 19:00 79 18 99/61 10/18/21 18:45 79 17 98/68 92 10/18/21 18:30 80 20 118/72 93 10/18/21 18:15 84 25 H 97/59 95 10/18/21 18:00 80 18 97/59 100 10/18/21 17:45 80 18 96/59 10/18/21 17:30 80 17 93/55 10/18/21 17:15 80 17 87/51 10/18/21 17:00 80 18 90/55 10/18/21 16:45 80 17 89/53 10/18/21 16:30 79 19 87/53 99 10/18/21 16:15 80 16 87/54 10/18/21 16:00 96.8 F L 80 20 92/59 100 10/18/21 15:46 80 96/57 100 10/18/21 15:45 80 19 96/57 10/18/21 15:30 79 18 87/53 10/18/21 15:15 79 17 85/52 98 10/18/21 15:00 80 20 87/53 10/18/21 14:45 80 18 91/54 99 10/18/21 14:30 80 18 96/61 100 10/18/21 14:15 79 18 80/49 10/18/21 14:00 80 19 81/48 99 10/18/21 13:45 80 17 89/55 10/18/21 13:30 80 16 95/63 - Physical Examination General: Other (Unresponsive, on the ventilator) HEENT: Positive: Other (Pupils fixed) Neck: Positive: neck supple Cardiac: Positive: Irregularly Regular Lungs: Positive: Decreased Breath Sounds Neuro: Positive: Other (Unresponsive, on the ventilator) Abdomen: Positive: Soft Skin: Positive: Clear Extremities: Absent: edema - Labs and Meds Cardiac Enzymes 10/19/21 10/19/21 Range/Units 02:40 02:40 AST 14 (5-40) units/L Lactate Dehydrogenase 223 H (91-180) units/L Lipids 10/19/21 Range/Units 02:40 Triglycerides 82 (2-149) mg/dL CBC 10/19/21 Range/Units 02:40 WBC 15.5 H (4.5-11.0) K/mm3 RBC 3.13 L (3.65-5.03) M/mm3 Hgb 7.5 L (10.1-14.3) gm/dl Hct 24.3 L (30.3-42.9) % Plt Count 345 (140-440) K/mm3 Comprehensive Metabolic Panel 10/19/21 Range/Units 02:40 Sodium 139 (137-145) mmol/L Potassium 4.0 (3.6-5.0) mmol/L Chloride 104.7 (98-107) mmol/L Carbon Dioxide 22 (22-30) mmol/L BUN 49 H (7-17) mg/dL Creatinine 1.2 (0.6-1.2) mg/dL Glucose 167 H (65-100) mg/dL Calcium 8.4 (8.4-10.2) mg/dL AST 14 (5-40) units/L ALT 13 (7-56) units/L Alkaline Phosphatase 55 (35-129) units/L Total Protein 6.2 L (6.3-8.2) g/dL Albumin 2.5 L (3.9-5) g/dL Pacemaker: ventricular pacing w/capt - Allied health notes Allied health notes reviewed: nursing
--- NOTE | 2021-10-19 14:05 | XRay Report ---
CHEST 1 VIEW 10/19/2021 12:31 PM INDICATION / CLINICAL INFORMATION: hypoxia. COMPARISON: 10/15/2021 FINDINGS: SUPPORT DEVICES: ET tube, esophageal pH probe, right IJ CVL and left subclavian pacemaker again proje ct in expected position HEART / MEDIASTINUM: Stable moderate cardiomegaly LUNGS / PLEURA: Bilateral parenchymal disease, unchanged No pneumothorax. ADDITIONAL FINDINGS: No significant additional findings. IMPRESSION: 1. Stable bilateral pneumonia Signer Name: Willy Champion MD Signed: 10/19/2021 2:00 PM Workstation Name: [id number]
--- NOTE | 2021-10-19 16:03 | Hem/Onc Consultation ---
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 DATA REVIEWED BELOW IMP: Clotting tendency Chronic right leg DVT , new appearing bilateral lower extremity DVTs Anemia likely related to iron deficiency anemia with MCV 77 R/o recent bleed Leukocytosis likely related to covid infection REC/PLAN: Transition from heparin gtt to daily lovenox Labs to include cbc, fibrinogen, iron panel Plan for IV iron infusion Laboratory Last Values WBC 15.5 K/mm3 (4.5-11.0) H 10/19/21 02:40 RBC 3.13 M/mm3 (3.65-5.03) L 10/19/21 02:40 Hgb 7.5 gm/dl (10.1-14.3) L 10/19/21 02:40 Hct 24.3 % (30.3-42.9) L 10/19/21 02:40 MCV 77 fl (79-97) L 10/19/21 02:40 MCH 24 pg (28-32) L 10/19/21 02:40 MCHC 31 % (30-34) 10/19/21 02:40 RDW 17.8 % (13.2-15.2) H 10/19/21 02:40 Plt Count 345 K/mm3 (140-440) 10/19/21 02:40 Add Manual Diff Complete 10/17/21 06:02 Total Counted 100 10/17/21 06:02 Seg Neutrophils % [employer] 10/17/21 06:02 Seg Neuts % (Manual) 95.0 % (40.0-70.0) H 10/17/21 06:02 Band Neutrophils % 0 % 10/17/21 06:02 Lymphocytes % (Manual) 1.0 % (13.4-35.0) L 10/17/21 06:02 Reactive Lymphs % (Man) 0 % 10/17/21 06:02 Monocytes % (Manual) 4.0 % (0.0-7.3) 10/17/21 06:02 Eosinophils % (Manual) 0 % (0.0-4.3) 10/17/21 06:02 Basophils % (Manual) 0 % (0.0-1.8) 10/17/21 06:02 Metamyelocytes % 0 % 10/17/21 06:02 Myelocytes % 0 % 10/17/21 06:02 Promyelocytes % 0 % 10/17/21 06:02 Blast Cells % 0 % 10/17/21 06:02 Nucleated RBC % Not Reportable 10/17/21 06:02 Seg Neutrophils # Man 15.9 K/mm3 (1.8-7.7) H 10/17/21 06:02 Band Neutrophils # 0.0 K/mm3 10/17/21 06:02 Lymphocytes # (Manual) 0.2 K/mm3 (1.2-5.4) L 10/17/21 06:02 Abs React Lymphs (Man) 0.0 K/mm3 10/17/21 06:02 Monocytes # (Manual) 0.7 K/mm3 (0.0-0.8) 10/17/21 06:02 Eosinophils # (Manual) 0.0 K/mm3 (0.0-0.4) 10/17/21 06:02 Basophils # (Manual) 0.0 K/mm3 (0.0-0.1) 10/17/21 06:02 Metamyelocytes # 0.0 K/mm3 10/17/21 06:02 Myelocytes # 0.0 K/mm3 10/17/21 06:02 Promyelocytes # 0.0 K/mm3 10/17/21 06:02 Blast Cells # 0.0 K/mm3 10/17/21 06:02 WBC Morphology Not Reportable 10/17/21 06:02 Hypersegmented Neuts Not Reportable 10/17/21 06:02 Hyposegmented Neuts Not Reportable 10/17/21 06:02 Hypogranular Neuts Not Reportable 10/17/21 06:02 Smudge Cells Not Reportable 10/17/21 06:02 Toxic Granulation Not Reportable 10/17/21 06:02 Toxic Vacuolation Not Reportable 10/17/21 06:02 Dohle Bodies Not Reportable 10/17/21 06:02 Pelger-Huet Anomaly Not Reportable 10/17/21 06:02 Girma Rods Not Reportable 10/17/21 06:02 Platelet Estimate Consistent w auto 10/17/21 06:02 Clumped Platelets Not Reportable 10/17/21 06:02 Plt Clumps, EDTA Not Reportable 10/17/21 06:02 Large Platelets Not Reportable 10/17/21 06:02 Giant Platelets Not Reportable 10/17/21 06:02 Platelet Satelliting Not Reportable 10/17/21 06:02 Plt Morphology Comment Not Reportable 10/17/21 06:02 RBC Morphology Not Reportable 10/17/21 06:02 Dimorphic RBCs Not Reportable 10/17/21 06:02 Polychromasia Not Reportable 10/17/21 06:02 Hypochromasia 1+ 10/17/21 06:02 Poikilocytosis 1+ 10/17/21 06:02 Anisocytosis 1+ 10/17/21 06:02 Microcytosis Not Reportable 10/17/21 06:02 Macrocytosis Not Reportable 10/17/21 06:02 Spherocytes Not Reportable 10/17/21 06:02 Pappenheimer Bodies Not Reportable 10/17/21 06:02 Sickle Cells Not Reportable 10/17/21 06:02 Target Cells 1+ 10/17/21 06:02 Tear Drop Cells Not Reportable 10/17/21 06:02 Ovalocytes Not Reportable 10/17/21 06:02 Helmet Cells Not Reportable 10/17/21 06:02 Vaz-Huntington Bodies Not Reportable 10/17/21 06:02 [place]on Rings Not Reportable 10/17/21 06:02 Clifton Cells Not Reportable 10/17/21 06:02 Bite Cells Not Reportable 10/17/21 06:02 Crenated Cell Not Reportable 10/17/21 06:02 Elliptocytes Not Reportable 10/17/21 06:02 Acanthocytes (Spur) Not Reportable 10/17/21 06:02 Rouleaux Not Reportable 10/17/21 06:02 Hemoglobin C Crystals Not Reportable 10/17/21 06:02 Schistocytes Not Reportable 10/17/21 06:02 Malaria parasites Not Reportable 10/17/21 06:02 Brodie Bodies Not Reportable 10/17/21 06:02 Hem Pathologist Commnt No 10/17/21 06:02 PT 14.6 Sec. (12.2-14.9) 10/15/21 16:15 INR 1.03 (0.87-1.13) 10/15/21 16:15 APTT 38.0 Sec. (24.2-36.6) H 10/15/21 16:15 D-Dimer 2424.98 ng/mlDDU (0-234) H 10/18/21 04:40 Heparin Anti-Xa Level 0.47 U.I./ml (0.3-0.7) 10/19/21 10:10 ABG pH 7.282 (7.320-7.450) L 10/18/21 09:00 POC ABG pCO2 48.1 mmHg (32.0-48.0) H 10/18/21 09:00 ABG pCO2 57.0 mm Hg 10/15/21 16:42 POC ABG pO2 103.0 mmHg (83-108) 10/18/21 09:00 ABG pO2 75.4 mm Hg (80.0-90.0) L 10/15/21 16:42 POC ABG HCO3 22.2 10/18/21 09:00 ABG HCO3 30.6 mmol/L (20.0-26.0) H 10/15/21 16:42 ABG O2 Saturation 97.0 (0-100) 10/18/21 09:00 ABG O2 Content 14.3 (0.0-44) 10/15/21 16:42 POC ABG Base Excess -4.3 10/18/21 09:00 ABG Base Excess 3.9 mmol/L (-2.0-3.0) H 10/15/21 16:42 ABG Hemoglobin 7.6 (12.0-17.5) L 10/18/21 09:00 ABG Oxyhemoglobin 95.4 (94-98) 10/18/21 09:00 ABG Carboxyhemoglobin 0.8 % (0.0-5.0) 10/15/21 16:42 ABG Methemoglobin 0.3 (0.0-1.5) 10/18/21 09:00 ABG Sodium 136.8 mmol/L (136.0-145.0) 10/18/21 09:00 ABG Potassium 4.0 mmol/L (3.40-4.50) 10/18/21 09:00 ABG Chloride 104.0 mmol/L (98-107) 10/18/21 09:00 ABG Glucose 252 mg/dL (65-95) H 10/18/21 09:00 Oxyhemoglobin 93.1 % (95.0-99.0) L 10/15/21 16:42 Carboxyhemoglobin 1.3 (0.5-1.5) 10/18/21 09:00 FiO2 100 % 10/15/21 16:42 FiO2 % 50 10/18/21 09:00 Sodium 139 mmol/L (137-145) 10/19/21 02:40 Potassium 4.0 mmol/L (3.6-5.0) 10/19/21 02:40 Chloride 104.7 mmol/L (98-107) 10/19/21 02:40 Carbon Dioxide 22 mmol/L (22-30) 10/19/21 02:40 Anion Gap 16 mmol/L 10/19/21 02:40 BUN 49 mg/dL (7-17) H 10/19/21 02:40 Creatinine 1.2 mg/dL (0.6-1.2) 10/19/21 02:40 Estimated GFR 51 ml/min 10/19/21 02:40 BUN/Creatinine Ratio 41 % 10/19/21 02:40 Glucose 167 mg/dL (65-100) H 10/19/21 02:40 POC Glucose 146 mg/dL (70-105) H 10/19/21 11:40 Lactic Acid 1.20 mmol/L (0.7-2.0) 10/17/21 06:02 Calcium 8.4 mg/dL (8.4-10.2) 10/19/21 02:40 Phosphorus 3.80 mg/dL (2.5-4.5) D 10/17/21 06:02 Magnesium 2.60 mg/dL (1.7-2.3) H 10/18/21 04:40 Ferritin 383.0 ng/mL (10.0-200.0) H 10/19/21 02:40 Total Bilirubin 0.30 mg/dL (0.1-1.2) 10/19/21 02:40 Direct Bilirubin 0.3 mg/dL (0-0.2) H 10/17/21 06:02 Indirect Bilirubin 0.1 mg/dL 10/17/21 06:02 AST 14 units/L (5-40) 10/19/21 02:40 ALT 13 units/L (7-56) 10/19/21 02:40 Alkaline Phosphatase 55 units/L (35-129) 10/19/21 02:40 Ammonia 38.0 umol/L (25-60) 10/15/21 16:15 Lactate Dehydrogenase 223 units/L (91-180) H 10/19/21 02:40 Troponin T 0.015 ng/mL (0.00-0.029) 10/18/21 11:30 C-Reactive Protein 9.30 mg/dL (0.00-1.30) H 10/19/21 02:40 NT-Pro-B Natriuret Pep 6606 pg/mL (0-900) H 10/15/21 16:15 Total Protein 6.2 g/dL (6.3-8.2) L 10/19/21 02:40 Albumin 2.5 g/dL (3.9-5) L 10/19/21 02:40 Albumin/Globulin Ratio 0.7 % 10/19/21 02:40 Triglycerides 82 mg/dL (2-149) 10/19/21 02:40 Cholesterol 99 mg/dL (50-199) 10/15/21 18:00 LDL Cholesterol Direct 46 mg/dL (50-130) L 10/15/21 18:00 HDL Cholesterol 25 mg/dL (40-59) L 10/15/21 18:00 Cholesterol/HDL Ratio 3.96 % 10/15/21 18:00 Lipase 19 units/L (13-60) 10/15/21 16:15 Procalcitonin 39.51 ng/mL (<0.15) 10/16/21 23:31 Arterial Blood Glucose 252 mg/dL (65-95) H 10/18/21 09:00 Arterial Blood Ionized Calcium 4.7 mg/dL (4.6-5.3) 10/18/21 09:00 Urine Color Yellow (Yellow) 10/15/21 Unknown Urine Turbidity Cloudy (Clear) 10/15/21 Unknown Urine pH 5.0 (5.0-7.0) 10/15/21 Unknown Ur Specific [place] 1.016 (1.003-1.030) 10/15/21 Unknown Urine Protein >500 mg/dL (Negative) 10/15/21 Unknown Urine Glucose (UA) 50 mg/dL (Negative) 10/15/21 Unknown Urine Ketones Neg mg/dL (Negative) 10/15/21 Unknown Urine Blood Neg (Negative) 10/15/21 Unknown Urine Nitrite Neg (Negative) 10/15/21 Unknown Urine Bilirubin Neg (Negative) 10/15/21 Unknown Urine Urobilinogen < 2.0 mg/dL (<2.0) 10/15/21 Unknown Ur Leukocyte Esterase Neg (Negative) 10/15/21 Unknown Urine WBC (Auto) 5.0 /HPF (0.0-6.0) 10/15/21 Unknown Urine RBC (Auto) 2.0 /HPF (0.0-6.0) 10/15/21 Unknown U Epithel Cells (Auto) 2.0 /HPF (0-13.0) 10/15/21 Unknown Urine Bacteria (Auto) 1+ /HPF (Negative) 10/15/21 Unknown Calcium Oxalate Crystal 1+ 10/15/21 Unknown Amorphous Crystals 3+ 10/15/21 Unknown Urine Mucus Few /HPF 10/15/21 Unknown Urine Yeast (Budding) 1+ /HPF 10/15/21 Unknown Salicylates < 0.3 mg/dL (2.8-20.0) L 10/15/21 16:15 Urine Opiates Screen Negative 10/15/21 Unknown Urine Methadone Screen Negative 10/15/21 Unknown Acetaminophen 5.0 ug/mL (10.0-30.0) L 10/15/21 16:15 Ur Barbiturates Screen Negative 10/15/21 Unknown Ur Phencyclidine Scrn Negative 10/15/21 Unknown Ur Amphetamines Screen Negative 10/15/21 Unknown U Benzodiazepines Scrn Negative 10/15/21 Unknown Urine Cocaine Screen Negative 10/15/21 Unknown U Marijuana (THC) Screen Negative 10/15/21 Unknown Drugs of Abuse Note Disclamer 10/15/21 Unknown Coronavirus (PCR) Positive (Negative) A 10/16/21 09:36 Past History Past Medical History: hypertension Past Surgical History: Other (Cardiac pacemaker) Medications and Allergies Allergies Allergy/AdvReac Type Severity Reaction Status Date / Time lisinopril Allergy Unknown Verified 10/16/21 12:24 Home Medications Medication Instructions Recorded Confirmed Last Taken Type Metformin HCl 1,000 mg PO BID 10/15/21 10/15/21 Unknown History Triamterene-Hctz 37.5-25 mg Cp 1 tab PO DAILY 10/15/21 10/15/21 Unknown History XARELTO (see DOAC order set to 2.5 mg PO BID 10/15/21 10/15/21 Unknown History order) levETIRAcetam [Keppra TAB] 1 tab PO BID 10/15/21 10/15/21 Unknown History Active Meds: Active Medications Acetaminophen (Acetaminophen 325 Mg Tab) 650 mg PO Q4H PRN PRN Reason: Pain MILD(1-3)/Fever >100.5/KEYS Last Admin: 10/16/21 21:51 Dose: 650 mg Lipase/Protease/Amylase (Lipase 10,500/Protease 25,000/Amylase 43,750 (Units) Dr Schuler) 1 each FEEDTUBE PRN PRN PRN Reason: For Clogged Feeding Tube Ascorbic Acid (Ascorbic Acid 500 Mg Tab) 500 mg PO QDAY [facility] Last Admin: 10/19/21 09:58 Dose: 500 mg Cholecalciferol (Cholecalciferol (Vit D3) 5,000 Unit Tab) 5,000 unit PO DAILY [facility] Last Admin: 10/19/21 09:57 Dose: 5,000 unit Dexamethasone (Dexamethasone 4 Mg Tab) 8 mg FEEDTUBE QDAY [facility] Stop: 10/25/21 10:01 Last Admin: 10/19/21 09:58 Dose: 8 mg Famotidine (Famotidine 20 Mg Tab) 20 mg FEEDTUBE BID [facility] Last Admin: 10/19/21 09:58 Dose: 20 mg Heparin Sodium (Porcine) (Heparin 10,000 Units/10 Ml Vial) 2,000 unit IV Q6H PRN PRN Reason: Anti-Xa Assay < 0.1 units/ml Propofol (Diprivan 10 Mg/Ml) 1,000 mg in 100 mls @ 1.633 mls/hr IV TITR [facility]; Protocol Last Admin: 10/19/21 13:20 Dose: 20 mcg/kg/min, 6.532 mls/hr NORepinephrine/NS 8 MG-250 ML (Norepinephrine/Ns 8 Mg-250 Ml (Double Conc)) 8 mg in 250 mls @ 3.75 mls/hr IV TITRATE [facility]; Protocol Last Admin: 10/17/21 03:13 Dose: 1 mcg/min, 1.875 mls/hr Vancomycin HCl 750 mg/ Sodium (Chloride) 265 mls @ 166.667 mls/hr IV Q24H [facility] Last Admin: 10/18/21 19:43 Dose: 166.667 mls/hr Cefepime HCl (Cefepime/Ns 2 Gm/100 Ml) 2 gm in 100 mls @ 200 mls/hr IV Q12H [facility]; Protocol Last Admin: 10/19/21 13:23 Dose: 200 mls/hr REMDESIVIR 100 mg/ Sodium (Chloride) 250 mls @ 500 mls/hr IV Q24HR@2100 [facility] Stop: 10/20/21 21:29 Last Admin: 10/18/21 21:56 Dose: 500 mls/hr Heparin Sodium/Sodium Chloride (Heparin/ 0.45% Nacl-25,000 Unit/500 Ml) 25,000 unit in 500 mls @ 16 mls/hr IV TITR [facility]; Protocol Last Titration: 10/19/21 12:05 Dose: 1,000 units/hr, 20 mls/hr Insulin Glargine (Insulin Glargine 100 Units/Ml) 15 units SUB-Q QHS [facility] Last Admin: 10/18/21 22:25 Dose: 15 units Insulin Human Lispro (Insulin Lispro 100 Unit/Ml) 0 unit SUB-Q Q6HR [facility]; Protocol Last Admin: 10/19/21 12:07 Dose: Not Given Levetiracetam (Levetiracetam 500 Mg/5 Ml Oral Liqd) 500 mg PO BID [facility] Last Admin: 10/19/21 09:57 Dose: 500 mg Metoclopramide HCl (Metoclopramide 10 Mg/2 Ml Inj) 10 mg IV Q6H PRN PRN Reason: Nausea And Vomiting Ondansetron HCl (Ondansetron 4 Mg/2 Ml Inj) 4 mg IV Q3H PRN PRN Reason: Nausea And Vomiting Senna/Docusate Sodium (Sennosides/Docusate Sodium 8.6/50 Mg Tab) 1 tab FEEDTUBE QHS [facility] Last Admin: 10/18/21 22:25 Dose: 1 tab Simple Syrup (Simple Syrup 15 Ml) 15 ml FEEDTUBE PRN PRN PRN Reason: Hypoglycemia Simple Syrup (Simple Syrup 15 Ml) 30 ml FEEDTUBE PRN PRN PRN Reason: Hypoglycemia Sodium Bicarbonate (Sodium Bicarbonate 325 Mg Tab) 325 mg FEEDTUBE PRN PRN PRN Reason: For Clogged Feeding Tube Sodium Chloride (Sodium Chloride 0.9% 10 Ml Flush Syringe) 10 ml IV BID [facility] Last Admin: 10/19/21 09:58 Dose: 10 ml Sodium Chloride (Sodium Chloride 0.9% 10 Ml Flush Syringe) 10 ml IV PRN PRN PRN Reason: LINE FLUSH Sodium Chloride (Sodium Chloride 0.9% 1000 Ml Iv Soln) 5 ml IV PRN PRN PRN Reason: CVP Sodium Chloride (Sodium Chloride 0.9% 50 Ml Ivpb) 50 ml IV Q24HR@2100 [facility] Stop: 10/20/21 21:01 Last Admin: 10/18/21 21:56 Dose: 50 ml Zinc Sulfate (Zinc Sulfate 220 Mg Cap) 220 mg PO BID [facility] Last Admin: 10/19/21 09:58 Dose: 220 mg Exam - Constitutional Vitals: Last Vital Signs Temp 99.1 F 10/19/21 11:55 Pulse 80 10/19/21 13:30 Resp 21 10/19/21 13:30 BP 119/62 10/19/21 13:30 Pulse Ox 97 10/19/21 13:30 Results - Labs lab Results: Laboratory Results - last 24 hr 10/18/21 10/18/21 10/18/21 15:58 19:56 23:21 WBC RBC Hgb Hct MCV MCH MCHC RDW Plt Count Heparin Anti-Xa Level 0.22 L Sodium Potassium Chloride Carbon Dioxide Anion Gap BUN Creatinine Estimated GFR BUN/Creatinine Ratio Glucose POC Glucose 264 H 198 H Calcium Ferritin Total Bilirubin AST ALT Alkaline Phosphatase Lactate Dehydrogenase C-Reactive Protein Total Protein Albumin Albumin/Globulin Ratio Triglycerides 10/19/21 10/19/21 10/19/21 02:40 02:40 02:40 WBC RBC Hgb Hct MCV MCH MCHC RDW Plt Count Heparin Anti-Xa Level Sodium 139 Potassium 4.0 Chloride 104.7 Carbon Dioxide 22 Anion Gap 16 BUN 49 H Creatinine 1.2 Estimated GFR 51 BUN/Creatinine Ratio 41 Glucose 167 H POC Glucose Calcium 8.4 Ferritin 383.0 H Total Bilirubin 0.30 AST 14 ALT 13 Alkaline Phosphatase 55 Lactate Dehydrogenase 223 H C-Reactive Protein 9.30 H Total Protein 6.2 L Albumin 2.5 L Albumin/Globulin Ratio 0.7 Triglycerides 82 10/19/21 10/19/21 10/19/21 02:40 02:40 05:06 WBC 15.5 H RBC 3.13 L Hgb 7.5 L Hct 24.3 L MCV 77 L MCH 24 L MCHC 31 RDW 17.8 H Plt Count 345 Heparin Anti-Xa Level 0.17 L Sodium Potassium Chloride Carbon Dioxide Anion Gap BUN Creatinine Estimated GFR BUN/Creatinine Ratio Glucose POC Glucose 152 H Calcium Ferritin Total Bilirubin AST ALT Alkaline Phosphatase Lactate Dehydrogenase C-Reactive Protein Total Protein Albumin Albumin/Globulin Ratio Triglycerides 10/19/21 10/19/21 10:10 11:40 WBC RBC Hgb Hct MCV MCH MCHC RDW Plt Count Heparin Anti-Xa Level 0.47 Sodium Potassium Chloride Carbon Dioxide Anion Gap BUN Creatinine Estimated GFR BUN/Creatinine Ratio Glucose POC Glucose 146 H Calcium Ferritin Total Bilirubin AST ALT Alkaline Phosphatase Lactate Dehydrogenase C-Reactive Protein Total Protein Albumin Albumin/Globulin Ratio Triglycerides
--- NOTE | 2021-10-19 16:51 | Progress Note ---
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 A/P: Neuro: Sedated, h/o CVA, Alzheimer's, nonverbal at baseline, seizure disorder -Avoid delirium -Reorientation as needed -Continue home Keppra -Sedated with propofol -RASS goal 0 to -1 -Aspiration/seizure precautions -As needed analgesia -Maintain sleep-wake cycle Cardiac: Hypotension, h/o HTN, CHF, pacemaker placement -Blood pressure monitoring per protocol -s/p vasopressor support with Levophed -Cardiology consulted, appreciate recommendations -Echocardiogram LVEF 45 to 50%, RVSP 45-50 mmHg, moderate left ventricular hypertrophy, trace to small anterior pericardial effusion no tamponade -Hold home antihypertensive regimen at this time -Admit proBNP 6606 -s/p IV Lasix Respiratory: Acute hypoxic respiratory failure -CCM consulted, appreciate recommendations -Intubated on 10/15 with 7 oett at 23 at the lips -A.m. vent settings: Assist-control rate 16, tidal volume 400, PEEP 10, FiO2 40% -See RT notes for titration -A.m. ABG and pm CXR noted -VAP bundle -SPO2 monitoring GI: Protein calorie malnutrition -24 hours +780 ml -PEG tube in place -PPI -NTR consult for tube feedings -BR: Senokot -BM 10/18 : NAD -Strict intake and output -Renally dose medications -Avoid nephrotoxic medications -Daily weights -Trend BMP ID: Severe Sepsis with Shock (POA), COVID 19 PNA, Lactic acidosis, possible aspiration PNA -CXR showed B PNA -CT chest showed B consolidation (left greater than right) -Infectious disease consulted, appreciate recommendations -Antibiotic therapy with cefepime and vancomycin -Procalcitonin 39.5, CRP 26.9 -Droplet/contact precautions -Trend COVID-19 inflammatory markers -Vitamin D/vitamin C/zinc -Dexamethasone 6 mg daily (10/16-10/26) -Remdisivir (10/16-10/21) -Monitor WBC and temperature curve -10/15 Tracheal aspirate with Staph aureus -Patient is already on vancomycin -f/u MRSA PCR Endo: h/o DM -Avoid hypoglycemia -Lantus, titrate as needed -SSI, high-dose -Accu-Cheks q. 6 Heme: Leukocytosis, acute bilateral common femoral DVT -heme-onc consulted, appreciate recommendations -recommends lovenox -CTA chest without PE -Home Xarelto switched to heparin gtt -Bilateral lower extremities doppler ultrasound shows acute bilateral common femoral DVT -Trend CBC -SCDs while in bed -Transfuse hemoglobin less than 7 The high probability of a clinically significant, sudden or life threatening deterioration of the [multi] system(s) required my full and direct attention, intervention and personal management. The aggregate critical care time was [60] minutes. This time is in addition to time spent performing reported procedures but includes the following: [x] Data Review and interpretation [x] Patient assessment and monitoring of vital signs [x] Documentation [x] Medication orders and management Disposition Plan: icu Total Time Spent with Patient (Minutes): 60 History Interval history: This is a 86-year-old female with HTN, CVA (2019), DM, seizure disorder, right lower leg DVT (on Xarelto), nonverbal at baseline, Alzheimer, CHF with pacemaker in situ who presented to the emergency department via EMS for severe respiratory distress with hypoxia. Upon arrival EMS patient was found to be in in respiratory distress and with altered mental status with SPO2 of 70% on room air. She was placed on BiPAP and transferred to the emergency department. In the emergency department patient was intubated for airway protection and increasing oxygen demands. Work-up in the emergency department included a CXR which showed possible aspiration pneumonia, leukocytosis, elevated proBNP, el evated CRP, elevated dddimer, lactic acidosis, hypomagnesemia, hyponatremia and elevated proBNP. Patient was admitted to the hospitalist service with CHF exacerbation, acute hypoxic respiratory failure, possible aspiration pneumonia and is a COVID-19 PUI with consults to [facility] cardiology and infectious disease. 10/16: Patient COVID-19 PCR positive, given IVF, CVP measuring initiated, weaning levophed as tolerated. Started on remdesivir/vit c/vit d/ zinc. 10/17: Acute DVT noted in bilateral common femoral vein patient started on heparin drip, magnesium and potassium repleted, vent changes per [facility]. Started remdesivir yesterday. 10/18: Remains off Levophed, given 500 mL bolus of normal saline. Increase Lantus. Permissive hypercapnia per [facility]. 10/19: Hematology/oncology consulted due to acute on chronic DVT, remains on remdesivir/steroids/vancomycin and cefepime. Tracheal aspirate grew Staph aureus. Levophed remains off. BP and UOP improved after NS bolus yesterday Hospitalist Physical - Physical exam Narrative exam: General appearance: Present: other (Patient is sedated, on the ventilator) - EENT Eyes: Present: PERRL, EOM intact ENT: dentition normal - Neck Neck: Present: normal ROM - Respiratory Respiratory effort: normal Respiratory: bilateral: diminished - Cardiovascular Rhythm: regular Heart Sounds: Present: S1 & S2. Absent: systolic murmur, diastolic murmur - Extremities Extremities: no ischemia, pulses intact, pulses symmetrical, No edema, normal temperature, normal color Peripheral Pulses: within normal limits - Abdominal General gastrointestinal: soft, non-tender, non-distended, normal bowel sounds - Integumentary Integumentary: Present: warm, dry - Psychiatric Psychiatric: cooperative - Neurologic Neurologic: CNII-XII intact, moves all extremities - Allied Health Allied health notes reviewed: nursing, RT, social work - Constitutional Vitals: Temp Pulse Resp BP Pulse Ox 98.1 F 80 21 111/62 97 10/19/21 16:00 10/19/21 16:05 10/19/21 13:30 10/19/21 16:05 10/19/21 16:05 General appearance: Present: other (Patient is sedated, on the ventilator) HEART Score - HEART Score Age: > 65 Risk factors: 1-2 risk factors Troponin: Troponin T 0.015 ng/mL (0.00-0.029) 10/18/21 11:30 Troponin: 1-3x normal limit - Critical Actions Critical Actions: 4-6 pts:12-16.6% risk of adverse cardiac event. Should be admitted Results - Labs CBC & Chem 7: 10/19/21 02:40 10/19/21 02:40 Labs: Laboratory Last Values WBC 15.5 K/mm3 (4.5-11.0) H 10/19/21 02:40 RBC 3.13 M/mm3 (3.65-5.03) L 10/19/21 02:40 Hgb 7.5 gm/dl (10.1-14.3) L 10/19/21 02:40 Hct 24.3 % (30.3-42.9) L 10/19/21 02:40 MCV 77 fl (79-97) L 10/19/21 02:40 MCH 24 pg (28-32) L 10/19/21 02:40 MCHC 31 % (30-34) 10/19/21 02:40 RDW 17.8 % (13.2-15.2) H 10/19/21 02:40 Plt Count 345 K/mm3 (140-440) 10/19/21 02:40 Add Manual Diff Complete 10/17/21 06:02 Total Counted 100 10/17/21 06:02 Seg Neutrophils % [employer] 10/17/21 06:02 Seg Neuts % (Manual) 95.0 % (40.0-70.0) H 10/17/21 06:02 Band Neutrophils % 0 % 10/17/21 06:02 Lymphocytes % (Manual) 1.0 % (13.4-35.0) L 10/17/21 06:02 Reactive Lymphs % (Man) 0 % 10/17/21 06:02 Monocytes % (Manual) 4.0 % (0.0-7.3) 10/17/21 06:02 Eosinophils % (Manual) 0 % (0.0-4.3) 10/17/21 06:02 Basophils % (Manual) 0 % (0.0-1.8) 10/17/21 06:02 Metamyelocytes % 0 % 10/17/21 06:02 Myelocytes % 0 % 10/17/21 06:02 Promyelocytes % 0 % 10/17/21 06:02 Blast Cells % 0 % 10/17/21 06:02 Nucleated RBC % Not Reportable 10/17/21 06:02 Seg Neutrophils # Man 15.9 K/mm3 (1.8-7.7) H 10/17/21 06:02 Band Neutrophils # 0.0 K/mm3 10/17/21 06:02 Lymphocytes # (Manual) 0.2 K/mm3 (1.2-5.4) L 10/17/21 06:02 Abs React Lymphs (Man) 0.0 K/mm3 10/17/21 06:02 Monocytes # (Manual) 0.7 K/mm3 (0.0-0.8) 10/17/21 06:02 Eosinophils # (Manual) 0.0 K/mm3 (0.0-0.4) 10/17/21 06:02 Basophils # (Manual) 0.0 K/mm3 (0.0-0.1) 10/17/21 06:02 Metamyelocytes # 0.0 K/mm3 10/17/21 06:02 Myelocytes # 0.0 K/mm3 10/17/21 06:02 Promyelocytes # 0.0 K/mm3 10/17/21 06:02 Blast Cells # 0.0 K/mm3 10/17/21 06:02 WBC Morphology Not Reportable 10/17/21 06:02 Hypersegmented Neuts Not Reportable 10/17/21 06:02 Hyposegmented Neuts Not Reportable 10/17/21 06:02 Hypogranular Neuts Not Reportable 10/17/21 06:02 Smudge Cells Not Reportable 10/17/21 06:02 Toxic Granulation Not Reportable 10/17/21 06:02 Toxic Vacuolation Not Reportable 10/17/21 06:02 Dohle Bodies Not Reportable 10/17/21 06:02 Pelger-Huet Anomaly Not Reportable 10/17/21 06:02 Girma Rods Not Reportable 10/17/21 06:02 Platelet Estimate Consistent w auto 10/17/21 06:02 Clumped Platelets Not Reportable 10/17/21 06:02 Plt Clumps, EDTA Not Reportable 10/17/21 06:02 Large Platelets Not Reportable 10/17/21 06:02 Giant Platelets Not Reportable 10/17/21 06:02 Platelet Satelliting Not Reportable 10/17/21 06:02 Plt Morphology Comment Not Reportable 10/17/21 06:02 RBC Morphology Not Reportable 10/17/21 06:02 Dimorphic RBCs Not Reportable 10/17/21 06:02 Polychromasia Not Reportable 10/17/21 06:02 Hypochromasia 1+ 10/17/21 06:02 Poikilocytosis 1+ 10/17/21 06:02 Anisocytosis 1+ 10/17/21 06:02 Microcytosis Not Reportable 10/17/21 06:02 Macrocytosis Not Reportable 10/17/21 06:02 Spherocytes Not Reportable 10/17/21 06:02 Pappenheimer Bodies Not Reportable 10/17/21 06:02 Sickle Cells Not Reportable 10/17/21 06:02 Target Cells 1+ 10/17/21 06:02 Tear Drop Cells Not Reportable 10/17/21 06:02 Ovalocytes Not Reportable 10/17/21 06:02 Helmet Cells Not Reportable 10/17/21 06:02 [place] Bodies Not Reportable 10/17/21 06:02 [place] Rings Not Reportable 10/17/21 06:02 [place] Cells Not Reportable 10/17/21 06:02 Bite Cells Not Reportable 10/17/21 06:02 Crenated Cell Not Reportable 10/17/21 06:02 Elliptocytes Not Reportable 10/17/21 06:02 Acanthocytes (Spur) Not Reportable 10/17/21 06:02 Rouleaux Not Reportable 10/17/21 06:02 Hemoglobin C Crystals Not Reportable 10/17/21 06:02 Schistocytes Not Reportable 10/17/21 06:02 Malaria parasites Not Reportable 10/17/21 06:02 Bro[place] Bodies Not Reportable 10/17/21 06:02 Hem Pathologist Commnt No 10/17/21 06:02 PT 14.6 Sec. (12.2-14.9) 10/15/21 16:15 INR 1.03 (0.87-1.13) 10/15/21 16:15 APTT 38.0 Sec. (24.2-36.6) H 10/15/21 16:15 D-Dimer 2424.98 ng/mlDDU (0-234) H 10/18/21 04:40 Heparin Anti-Xa Level 0.47 U.I./ml (0.3-0.7) 10/19/21 10:10 ABG pH 7.282 (7.320-7.450) L 10/18/21 09:00 POC ABG pCO2 48.1 mmHg (32.0-48.0) H 10/18/21 09:00 ABG pCO2 57.0 mm Hg 10/15/21 16:42 POC ABG pO2 103.0 mmHg (83-108) 10/18/21 09:00 ABG pO2 75.4 mm Hg (80.0-90.0) L 10/15/21 16:42 POC ABG HCO3 22.2 10/18/21 09:00 ABG HCO3 30.6 mmol/L (20.0-26.0) H 10/15/21 16:42 ABG O2 Saturation 97.0 (0-100) 10/18/21 09:00 ABG O2 Content 14.3 (0.0-44) 10/15/21 16:42 POC ABG Base Excess -4.3 10/18/21 09:00 ABG Base Excess 3.9 mmol/L (-2.0-3.0) H 10/15/21 16:42 ABG Hemoglobin 7.6 (12.0-17.5) L 10/18/21 09:00 ABG Oxyhemoglobin 95.4 (94-98) 10/18/21 09:00 ABG Carboxyhemoglobin 0.8 % (0.0-5.0) 10/15/21 16:42 ABG Methemoglobin 0.3 (0.0-1.5) 10/18/21 09:00 ABG Sodium 136.8 mmol/L (136.0-145.0) 10/18/21 09:00 ABG Potassium 4.0 mmol/L (3.40-4.50) 10/18/21 09:00 ABG Chloride 104.0 mmol/L (98-107) 10/18/21 09:00 ABG Glucose 252 mg/dL (65-95) H 10/18/21 09:00 Oxyhemoglobin 93.1 % (95.0-99.0) L 10/15/21 16:42 Carboxyhemoglobin 1.3 (0.5-1.5) 10/18/21 09:00 FiO2 100 % 10/15/21 16:42 FiO2 % 50 10/18/21 09:00 Sodium 139 mmol/L (137-145) 10/19/21 02:40 Potassium 4.0 mmol/L (3.6-5.0) 10/19/21 02:40 Chloride 104.7 mmol/L (98-107) 10/19/21 02:40 Carbon Dioxide 22 mmol/L (22-30) 10/19/21 02:40 Anion Gap 16 mmol/L 10/19/21 02:40 BUN 49 mg/dL (7-17) H 10/19/21 02:40 Creatinine 1.2 mg/dL (0.6-1.2) 10/19/21 02:40 Estimated GFR 51 ml/min 10/19/21 02:40 BUN/Creatinine Ratio 41 % 10/19/21 02:40 Glucose 167 mg/dL (65-100) H 10/19/21 02:40 POC Glucose 244 mg/dL (70-105) H 10/19/21 16:06 Lactic Acid 1.20 mmol/L (0.7-2.0) 10/17/21 06:02 Calcium 8.4 mg/dL (8.4-10.2) 10/19/21 02:40 Phosphorus 3.80 mg/dL (2.5-4.5) D 10/17/21 06:02 Magnesium 2.60 mg/dL (1.7-2.3) H 10/18/21 04:40 Ferritin 383.0 ng/mL (10.0-200.0) H 10/19/21 02:40 Total Bilirubin 0.30 mg/dL (0.1-1.2) 10/19/21 02:40 Direct Bilirubin 0.3 mg/dL (0-0.2) H 10/17/21 06:02 Indirect Bilirubin 0.1 mg/dL 10/17/21 06:02 AST 14 units/L (5-40) 10/19/21 02:40 ALT 13 units/L (7-56) 10/19/21 02:40 Alkaline Phosphatase 55 units/L (35-129) 10/19/21 02:40 Ammonia 38.0 umol/L (25-60) 10/15/21 16:15 Lactate Dehydrogenase 223 units/L (91-180) H 10/19/21 02:40 Troponin T 0.015 ng/mL (0.00-0.029) 10/18/21 11:30 C-Reactive Protein 9.30 mg/dL (0.00-1.30) H 10/19/21 02:40 NT-Pro-B Natriuret Pep 6606 pg/mL (0-900) H 10/15/21 16:15 Total Protein 6.2 g/dL (6.3-8.2) L 10/19/21 02:40 Albumin 2.5 g/dL (3.9-5) L 10/19/21 02:40 Albumin/Globulin Ratio 0.7 % 10/19/21 02:40 Triglycerides 82 mg/dL (2-149) 10/19/21 02:40 Cholesterol 99 mg/dL (50-199) 10/15/21 18:00 LDL Cholesterol Direct 46 mg/dL (50-130) L 10/15/21 18:00 HDL Cholesterol 25 mg/dL (40-59) L 10/15/21 18:00 Cholesterol/HDL Ratio 3.96 % 10/15/21 18:00 Lipase 19 units/L (13-60) 10/15/21 16:15 Procalcitonin 39.51 ng/mL (<0.15) 10/16/21 23:31 Arterial Blood Glucose 252 mg/dL (65-95) H 10/18/21 09:00 Arterial Blood Ionized Calcium 4.7 mg/dL (4.6-5.3) 10/18/21 09:00 Urine Color Yellow (Yellow) 10/15/21 Unknown Urine Turbidity Cloudy (Clear) 10/15/21 Unknown Urine pH 5.0 (5.0-7.0) 10/15/21 Unknown Ur Specific [place] 1.016 (1.003-1.030) 10/15/21 Unknown Urine Protein >500 mg/dL (Negative) 10/15/21 Unknown Urine Glucose (UA) 50 mg/dL (Negative) 10/15/21 Unknown Urine Ketones Neg mg/dL (Negative) 10/15/21 Unknown Urine Blood Neg (Negative) 10/15/21 Unknown Urine Nitrite Neg (Negative) 10/15/21 Unknown Urine Bilirubin Neg (Negative) 10/15/21 Unknown Urine Urobilinogen < 2.0 mg/dL (<2.0) 10/15/21 Unknown Ur Leukocyte Esterase Neg (Negative) 10/15/21 Unknown Urine WBC (Auto) 5.0 /HPF (0.0-6.0) 10/15/21 Unknown Urine RBC (Auto) 2.0 /HPF (0.0-6.0) 10/15/21 Unknown U Epithel Cells (Auto) 2.0 /HPF (0-13.0) 10/15/21 Unknown Urine Bacteria (Auto) 1+ /HPF (Negative) 10/15/21 Unknown Calcium Oxalate Crystal 1+ 10/15/21 Unknown Amorphous Crystals 3+ 10/15/21 Unknown Urine Mucus Few /HPF 10/15/21 Unknown Urine Yeast (Budding) 1+ /HPF 10/15/21 Unknown Salicylates < 0.3 mg/dL (2.8-20.0) L 10/15/21 16:15 Urine Opiates Screen Negative 10/15/21 Unknown Urine Methadone Screen Negative 10/15/21 Unknown Acetaminophen 5.0 ug/mL (10.0-30.0) L 10/15/21 16:15 Ur Barbiturates Screen Negative 10/15/21 Unknown Ur Phencyclidine Scrn Negative 10/15/21 Unknown Ur Amphetamines Screen Negative 10/15/21 Unknown U Benzodiazepines Scrn Negative 10/15/21 Unknown Urine Cocaine Screen Negative 10/15/21 Unknown U Marijuana (THC) Screen Negative 10/15/21 Unknown Drugs of Abuse Note Disclamer 10/15/21 Unknown Coronavirus (PCR) Positive (Negative) A 10/16/21 09:36 Microbiology: Microbiology 10/15/21 16:35 Tracheal Aspirate Sputum Culture - Preliminary Staphylococcus Aureus 10/15/21 16:15 Peripheral/Venous Blood Culture - Preliminary NO GROWTH AFTER 72 HOURS 10/15/21 16:15 Peripheral/Venous Blood Culture - Preliminary NO GROWTH AFTER 72 HOURS Magallanes/IV: Voiding Method Indwelling Catheter Active Medications - Current Medications Current Medications: Generic Name Dose Route Start Last Admin Trade Name Freq PRN Reason Stop Dose Admin Acetaminophen 650 mg 10/16/21 00:57 10/16/21 21:51 Acetaminophen 325 Mg Tab PO 650 mg Q4H PRN Administration Pain MILD(1-3)/Fever >100.5/KEYS Lipase/Protease/Amylase 1 each 10/16/21 01:07 Lipase 10,500/Protease 25,000/Amylase 43,750 (Units) Dr Schuler FEEDTUBE PRN PRN For Clogged Feeding Tube Ascorbic Acid 500 mg 10/17/21 10:00 10/19/21 09:58 Ascorbic Acid 500 Mg Tab PO 500 mg QDAY MUNA Administration Cholecalciferol 5,000 unit 10/17/21 10:00 10/19/21 09:57 Cholecalciferol (Vit D3) 5,000 Unit Tab PO 5,000 unit DAILY MUNA Administration Dexamethasone 8 mg 10/16/21 20:00 10/19/21 09:58 Dexamethasone 4 Mg Tab FEEDTUBE 10/25/21 10:01 8 mg QDAY MUNA Administration Famotidine 20 mg 10/17/21 22:00 10/19/21 09:58 Famotidine 20 Mg Tab FEEDTUBE 20 mg BID MUNA Administration Heparin Sodium (Porcine) 2,000 unit 10/17/21 14:00 Heparin 10,000 Units/10 Ml Vial IV Q6H PRN Anti-Xa Assay < 0.1 units/ml Propofol 1,000 mg in 100 mls @ 1.633 mls/hr 10/15/21 16:00 10/19/21 13:20 Diprivan 10 Mg/Ml IV 20 mcg/kg/min TITR MUNA 6.532 mls/hr Administration Protocol 5 MCG/KG/MIN NORepinephrine/NS 8 MG-250 ML 8 mg in 250 mls @ 3.75 mls/hr 10/15/21 18:00 10/17/21 03:13 Norepinephrine/Ns 8 Mg-250 Ml (Double Conc) IV 1 mcg/min TITRATE MUNA 1.875 mls/hr Administration Protocol 2 MCG/MIN Vancomycin HCl 750 mg/ Sodium 265 mls @ 166.667 mls/hr 10/16/21 18:00 10/18/21 19:43 Chloride IV 166.667 mls/hr Q24H MUNA Administration Cefepime HCl 2 gm in 100 mls @ 200 mls/hr 10/16/21 13:00 10/19/21 13:23 Cefepime/Ns 2 Gm/100 Ml IV 200 mls/hr Q12H MUNA Administration Protocol REMDESIVIR 100 mg/ Sodium 250 mls @ 500 mls/hr 10/17/21 21:00 10/18/21 21:56 Chloride IV 10/20/21 21:29 500 mls/hr Q24HR@2100 MUNA Administration Heparin Sodium/Sodium Chloride 25,000 unit in 500 mls @ 16 mls/hr 10/17/21 14:00 10/19/21 12:05 Heparin/ 0.45% Nacl-25,000 Unit/500 Ml IV 1,000 units/hr TITR MUNA 20 mls/hr Titration Protocol 800 UNITS/HR Insulin Glargine 15 units 10/18/21 22:00 10/18/21 22:25 Insulin Glargine 100 Units/Ml SUB-Q 15 units QHS MUNA Administration Insulin Human Lispro 0 unit 10/16/21 09:00 10/19/21 12:07 Insulin Lispro 100 Unit/Ml SUB-Q Not Given Q6HR [facility] Protocol Levetiracetam 500 mg 10/16/21 11:00 10/19/21 09:57 Levetiracetam 500 Mg/5 Ml Oral Liqd PO 500 mg BID MUNA Administration Metoclopramide HCl 10 mg 10/16/21 01:02 Metoclopramide 10 Mg/2 Ml Inj IV Q6H PRN Nausea And Vomiting Ondansetron HCl 4 mg 10/16/21 00:57 Ondansetron 4 Mg/2 Ml Inj IV Q3H PRN Nausea And Vomiting Senna/Docusate Sodium 1 tab 10/16/21 22:00 10/18/21 22:25 Sennosides/Docusate Sodium 8.6/50 Mg Tab FEEDTUBE 1 tab QHS MUNA Administration Simple Syrup 15 ml 10/16/21 01:07 Simple Syrup 15 Ml FEEDTUBE PRN PRN Hypoglycemia Simple Syrup 30 ml 10/16/21 01:07 Simple Syrup 15 Ml FEEDTUBE PRN PRN Hypoglycemia Sodium Bicarbonate 325 mg 10/16/21 01:07 Sodium Bicarbonate 325 Mg Tab FEEDTUBE PRN PRN For Clogged Feeding Tube Sodium Chloride 10 ml 10/16/21 01:00 10/19/21 09:58 Sodium Chloride 0.9% 10 Ml Flush Syringe IV 10 ml BID MUNA Administration Sodium Chloride 10 ml 10/16/21 00:57 Sodium Chloride 0.9% 10 Ml Flush Syringe IV PRN PRN LINE FLUSH Sodium Chloride 5 ml 10/16/21 13:57 Sodium Chloride 0.9% 1000 Ml Iv Soln IV PRN PRN CVP Sodium Chloride 50 ml 10/16/21 21:00 10/18/21 21:56 Sodium Chloride 0.9% 50 Ml Ivpb IV 10/20/21 21:01 50 ml Q24HR@2100 MUNA Administration Zinc Sulfate 220 mg 10/16/21 22:00 10/19/21 09:58 Zinc Sulfate 220 Mg Cap PO 220 mg BID MUNA Administration Nutrition/Malnutrition Assess - Dietary Evaluation Nutrition/Malnutrition Findings: Nutrition Notes Start: 10/16/21 10:33 Freq: Status: Active Protocol: Document 10/18/21 16:08 ANTIONE (Rec: 10/18/21 16:15 ANTIONE [id number]) Nutrition Notes Initial or Follow up Brief Note Current Diet TF-Promote @ 41 ml/hr (from L 10/16). Height 5 ft 5 in Weight 55 kg [place] Body Weight (kg) 56.81 BMI 20.1 Weight change and time frame No body weight change reported . Weight Status Appropriate Subjective/Other Information RD consult for routine F/U on TF tolerance. TF continues as prescribed, therefore, well tolerated. Percent of energy/protein needs met: Prescribed Promote @ 41 ml/hr provides for energy/protein needs (985 Kcal/62 g) during LOS, plus 43 Kcal from propofol. 100% Kcal; 93% AA. Current % PO Other Minimum of two criteria No #1 Nutrition Diagnosis Inadequate oral intake Diagnosis Progress(for reassessment Continues documentation) Nutrition Intervention Nutrition Support: Continue Promote @ 41 ml/hr. Flush: 30 ml water Q 4 hr, or as per MD. % RDI: 100% Kcal; 93% AA. Goal #1 Provide at least 75% of energy /protein needs through Enteral Feeding during LOS. Follow-Up By: 10/25/21 Additional Comments Continue monitoring TF tolerance and BM.
[2021-10-19] MEDS: VANCOMYCIN 750 MG in SODIUM CHLORIDE 0.9% 250ML 250 ML IV SCH (18:12)
[2021-10-19] MEDS: HEPARIN/ 0.45% NACL DRIP 25,000 UNIT/500 ML BAG IV SCH (21:47)
[2021-10-19] MEDS: REMDESIVIR 100 MG in SODIUM CHLORIDE 0.9% 250ML 250 ML IV SCH (21:47)
[2021-10-19] MEDS: SENNOSIDES/DOCUSATE SODIUM 8.6/50 MG TAB FEEDTUBE SCH (21:48)
[2021-10-19] MEDS: INSULIN GLARGINE 100 UNITS/ML SUB-Q SCH (21:48)
[2021-10-19] MEDS: SODIUM CHLORIDE 0.9% 50 ML IVPB IV SCH (23:05)
[2021-10-20] MEDS: INSULIN LISPRO 100 UNIT/ML SUB-Q SCH ×4 (00:32→18:12)
[2021-10-20] MEDS: CEFEPIME/NS 2 GM/100 ML 2 GM/100 ML BAG IV SCH ×2 (02:00→13:30)
[2021-10-20 05:09] LABS: Hematocrit 23.6 % (30.3-42.9); Hemoglobin 7.3 gm/dl (10.1-14.3); Mean Corpuscular HGB Conc 31 % (30-34); Mean Corpuscular Volume 78 fl (79-97); Platelet Count 356 K/mm3 (140-440); Red Blood Count 3.04 M/mm3 (3.65-5.03)
[2021-10-20 05:48] LABS: Albumin 2.4 g/dL (3.9-5); Calcium 8.5 mg/dL (8.4-10.2)
[2021-10-20] MEDS: levETIRAcetam 500 MG/5 ML ORAL LIQD PO SCH ×2 (10:41→21:22)
[2021-10-20] MEDS: FAMOTIDINE 20 MG TAB FEEDTUBE SCH ×2 (10:42→21:22)
[2021-10-20] MEDS: ASCORBIC ACID 500 MG TAB PO SCH (10:42)
[2021-10-20] MEDS: ZINC SULFATE 220 MG CAP PO SCH ×2 (10:42→21:23)
[2021-10-20] MEDS: DEXAMETHASONE 4 MG TAB FEEDTUBE SCH (10:42)
[2021-10-20] MEDS: CHOLECALCIFEROL (VIT D3) 5,000 UNIT TAB PO SCH (10:43)
[2021-10-20] MEDS ORDERED: SODIUM FERRIC GLUCON/SUCRO 125 MG in SODIUM CHLORIDE 0.9% 100 ML IV ONE (10:49)
[2021-10-20] MEDS ORDERED: fentaNYL 100 MCG/2 ML INJ IV PRN (11:42)
[2021-10-20] MEDS ORDERED: fentaNYL 100 MCG/2 ML INJ IV ONE (11:42)
[2021-10-20] MEDS: fentaNYL DRIP Premix 2,000 MCG/100 ML BAG IV SCH (12:02)
[2021-10-20 12:10] LABS: Band Neutrophils # (Manual) 0.8 K/mm3; Basophils % (Manual) 0 % (0.0-1.8); Eosinophils % (Manual) 0 % (0.0-4.3); Hypochromasia 1+; Platelet Clumps Rare; Platelet Estimate Consistent w Auto; Target Cells Few; Tear Drop Cells Few; Total Cells Counted 100
--- NOTE | 2021-10-20 13:54 | Progress Note ---
Assessment and Plan Acute hypoxemic respiratory failure on MVS Aspiration pneumonia Septic shock COVID-19 infection DVT CHF H/O CVA Adult FTT Leukocytosis Anemia that is microcytic Lactic acidosis Hypomagnesemia NSTEMI Oropharyngeal dysphagia Dementia - discontinued Magallanes catheter - continue daily SAT and SBT assessment as tolerated - continue IV Heparin P.E. protocol - reduced peep to 8 - continue Ancef; de-escalate per ID recommendations - continue care as below otherwise; - wean Levophed for target MAP > 65 mmHg - continue to wean supplemental oxygen for target O2 sat's > 90% acutely - VAP bundle addressed - continue lung protective strategies - continue bronchodilators with pulmonary hygiene per RT - wean per pulmonary driven protocols otherwise - sedation prn for target RASS 0 to -1 - continue to avoid nephrotoxins, renally dose all medications - continue mobility protocols to prevent pressure ulcers - PT/OT as tolerated - Wound care per RN/WCT - continue accuchecks with glycemic control per SSI (While critically ill target blood glucose of 140-180 mg/dL; avoid hypoglycemia) - home oxygen evaluation at discharge - GI & VTE prophylaxis - Flu & pneumovax per protocol - continue other care per attending / other consultants - prn analgesia per pain score COVID SPECIFIC INTERVENTIONS - Remdesivir as per ID/Pulmonary developed protocols (Receiving) - Not as candidate for Actemra - continue systemic steroids for severe COVID-19 infection empirically (Dexa methasone) - follow repeat COVID tests results - zinc and vitamin C supplementation - Monitor inflammatory markers per facility protocol - ferritin, Ddimer, CRP - therapeutic anticoagulation per system Protocol based on d-dimer and clinical considerations (on IV Heparin re: DVT) - Contact and airborne isolation .... Re-evaluate in am & prn CONDITION: CRITICAL PROGNOSIS: GUARDED CODE STATUS: FULL CODE The high probability of a clinically significant, sudden or life-threatening deterioration of the [respiratory, cardiovascular, hematologic & neurologic] system(s) required my full and direct attention, intervention and personal management. The aggregate critical care time was [32] minutes without overlap. Time includes spent on; [x] Data Review and interpretation [x] Patient assessment and monitoring of vital signs [x] Documentation [x] Medication orders and management Subjective Date of service: 10/20/21 Principal diagnosis: AHRF; Pneumonia; Septic shock; COVID-19 infection; CHF; DVT ; NSTEMI Interval history: Patient is seen today for: AHRF; Aspiration pneumonia; Septic shock; COVID-19 infection; CHF; DVT; NSTEMI Seen and examined at bedside; 24hour events reviewed; nursing and respiratory care staff consulted; no adverse overnight events reported to me; resting peacefully in bed; seen by hematology; remains on Heparin and no gross bleeding; no emesis or overt aspiration; weaning tenuously though Objective Vital Signs - 12hr 10/20/21 10/20/21 10/20/21 02:00 02:15 02:30 Temperature Pulse Rate 80 80 80 Pulse Rate [ From Monitor] Respiratory Rate Blood Pressure 101/56 91/55 98/58 O2 Sat by Pulse 100 100 Oximetry 10/20/21 10/20/21 10/20/21 02:46 03:00 03:15 Temperature Pulse Rate 79 79 80 Pulse Rate [ From Monitor] Respiratory 19 21 19 Rate Blood Pressure 128/69 122/63 117/64 O2 Sat by Pulse 100 98 98 Oximetry 10/20/21 10/20/21 10/20/21 03:30 03:45 04:00 Temperature Pulse Rate 80 80 80 Pulse Rate [ 80 From Monitor] Respiratory 20 19 16 Rate Blood Pressure 107/60 111/63 105/60 O2 Sat by Pulse 98 99 Oximetry 10/20/21 10/20/21 10/20/21 04:06 04:15 04:30 Temperature 97.9 F Pulse Rate 80 80 Pulse Rate [ From Monitor] Respiratory 16 19 Rate Blood Pressure 107/62 114/61 O2 Sat by Pulse 99 Oximetry 10/20/21 10/20/21 10/20/21 04:45 05:00 05:15 Temperature Pulse Rate 80 80 80 Pulse Rate [ From Monitor] Respiratory 19 15 15 Rate Blood Pressure 111/58 111/58 131/65 O2 Sat by Pulse 100 96 94 Oximetry 10/20/21 10/20/21 10/20/21 05:30 05:45 06:00 Temperature Pulse Rate 80 80 80 Pulse Rate [ From Monitor] Respiratory 18 18 19 Rate Blood Pressure 122/68 108/62 109/65 O2 Sat by Pulse 93 95 96 Oximetry 10/20/21 10/20/21 10/20/21 06:15 06:30 06:45 Temperature Pulse Rate 80 80 80 Pulse Rate [ From Monitor] Respiratory 12 16 20 Rate Blood Pressure 114/60 110/61 109/61 O2 Sat by Pulse 97 98 99 Oximetry 10/20/21 10/20/21 10/20/21 07:00 07:15 07:30 Temperature Pulse Rate 80 80 80 Pulse Rate [ From Monitor] Respiratory 21 17 27 H Rate Blood Pressure 108/59 102/59 106/60 O2 Sat by Pulse 99 99 99 Oximetry 10/20/21 10/20/21 10/20/21 07:45 08:00 08:15 Temperature 98.4 F Pulse Rate 80 80 80 Pulse Rate [ 80 From Monitor] Respiratory 22 18 18 Rate Blood Pressure 101/57 102/58 106/59 O2 Sat by Pulse 100 100 Oximetry 10/20/21 10/20/21 10/20/21 08:30 08:38 08:45 Temperature Pulse Rate 80 80 80 Pulse Rate [ From Monitor] Respiratory 20 15 Rate Blood Pressure 102/59 102/59 121/65 O2 Sat by Pulse 99 96 99 Oximetry 10/20/21 10/20/21 10/20/21 09:00 09:15 09:30 Temperature Pulse Rate 80 80 80 Pulse Rate [ From Monitor] Respiratory 15 13 16 Rate Blood Pressure 110/61 112/59 107/60 O2 Sat by Pulse 99 99 Oximetry 10/20/21 10/20/21 10/20/21 09:45 10:00 10:15 Temperature Pulse Rate 80 80 80 Pulse Rate [ From Monitor] Respiratory 18 14 27 H Rate Blood Pressure 106/60 104/61 105/56 O2 Sat by Pulse 100 100 Oximetry 10/20/21 10/20/21 10/20/21 10:30 10:45 11:00 Temperature Pulse Rate 80 80 80 Pulse Rate [ From Monitor] Respiratory 18 14 18 Rate Blood Pressure 104/59 109/60 109/64 O2 Sat by Pulse 100 100 Oximetry 10/20/21 10/20/21 10/20/21 11:15 11:30 11:45 Temperature Pulse Rate 80 77 80 Pulse Rate [ From Monitor] Respiratory 16 13 30 H Rate Blood Pressure 117/71 117/71 198/85 O2 Sat by Pulse 100 97 98 Oximetry 10/20/21 10/20/21 10/20/21 11:46 12:00 12:15 Temperature 98 F Pulse Rate 80 80 80 Pulse Rate [ 80 From Monitor] Respiratory 33 H 35 H 25 H Rate Blood Pressure 198/85 152/75 119/61 O2 Sat by Pulse 99 95 94 Oximetry 10/20/21 10/20/21 10/20/21 12:30 12:45 13:00 Temperature Pulse Rate 80 80 80 Pulse Rate [ From Monitor] Respiratory 25 H 24 25 H Rate Blood Pressure 109/63 112/59 106/56 O2 Sat by Pulse 94 95 Oximetry 10/20/21 10/20/21 13:15 13:30 Temperature Pulse Rate 80 80 Pulse Rate [ From Monitor] Respiratory 23 19 Rate Blood Pressure 96/51 103/60 O2 Sat by Pulse 95 Oximetry Constitutional: appears uncomfortable, other (elderly and chronically ill looking female with mildly increased respiratory effort at rest) Eyes: non-icteric ENT: oropharynx dry, other (ETT 23 cm JESSICA) Neck: supple, no lymphadenopathy, no JVD Effort: mildly labored Ascultation: Bilateral: diminished breath sounds, rhonchi Percussion: Bilateral: not dull Cardiovascular: regular rate and rhythm Gastrointestinal: normoactive bowel sounds, soft, non-tender, non-distended, other (PEG tube) Integumentary: rash (xeroderma type) Neurologic: pupils equal and round, unable to assess Psychiatric: other (unable to assess re: AMS) CBC and BMP: 10/21/21 04:53 10/21/21 04:53 ABG, PT/INR, D-dimer: ABG ABG pH 7.282 (7.320-7.450) L 10/18/21 09:00 POC ABG pCO2 48.1 mmHg (32.0-48.0) H 10/18/21 09:00 ABG pCO2 57.0 mm Hg 10/15/21 16:42 POC ABG pO2 103.0 mmHg (83-108) 10/18/21 09:00 ABG pO2 75.4 mm Hg (80.0-90.0) L 10/15/21 16:42 POC ABG HCO3 22.2 10/18/21 09:00 ABG O2 Saturation 97.0 (0-100) 10/18/21 09:00 PT/INR, D-dimer PT 14.6 Sec. (12.2-14.9) 10/15/21 16:15 INR 1.03 (0.87-1.13) 10/15/21 16:15 D-Dimer 1817.20 ng/mlDDU (0-234) H 10/20/21 04:25 Abnormal lab findings: Abnormal Labs 10/15/21 10/15/21 10/15/21 16:15 16:15 16:15 WBC 17.2 H RBC Hgb 9.0 L Hct 29.7 L MCV 78 L MCH 24 L RDW 17.5 H Seg Neuts % (Manual) 88.0 H Lymphocytes % (Manual) 3.0 L Nucleated RBC % Seg Neutrophils # Man 15.1 H Lymphocytes # (Manual) 0.5 L APTT 38.0 H Fibrinogen D-Dimer 7433.97 H Heparin Anti-Xa Level ABG pH POC ABG pCO2 ABG pO2 ABG HCO3 ABG O2 Saturation ABG Base Excess ABG Hemoglobin ABG Sodium ABG Chloride ABG Glucose Oxyhemoglobin Sodium Potassium Chloride Carbon Dioxide BUN Glucose POC Glucose Lactic Acid 5.60 H* Calcium Phosphorus Magnesium Iron TIBC Ferritin Direct Bilirubin Lactate Dehydrogenase Troponin T C-Reactive Protein NT-Pro-B Natriuret Pep Total Protein Albumin LDL Cholesterol Direct HDL Cholesterol Arterial Blood Glucose Salicylates Acetaminophen Coronavirus (PCR) 10/15/21 10/15/21 10/15/21 16:15 16:15 16:15 WBC RBC Hgb Hct MCV MCH RDW Seg Neuts % (Manual) Lymphocytes % (Manual) Nucleated RBC % Seg Neutrophils # Man Lymphocytes # (Manual) APTT Fibrinogen D-Dimer Heparin Anti-Xa Level ABG pH POC ABG pCO2 ABG pO2 ABG HCO3 ABG O2 Saturation ABG Base Excess ABG Hemoglobin ABG Sodium ABG Chloride ABG Glucose Oxyhemoglobin Sodium 134 L Potassium Chloride 89.6 L Carbon Dioxide BUN 27 H Glucose 234 H POC Glucose Lactic Acid Calcium Phosphorus Magnesium 1.40 L Iron TIBC Ferritin Direct Bilirubin 0.3 H Lactate Dehydrogenase Troponin T C-Reactive Protein NT-Pro-B Natriuret Pep 6606 H Total Protein 6.2 L Albumin 3.1 L LDL Cholesterol Direct HDL Cholesterol Arterial Blood Glucose Salicylates < 0.3 L Acetaminophen 5.0 L Coronavirus (PCR) 10/15/21 10/15/21 10/15/21 16:15 16:15 16:15 WBC RBC Hgb Hct MCV MCH RDW Seg Neuts % (Manual) Lymphocytes % (Manual) Nucleated RBC % Seg Neutrophils # Man Lymphocytes # (Manual) APTT Fibrinogen D-Dimer Heparin Anti-Xa Level ABG pH POC ABG pCO2 ABG pO2 ABG HCO3 ABG O2 Saturation ABG Base Excess ABG Hemoglobin ABG Sodium ABG Chloride ABG Glucose Oxyhemoglobin Sodium Potassium Chloride Carbon Dioxide BUN Glucose 221 H POC Glucose Lactic Acid Calcium Phosphorus Magnesium Iron TIBC Ferritin 418.8 H 421.6 H Direct Bilirubin Lactate Dehydrogenase 233 H Troponin T C-Reactive Protein 25.90 H NT-Pro-B Natriuret Pep Total Protein Albumin LDL Cholesterol Direct HDL Cholesterol Arterial Blood Glucose Salicylates Acetaminophen Coronavirus (PCR) 10/15/21 10/15/21 10/15/21 16:42 18:00 18:00 WBC RBC Hgb Hct MCV MCH RDW Seg Neuts % (Manual) Lymphocytes % (Manual) Nucleated RBC % Seg Neutrophils # Man Lymphocytes # (Manual) APTT Fibrinogen D-Dimer Heparin Anti-Xa Level ABG pH 7.348 L POC ABG pCO2 ABG pO2 75.4 L ABG HCO3 30.6 H ABG O2 Saturation 94.3 L ABG Base Excess 3.9 H ABG Hemoglobin 10.9 L ABG Sodium ABG Chloride ABG Glucose Oxyhemoglobin 93.1 L Sodium Potassium Chloride Carbon Dioxide BUN Glucose POC Glucose Lactic Acid 3.10 H* Calcium Phosphorus Magnesium Iron TIBC Ferritin Direct Bilirubin Lactate Dehydrogenase Troponin T 0.036 H C-Reactive Protein NT-Pro-B Natriuret Pep Total Protein Albumin LDL Cholesterol Direct 46 L HDL Cholesterol 25 L Arterial Blood Glucose Salicylates Acetaminophen Coronavirus (PCR) 10/15/21 10/16/21 10/16/21 20:58 01:55 04:50 WBC RBC Hgb Hct MCV MCH RDW Seg Neuts % (Manual) Lymphocytes % (Manual) Nucleated RBC % Seg Neutrophils # Man Lymphocytes # (Manual) APTT Fibrinogen D-Dimer Heparin Anti-Xa Level ABG pH 7.490 H POC ABG pCO2 ABG pO2 ABG HCO3 ABG O2 Saturation ABG Base Excess ABG Hemoglobin 9.7 L ABG Sodium 128.9 L ABG Chloride 96.0 L ABG Glucose 235 H Oxyhemoglobin Sodium 135 L Potassium Chloride 94.9 L Carbon Dioxide BUN 28 H Glucose 226 H POC Glucose Lactic Acid Calcium Phosphorus Magnesium Iron TIBC Ferritin Direct Bilirubin Lactate Dehydrogenase Troponin T 0.038 H C-Reactive Protein NT-Pro-B Natriuret Pep Total Protein Albumin LDL Cholesterol Direct HDL Cholesterol Arterial Blood Glucose 235 H Salicylates Acetaminophen Coronavirus (PCR) 10/16/21 10/16/21 10/16/21 09:05 09:05 09:05 WBC 14.9 H RBC 3.20 L Hgb 7.6 L Hct 24.8 L MCV 77 L MCH 24 L RDW 17.5 H Seg Neuts % (Manual) Lymphocytes % (Manual) Nucleated RBC % Seg Neutrophils # Man Lymphocytes # (Manual) APTT Fibrinogen D-Dimer Heparin Anti-Xa Level ABG pH POC ABG pCO2 ABG pO2 ABG HCO3 ABG O2 Saturation ABG Base Excess ABG Hemoglobin ABG Sodium ABG Chloride ABG Glucose Oxyhemoglobin Sodium 132 L Potassium Chloride 93.2 L Carbon Dioxide BUN 28 H Glucose 225 H POC Glucose Lactic Acid 2.30 H* Calcium 8.3 L Phosphorus Magnesium 1.30 L Iron TIBC Ferritin Direct Bilirubin Lactate Dehydrogenase Troponin T C-Reactive Protein NT-Pro-B Natriuret Pep Total Protein 5.7 L Albumin 2.4 L LDL Cholesterol Direct HDL Cholesterol Arterial Blood Glucose Salicylates Acetaminophen Coronavirus (PCR) 10/16/21 10/16/21 10/16/21 09:05 09:36 12:24 WBC RBC Hgb Hct MCV MCH RDW Seg Neuts % (Manual) Lymphocytes % (Manual) Nucleated RBC % Seg Neutrophils # Man Lymphocytes # (Manual) APTT Fibrinogen D-Dimer Heparin Anti-Xa Level ABG pH POC ABG pCO2 ABG pO2 ABG HCO3 ABG O2 Saturation ABG Base Excess ABG Hemoglobin ABG Sodium ABG Chloride ABG Glucose Oxyhemoglobin Sodium Potassium Chloride Carbon Dioxide BUN Glucose POC Glucose 187 H Lactic Acid Calcium Phosphorus 2.10 L Magnesium Iron TIBC Ferritin Direct Bilirubin Lactate Dehydrogenase Troponin T C-Reactive Protein NT-Pro-B Natriuret Pep Total Protein Albumin LDL Cholesterol Direct HDL Cholesterol Arterial Blood Glucose Salicylates Acetaminophen Coronavirus (PCR) Positive A 10/16/21 10/16/21 10/16/21 17:19 21:00 23:31 WBC RBC Hgb Hct MCV MCH RDW Seg Neuts % (Manual) Lymphocytes % (Manual) Nucleated RBC % Seg Neutrophils # Man Lymphocytes # (Manual) APTT Fibrinogen D-Dimer Heparin Anti-Xa Level ABG pH POC ABG pCO2 ABG pO2 ABG HCO3 ABG O2 Saturation ABG Base Excess ABG Hemoglobin ABG Sodium ABG Chloride ABG Glucose Oxyhemoglobin Sodium Potassium Chloride Carbon Dioxide BUN Glucose POC Glucose 128 H 132 H Lactic Acid Calcium Phosphorus Magnesium Iron TIBC Ferritin Direct Bilirubin Lactate Dehydrogenase 216 H Troponin T C-Reactive Protein 26.90 H NT-Pro-B Natriuret Pep Total Protein Albumin LDL Cholesterol Direct HDL Cholesterol Arterial Blood Glucose Salicylates Acetaminophen Coronavirus (PCR) 10/16/21 10/17/21 10/17/21 23:31 06:02 06:02 WBC 16.7 H RBC 3.16 L Hgb 7.6 L Hct 24.2 L MCV 77 L MCH 24 L RDW 17.7 H Seg Neuts % (Manual) 95.0 H Lymphocytes % (Manual) 1.0 L Nucleated RBC % Seg Neutrophils # Man 15.9 H Lymphocytes # (Manual) 0.2 L APTT Fibrinogen D-Dimer Heparin Anti-Xa Level ABG pH POC ABG pCO2 ABG pO2 ABG HCO3 ABG O2 Saturation ABG Base Excess ABG Hemoglobin ABG Sodium ABG Chloride ABG Glucose Oxyhemoglobin Sodium Potassium Chloride Carbon Dioxide BUN 32 H Glucose 163 H POC Glucose Lactic Acid Calcium 7.8 L Phosphorus Magnesium Iron TIBC Ferritin 428.7 H Direct Bilirubin Lactate Dehydrogenase Troponin T C-Reactive Protein NT-Pro-B Natriuret Pep Total Protein 5.7 L Albumin 2.3 L LDL Cholesterol Direct HDL Cholesterol Arterial Blood Glucose Salicylates Acetaminophen Coronavirus (PCR) 10/17/21 10/17/21 10/17/21 06:02 06:02 06:21 WBC RBC Hgb Hct MCV MCH RDW Seg Neuts % (Manual) Lymphocytes % (Manual) Nucleated RBC % Seg Neutrophils # Man Lymphocytes # (Manual) APTT Fibrinogen D-Dimer Heparin Anti-Xa Level ABG pH POC ABG pCO2 ABG pO2 ABG HCO3 ABG O2 Saturation ABG Base Excess ABG Hemoglobin ABG Sodium ABG Chloride ABG Glucose Oxyhemoglobin Sodium Potassium 3.5 L Chloride Carbon Dioxide BUN 32 H Glucose 216 H POC Glucose 219 H Lactic Acid Calcium Phosphorus Magnesium 1.40 L Iron TIBC Ferritin Direct Bilirubin 0.3 H Lactate Dehydrogenase 257 H Troponin T C-Reactive Protein 28.50 H NT-Pro-B Natriuret Pep Total Protein 5.8 L Albumin 2.3 L LDL Cholesterol Direct HDL Cholesterol Arterial Blood Glucose Salicylates Acetaminophen Coronavirus (PCR) 10/17/21 10/17/21 10/17/21 08:35 12:38 17:35 WBC RBC Hgb Hct MCV MCH RDW Seg Neuts % (Manual) Lymphocytes % (Manual) Nucleated RBC % Seg Neutrophils # Man Lymphocytes # (Manual) APTT Fibrinogen D-Dimer Heparin Anti-Xa Level ABG pH POC ABG pCO2 ABG pO2 ABG HCO3 ABG O2 Saturation ABG Base Excess ABG Hemoglobin ABG Sodium ABG Chloride ABG Glucose Oxyhemoglobin Sodium Potassium Chloride Carbon Dioxide BUN Glucose POC Glucose 216 H 262 H 230 H Lactic Acid Calcium Phosphorus Magnesium Iron TIBC Ferritin Direct Bilirubin Lactate Dehydrogenase Troponin T C-Reactive Protein NT-Pro-B Natriuret Pep Total Protein Albumin LDL Cholesterol Direct HDL Cholesterol Arterial Blood Glucose Salicylates Acetaminophen Coronavirus (PCR) 10/17/21 10/17/21 10/18/21 18:20 22:17 00:16 WBC RBC Hgb Hct MCV MCH RDW Seg Neuts % (Manual) Lymphocytes % (Manual) Nucleated RBC % Seg Neutrophils # Man Lymphocytes # (Manual) APTT Fibrinogen D-Dimer Heparin Anti-Xa Level 0.24 L ABG pH POC ABG pCO2 ABG pO2 ABG HCO3 ABG O2 Saturation ABG Base Excess ABG Hemoglobin ABG Sodium ABG Chloride ABG Glucose Oxyhemoglobin Sodium Potassium Chloride Carbon Dioxide BUN Glucose POC Glucose 215 H 247 H Lactic Acid Calcium Phosphorus Magnesium Iron TIBC Ferritin Direct Bilirubin Lactate Dehydrogenase Troponin T C-Reactive Protein NT-Pro-B Natriuret Pep Total Protein Albumin LDL Cholesterol Direct HDL Cholesterol Arterial Blood Glucose Salicylates Acetaminophen Coronavirus (PCR) 10/18/21 10/18/21 10/18/21 04:40 04:40 05:00 WBC RBC Hgb Hct MCV MCH RDW Seg Neuts % (Manual) Lymphocytes % (Manual) Nucleated RBC % Seg Neutrophils # Man Lymphocytes # (Manual) APTT Fibrinogen D-Dimer 2424.98 H Heparin Anti-Xa Level ABG pH POC ABG pCO2 ABG pO2 ABG HCO3 ABG O2 Saturation ABG Base Excess ABG Hemoglobin ABG Sodium ABG Chloride ABG Glucose Oxyhemoglobin Sodium Potassium Chloride Carbon Dioxide BUN 44 H Glucose 286 H POC Glucose Lactic Acid Calcium 7.8 L Phosphorus Magnesium 2.60 H Iron TIBC Ferritin Direct Bilirubin Lactate Dehydrogenase Troponin T C-Reactive Protein NT-Pro-B Natriuret Pep Total Protein 5.7 L Albumin 2.2 L LDL Cholesterol Direct HDL Cholesterol Arterial Blood Glucose Salicylates Acetaminophen Coronavirus (PCR) 10/18/21 10/18/21 10/18/21 05:16 05:39 07:29 WBC 16.4 H RBC 3.03 L Hgb 7.3 L Hct 23.5 L MCV 78 L MCH 24 L RDW 17.9 H Seg Neuts % (Manual) Lymphocytes % (Manual) Nucleated RBC % Seg Neutrophils # Man Lymphocytes # (Manual) APTT Fibrinogen D-Dimer Heparin Anti-Xa Level ABG pH POC ABG pCO2 ABG pO2 ABG HCO3 ABG O2 Saturation ABG Base Excess ABG Hemoglobin ABG Sodium ABG Chloride ABG Glucose Oxyhemoglobin Sodium Potassium Chloride Carbon Dioxide BUN Glucose POC Glucose 281 H 274 H Lactic Acid Calcium Phosphorus Magnesium Iron TIBC Ferritin Direct Bilirubin Lactate Dehydrogenase Troponin T C-Reactive Protein NT-Pro-B Natriuret Pep Total Protein Albumin LDL Cholesterol Direct HDL Cholesterol Arterial Blood Glucose Salicylates Acetaminophen Coronavirus (PCR) 10/18/21 10/18/21 10/18/21 09:00 11:27 11:30 WBC RBC Hgb Hct MCV MCH RDW Seg Neuts % (Manual) Lymphocytes % (Manual) Nucleated RBC % Seg Neutrophils # Man Lymphocytes # (Manual) APTT Fibrinogen D-Dimer Heparin Anti-Xa Level 0.24 L ABG pH 7.282 L POC ABG pCO2 48.1 H ABG pO2 ABG HCO3 ABG O2 Saturation ABG Base Excess ABG Hemoglobin 7.6 L ABG Sodium ABG Chloride ABG Glucose 252 H Oxyhemoglobin Sodium Potassium Chloride Carbon Dioxide BUN Glucose POC Glucose 219 H Lactic Acid Calcium Phosphorus Magnesium Iron TIBC Ferritin Direct Bilirubin Lactate Dehydrogenase Troponin T C-Reactive Protein NT-Pro-B Natriuret Pep Total Protein Albumin LDL Cholesterol Direct HDL Cholesterol Arterial Blood Glucose 252 H Salicylates Acetaminophen Coronavirus (PCR) 10/18/21 10/18/21 10/18/21 15:58 19:56 23:21 WBC RBC Hgb Hct MCV MCH RDW Seg Neuts % (Manual) Lymphocytes % (Manual) Nucleated RBC % Seg Neutrophils # Man Lymphocytes # (Manual) APTT Fibrinogen D-Dimer Heparin Anti-Xa Level 0.22 L ABG pH POC ABG pCO2 ABG pO2 ABG HCO3 ABG O2 Saturation ABG Base Excess ABG Hemoglobin ABG Sodium ABG Chloride ABG Glucose Oxyhemoglobin Sodium Potassium Chloride Carbon Dioxide BUN Glucose POC Glucose 264 H 198 H Lactic Acid Calcium Phosphorus Magnesium Iron TIBC Ferritin Direct Bilirubin Lactate Dehydrogenase Troponin T C-Reactive Protein NT-Pro-B Natriuret Pep Total Protein Albumin LDL Cholesterol Direct HDL Cholesterol Arterial Blood Glucose Salicylates Acetaminophen Coronavirus (PCR) 10/19/21 10/19/21 10/19/21 02:40 02:40 02:40 WBC RBC Hgb Hct MCV MCH RDW Seg Neuts % (Manual) Lymphocytes % (Manual) Nucleated RBC % Seg Neutrophils # Man Lymphocytes # (Manual) APTT Fibrinogen D-Dimer Heparin Anti-Xa Level ABG pH POC ABG pCO2 ABG pO2 ABG HCO3 ABG O2 Saturation ABG Base Excess ABG Hemoglobin ABG Sodium ABG Chloride ABG Glucose Oxyhemoglobin Sodium Potassium Chloride Carbon Dioxide BUN 49 H Glucose 167 H POC Glucose Lactic Acid Calcium Phosphorus Magnesium Iron TIBC Ferritin 383.0 H Direct Bilirubin Lactate Dehydrogenase 223 H Troponin T C-Reactive Protein 9.30 H NT-Pro-B Natriuret Pep Total Protein 6.2 L Albumin 2.5 L LDL Cholesterol Direct HDL Cholesterol Arterial Blood Glucose Salicylates Acetaminophen Coronavirus (PCR) 10/19/21 10/19/21 10/19/21 02:40 02:40 05:06 WBC 15.5 H RBC 3.13 L Hgb 7.5 L Hct 24.3 L MCV 77 L MCH 24 L RDW 17.8 H Seg Neuts % (Manual) Lymphocytes % (Manual) Nucleated RBC % Seg Neutrophils # Man Lymphocytes # (Manual) APTT Fibrinogen D-Dimer Heparin Anti-Xa Level 0.17 L ABG pH POC ABG pCO2 ABG pO2 ABG HCO3 ABG O2 Saturation ABG Base Excess ABG Hemoglobin ABG Sodium ABG Chloride ABG Glucose Oxyhemoglobin Sodium Potassium Chloride Carbon Dioxide BUN Glucose POC Glucose 152 H Lactic Acid Calcium Phosphorus Magnesium Iron TIBC Ferritin Direct Bilirubin Lactate Dehydrogenase Troponin T C-Reactive Protein NT-Pro-B Natriuret Pep Total Protein Albumin LDL Cholesterol Direct HDL Cholesterol Arterial Blood Glucose Salicylates Acetaminophen Coronavirus (PCR) 10/19/21 10/19/21 10/19/21 11:40 16:06 23:55 WBC RBC Hgb Hct MCV MCH RDW Seg Neuts % (Manual) Lymphocytes % (Manual) Nucleated RBC % Seg Neutrophils # Man Lymphocytes # (Manual) APTT Fibrinogen D-Dimer Heparin Anti-Xa Level ABG pH POC ABG pCO2 ABG pO2 ABG HCO3 ABG O2 Saturation ABG Base Excess ABG Hemoglobin ABG Sodium ABG Chloride ABG Glucose Oxyhemoglobin Sodium Potassium Chloride Carbon Dioxide BUN Glucose POC Glucose 146 H 244 H 229 H Lactic Acid Calcium Phosphorus Magnesium Iron TIBC Ferritin Direct Bilirubin Lactate Dehydrogenase Troponin T C-Reactive Protein NT-Pro-B Natriuret Pep Total Protein Albumin LDL Cholesterol Direct HDL Cholesterol Arterial Blood Glucose Salicylates Acetaminophen Coronavirus (PCR) 10/20/21 10/20/21 10/20/21 04:25 05:00 05:00 WBC 16.2 H RBC 3.04 L Hgb 7.3 L Hct 23.6 L MCV 78 L MCH 24 L RDW 18.0 H Seg Neuts % (Manual) 85.0 H Lymphocytes % (Manual) 6.0 L Nucleated RBC % 1.0 H Seg Neutrophils # Man 13.8 H Lymphocytes # (Manual) 1.0 L APTT Fibrinogen 803 H D-Dimer 1817.20 H Heparin Anti-Xa Level ABG pH POC ABG pCO2 ABG pO2 ABG HCO3 ABG O2 Saturation ABG Base Excess ABG Hemoglobin ABG Sodium ABG Chloride ABG Glucose Oxyhemoglobin Sodium Potassium Chloride 108.5 H Carbon Dioxide 21 L BUN 49 H Glucose 186 H POC Glucose Lactic Acid Calcium Phosphorus Magnesium Iron 14 L TIBC 138 L Ferritin Direct Bilirubin Lactate Dehydrogenase Troponin T C-Reactive Protein NT-Pro-B Natriuret Pep Total Protein 5.7 L Albumin 2.4 L LDL Cholesterol Direct HDL Cholesterol Arterial Blood Glucose Salicylates Acetaminophen Coronavirus (PCR) 10/20/21 10/20/21 10/20/21 05:11 10:45 12:14 WBC RBC Hgb Hct MCV MCH RDW Seg Neuts % (Manual) Lymphocytes % (Manual) Nucleated RBC % Seg Neutrophils # Man Lymphocytes # (Manual) APTT Fibrinogen D-Dimer Heparin Anti-Xa Level 0.14 L ABG pH POC ABG pCO2 ABG pO2 ABG HCO3 ABG O2 Saturation ABG Base Excess ABG Hemoglobin ABG Sodium ABG Chloride ABG Glucose Oxyhemoglobin Sodium Potassium Chloride Carbon Dioxide BUN Glucose POC Glucose 181 H 192 H Lactic Acid Calcium Phosphorus Magnesium Iron TIBC Ferritin Direct Bilirubin Lactate Dehydrogenase Troponin T C-Reactive Protein NT-Pro-B Natriuret Pep Total Protein Albumin LDL Cholesterol Direct HDL Cholesterol Arterial Blood Glucose Salicylates Acetaminophen Coronavirus (PCR) Chest x-ray: other (none today) Allied health notes reviewed: nursing
--- NOTE | 2021-10-20 13:58 | Progress Note ---
Assessment and Plan - Patient Problems (1) Respiratory failure Current Visit: Yes Status: Acute Plan to address problem: Patient presented with respiratory failure, currently sedated, on the vent. There is no clinical or x-ray evidence of fluid overload or heart failure, there is some mild to moderate cardiomegaly on the chest x-ray, and echocardiogram is pending for left ventricular function assessment. The patient's chest x-ray does show a consolidation in the left lower lobe, consistent with acute pneumonia. COVID-19 test is positive. (2) Cardiac pacemaker Current Visit: Yes Status: Acute Plan to address problem: Patient has a dual-chamber pacemaker in situ, we will request old records including outpatient records to obtain details of her pacemaker and other previ ous cardiac work-up and interventions. Subjective Date of service: 10/20/21 Principal diagnosis: AHRF; Pneumonia; Septic shock; COVID-19 infection; CHF; DVT; NSTEMI Interval history: Patient is unresponsive, on the vent. cable swager shows a ventricular paced rhythm unchanged at 80. Objective Vital Signs Temp Pulse Pulse Resp BP Pulse Ox 10/20/21 13:30 80 19 103/60 10/20/21 13:15 80 23 96/51 95 10/20/21 13:00 80 25 H 106/56 10/20/21 12:45 80 24 112/59 95 10/20/21 12:30 80 25 H 109/63 94 10/20/21 12:15 80 25 H 119/61 94 10/20/21 12:00 98 F 80 80 35 H 152/75 95 10/20/21 11:46 80 33 H 198/85 99 10/20/21 11:45 80 30 H 198/85 98 10/20/21 11:30 77 13 117/71 97 10/20/21 11:15 80 16 117/71 100 10/20/21 11:00 80 18 109/64 100 10/20/21 10:45 80 14 109/60 10/20/21 10:30 80 18 104/59 100 10/20/21 10:15 80 27 H 105/56 100 10/20/21 10:00 80 14 104/61 10/20/21 09:45 80 18 106/60 100 10/20/21 09:30 80 16 107/60 10/20/21 09:15 80 13 112/59 99 10/20/21 09:00 80 15 110/61 99 10/20/21 08:45 80 15 121/65 99 10/20/21 08:38 80 102/59 96 10/20/21 08:30 80 20 102/59 99 10/20/21 08:15 80 18 106/59 100 10/20/21 08:00 98.4 F 80 80 18 102/58 100 10/20/21 07:45 80 22 101/57 10/20/21 07:30 80 27 H 106/60 99 10/20/21 07:15 80 17 102/59 99 10/20/21 07:00 80 21 108/59 99 10/20/21 06:45 80 20 109/61 99 10/20/21 06:30 80 16 110/61 98 10/20/21 06:15 80 12 114/60 97 10/20/21 06:00 80 19 109/65 96 10/20/21 05:45 80 18 108/62 95 10/20/21 05:30 80 18 122/68 93 10/20/21 05:15 80 15 131/65 94 10/20/21 05:00 80 15 111/58 96 10/20/21 04:45 80 19 111/58 100 10/20/21 04:30 80 19 114/61 99 10/20/21 04:15 80 16 107/62 10/20/21 04:06 97.9 F 10/20/21 04:00 80 80 16 105/60 99 10/20/21 03:45 80 19 111/63 10/20/21 03:30 80 20 107/60 98 10/20/21 03:15 80 19 117/64 98 10/20/21 03:00 79 21 122/63 98 10/20/21 02:46 79 19 128/69 100 10/20/21 02:30 80 22 98/58 100 10/20/21 02:15 80 21 91/55 100 10/20/21 02:00 80 22 101/56 10/20/21 01:45 80 21 96/58 100 10/20/21 01:30 79 19 108/62 10/20/21 01:15 80 19 97/56 10/20/21 01:00 79 20 104/57 100 10/20/21 00:45 80 19 104/60 10/20/21 00:30 80 22 100/64 10/20/21 00:15 80 19 92/57 10/20/21 00:00 98.1 F 79 80 18 128/69 100 10/19/21 23:45 80 18 91/52 100 10/19/21 23:30 80 20 93/54 10/19/21 23:15 80 18 89/52 100 10/19/21 23:00 80 16 95/55 100 10/19/21 22:45 80 20 105/60 99 10/19/21 22:34 80 19 111/61 100 10/19/21 22:30 80 18 111/61 100 10/19/21 22:16 80 13 148/79 99 10/19/21 22:00 80 19 101/60 100 10/19/21 21:45 80 19 104/66 100 10/19/21 21:30 80 19 103/60 10/19/21 21:15 80 19 102/59 100 10/19/21 21:00 80 21 104/61 10/19/21 20:45 80 21 105/61 100 10/19/21 20:30 80 22 118/67 99 10/19/21 20:15 80 28 H 146/81 100 10/19/21 20:00 80 80 20 148/79 98 10/19/21 19:54 98.2 F 10/19/21 19:45 80 18 114/71 100 10/19/21 19:30 80 17 94/55 100 10/19/21 19:15 80 18 96/59 10/19/21 19:00 80 17 102/60 100 10/19/21 18:45 80 17 102/64 10/19/21 18:30 80 17 85/61 10/19/21 18:15 80 19 93/57 100 10/19/21 18:00 79 17 92/54 100 10/19/21 17:45 80 17 90/53 10/19/21 17:30 80 17 93/56 10/19/21 17:15 80 18 94/56 100 10/19/21 17:00 80 19 101/59 10/19/21 16:45 80 18 104/61 99 10/19/21 16:30 80 18 104/61 99 10/19/21 16:15 80 18 119/64 10/19/21 16:05 80 111/62 97 10/19/21 16:00 98.1 F 80 80 28 H 111/62 97 10/19/21 15:45 80 30 H 110/62 95 10/19/21 15:30 80 28 H 119/65 94 10/19/21 15:15 80 32 H 139/71 93 10/19/21 15:00 80 27 H 160/74 91 10/19/21 14:45 80 27 H 157/74 95 10/19/21 14:30 80 29 H 149/65 95 10/19/21 14:16 139/76 97 10/19/21 14:00 80 29 H 114/60 96 - Physical Examination Narrative exam: Full physical exam is deferred due to the patient's acute COVID infection. General: Other (Unresponsive, on the ventilator) HEENT: Positive: Other (Pupils fixed) Neck: Positive: neck supple Neuro: Positive: Other (Unresponsive, on the ventilator) - Labs and Meds Cardiac Enzymes 10/20/21 Range/Units 05:00 AST 17 (5-40) units/L CBC 10/20/21 Range/Units 05:00 WBC 16.2 H (4.5-11.0) K/mm3 RBC 3.04 L (3.65-5.03) M/mm3 Hgb 7.3 L (10.1-14.3) gm/dl Hct 23.6 L (30.3-42.9) % Plt Count 356 (140-440) K/mm3 Comprehensive Metabolic Panel 10/20/21 Range/Units 05:00 Sodium 143 (137-145) mmol/L Potassium 4.3 (3.6-5.0) mmol/L Chloride 108.5 H (98-107) mmol/L Carbon Dioxide 21 L (22-30) mmol/L BUN 49 H (7-17) mg/dL Creatinine 1.1 (0.6-1.2) mg/dL Glucose 186 H (65-100) mg/dL Calcium 8.5 (8.4-10.2) mg/dL AST 17 (5-40) units/L ALT 13 (7-56) units/L Alkaline Phosphatase 59 (35-129) units/L Total Protein 5.7 L (6.3-8.2) g/dL Albumin 2.4 L (3.9-5) g/dL Pacemaker: ventricular pacing w/capt - Allied health notes Allied health notes reviewed: nursing
--- NOTE | 2021-10-20 14:01 | Progress Note ---
Assessment and Plan Cultures: 10/15/2021 blood culture: no growth COVID-19 PCR: Positive 10/15/2021 sputum culture: Staph aureus 10/18/2021 MRSA nasal PCR: Negative A/P: 86-year-old female with hypertension, prior CVA, diabetes, CHF, indwelling cardiac device admitted with resp distress: #Severe sepsis with septic shock, likely secondary to bilateral pneumonia with possible aspiration pneumonia. Initial labs showed leukocytosis with WBC 17.2, D-dimer 7433, lactate of 5.6, proBNP 6606, CRP 25.9, ferritin 418.8. UA with no pyuria. Procalcitonin 39.5 #COVID-19 pneumonia: COVID PCR positive. #Acute hypoxic respiratory failure: on the vent #CHF, indwelling cardiac device: BNP elevated. Cardiology on board. #Prior CVA Recs: -continue steroids and Remdesivir for COVID-19 -Not a candidate for Actemra due to very high white count and procalcitonin with concern for superadded bacterial infection -MRSA nasal PCR came back negative, Cefepime, vancomycin discontinued, IV Ancef 2 g daily ordered for 5 more days -guarded prognosis Yogi Maher MD, FACP, [facility] ([facility]) O: [phone] F: [phone] Subjective Date of service: 10/20/21 Principal diagnosis: AHRF; Pneumonia; Septic shock; COVID-19 infection; CHF; DVT; NSTEMI Interval history: No fever. Remains on the vent. Objective - Exam Narrative Exam: Physical Exam: Constitutional: sedated, intubated, on the vent Head, Ears, Nose: Normocephalic, atraumatic. External ears, nose normal Eyes: Conjunctivae/corneas clear. No icterus. No ptosis. Neck: intubated Oral: intubated Cardiovascular: S1, S2 + Respiratory: AE fair GI: Soft, bowel sounds + Musculoskeletal: No pedal edema, no cyanosis. Skin: No rash or abscess Hem/Lymphatic: No palpable cervical or supraclavicular nodes. No lymphangitis Psych: no agitation Neurological: sedated, intubated, on the vent, exam limited - Constitutional Vitals: Vital Signs Temp Pulse Resp BP Pulse Ox 98 F 80 19 103/60 95 10/20/21 12:00 10/20/21 13:30 10/20/21 13:30 10/20/21 13:30 10/20/21 13:15 Temperature -Last 24 Hours Temperature 98 F Temperature 98.4 F Temperature 97.9 F Temperature 98.1 F Temperature 98.2 F Temperature 98.1 F - Labs CBC & Chem 7: 10/20/21 05:00 10/20/21 05:00 Labs: Abnormal lab results 10/19/21 10/19/21 10/20/21 Range/Units 16:06 23:55 04:25 WBC (4.5-11.0) K/mm3 RBC (3.65-5.03) M/mm3 Hgb (10.1-14.3) gm/dl Hct (30.3-42.9) % MCV (79-97) fl MCH (28-32) pg RDW (13.2-15.2) % Seg Neuts % (Manual) (40.0-70.0) % Lymphocytes % (Manual) (13.4-35.0) % Nucleated RBC % (0.0-0.9) % Seg Neutrophils # Man (1.8-7.7) K/mm3 Lymphocytes # (Manual) (1.2-5.4) K/mm3 Fibrinogen 803 H (211-480) mg/dl D-Dimer 1817.20 H (0-234) ng/mlDDU Heparin Anti-Xa Level (0.3-0.7) U.I./ml Chloride (98-107) mmol/L Carbon Dioxide (22-30) mmol/L BUN (7-17) mg/dL Glucose (65-100) mg/dL POC Glucose 244 H 229 H (70-105) mg/dL Iron (37-170) ug/dL TIBC (250-450) mcg/dL Total Protein (6.3-8.2) g/dL Albumin (3.9-5) g/dL 10/20/21 10/20/21 10/20/21 Range/Units 05:00 05:00 05:11 WBC 16.2 H (4.5-11.0) K/mm3 RBC 3.04 L (3.65-5.03) M/mm3 Hgb 7.3 L (10.1-14.3) gm/dl Hct 23.6 L (30.3-42.9) % MCV 78 L (79-97) fl MCH 24 L (28-32) pg RDW 18.0 H (13.2-15.2) % Seg Neuts % (Manual) 85.0 H (40.0-70.0) % Lymphocytes % (Manual) 6.0 L (13.4-35.0) % Nucleated RBC % 1.0 H (0.0-0.9) % Seg Neutrophils # Man 13.8 H (1.8-7.7) K/mm3 Lymphocytes # (Manual) 1.0 L (1.2-5.4) K/mm3 Fibrinogen (211-480) mg/dl D-Dimer (0-234) ng/mlDDU Heparin Anti-Xa Level (0.3-0.7) U.I./ml Chloride 108.5 H (98-107) mmol/L Carbon Dioxide 21 L (22-30) mmol/L BUN 49 H (7-17) mg/dL Glucose 186 H (65-100) mg/dL POC Glucose 181 H (70-105) mg/dL Iron 14 L (37-170) ug/dL TIBC 138 L (250-450) mcg/dL Total Protein 5.7 L (6.3-8.2) g/dL Albumin 2.4 L (3.9-5) g/dL 10/20/21 10/20/21 Range/Units 10:45 12:14 WBC (4.5-11.0) K/mm3 RBC (3.65-5.03) M/mm3 Hgb (10.1-14.3) gm/dl Hct (30.3-42.9) % MCV (79-97) fl MCH (28-32) pg RDW (13.2-15.2) % Seg Neuts % (Manual) (40.0-70.0) % Lymphocytes % (Manual) (13.4-35.0) % Nucleated RBC % (0.0-0.9) % Seg Neutrophils # Man (1.8-7.7) K/mm3 Lymphocytes # (Manual) (1.2-5.4) K/mm3 Fibrinogen (211-480) mg/dl D-Dimer (0-234) ng/mlDDU Heparin Anti-Xa Level 0.14 L (0.3-0.7) U.I./ml Chloride (98-107) mmol/L Carbon Dioxide (22-30) mmol/L BUN (7-17) mg/dL Glucose (65-100) mg/dL POC Glucose 192 H (70-105) mg/dL Iron (37-170) ug/dL TIBC (250-450) mcg/dL Total Protein (6.3-8.2) g/dL Albumin (3.9-5) g/dL
[2021-10-20 14:28] LABS: ABG Base Excess -1.3 mmol/L (-2.0-3.0); ABG HCO3 23.7 mmol/L (20.0-26.0); ABG Methemoglobin 0.5 % (0.0-1.5); ABG Oxygen Saturation 96.5 % (95.0-99.0); ABG PCO2 40.6 mm Hg; ABG PH 7.384 pH Units (7.350-7.450)
--- NOTE | 2021-10-20 18:15 | Progress Note ---
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 A/P: Neuro: Sedated, h/o CVA, Alzheimer's, nonverbal at baseline, seizure disorder -Avoid delirium -Reorientation as needed -Continue home Keppra -Sedated with propofol -RASS goal 0 to -1 -Aspiration/seizure precautions -As needed analgesia -Maintain sleep-wake cycle Cardiac: Hypotension, h/o HTN, CHF, pacemaker placement -Blood pressure monitoring per protocol -s/p vasopressor support with Levophed -Cardiology consulted, appreciate recommendations -Echocardiogram LVEF 45 to 50%, RVSP 45-50 mmHg, moderate left ventricular hypertrophy, trace to small anterior pericardial effusion no tamponade -Hold home antihypertensive regimen at this time -Admit proBNP 6606 -s/p IV Lasix Respiratory: Acute hypoxic respiratory failure -CCM consulted, appreciate recommendations -Intubated on 10/15 with 7 oett at 23 at the lips -A.m. vent settings: Assist-control rate 16, tidal volume 400, PEEP 10, FiO2 40% -See RT notes for titration -A.m. ABG and pm CXR noted -VAP bundle -SPO2 monitoring GI: Protein calorie malnutrition -24 hours +928 ml -PEG tube in place -PPI -NTR consult for tube feedings -BR: Senokot -BM 10/18 : NAD -Strict intake and output -Renally dose medications -Avoid nephrotoxic medications -Daily weights -Trend BMP -Magallanes catheter discontinued today ID: Severe Sepsis with Shock (POA), COVID 19 PNA, Lactic acidosis, possible aspiration PNA, Staph aureus tracheal aspirate -CXR showed B PNA -CT chest showed B consolidation (left greater than right) -Infectious disease consulted, appreciate recommendations -Antibiotic therapy with cefepime and Ancef -Procalcitonin 39.5, CRP 26.9 -Droplet/contact precautions -Trend COVID-19 inflammatory markers -Vitamin D/vitamin C/zinc -Dexamethasone 6 mg daily (10/16-10/26) -Remdisivir (10/16-10/21) -Monitor WBC and temperature curve -10/15 Tracheal aspirate with Staph aureus -Vancomycin discontinued, Ancef initiated -f/u MRSA PCR Endo: h/o DM -Avoid hypoglycemia -Lantus, titrate as needed -SSI, high-dose -Accu-Cheks q. 6 Heme: Leukocytosis, acute bilateral common femoral DVT, iron deficiency anemia -heme-onc consulted, appreciate recommendations -recommends lovenox -S/p iron IV -CTA chest without PE -Home Xarelto switched to heparin gtt -Bilateral lower extremities doppler ultrasound shows acute bilateral common femoral DVT -Trend CBC -SCDs while in bed -Transfuse hemoglobin less than 7 The high probability of a clinically significant, sudden or life threatening deterioration of the [multi] system(s) required my full and direct attention, intervention and personal management. The aggregate critical care time was [60] minutes. This time is in addition to time spent performing reported procedures but includes the following: [x] Data Review and interpretation [x] Patient assessment and monitoring of vital signs [x] Documentation [x] Medication orders and management Disposition Plan: icu Total Time Spent with Patient (Minutes): 60 History Interval history: This is a 86-year-old female with HTN, CVA (2019), DM, seizure disorder, right lower leg DVT (on Xarelto), nonverbal at baseline, Alzheimer, CHF with pacemaker in situ who presented to the emergency department via EMS for severe respiratory distress with hypoxia. Upon arrival EMS patient was found to be in in respiratory distress and with altered mental status with SPO2 of 70% on room air. She was placed on BiPAP and transferred to the emergency department. In the emergency department patient was intubated for airway protection and increasing oxygen demands. Work-up in the emergency department included a CXR which showed possible aspiration pneumonia, leukocytosis, elevated proBNP, elevated CRP, elevated dddimer, lactic acidosis, hypomagnesemia, hyponatremia and elevated proBNP. Patient was admitted to the hospitalist service with CHF exacerbation, acute hypoxic respiratory failure, possible aspiration pneumonia and is a COVID-19 PUI with consults to [facility] cardiology and infectious disease. 10/16: Patient COVID-19 PCR positive, given IVF, CVP measuring initiated, weaning levophed as tolerated. Started on remdesivir/vit c/vit d/ zinc. 10/17: Acute DVT noted in bilateral common femoral vein patient started on heparin drip, magnesium and potassium repleted, vent changes per [facility]. Started remdesivir yesterday. 10/18: Remains off Levophed, given 500 mL bolus of normal saline. Increase Lantus. Permissive hypercapnia per [facility]. 10/19: Hematology/oncology consulted due to acute on chronic DVT, remains on remdesivir/steroids/vancomycin and cefepime. Tracheal aspirate grew Staph aureus. Levophed remains off. BP and UOP improved after NS bolus yesterday 10/20: MRSA PCR negative, vancomycin discontinued and started on Ancef. heme/onc plans to discontinue heparin gtt and initiation of Lovenox. Hospitalist Physical - Physical exam Narrative exam: General appearance: Present: other (Patient is sedated, on the ventilator) - EENT Eyes: Present: PERRL, EOM intact ENT: dentition normal - Neck Neck: Present: normal ROM - Respiratory Respiratory effort: normal Respiratory: bilateral: diminished - Cardiovascular Rhythm: regular Heart Sounds: Present: S1 & S2. Absent: systolic murmur, diastolic murmur - Extremities Extremities: no ischemia, pulses intact, pulses symmetrical, No edema, normal temperature, normal color Peripheral Pulses: within normal limits - Abdominal General gastrointestinal: soft, non-tender, non-distended, normal bowel sounds - Integumentary Integumentary: Present: warm, dry - Psychiatric Psychiatric: cooperative - Neurologic Neurologic: CNII-XII intact, moves all extremities - Allied Health Allied health notes reviewed: nursing, RT, social work - Constitutional Vitals: Temp Pulse Resp BP Pulse Ox 99 F 80 15 94/55 98 10/20/21 16:00 10/20/21 17:45 10/20/21 17:45 10/20/21 17:45 10/20/21 17:45 General appearance: Present: other (Patient is sedated, on the ventilator) HEART Score - HEART Score Age: > 65 Risk factors: 1-2 risk factors Troponin: Troponin T 0.015 ng/mL (0.00-0.029) 10/18/21 11:30 Troponin: 1-3x normal limit - Critical Actions Critical Actions: 4-6 pts:12-16.6% risk of adverse cardiac event. Should be admitted Results - Labs CBC & Chem 7: 10/20/21 05:00 10/20/21 05:00 Labs: Laboratory Last Values WBC 16.2 K/mm3 (4.5-11.0) H 10/20/21 05:00 RBC 3.04 M/mm3 (3.65-5.03) L 10/20/21 05:00 Hgb 7.3 gm/dl (10.1-14.3) L 10/20/21 05:00 Hct 23.6 % (30.3-42.9) L 10/20/21 05:00 MCV 78 fl (79-97) L 10/20/21 05:00 MCH 24 pg (28-32) L 10/20/21 05:00 MCHC 31 % (30-34) 10/20/21 05:00 RDW 18.0 % (13.2-15.2) H 10/20/21 05:00 Plt Count 356 K/mm3 (140-440) 10/20/21 05:00 Add Manual Diff Complete 10/20/21 05:00 Total Counted 100 10/20/21 05:00 Seg Neutrophils % Associate Data Scientist 10/17/21 06:02 Seg Neuts % (Manual) 85.0 % (40.0-70.0) H 10/20/21 05:00 Band Neutrophils % 5.0 % 10/20/21 05:00 Lymphocytes % (Manual) 6.0 % (13.4-35.0) L 10/20/21 05:00 Reactive Lymphs % (Man) 0 % 10/20/21 05:00 Monocytes % (Manual) 3.0 % (0.0-7.3) 10/20/21 05:00 Eosinophils % (Manual) 0 % (0.0-4.3) 10/20/21 05:00 Basophils % (Manual) 0 % (0.0-1.8) 10/20/21 05:00 Metamyelocytes % 1.0 % 10/20/21 05:00 Myelocytes % 0 % 10/20/21 05:00 Promyelocytes % 0 % 10/20/21 05:00 Blast Cells % 0 % 10/20/21 05:00 Nucleated RBC % 1.0 % (0.0-0.9) H 10/20/21 05:00 Seg Neutrophils # Man 13.8 K/mm3 (1.8-7.7) H 10/20/21 05:00 Band Neutrophils # 0.8 K/mm3 10/20/21 05:00 Lymphocytes # (Manual) 1.0 K/mm3 (1.2-5.4) L 10/20/21 05:00 Abs React Lymphs (Man) 0.0 K/mm3 10/20/21 05:00 Monocytes # (Manual) 0.5 K/mm3 (0.0-0.8) 10/20/21 05:00 Eosinophils # (Manual) 0.0 K/mm3 (0.0-0.4) 10/20/21 05:00 Basophils # (Manual) 0.0 K/mm3 (0.0-0.1) 10/20/21 05:00 Metamyelocytes # 0.2 K/mm3 10/20/21 05:00 Myelocytes # 0.0 K/mm3 10/20/21 05:00 Promyelocytes # 0.0 K/mm3 10/20/21 05:00 Blast Cells # 0.0 K/mm3 10/20/21 05:00 WBC Morphology Not Reportable 10/20/21 05:00 Hypersegmented Neuts Not Reportable 10/20/21 05:00 Hyposegmented Neuts Not Reportable 10/20/21 05:00 Hypogranular Neuts Not Reportable 10/20/21 05:00 Smudge Cells Not Reportable 10/20/21 05:00 Toxic Granulation Not Reportable 10/20/21 05:00 Toxic Vacuolation Not Reportable 10/20/21 05:00 Dohle Bodies Not Reportable 10/20/21 05:00 Pelger-Huet Anomaly Not Reportable 10/20/21 05:00 Girma Rods Not Reportable 10/20/21 05:00 Platelet Estimate Consistent w auto 10/20/21 05:00 Clumped Platelets Rare 10/20/21 05:00 Plt Clumps, EDTA Not Reportable 10/20/21 05:00 Large Platelets Not Reportable 10/20/21 05:00 Giant Platelets Not Reportable 10/20/21 05:00 Platelet Satelliting Not Reportable 10/20/21 05:00 Plt Morphology Comment Not Reportable 10/20/21 05:00 RBC Morphology Not Reportable 10/20/21 05:00 Dimorphic RBCs Not Reportable 10/20/21 05:00 Polychromasia Not Reportable 10/20/21 05:00 Hypochromasia 1+ 10/20/21 05:00 Poikilocytosis Not Reportable 10/20/21 05:00 Anisocytosis Not Reportable 10/20/21 05:00 Microcytosis Not Reportable 10/20/21 05:00 Macrocytosis Not Reportable 10/20/21 05:00 Spherocytes Not Reportable 10/20/21 05:00 Pappenheimer Bodies Not Reportable 10/20/21 05:00 Sickle Cells Not Reportable 10/20/21 05:00 Target Cells Few 10/20/21 05:00 Tear Drop Cells Few 10/20/21 05:00 Ovalocytes Not Reportable 10/20/21 05:00 Helmet Cells Not Reportable 10/20/21 05:00 [place] Bodies Not Reportable 10/20/21 05:00 [place] Rings Not Reportable 10/20/21 05:00 [place] Cells Not Reportable 10/20/21 05:00 Bite Cells Not Reportable 10/20/21 05:00 Crenated Cell Not Reportable 10/20/21 05:00 Elliptocytes Not Reportable 10/20/21 05:00 Acanthocytes (Spur) Not Reportable 10/20/21 05:00 Rouleaux Not Reportable 10/20/21 05:00 Hemoglobin C Crystals Not Reportable 10/20/21 05:00 Schistocytes Not Reportable 10/20/21 05:00 Malaria parasites Not Reportable 10/20/21 05:00 Bro[place] Bodies Not Reportable 10/20/21 05:00 Hem Pathologist Commnt No 10/20/21 05:00 PT 14.6 Sec. (12.2-14.9) 10/15/21 16:15 INR 1.03 (0.87-1.13) 10/15/21 16:15 APTT 38.0 Sec. (24.2-36.6) H 10/15/21 16:15 Fibrinogen 803 mg/dl (211-480) H 10/20/21 04:25 D-Dimer 1817.20 ng/mlDDU (0-234) H 10/20/21 04:25 Heparin Anti-Xa Level 0.14 U.I./ml (0.3-0.7) L 10/20/21 10:45 ABG pH 7.384 pH Units (7.350-7.450) 10/20/21 13:45 POC ABG pCO2 48.1 mmHg (32.0-48.0) H 10/18/21 09:00 ABG pCO2 40.6 mm Hg 10/20/21 13:45 POC ABG pO2 103.0 mmHg (83-108) 10/18/21 09:00 ABG pO2 87.0 mm Hg (80.0-90.0) 10/20/21 13:45 POC ABG HCO3 22.2 10/18/21 09:00 ABG HCO3 23.7 mmol/L (20.0-26.0) 10/20/21 13:45 ABG O2 Saturation 96.5 % (95.0-99.0) 10/20/21 13:45 ABG O2 Content 10.7 (0.0-44) 10/20/21 13:45 POC ABG Base Excess -4.3 10/18/21 09:00 ABG Base Excess -1.3 mmol/L (-2.0-3.0) 10/20/21 13:45 ABG Hemoglobin 7.9 gm/dl (12.0-16.0) L 10/20/21 13:45 ABG Oxyhemoglobin 95.4 (94-98) 10/18/21 09:00 ABG Carboxyhemoglobin 0.9 % (0.0-5.0) 10/20/21 13:45 ABG Methemoglobin 0.5 % (0.0-1.5) 10/20/21 13:45 ABG Sodium 136.8 mmol/L (136.0-145.0) 10/18/21 09:00 ABG Potassium 4.0 mmol/L (3.40-4.50) 10/18/21 09:00 ABG Chloride 104.0 mmol/L (98-107) 10/18/21 09:00 ABG Glucose 252 mg/dL (65-95) H 10/18/21 09:00 Oxyhemoglobin 95.1 % (95.0-99.0) 10/20/21 13:45 Carboxyhemoglobin 1.3 (0.5-1.5) 10/18/21 09:00 FiO2 40 % 10/20/21 13:45 FiO2 % 50 10/18/21 09:00 Sodium 143 mmol/L (137-145) 10/20/21 05:00 Potassium 4.3 mmol/L (3.6-5.0) 10/20/21 05:00 Chloride 108.5 mmol/L (98-107) H 10/20/21 05:00 Carbon Dioxide 21 mmol/L (22-30) L 10/20/21 05:00 Anion Gap 18 mmol/L 10/20/21 05:00 BUN 49 mg/dL (7-17) H 10/20/21 05:00 Creatinine 1.1 mg/dL (0.6-1.2) 10/20/21 05:00 Estimated GFR 57 ml/min 10/20/21 05:00 BUN/Creatinine Ratio 45 % 10/20/21 05:00 Glucose 186 mg/dL (65-100) H 10/20/21 05:00 POC Glucose 182 mg/dL (70-105) H 10/20/21 17:16 Lactic Acid 1.20 mmol/L (0.7-2.0) 10/17/21 06:02 Calcium 8.5 mg/dL (8.4-10.2) 10/20/21 05:00 Phosphorus 3.80 mg/dL (2.5-4.5) D 10/17/21 06:02 Magnesium 2.60 mg/dL (1.7-2.3) H 10/18/21 04:40 Iron 14 ug/dL (37-170) L 10/20/21 05:00 TIBC 138 mcg/dL (250-450) L 10/20/21 05:00 Ferritin 383.0 ng/mL (10.0-200.0) H 10/19/21 02:40 Total Bilirubin 0.30 mg/dL (0.1-1.2) 10/20/21 05:00 Direct Bilirubin 0.3 mg/dL (0-0.2) H 10/17/21 06:02 Indirect Bilirubin 0.1 mg/dL 10/17/21 06:02 AST 17 units/L (5-40) 10/20/21 05:00 ALT 13 units/L (7-56) 10/20/21 05:00 Alkaline Phosphatase 59 units/L (35-129) 10/20/21 05:00 Ammonia 38.0 umol/L (25-60) 10/15/21 16:15 Lactate Dehydrogenase 223 units/L (91-180) H 10/19/21 02:40 Troponin T 0.015 ng/mL (0.00-0.029) 10/18/21 11:30 C-Reactive Protein 9.30 mg/dL (0.00-1.30) H 10/19/21 02:40 NT-Pro-B Natriuret Pep 6606 pg/mL (0-900) H 10/15/21 16:15 Total Protein 5.7 g/dL (6.3-8.2) L 10/20/21 05:00 Albumin 2.4 g/dL (3.9-5) L 10/20/21 05:00 Albumin/Globulin Ratio 0.7 % 10/20/21 05:00 Triglycerides 82 mg/dL (2-149) 10/19/21 02:40 Cholesterol 99 mg/dL (50-199) 10/15/21 18:00 LDL Cholesterol Direct 46 mg/dL (50-130) L 10/15/21 18:00 HDL Cholesterol 25 mg/dL (40-59) L 10/15/21 18:00 Cholesterol/HDL Ratio 3.96 % 10/15/21 18:00 Lipase 19 units/L (13-60) 10/15/21 16:15 Procalcitonin 39.51 ng/mL (<0.15) 10/16/21 23:31 Arterial Blood Glucose 252 mg/dL (65-95) H 10/18/21 09:00 Arterial Blood Ionized Calcium 4.7 mg/dL (4.6-5.3) 10/18/21 09:00 Urine Color Yellow (Yellow) 10/15/21 Unknown Urine Turbidity Cloudy (Clear) 10/15/21 Unknown Urine pH 5.0 (5.0-7.0) 10/15/21 Unknown Ur Specific [place] 1.016 (1.003-1.030) 10/15/21 Unknown Urine Protein >500 mg/dL (Negative) 10/15/21 Unknown Urine Glucose (UA) 50 mg/dL (Negative) 10/15/21 Unknown Urine Ketones Neg mg/dL (Negative) 10/15/21 Unknown Urine Blood Neg (Negative) 10/15/21 Unknown Urine Nitrite Neg (Negative) 10/15/21 Unknown Urine Bilirubin Neg (Negative) 10/15/21 Unknown Urine Urobilinogen < 2.0 mg/dL (<2.0) 10/15/21 Unknown Ur Leukocyte Esterase Neg (Negative) 10/15/21 Unknown Urine WBC (Auto) 5.0 /HPF (0.0-6.0) 10/15/21 Unknown Urine RBC (Auto) 2.0 /HPF (0.0-6.0) 10/15/21 Unknown U Epithel Cells (Auto) 2.0 /HPF (0-13.0) 10/15/21 Unknown Urine Bacteria (Auto) 1+ /HPF (Negative) 10/15/21 Unknown Calcium Oxalate Crystal 1+ 10/15/21 Unknown Amorphous Crystals 3+ 10/15/21 Unknown Urine Mucus Few /HPF 10/15/21 Unknown Urine Yeast (Budding) 1+ /HPF 10/15/21 Unknown Nasal Screen MRSA (PCR) Negative (Negative) 10/18/21 13:25 Salicylates < 0.3 mg/dL (2.8-20.0) L 10/15/21 16:15 Urine Opiates Screen Negative 10/15/21 Unknown Urine Methadone Screen Negative 10/15/21 Unknown Acetaminophen 5.0 ug/mL (10.0-30.0) L 10/15/21 16:15 Ur Barbiturates Screen Negative 10/15/21 Unknown Ur Phencyclidine Scrn Negative 10/15/21 Unknown Ur Amphetamines Screen Negative 10/15/21 Unknown U Benzodiazepines Scrn Negative 10/15/21 Unknown Urine Cocaine Screen Negative 10/15/21 Unknown U Marijuana (THC) Screen Negative 10/15/21 Unknown Drugs of Abuse Note Disclamer 10/15/21 Unknown Coronavirus (PCR) Positive (Negative) A 10/16/21 09:36 Microbiology: Microbiology 10/15/21 16:15 Peripheral/Venous Blood Culture - Preliminary NO GROWTH AFTER 4 DAYS 10/15/21 16:15 Peripheral/Venous Blood Culture - Preliminary NO GROWTH AFTER 4 DAYS 10/15/21 16:35 Tracheal Aspirate Sputum Culture - Preliminary Staphylococcus Aureus Magallanes/IV: Voiding Method Indwelling Catheter Active Medications - Current Medications Current Medications: Generic Name Dose Route Start Last Admin Trade Name Freq PRN Reason Stop Dose Admin Acetaminophen 650 mg 10/16/21 00:57 10/16/21 21:51 Acetaminophen 325 Mg Tab PO 650 mg Q4H PRN Administration Pain MILD(1-3)/Fever >100.5/KEYS Lipase/Protease/Amylase 1 each 10/16/21 01:07 Lipase 10,500/Protease 25,000/Amylase 43,750 (Units) Dr Schuler FEEDTUBE PRN PRN For Clogged Feeding Tube Ascorbic Acid 500 mg 10/17/21 10:00 10/20/21 10:42 Ascorbic Acid 500 Mg Tab PO 500 mg QDAY MUNA Administration Cholecalciferol 5,000 unit 10/17/21 10:00 10/20/21 10:43 Cholecalciferol (Vit D3) 5,000 Unit Tab PO 5,000 unit DAILY MUNA Administration Dexamethasone 8 mg 10/16/21 20:00 10/20/21 10:42 Dexamethasone 4 Mg Tab FEEDTUBE 10/25/21 10:01 8 mg QDAY MUNA Administration Famotidine 20 mg 10/17/21 22:00 10/20/21 10:42 Famotidine 20 Mg Tab FEEDTUBE 20 mg BID MUNA Administration Fentanyl 50 mcg 10/20/21 11:42 Fentanyl 100 Mcg/2 Ml Inj IV Q10MIN PRN ANALGESIA Heparin Sodium (Porcine) 2,000 unit 10/17/21 14:00 Heparin 10,000 Units/10 Ml Vial IV Q6H PRN Anti-Xa Assay < 0.1 units/ml Propofol 1,000 mg in 100 mls @ 1.633 mls/hr 10/15/21 16:00 10/20/21 07:45 Diprivan 10 Mg/Ml IV 0 mcg/kg/min TITR MUNA 0 mls/hr Titration Protocol 5 MCG/KG/MIN NORepinephrine/NS 8 MG-250 ML 8 mg in 250 mls @ 3.75 mls/hr 10/15/21 18:00 10/17/21 03:13 Norepinephrine/Ns 8 Mg-250 Ml (Double Conc) IV 1 mcg/min TITRATE MUNA 1.875 mls/hr Administration Protocol 2 MCG/MIN REMDESIVIR 100 mg/ Sodium 250 mls @ 500 mls/hr 10/17/21 21:00 10/19/21 21:47 Chloride IV 10/20/21 21:29 500 mls/hr Q24HR@2100 MUNA Administration Heparin Sodium/Sodium Chloride 25,000 unit in 500 mls @ 16 mls/hr 10/17/21 14:00 10/20/21 12:10 Heparin/ 0.45% Nacl-25,000 Unit/500 Ml IV 1,050 units/hr TITR MUNA 21 mls/hr Titration Protocol 800 UNITS/HR Fentanyl Citrate 2,000 mcg in 100 mls @ 2.75 mls/hr 10/20/21 12:00 10/20/21 12:02 Fentanyl Drip Premix IV 1 mcg/kg/hr TITR MUNA 2.75 mls/hr Administration Protocol 1 MCG/KG/HR Cefazolin Sodium 2 gm/ Sodium 100 mls @ 200 mls/hr 10/20/21 14:15 10/20/21 17:50 Chloride IV 10/25/21 02:44 200 mls/hr Q12H [facility] Administration Protocol Insulin Glargine 15 units 10/18/21 22:00 10/19/21 21:48 Insulin Glargine 100 Units/Ml SUB-Q 15 units QHS [facility] Administration Insulin Human Lispro 0 unit 10/16/21 09:00 10/20/21 18:12 Insulin Lispro 100 Unit/Ml SUB-Q 3 unit Q6HR [facility] Administration Protocol Levetiracetam 500 mg 10/16/21 11:00 10/20/21 10:41 Levetiracetam 500 Mg/5 Ml Oral Liqd PO 500 mg BID MUNA Administration Metoclopramide HCl 10 mg 10/16/21 01:02 Metoclopramide 10 Mg/2 Ml Inj IV Q6H PRN Nausea And Vomiting Ondansetron HCl 4 mg 10/16/21 00:57 Ondansetron 4 Mg/2 Ml Inj IV Q3H PRN Nausea And Vomiting Senna/Docusate Sodium 1 tab 10/16/21 22:00 10/19/21 21:48 Sennosides/Docusate Sodium 8.6/50 Mg Tab FEEDTUBE 1 tab QHS [facility] Administration Simple Syrup 15 ml 10/16/21 01:07 Simple Syrup 15 Ml FEEDTUBE PRN PRN Hypoglycemia Simple Syrup 30 ml 10/16/21 01:07 Simple Syrup 15 Ml FEEDTUBE PRN PRN Hypoglycemia Sodium Bicarbonate 325 mg 10/16/21 01:07 Sodium Bicarbonate 325 Mg Tab FEEDTUBE PRN PRN For Clogged Feeding Tube Sodium Chloride 10 ml 10/16/21 01:00 10/20/21 10:43 Sodium Chloride 0.9% 10 Ml Flush Syringe IV 10 ml BID MUNA Administration Sodium Chloride 10 ml 10/16/21 00:57 Sodium Chloride 0.9% 10 Ml Flush Syringe IV PRN PRN LINE FLUSH Sodium Chloride 5 ml 10/16/21 13:57 Sodium Chloride 0.9% 1000 Ml Iv Soln IV PRN PRN CVP Sodium Chloride 50 ml 10/16/21 21:00 10/19/21 23:05 Sodium Chloride 0.9% 50 Ml Ivpb IV 10/20/21 21:01 50 ml Q24HR@2100 MUNA Administration Zinc Sulfate 220 mg 10/16/21 22:00 10/20/21 10:42 Zinc Sulfate 220 Mg Cap PO 220 mg BID MUNA Administration Nutrition/Malnutrition Assess - Dietary Evaluation Nutrition/Malnutrition Findings: Nutrition Notes Start: 10/16/21 10:33 Freq: Status: Active Protocol: Document 10/18/21 16:08 ANTIONE (Rec: 10/18/21 16:15 ANTIONE [id number]) Nutrition Notes Initial or Follow up Brief Note Current Diet TF-Promote @ 41 ml/hr (from L 10/16). Height 5 ft 5 in Weight 55 kg [place] Body Weight (kg) 56.81 BMI 20.1 Weight change and time frame No body weight change reported . Weight Status Appropriate Subjective/Other Information RD consult for routine F/U on TF tolerance. TF continues as prescribed, therefore, well tolerated. Percent of energy/protein needs met: Prescribed Promote @ 41 ml/hr provides for energy/protein needs (985 Kcal/62 g) during LOS, plus 43 Kcal from propofol. 100% Kcal; 93% AA. Current % PO Other Minimum of two criteria No #1 Nutrition Diagnosis Inadequate oral intake Diagnosis Progress(for reassessment Continues documentation) Nutrition Intervention Nutrition Support: Continue Promote @ 41 ml/hr. Flush: 30 ml water Q 4 hr, or as per MD. % RDI: 100% Kcal; 93% AA. Goal #1 Provide at least 75% of energy /protein needs through Enteral Feeding during LOS. Follow-Up By: 10/25/21 Additional Comments Continue monitoring TF tolerance and BM.
[2021-10-20 18:42] LABS: INR 1.18 (0.87-1.13)
[2021-10-20] MEDS: SENNOSIDES/DOCUSATE SODIUM 8.6/50 MG TAB FEEDTUBE SCH (21:22)
[2021-10-20] MEDS: INSULIN GLARGINE 100 UNITS/ML SUB-Q SCH (21:23)
[2021-10-20] MEDS: SODIUM CHLORIDE 0.9% 50 ML IVPB IV SCH (21:23)
[2021-10-20] MEDS: REMDESIVIR 100 MG in SODIUM CHLORIDE 0.9% 250ML 250 ML IV SCH (21:24)
[2021-10-20] MEDS: HEPARIN/ 0.45% NACL DRIP 25,000 UNIT/500 ML BAG IV SCH (22:19)
[2021-10-21] MEDS: INSULIN LISPRO 100 UNIT/ML SUB-Q SCH ×4 (01:00→19:03)
[2021-10-21 05:33] LABS: Hematocrit 22.1 % (30.3-42.9); Hemoglobin 6.8 gm/dl (10.1-14.3); Mean Corpuscular HGB Conc 31 % (30-34); Mean Corpuscular Volume 77 fl (79-97); Platelet Count 375 K/mm3 (140-440); Red Blood Count 2.88 M/mm3 (3.65-5.03); Red Cell Distribution Width 18.2 % (13.2-15.2)
[2021-10-21 05:47] LABS: BUN/Creatinine Ratio 47; Blood Urea Nitrogen 42 mg/dL (7-17); Calcium 8.6 mg/dL (8.4-10.2); Hemolysis Index 0
[2021-10-21] MEDS ORDERED: SODIUM CHLORIDE 0.9% 500 ML 500 ML IV SCH (07:00)
[2021-10-21] MEDS: CHOLECALCIFEROL (VIT D3) 5,000 UNIT TAB PO SCH (09:57)
[2021-10-21] MEDS: ASCORBIC ACID 500 MG TAB PO SCH (09:57)
[2021-10-21] MEDS: ZINC SULFATE 220 MG CAP PO SCH ×2 (09:57→22:11)
[2021-10-21] MEDS: levETIRAcetam 500 MG/5 ML ORAL LIQD PO SCH ×2 (09:57→22:11)
[2021-10-21] MEDS: FAMOTIDINE 20 MG TAB FEEDTUBE SCH ×2 (09:57→22:11)
[2021-10-21] MEDS: DEXAMETHASONE 4 MG TAB FEEDTUBE SCH (09:57)
--- NOTE | 2021-10-21 10:52 | Progress Note ---
Assessment and Plan Hypotension Cardiac: Hypotension, h/o HTN, CHF, pacemaker placement -Secondary to sepsis. -Echocardiogram LVEF 45 to 50%, with moderate pulmonary hypertension. -Continue IV pressor support. -No further cardiac recommendations. Sick sinus syndrome -Status post pacemaker. Respiratory: Acute hypoxic respiratory failure -Currently on ventilator managed by primary team. Severe Sepsis with Shock (POA), COVID 19 PNA, Lactic acidosis, possible a spiration PNA, Staph aureus tracheal aspirate -Managed by primary team No further cardiac recommendations. Prognosis is extremely guarded. Subjective Date of service: 10/21/21 Principal diagnosis: AHRF; Pneumonia; Septic shock; COVID-19 infection; CHF; DVT; NSTEMI Interval history: Patient continues to do poorly. Still intubated and critical. Objective Vital Signs Temp Pulse Pulse Resp BP Pulse Ox 10/21/21 09:52 80 87/46 100 10/21/21 08:30 80 15 87/46 100 10/21/21 08:15 80 16 89/43 99 10/21/21 08:00 80 80 16 87/47 100 10/21/21 07:45 80 16 98/57 100 10/21/21 07:30 80 23 81/47 10/21/21 07:15 80 22 84/46 99 10/21/21 07:00 80 35 H 95/49 10/21/21 06:45 85 26 H 90/47 100 10/21/21 06:30 80 24 97/47 10/21/21 06:15 84 20 89/49 99 10/21/21 06:00 80 28 H 100/54 10/21/21 05:45 80 14 123/77 99 10/21/21 05:30 80 16 87/49 10/21/21 05:15 80 16 86/54 10/21/21 05:00 80 17 88/48 99 10/21/21 04:45 80 16 88/48 100 10/21/21 04:30 80 16 85/47 10/21/21 04:15 80 16 83/46 100 10/21/21 04:00 80 80 16 90/51 99 10/21/21 03:45 80 16 85/49 100 10/21/21 03:30 80 16 102/54 10/21/21 03:29 96.8 F L 10/21/21 03:21 80 87/50 100 10/21/21 03:15 80 16 87/50 10/21/21 03:00 80 16 88/51 100 10/21/21 02:45 80 16 89/51 10/21/21 02:30 80 16 90/56 10/21/21 02:15 80 16 96/56 10/21/21 02:00 80 16 118/68 10/21/21 01:46 80 16 139/82 100 10/21/21 01:30 80 16 86/49 99 10/21/21 01:15 80 16 87/49 98 10/21/21 01:00 80 16 88/48 100 10/21/21 00:45 80 16 98/53 99 10/21/21 00:30 80 16 107/58 10/21/21 00:15 80 16 90/53 99 10/21/21 00:12 79 16 88/51 99 10/21/21 00:00 97.3 F L 80 80 16 88/51 98 10/20/21 23:45 79 16 91/55 100 10/20/21 23:30 80 16 107/61 98 10/20/21 23:16 80 17 130/87 96 10/20/21 23:00 80 16 97/57 98 10/20/21 22:45 80 15 98/58 97 10/20/21 22:30 80 17 106/62 98 10/20/21 22:15 80 16 96/58 99 10/20/21 22:00 80 15 106/58 10/20/21 21:45 80 16 107/61 10/20/21 21:30 80 16 96/56 100 10/20/21 21:15 79 16 96/56 10/20/21 21:00 80 16 100/57 10/20/21 20:45 80 16 98/58 10/20/21 20:30 80 16 101/58 97 10/20/21 20:15 80 16 99/60 95 10/20/21 20:00 80 80 16 103/60 95 10/20/21 19:54 97.5 F L 10/20/21 19:45 80 16 96/55 96 10/20/21 19:30 87 16 149/73 95 10/20/21 19:15 80 16 104/60 10/20/21 19:00 80 14 92/53 99 10/20/21 18:45 80 16 92/53 98 10/20/21 18:30 80 16 94/52 99 10/20/21 18:15 80 16 95/53 99 10/20/21 18:00 80 15 95/53 98 10/20/21 17:45 80 15 94/55 98 10/20/21 17:30 80 16 92/50 10/20/21 17:15 80 16 90/52 98 10/20/21 17:01 80 15 94/56 100 10/20/21 17:00 80 15 94/56 10/20/21 16:45 80 15 91/52 98 10/20/21 16:30 80 17 92/55 10/20/21 16:15 80 16 98/55 10/20/21 16:00 99 F 80 80 17 101/58 98 10/20/21 15:45 80 15 118/63 99 10/20/21 15:30 80 18 104/63 97 10/20/21 15:15 80 17 97/56 98 10/20/21 15:00 80 17 104/60 97 10/20/21 14:45 80 19 93/53 10/20/21 14:30 80 19 94/53 10/20/21 14:15 80 20 92/52 99 10/20/21 14:00 80 18 94/52 97 10/20/21 13:45 80 17 100/54 97 10/20/21 13:30 80 19 103/60 10/20/21 13:15 80 23 96/51 95 10/20/21 13:00 80 25 H 106/56 10/20/21 12:45 80 24 112/59 95 10/20/21 12:30 80 25 H 109/63 94 10/20/21 12:15 80 25 H 119/61 94 10/20/21 12:00 98 F 80 80 35 H 152/75 95 10/20/21 11:46 80 33 H 198/85 99 10/20/21 11:45 80 30 H 198/85 98 10/20/21 11:30 77 13 117/71 97 10/20/21 11:15 80 16 117/71 100 10/20/21 11:00 80 18 109/64 100 - Physical Examination General: Other (Unresponsive, on the ventilator) HEENT: Positive: Other (Pupils fixed) Neck: Positive: neck supple Cardiac: Positive: Reg Rate and Rhythm Lungs: Positive: No Wheeze, Rales, Rhonchi Neuro: Positive: Other (Unresponsive, on the ventilator) Abdomen: Positive: Soft Skin: Positive: Clear Extremities: Absent: edema - Labs and Meds Coagulation 10/20/21 Range/Units 18:05 PT 16.3 H (12.2-14.9) Sec. INR 1.18 H (0.87-1.13) CBC 10/21/21 Range/Units 04:53 WBC 18.6 H (4.5-11.0) K/mm3 RBC 2.88 L (3.65-5.03) M/mm3 Hgb 6.8 L (10.1-14.3) gm/dl Hct 22.1 L (30.3-42.9) % Plt Count 375 (140-440) K/mm3 Comprehensive Metabolic Panel 10/21/21 Range/Units 04:53 Sodium 146 H (137-145) mmol/L Potassium 4.6 (3.6-5.0) mmol/L Chloride 113.0 H (98-107) mmol/L Carbon Dioxide 24 (22-30) mmol/L BUN 42 H (7-17) mg/dL Creatinine 0.9 (0.6-1.2) mg/dL Glucose 165 H (65-100) mg/dL Calcium 8.6 (8.4-10.2) mg/dL Pacemaker: ventricular pacing w/capt - Allied health notes Allied health notes reviewed: nursing
--- NOTE | 2021-10-21 13:04 | Progress Note ---
Assessment and Plan Cultures: 10/15/2021 blood culture: no growth COVID-19 PCR: Positive 10/15/2021 sputum culture: Staph aureus 10/18/2021 MRSA nasal PCR: Negative A/P: 86-year-old female with hypertension, prior CVA, diabetes, CHF, indwelling cardiac device admitted with resp distress: #Severe sepsis with septic shock, likely secondary to bilateral pneumonia with possible aspiration pneumonia. Initial labs showed leukocytosis with WBC 17.2, D-dimer 7433, lactate of 5.6, proBNP 6606, CRP 25.9, ferritin 418.8. UA with no pyuria. Procalcitonin 39.5. Not a candidate for Actemra due to very high white count and procalcitonin with concern for superadded bacterial infection #COVID-19 pneumonia: COVID PCR positive. #Acute hypoxic respiratory failure: on the vent #CHF, indwelling cardiac device: BNP elevated. Cardiology on board. #Prior CVA Recs: -continue steroids, completed Remdesivir for COVID-19 -continue IV Ancef 2gm q12 hrs x 4 more days -guarded prognosis Yogi Maher MD, FACP, [facility] ([facility] O: [phone] F: [phone] Subjective Date of service: 10/21/21 Principal diagnosis: AHRF; Pneumonia; Septic shock; COVID-19 infection; CHF; DVT; NSTEMI Interval history: No fever. Remains on the vent. Objective - Exam Narrative Exam: Physical Exam: Constitutional: sedated, intubated, on the vent Head, Ears, Nose: Normocephalic, atraumatic. External ears, nose normal Eyes: Conjunctivae/corneas clear. No icterus. No ptosis. Neck: intubated Oral: intubated Cardiovascular: S1, S2 + Respiratory: AE fair GI: Soft, bowel sounds + Musculoskeletal: No pedal edema, no cyanosis. Skin: No rash or abscess Hem/Lymphatic: No palpable cervical or supraclavicular nodes. No lymphangitis Psych: no agitation Neurological: sedated, intubated, on the vent, exam limited - Constitutional Vitals: Vital Signs Temp Pulse Resp BP Pulse Ox 97.7 F 80 17 89/46 91 10/21/21 12:00 10/21/21 12:15 10/21/21 12:15 10/21/21 12:15 10/21/21 12:15 Temperature -Last 24 Hours Temperature 97.7 F Temperature 96.8 F Temperature 97.3 F Temperature 97.5 F Temperature 99 F - Labs CBC & Chem 7: 10/21/21 04:53 10/21/21 04:53 Labs: Abnormal lab results 10/20/21 10/20/21 10/20/21 Range/Units 13:45 17:16 18:05 WBC (4.5-11.0) K/mm3 RBC (3.65-5.03) M/mm3 Hgb (10.1-14.3) gm/dl Hct (30.3-42.9) % MCV (79-97) fl MCH (28-32) pg RDW (13.2-15.2) % PT 16.3 H (12.2-14.9) Sec. INR 1.18 H (0.87-1.13) ABG Hemoglobin 7.9 L (12.0-16.0) gm/dl Sodium (137-145) mmol/L Chloride (98-107) mmol/L BUN (7-17) mg/dL Glucose (65-100) mg/dL POC Glucose 182 H (70-105) mg/dL Crossmatch 10/21/21 10/21/21 10/21/21 Range/Units 00:23 04:53 04:53 WBC 18.6 H (4.5-11.0) K/mm3 RBC 2.88 L (3.65-5.03) M/mm3 Hgb 6.8 L (10.1-14.3) gm/dl Hct 22.1 L (30.3-42.9) % MCV 77 L (79-97) fl MCH 24 L (28-32) pg RDW 18.2 H (13.2-15.2) % PT (12.2-14.9) Sec. INR (0.87-1.13) ABG Hemoglobin (12.0-16.0) gm/dl Sodium 146 H (137-145) mmol/L Chloride 113.0 H (98-107) mmol/L BUN 42 H (7-17) mg/dL Glucose 165 H (65-100) mg/dL POC Glucose 188 H (70-105) mg/dL Crossmatch 10/21/21 10/21/21 10/21/21 Range/Units 05:19 08:35 11:43 WBC (4.5-11.0) K/mm3 RBC (3.65-5.03) M/mm3 Hgb (10.1-14.3) gm/dl Hct (30.3-42.9) % MCV (79-97) fl MCH (28-32) pg RDW (13.2-15.2) % PT (12.2-14.9) Sec. INR (0.87-1.13) ABG Hemoglobin (12.0-16.0) gm/dl Sodium (137-145) mmol/L Chloride (98-107) mmol/L BUN (7-17) mg/dL Glucose (65-100) mg/dL POC Glucose 160 H 126 H (70-105) mg/dL Crossmatch See Detail
--- NOTE | 2021-10-21 13:24 | XRay Report ---
XR chest 1V ap INDICATION / CLINICAL INFORMATION: Acute Hypoxemia Atelectasis. COMPARISON: 10/19/2021 FINDINGS: SUPPORT DEVICES: The esophageal temperature probe, terminates over the left mainstem bronchus. Recomm end repositioning. Endotracheal tube, right IJ central venous catheter, and left-sided cardiac pacema ker are stable. HEART /PULMONARY VASCULATURE: Unchanged. LUNGS / PLEURA: Bibasilar airspace opacities and small left pleural effusion appear unchanged. No pne umothorax. IMPRESSION: The esophageal temperature probe terminates over the left mainstem bronchus. Recommend repositioning. Otherwise stable exam with bibasilar airspace disease and small left pleural effusion. Signer Name: Nirav Millan MD Signed: 10/21/2021 1:20 PM Workstation Name: As Seen on [id number]
[2021-10-21] MEDS: fentaNYL DRIP Premix 2,000 MCG/100 ML BAG IV SCH (14:44)
[2021-10-21] MEDS: HEPARIN/ 0.45% NACL DRIP 25,000 UNIT/500 ML BAG IV SCH (15:05)
--- NOTE | 2021-10-21 15:21 | Progress Note ---
Assessment and Plan Acute hypoxemic respiratory failure on MVS Aspiration pneumonia Septic shock COVID-19 infection DVT CHF H/O CVA Adult FTT Leukocytosis Anemia that is microcytic Lactic acidosis Hypomagnesemia NSTEMI Oropharyngeal dysphagia Dementia - stat CXR and address ? Atelectasis - transitioned to Lovenox - placed on SBT with p-supp at 20 cm H2O - ABG after 2 hours to assess ventilation - continue care as below otherwise; - continue daily SAT and SBT assessment as tolerated - continue IV Heparin P.E. protocol - continue Ancef; de-escalate per ID recommendations - wean Levophed for target MAP > 65 mmHg - continue to wean supplemental oxygen for target O2 sat's > 90% acutely - VAP bundle addressed - continue lung protective strategies - continue bronchodilators with pulmonary hygiene per RT - wean per pulmonary driven protocols otherwise - sedation prn for target RASS 0 to -1 - continue to avoid nephrotoxins, renally dose all medications - continue mobility protocols to prevent pressure ulcers - PT/OT as tolerated - Wound care per RN/WCT - continue accuchecks with glycemic control per SSI (While critically ill target blood glucose of 140-180 mg/dL; avoid hypoglycemia) - home oxygen evaluation at discharge - GI & VTE prophylaxis - Flu & pneumovax per protocol - continue other care per attending / other consultants - prn analgesia per pain score COVID SPECIFIC INTERVENTIONS - Remdesivir as per ID/Pulmonary developed protocols (Receiving) - Not as candidate for Actemra - continue systemic steroids for severe COVID-19 infection empirically (Dexamethasone) - follow repeat COVID tests results - zinc and vitamin C supplementation - Monitor inflammatory markers per facility protocol - ferritin, Ddimer, CRP - therapeutic anticoagulation per system Protocol based on d-dimer and clinical considerations (on IV Heparin re: DVT) - Contact and airborne isolation .... Re-evaluate in am & prn CONDITION: CRITICAL PROGNOSIS: GUARDED CODE STATUS: FULL CODE The high probability of a clinically significant, sudden or life-threatening deterioration of the [respiratory, cardiovascular, hematologic & neurologic] system(s) required my full and direct attention, intervention and personal management. The aggregate critical care time was [35] minutes without overlap. Time includes spent on; [x] Data Review and interpretation [x] Patient assessment and monitoring of vital signs [x] Documentation [x] Medication orders and management Subjective Date of service: 10/21/21 Principal diagnosis: AHRF; Pneumonia; Septic shock; COVID-19 infection; CHF; DVT; NSTEMI Interval history: Patient is seen today for: AHRF; Aspiration pneumonia; Septic shock; COVID-19 infection; CHF; DVT; NSTEMI Seen and examined at bedside; 24hour events reviewed; nursing and respiratory care staff consulted; no adverse overnight events reported to me; resting peacefully in bed; episodes of desaturation reported overnight; remains on MVS w ith AMS; no emesis or overt aspiration; afebrile Objective Vital Signs - 12hr 10/21/21 10/21/21 10/21/21 03:21 03:29 03:30 Temperature 96.8 F L Pulse Rate 80 80 Pulse Rate [ From Monitor] Respiratory 16 Rate Blood Pressure 87/50 102/54 O2 Sat by Pulse 100 Oximetry 10/21/21 10/21/21 10/21/21 03:45 04:00 04:15 Temperature Pulse Rate 80 80 80 Pulse Rate [ 80 From Monitor] Respiratory 16 16 16 Rate Blood Pressure 85/49 90/51 83/46 O2 Sat by Pulse 100 99 100 Oximetry 10/21/21 10/21/21 10/21/21 04:30 04:45 05:00 Temperature Pulse Rate 80 80 80 Pulse Rate [ From Monitor] Respiratory 16 16 17 Rate Blood Pressure 85/47 88/48 88/48 O2 Sat by Pulse 100 99 Oximetry 10/21/21 10/21/21 10/21/21 05:15 05:30 05:45 Temperature Pulse Rate 80 80 80 Pulse Rate [ From Monitor] Respiratory 16 16 14 Rate Blood Pressure 86/54 87/49 123/77 O2 Sat by Pulse 99 Oximetry 10/21/21 10/21/21 10/21/21 06:00 06:15 06:30 Temperature Pulse Rate 80 84 80 Pulse Rate [ From Monitor] Respiratory 28 H 20 24 Rate Blood Pressure 100/54 89/49 97/47 O2 Sat by Pulse 99 Oximetry 10/21/21 10/21/21 10/21/21 06:45 07:00 07:15 Temperature Pulse Rate 85 80 80 Pulse Rate [ From Monitor] Respiratory 26 H 35 H 22 Rate Blood Pressure 90/47 95/49 84/46 O2 Sat by Pulse 100 99 Oximetry 10/21/21 10/21/21 10/21/21 07:30 07:45 08:00 Temperature Pulse Rate 80 80 80 Pulse Rate [ 80 From Monitor] Respiratory 23 16 16 Rate Blood Pressure 81/47 98/57 87/47 O2 Sat by Pulse 100 100 Oximetry 10/21/21 10/21/21 10/21/21 08:15 08:30 08:45 Temperature Pulse Rate 80 80 80 Pulse Rate [ From Monitor] Respiratory 16 15 16 Rate Blood Pressure 89/43 87/46 86/47 O2 Sat by Pulse 99 100 100 Oximetry 10/21/21 10/21/21 10/21/21 09:00 09:15 09:30 Temperature Pulse Rate 80 80 80 Pulse Rate [ From Monitor] Respiratory 16 16 16 Rate Blood Pressure 87/47 100/55 104/49 O2 Sat by Pulse 99 99 Oximetry 10/21/21 10/21/21 10/21/21 09:45 09:52 10:00 Temperature Pulse Rate 80 80 80 Pulse Rate [ From Monitor] Respiratory 17 16 Rate Blood Pressure 98/47 87/46 94/48 O2 Sat by Pulse 94 100 94 Oximetry 10/21/21 10/21/21 10/21/21 10:15 10:30 10:45 Temperature Pulse Rate 80 80 80 Pulse Rate [ From Monitor] Respiratory 16 16 16 Rate Blood Pressure 110/53 92/53 93/49 O2 Sat by Pulse 98 98 Oximetry 10/21/21 10/21/21 10/21/21 11:00 11:15 11:30 Temperature Pulse Rate 80 80 82 Pulse Rate [ From Monitor] Respiratory 19 16 16 Rate Blood Pressure 93/49 89/49 89/49 O2 Sat by Pulse 99 98 71 L Oximetry 10/21/21 10/21/21 10/21/21 11:45 12:00 12:15 Temperature 97.7 F Pulse Rate 80 80 80 Pulse Rate [ 80 From Monitor] Respiratory 17 16 17 Rate Blood Pressure 112/55 112/55 89/46 O2 Sat by Pulse 97 95 91 Oximetry 10/21/21 12:40 Temperature Pulse Rate 83 Pulse Rate [ From Monitor] Respiratory Rate Blood Pressure 89/46 O2 Sat by Pulse 91 Oximetry Constitutional: no acute distress, other (elderly and chronically ill looking female with mildly increased respiratory effort at rest) Eyes: non-icteric ENT: oropharynx dry, other (ETT 23 cm JESSICA) Neck: supple, no lymphadenopathy, no JVD Effort: mildly labored Ascultation: Bilateral: diminished breath sounds, rhonchi Percussion: Bilateral: not dull Cardiovascular: regular rate and rhythm Gastrointestinal: normoactive bowel sounds, soft, non-tender, non-distended, other (PEG tube) Integumentary: rash (xeroderma type) Neurologic: pupils equal and round, unable to assess Psychiatric: other (unable to assess re: AMS) CBC and BMP: 10/22/21 04:30 10/22/21 04:30 ABG, PT/INR, D-dimer: ABG ABG pH 7.384 pH Units (7.350-7.450) 10/20/21 13:45 POC ABG pCO2 48.1 mmHg (32.0-48.0) H 10/18/21 09:00 ABG pCO2 40.6 mm Hg 10/20/21 13:45 POC ABG pO2 103.0 mmHg (83-108) 10/18/21 09:00 ABG pO2 87.0 mm Hg (80.0-90.0) 10/20/21 13:45 POC ABG HCO3 22.2 10/18/21 09:00 ABG O2 Saturation 96.5 % (95.0-99.0) 10/20/21 13:45 PT/INR, D-dimer PT 16.3 Sec. (12.2-14.9) H 10/20/21 18:05 INR 1.18 (0.87-1.13) H 10/20/21 18:05 D-Dimer 1817.20 ng/mlDDU (0-234) H 10/20/21 04:25 Abnormal lab findings: Abnormal Labs 10/15/21 10/15/21 10/15/21 16:15 16:15 16:15 WBC 17.2 H RBC Hgb 9.0 L Hct 29.7 L MCV 78 L MCH 24 L RDW 17.5 H Seg Neuts % (Manual) 88.0 H Lymphocytes % (Manual) 3.0 L Nucleated RBC % Seg Neutrophils # Man 15.1 H Lymphocytes # (Manual) 0.5 L PT INR APTT 38.0 H Fibrinogen D-Dimer 7433.97 H Heparin Anti-Xa Level ABG pH POC ABG pCO2 ABG pO2 ABG HCO3 ABG O2 Saturation ABG Base Excess ABG Hemoglobin ABG Sodium ABG Chloride ABG Glucose Oxyhemoglobin Sodium Potassium Chloride Carbon Dioxide BUN Glucose POC Glucose Lactic Acid 5.60 H* Calcium Phosphorus Magnesium Iron TIBC Ferritin Direct Bilirubin Lactate Dehydrogenase Troponin T C-Reactive Protein NT-Pro-B Natriuret Pep Total Protein Albumin LDL Cholesterol Direct HDL Cholesterol Arterial Blood Glucose Salicylates Acetaminophen Coronavirus (PCR) Crossmatch 10/15/21 10/15/21 10/15/21 16:15 16:15 16:15 WBC RBC Hgb Hct MCV MCH RDW Seg Neuts % (Manual) Lymphocytes % (Manual) Nucleated RBC % Seg Neutrophils # Man Lymphocytes # (Manual) PT INR APTT Fibrinogen D-Dimer Heparin Anti-Xa Level ABG pH POC ABG pCO2 ABG pO2 ABG HCO3 ABG O2 Saturation ABG Base Excess ABG Hemoglobin ABG Sodium ABG Chloride ABG Glucose Oxyhemoglobin Sodium 134 L Potassium Chloride 89.6 L Carbon Dioxide BUN 27 H Glucose 234 H POC Glucose Lactic Acid Calcium Phosphorus Magnesium 1.40 L Iron TIBC Ferritin Direct Bilirubin 0.3 H Lactate Dehydrogenase Troponin T C-Reactive Protein NT-Pro-B Natriuret Pep 6606 H Total Protein 6.2 L Albumin 3.1 L LDL Cholesterol Direct HDL Cholesterol Arterial Blood Glucose Salicylates < 0.3 L Acetaminophen 5.0 L Coronavirus (PCR) Crossmatch 10/15/21 10/15/21 10/15/21 16:15 16:15 16:15 WBC RBC Hgb Hct MCV MCH RDW Seg Neuts % (Manual) Lymphocytes % (Manual) Nucleated RBC % Seg Neutrophils # Man Lymphocytes # (Manual) PT INR APTT Fibrinogen D-Dimer Heparin Anti-Xa Level ABG pH POC ABG pCO2 ABG pO2 ABG HCO3 ABG O2 Saturation ABG Base Excess ABG Hemoglobin ABG Sodium ABG Chloride ABG Glucose Oxyhemoglobin Sodium Potassium Chloride Carbon Dioxide BUN Glucose 221 H POC Glucose Lactic Acid Calcium Phosphorus Magnesium Iron TIBC Ferritin 418.8 H 421.6 H Direct Bilirubin Lactate Dehydrogenase 233 H Troponin T C-Reactive Protein 25.90 H NT-Pro-B Natriuret Pep Total Protein Albumin LDL Cholesterol Direct HDL Cholesterol Arterial Blood Glucose Salicylates Acetaminophen Coronavirus (PCR) Crossmatch 10/15/21 10/15/21 10/15/21 16:42 18:00 18:00 WBC RBC Hgb Hct MCV MCH RDW Seg Neuts % (Manual) Lymphocytes % (Manual) Nucleated RBC % Seg Neutrophils # Man Lymphocytes # (Manual) PT INR APTT Fibrinogen D-Dimer Heparin Anti-Xa Level ABG pH 7.348 L POC ABG pCO2 ABG pO2 75.4 L ABG HCO3 30.6 H ABG O2 Saturation 94.3 L ABG Base Excess 3.9 H ABG Hemoglobin 10.9 L ABG Sodium ABG Chloride ABG Glucose Oxyhemoglobin 93.1 L Sodium Potassium Chloride Carbon Dioxide BUN Glucose POC Glucose Lactic Acid 3.10 H* Calcium Phosphorus Magnesium Iron TIBC Ferritin Direct Bilirubin Lactate Dehydrogenase Troponin T 0.036 H C-Reactive Protein NT-Pro-B Natriuret Pep Total Protein Albumin LDL Cholesterol Direct 46 L HDL Cholesterol 25 L Arterial Blood Glucose Salicylates Acetaminophen Coronavirus (PCR) Crossmatch 10/15/21 10/16/21 10/16/21 20:58 01:55 04:50 WBC RBC Hgb Hct MCV MCH RDW Seg Neuts % (Manual) Lymphocytes % (Manual) Nucleated RBC % Seg Neutrophils # Man Lymphocytes # (Manual) PT INR APTT Fibrinogen D-Dimer Heparin Anti-Xa Level ABG pH 7.490 H POC ABG pCO2 ABG pO2 ABG HCO3 ABG O2 Saturation ABG Base Excess ABG Hemoglobin 9.7 L ABG Sodium 128.9 L ABG Chloride 96.0 L ABG Glucose 235 H Oxyhemoglobin Sodium 135 L Potassium Chloride 94.9 L Carbon Dioxide BUN 28 H Glucose 226 H POC Glucose Lactic Acid Calcium Phosphorus Magnesium Iron TIBC Ferritin Direct Bilirubin Lactate Dehydrogenase Troponin T 0.038 H C-Reactive Protein NT-Pro-B Natriuret Pep Total Protein Albumin LDL Cholesterol Direct HDL Cholesterol Arterial Blood Glucose 235 H Salicylates Acetaminophen Coronavirus (PCR) Crossmatch 10/16/21 10/16/21 10/16/21 09:05 09:05 09:05 WBC 14.9 H RBC 3.20 L Hgb 7.6 L Hct 24.8 L MCV 77 L MCH 24 L RDW 17.5 H Seg Neuts % (Manual) Lymphocytes % (Manual) Nucleated RBC % Seg Neutrophils # Man Lymphocytes # (Manual) PT INR APTT Fibrinogen D-Dimer Heparin Anti-Xa Level ABG pH POC ABG pCO2 ABG pO2 ABG HCO3 ABG O2 Saturation ABG Base Excess ABG Hemoglobin ABG Sodium ABG Chloride ABG Glucose Oxyhemoglobin Sodium 132 L Potassium Chloride 93.2 L Carbon Dioxide BUN 28 H Glucose 225 H POC Glucose Lactic Acid 2.30 H* Calcium 8.3 L Phosphorus Magnesium 1.30 L Iron TIBC Ferritin Direct Bilirubin Lactate Dehydrogenase Troponin T C-Reactive Protein NT-Pro-B Natriuret Pep Total Protein 5.7 L Albumin 2.4 L LDL Cholesterol Direct HDL Cholesterol Arterial Blood Glucose Salicylates Acetaminophen Coronavirus (PCR) Crossmatch 10/16/21 10/16/21 10/16/21 09:05 09:36 12:24 WBC RBC Hgb Hct MCV MCH RDW Seg Neuts % (Manual) Lymphocytes % (Manual) Nucleated RBC % Seg Neutrophils # Man Lymphocytes # (Manual) PT INR APTT Fibrinogen D-Dimer Heparin Anti-Xa Level ABG pH POC ABG pCO2 ABG pO2 ABG HCO3 ABG O2 Saturation ABG Base Excess ABG Hemoglobin ABG Sodium ABG Chloride ABG Glucose Oxyhemoglobin Sodium Potassium Chloride Carbon Dioxide BUN Glucose POC Glucose 187 H Lactic Acid Calcium Phosphorus 2.10 L Magnesium Iron TIBC Ferritin Direct Bilirubin Lactate Dehydrogenase Troponin T C-Reactive Protein NT-Pro-B Natriuret Pep Total Protein Albumin LDL Cholesterol Direct HDL Cholesterol Arterial Blood Glucose Salicylates Acetaminophen Coronavirus (PCR) Positive A Crossmatch 10/16/21 10/16/21 10/16/21 17:19 21:00 23:31 WBC RBC Hgb Hct MCV MCH RDW Seg Neuts % (Manual) Lymphocytes % (Manual) Nucleated RBC % Seg Neutrophils # Man Lymphocytes # (Manual) PT INR APTT Fibrinogen D-Dimer Heparin Anti-Xa Level ABG pH POC ABG pCO2 ABG pO2 ABG HCO3 ABG O2 Saturation ABG Base Excess ABG Hemoglobin ABG Sodium ABG Chloride ABG Glucose Oxyhemoglobin Sodium Potassium Chloride Carbon Dioxide BUN Glucose POC Glucose 128 H 132 H Lactic Acid Calcium Phosphorus Magnesium Iron TIBC Ferritin Direct Bilirubin Lactate Dehydrogenase 216 H Troponin T C-Reactive Protein 26.90 H NT-Pro-B Natriuret Pep Total Protein Albumin LDL Cholesterol Direct HDL Cholesterol Arterial Blood Glucose Salicylates Acetaminophen Coronavirus (PCR) Crossmatch 10/16/21 10/17/21 10/17/21 23:31 06:02 06:02 WBC 16.7 H RBC 3.16 L Hgb 7.6 L Hct 24.2 L MCV 77 L MCH 24 L RDW 17.7 H Seg Neuts % (Manual) 95.0 H Lymphocytes % (Manual) 1.0 L Nucleated RBC % Seg Neutrophils # Man 15.9 H Lymphocytes # (Manual) 0.2 L PT INR APTT Fibrinogen D-Dimer Heparin Anti-Xa Level ABG pH POC ABG pCO2 ABG pO2 ABG HCO3 ABG O2 Saturation ABG Base Excess ABG Hemoglobin ABG Sodium ABG Chloride ABG Glucose Oxyhemoglobin Sodium Potassium Chloride Carbon Dioxide BUN 32 H Glucose 163 H POC Glucose Lactic Acid Calcium 7.8 L Phosphorus Magnesium Iron TIBC Ferritin 428.7 H Direct Bilirubin Lactate Dehydrogenase Troponin T C-Reactive Protein NT-Pro-B Natriuret Pep Total Protein 5.7 L Albumin 2.3 L LDL Cholesterol Direct HDL Cholesterol Arterial Blood Glucose Salicylates Acetaminophen Coronavirus (PCR) Crossmatch 10/17/21 10/17/21 10/17/21 06:02 06:02 06:21 WBC RBC Hgb Hct MCV MCH RDW Seg Neuts % (Manual) Lymphocytes % (Manual) Nucleated RBC % Seg Neutrophils # Man Lymphocytes # (Manual) PT INR APTT Fibrinogen D-Dimer Heparin Anti-Xa Level ABG pH POC ABG pCO2 ABG pO2 ABG HCO3 ABG O2 Saturation ABG Base Excess ABG Hemoglobin ABG Sodium ABG Chloride ABG Glucose Oxyhemoglobin Sodium Potassium 3.5 L Chloride Carbon Dioxide BUN 32 H Glucose 216 H POC Glucose 219 H Lactic Acid Calcium Phosphorus Magnesium 1.40 L Iron TIBC Ferritin Direct Bilirubin 0.3 H Lactate Dehydrogenase 257 H Troponin T C-Reactive Protein 28.50 H NT-Pro-B Natriuret Pep Total Protein 5.8 L Albumin 2.3 L LDL Cholesterol Direct HDL Cholesterol Arterial Blood Glucose Salicylates Acetaminophen Coronavirus (PCR) Crossmatch 10/17/21 10/17/21 10/17/21 08:35 12:38 17:35 WBC RBC Hgb Hct MCV MCH RDW Seg Neuts % (Manual) Lymphocytes % (Manual) Nucleated RBC % Seg Neutrophils # Man Lymphocytes # (Manual) PT INR APTT Fibrinogen D-Dimer Heparin Anti-Xa Level ABG pH POC ABG pCO2 ABG pO2 ABG HCO3 ABG O2 Saturation ABG Base Excess ABG Hemoglobin ABG Sodium ABG Chloride ABG Glucose Oxyhemoglobin Sodium Potassium Chloride Carbon Dioxide BUN Glucose POC Glucose 216 H 262 H 230 H Lactic Acid Calcium Phosphorus Magnesium Iron TIBC Ferritin Direct Bilirubin Lactate Dehydrogenase Troponin T C-Reactive Protein NT-Pro-B Natriuret Pep Total Protein Albumin LDL Cholesterol Direct HDL Cholesterol Arterial Blood Glucose Salicylates Acetaminophen Coronavirus (PCR) Crossmatch 10/17/21 10/17/21 10/18/21 18:20 22:17 00:16 WBC RBC Hgb Hct MCV MCH RDW Seg Neuts % (Manual) Lymphocytes % (Manual) Nucleated RBC % Seg Neutrophils # Man Lymphocytes # (Manual) PT INR APTT Fibrinogen D-Dimer Heparin Anti-Xa Level 0.24 L ABG pH POC ABG pCO2 ABG pO2 ABG HCO3 ABG O2 Saturation ABG Base Excess ABG Hemoglobin ABG Sodium ABG Chloride ABG Glucose Oxyhemoglobin Sodium Potassium Chloride Carbon Dioxide BUN Glucose POC Glucose 215 H 247 H Lactic Acid Calcium Phosphorus Magnesium Iron TIBC Ferritin Direct Bilirubin Lactate Dehydrogenase Troponin T C-Reactive Protein NT-Pro-B Natriuret Pep Total Protein Albumin LDL Cholesterol Direct HDL Cholesterol Arterial Blood Glucose Salicylates Acetaminophen Coronavirus (PCR) Crossmatch 10/18/21 10/18/21 10/18/21 04:40 04:40 05:00 WBC RBC Hgb Hct MCV MCH RDW Seg Neuts % (Manual) Lymphocytes % (Manual) Nucleated RBC % Seg Neutrophils # Man Lymphocytes # (Manual) PT INR APTT Fibrinogen D-Dimer 2424.98 H Heparin Anti-Xa Level ABG pH POC ABG pCO2 ABG pO2 ABG HCO3 ABG O2 Saturation ABG Base Excess ABG Hemoglobin ABG Sodium ABG Chloride ABG Glucose Oxyhemoglobin Sodium Potassium Chloride Carbon Dioxide BUN 44 H Glucose 286 H POC Glucose Lactic Acid Calcium 7.8 L Phosphorus Magnesium 2.60 H Iron TIBC Ferritin Direct Bilirubin Lactate Dehydrogenase Troponin T C-Reactive Protein NT-Pro-B Natriuret Pep Total Protein 5.7 L Albumin 2.2 L LDL Cholesterol Direct HDL Cholesterol Arterial Blood Glucose Salicylates Acetaminophen Coronavirus (PCR) Crossmatch 10/18/21 10/18/21 10/18/21 05:16 05:39 07:29 WBC 16.4 H RBC 3.03 L Hgb 7.3 L Hct 23.5 L MCV 78 L MCH 24 L RDW 17.9 H Seg Neuts % (Manual) Lymphocytes % (Manual) Nucleated RBC % Seg Neutrophils # Man Lymphocytes # (Manual) PT INR APTT Fibrinogen D-Dimer Heparin Anti-Xa Level ABG pH POC ABG pCO2 ABG pO2 ABG HCO3 ABG O2 Saturation ABG Base Excess ABG Hemoglobin ABG Sodium ABG Chloride ABG Glucose Oxyhemoglobin Sodium Potassium Chloride Carbon Dioxide BUN Glucose POC Glucose 281 H 274 H Lactic Acid Calcium Phosphorus Magnesium Iron TIBC Ferritin Direct Bilirubin Lactate Dehydrogenase Troponin T C-Reactive Protein NT-Pro-B Natriuret Pep Total Protein Albumin LDL Cholesterol Direct HDL Cholesterol Arterial Blood Glucose Salicylates Acetaminophen Coronavirus (PCR) Crossmatch 10/18/21 10/18/21 10/18/21 09:00 11:27 11:30 WBC RBC Hgb Hct MCV MCH RDW Seg Neuts % (Manual) Lymphocytes % (Manual) Nucleated RBC % Seg Neutrophils # Man Lymphocytes # (Manual) PT INR APTT Fibrinogen D-Dimer Heparin Anti-Xa Level 0.24 L ABG pH 7.282 L POC ABG pCO2 48.1 H ABG pO2 ABG HCO3 ABG O2 Saturation ABG Base Excess ABG Hemoglobin 7.6 L ABG Sodium ABG Chloride ABG Glucose 252 H Oxyhemoglobin Sodium Potassium Chloride Carbon Dioxide BUN Glucose POC Glucose 219 H Lactic Acid Calcium Phosphorus Magnesium Iron TIBC Ferritin Direct Bilirubin Lactate Dehydrogenase Troponin T C-Reactive Protein NT-Pro-B Natriuret Pep Total Protein Albumin LDL Cholesterol Direct HDL Cholesterol Arterial Blood Glucose 252 H Salicylates Acetaminophen Coronavirus (PCR) Crossmatch 10/18/21 10/18/21 10/18/21 15:58 19:56 23:21 WBC RBC Hgb Hct MCV MCH RDW Seg Neuts % (Manual) Lymphocytes % (Manual) Nucleated RBC % Seg Neutrophils # Man Lymphocytes # (Manual) PT INR APTT Fibrinogen D-Dimer Heparin Anti-Xa Level 0.22 L ABG pH POC ABG pCO2 ABG pO2 ABG HCO3 ABG O2 Saturation ABG Base Excess ABG Hemoglobin ABG Sodium ABG Chloride ABG Glucose Oxyhemoglobin Sodium Potassium Chloride Carbon Dioxide BUN Glucose POC Glucose 264 H 198 H Lactic Acid Calcium Phosphorus Magnesium Iron TIBC Ferritin Direct Bilirubin Lactate Dehydrogenase Troponin T C-Reactive Protein NT-Pro-B Natriuret Pep Total Protein Albumin LDL Cholesterol Direct HDL Cholesterol Arterial Blood Glucose Salicylates Acetaminophen Coronavirus (PCR) Crossmatch 10/19/21 10/19/21 10/19/21 02:40 02:40 02:40 WBC RBC Hgb Hct MCV MCH RDW Seg Neuts % (Manual) Lymphocytes % (Manual) Nucleated RBC % Seg Neutrophils # Man Lymphocytes # (Manual) PT INR APTT Fibrinogen D-Dimer Heparin Anti-Xa Level ABG pH POC ABG pCO2 ABG pO2 ABG HCO3 ABG O2 Saturation ABG Base Excess ABG Hemoglobin ABG Sodium ABG Chloride ABG Glucose Oxyhemoglobin Sodium Potassium Chloride Carbon Dioxide BUN 49 H Glucose 167 H POC Glucose Lactic Acid Calcium Phosphorus Magnesium Iron TIBC Ferritin 383.0 H Direct Bilirubin Lactate Dehydrogenase 223 H Troponin T C-Reactive Protein 9.30 H NT-Pro-B Natriuret Pep Total Protein 6.2 L Albumin 2.5 L LDL Cholesterol Direct HDL Cholesterol Arterial Blood Glucose Salicylates Acetaminophen Coronavirus (PCR) Crossmatch 10/19/21 10/19/21 10/19/21 02:40 02:40 05:06 WBC 15.5 H RBC 3.13 L Hgb 7.5 L Hct 24.3 L MCV 77 L MCH 24 L RDW 17.8 H Seg Neuts % (Manual) Lymphocytes % (Manual) Nucleated RBC % Seg Neutrophils # Man Lymphocytes # (Manual) PT INR APTT Fibrinogen D-Dimer Heparin Anti-Xa Level 0.17 L ABG pH POC ABG pCO2 ABG pO2 ABG HCO3 ABG O2 Saturation ABG Base Excess ABG Hemoglobin ABG Sodium ABG Chloride ABG Glucose Oxyhemoglobin Sodium Potassium Chloride Carbon Dioxide BUN Glucose POC Glucose 152 H Lactic Acid Calcium Phosphorus Magnesium Iron TIBC Ferritin Direct Bilirubin Lactate Dehydrogenase Troponin T C-Reactive Protein NT-Pro-B Natriuret Pep Total Protein Albumin LDL Cholesterol Direct HDL Cholesterol Arterial Blood Glucose Salicylates Acetaminophen Coronavirus (PCR) Crossmatch 10/19/21 10/19/21 10/19/21 11:40 16:06 23:55 WBC RBC Hgb Hct MCV MCH RDW Seg Neuts % (Manual) Lymphocytes % (Manual) Nucleated RBC % Seg Neutrophils # Man Lymphocytes # (Manual) PT INR APTT Fibrinogen D-Dimer Heparin Anti-Xa Level ABG pH POC ABG pCO2 ABG pO2 ABG HCO3 ABG O2 Saturation ABG Base Excess ABG Hemoglobin ABG Sodium ABG Chloride ABG Glucose Oxyhemoglobin Sodium Potassium Chloride Carbon Dioxide BUN Glucose POC Glucose 146 H 244 H 229 H Lactic Acid Calcium Phosphorus Magnesium Iron TIBC Ferritin Direct Bilirubin Lactate Dehydrogenase Troponin T C-Reactive Protein NT-Pro-B Natriuret Pep Total Protein Albumin LDL Cholesterol Direct HDL Cholesterol Arterial Blood Glucose Salicylates Acetaminophen Coronavirus (PCR) Crossmatch 10/20/21 10/20/21 10/20/21 04:25 05:00 05:00 WBC 16.2 H RBC 3.04 L Hgb 7.3 L Hct 23.6 L MCV 78 L MCH 24 L RDW 18.0 H Seg Neuts % (Manual) 85.0 H Lymphocytes % (Manual) 6.0 L Nucleated RBC % 1.0 H Seg Neutrophils # Man 13.8 H Lymphocytes # (Manual) 1.0 L PT INR APTT Fibrinogen 803 H D-Dimer 1817.20 H Heparin Anti-Xa Level ABG pH POC ABG pCO2 ABG pO2 ABG HCO3 ABG O2 Saturation ABG Base Excess ABG Hemoglobin ABG Sodium ABG Chloride ABG Glucose Oxyhemoglobin Sodium Potassium Chloride 108.5 H Carbon Dioxide 21 L BUN 49 H Glucose 186 H POC Glucose Lactic Acid Calcium Phosphorus Magnesium Iron 14 L TIBC 138 L Ferritin Direct Bilirubin Lactate Dehydrogenase Troponin T C-Reactive Protein NT-Pro-B Natriuret Pep Total Protein 5.7 L Albumin 2.4 L LDL Cholesterol Direct HDL Cholesterol Arterial Blood Glucose Salicylates Acetaminophen Coronavirus (PCR) Crossmatch 10/20/21 10/20/21 10/20/21 05:11 10:45 12:14 WBC RBC Hgb Hct MCV MCH RDW Seg Neuts % (Manual) Lymphocytes % (Manual) Nucleated RBC % Seg Neutrophils # Man Lymphocytes # (Manual) PT INR APTT Fibrinogen D-Dimer Heparin Anti-Xa Level 0.14 L ABG pH POC ABG pCO2 ABG pO2 ABG HCO3 ABG O2 Saturation ABG Base Excess ABG Hemoglobin ABG Sodium ABG Chloride ABG Glucose Oxyhemoglobin Sodium Potassium Chloride Carbon Dioxide BUN Glucose POC Glucose 181 H 192 H Lactic Acid Calcium Phosphorus Magnesium Iron TIBC Ferritin Direct Bilirubin Lactate Dehydrogenase Troponin T C-Reactive Protein NT-Pro-B Natriuret Pep Total Protein Albumin LDL Cholesterol Direct HDL Cholesterol Arterial Blood Glucose Salicylates Acetaminophen Coronavirus (PCR) Crossmatch 10/20/21 10/20/21 10/20/21 13:45 17:16 18:05 WBC RBC Hgb Hct MCV MCH RDW Seg Neuts % (Manual) Lymphocytes % (Manual) Nucleated RBC % Seg Neutrophils # Man Lymphocytes # (Manual) PT 16.3 H INR 1.18 H APTT Fibrinogen D-Dimer Heparin Anti-Xa Level ABG pH POC ABG pCO2 ABG pO2 ABG HCO3 ABG O2 Saturation ABG Base Excess ABG Hemoglobin 7.9 L ABG Sodium ABG Chloride ABG Glucose Oxyhemoglobin Sodium Potassium Chloride Carbon Dioxide BUN Glucose POC Glucose 182 H Lactic Acid Calcium Phosphorus Magnesium Iron TIBC Ferritin Direct Bilirubin Lactate Dehydrogenase Troponin T C-Reactive Protein NT-Pro-B Natriuret Pep Total Protein Albumin LDL Cholesterol Direct HDL Cholesterol Arterial Blood Glucose Salicylates Acetaminophen Coronavirus (PCR) Crossmatch 10/21/21 10/21/21 10/21/21 00:23 04:53 04:53 WBC 18.6 H RBC 2.88 L Hgb 6.8 L Hct 22.1 L MCV 77 L MCH 24 L RDW 18.2 H Seg Neuts % (Manual) Lymphocytes % (Manual) Nucleated RBC % Seg Neutrophils # Man Lymphocytes # (Manual) PT INR APTT Fibrinogen D-Dimer Heparin Anti-Xa Level ABG pH POC ABG pCO2 ABG pO2 ABG HCO3 ABG O2 Saturation ABG Base Excess ABG Hemoglobin ABG Sodium ABG Chloride ABG Glucose Oxyhemoglobin Sodium 146 H Potassium Chloride 113.0 H Carbon Dioxide BUN 42 H Glucose 165 H POC Glucose 188 H Lactic Acid Calcium Phosphorus Magnesium Iron TIBC Ferritin Direct Bilirubin Lactate Dehydrogenase Troponin T C-Reactive Protein NT-Pro-B Natriuret Pep Total Protein Albumin LDL Cholesterol Direct HDL Cholesterol Arterial Blood Glucose Salicylates Acetaminophen Coronavirus (PCR) Crossmatch 10/21/21 10/21/21 10/21/21 05:19 08:35 11:43 WBC RBC Hgb Hct MCV MCH RDW Seg Neuts % (Manual) Lymphocytes % (Manual) Nucleated RBC % Seg Neutrophils # Man Lymphocytes # (Manual) PT INR APTT Fibrinogen D-Dimer Heparin Anti-Xa Level ABG pH POC ABG pCO2 ABG pO2 ABG HCO3 ABG O2 Saturation ABG Base Excess ABG Hemoglobin ABG Sodium ABG Chloride ABG Glucose Oxyhemoglobin Sodium Potassium Chloride Carbon Dioxide BUN Glucose POC Glucose 160 H 126 H Lactic Acid Calcium Phosphorus Magnesium Iron TIBC Ferritin Direct Bilirubin Lactate Dehydrogenase Troponin T C-Reactive Protein NT-Pro-B Natriuret Pep Total Protein Albumin LDL Cholesterol Direct HDL Cholesterol Arterial Blood Glucose Salicylates Acetaminophen Coronavirus (PCR) Crossmatch See Detail Chest x-ray: pending Allied health notes reviewed: nursing
--- NOTE | 2021-10-21 17:50 | Progress Note ---
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 A/P: Neuro: Sedated, h/o CVA, Alzheimer's, nonverbal at baseline, seizure disorder -Avoid delirium -Reorientation as needed -Continue home Keppra -Sedated with propofol -RASS goal 0 to -1 -Aspiration/seizure precautions -As needed analgesia -Maintain sleep-wake cycle Cardiac: Hypotension, h/o HTN, CHF, pacemaker placement -Blood pressure monitoring per protocol -s/p vasopressor support with Levophed -Cardiology consulted, appreciate recommendations -Echocardiogram LVEF 45 to 50%, RVSP 45-50 mmHg, moderate left ventricular hypertrophy, trace to small anterior pericardial effusion no tamponade -Hold home antihypertensive regimen at this time -Admit proBNP 6606 -s/p IV Lasix Respiratory: Acute hypoxic respiratory failure -CCM consulted, appreciate recommendations -Intubated on 10/15 with 7 oett at 23 at the lips -A.m. vent settings: Assist-control rate 16, tidal volume 400, PEEP 10, FiO2 40% -See RT notes for titration -reduced peep -Patient was on pressure support for 7 hours on 10/07 -A.m. ABG and pm CXR noted -CXR stat obtained d/t report of desaturation x3 even after saline lavage with RT - rad read: The esophageal temperature probe, terminates over the left mainstem bronchus. Recommend repositioning. -VAP bundle -SPO2 monitoring GI: Protein calorie malnutrition -24 hours + 653 ml -PEG tube in place -PPI -NTR consult for tube feedings -BR: Senokot -BM 10/18 : NAD -Strict intake and output -Renally dose medications -Avoid nephrotoxic medications -Daily weights -Trend BMP ID: Severe Sepsis with Shock (POA), COVID 19 PNA, Lactic acidosis, possible aspiration PNA, Staph aureus tracheal aspirate -CXR showed B PNA -CT chest showed B consolidation (left greater than right) -Infectious disease consulted, appreciate recommendations -Antibiotic therapy per ID -Procalcitonin 39.5, CRP 26.9 -Droplet/contact precautions -Trend COVID-19 inflammatory markers -Vitamin D/vitamin C/zinc -Dexamethasone 6 mg daily (10/16-10/26) -Remdisivir (10/16-10/21) -Monitor WBC and temperature curve -10/15 Tracheal aspirate with Staph aureus -Vancomycin discontinued, Ancef initiated 10/20 -f/u MRSA PCR Endo: h/o DM -Avoid hypoglycemia -Lantus, titrate as needed -SSI, high-dose -Accu-Cheks q. 6 Heme: Leukocytosis, acute bilateral common femoral DVT, iron deficiency anemia -heme-onc consulted, appreciate recommendations -recommends lovenox -S/p iron IV -CTA chest without PE -Home Xarelto switched to heparin gtt -Bilateral lower extremities doppler ultrasound shows acute bilateral common femoral DVT -Trend CBC -SCDs while in bed -Transfuse hemoglobin less than 7 -hbg 6.8 -son refuses blood at this time The high probability of a clinically significant, sudden or life threatening deterioration of the [multi] system(s) required my full and direct attention, intervention and personal management. The aggregate critical care time was [60] minutes. This time is in addition to time spent performing reported procedures but includes the following: [x] Data Review and interpretation [x] Patient assessment and monitoring of vital signs [x] Documentation [x] Medication orders and management Disposition Plan: icu Total Time Spent with Patient (Minutes): 60 History Interval history: This is a 86-year-old female with HTN, CVA (2019), DM, seizure disorder, right lower leg DVT (on Xarelto), nonverbal at baseline, Alzheimer, CHF with pacemaker in situ who presented to the emergency department via EMS for severe respiratory distress with hypoxia. Upon arrival EMS patient was found to be in in respiratory distress and with altered mental status with SPO2 of 70% on room air. She was placed on BiPAP and transferred to the emergency department. In the emergency department patient was intubated for airway protection and increasing oxygen demands. Work-up in the emergency department included a CXR which showed possible aspiration pneumonia, leukocytosis, elevated proBNP, elevated CRP, elevated dddimer, lactic acidosis, hypomagnesemia, hyponatremia and elevated proBNP. Patient was admitted to the hospitalist service with CHF exacerbation, acute hypoxic respiratory failure, possible aspiration pneumonia and is a COVID-19 PUI with consults to [facility] cardiology and infectious disease. 10/16: Patient COVID-19 PCR positive, given IVF, CVP measuring initiated, weaning levophed as tolerated. Started on remdesivir/vit c/vit d/ zinc. 10/17: Acute DVT noted in bilateral common femoral vein patient started on heparin drip, magnesium and potassium repleted, vent changes per CCM. Started remdesivir yesterday. 10/18: Remains off Levophed, given 500 mL bolus of normal saline. Increase Lantus. Permissive hypercapnia per CCM. 10/19: Hematology/oncology consulted due to acute on chronic DVT, remains on remdesivir/steroids/vancomycin and cefepime. Tracheal aspirate grew Staph aureus. Levophed remains off. BP and UOP improved after NS bolus yesterday 10/20: MRSA PCR negative, vancomycin discontinued and started on Ancef. heme/onc plans to discontinue heparin gtt and initiation of Lovenox. 10/21: Patient had desaturation x3 even after lavage with RT. Stat CXR ordered. Patient is anemic today and 1 unit of PRBC was ordered. However consent for blood transfusion was declined by son. Risk and benefits explained by RN and MARKET PRESIDENT for greater than 45 minutes total. Hospitalist Physical - Physical exam Narrative exam: General appearance: Present: other (Patient is sedated, on the ventilator) - EENT Eyes: Present: PERRL, EOM intact ENT: dentition normal - Neck Neck: Present: normal ROM - Respiratory Respiratory effort: normal Respiratory: bilateral: diminished - Cardiovascular Rhythm: regular Heart Sounds: Present: S1 & S2. Absent: systolic murmur, diastolic murmur - Extremities Extremities: no ischemia, pulses intact, pulses symmetrical, No edema, normal temperature, normal color Peripheral Pulses: within normal limits - Abdominal General gastrointestinal: soft, non-tender, non-distended, normal bowel sounds - Integumentary Integumentary: Present: warm, dry - Psychiatric Psychiatric: cooperative - Neurologic Neurologic: CNII-XII intact, moves all extremities - Allied Health Allied health notes reviewed: nursing, RT, social work - Constitutional Vitals: Temp Pulse Resp BP Pulse Ox 97.7 F 83 17 89/46 91 10/21/21 16:00 10/21/21 12:40 10/21/21 12:15 10/21/21 12:40 10/21/21 12:40 General appearance: Present: other (Patient is sedated, on the ventilator) HEART Score - HEART Score Age: > 65 Risk factors: 1-2 risk factors Troponin: Troponin T 0.015 ng/mL (0.00-0.029) 10/18/21 11:30 Troponin: 1-3x normal limit - Critical Actions Critical Actions: 4-6 pts:12-16.6% risk of adverse cardiac event. Should be admitted Results - Labs CBC & Chem 7: 10/21/21 04:53 10/21/21 04:53 Labs: Laboratory Last Values WBC 18.6 K/mm3 (4.5-11.0) H 10/21/21 04:53 RBC 2.88 M/mm3 (3.65-5.03) L 10/21/21 04:53 Hgb 6.8 gm/dl (10.1-14.3) L 10/21/21 04:53 Hct 22.1 % (30.3-42.9) L 10/21/21 04:53 MCV 77 fl (79-97) L 10/21/21 04:53 MCH 24 pg (28-32) L 10/21/21 04:53 MCHC 31 % (30-34) 10/21/21 04:53 RDW 18.2 % (13.2-15.2) H 10/21/21 04:53 Plt Count 375 K/mm3 (140-440) 10/21/21 04:53 Add Manual Diff Complete 10/20/21 05:00 Total Counted 100 10/20/21 05:00 Seg Neutrophils % [employer] 10/17/21 06:02 Seg Neuts % (Manual) 85.0 % (40.0-70.0) H 10/20/21 05:00 Band Neutrophils % 5.0 % 10/20/21 05:00 Lymphocytes % (Manual) 6.0 % (13.4-35.0) L 10/20/21 05:00 Reactive Lymphs % (Man) 0 % 10/20/21 05:00 Monocytes % (Manual) 3.0 % (0.0-7.3) 10/20/21 05:00 Eosinophils % (Manual) 0 % (0.0-4.3) 10/20/21 05:00 Basophils % (Manual) 0 % (0.0-1.8) 10/20/21 05:00 Metamyelocytes % 1.0 % 10/20/21 05:00 Myelocytes % 0 % 10/20/21 05:00 Promyelocytes % 0 % 10/20/21 05:00 Blast Cells % 0 % 10/20/21 05:00 Nucleated RBC % 1.0 % (0.0-0.9) H 10/20/21 05:00 Seg Neutrophils # Man 13.8 K/mm3 (1.8-7.7) H 10/20/21 05:00 Band Neutrophils # 0.8 K/mm3 10/20/21 05:00 Lymphocytes # (Manual) 1.0 K/mm3 (1.2-5.4) L 10/20/21 05:00 Abs React Lymphs (Man) 0.0 K/mm3 10/20/21 05:00 Monocytes # (Manual) 0.5 K/mm3 (0.0-0.8) 10/20/21 05:00 Eosinophils # (Manual) 0.0 K/mm3 (0.0-0.4) 10/20/21 05:00 Basophils # (Manual) 0.0 K/mm3 (0.0-0.1) 10/20/21 05:00 Metamyelocytes # 0.2 K/mm3 10/20/21 05:00 Myelocytes # 0.0 K/mm3 10/20/21 05:00 Promyelocytes # 0.0 K/mm3 10/20/21 05:00 Blast Cells # 0.0 K/mm3 10/20/21 05:00 WBC Morphology Not Reportable 10/20/21 05:00 Hypersegmented Neuts Not Reportable 10/20/21 05:00 Hyposegmented Neuts Not Reportable 10/20/21 05:00 Hypogranular Neuts Not Reportable 10/20/21 05:00 Smudge Cells Not Reportable 10/20/21 05:00 Toxic Granulation Not Reportable 10/20/21 05:00 Toxic Vacuolation Not Reportable 10/20/21 05:00 Dohle Bodies Not Reportable 10/20/21 05:00 Pelger-Huet Anomaly Not Reportable 10/20/21 05:00 Girma Rods Not Reportable 10/20/21 05:00 Platelet Estimate Consistent w auto 10/20/21 05:00 Clumped Platelets Rare 10/20/21 05:00 Plt Clumps, EDTA Not Reportable 10/20/21 05:00 Large Platelets Not Reportable 10/20/21 05:00 Giant Platelets Not Reportable 10/20/21 05:00 Platelet Satelliting Not Reportable 10/20/21 05:00 Plt Morphology Comment Not Reportable 10/20/21 05:00 RBC Morphology Not Reportable 10/20/21 05:00 Dimorphic RBCs Not Reportable 10/20/21 05:00 Polychromasia Not Reportable 10/20/21 05:00 Hypochromasia 1+ 10/20/21 05:00 Poikilocytosis Not Reportable 10/20/21 05:00 Anisocytosis Not Reportable 10/20/21 05:00 Microcytosis Not Reportable 10/20/21 05:00 Macrocytosis Not Reportable 10/20/21 05:00 Spherocytes Not Reportable 10/20/21 05:00 Pappenheimer Bodies Not Reportable 10/20/21 05:00 Sickle Cells Not Reportable 10/20/21 05:00 Target Cells Few 10/20/21 05:00 Tear Drop Cells Few 10/20/21 05:00 Ovalocytes Not Reportable 10/20/21 05:00 Helmet Cells Not Reportable 10/20/21 05:00 Vaz-[place] Bodies Not Reportable 10/20/21 05:00 [place] Rings Not Reportable 10/20/21 05:00 [place] Cells Not Reportable 10/20/21 05:00 Bite Cells Not Reportable 10/20/21 05:00 Crenated Cell Not Reportable 10/20/21 05:00 Elliptocytes Not Reportable 10/20/21 05:00 Acanthocytes (Spur) Not Reportable 10/20/21 05:00 Rouleaux Not Reportable 10/20/21 05:00 Hemoglobin C Crystals Not Reportable 10/20/21 05:00 Schistocytes Not Reportable 10/20/21 05:00 Malaria parasites Not Reportable 10/20/21 05:00 Brodie Bodies Not Reportable 10/20/21 05:00 Hem Pathologist Commnt No 10/20/21 05:00 PT 16.3 Sec. (12.2-14.9) H 10/20/21 18:05 INR 1.18 (0.87-1.13) H 10/20/21 18:05 APTT 38.0 Sec. (24.2-36.6) H 10/15/21 16:15 Fibrinogen 803 mg/dl (211-480) H 10/20/21 04:25 D-Dimer 1817.20 ng/mlDDU (0-234) H 10/20/21 04:25 Heparin Anti-Xa Level 0.58 U.I./ml (0.3-0.7) 10/20/21 18:05 ABG pH 7.384 pH Units (7.350-7.450) 10/20/21 13:45 POC ABG pCO2 48.1 mmHg (32.0-48.0) H 10/18/21 09:00 ABG pCO2 40.6 mm Hg 10/20/21 13:45 POC ABG pO2 103.0 mmHg (83-108) 10/18/21 09:00 ABG pO2 87.0 mm Hg (80.0-90.0) 10/20/21 13:45 POC ABG HCO3 22.2 10/18/21 09:00 ABG HCO3 23.7 mmol/L (20.0-26.0) 10/20/21 13:45 ABG O2 Saturation 96.5 % (95.0-99.0) 10/20/21 13:45 ABG O2 Content 10.7 (0.0-44) 10/20/21 13:45 POC ABG Base Excess -4.3 10/18/21 09:00 ABG Base Excess -1.3 mmol/L (-2.0-3.0) 10/20/21 13:45 ABG Hemoglobin 7.9 gm/dl (12.0-16.0) L 10/20/21 13:45 ABG Oxyhemoglobin 95.4 (94-98) 10/18/21 09:00 ABG Carboxyhemoglobin 0.9 % (0.0-5.0) 10/20/21 13:45 ABG Methemoglobin 0.5 % (0.0-1.5) 10/20/21 13:45 ABG Sodium 136.8 mmol/L (136.0-145.0) 10/18/21 09:00 ABG Potassium 4.0 mmol/L (3.40-4.50) 10/18/21 09:00 ABG Chloride 104.0 mmol/L (98-107) 10/18/21 09:00 ABG Glucose 252 mg/dL (65-95) H 10/18/21 09:00 Oxyhemoglobin 95.1 % (95.0-99.0) 10/20/21 13:45 Carboxyhemoglobin 1.3 (0.5-1.5) 10/18/21 09:00 FiO2 40 % 10/20/21 13:45 FiO2 % 50 10/18/21 09:00 Sodium 146 mmol/L (137-145) H 10/21/21 04:53 Potassium 4.6 mmol/L (3.6-5.0) 10/21/21 04:53 Chloride 113.0 mmol/L (98-107) H 10/21/21 04:53 Carbon Dioxide 24 mmol/L (22-30) 10/21/21 04:53 Anion Gap 14 mmol/L 10/21/21 04:53 BUN 42 mg/dL (7-17) H 10/21/21 04:53 Creatinine 0.9 mg/dL (0.6-1.2) 10/21/21 04:53 Estimated GFR > 60 ml/min 10/21/21 04:53 BUN/Creatinine Ratio 47 % 10/21/21 04:53 Glucose 165 mg/dL (65-100) H 10/21/21 04:53 POC Glucose 163 mg/dL (70-105) H 10/21/21 17:33 Lactic Acid 1.20 mmol/L (0.7-2.0) 10/17/21 06:02 Calcium 8.6 mg/dL (8.4-10.2) 10/21/21 04:53 Phosphorus 3.80 mg/dL (2.5-4.5) D 10/17/21 06:02 Magnesium 2.60 mg/dL (1.7-2.3) H 10/18/21 04:40 Iron 14 ug/dL (37-170) L 10/20/21 05:00 TIBC 138 mcg/dL (250-450) L 10/20/21 05:00 Ferritin 383.0 ng/mL (10.0-200.0) H 10/19/21 02:40 Total Bilirubin 0.30 mg/dL (0.1-1.2) 10/20/21 05:00 Direct Bilirubin 0.3 mg/dL (0-0.2) H 10/17/21 06:02 Indirect Bilirubin 0.1 mg/dL 10/17/21 06:02 AST 17 units/L (5-40) 10/20/21 05:00 ALT 13 units/L (7-56) 10/20/21 05:00 Alkaline Phosphatase 59 units/L (35-129) 10/20/21 05:00 Ammonia 38.0 umol/L (25-60) 10/15/21 16:15 Lactate Dehydrogenase 223 units/L (91-180) H 10/19/21 02:40 Troponin T 0.015 ng/mL (0.00-0.029) 10/18/21 11:30 C-Reactive Protein 9.30 mg/dL (0.00-1.30) H 10/19/21 02:40 NT-Pro-B Natriuret Pep 6606 pg/mL (0-900) H 10/15/21 16:15 Total Protein 5.7 g/dL (6.3-8.2) L 10/20/21 05:00 Albumin 2.4 g/dL (3.9-5) L 10/20/21 05:00 Albumin/Globulin Ratio 0.7 % 10/20/21 05:00 Triglycerides 82 mg/dL (2-149) 10/19/21 02:40 Cholesterol 99 mg/dL (50-199) 10/15/21 18:00 LDL Cholesterol Direct 46 mg/dL (50-130) L 10/15/21 18:00 HDL Cholesterol 25 mg/dL (40-59) L 10/15/21 18:00 Cholesterol/HDL Ratio 3.96 % 10/15/21 18:00 Lipase 19 units/L (13-60) 10/15/21 16:15 Procalcitonin 39.51 ng/mL (<0.15) 10/16/21 23:31 Arterial Blood Glucose 252 mg/dL (65-95) H 10/18/21 09:00 Arterial Blood Ionized Calcium 4.7 mg/dL (4.6-5.3) 10/18/21 09:00 Urine Color Yellow (Yellow) 10/15/21 Unknown Urine Turbidity Cloudy (Clear) 10/15/21 Unknown Urine pH 5.0 (5.0-7.0) 10/15/21 Unknown Ur Specific [place] 1.016 (1.003-1.030) 10/15/21 Unknown Urine Protein >500 mg/dL (Negative) 10/15/21 Unknown Urine Glucose (UA) 50 mg/dL (Negative) 10/15/21 Unknown Urine Ketones Neg mg/dL (Negative) 10/15/21 Unknown Urine Blood Neg (Negative) 10/15/21 Unknown Urine Nitrite Neg (Negative) 10/15/21 Unknown Urine Bilirubin Neg (Negative) 10/15/21 Unknown Urine Urobilinogen < 2.0 mg/dL (<2.0) 10/15/21 Unknown Ur Leukocyte Esterase Neg (Negative) 10/15/21 Unknown Urine WBC (Auto) 5.0 /HPF (0.0-6.0) 10/15/21 Unknown Urine RBC (Auto) 2.0 /HPF (0.0-6.0) 10/15/21 Unknown U Epithel Cells (Auto) 2.0 /HPF (0-13.0) 10/15/21 Unknown Urine Bacteria (Auto) 1+ /HPF (Negative) 10/15/21 Unknown Calcium Oxalate Crystal 1+ 10/15/21 Unknown Amorphous Crystals 3+ 10/15/21 Unknown Urine Mucus Few /HPF 10/15/21 Unknown Urine Yeast (Budding) 1+ /HPF 10/15/21 Unknown Nasal Screen MRSA (PCR) Negative (Negative) 10/18/21 13:25 Salicylates < 0.3 mg/dL (2.8-20.0) L 10/15/21 16:15 Urine Opiates Screen Negative 10/15/21 Unknown Urine Methadone Screen Negative 10/15/21 Unknown Acetaminophen 5.0 ug/mL (10.0-30.0) L 10/15/21 16:15 Ur Barbiturates Screen Negative 10/15/21 Unknown Ur Phencyclidine Scrn Negative 10/15/21 Unknown Ur Amphetamines Screen Negative 10/15/21 Unknown U Benzodiazepines Scrn Negative 10/15/21 Unknown Urine Cocaine Screen Negative 10/15/21 Unknown U Marijuana (THC) Screen Negative 10/15/21 Unknown Drugs of Abuse Note Disclamer 10/15/21 Unknown Coronavirus (PCR) Positive (Negative) A 10/16/21 09:36 Blood Type A POSITIVE 10/21/21 08:35 Antibody Screen Negative 10/21/21 08:35 Crossmatch See Detail 10/21/21 08:35 Microbiology: Microbiology 10/15/21 16:35 Tracheal Aspirate Sputum Culture - Final Staphylococcus Aureus 10/15/21 16:15 Peripheral/Venous Blood Culture - Final NO GROWTH AFTER 5 DAYS 10/15/21 16:15 Peripheral/Venous Blood Culture - Final NO GROWTH AFTER 5 DAYS Magallanes/IV: Voiding Method Indwelling Catheter Active Medications - Current Medications Current Medications: Generic Name Dose Route Start Last Admin Trade Name Freq PRN Reason Stop Dose Admin Acetaminophen 650 mg 10/16/21 00:57 10/16/21 21:51 Acetaminophen 325 Mg Tab PO 650 mg Q4H PRN Administration Pain MILD(1-3)/Fever >100.5/KEYS Lipase/Protease/Amylase 1 each 10/16/21 01:07 Lipase 10,500/Protease 25,000/Amylase 43,750 (Units) Dr Schuler FEEDTUBE PRN PRN For Clogged Feeding Tube Arformoterol Tartrate 15 mcg 10/21/21 20:00 Arformoterol 15 Mcg/2 Ml Nebu IH Q12HRT MUNA Ascorbic Acid 500 mg 10/17/21 10:00 10/21/21 09:57 Ascorbic Acid 500 Mg Tab PO 500 mg QDAY MUNA Administration Budesonide 0.5 mg 10/21/21 20:00 Budesonide 0.5 Mg/2 Ml Nebu IH Q12HRT MUNA Cholecalciferol 5,000 unit 10/17/21 10:00 10/21/21 09:57 Cholecalciferol (Vit D3) 5,000 Unit Tab PO 5,000 unit DAILY MUNA Administration Dexamethasone 8 mg 10/16/21 20:00 10/21/21 09:57 Dexamethasone 4 Mg Tab FEEDTUBE 10/25/21 10:01 8 mg QDAY MUNA Administration Famotidine 20 mg 10/17/21 22:00 10/21/21 09:57 Famotidine 20 Mg Tab FEEDTUBE 20 mg BID MUNA Administration Fentanyl 50 mcg 10/20/21 11:42 Fentanyl 100 Mcg/2 Ml Inj IV Q10MIN PRN ANALGESIA Heparin Sodium (Porcine) 2,000 unit 10/17/21 14:00 Heparin 10,000 Units/10 Ml Vial IV Q6H PRN Anti-Xa Assay < 0.1 units/ml Propofol 1,000 mg in 100 mls @ 1.633 mls/hr 10/15/21 16:00 10/20/21 19:22 Diprivan 10 Mg/Ml IV 0 mcg/kg/min TITR MUNA 0 mls/hr Titration Protocol 5 MCG/KG/MIN NORepinephrine/NS 8 MG-250 ML 8 mg in 250 mls @ 3.75 mls/hr 10/15/21 18:00 10/17/21 03:13 Norepinephrine/Ns 8 Mg-250 Ml (Double Conc) IV 1 mcg/min TITRATE MUNA 1.875 mls/hr Administration Protocol 2 MCG/MIN Heparin Sodium/Sodium Chloride 25,000 unit in 500 mls @ 16 mls/hr 10/17/21 14:00 10/21/21 15:05 Heparin/ 0.45% Nacl-25,000 Unit/500 Ml IV 1,050 units/hr TITR MUNA 21 mls/hr Administration Protocol 800 UNITS/HR Fentanyl Citrate 2,000 mcg in 100 mls @ 2.75 mls/hr 10/20/21 12:00 10/21/21 14:44 Fentanyl Drip Premix IV 1 mcg/kg/hr TITR MUNA 2.75 mls/hr Administration Protocol 1 MCG/KG/HR Cefazolin Sodium 2 gm/ Sodium 100 mls @ 200 mls/hr 10/20/21 14:15 10/21/21 15:05 Chloride IV 10/25/21 02:44 200 mls/hr Q12H MUNA Administration Protocol Sodium Chloride 500 mls @ 0 mls/hr 10/21/21 07:00 Nacl 0.9% 500 Ml IV 10/21/21 18:00 ONCE@[id number] [facility] As Directed Insulin Glargine 15 units 10/18/21 22:00 10/20/21 21:23 Insulin Glargine 100 Units/Ml SUB-Q 15 units QHS [facility] Administration Insulin Human Lispro 0 unit 10/16/21 09:00 10/21/21 13:05 Insulin Lispro 100 Unit/Ml SUB-Q Not Given Q6HR [facility] Protocol Levetiracetam 500 mg 10/16/21 11:00 10/21/21 09:57 Levetiracetam 500 Mg/5 Ml Oral Liqd PO 500 mg BID MUNA Administration Metoclopramide HCl 10 mg 10/16/21 01:02 Metoclopramide 10 Mg/2 Ml Inj IV Q6H PRN Nausea And Vomiting Ondansetron HCl 4 mg 10/16/21 00:57 Ondansetron 4 Mg/2 Ml Inj IV Q3H PRN Nausea And Vomiting Senna/Docusate Sodium 1 tab 10/16/21 22:00 10/20/21 21:22 Sennosides/Docusate Sodium 8.6/50 Mg Tab FEEDTUBE 1 tab QHS MUNA Administration Simple Syrup 15 ml 10/16/21 01:07 Simple Syrup 15 Ml FEEDTUBE PRN PRN Hypoglycemia Simple Syrup 30 ml 10/16/21 01:07 Simple Syrup 15 Ml FEEDTUBE PRN PRN Hypoglycemia Sodium Bicarbonate 325 mg 10/16/21 01:07 Sodium Bicarbonate 325 Mg Tab FEEDTUBE PRN PRN For Clogged Feeding Tube Sodium Chloride 10 ml 10/16/21 01:00 10/21/21 09:58 Sodium Chloride 0.9% 10 Ml Flush Syringe IV 10 ml BID MUNA Administration Sodium Chloride 10 ml 10/16/21 00:57 Sodium Chloride 0.9% 10 Ml Flush Syringe IV PRN PRN LINE FLUSH Sodium Chloride 5 ml 10/16/21 13:57 Sodium Chloride 0.9% 1000 Ml Iv Soln IV PRN PRN CVP Zinc Sulfate 220 mg 10/16/21 22:00 10/21/21 09:57 Zinc Sulfate 220 Mg Cap PO 220 mg BID MUNA Administration Nutrition/Malnutrition Assess - Dietary Evaluation Nutrition/Malnutrition Findings: Nutrition Notes Start: 10/16/21 10:33 Freq: Status: Active Protocol: Document 10/18/21 16:08 ANTIONE (Rec: 10/18/21 16:15 ANTIONE [id number]) Nutrition Notes Initial or Follow up Brief Note Current Diet TF-Promote @ 41 ml/hr (from L 10/16). Height 5 ft 5 in Weight 55 kg [place] Body Weight (kg) 56.81 BMI 20.1 Weight change and time frame No body weight change reported . Weight Status Appropriate Subjective/Other Information RD consult for routine F/U on TF tolerance. TF continues as prescribed, therefore, well tolerated. Percent of energy/protein needs met: Prescribed Promote @ 41 ml/hr provides for energy/protein needs (985 Kcal/62 g) during LOS, plus 43 Kcal from propofol. 100% Kcal; 93% AA. Current % PO Other Minimum of two criteria No #1 Nutrition Diagnosis Inadequate oral intake Diagnosis Progress(for reassessment Continues documentation) Nutrition Intervention Nutrition Support: Continue Promote @ 41 ml/hr. Flush: 30 ml water Q 4 hr, or as per MD. % RDI: 100% Kcal; 93% AA. Goal #1 Provide at least 75% of energy /protein needs through Enteral Feeding during LOS. Follow-Up By: 10/25/21 Additional Comments Continue monitoring TF tolerance and BM.
[2021-10-21 18:54] LABS: ABG Base Excess -0.2 mmol/L (-2.0-3.0); ABG HCO3 25.8 mmol/L (20.0-26.0); ABG Methemoglobin 0.4 % (0.0-1.5); ABG PCO2 49.3 mm Hg; ABG PH 7.336 pH Units (7.350-7.450); ABG PO2 83.5 mm Hg (80.0-90.0)
[2021-10-21] MEDS: BUDESONIDE 0.5 MG/2 ML NEBU IH SCH (21:28)
[2021-10-21] MEDS: ARFORMOTEROL 15 MCG/2 ML NEBU IH SCH (21:28)
[2021-10-21] MEDS: SENNOSIDES/DOCUSATE SODIUM 8.6/50 MG TAB FEEDTUBE SCH (22:11)
[2021-10-21] MEDS: INSULIN GLARGINE 100 UNITS/ML SUB-Q SCH (22:11)
[2021-10-22] MEDS: INSULIN LISPRO 100 UNIT/ML SUB-Q SCH ×4 (01:30→17:33)
[2021-10-22 07:02] LABS: Hematocrit 23.9 % (30.3-42.9); Hemoglobin 7.3 gm/dl (10.1-14.3); Mean Corpuscular HGB Conc 30 % (30-34); Mean Corpuscular Volume 79 fl (79-97); Platelet Count 454 K/mm3 (140-440); Red Blood Count 3.01 M/mm3 (3.65-5.03); Red Cell Distribution Width 18.7 % (13.2-15.2)
[2021-10-22 07:14] LABS: Alanine Aminotransferase 5 units/L (7-56); Albumin 2.5 g/dL (3.9-5); BUN/Creatinine Ratio 46; Blood Urea Nitrogen 41 mg/dL (7-17); Calcium 8.9 mg/dL (8.4-10.2); Hemolysis Index 0
[2021-10-22] MEDS: ASCORBIC ACID 500 MG TAB PO SCH (09:45)
[2021-10-22] MEDS: levETIRAcetam 500 MG/5 ML ORAL LIQD PO SCH ×2 (09:45→21:07)
[2021-10-22] MEDS: FAMOTIDINE 20 MG TAB FEEDTUBE SCH ×2 (09:45→21:07)
[2021-10-22] MEDS: CHOLECALCIFEROL (VIT D3) 5,000 UNIT TAB PO SCH (09:45)
[2021-10-22] MEDS: DEXAMETHASONE 4 MG TAB FEEDTUBE SCH (09:45)
--- NOTE | 2021-10-22 09:45 | Progress Note ---
Assessment and Plan Hypotension Cardiac: Hypotension, h/o HTN, CHF, pacemaker placement -Secondary to sepsis. -Echocardiogram LVEF 45 to 50%, with moderate pulmonary hypertension. -Continue supportive care. Hypotension limits optimization of medical therapy currently -No further cardiac recommendations. Sick sinus syndrome -Status post pacemaker. Respiratory: Acute hypoxic respiratory failure -Currently on ventilator managed by primary team. Severe Sepsis with Shock (POA), COVID 19 PNA, Lactic acidosis, possible aspiration PNA, Staph aureus tracheal aspirate -Managed by primary team No further cardiac recommendations. Prognosis is extremely guarded. Subjective Date of service: 10/22/21 Principal diagnosis: AHRF; Pneumonia; Septic shock; COVID-19 infection; CHF; DVT; NSTEMI Interval history: Patient continues to do poorly. Still intubated and critical. Objective Vital Signs Temp Pulse Pulse Pulse Resp Resp BP 10/22/21 06:45 80 16 99/53 10/22/21 06:31 80 16 115/53 10/22/21 06:15 80 12 139/79 10/22/21 06:00 80 15 131/71 10/22/21 05:45 80 16 121/62 10/22/21 05:30 80 16 118/63 10/22/21 05:15 80 17 123/66 10/22/21 05:00 80 17 116/60 10/22/21 04:45 80 18 124/64 10/22/21 04:30 80 17 128/62 10/22/21 04:15 80 16 122/68 10/22/21 04:00 80 80 16 125/65 10/22/21 03:54 96.8 F L 10/22/21 03:45 80 17 130/70 10/22/21 03:33 139/60 10/22/21 03:30 80 16 127/69 10/22/21 03:15 80 14 127/68 10/22/21 03:01 80 16 136/70 10/22/21 02:45 80 16 106/60 10/22/21 02:30 80 16 105/55 10/22/21 02:15 80 16 105/60 10/22/21 02:00 80 16 115/65 10/22/21 01:45 80 16 122/74 10/22/21 01:30 80 16 127/67 10/22/21 01:15 80 14 136/79 10/22/21 01:00 80 16 120/69 10/22/21 00:45 80 16 122/68 10/22/21 00:30 80 16 118/63 10/22/21 00:15 80 16 116/61 10/22/21 00:13 122/66 10/22/21 00:00 97.3 F L 80 80 16 122/66 10/21/21 23:45 80 16 118/62 10/21/21 23:31 80 15 177/86 10/21/21 23:15 80 16 124/70 10/21/21 23:00 80 16 119/63 10/21/21 22:54 10/21/21 22:45 80 14 116/61 10/21/21 22:30 80 15 113/60 10/21/21 22:15 80 15 115/63 10/21/21 22:03 80 14 132/67 10/21/21 22:00 80 13 132/67 10/21/21 21:45 80 14 157/83 10/21/21 21:31 80 17 153/90 10/21/21 21:30 80 32 H 153/90 10/21/21 21:28 83 19 10/21/21 21:15 80 13 123/68 10/21/21 21:00 80 13 124/68 10/21/21 20:45 80 13 115/69 10/21/21 20:30 80 13 114/66 10/21/21 20:15 80 15 132/76 10/21/21 20:00 80 80 14 104/62 10/21/21 19:45 80 14 98/58 10/21/21 19:30 80 14 94/56 10/21/21 19:25 97.7 F 10/21/21 19:15 80 13 98/59 10/21/21 19:00 80 14 94/53 10/21/21 18:45 80 13 92/53 10/21/21 18:30 80 15 111/61 10/21/21 18:15 80 11 L 95/56 10/21/21 18:00 80 12 118/63 10/21/21 17:45 80 16 156/83 10/21/21 17:30 80 13 114/63 10/21/21 17:15 80 13 102/58 10/21/21 17:00 80 13 111/62 01/15/22 16:45 80 14 114/60 10/21/21 16:35 80 36 H 92/53 10/21/21 16:30 80 18 143/84 10/21/21 16:15 80 14 102/54 10/21/21 16:00 97.7 F 80 80 13 97/51 10/21/21 15:45 80 16 93/54 10/21/21 15:30 80 16 100/67 10/21/21 15:15 80 16 98/59 10/21/21 15:00 80 17 142/69 10/21/21 14:45 80 15 125/70 10/21/21 14:31 80 17 110/75 10/21/21 14:15 80 16 91/49 10/21/21 14:00 80 16 84/51 10/21/21 13:45 80 16 94/52 10/21/21 13:30 80 16 89/57 10/21/21 13:15 80 16 84/48 10/21/21 13:00 80 16 99/55 10/21/21 12:45 80 16 86/44 10/21/21 12:40 83 89/46 10/21/21 12:30 80 16 93/54 10/21/21 12:15 80 17 89/46 10/21/21 12:00 97.7 F 80 80 16 112/55 10/21/21 11:45 80 17 112/55 10/21/21 11:30 82 16 89/49 10/21/21 11:15 80 16 89/49 10/21/21 11:00 80 19 93/49 10/21/21 10:45 80 16 93/49 10/21/21 10:30 80 16 92/53 10/21/21 10:15 80 16 110/53 10/21/21 10:00 80 16 94/48 10/21/21 09:52 80 87/46 10/21/21 09:45 80 17 98/47 Pulse Ox 10/22/21 06:45 98 10/22/21 06:31 98 10/22/21 06:15 100 10/22/21 06:00 93 10/22/21 05:45 96 10/22/21 05:30 99 10/22/21 05:15 98 10/22/21 05:00 97 10/22/21 04:45 97 10/22/21 04:30 99 10/22/21 04:15 97 10/22/21 04:00 96 10/22/21 03:54 10/22/21 03:45 10/22/21 03:33 97 10/22/21 03:30 98 10/22/21 03:15 99 10/22/21 03:01 99 10/22/21 02:45 100 10/22/21 02:30 100 10/22/21 02:15 100 10/22/21 02:00 99 10/22/21 01:45 99 10/22/21 01:30 98 10/22/21 01:15 99 10/22/21 01:00 100 10/22/21 00:45 10/22/21 00:30 98 10/22/21 00:15 99 10/22/21 00:13 99 10/22/21 00:00 98 10/21/21 23:45 99 10/21/21 23:31 99 10/21/21 23:15 99 10/21/21 23:00 10/21/21 22:54 100 10/21/21 22:45 99 10/21/21 22:30 99 10/21/21 22:15 96 10/21/21 22:03 97 10/21/21 22:00 96 10/21/21 21:45 98 10/21/21 21:31 100 10/21/21 21:30 100 10/21/21 21:28 10/21/21 21:15 100 10/21/21 21:00 100 10/21/21 20:45 99 10/21/21 20:30 10/21/21 20:15 100 10/21/21 20:00 100 10/21/21 19:45 10/21/21 19:30 100 10/21/21 19:25 10/21/21 19:15 10/21/21 19:00 100 10/21/21 18:45 98 10/21/21 18:30 100 10/21/21 18:15 98 10/21/21 18:00 98 10/21/21 17:45 98 10/21/21 17:30 97 10/21/21 17:15 93 10/21/21 17:00 91 10/21/21 16:45 94 10/21/21 16:35 96 10/21/21 16:30 98 10/21/21 16:15 10/21/21 16:00 100 10/21/21 15:45 99 10/21/21 15:30 10/21/21 15:15 99 10/21/21 15:00 93 10/21/21 14:45 100 10/21/21 14:31 98 10/21/21 14:15 99 10/21/21 14:00 99 10/21/21 13:45 99 10/21/21 13:30 97 10/21/21 13:15 96 10/21/21 13:00 95 10/21/21 12:45 10/21/21 12:40 91 10/21/21 12:30 85 10/21/21 12:15 91 10/21/21 12:00 95 10/21/21 11:45 97 10/21/21 11:30 71 L 10/21/21 11:15 98 10/21/21 11:00 99 10/21/21 10:45 10/21/21 10:30 98 10/21/21 10:15 98 10/21/21 10:00 94 10/21/21 09:52 100 10/21/21 09:45 94 - Physical Examination Narrative exam: Please note that history and physical obtained from the chart. In view of the COVID patient was not directly examined by me. General: Other (Unresponsive, on the ventilator) HEENT: Positive: Other (Pupils fixed) Neck: Positive: neck supple, trachea midline Cardiac: Positive: Reg Rate and Rhythm Lungs: Positive: clear to auscultation Neuro: Positive: Other (Unresponsive, on the ventilator) Abdomen: Positive: Soft Skin: Positive: Clear Extremities: Absent: edema - Labs and Meds Cardiac Enzymes 10/22/21 Range/Units 04:30 AST 18 (5-40) units/L CBC 10/22/21 Range/Units 04:30 WBC 21.5 H (4.5-11.0) K/mm3 RBC 3.01 L (3.65-5.03) M/mm3 Hgb 7.3 L (10.1-14.3) gm/dl Hct 23.9 L (30.3-42.9) % Plt Count 454 H (140-440) K/mm3 Comprehensive Metabolic Panel 10/22/21 Range/Units 04:30 Sodium 145 (137-145) mmol/L Potassium 5.1 H (3.6-5.0) mmol/L Chloride 111.7 H (98-107) mmol/L Carbon Dioxide 24 (22-30) mmol/L BUN 41 H (7-17) mg/dL Creatinine 0.9 (0.6-1.2) mg/dL Glucose 203 H (65-100) mg/dL Calcium 8.9 (8.4-10.2) mg/dL AST 18 (5-40) units/L ALT 5 L (7-56) units/L Alkaline Phosphatase 69 (35-129) units/L Total Protein 6.2 L (6.3-8.2) g/dL Albumin 2.5 L (3.9-5) g/dL Pacemaker: ventricular pacing w/capt - Allied health notes Allied health notes reviewed: nursing
[2021-10-22] MEDS: ZINC SULFATE 220 MG CAP PO SCH ×2 (09:50→21:08)
[2021-10-22] MEDS: ARFORMOTEROL 15 MCG/2 ML NEBU IH SCH ×2 (10:39→19:50)
[2021-10-22] MEDS: BUDESONIDE 0.5 MG/2 ML NEBU IH SCH ×2 (10:41→19:50)
--- NOTE | 2021-10-22 11:57 | Progress Note ---
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 A/P: Neuro: Sedated, h/o CVA, Alzheimer's, nonverbal at baseline, seizure disorder -Avoid delirium -Reorientation as needed -Continue home Keppra -Sedated with propofol -RASS goal 0 to -1 -Aspiration/seizure precautions -As needed analgesia -Maintain sleep-wake cycle Cardiac: Hypotension, h/o HTN, CHF, pacemaker placement -Blood pressure monitoring per protocol -s/p vasopressor support with Levophed -Cardiology consulted, appreciate recommendations -Echocardiogram LVEF 45 to 50%, RVSP 45-50 mmHg, moderate left ventricular hypertrophy, trace to small anterior pericardial effusion no tamponade -Hold home antihypertensive regimen at this time -Admit proBNP 6606 -s/p IV Lasix Respiratory: Acute hypoxic respiratory failure -CCM consulted, appreciate recommendations -Intubated on 10/15 with 7 oett at 23 at the lips -A.m. vent settings: Assist-control rate 16, tidal volume 400, PEEP 10, FiO2 40% -See RT notes for titration -PSV today -VAP bundle -SPO2 monitoring GI: Protein calorie malnutrition -24 hours + 450 ml -PEG tube in place -PPI -NTR consult for tube feedings -BR: Senokot -BM 10/21 : Hyperkalemia -Strict intake and output -Renally dose medications -Avoid nephrotoxic medications -Daily weights -Trend BMP -Kionax today ID: Severe Sepsis with Shock (POA), COVID 19 PNA, Lactic acidosis, possible aspiration PNA, Staph aureus tracheal aspirate -CXR showed B PNA -CT chest showed B consolidation (left greater than right) -Infectious disease consulted, appreciate recommendations -Antibiotic therapy per ID -Procalcitonin 39.5, CRP 26.9 -Droplet/contact precautions -Trend COVID-19 inflammatory markers -Vitamin D/vitamin C/zinc -Dexamethasone 6 mg daily (10/16-10/26) -Remdisivir (10/16-10/21) -Monitor WBC and temperature curve -10/15 Tracheal aspirate with Staph aureus -Vancomycin discontinued, Ancef initiated 10/20 -f/u MRSA PCR Endo: h/o DM -Avoid hypoglycemia -Lantus, titrate as needed -SSI, high-dose -Accu-Cheks q. 6 Heme: Leukocytosis, acute bilateral common femoral DVT, iron deficiency anemia, thrombocytosis -heme-onc consulted, appreciate recommendations -recommends lovenox -S/p iron IV -CTA chest without PE -Home Xarelto switched to heparin gtt -Bilateral lower extremities doppler ultrasound shows acute bilateral common femoral DVT -Trend CBC -SCDs while in bed -Transfuse hemoglobin less than 7 The high probability of a clinically significant, sudden or life threatening deterioration of the [multi] system(s) required my full and direct attention, intervention and personal management. The aggregate critical care time was [60] minutes. This time is in addition to time spent performing reported procedures but includes the following: [x] Data Review and interpretation [x] Patient assessment and monitoring of vital signs [x] Documentation [x] Medication orders and management Disposition Plan: icu Total Time Spent with Patient (Minutes): 60 History Interval history: This is a 86-year-old female with HTN, CVA (2019), DM, seizure disorder, right lower leg DVT (on Xarelto), nonverbal at baseline, Alzheimer, CHF with pacemaker in situ who presented to the emergency department via EMS for severe respiratory distress with hypoxia. Upon arrival EMS patient was found to be in in respiratory distress and with altered mental status with SPO2 of 70% on room air. She was placed on BiPAP and transferred to the emergency department. In the emergency department patient was intubated for airway protection and increasing oxygen demands. Work-up in the emergency department included a CXR which showed possible aspiration pneumonia, leukocytosis, elevated proBNP, elevated CRP, elevated dddimer, lactic acidosis, hypomagnesemia, hyponatremia and elevated proBNP. Patient was admitted to the hospitalist service with CHF exacerbation, acute hypoxic respiratory failure, possible aspiration pneumonia and is a COVID-19 PUI with consults to [facility] cardiology and infectious disease. 10/16: Patient COVID-19 PCR positive, given IVF, CVP measuring initiated, weaning levophed as tolerated. Started on remdesivir/vit c/vit d/ zinc. 10/17: Acute DVT noted in bilateral common femoral vein patient started on heparin drip, magnesium and potassium repleted, vent changes per [facility]. Started r emdesivir yesterday. 10/18: Remains off Levophed, given 500 mL bolus of normal saline. Increase Leo tus. Permissive hypercapnia per [facility]. 10/19: Hematology/oncology consulted due to acute on chronic DVT, remains on remdesivir/steroids/vancomycin and cefepime. Tracheal aspirate grew Staph aureus. Levophed remains off. BP and UOP improved after NS bolus yesterday 10/20: MRSA PCR negative, vancomycin discontinued and started on Ancef. heme/onc plans to discontinue heparin gtt and initiation of Lovenox. 10/21: Patient had desaturation x3 even after lavage with RT. Stat CXR ordered. Patient is anemic today and 1 unit of PRBC was ordered. However consent for blood transfusion was declined by son. Risk and benefits explained by RN and [employer] for greater than 45 minutes total. 10/20: minimal vent setting, PSV today. given Kayexalate. Called Fan to give him an update but call sent to [facility], voice message left requesting a call back to hospitalist office at [phone] Hospitalist Physical - Physical exam Narrative exam: General appearance: Present: other (Patient is sedated, on the ventilator) - EENT Eyes: Present: PERRL, EOM intact ENT: dentition normal - Neck Neck: Present: normal ROM - Respiratory Respiratory effort: normal Respiratory: bilateral: diminished - Cardiovascular Rhythm: regular Heart Sounds: Present: S1 & S2. Absent: systolic murmur, diastolic murmur - Extremities Extremities: no ischemia, pulses intact, pulses symmetrical, No edema, normal temperature, normal color Peripheral Pulses: within normal limits - Abdominal General gastrointestinal: soft, non-tender, non-distended, normal bowel sounds - Integumentary Integumentary: Present: warm, dry - Psychiatric Psychiatric: cooperative - Neurologic Neurologic: CNII-XII intact, moves all extremities - Allied Health Allied health notes reviewed: nursing, RT, social work - Constitutional Vitals: Temp Pulse Resp BP Pulse Ox 97.2 F L 83 19 99/53 98 10/22/21 08:00 10/22/21 10:35 10/22/21 10:35 10/22/21 09:40 10/22/21 09:40 General appearance: Present: other (Patient is sedated, on the ventilator) HEART Score - HEART Score Age: > 65 Risk factors: 1-2 risk factors Troponin: Troponin T 0.015 ng/mL (0.00-0.029) 10/18/21 11:30 Troponin: 1-3x normal limit - Critical Actions Critical Actions: 4-6 pts:12-16.6% risk of adverse cardiac event. Should be admitted Results - Labs CBC & Chem 7: 10/22/21 04:30 10/22/21 04:30 Labs: Laboratory Last Values WBC 21.5 K/mm3 (4.5-11.0) H 10/22/21 04:30 RBC 3.01 M/mm3 (3.65-5.03) L 10/22/21 04:30 Hgb 7.3 gm/dl (10.1-14.3) L 10/22/21 04:30 Hct 23.9 % (30.3-42.9) L 10/22/21 04:30 MCV 79 fl (79-97) 10/22/21 04:30 MCH 24 pg (28-32) L 10/22/21 04:30 MCHC 30 % (30-34) 10/22/21 04:30 RDW 18.7 % (13.2-15.2) H 10/22/21 04:30 Plt Count 454 K/mm3 (140-440) H 10/22/21 04:30 Add Manual Diff Complete 10/20/21 05:00 Total Counted 100 10/20/21 05:00 Seg Neutrophils % Day Light Relief Operator 10/17/21 06:02 Seg Neuts % (Manual) 85.0 % (40.0-70.0) H 10/20/21 05:00 Band Neutrophils % 5.0 % 10/20/21 05:00 Lymphocytes % (Manual) 6.0 % (13.4-35.0) L 10/20/21 05:00 Reactive Lymphs % (Man) 0 % 10/20/21 05:00 Monocytes % (Manual) 3.0 % (0.0-7.3) 10/20/21 05:00 Eosinophils % (Manual) 0 % (0.0-4.3) 10/20/21 05:00 Basophils % (Manual) 0 % (0.0-1.8) 10/20/21 05:00 Metamyelocytes % 1.0 % 10/20/21 05:00 Myelocytes % 0 % 10/20/21 05:00 Promyelocytes % 0 % 10/20/21 05:00 Blast Cells % 0 % 10/20/21 05:00 Nucleated RBC % 1.0 % (0.0-0.9) H 10/20/21 05:00 Seg Neutrophils # Man 13.8 K/mm3 (1.8-7.7) H 10/20/21 05:00 Band Neutrophils # 0.8 K/mm3 10/20/21 05:00 Lymphocytes # (Manual) 1.0 K/mm3 (1.2-5.4) L 10/20/21 05:00 Abs React Lymphs (Man) 0.0 K/mm3 10/20/21 05:00 Monocytes # (Manual) 0.5 K/mm3 (0.0-0.8) 10/20/21 05:00 Eosinophils # (Manual) 0.0 K/mm3 (0.0-0.4) 10/20/21 05:00 Basophils # (Manual) 0.0 K/mm3 (0.0-0.1) 10/20/21 05:00 Metamyelocytes # 0.2 K/mm3 10/20/21 05:00 Myelocytes # 0.0 K/mm3 10/20/21 05:00 Promyelocytes # 0.0 K/mm3 10/20/21 05:00 Blast Cells # 0.0 K/mm3 10/20/21 05:00 WBC Morphology Not Reportable 10/20/21 05:00 Hypersegmented Neuts Not Reportable 10/20/21 05:00 Hyposegmented Neuts Not Reportable 10/20/21 05:00 Hypogranular Neuts Not Reportable 10/20/21 05:00 Smudge Cells Not Reportable 10/20/21 05:00 Toxic Granulation Not Reportable 10/20/21 05:00 Toxic Vacuolation Not Reportable 10/20/21 05:00 Dohle Bodies Not Reportable 10/20/21 05:00 Pelger-Huet Anomaly Not Reportable 10/20/21 05:00 Girma Rods Not Reportable 10/20/21 05:00 Platelet Estimate Consistent w auto 10/20/21 05:00 Clumped Platelets Rare 10/20/21 05:00 Plt Clumps, EDTA Not Reportable 10/20/21 05:00 Large Platelets Not Reportable 10/20/21 05:00 Giant Platelets Not Reportable 10/20/21 05:00 Platelet Satelliting Not Reportable 10/20/21 05:00 Plt Morphology Comment Not Reportable 10/20/21 05:00 RBC Morphology Not Reportable 10/20/21 05:00 Dimorphic RBCs Not Reportable 10/20/21 05:00 Polychromasia Not Reportable 10/20/21 05:00 Hypochromasia 1+ 10/20/21 05:00 Poikilocytosis Not Reportable 10/20/21 05:00 Anisocytosis Not Reportable 10/20/21 05:00 Microcytosis Not Reportable 10/20/21 05:00 Macrocytosis Not Reportable 10/20/21 05:00 Spherocytes Not Reportable 10/20/21 05:00 Pappenheimer Bodies Not Reportable 10/20/21 05:00 Sickle Cells Not Reportable 10/20/21 05:00 Target Cells Few 10/20/21 05:00 Tear Drop Cells Few 10/20/21 05:00 Ovalocytes Not Reportable 10/20/21 05:00 Helmet Cells Not Reportable 10/20/21 05:00 Vaz-Reed Bodies Not Reportable 10/20/21 05:00 Empire Rings Not Reportable 10/20/21 05:00 Lucius Cells Not Reportable 10/20/21 05:00 Bite Cells Not Reportable 10/20/21 05:00 Crenated Cell Not Reportable 10/20/21 05:00 Elliptocytes Not Reportable 10/20/21 05:00 Acanthocytes (Spur) Not Reportable 10/20/21 05:00 Rouleaux Not Reportable 10/20/21 05:00 Hemoglobin C Crystals Not Reportable 10/20/21 05:00 Schistocytes Not Reportable 10/20/21 05:00 Malaria parasites Not Reportable 10/20/21 05:00 Brodie Bodies Not Reportable 10/20/21 05:00 Hem Pathologist Commnt No 10/20/21 05:00 PT 16.3 Sec. (12.2-14.9) H 10/20/21 18:05 INR 1.18 (0.87-1.13) H 10/20/21 18:05 APTT 38.0 Sec. (24.2-36.6) H 10/15/21 16:15 Fibrinogen 803 mg/dl (211-480) H 10/20/21 04:25 D-Dimer 1817.20 ng/mlDDU (0-234) H 10/20/21 04:25 Heparin Anti-Xa Level 0.75 U.I./ml (0.3-0.7) H 10/22/21 04:30 ABG pH 7.336 pH Units (7.350-7.450) L 10/21/21 18:45 POC ABG pCO2 48.1 mmHg (32.0-48.0) H 10/18/21 09:00 ABG pCO2 49.3 mm Hg 10/21/21 18:45 POC ABG pO2 103.0 mmHg (83-108) 10/18/21 09:00 ABG pO2 83.5 mm Hg (80.0-90.0) 10/21/21 18:45 POC ABG HCO3 22.2 10/18/21 09:00 ABG HCO3 25.8 mmol/L (20.0-26.0) 10/21/21 18:45 ABG O2 Saturation 96.0 % (95.0-99.0) 10/21/21 18:45 ABG O2 Content 10.2 (0.0-44) 10/21/21 18:45 POC ABG Base Excess -4.3 10/18/21 09:00 ABG Base Excess -0.2 mmol/L (-2.0-3.0) 10/21/21 18:45 ABG Hemoglobin 7.6 gm/dl (12.0-16.0) L 10/21/21 18:45 ABG Oxyhemoglobin 95.4 (94-98) 10/18/21 09:00 ABG Carboxyhemoglobin 1.1 % (0.0-5.0) 10/21/21 18:45 ABG Methemoglobin 0.4 % (0.0-1.5) 10/21/21 18:45 ABG Sodium 136.8 mmol/L (136.0-145.0) 10/18/21 09:00 ABG Potassium 4.0 mmol/L (3.40-4.50) 10/18/21 09:00 ABG Chloride 104.0 mmol/L (98-107) 10/18/21 09:00 ABG Glucose 252 mg/dL (65-95) H 10/18/21 09:00 Oxyhemoglobin 94.6 % (95.0-99.0) L 10/21/21 18:45 Carboxyhemoglobin 1.3 (0.5-1.5) 10/18/21 09:00 FiO2 35 % 10/21/21 18:45 FiO2 % 50 10/18/21 09:00 Sodium 145 mmol/L (137-145) 10/22/21 04:30 Potassium 5.1 mmol/L (3.6-5.0) H 10/22/21 04:30 Chloride 111.7 mmol/L (98-107) H 10/22/21 04:30 Carbon Dioxide 24 mmol/L (22-30) 10/22/21 04:30 Anion Gap 14 mmol/L 10/22/21 04:30 BUN 41 mg/dL (7-17) H 10/22/21 04:30 Creatinine 0.9 mg/dL (0.6-1.2) 10/22/21 04:30 Estimated GFR > 60 ml/min 10/22/21 04:30 BUN/Creatinine Ratio 46 % 10/22/21 04:30 Glucose 203 mg/dL (65-100) H 10/22/21 04:30 POC Glucose 139 mg/dL (70-105) H 10/22/21 11:41 Lactic Acid 1.20 mmol/L (0.7-2.0) 10/17/21 06:02 Calcium 8.9 mg/dL (8.4-10.2) 10/22/21 04:30 Phosphorus 3.80 mg/dL (2.5-4.5) D 10/17/21 06:02 Magnesium 2.60 mg/dL (1.7-2.3) H 10/18/21 04:40 Iron 14 ug/dL (37-170) L 10/20/21 05:00 TIBC 138 mcg/dL (250-450) L 10/20/21 05:00 Ferritin 383.0 ng/mL (10.0-200.0) H 10/19/21 02:40 Total Bilirubin 0.20 mg/dL (0.1-1.2) 10/22/21 04:30 Direct Bilirubin 0.3 mg/dL (0-0.2) H 10/17/21 06:02 Indirect Bilirubin 0.1 mg/dL 10/17/21 06:02 AST 18 units/L (5-40) 10/22/21 04:30 ALT 5 units/L (7-56) L 10/22/21 04:30 Alkaline Phosphatase 69 units/L (35-129) 10/22/21 04:30 Ammonia 38.0 umol/L (25-60) 10/15/21 16:15 Lactate Dehydrogenase 223 units/L (91-180) H 10/19/21 02:40 Troponin T 0.015 ng/mL (0.00-0.029) 10/18/21 11:30 C-Reactive Protein 9.30 mg/dL (0.00-1.30) H 10/19/21 02:40 NT-Pro-B Natriuret Pep 6606 pg/mL (0-900) H 10/15/21 16:15 Total Protein 6.2 g/dL (6.3-8.2) L 10/22/21 04:30 Albumin 2.5 g/dL (3.9-5) L 10/22/21 04:30 Albumin/Globulin Ratio 0.7 % 10/22/21 04:30 Triglycerides 82 mg/dL (2-149) 10/19/21 02:40 Cholesterol 99 mg/dL (50-199) 10/15/21 18:00 LDL Cholesterol Direct 46 mg/dL (50-130) L 10/15/21 18:00 HDL Cholesterol 25 mg/dL (40-59) L 10/15/21 18:00 Cholesterol/HDL Ratio 3.96 % 10/15/21 18:00 Lipase 19 units/L (13-60) 10/15/21 16:15 Procalcitonin 39.51 ng/mL (<0.15) 10/16/21 23:31 Arterial Blood Glucose 252 mg/dL (65-95) H 10/18/21 09:00 Arterial Blood Ionized Calcium 4.7 mg/dL (4.6-5.3) 10/18/21 09:00 Urine Color Yellow (Yellow) 10/15/21 Unknown Urine Turbidity Cloudy (Clear) 10/15/21 Unknown Urine pH 5.0 (5.0-7.0) 10/15/21 Unknown Ur Specific Girard 1.016 (1.003-1.030) 10/15/21 Unknown Urine Protein >500 mg/dL (Negative) 10/15/21 Unknown Urine Glucose (UA) 50 mg/dL (Negative) 10/15/21 Unknown Urine Ketones Neg mg/dL (Negative) 10/15/21 Unknown Urine Blood Neg (Negative) 10/15/21 Unknown Urine Nitrite Neg (Negative) 10/15/21 Unknown Urine Bilirubin Neg (Negative) 10/15/21 Unknown Urine Urobilinogen < 2.0 mg/dL (<2.0) 10/15/21 Unknown Ur Leukocyte Esterase Neg (Negative) 10/15/21 Unknown Urine WBC (Auto) 5.0 /HPF (0.0-6.0) 10/15/21 Unknown Urine RBC (Auto) 2.0 /HPF (0.0-6.0) 10/15/21 Unknown U Epithel Cells (Auto) 2.0 /HPF (0-13.0) 10/15/21 Unknown Urine Bacteria (Auto) 1+ /HPF (Negative) 10/15/21 Unknown Calcium Oxalate Crystal 1+ 10/15/21 Unknown Amorphous Crystals 3+ 10/15/21 Unknown Urine Mucus Few /HPF 10/15/21 Unknown Urine Yeast (Budding) 1+ /HPF 10/15/21 Unknown Nasal Screen MRSA (PCR) Negative (Negative) 10/18/21 13:25 Salicylates < 0.3 mg/dL (2.8-20.0) L 10/15/21 16:15 Urine Opiates Screen Negative 10/15/21 Unknown Urine Methadone Screen Negative 10/15/21 Unknown Acetaminophen 5.0 ug/mL (10.0-30.0) L 10/15/21 16:15 Ur Barbiturates Screen Negative 10/15/21 Unknown Ur Phencyclidine Scrn Negative 10/15/21 Unknown Ur Amphetamines Screen Negative 10/15/21 Unknown U Benzodiazepines Scrn Negative 10/15/21 Unknown Urine Cocaine Screen Negative 10/15/21 Unknown U Marijuana (THC) Screen Negative 10/15/21 Unknown Drugs of Abuse Note Disclamer 10/15/21 Unknown Coronavirus (PCR) Positive (Negative) A 10/16/21 09:36 Blood Type A POSITIVE 10/21/21 08:35 Antibody Screen Negative 10/21/21 08:35 Crossmatch See Detail 10/21/21 08:35 Microbiology: Microbiology 10/15/21 16:35 Tracheal Aspirate Sputum Culture - Final Staphylococcus Aureus Magallanes/IV: Voiding Method External Female Catheter Active Medications - Current Medications Current Medications: Generic Name Dose Route Start Last Admin Trade Name Freq PRN Reason Stop Dose Admin Acetaminophen 650 mg 10/16/21 00:57 10/16/21 21:51 Acetaminophen 325 Mg Tab PO 650 mg Q4H PRN Administration Pain MILD(1-3)/Fever >100.5/KEYS Lipase/Protease/Amylase 1 each 10/16/21 01:07 Lipase 10,500/Protease 25,000/Amylase 43,750 (Units) Dr Schuler FEEDTUBE PRN PRN For Clogged Feeding Tube Arformoterol Tartrate 15 mcg 10/21/21 20:00 10/22/21 10:39 Arformoterol 15 Mcg/2 Ml Nebu IH 15 mcg Q12HRT MUNA Administration Ascorbic Acid 500 mg 10/17/21 10:00 10/21/21 09:57 Ascorbic Acid 500 Mg Tab PO 500 mg QDAY MUNA Administration Budesonide 0.5 mg 10/21/21 20:00 10/22/21 10:41 Budesonide 0.5 Mg/2 Ml Nebu IH 0.5 mg Q12HRT MUNA Administration Cholecalciferol 5,000 unit 10/17/21 10:00 10/21/21 09:57 Cholecalciferol (Vit D3) 5,000 Unit Tab PO 5,000 unit DAILY MUNA Administration Dexamethasone 8 mg 10/16/21 20:00 10/21/21 09:57 Dexamethasone 4 Mg Tab FEEDTUBE 10/25/21 10:01 8 mg QDAY MUNA Administration Famotidine 20 mg 10/17/21 22:00 10/21/21 22:11 Famotidine 20 Mg Tab FEEDTUBE 20 mg BID MUNA Administration Fentanyl 50 mcg 10/20/21 11:42 Fentanyl 100 Mcg/2 Ml Inj IV Q10MIN PRN ANALGESIA Heparin Sodium (Porcine) 2,000 unit 10/17/21 14:00 Heparin 10,000 Units/10 Ml Vial IV Q6H PRN Anti-Xa Assay < 0.1 units/ml Propofol 1,000 mg in 100 mls @ 1.633 mls/hr 10/15/21 16:00 10/20/21 19:22 Diprivan 10 Mg/Ml IV 0 mcg/kg/min TITR MUNA 0 mls/hr Titration Protocol 5 MCG/KG/MIN NORepinephrine/NS 8 MG-250 ML 8 mg in 250 mls @ 3.75 mls/hr 10/15/21 18:00 10/17/21 03:13 Norepinephrine/Ns 8 Mg-250 Ml (Double Conc) IV 1 mcg/min TITRATE MUNA 1.875 mls/hr Administration Protocol 2 MCG/MIN Heparin Sodium/Sodium Chloride 25,000 unit in 500 mls @ 16 mls/hr 10/17/21 14:00 10/22/21 06:10 Heparin/ 0.45% Nacl-25,000 Unit/500 Ml IV 1,000 units/hr TITR MUNA 20 mls/hr Titration Protocol 800 UNITS/HR Fentanyl Citrate 2,000 mcg in 100 mls @ 2.75 mls/hr 10/20/21 12:00 10/21/21 14:44 Fentanyl Drip Premix IV 1 mcg/kg/hr TITR MUNA 2.75 mls/hr Administration Protocol 1 MCG/KG/HR Cefazolin Sodium 2 gm/ Sodium 100 mls @ 200 mls/hr 10/20/21 14:15 10/22/21 01:31 Chloride IV 10/25/21 02:44 200 mls/hr Q12H [facility] Administration Protocol Insulin Glargine 15 units 10/18/21 22:00 10/21/21 22:11 Insulin Glargine 100 Units/Ml SUB-Q 15 units QHS [facility] Administration Insulin Human Lispro 0 unit 10/16/21 09:00 10/22/21 06:08 Insulin Lispro 100 Unit/Ml SUB-Q 3 unit Q6HR [facility] Administration Protocol Levetiracetam 500 mg 10/16/21 11:00 10/21/21 22:11 Levetiracetam 500 Mg/5 Ml Oral Liqd PO 500 mg BID MUNA Administration Metoclopramide HCl 10 mg 10/16/21 01:02 Metoclopramide 10 Mg/2 Ml Inj IV Q6H PRN Nausea And Vomiting Ondansetron HCl 4 mg 10/16/21 00:57 Ondansetron 4 Mg/2 Ml Inj IV Q3H PRN Nausea And Vomiting Senna/Docusate Sodium 1 tab 10/16/21 22:00 10/21/21 22:11 Sennosides/Docusate Sodium 8.6/50 Mg Tab FEEDTUBE 1 tab QHS MUNA Administration Simple Syrup 15 ml 10/16/21 01:07 Simple Syrup 15 Ml FEEDTUBE PRN PRN Hypoglycemia Simple Syrup 30 ml 10/16/21 01:07 Simple Syrup 15 Ml FEEDTUBE PRN PRN Hypoglycemia Sodium Bicarbonate 325 mg 10/16/21 01:07 Sodium Bicarbonate 325 Mg Tab FEEDTUBE PRN PRN For Clogged Feeding Tube Sodium Chloride 10 ml 10/16/21 01:00 10/21/21 22:11 Sodium Chloride 0.9% 10 Ml Flush Syringe IV 10 ml BID MUNA Administration Sodium Chloride 10 ml 10/16/21 00:57 Sodium Chloride 0.9% 10 Ml Flush Syringe IV PRN PRN LINE FLUSH Sodium Chloride 5 ml 10/16/21 13:57 Sodium Chloride 0.9% 1000 Ml Iv Soln IV PRN PRN CVP Zinc Sulfate 220 mg 10/16/21 22:00 10/21/21 22:11 Zinc Sulfate 220 Mg Cap PO 220 mg BID MUNA Administration Nutrition/Malnutrition Assess - Dietary Evaluation Nutrition/Malnutrition Findings: Nutrition Notes Start: 10/16/21 10:33 Freq: Status: Active Protocol: Document 10/18/21 16:08 ANTIONE (Rec: 10/18/21 16:15 ANTIONE [id number]) Nutrition Notes Initial or Follow up Brief Note Current Diet TF-Promote @ 41 ml/hr (from L 10/16). Height 5 ft 5 in Weight 55 kg [place] Body Weight (kg) 56.81 BMI 20.1 Weight change and time frame No body weight change reported . Weight Status Appropriate Subjective/Other Information RD consult for routine F/U on TF tolerance. TF continues as prescribed, therefore, well tolerated. Percent of energy/protein needs met: Prescribed Promote @ 41 ml/hr provides for energy/protein needs (985 Kcal/62 g) during LOS, plus 43 Kcal from propofol. 100% Kcal; 93% AA. Current % PO Other Minimum of two criteria No #1 Nutrition Diagnosis Inadequate oral intake Diagnosis Progress(for reassessment Continues documentation) Nutrition Intervention Nutrition Support: Continue Promote @ 41 ml/hr. Flush: 30 ml water Q 4 hr, or as per MD. % RDI: 100% Kcal; 93% AA. Goal #1 Provide at least 75% of energy /protein needs through Enteral Feeding during LOS. Follow-Up By: 10/25/21 Additional Comments Continue monitoring TF tolerance and BM.
[2021-10-22 12:49] LABS: Band Neutrophils # (Manual) 0.6 K/mm3; Basophils % (Manual) 0 % (0.0-1.8); Eosinophils % (Manual) 0 % (0.0-4.3); Hypochromasia 1+; Myelocytes # (Manual) 1.3 K/mm3; Platelet Estimate Consistent w Auto; Target Cells Rare; Total Cells Counted 100
--- NOTE | 2021-10-22 17:05 | Progress Note ---
Assessment and Plan Acute hypoxemic respiratory failure on MVS Aspiration pneumonia Septic shock COVID-19 infection DVT CHF H/O CVA Adult FTT Leukocytosis Anemia that is microcytic Lactic acidosis Hypomagnesemia NSTEMI Oropharyngeal dysphagia Dementia - CXR reviewed and addressed, no large volume Atelectasis - get US left chest re: pleural effusion - continue care as below otherwise; - transitioned to Lovenox - continue daily SAT and SBT assessment as tolerated - continue Ancef; de-escalate per ID recommendations - wean Levophed for target MAP > 65 mmHg - continue to wean supplemental oxygen for target O2 sat's > 90% acutely - VAP bundle addressed - continue lung protective strategies - continue bronchodilators with pulmonary hygiene per RT - wean per pulmonary driven protocols otherwise - sedation prn for target RASS 0 to -1 - continue to avoid nephrotoxins, renally dose all medications - continue mobility protocols to prevent pressure ulcers - PT/OT as tolerated - Wound care per RN/WCT - continue accuchecks with glycemic control per SSI (While critically ill target blood glucose of 140-180 mg/dL; avoid hypoglycemia) - home oxygen evaluation at discharge - GI & VTE prophylaxis - Flu & pneumovax per protocol - continue other care per attending / other consultants - prn analgesia per pain score COVID SPECIFIC INTERVENTIONS - Remdesivir as per ID/Pulmonary developed protocols (Receiving) - Not as candidate for Actemra - continue systemic steroids for severe COVID-19 infection empirically (Dexamethasone) - follow repeat COVID tests results - zinc and vitamin C supplementation - Monitor inflammatory markers per facility protocol - ferritin, Ddimer, CRP - therapeutic anticoagulation per system Protocol based on d-dimer and clinical considerations (on IV Heparin re: DVT) - Contact and airborne isolation .... Re-evaluate in am & prn CONDITION: CRITICAL PROGNOSIS: GUARDED CODE STATUS: FULL CODE The high probability of a clinically significant, sudden or life-threatening det erioration of the [respiratory, cardiovascular, hematologic & neurologic] system(s) required my full and direct attention, intervention and personal management. The aggregate critical care time was [32] minutes without overlap. Time includes spent on; [x] Data Review and interpretation [x] Patient assessment and monitoring of vital signs [x] Documentation [x] Medication orders and management Subjective Date of service: 10/22/21 Principal diagnosis: AHRF; Pneumonia; Septic shock; COVID-19 infection; CHF; DVT; NSTEMI Interval history: Patient is seen today for: AHRF; Aspiration pneumonia; Septic shock; COVID-19 infection; CHF; DVT; NSTEMI Seen and examined at bedside; 24hour events reviewed; nursing and respiratory care staff consulted; no adverse overnight events reported to me; resting peacefully in bed; tolerated SBT today and resting on AC now; IV Heparin switched to Lovenox; no gross bleeding Objective Vital Signs - 12hr 10/22/21 10/22/21 10/22/21 05:15 05:30 05:45 Temperature Pulse Rate 80 80 80 Pulse Rate [ Anterior Bilateral Throughout] Pulse Rate [ From Monitor] Respiratory 17 16 16 Rate Respiratory Rate [Anterior Bilateral Throughout] Blood Pressure 123/66 118/63 121/62 O2 Sat by Pulse 98 99 96 Oximetry 10/22/21 10/22/21 10/22/21 06:00 06:15 06:31 Temperature Pulse Rate 80 80 80 Pulse Rate [ Anterior Bilateral Throughout] Pulse Rate [ From Monitor] Respiratory 15 12 16 Rate Respiratory Rate [Anterior Bilateral Throughout] Blood Pressure 131/71 139/79 115/53 O2 Sat by Pulse 93 100 98 Oximetry 10/22/21 10/22/21 10/22/21 06:45 07:00 07:15 Temperature Pulse Rate 80 80 80 Pulse Rate [ Anterior Bilateral Throughout] Pulse Rate [ From Monitor] Respiratory 16 16 16 Rate Respiratory Rate [Anterior Bilateral Throughout] Blood Pressure 99/53 95/50 86/44 O2 Sat by Pulse 98 99 98 Oximetry 10/22/21 10/22/21 10/22/21 07:30 07:45 08:00 Temperature 97.2 F L Pulse Rate 80 80 80 Pulse Rate [ Anterior Bilateral Throughout] Pulse Rate [ 80 From Monitor] Respiratory 16 16 16 Rate Respiratory Rate [Anterior Bilateral Throughout] Blood Pressure 80/43 84/43 80/41 O2 Sat by Pulse 99 99 97 Oximetry 10/22/21 10/22/21 10/22/21 08:15 08:30 08:45 Temperature Pulse Rate 80 80 80 Pulse Rate [ Anterior Bilateral Throughout] Pulse Rate [ From Monitor] Respiratory 16 16 16 Rate Respiratory Rate [Anterior Bilateral Throughout] Blood Pressure 109/58 81/40 80/43 O2 Sat by Pulse 100 100 100 Oximetry 10/22/21 10/22/21 10/22/21 09:00 09:15 09:30 Temperature Pulse Rate 80 80 80 Pulse Rate [ Anterior Bilateral Throughout] Pulse Rate [ From Monitor] Respiratory 16 16 16 Rate Respiratory Rate [Anterior Bilateral Throughout] Blood Pressure 77/40 98/51 77/42 O2 Sat by Pulse 100 100 Oximetry 10/22/21 10/22/21 10/22/21 09:40 09:45 10:00 Temperature Pulse Rate 80 80 80 Pulse Rate [ Anterior Bilateral Throughout] Pulse Rate [ From Monitor] Respiratory 16 17 Rate Respiratory Rate [Anterior Bilateral Throughout] Blood Pressure 99/53 77/45 165/85 O2 Sat by Pulse 98 100 99 Oximetry 10/22/21 10/22/21 10/22/21 10:15 10:30 10:35 Temperature Pulse Rate 80 80 Pulse Rate [ 83 Anterior Bilateral Throughout] Pulse Rate [ From Monitor] Respiratory 18 22 Rate Respiratory 19 Rate [Anterior Bilateral Throughout] Blood Pressure 130/74 201/101 O2 Sat by Pulse 95 Oximetry 10/22/21 10/22/21 10/22/21 10:45 11:00 11:15 Temperature Pulse Rate 80 80 80 Pulse Rate [ Anterior Bilateral Throughout] Pulse Rate [ From Monitor] Respiratory 19 22 18 Rate Respiratory Rate [Anterior Bilateral Throughout] Blood Pressure 131/68 124/66 112/60 O2 Sat by Pulse 92 90 91 Oximetry 10/22/21 10/22/21 10/22/21 11:30 11:45 12:00 Temperature Pulse Rate 79 80 80 Pulse Rate [ Anterior Bilateral Throughout] Pulse Rate [ 80 From Monitor] Respiratory 16 17 18 Rate Respiratory Rate [Anterior Bilateral Throughout] Blood Pressure 107/51 106/53 103/54 O2 Sat by Pulse 91 94 96 Oximetry 10/22/21 10/22/21 10/22/21 12:15 12:30 12:45 Temperature Pulse Rate 80 80 80 Pulse Rate [ Anterior Bilateral Throughout] Pulse Rate [ From Monitor] Respiratory 16 17 16 Rate Respiratory Rate [Anterior Bilateral Throughout] Blood Pressure 133/66 107/56 114/58 O2 Sat by Pulse 94 94 95 Oximetry 10/22/21 10/22/21 10/22/21 13:00 13:15 13:30 Temperature Pulse Rate 80 80 80 Pulse Rate [ Anterior Bilateral Throughout] Pulse Rate [ From Monitor] Respiratory 18 17 17 Rate Respiratory Rate [Anterior Bilateral Throughout] Blood Pressure 131/64 106/54 108/56 O2 Sat by Pulse 94 96 96 Oximetry 10/22/21 10/22/21 10/22/21 13:45 13:50 14:00 Temperature Pulse Rate 80 80 80 Pulse Rate [ Anterior Bilateral Throughout] Pulse Rate [ From Monitor] Respiratory 17 18 16 Rate Respiratory Rate [Anterior Bilateral Throughout] Blood Pressure 102/55 131/64 123/64 O2 Sat by Pulse 97 94 97 Oximetry 10/22/21 10/22/21 10/22/21 14:15 14:30 14:45 Temperature Pulse Rate 80 80 80 Pulse Rate [ Anterior Bilateral Throughout] Pulse Rate [ From Monitor] Respiratory 17 16 16 Rate Respiratory Rate [Anterior Bilateral Throughout] Blood Pressure 148/80 108/58 99/53 O2 Sat by Pulse 98 98 Oximetry 10/22/21 10/22/21 10/22/21 15:00 15:15 15:30 Temperature Pulse Rate 80 80 80 Pulse Rate [ Anterior Bilateral Throughout] Pulse Rate [ From Monitor] Respiratory 16 16 16 Rate Respiratory Rate [Anterior Bilateral Throughout] Blood Pressure 92/50 86/49 83/45 O2 Sat by Pulse 99 Oximetry 10/22/21 10/22/21 10/22/21 15:45 16:00 16:15 Temperature Pulse Rate 80 80 80 Pulse Rate [ Anterior Bilateral Throughout] Pulse Rate [ 80 From Monitor] Respiratory 16 17 14 Rate Respiratory Rate [Anterior Bilateral Throughout] Blood Pressure 83/44 75/42 135/69 O2 Sat by Pulse 99 100 84 Oximetry 10/22/21 16:30 Temperature Pulse Rate 80 Pulse Rate [ Anterior Bilateral Throughout] Pulse Rate [ From Monitor] Respiratory 17 Rate Respiratory Rate [Anterior Bilateral Throughout] Blood Pressure 85/51 O2 Sat by Pulse 95 Oximetry Constitutional: no acute distress, other (elderly and chronically ill looking female with mildly increased respiratory effort at rest) Eyes: non-icteric ENT: oropharynx moist, other (ETT 23 cm JESSICA) Neck: supple, no lymphadenopathy, no JVD Effort: mildly labored Ascultation: Bilateral: diminished breath sounds, rhonchi Percussion: Bilateral: not dull Cardiovascular: regular rate and rhythm Gastrointestinal: normoactive bowel sounds, soft, non-tender, non-distended, other (PEG tube) Integumentary: rash (xeroderma type) Neurologic: pupils equal and round, unable to assess Psychiatric: other (unable to assess re: AMS) CBC and BMP: 10/22/21 04:30 10/22/21 04:30 ABG, PT/INR, D-dimer: ABG ABG pH 7.336 pH Units (7.350-7.450) L 10/21/21 18:45 POC ABG pCO2 48.1 mmHg (32.0-48.0) H 10/18/21 09:00 ABG pCO2 49.3 mm Hg 10/21/21 18:45 POC ABG pO2 103.0 mmHg (83-108) 10/18/21 09:00 ABG pO2 83.5 mm Hg (80.0-90.0) 10/21/21 18:45 POC ABG HCO3 22.2 10/18/21 09:00 ABG O2 Saturation 96.0 % (95.0-99.0) 10/21/21 18:45 PT/INR, D-dimer PT 16.3 Sec. (12.2-14.9) H 10/20/21 18:05 INR 1.18 (0.87-1.13) H 10/20/21 18:05 D-Dimer 1817.20 ng/mlDDU (0-234) H 10/20/21 04:25 Abnormal lab findings: Abnormal Labs 10/15/21 10/15/21 10/15/21 16:15 16:15 16:15 WBC 17.2 H RBC Hgb 9.0 L Hct 29.7 L MCV 78 L MCH 24 L RDW 17.5 H Plt Count Seg Neuts % (Manual) 88.0 H Lymphocytes % (Manual) 3.0 L Nucleated RBC % Seg Neutrophils # Man 15.1 H Lymphocytes # (Manual) 0.5 L PT INR APTT 38.0 H Fibrinogen D-Dimer 7433.97 H Heparin Anti-Xa Level ABG pH POC ABG pCO2 ABG pO2 ABG HCO3 ABG O2 Saturation ABG Base Excess ABG Hemoglobin ABG Sodium ABG Chloride ABG Glucose Oxyhemoglobin Sodium Potassium Chloride Carbon Dioxide BUN Glucose POC Glucose Lactic Acid 5.60 H* Calcium Phosphorus Magnesium Iron TIBC Ferritin Direct Bilirubin ALT Lactate Dehydrogenase Troponin T C-Reactive Protein NT-Pro-B Natriuret Pep Total Protein Albumin LDL Cholesterol Direct HDL Cholesterol Arterial Blood Glucose Salicylates Acetaminophen Coronavirus (PCR) Crossmatch 10/15/21 10/15/21 10/15/21 16:15 16:15 16:15 WBC RBC Hgb Hct MCV MCH RDW Plt Count Seg Neuts % (Manual) Lymphocytes % (Manual) Nucleated RBC % Seg Neutrophils # Man Lymphocytes # (Manual) PT INR APTT Fibrinogen D-Dimer Heparin Anti-Xa Level ABG pH POC ABG pCO2 ABG pO2 ABG HCO3 ABG O2 Saturation ABG Base Excess ABG Hemoglobin ABG Sodium ABG Chloride ABG Glucose Oxyhemoglobin Sodium 134 L Potassium Chloride 89.6 L Carbon Dioxide BUN 27 H Glucose 234 H POC Glucose Lactic Acid Calcium Phosphorus Magnesium 1.40 L Iron TIBC Ferritin Direct Bilirubin 0.3 H ALT Lactate Dehydrogenase Troponin T C-Reactive Protein NT-Pro-B Natriuret Pep 6606 H Total Protein 6.2 L Albumin 3.1 L LDL Cholesterol Direct HDL Cholesterol Arterial Blood Glucose Salicylates < 0.3 L Acetaminophen 5.0 L Coronavirus (PCR) Crossmatch 10/15/21 10/15/21 10/15/21 16:15 16:15 16:15 WBC RBC Hgb Hct MCV MCH RDW Plt Count Seg Neuts % (Manual) Lymphocytes % (Manual) Nucleated RBC % Seg Neutrophils # Man Lymphocytes # (Manual) PT INR APTT Fibrinogen D-Dimer Heparin Anti-Xa Level ABG pH POC ABG pCO2 ABG pO2 ABG HCO3 ABG O2 Saturation ABG Base Excess ABG Hemoglobin ABG Sodium ABG Chloride ABG Glucose Oxyhemoglobin Sodium Potassium Chloride Carbon Dioxide BUN Glucose 221 H POC Glucose Lactic Acid Calcium Phosphorus Magnesium Iron TIBC Ferritin 418.8 H 421.6 H Direct Bilirubin ALT Lactate Dehydrogenase 233 H Troponin T C-Reactive Protein 25.90 H NT-Pro-B Natriuret Pep Total Protein Albumin LDL Cholesterol Direct HDL Cholesterol Arterial Blood Glucose Salicylates Acetaminophen Coronavirus (PCR) Crossmatch 10/15/21 10/15/21 10/15/21 16:42 18:00 18:00 WBC RBC Hgb Hct MCV MCH RDW Plt Count Seg Neuts % (Manual) Lymphocytes % (Manual) Nucleated RBC % Seg Neutrophils # Man Lymphocytes # (Manual) PT INR APTT Fibrinogen D-Dimer Heparin Anti-Xa Level ABG pH 7.348 L POC ABG pCO2 ABG pO2 75.4 L ABG HCO3 30.6 H ABG O2 Saturation 94.3 L ABG Base Excess 3.9 H ABG Hemoglobin 10.9 L ABG Sodium ABG Chloride ABG Glucose Oxyhemoglobin 93.1 L Sodium Potassium Chloride Carbon Dioxide BUN Glucose POC Glucose Lactic Acid 3.10 H* Calcium Phosphorus Magnesium Iron TIBC Ferritin Direct Bilirubin ALT Lactate Dehydrogenase Troponin T 0.036 H C-Reactive Protein NT-Pro-B Natriuret Pep Total Protein Albumin LDL Cholesterol Direct 46 L HDL Cholesterol 25 L Arterial Blood Glucose Salicylates Acetaminophen Coronavirus (PCR) Crossmatch 10/15/21 10/16/21 10/16/21 20:58 01:55 04:50 WBC RBC Hgb Hct MCV MCH RDW Plt Count Seg Neuts % (Manual) Lymphocytes % (Manual) Nucleated RBC % Seg Neutrophils # Man Lymphocytes # (Manual) PT INR APTT Fibrinogen D-Dimer Heparin Anti-Xa Level ABG pH 7.490 H POC ABG pCO2 ABG pO2 ABG HCO3 ABG O2 Saturation ABG Base Excess ABG Hemoglobin 9.7 L ABG Sodium 128.9 L ABG Chloride 96.0 L ABG Glucose 235 H Oxyhemoglobin Sodium 135 L Potassium Chloride 94.9 L Carbon Dioxide BUN 28 H Glucose 226 H POC Glucose Lactic Acid Calcium Phosphorus Magnesium Iron TIBC Ferritin Direct Bilirubin ALT Lactate Dehydrogenase Troponin T 0.038 H C-Reactive Protein NT-Pro-B Natriuret Pep Total Protein Albumin LDL Cholesterol Direct HDL Cholesterol Arterial Blood Glucose 235 H Salicylates Acetaminophen Coronavirus (PCR) Crossmatch 10/16/21 10/16/21 10/16/21 09:05 09:05 09:05 WBC 14.9 H RBC 3.20 L Hgb 7.6 L Hct 24.8 L MCV 77 L MCH 24 L RDW 17.5 H Plt Count Seg Neuts % (Manual) Lymphocytes % (Manual) Nucleated RBC % Seg Neutrophils # Man Lymphocytes # (Manual) PT INR APTT Fibrinogen D-Dimer Heparin Anti-Xa Level ABG pH POC ABG pCO2 ABG pO2 ABG HCO3 ABG O2 Saturation ABG Base Excess ABG Hemoglobin ABG Sodium ABG Chloride ABG Glucose Oxyhemoglobin Sodium 132 L Potassium Chloride 93.2 L Carbon Dioxide BUN 28 H Glucose 225 H POC Glucose Lactic Acid 2.30 H* Calcium 8.3 L Phosphorus Magnesium 1.30 L Iron TIBC Ferritin Direct Bilirubin ALT Lactate Dehydrogenase Troponin T C-Reactive Protein NT-Pro-B Natriuret Pep Total Protein 5.7 L Albumin 2.4 L LDL Cholesterol Direct HDL Cholesterol Arterial Blood Glucose Salicylates Acetaminophen Coronavirus (PCR) Crossmatch 10/16/21 10/16/21 10/16/21 09:05 09:36 12:24 WBC RBC Hgb Hct MCV MCH RDW Plt Count Seg Neuts % (Manual) Lymphocytes % (Manual) Nucleated RBC % Seg Neutrophils # Man Lymphocytes # (Manual) PT INR APTT Fibrinogen D-Dimer Heparin Anti-Xa Level ABG pH POC ABG pCO2 ABG pO2 ABG HCO3 ABG O2 Saturation ABG Base Excess ABG Hemoglobin ABG Sodium ABG Chloride ABG Glucose Oxyhemoglobin Sodium Potassium Chloride Carbon Dioxide BUN Glucose POC Glucose 187 H Lactic Acid Calcium Phosphorus 2.10 L Magnesium Iron TIBC Ferritin Direct Bilirubin ALT Lactate Dehydrogenase Troponin T C-Reactive Protein NT-Pro-B Natriuret Pep Total Protein Albumin LDL Cholesterol Direct HDL Cholesterol Arterial Blood Glucose Salicylates Acetaminophen Coronavirus (PCR) Positive A Crossmatch 10/16/21 10/16/21 10/16/21 17:19 21:00 23:31 WBC RBC Hgb Hct MCV MCH RDW Plt Count Seg Neuts % (Manual) Lymphocytes % (Manual) Nucleated RBC % Seg Neutrophils # Man Lymphocytes # (Manual) PT INR APTT Fibrinogen D-Dimer Heparin Anti-Xa Level ABG pH POC ABG pCO2 ABG pO2 ABG HCO3 ABG O2 Saturation ABG Base Excess ABG Hemoglobin ABG Sodium ABG Chloride ABG Glucose Oxyhemoglobin Sodium Potassium Chloride Carbon Dioxide BUN Glucose POC Glucose 128 H 132 H Lactic Acid Calcium Phosphorus Magnesium Iron TIBC Ferritin Direct Bilirubin ALT Lactate Dehydrogenase 216 H Troponin T C-Reactive Protein 26.90 H NT-Pro-B Natriuret Pep Total Protein Albumin LDL Cholesterol Direct HDL Cholesterol Arterial Blood Glucose Salicylates Acetaminophen Coronavirus (PCR) Crossmatch 10/16/21 10/17/21 10/17/21 23:31 06:02 06:02 WBC 16.7 H RBC 3.16 L Hgb 7.6 L Hct 24.2 L MCV 77 L MCH 24 L RDW 17.7 H Plt Count Seg Neuts % (Manual) 95.0 H Lymphocytes % (Manual) 1.0 L Nucleated RBC % Seg Neutrophils # Man 15.9 H Lymphocytes # (Manual) 0.2 L PT INR APTT Fibrinogen D-Dimer Heparin Anti-Xa Level ABG pH POC ABG pCO2 ABG pO2 ABG HCO3 ABG O2 Saturation ABG Base Excess ABG Hemoglobin ABG Sodium ABG Chloride ABG Glucose Oxyhemoglobin Sodium Potassium Chloride Carbon Dioxide BUN 32 H Glucose 163 H POC Glucose Lactic Acid Calcium 7.8 L Phosphorus Magnesium Iron TIBC Ferritin 428.7 H Direct Bilirubin ALT Lactate Dehydrogenase Troponin T C-Reactive Protein NT-Pro-B Natriuret Pep Total Protein 5.7 L Albumin 2.3 L LDL Cholesterol Direct HDL Cholesterol Arterial Blood Glucose Salicylates Acetaminophen Coronavirus (PCR) Crossmatch 10/17/21 10/17/21 10/17/21 06:02 06:02 06:21 WBC RBC Hgb Hct MCV MCH RDW Plt Count Seg Neuts % (Manual) Lymphocytes % (Manual) Nucleated RBC % Seg Neutrophils # Man Lymphocytes # (Manual) PT INR APTT Fibrinogen D-Dimer Heparin Anti-Xa Level ABG pH POC ABG pCO2 ABG pO2 ABG HCO3 ABG O2 Saturation ABG Base Excess ABG Hemoglobin ABG Sodium ABG Chloride ABG Glucose Oxyhemoglobin Sodium Potassium 3.5 L Chloride Carbon Dioxide BUN 32 H Glucose 216 H POC Glucose 219 H Lactic Acid Calcium Phosphorus Magnesium 1.40 L Iron TIBC Ferritin Direct Bilirubin 0.3 H ALT Lactate Dehydrogenase 257 H Troponin T C-Reactive Protein 28.50 H NT-Pro-B Natriuret Pep Total Protein 5.8 L Albumin 2.3 L LDL Cholesterol Direct HDL Cholesterol Arterial Blood Glucose Salicylates Acetaminophen Coronavirus (PCR) Crossmatch 10/17/21 10/17/21 10/17/21 08:35 12:38 17:35 WBC RBC Hgb Hct MCV MCH RDW Plt Count Seg Neuts % (Manual) Lymphocytes % (Manual) Nucleated RBC % Seg Neutrophils # Man Lymphocytes # (Manual) PT INR APTT Fibrinogen D-Dimer Heparin Anti-Xa Level ABG pH POC ABG pCO2 ABG pO2 ABG HCO3 ABG O2 Saturation ABG Base Excess ABG Hemoglobin ABG Sodium ABG Chloride ABG Glucose Oxyhemoglobin Sodium Potassium Chloride Carbon Dioxide BUN Glucose POC Glucose 216 H 262 H 230 H Lactic Acid Calcium Phosphorus Magnesium Iron TIBC Ferritin Direct Bilirubin ALT Lactate Dehydrogenase Troponin T C-Reactive Protein NT-Pro-B Natriuret Pep Total Protein Albumin LDL Cholesterol Direct HDL Cholesterol Arterial Blood Glucose Salicylates Acetaminophen Coronavirus (PCR) Crossmatch 10/17/21 10/17/21 10/18/21 18:20 22:17 00:16 WBC RBC Hgb Hct MCV MCH RDW Plt Count Seg Neuts % (Manual) Lymphocytes % (Manual) Nucleated RBC % Seg Neutrophils # Man Lymphocytes # (Manual) PT INR APTT Fibrinogen D-Dimer Heparin Anti-Xa Level 0.24 L ABG pH POC ABG pCO2 ABG pO2 ABG HCO3 ABG O2 Saturation ABG Base Excess ABG Hemoglobin ABG Sodium ABG Chloride ABG Glucose Oxyhemoglobin Sodium Potassium Chloride Carbon Dioxide BUN Glucose POC Glucose 215 H 247 H Lactic Acid Calcium Phosphorus Magnesium Iron TIBC Ferritin Direct Bilirubin ALT Lactate Dehydrogenase Troponin T C-Reactive Protein NT-Pro-B Natriuret Pep Total Protein Albumin LDL Cholesterol Direct HDL Cholesterol Arterial Blood Glucose Salicylates Acetaminophen Coronavirus (PCR) Crossmatch 10/18/21 10/18/21 10/18/21 04:40 04:40 05:00 WBC RBC Hgb Hct MCV MCH RDW Plt Count Seg Neuts % (Manual) Lymphocytes % (Manual) Nucleated RBC % Seg Neutrophils # Man Lymphocytes # (Manual) PT INR APTT Fibrinogen D-Dimer 2424.98 H Heparin Anti-Xa Level ABG pH POC ABG pCO2 ABG pO2 ABG HCO3 ABG O2 Saturation ABG Base Excess ABG Hemoglobin ABG Sodium ABG Chloride ABG Glucose Oxyhemoglobin Sodium Potassium Chloride Carbon Dioxide BUN 44 H Glucose 286 H POC Glucose Lactic Acid Calcium 7.8 L Phosphorus Magnesium 2.60 H Iron TIBC Ferritin Direct Bilirubin ALT Lactate Dehydrogenase Troponin T C-Reactive Protein NT-Pro-B Natriuret Pep Total Protein 5.7 L Albumin 2.2 L LDL Cholesterol Direct HDL Cholesterol Arterial Blood Glucose Salicylates Acetaminophen Coronavirus (PCR) Crossmatch 10/18/21 10/18/21 10/18/21 05:16 05:39 07:29 WBC 16.4 H RBC 3.03 L Hgb 7.3 L Hct 23.5 L MCV 78 L MCH 24 L RDW 17.9 H Plt Count Seg Neuts % (Manual) Lymphocytes % (Manual) Nucleated RBC % Seg Neutrophils # Man Lymphocytes # (Manual) PT INR APTT Fibrinogen D-Dimer Heparin Anti-Xa Level ABG pH POC ABG pCO2 ABG pO2 ABG HCO3 ABG O2 Saturation ABG Base Excess ABG Hemoglobin ABG Sodium ABG Chloride ABG Glucose Oxyhemoglobin Sodium Potassium Chloride Carbon Dioxide BUN Glucose POC Glucose 281 H 274 H Lactic Acid Calcium Phosphorus Magnesium Iron TIBC Ferritin Direct Bilirubin ALT Lactate Dehydrogenase Troponin T C-Reactive Protein NT-Pro-B Natriuret Pep Total Protein Albumin LDL Cholesterol Direct HDL Cholesterol Arterial Blood Glucose Salicylates Acetaminophen Coronavirus (PCR) Crossmatch 10/18/21 10/18/21 10/18/21 09:00 11:27 11:30 WBC RBC Hgb Hct MCV MCH RDW Plt Count Seg Neuts % (Manual) Lymphocytes % (Manual) Nucleated RBC % Seg Neutrophils # Man Lymphocytes # (Manual) PT INR APTT Fibrinogen D-Dimer Heparin Anti-Xa Level 0.24 L ABG pH 7.282 L POC ABG pCO2 48.1 H ABG pO2 ABG HCO3 ABG O2 Saturation ABG Base Excess ABG Hemoglobin 7.6 L ABG Sodium ABG Chloride ABG Glucose 252 H Oxyhemoglobin Sodium Potassium Chloride Carbon Dioxide BUN Glucose POC Glucose 219 H Lactic Acid Calcium Phosphorus Magnesium Iron TIBC Ferritin Direct Bilirubin ALT Lactate Dehydrogenase Troponin T C-Reactive Protein NT-Pro-B Natriuret Pep Total Protein Albumin LDL Cholesterol Direct HDL Cholesterol Arterial Blood Glucose 252 H Salicylates Acetaminophen Coronavirus (PCR) Crossmatch 10/18/21 10/18/21 10/18/21 15:58 19:56 23:21 WBC RBC Hgb Hct MCV MCH RDW Plt Count Seg Neuts % (Manual) Lymphocytes % (Manual) Nucleated RBC % Seg Neutrophils # Man Lymphocytes # (Manual) PT INR APTT Fibrinogen D-Dimer Heparin Anti-Xa Level 0.22 L ABG pH POC ABG pCO2 ABG pO2 ABG HCO3 ABG O2 Saturation ABG Base Excess ABG Hemoglobin ABG Sodium ABG Chloride ABG Glucose Oxyhemoglobin Sodium Potassium Chloride Carbon Dioxide BUN Glucose POC Glucose 264 H 198 H Lactic Acid Calcium Phosphorus Magnesium Iron TIBC Ferritin Direct Bilirubin ALT Lactate Dehydrogenase Troponin T C-Reactive Protein NT-Pro-B Natriuret Pep Total Protein Albumin LDL Cholesterol Direct HDL Cholesterol Arterial Blood Glucose Salicylates Acetaminophen Coronavirus (PCR) Crossmatch 10/19/21 10/19/21 10/19/21 02:40 02:40 02:40 WBC RBC Hgb Hct MCV MCH RDW Plt Count Seg Neuts % (Manual) Lymphocytes % (Manual) Nucleated RBC % Seg Neutrophils # Man Lymphocytes # (Manual) PT INR APTT Fibrinogen D-Dimer Heparin Anti-Xa Level ABG pH POC ABG pCO2 ABG pO2 ABG HCO3 ABG O2 Saturation ABG Base Excess ABG Hemoglobin ABG Sodium ABG Chloride ABG Glucose Oxyhemoglobin Sodium Potassium Chloride Carbon Dioxide BUN 49 H Glucose 167 H POC Glucose Lactic Acid Calcium Phosphorus Magnesium Iron TIBC Ferritin 383.0 H Direct Bilirubin ALT Lactate Dehydrogenase 223 H Troponin T C-Reactive Protein 9.30 H NT-Pro-B Natriuret Pep Total Protein 6.2 L Albumin 2.5 L LDL Cholesterol Direct HDL Cholesterol Arterial Blood Glucose Salicylates Acetaminophen Coronavirus (PCR) Crossmatch 10/19/21 10/19/21 10/19/21 02:40 02:40 05:06 WBC 15.5 H RBC 3.13 L Hgb 7.5 L Hct 24.3 L MCV 77 L MCH 24 L RDW 17.8 H Plt Count Seg Neuts % (Manual) Lymphocytes % (Manual) Nucleated RBC % Seg Neutrophils # Man Lymphocytes # (Manual) PT INR APTT Fibrinogen D-Dimer Heparin Anti-Xa Level 0.17 L ABG pH POC ABG pCO2 ABG pO2 ABG HCO3 ABG O2 Saturation ABG Base Excess ABG Hemoglobin ABG Sodium ABG Chloride ABG Glucose Oxyhemoglobin Sodium Potassium Chloride Carbon Dioxide BUN Glucose POC Glucose 152 H Lactic Acid Calcium Phosphorus Magnesium Iron TIBC Ferritin Direct Bilirubin ALT Lactate Dehydrogenase Troponin T C-Reactive Protein NT-Pro-B Natriuret Pep Total Protein Albumin LDL Cholesterol Direct HDL Cholesterol Arterial Blood Glucose Salicylates Acetaminophen Coronavirus (PCR) Crossmatch 10/19/21 10/19/21 10/19/21 11:40 16:06 23:55 WBC RBC Hgb Hct MCV MCH RDW Plt Count Seg Neuts % (Manual) Lymphocytes % (Manual) Nucleated RBC % Seg Neutrophils # Man Lymphocytes # (Manual) PT INR APTT Fibrinogen D-Dimer Heparin Anti-Xa Level ABG pH POC ABG pCO2 ABG pO2 ABG HCO3 ABG O2 Saturation ABG Base Excess ABG Hemoglobin ABG Sodium ABG Chloride ABG Glucose Oxyhemoglobin Sodium Potassium Chloride Carbon Dioxide BUN Glucose POC Glucose 146 H 244 H 229 H Lactic Acid Calcium Phosphorus Magnesium Iron TIBC Ferritin Direct Bilirubin ALT Lactate Dehydrogenase Troponin T C-Reactive Protein NT-Pro-B Natriuret Pep Total Protein Albumin LDL Cholesterol Direct HDL Cholesterol Arterial Blood Glucose Salicylates Acetaminophen Coronavirus (PCR) Crossmatch 10/20/21 10/20/21 10/20/21 04:25 05:00 05:00 WBC 16.2 H RBC 3.04 L Hgb 7.3 L Hct 23.6 L MCV 78 L MCH 24 L RDW 18.0 H Plt Count Seg Neuts % (Manual) 85.0 H Lymphocytes % (Manual) 6.0 L Nucleated RBC % 1.0 H Seg Neutrophils # Man 13.8 H Lymphocytes # (Manual) 1.0 L PT INR APTT Fibrinogen 803 H D-Dimer 1817.20 H Heparin Anti-Xa Level ABG pH POC ABG pCO2 ABG pO2 ABG HCO3 ABG O2 Saturation ABG Base Excess ABG Hemoglobin ABG Sodium ABG Chloride ABG Glucose Oxyhemoglobin Sodium Potassium Chloride 108.5 H Carbon Dioxide 21 L BUN 49 H Glucose 186 H POC Glucose Lactic Acid Calcium Phosphorus Magnesium Iron 14 L TIBC 138 L Ferritin Direct Bilirubin ALT Lactate Dehydrogenase Troponin T C-Reactive Protein NT-Pro-B Natriuret Pep Total Protein 5.7 L Albumin 2.4 L LDL Cholesterol Direct HDL Cholesterol Arterial Blood Glucose Salicylates Acetaminophen Coronavirus (PCR) Crossmatch 10/20/21 10/20/21 10/20/21 05:11 10:45 12:14 WBC RBC Hgb Hct MCV MCH RDW Plt Count Seg Neuts % (Manual) Lymphocytes % (Manual) Nucleated RBC % Seg Neutrophils # Man Lymphocytes # (Manual) PT INR APTT Fibrinogen D-Dimer Heparin Anti-Xa Level 0.14 L ABG pH POC ABG pCO2 ABG pO2 ABG HCO3 ABG O2 Saturation ABG Base Excess ABG Hemoglobin ABG Sodium ABG Chloride ABG Glucose Oxyhemoglobin Sodium Potassium Chloride Carbon Dioxide BUN Glucose POC Glucose 181 H 192 H Lactic Acid Calcium Phosphorus Magnesium Iron TIBC Ferritin Direct Bilirubin ALT Lactate Dehydrogenase Troponin T C-Reactive Protein NT-Pro-B Natriuret Pep Total Protein Albumin LDL Cholesterol Direct HDL Cholesterol Arterial Blood Glucose Salicylates Acetaminophen Coronavirus (PCR) Crossmatch 10/20/21 10/20/21 10/20/21 13:45 17:16 18:05 WBC RBC Hgb Hct MCV MCH RDW Plt Count Seg Neuts % (Manual) Lymphocytes % (Manual) Nucleated RBC % Seg Neutrophils # Man Lymphocytes # (Manual) PT 16.3 H INR 1.18 H APTT Fibrinogen D-Dimer Heparin Anti-Xa Level ABG pH POC ABG pCO2 ABG pO2 ABG HCO3 ABG O2 Saturation ABG Base Excess ABG Hemoglobin 7.9 L ABG Sodium ABG Chloride ABG Glucose Oxyhemoglobin Sodium Potassium Chloride Carbon Dioxide BUN Glucose POC Glucose 182 H Lactic Acid Calcium Phosphorus Magnesium Iron TIBC Ferritin Direct Bilirubin ALT Lactate Dehydrogenase Troponin T C-Reactive Protein NT-Pro-B Natriuret Pep Total Protein Albumin LDL Cholesterol Direct HDL Cholesterol Arterial Blood Glucose Salicylates Acetaminophen Coronavirus (PCR) Crossmatch 10/21/21 10/21/21 10/21/21 00:23 04:53 04:53 WBC 18.6 H RBC 2.88 L Hgb 6.8 L Hct 22.1 L MCV 77 L MCH 24 L RDW 18.2 H Plt Count Seg Neuts % (Manual) Lymphocytes % (Manual) Nucleated RBC % Seg Neutrophils # Man Lymphocytes # (Manual) PT INR APTT Fibrinogen D-Dimer Heparin Anti-Xa Level ABG pH POC ABG pCO2 ABG pO2 ABG HCO3 ABG O2 Saturation ABG Base Excess ABG Hemoglobin ABG Sodium ABG Chloride ABG Glucose Oxyhemoglobin Sodium 146 H Potassium Chloride 113.0 H Carbon Dioxide BUN 42 H Glucose 165 H POC Glucose 188 H Lactic Acid Calcium Phosphorus Magnesium Iron TIBC Ferritin Direct Bilirubin ALT Lactate Dehydrogenase Troponin T C-Reactive Protein NT-Pro-B Natriuret Pep Total Protein Albumin LDL Cholesterol Direct HDL Cholesterol Arterial Blood Glucose Salicylates Acetaminophen Coronavirus (PCR) Crossmatch 10/21/21 10/21/21 10/21/21 05:19 08:35 11:43 WBC RBC Hgb Hct MCV MCH RDW Plt Count Seg Neuts % (Manual) Lymphocytes % (Manual) Nucleated RBC % Seg Neutrophils # Man Lymphocytes # (Manual) PT INR APTT Fibrinogen D-Dimer Heparin Anti-Xa Level ABG pH POC ABG pCO2 ABG pO2 ABG HCO3 ABG O2 Saturation ABG Base Excess ABG Hemoglobin ABG Sodium ABG Chloride ABG Glucose Oxyhemoglobin Sodium Potassium Chloride Carbon Dioxide BUN Glucose POC Glucose 160 H 126 H Lactic Acid Calcium Phosphorus Magnesium Iron TIBC Ferritin Direct Bilirubin ALT Lactate Dehydrogenase Troponin T C-Reactive Protein NT-Pro-B Natriuret Pep Total Protein Albumin LDL Cholesterol Direct HDL Cholesterol Arterial Blood Glucose Salicylates Acetaminophen Coronavirus (PCR) Crossmatch See Detail 10/21/21 10/21/21 10/21/21 17:33 18:45 23:50 WBC RBC Hgb Hct MCV MCH RDW Plt Count Seg Neuts % (Manual) Lymphocytes % (Manual) Nucleated RBC % Seg Neutrophils # Man Lymphocytes # (Manual) PT INR APTT Fibrinogen D-Dimer Heparin Anti-Xa Level ABG pH 7.336 L POC ABG pCO2 ABG pO2 ABG HCO3 ABG O2 Saturation ABG Base Excess ABG Hemoglobin 7.6 L ABG Sodium ABG Chloride ABG Glucose Oxyhemoglobin 94.6 L Sodium Potassium Chloride Carbon Dioxide BUN Glucose POC Glucose 163 H 198 H Lactic Acid Calcium Phosphorus Magnesium Iron TIBC Ferritin Direct Bilirubin ALT Lactate Dehydrogenase Troponin T C-Reactive Protein NT-Pro-B Natriuret Pep Total Protein Albumin LDL Cholesterol Direct HDL Cholesterol Arterial Blood Glucose Salicylates Acetaminophen Coronavirus (PCR) Crossmatch 10/22/21 10/22/21 10/22/21 04:30 04:30 04:30 WBC 21.5 H RBC 3.01 L Hgb 7.3 L Hct 23.9 L MCV MCH 24 L RDW 18.7 H Plt Count 454 H Seg Neuts % (Manual) 85.0 H Lymphocytes % (Manual) 3.0 L Nucleated RBC % Seg Neutrophils # Man 18.3 H Lymphocytes # (Manual) 0.6 L PT INR APTT Fibrinogen D-Dimer Heparin Anti-Xa Level 0.75 H ABG pH POC ABG pCO2 ABG pO2 ABG HCO3 ABG O2 Saturation ABG Base Excess ABG Hemoglobin ABG Sodium ABG Chloride ABG Glucose Oxyhemoglobin Sodium Potassium 5.1 H Chloride 111.7 H Carbon Dioxide BUN 41 H Glucose 203 H POC Glucose Lactic Acid Calcium Phosphorus Magnesium Iron TIBC Ferritin Direct Bilirubin ALT 5 L Lactate Dehydrogenase Troponin T C-Reactive Protein NT-Pro-B Natriuret Pep Total Protein 6.2 L Albumin 2.5 L LDL Cholesterol Direct HDL Cholesterol Arterial Blood Glucose Salicylates Acetaminophen Coronavirus (PCR) Crossmatch 10/22/21 10/22/21 05:12 11:41 WBC RBC Hgb Hct MCV MCH RDW Plt Count Seg Neuts % (Manual) Lymphocytes % (Manual) Nucleated RBC % Seg Neutrophils # Man Lymphocytes # (Manual) PT INR APTT Fibrinogen D-Dimer Heparin Anti-Xa Level ABG pH POC ABG pCO2 ABG pO2 ABG HCO3 ABG O2 Saturation ABG Base Excess ABG Hemoglobin ABG Sodium ABG Chloride ABG Glucose Oxyhemoglobin Sodium Potassium Chloride Carbon Dioxide BUN Glucose POC Glucose 189 H 139 H Lactic Acid Calcium Phosphorus Magnesium Iron TIBC Ferritin Direct Bilirubin ALT Lactate Dehydrogenase Troponin T C-Reactive Protein NT-Pro-B Natriuret Pep Total Protein Albumin LDL Cholesterol Direct HDL Cholesterol Arterial Blood Glucose Salicylates Acetaminophen Coronavirus (PCR) Crossmatch Chest x-ray: other (none today) Allied health notes reviewed: nursing
[2021-10-22] MEDS: SENNOSIDES/DOCUSATE SODIUM 8.6/50 MG TAB FEEDTUBE SCH (21:07)
[2021-10-22] MEDS: INSULIN GLARGINE 100 UNITS/ML SUB-Q SCH (21:08)
[2021-10-23] MEDS: INSULIN LISPRO 100 UNIT/ML SUB-Q SCH ×4 (00:02→17:59)
[2021-10-23 05:57] LABS: Hematocrit 24.7 % (30.3-42.9); Hemoglobin 7.6 gm/dl (10.1-14.3); Mean Corpuscular HGB Conc 31 % (30-34); Mean Corpuscular Volume 78 fl (79-97); Platelet Count 533 K/mm3 (140-440); Red Blood Count 3.18 M/mm3 (3.65-5.03); Red Cell Distribution Width 18.5 % (13.2-15.2)
[2021-10-23 06:21] LABS: BUN/Creatinine Ratio 48; Blood Urea Nitrogen 38 mg/dL (7-17); Calcium 9.2 mg/dL (8.4-10.2); Hemolysis Index 0
[2021-10-23] MEDS ORDERED: SODIUM POLYSTYRENE 15 GM/60 ML ORAL LIQD PO NR (08:03)
[2021-10-23] MEDS: levETIRAcetam 500 MG/5 ML ORAL LIQD PO SCH ×2 (09:08→21:02)
[2021-10-23] MEDS: CHOLECALCIFEROL (VIT D3) 5,000 UNIT TAB PO SCH (09:08)
[2021-10-23] MEDS: FAMOTIDINE 20 MG TAB FEEDTUBE SCH ×2 (09:08→21:02)
[2021-10-23] MEDS: ASCORBIC ACID 500 MG TAB PO SCH (09:08)
[2021-10-23] MEDS: DEXAMETHASONE 4 MG TAB FEEDTUBE SCH (09:08)
[2021-10-23] MEDS: ZINC SULFATE 220 MG CAP PO SCH ×2 (09:08→21:03)
[2021-10-23] MEDS: FREE WATER PO SCH ×4 (09:14→21:03)
[2021-10-23] MEDS ORDERED: ENOXAPARIN 40 MG/0.4 ML INJ SUB-Q SCH (10:00)
[2021-10-23] MEDS ORDERED: ENOXAPARIN 60 MG/0.6 ML INJ SUB-Q SCH (10:00)
[2021-10-23] MEDS: BUDESONIDE 0.5 MG/2 ML NEBU IH SCH (10:42)
[2021-10-23] MEDS: ARFORMOTEROL 15 MCG/2 ML NEBU IH SCH (10:43)
--- NOTE | 2021-10-23 11:41 | Progress Note ---
Assessment and Plan Acute hypoxemic respiratory failure on MVS h/o tracheotomy- decanulated Aspiration pneumonia Septic shock COVID-19 infection DVT CHF H/O CVA Adult FTT Leukocytosis Anemia that is microcytic Lactic acidosis Hypomagnesemia NSTEMI Oropharyngeal dysphagia-PEG in place Dementia Can discontinue CVL and place midline line Daily SAT and SBT assessment as tolerated - continue Cefazolin; de-escalate per ID recommendations - continue to wean supplemental oxygen for target O2 sat's > 90% acutely - VAP bundle addressed - continue lung protective strategies - continue bronchodilators with pulmonary hygiene per RT - wean per pulmonary driven protocols otherwise - continue to avoid nephrotoxins, renally dose all medications - continue mobility , off loading and frequent turning per facility protocol to prevent pressure ulcers - Wound care per RN/WCT -Enteric nutritional support via PEG - continue accuchecks with glycemic control per SSI (While critically ill target blood glucose of 140-180 mg/dL; avoid hypoglycemia) - GI & VTE prophylaxis- on Enoxaparin, was on Xarelto at home - Flu & pneumovax per protocol - continue other care per attending / other consultants - prn analgesia per pain score COVID SPECIFIC INTERVENTIONS - Remdesivir as per ID/Pulmonary developed protocols (Receiving) - Not as candidate for Actemra - continue systemic steroids for severe COVID-19 infection (Dexamethasone) - zinc and vitamin C supplementation - Monitor inflammatory markers per facility protocol - ferritin, Ddimer, CRP - therapeutic anticoagulation per system Protocol based on d-dimer and clinical considerations - Contact and airborne isolation per facility protocol CONDITION: CRITICAL PROGNOSIS: GUARDED CODE STATUS: FULL CODE The high probability of a clinically significant, sudden or life-threatening deterioration of the [respiratory, cardiovascular, hematologic and neurologic] system(s) required my full and direct attention, intervention and personal management. The aggregate critical care time was [35] minutes without overlap. Time includes spent on; [x] Data Review and interpretation [x] Patient assessment and monitoring of vital signs [x] Documentation [x] Medication orders and management Subjective Date of service: 10/23/21 Principal diagnosis: AHRF; Pneumonia; Septic shock; COVID-19 infection; CHF; DVT; NSTEMI Interval history: Patient is seen today for: AHRF; Aspiration pneumonia; Septic shock; COVID-19 infection; CHF; DVT; NSTEMI Seen and examined at bedside; 24hour events reviewed; nursing and respiratory care staff consulted; no adverse overnight events reported to me; resting peacefully in bed; tolerating SBT Psupp 20; on Lovenox; no gross bleeding; RUL atelectasis on CXR imaging done a few days ago. CXR done at the bedside and reviewed, the RUL is full expanded Objective Vital Signs - 12hr 10/22/21 10/22/21 10/23/21 23:45 23:52 00:00 Temperature 98.8 F Pulse Rate 80 80 80 Pulse Rate [ Anterior Bilateral Throughout] Pulse Rate [ Anterior Left Throughout] Pulse Rate [ 80 From Monitor] Respiratory 19 18 16 Rate Respiratory Rate [Anterior Bilateral Throughout] Respiratory Rate [Anterior Left Throughout ] Blood Pressure 109/61 109/61 93/53 O2 Sat by Pulse 100 100 100 Oximetry 10/23/21 10/23/21 10/23/21 00:15 00:30 00:45 Temperature Pulse Rate 80 80 80 Pulse Rate [ Anterior Bilateral Throughout] Pulse Rate [ Anterior Left Throughout] Pulse Rate [ From Monitor] Respiratory 18 20 18 Rate Respiratory Rate [Anterior Bilateral Throughout] Respiratory Rate [Anterior Left Throughout ] Blood Pressure 128/67 136/73 114/66 O2 Sat by Pulse 100 99 98 Oximetry 10/23/21 10/23/21 10/23/21 01:00 01:15 01:30 Temperature Pulse Rate 80 80 80 Pulse Rate [ Anterior Bilateral Throughout] Pulse Rate [ Anterior Left Throughout] Pulse Rate [ From Monitor] Respiratory 18 22 19 Rate Respiratory Rate [Anterior Bilateral Throughout] Respiratory Rate [Anterior Left Throughout ] Blood Pressure 100/58 139/79 120/66 O2 Sat by Pulse 100 98 100 Oximetry 10/23/21 10/23/21 10/23/21 01:45 02:00 02:15 Temperature Pulse Rate 80 80 80 Pulse Rate [ Anterior Bilateral Throughout] Pulse Rate [ Anterior Left Throughout] Pulse Rate [ From Monitor] Respiratory 19 18 19 Rate Respiratory Rate [Anterior Bilateral Throughout] Respiratory Rate [Anterior Left Throughout ] Blood Pressure 105/62 103/57 132/68 O2 Sat by Pulse 99 100 100 Oximetry 10/23/21 10/23/21 10/23/21 02:30 02:45 03:00 Temperature Pulse Rate 80 80 80 Pulse Rate [ Anterior Bilateral Throughout] Pulse Rate [ Anterior Left Throughout] Pulse Rate [ From Monitor] Respiratory 18 17 18 Rate Respiratory Rate [Anterior Bilateral Throughout] Respiratory Rate [Anterior Left Throughout ] Blood Pressure 93/54 88/51 85/48 O2 Sat by Pulse 99 100 Oximetry 10/23/21 10/23/21 10/23/21 03:15 03:30 03:39 Temperature 98.4 F Pulse Rate 80 80 Pulse Rate [ Anterior Bilateral Throughout] Pulse Rate [ Anterior Left Throughout] Pulse Rate [ From Monitor] Respiratory 18 17 Rate Respiratory Rate [Anterior Bilateral Throughout] Respiratory Rate [Anterior Left Throughout ] Blood Pressure 108/59 93/52 O2 Sat by Pulse 100 100 Oximetry 10/23/21 10/23/21 10/23/21 03:45 04:00 04:15 Temperature Pulse Rate 80 80 80 Pulse Rate [ Anterior Bilateral Throughout] Pulse Rate [ Anterior Left Throughout] Pulse Rate [ 80 From Monitor] Respiratory 18 17 17 Rate Respiratory Rate [Anterior Bilateral Throughout] Respiratory Rate [Anterior Left Throughout ] Blood Pressure 88/52 111/63 102/59 O2 Sat by Pulse 100 93 Oximetry 10/23/21 10/23/21 10/23/21 04:30 04:41 04:45 Temperature Pulse Rate 80 89 80 Pulse Rate [ Anterior Bilateral Throughout] Pulse Rate [ Anterior Left Throughout] Pulse Rate [ From Monitor] Respiratory 16 21 16 Rate Respiratory Rate [Anterior Bilateral Throughout] Respiratory Rate [Anterior Left Throughout ] Blood Pressure 97/58 96/61 96/61 O2 Sat by Pulse 100 Oximetry 10/23/21 10/23/21 10/23/21 05:01 05:30 06:00 Temperature Pulse Rate 80 80 80 Pulse Rate [ Anterior Bilateral Throughout] Pulse Rate [ Anterior Left Throughout] Pulse Rate [ From Monitor] Respiratory 13 25 H 27 H Rate Respiratory Rate [Anterior Bilateral Throughout] Respiratory Rate [Anterior Left Throughout ] Blood Pressure 140/76 149/77 134/60 O2 Sat by Pulse 98 96 99 Oximetry 10/23/21 10/23/21 10/23/21 06:30 07:00 07:30 Temperature Pulse Rate 80 80 80 Pulse Rate [ Anterior Bilateral Throughout] Pulse Rate [ Anterior Left Throughout] Pulse Rate [ From Monitor] Respiratory 27 H 17 16 Rate Respiratory Rate [Anterior Bilateral Throughout] Respiratory Rate [Anterior Left Throughout ] Blood Pressure 159/75 88/47 83/44 O2 Sat by Pulse 88 97 98 Oximetry 10/23/21 10/23/21 10/23/21 07:33 08:00 08:13 Temperature 98.1 F Pulse Rate 80 80 Pulse Rate [ Anterior Bilateral Throughout] Pulse Rate [ Anterior Left Throughout] Pulse Rate [ From Monitor] Respiratory 18 18 Rate Respiratory Rate [Anterior Bilateral Throughout] Respiratory Rate [Anterior Left Throughout ] Blood Pressure 88/47 134/60 O2 Sat by Pulse 99 99 Oximetry 10/23/21 10/23/21 10/23/21 08:30 09:00 09:30 Temperature Pulse Rate 80 80 80 Pulse Rate [ Anterior Bilateral Throughout] Pulse Rate [ Anterior Left Throughout] Pulse Rate [ From Monitor] Respiratory 19 21 20 Rate Respiratory Rate [Anterior Bilateral Throughout] Respiratory Rate [Anterior Left Throughout ] Blood Pressure 110/69 115/61 144/74 O2 Sat by Pulse 100 99 Oximetry 10/23/21 10/23/21 10/23/21 10:00 10:30 10:48 Temperature Pulse Rate 80 80 Pulse Rate [ 99 H Anterior Bilateral Throughout] Pulse Rate [ 100 H Anterior Left Throughout] Pulse Rate [ From Monitor] Respiratory 24 36 H Rate Respiratory 18 Rate [Anterior Bilateral Throughout] Respiratory 18 Rate [Anterior Left Throughout ] Blood Pressure 190/84 120/63 O2 Sat by Pulse 93 96 Oximetry 10/23/21 11:00 Temperature Pulse Rate 80 Pulse Rate [ Anterior Bilateral Throughout] Pulse Rate [ Anterior Left Throughout] Pulse Rate [ From Monitor] Respiratory 17 Rate Respiratory Rate [Anterior Bilateral Throughout] Respiratory Rate [Anterior Left Throughout ] Blood Pressure 186/78 O2 Sat by Pulse 91 Oximetry Constitutional: no acute distress, other (elderly and chronically ill looking female with mildly increased respiratory effort at rest) Eyes: non-icteric ENT: oropharynx moist, other (ETT 23 cm JESSICA, post tracheostomy scar-healed) Neck: supple, no lymphadenopathy, no JVD Effort: mildly labored Ascultation: Bilateral: diminished breath sounds, rhonchi Percussion: Bilateral: not dull Cardiovascular: regular rate and rhythm Gastrointestinal: normoactive bowel sounds, soft, non-tender, non-distended, other (PEG tube) Integumentary: rash (xeroderma type) Extremities: no cyanosis, no edema Neurologic: pupils equal and round, unable to assess Psychiatric: other (unable to assess re: AMS) CBC and BMP: 10/24/21 06:05 10/24/21 06:05 ABG, PT/INR, D-dimer: ABG ABG pH 7.336 pH Units (7.350-7.450) L 10/21/21 18:45 POC ABG pCO2 48.1 mmHg (32.0-48.0) H 10/18/21 09:00 ABG pCO2 49.3 mm Hg 10/21/21 18:45 POC ABG pO2 103.0 mmHg (83-108) 10/18/21 09:00 ABG pO2 83.5 mm Hg (80.0-90.0) 10/21/21 18:45 POC ABG HCO3 22.2 10/18/21 09:00 ABG O2 Saturation 96.0 % (95.0-99.0) 10/21/21 18:45 PT/INR, D-dimer PT 16.3 Sec. (12.2-14.9) H 10/20/21 18:05 INR 1.18 (0.87-1.13) H 10/20/21 18:05 D-Dimer 1890.39 ng/mlDDU (0-234) H 10/23/21 05:15 Abnormal lab findings: Abnormal Labs 10/15/21 10/15/21 10/15/21 16:15 16:15 16:15 WBC 17.2 H RBC Hgb 9.0 L Hct 29.7 L MCV 78 L MCH 24 L RDW 17.5 H Plt Count Seg Neuts % (Manual) 88.0 H Lymphocytes % (Manual) 3.0 L Nucleated RBC % Seg Neutrophils # Man 15.1 H Lymphocytes # (Manual) 0.5 L PT INR APTT 38.0 H Fibrinogen D-Dimer 7433.97 H Heparin Anti-Xa Level ABG pH POC ABG pCO2 ABG pO2 ABG HCO3 ABG O2 Saturation ABG Base Excess ABG Hemoglobin ABG Sodium ABG Chloride ABG Glucose Oxyhemoglobin Sodium Potassium Chloride Carbon Dioxide BUN Glucose POC Glucose Lactic Acid 5.60 H* Calcium Phosphorus Magnesium Iron TIBC Ferritin Direct Bilirubin ALT Lactate Dehydrogenase Troponin T C-Reactive Protein NT-Pro-B Natriuret Pep Total Protein Albumin LDL Cholesterol Direct HDL Cholesterol Arterial Blood Glucose Salicylates Acetaminophen Coronavirus (PCR) Crossmatch 10/15/21 10/15/21 10/15/21 16:15 16:15 16:15 WBC RBC Hgb Hct MCV MCH RDW Plt Count Seg Neuts % (Manual) Lymphocytes % (Manual) Nucleated RBC % Seg Neutrophils # Man Lymphocytes # (Manual) PT INR APTT Fibrinogen D-Dimer Heparin Anti-Xa Level ABG pH POC ABG pCO2 ABG pO2 ABG HCO3 ABG O2 Saturation ABG Base Excess ABG Hemoglobin ABG Sodium ABG Chloride ABG Glucose Oxyhemoglobin Sodium 134 L Potassium Chloride 89.6 L Carbon Dioxide BUN 27 H Glucose 234 H POC Glucose Lactic Acid Calcium Phosphorus Magnesium 1.40 L Iron TIBC Ferritin Direct Bilirubin 0.3 H ALT Lactate Dehydrogenase Troponin T C-Reactive Protein NT-Pro-B Natriuret Pep 6606 H Total Protein 6.2 L Albumin 3.1 L LDL Cholesterol Direct HDL Cholesterol Arterial Blood Glucose Salicylates < 0.3 L Acetaminophen 5.0 L Coronavirus (PCR) Crossmatch 10/15/21 10/15/21 10/15/21 16:15 16:15 16:15 WBC RBC Hgb Hct MCV MCH RDW Plt Count Seg Neuts % (Manual) Lymphocytes % (Manual) Nucleated RBC % Seg Neutrophils # Man Lymphocytes # (Manual) PT INR APTT Fibrinogen D-Dimer Heparin Anti-Xa Level ABG pH POC ABG pCO2 ABG pO2 ABG HCO3 ABG O2 Saturation ABG Base Excess ABG Hemoglobin ABG Sodium ABG Chloride ABG Glucose Oxyhemoglobin Sodium Potassium Chloride Carbon Dioxide BUN Glucose 221 H POC Glucose Lactic Acid Calcium Phosphorus Magnesium Iron TIBC Ferritin 418.8 H 421.6 H Direct Bilirubin ALT Lactate Dehydrogenase 233 H Troponin T C-Reactive Protein 25.90 H NT-Pro-B Natriuret Pep Total Protein Albumin LDL Cholesterol Direct HDL Cholesterol Arterial Blood Glucose Salicylates Acetaminophen Coronavirus (PCR) Crossmatch 10/15/21 10/15/21 10/15/21 16:42 18:00 18:00 WBC RBC Hgb Hct MCV MCH RDW Plt Count Seg Neuts % (Manual) Lymphocytes % (Manual) Nucleated RBC % Seg Neutrophils # Man Lymphocytes # (Manual) PT INR APTT Fibrinogen D-Dimer Heparin Anti-Xa Level ABG pH 7.348 L POC ABG pCO2 ABG pO2 75.4 L ABG HCO3 30.6 H ABG O2 Saturation 94.3 L ABG Base Excess 3.9 H ABG Hemoglobin 10.9 L ABG Sodium ABG Chloride ABG Glucose Oxyhemoglobin 93.1 L Sodium Potassium Chloride Carbon Dioxide BUN Glucose POC Glucose Lactic Acid 3.10 H* Calcium Phosphorus Magnesium Iron TIBC Ferritin Direct Bilirubin ALT Lactate Dehydrogenase Troponin T 0.036 H C-Reactive Protein NT-Pro-B Natriuret Pep Total Protein Albumin LDL Cholesterol Direct 46 L HDL Cholesterol 25 L Arterial Blood Glucose Salicylates Acetaminophen Coronavirus (PCR) Crossmatch 10/15/21 10/16/21 10/16/21 20:58 01:55 04:50 WBC RBC Hgb Hct MCV MCH RDW Plt Count Seg Neuts % (Manual) Lymphocytes % (Manual) Nucleated RBC % Seg Neutrophils # Man Lymphocytes # (Manual) PT INR APTT Fibrinogen D-Dimer Heparin Anti-Xa Level ABG pH 7.490 H POC ABG pCO2 ABG pO2 ABG HCO3 ABG O2 Saturation ABG Base Excess ABG Hemoglobin 9.7 L ABG Sodium 128.9 L ABG Chloride 96.0 L ABG Glucose 235 H Oxyhemoglobin Sodium 135 L Potassium Chloride 94.9 L Carbon Dioxide BUN 28 H Glucose 226 H POC Glucose Lactic Acid Calcium Phosphorus Magnesium Iron TIBC Ferritin Direct Bilirubin ALT Lactate Dehydrogenase Troponin T 0.038 H C-Reactive Protein NT-Pro-B Natriuret Pep Total Protein Albumin LDL Cholesterol Direct HDL Cholesterol Arterial Blood Glucose 235 H Salicylates Acetaminophen Coronavirus (PCR) Crossmatch 10/16/21 10/16/21 10/16/21 09:05 09:05 09:05 WBC 14.9 H RBC 3.20 L Hgb 7.6 L Hct 24.8 L MCV 77 L MCH 24 L RDW 17.5 H Plt Count Seg Neuts % (Manual) Lymphocytes % (Manual) Nucleated RBC % Seg Neutrophils # Man Lymphocytes # (Manual) PT INR APTT Fibrinogen D-Dimer Heparin Anti-Xa Level ABG pH POC ABG pCO2 ABG pO2 ABG HCO3 ABG O2 Saturation ABG Base Excess ABG Hemoglobin ABG Sodium ABG Chloride ABG Glucose Oxyhemoglobin Sodium 132 L Potassium Chloride 93.2 L Carbon Dioxide BUN 28 H Glucose 225 H POC Glucose Lactic Acid 2.30 H* Calcium 8.3 L Phosphorus Magnesium 1.30 L Iron TIBC Ferritin Direct Bilirubin ALT Lactate Dehydrogenase Troponin T C-Reactive Protein NT-Pro-B Natriuret Pep Total Protein 5.7 L Albumin 2.4 L LDL Cholesterol Direct HDL Cholesterol Arterial Blood Glucose Salicylates Acetaminophen Coronavirus (PCR) Crossmatch 10/16/21 10/16/21 10/16/21 09:05 09:36 12:24 WBC RBC Hgb Hct MCV MCH RDW Plt Count Seg Neuts % (Manual) Lymphocytes % (Manual) Nucleated RBC % Seg Neutrophils # Man Lymphocytes # (Manual) PT INR APTT Fibrinogen D-Dimer Heparin Anti-Xa Level ABG pH POC ABG pCO2 ABG pO2 ABG HCO3 ABG O2 Saturation ABG Base Excess ABG Hemoglobin ABG Sodium ABG Chloride ABG Glucose Oxyhemoglobin Sodium Potassium Chloride Carbon Dioxide BUN Glucose POC Glucose 187 H Lactic Acid Calcium Phosphorus 2.10 L Magnesium Iron TIBC Ferritin Direct Bilirubin ALT Lactate Dehydrogenase Troponin T C-Reactive Protein NT-Pro-B Natriuret Pep Total Protein Albumin LDL Cholesterol Direct HDL Cholesterol Arterial Blood Glucose Salicylates Acetaminophen Coronavirus (PCR) Positive A Crossmatch 10/16/21 10/16/21 10/16/21 17:19 21:00 23:31 WBC RBC Hgb Hct MCV MCH RDW Plt Count Seg Neuts % (Manual) Lymphocytes % (Manual) Nucleated RBC % Seg Neutrophils # Man Lymphocytes # (Manual) PT INR APTT Fibrinogen D-Dimer Heparin Anti-Xa Level ABG pH POC ABG pCO2 ABG pO2 ABG HCO3 ABG O2 Saturation ABG Base Excess ABG Hemoglobin ABG Sodium ABG Chloride ABG Glucose Oxyhemoglobin Sodium Potassium Chloride Carbon Dioxide BUN Glucose POC Glucose 128 H 132 H Lactic Acid Calcium Phosphorus Magnesium Iron TIBC Ferritin Direct Bilirubin ALT Lactate Dehydrogenase 216 H Troponin T C-Reactive Protein 26.90 H NT-Pro-B Natriuret Pep Total Protein Albumin LDL Cholesterol Direct HDL Cholesterol Arterial Blood Glucose Salicylates Acetaminophen Coronavirus (PCR) Crossmatch 10/16/21 10/17/21 10/17/21 23:31 06:02 06:02 WBC 16.7 H RBC 3.16 L Hgb 7.6 L Hct 24.2 L MCV 77 L MCH 24 L RDW 17.7 H Plt Count Seg Neuts % (Manual) 95.0 H Lymphocytes % (Manual) 1.0 L Nucleated RBC % Seg Neutrophils # Man 15.9 H Lymphocytes # (Manual) 0.2 L PT INR APTT Fibrinogen D-Dimer Heparin Anti-Xa Level ABG pH POC ABG pCO2 ABG pO2 ABG HCO3 ABG O2 Saturation ABG Base Excess ABG Hemoglobin ABG Sodium ABG Chloride ABG Glucose Oxyhemoglobin Sodium Potassium Chloride Carbon Dioxide BUN 32 H Glucose 163 H POC Glucose Lactic Acid Calcium 7.8 L Phosphorus Magnesium Iron TIBC Ferritin 428.7 H Direct Bilirubin ALT Lactate Dehydrogenase Troponin T C-Reactive Protein NT-Pro-B Natriuret Pep Total Protein 5.7 L Albumin 2.3 L LDL Cholesterol Direct HDL Cholesterol Arterial Blood Glucose Salicylates Acetaminophen Coronavirus (PCR) Crossmatch 10/17/21 10/17/21 10/17/21 06:02 06:02 06:21 WBC RBC Hgb Hct MCV MCH RDW Plt Count Seg Neuts % (Manual) Lymphocytes % (Manual) Nucleated RBC % Seg Neutrophils # Man Lymphocytes # (Manual) PT INR APTT Fibrinogen D-Dimer Heparin Anti-Xa Level ABG pH POC ABG pCO2 ABG pO2 ABG HCO3 ABG O2 Saturation ABG Base Excess ABG Hemoglobin ABG Sodium ABG Chloride ABG Glucose Oxyhemoglobin Sodium Potassium 3.5 L Chloride Carbon Dioxide BUN 32 H Glucose 216 H POC Glucose 219 H Lactic Acid Calcium Phosphorus Magnesium 1.40 L Iron TIBC Ferritin Direct Bilirubin 0.3 H ALT Lactate Dehydrogenase 257 H Troponin T C-Reactive Protein 28.50 H NT-Pro-B Natriuret Pep Total Protein 5.8 L Albumin 2.3 L LDL Cholesterol Direct HDL Cholesterol Arterial Blood Glucose Salicylates Acetaminophen Coronavirus (PCR) Crossmatch 10/17/21 10/17/21 10/17/21 08:35 12:38 17:35 WBC RBC Hgb Hct MCV MCH RDW Plt Count Seg Neuts % (Manual) Lymphocytes % (Manual) Nucleated RBC % Seg Neutrophils # Man Lymphocytes # (Manual) PT INR APTT Fibrinogen D-Dimer Heparin Anti-Xa Level ABG pH POC ABG pCO2 ABG pO2 ABG HCO3 ABG O2 Saturation ABG Base Excess ABG Hemoglobin ABG Sodium ABG Chloride ABG Glucose Oxyhemoglobin Sodium Potassium Chloride Carbon Dioxide BUN Glucose POC Glucose 216 H 262 H 230 H Lactic Acid Calcium Phosphorus Magnesium Iron TIBC Ferritin Direct Bilirubin ALT Lactate Dehydrogenase Troponin T C-Reactive Protein NT-Pro-B Natriuret Pep Total Protein Albumin LDL Cholesterol Direct HDL Cholesterol Arterial Blood Glucose Salicylates Acetaminophen Coronavirus (PCR) Crossmatch 10/17/21 10/17/21 10/18/21 18:20 22:17 00:16 WBC RBC Hgb Hct MCV MCH RDW Plt Count Seg Neuts % (Manual) Lymphocytes % (Manual) Nucleated RBC % Seg Neutrophils # Man Lymphocytes # (Manual) PT INR APTT Fibrinogen D-Dimer Heparin Anti-Xa Level 0.24 L ABG pH POC ABG pCO2 ABG pO2 ABG HCO3 ABG O2 Saturation ABG Base Excess ABG Hemoglobin ABG Sodium ABG Chloride ABG Glucose Oxyhemoglobin Sodium Potassium Chloride Carbon Dioxide BUN Glucose POC Glucose 215 H 247 H Lactic Acid Calcium Phosphorus Magnesium Iron TIBC Ferritin Direct Bilirubin ALT Lactate Dehydrogenase Troponin T C-Reactive Protein NT-Pro-B Natriuret Pep Total Protein Albumin LDL Cholesterol Direct HDL Cholesterol Arterial Blood Glucose Salicylates Acetaminophen Coronavirus (PCR) Crossmatch 10/18/21 10/18/21 10/18/21 04:40 04:40 05:00 WBC RBC Hgb Hct MCV MCH RDW Plt Count Seg Neuts % (Manual) Lymphocytes % (Manual) Nucleated RBC % Seg Neutrophils # Man Lymphocytes # (Manual) PT INR APTT Fibrinogen D-Dimer 2424.98 H Heparin Anti-Xa Level ABG pH POC ABG pCO2 ABG pO2 ABG HCO3 ABG O2 Saturation ABG Base Excess ABG Hemoglobin ABG Sodium ABG Chloride ABG Glucose Oxyhemoglobin Sodium Potassium Chloride Carbon Dioxide BUN 44 H Glucose 286 H POC Glucose Lactic Acid Calcium 7.8 L Phosphorus Magnesium 2.60 H Iron TIBC Ferritin Direct Bilirubin ALT Lactate Dehydrogenase Troponin T C-Reactive Protein NT-Pro-B Natriuret Pep Total Protein 5.7 L Albumin 2.2 L LDL Cholesterol Direct HDL Cholesterol Arterial Blood Glucose Salicylates Acetaminophen Coronavirus (PCR) Crossmatch 10/18/21 10/18/21 10/18/21 05:16 05:39 07:29 WBC 16.4 H RBC 3.03 L Hgb 7.3 L Hct 23.5 L MCV 78 L MCH 24 L RDW 17.9 H Plt Count Seg Neuts % (Manual) Lymphocytes % (Manual) Nucleated RBC % Seg Neutrophils # Man Lymphocytes # (Manual) PT INR APTT Fibrinogen D-Dimer Heparin Anti-Xa Level ABG pH POC ABG pCO2 ABG pO2 ABG HCO3 ABG O2 Saturation ABG Base Excess ABG Hemoglobin ABG Sodium ABG Chloride ABG Glucose Oxyhemoglobin Sodium Potassium Chloride Carbon Dioxide BUN Glucose POC Glucose 281 H 274 H Lactic Acid Calcium Phosphorus Magnesium Iron TIBC Ferritin Direct Bilirubin ALT Lactate Dehydrogenase Troponin T C-Reactive Protein NT-Pro-B Natriuret Pep Total Protein Albumin LDL Cholesterol Direct HDL Cholesterol Arterial Blood Glucose Salicylates Acetaminophen Coronavirus (PCR) Crossmatch 10/18/21 10/18/21 10/18/21 09:00 11:27 11:30 WBC RBC Hgb Hct MCV MCH RDW Plt Count Seg Neuts % (Manual) Lymphocytes % (Manual) Nucleated RBC % Seg Neutrophils # Man Lymphocytes # (Manual) PT INR APTT Fibrinogen D-Dimer Heparin Anti-Xa Level 0.24 L ABG pH 7.282 L POC ABG pCO2 48.1 H ABG pO2 ABG HCO3 ABG O2 Saturation ABG Base Excess ABG Hemoglobin 7.6 L ABG Sodium ABG Chloride ABG Glucose 252 H Oxyhemoglobin Sodium Potassium Chloride Carbon Dioxide BUN Glucose POC Glucose 219 H Lactic Acid Calcium Phosphorus Magnesium Iron TIBC Ferritin Direct Bilirubin ALT Lactate Dehydrogenase Troponin T C-Reactive Protein NT-Pro-B Natriuret Pep Total Protein Albumin LDL Cholesterol Direct HDL Cholesterol Arterial Blood Glucose 252 H Salicylates Acetaminophen Coronavirus (PCR) Crossmatch 10/18/21 10/18/21 10/18/21 15:58 19:56 23:21 WBC RBC Hgb Hct MCV MCH RDW Plt Count Seg Neuts % (Manual) Lymphocytes % (Manual) Nucleated RBC % Seg Neutrophils # Man Lymphocytes # (Manual) PT INR APTT Fibrinogen D-Dimer Heparin Anti-Xa Level 0.22 L ABG pH POC ABG pCO2 ABG pO2 ABG HCO3 ABG O2 Saturation ABG Base Excess ABG Hemoglobin ABG Sodium ABG Chloride ABG Glucose Oxyhemoglobin Sodium Potassium Chloride Carbon Dioxide BUN Glucose POC Glucose 264 H 198 H Lactic Acid Calcium Phosphorus Magnesium Iron TIBC Ferritin Direct Bilirubin ALT Lactate Dehydrogenase Troponin T C-Reactive Protein NT-Pro-B Natriuret Pep Total Protein Albumin LDL Cholesterol Direct HDL Cholesterol Arterial Blood Glucose Salicylates Acetaminophen Coronavirus (PCR) Crossmatch 10/19/21 10/19/21 10/19/21 02:40 02:40 02:40 WBC RBC Hgb Hct MCV MCH RDW Plt Count Seg Neuts % (Manual) Lymphocytes % (Manual) Nucleated RBC % Seg Neutrophils # Man Lymphocytes # (Manual) PT INR APTT Fibrinogen D-Dimer Heparin Anti-Xa Level ABG pH POC ABG pCO2 ABG pO2 ABG HCO3 ABG O2 Saturation ABG Base Excess ABG Hemoglobin ABG Sodium ABG Chloride ABG Glucose Oxyhemoglobin Sodium Potassium Chloride Carbon Dioxide BUN 49 H Glucose 167 H POC Glucose Lactic Acid Calcium Phosphorus Magnesium Iron TIBC Ferritin 383.0 H Direct Bilirubin ALT Lactate Dehydrogenase 223 H Troponin T C-Reactive Protein 9.30 H NT-Pro-B Natriuret Pep Total Protein 6.2 L Albumin 2.5 L LDL Cholesterol Direct HDL Cholesterol Arterial Blood Glucose Salicylates Acetaminophen Coronavirus (PCR) Crossmatch 10/19/21 10/19/21 10/19/21 02:40 02:40 05:06 WBC 15.5 H RBC 3.13 L Hgb 7.5 L Hct 24.3 L MCV 77 L MCH 24 L RDW 17.8 H Plt Count Seg Neuts % (Manual) Lymphocytes % (Manual) Nucleated RBC % Seg Neutrophils # Man Lymphocytes # (Manual) PT INR APTT Fibrinogen D-Dimer Heparin Anti-Xa Level 0.17 L ABG pH POC ABG pCO2 ABG pO2 ABG HCO3 ABG O2 Saturation ABG Base Excess ABG Hemoglobin ABG Sodium ABG Chloride ABG Glucose Oxyhemoglobin Sodium Potassium Chloride Carbon Dioxide BUN Glucose POC Glucose 152 H Lactic Acid Calcium Phosphorus Magnesium Iron TIBC Ferritin Direct Bilirubin ALT Lactate Dehydrogenase Troponin T C-Reactive Protein NT-Pro-B Natriuret Pep Total Protein Albumin LDL Cholesterol Direct HDL Cholesterol Arterial Blood Glucose Salicylates Acetaminophen Coronavirus (PCR) Crossmatch 10/19/21 10/19/21 10/19/21 11:40 16:06 23:55 WBC RBC Hgb Hct MCV MCH RDW Plt Count Seg Neuts % (Manual) Lymphocytes % (Manual) Nucleated RBC % Seg Neutrophils # Man Lymphocytes # (Manual) PT INR APTT Fibrinogen D-Dimer Heparin Anti-Xa Level ABG pH POC ABG pCO2 ABG pO2 ABG HCO3 ABG O2 Saturation ABG Base Excess ABG Hemoglobin ABG Sodium ABG Chloride ABG Glucose Oxyhemoglobin Sodium Potassium Chloride Carbon Dioxide BUN Glucose POC Glucose 146 H 244 H 229 H Lactic Acid Calcium Phosphorus Magnesium Iron TIBC Ferritin Direct Bilirubin ALT Lactate Dehydrogenase Troponin T C-Reactive Protein NT-Pro-B Natriuret Pep Total Protein Albumin LDL Cholesterol Direct HDL Cholesterol Arterial Blood Glucose Salicylates Acetaminophen Coronavirus (PCR) Crossmatch 10/20/21 10/20/21 10/20/21 04:25 05:00 05:00 WBC 16.2 H RBC 3.04 L Hgb 7.3 L Hct 23.6 L MCV 78 L MCH 24 L RDW 18.0 H Plt Count Seg Neuts % (Manual) 85.0 H Lymphocytes % (Manual) 6.0 L Nucleated RBC % 1.0 H Seg Neutrophils # Man 13.8 H Lymphocytes # (Manual) 1.0 L PT INR APTT Fibrinogen 803 H D-Dimer 1817.20 H Heparin Anti-Xa Level ABG pH POC ABG pCO2 ABG pO2 ABG HCO3 ABG O2 Saturation ABG Base Excess ABG Hemoglobin ABG Sodium ABG Chloride ABG Glucose Oxyhemoglobin Sodium Potassium Chloride 108.5 H Carbon Dioxide 21 L BUN 49 H Glucose 186 H POC Glucose Lactic Acid Calcium Phosphorus Magnesium Iron 14 L TIBC 138 L Ferritin Direct Bilirubin ALT Lactate Dehydrogenase Troponin T C-Reactive Protein NT-Pro-B Natriuret Pep Total Protein 5.7 L Albumin 2.4 L LDL Cholesterol Direct HDL Cholesterol Arterial Blood Glucose Salicylates Acetaminophen Coronavirus (PCR) Crossmatch 10/20/21 10/20/21 10/20/21 05:11 10:45 12:14 WBC RBC Hgb Hct MCV MCH RDW Plt Count Seg Neuts % (Manual) Lymphocytes % (Manual) Nucleated RBC % Seg Neutrophils # Man Lymphocytes # (Manual) PT INR APTT Fibrinogen D-Dimer Heparin Anti-Xa Level 0.14 L ABG pH POC ABG pCO2 ABG pO2 ABG HCO3 ABG O2 Saturation ABG Base Excess ABG Hemoglobin ABG Sodium ABG Chloride ABG Glucose Oxyhemoglobin Sodium Potassium Chloride Carbon Dioxide BUN Glucose POC Glucose 181 H 192 H Lactic Acid Calcium Phosphorus Magnesium Iron TIBC Ferritin Direct Bilirubin ALT Lactate Dehydrogenase Troponin T C-Reactive Protein NT-Pro-B Natriuret Pep Total Protein Albumin LDL Cholesterol Direct HDL Cholesterol Arterial Blood Glucose Salicylates Acetaminophen Coronavirus (PCR) Crossmatch 10/20/21 10/20/21 10/20/21 13:45 17:16 18:05 WBC RBC Hgb Hct MCV MCH RDW Plt Count Seg Neuts % (Manual) Lymphocytes % (Manual) Nucleated RBC % Seg Neutrophils # Man Lymphocytes # (Manual) PT 16.3 H INR 1.18 H APTT Fibrinogen D-Dimer Heparin Anti-Xa Level ABG pH POC ABG pCO2 ABG pO2 ABG HCO3 ABG O2 Saturation ABG Base Excess ABG Hemoglobin 7.9 L ABG Sodium ABG Chloride ABG Glucose Oxyhemoglobin Sodium Potassium Chloride Carbon Dioxide BUN Glucose POC Glucose 182 H Lactic Acid Calcium Phosphorus Magnesium Iron TIBC Ferritin Direct Bilirubin ALT Lactate Dehydrogenase Troponin T C-Reactive Protein NT-Pro-B Natriuret Pep Total Protein Albumin LDL Cholesterol Direct HDL Cholesterol Arterial Blood Glucose Salicylates Acetaminophen Coronavirus (PCR) Crossmatch 10/21/21 10/21/21 10/21/21 00:23 04:53 04:53 WBC 18.6 H RBC 2.88 L Hgb 6.8 L Hct 22.1 L MCV 77 L MCH 24 L RDW 18.2 H Plt Count Seg Neuts % (Manual) Lymphocytes % (Manual) Nucleated RBC % Seg Neutrophils # Man Lymphocytes # (Manual) PT INR APTT Fibrinogen D-Dimer Heparin Anti-Xa Level ABG pH POC ABG pCO2 ABG pO2 ABG HCO3 ABG O2 Saturation ABG Base Excess ABG Hemoglobin ABG Sodium ABG Chloride ABG Glucose Oxyhemoglobin Sodium 146 H Potassium Chloride 113.0 H Carbon Dioxide BUN 42 H Glucose 165 H POC Glucose 188 H Lactic Acid Calcium Phosphorus Magnesium Iron TIBC Ferritin Direct Bilirubin ALT Lactate Dehydrogenase Troponin T C-Reactive Protein NT-Pro-B Natriuret Pep Total Protein Albumin LDL Cholesterol Direct HDL Cholesterol Arterial Blood Glucose Salicylates Acetaminophen Coronavirus (PCR) Crossmatch 10/21/21 10/21/21 10/21/21 05:19 08:35 11:43 WBC RBC Hgb Hct MCV MCH RDW Plt Count Seg Neuts % (Manual) Lymphocytes % (Manual) Nucleated RBC % Seg Neutrophils # Man Lymphocytes # (Manual) PT INR APTT Fibrinogen D-Dimer Heparin Anti-Xa Level ABG pH POC ABG pCO2 ABG pO2 ABG HCO3 ABG O2 Saturation ABG Base Excess ABG Hemoglobin ABG Sodium ABG Chloride ABG Glucose Oxyhemoglobin Sodium Potassium Chloride Carbon Dioxide BUN Glucose POC Glucose 160 H 126 H Lactic Acid Calcium Phosphorus Magnesium Iron TIBC Ferritin Direct Bilirubin ALT Lactate Dehydrogenase Troponin T C-Reactive Protein NT-Pro-B Natriuret Pep Total Protein Albumin LDL Cholesterol Direct HDL Cholesterol Arterial Blood Glucose Salicylates Acetaminophen Coronavirus (PCR) Crossmatch See Detail 10/21/21 10/21/21 10/21/21 17:33 18:45 23:50 WBC RBC Hgb Hct MCV MCH RDW Plt Count Seg Neuts % (Manual) Lymphocytes % (Manual) Nucleated RBC % Seg Neutrophils # Man Lymphocytes # (Manual) PT INR APTT Fibrinogen D-Dimer Heparin Anti-Xa Level ABG pH 7.336 L POC ABG pCO2 ABG pO2 ABG HCO3 ABG O2 Saturation ABG Base Excess ABG Hemoglobin 7.6 L ABG Sodium ABG Chloride ABG Glucose Oxyhemoglobin 94.6 L Sodium Potassium Chloride Carbon Dioxide BUN Glucose POC Glucose 163 H 198 H Lactic Acid Calcium Phosphorus Magnesium Iron TIBC Ferritin Direct Bilirubin ALT Lactate Dehydrogenase Troponin T C-Reactive Protein NT-Pro-B Natriuret Pep Total Protein Albumin LDL Cholesterol Direct HDL Cholesterol Arterial Blood Glucose Salicylates Acetaminophen Coronavirus (PCR) Crossmatch 10/22/21 10/22/21 10/22/21 04:30 04:30 04:30 WBC 21.5 H RBC 3.01 L Hgb 7.3 L Hct 23.9 L MCV MCH 24 L RDW 18.7 H Plt Count 454 H Seg Neuts % (Manual) 85.0 H Lymphocytes % (Manual) 3.0 L Nucleated RBC % Seg Neutrophils # Man 18.3 H Lymphocytes # (Manual) 0.6 L PT INR APTT Fibrinogen D-Dimer Heparin Anti-Xa Level 0.75 H ABG pH POC ABG pCO2 ABG pO2 ABG HCO3 ABG O2 Saturation ABG Base Excess ABG Hemoglobin ABG Sodium ABG Chloride ABG Glucose Oxyhemoglobin Sodium Potassium 5.1 H Chloride 111.7 H Carbon Dioxide BUN 41 H Glucose 203 H POC Glucose Lactic Acid Calcium Phosphorus Magnesium Iron TIBC Ferritin Direct Bilirubin ALT 5 L Lactate Dehydrogenase Troponin T C-Reactive Protein NT-Pro-B Natriuret Pep Total Protein 6.2 L Albumin 2.5 L LDL Cholesterol Direct HDL Cholesterol Arterial Blood Glucose Salicylates Acetaminophen Coronavirus (PCR) Crossmatch 10/22/21 10/22/21 10/22/21 05:12 11:41 17:01 WBC RBC Hgb Hct MCV MCH RDW Plt Count Seg Neuts % (Manual) Lymphocytes % (Manual) Nucleated RBC % Seg Neutrophils # Man Lymphocytes # (Manual) PT INR APTT Fibrinogen D-Dimer Heparin Anti-Xa Level ABG pH POC ABG pCO2 ABG pO2 ABG HCO3 ABG O2 Saturation ABG Base Excess ABG Hemoglobin ABG Sodium ABG Chloride ABG Glucose Oxyhemoglobin Sodium Potassium Chloride Carbon Dioxide BUN Glucose POC Glucose 189 H 139 H 192 H Lactic Acid Calcium Phosphorus Magnesium Iron TIBC Ferritin Direct Bilirubin ALT Lactate Dehydrogenase Troponin T C-Reactive Protein NT-Pro-B Natriuret Pep Total Protein Albumin LDL Cholesterol Direct HDL Cholesterol Arterial Blood Glucose Salicylates Acetaminophen Coronavirus (PCR) Crossmatch 10/22/21 10/23/21 10/23/21 23:51 05:15 05:15 WBC 19.0 H RBC 3.18 L Hgb 7.6 L Hct 24.7 L MCV 78 L MCH 24 L RDW 18.5 H Plt Count 533 H Seg Neuts % (Manual) Lymphocytes % (Manual) Nucleated RBC % Seg Neutrophils # Man Lymphocytes # (Manual) PT INR APTT Fibrinogen D-Dimer Heparin Anti-Xa Level ABG pH POC ABG pCO2 ABG pO2 ABG HCO3 ABG O2 Saturation ABG Base Excess ABG Hemoglobin ABG Sodium ABG Chloride ABG Glucose Oxyhemoglobin Sodium 148 H Potassium 5.1 H Chloride 112.8 H Carbon Dioxide BUN 38 H Glucose 158 H POC Glucose 196 H Lactic Acid Calcium Phosphorus 2.40 L Magnesium Iron TIBC Ferritin Direct Bilirubin ALT Lactate Dehydrogenase 329 H Troponin T C-Reactive Protein 5.00 H NT-Pro-B Natriuret Pep Total Protein Albumin LDL Cholesterol Direct HDL Cholesterol Arterial Blood Glucose Salicylates Acetaminophen Coronavirus (PCR) Crossmatch 10/23/21 10/23/21 10/23/21 05:15 05:15 05:38 WBC RBC Hgb Hct MCV MCH RDW Plt Count Seg Neuts % (Manual) Lymphocytes % (Manual) Nucleated RBC % Seg Neutrophils # Man Lymphocytes # (Manual) PT INR APTT Fibrinogen D-Dimer 1890.39 H Heparin Anti-Xa Level ABG pH POC ABG pCO2 ABG pO2 ABG HCO3 ABG O2 Saturation ABG Base Excess ABG Hemoglobin ABG Sodium ABG Chloride ABG Glucose Oxyhemoglobin Sodium Potassium Chloride Carbon Dioxide BUN Glucose POC Glucose 149 H Lactic Acid Calcium Phosphorus Magnesium Iron TIBC Ferritin 624.0 H Direct Bilirubin ALT Lactate Dehydrogenase Troponin T C-Reactive Protein NT-Pro-B Natriuret Pep Total Protein Albumin LDL Cholesterol Direct HDL Cholesterol Arterial Blood Glucose Salicylates Acetaminophen Coronavirus (PCR) Crossmatch 10/23/21 11:26 WBC RBC Hgb Hct MCV MCH RDW Plt Count Seg Neuts % (Manual) Lymphocytes % (Manual) Nucleated RBC % Seg Neutrophils # Man Lymphocytes # (Manual) PT INR APTT Fibrinogen D-Dimer Heparin Anti-Xa Level ABG pH POC ABG pCO2 ABG pO2 ABG HCO3 ABG O2 Saturation ABG Base Excess ABG Hemoglobin ABG Sodium ABG Chloride ABG Glucose Oxyhemoglobin Sodium Potassium Chloride Carbon Dioxide BUN Glucose POC Glucose 235 H Lactic Acid Calcium Phosphorus Magnesium Iron TIBC Ferritin Direct Bilirubin ALT Lactate Dehydrogenase Troponin T C-Reactive Protein NT-Pro-B Natriuret Pep Total Protein Albumin LDL Cholesterol Direct HDL Cholesterol Arterial Blood Glucose Salicylates Acetaminophen Coronavirus (PCR) Crossmatch Chest x-ray: image reviewed Allied health notes reviewed: RT
--- NOTE | 2021-10-23 13:28 | Progress Note ---
Assessment and Plan Assessment and plan: This is a 86-year-old female with past medical history of HTN, CVA (2019), Alzheimer, DM, seizure disorder, right lower leg DVT (was on Xarelto), and CHF with pacemaker admitted for sepsis and acute hypoxic respiratory failure 2/2 COVID pneumonia requiring ventilatory support. Hospital Course to Date: 10/16: Patient COVID-19 PCR positive, given IVF, CVP measuring initiated, weaning levophed as tolerated. Started on remdesivir/vit c/vit d/ zinc. 10/17: Acute DVT noted in bilateral common femoral vein patient started on heparin drip, magnesium and potassium repleted, vent changes per CCM. Started remdesivir yesterday. 10/18: Remains off Levophed, given 500 mL bolus of normal saline. Increase Lantus. Permissive hypercapnia per CCM. 10/19: Hematology/oncology consulted due to acute on chronic DVT, remains on remdesivir/steroids/vancomycin and cefepime. Tracheal aspirate grew Staph aureus. Levophed remains off. BP and UOP improved after NS bolus yesterday 10/20: MRSA PCR negative, vancomycin discontinued and started on Ancef. heme/onc plans to discontinue heparin gtt and initiation of Lovenox. 10/21: Patient had desaturation x3 even after lavage with RT. Stat CXR ordered. Patient is anemic today and 1 unit of PRBC was ordered. However consent for blood transfusion was declined by son. Risk and benefits explained by RN and [employer] for greater than 45 minutes total. 10/22: minimal vent setting, PSV today. given Kayexalate. Called Fan to give him an update but call sent to [facility], voice message left requesting a call back to hospitalist office at [phone] 10/23: ISHMAEL overnight. Plan for SBT/CPAP trial this am. Mild hyperkalemia this am, X1 dose pf Kayaxalate, FWF added for hypernatremia. Assessement and Plan #Neuro:Alzheimer's Disease #Seizure Disorder #H/o CVA - Patient is nonverbal at baseline - Currently off sedation, open eyes spontaneously but does not follow commands - Keep sedation off for now - PRN analgesic for now for CPOT greater than 3 - Continue home Keppra - Avoid benzodiazepine to reduce the possibility of delirium - PRN analgesia for CPOT greater than 3 - Maintenance of sleep-wake cycle #Hypotension #CHF with PPM #H/o Hypertension - Vpacing on the monitor at 80 - Patient with marginal BP this am, off pressors this am - Levophed gtt is on standby - Hold home antihypertensive regimen at this time - Cardiology consulted, appreciate recommendations - 10/16 Echo with a EF 45 to 50%, RVSP 45-50 mmHg, moderate left ventricular hypertrophy, trace to small anterior pericardial effusion no tamponade - Elevated proBNP 6606 on admit, s/p IV Lasix - Strick I&Os - Daily weight - Continue Blood pressure monitoring per protocol - Maintain MAP above 65 #Acute Hypoxic Respiratory Failure #Bilateral Pneumonia #COVID Pneumonia - COVID Swab positive - Intubated in the ED on 10/15 - Vent setting: CPAP- 65%,8, PS-20 - No ABG this am - SBT/CPAP trial this am - CCM consulted, appreciate recommendations - Continue IV Steroids and Nebs per CCM - VAP bundle addressed - Aspiration precaution HOB above 30 - Daily SBT and SAT trials as tolerated - Daily ABG and CXR - Continue SPO2 monitoring for SPO2 goal above 92% #GI:TF - Continue Enteral nutrition - Nutrition on consult - Continue PPI and BR #Hyperkalemia #Hypernatremia - Elevated K and Na this am - X1 dose of kayaxalate - FWF added - Strict intake and output - Avoid nephrotoxic medications; Renally dose medications - Monitor and replace electrolytes as needed - Trend BMP #Heme:Acute on Chronic DVT #Iron deficiency anemia #Thrombocytosis - Patient with a history of DVT was on Xarelto at home - Bilateral lower extremities doppler with acute bilateral common femoral DVT - CTA chest without PE - Hematology onsulted, appreciate recommendations - Continue AC- Lovenox - Low Fe- S/p iron IV - H&H remains stable - NO BLOOD TRANSFUSION per patient's son - Continue to trend CBC #ID: Severe Sepsis with Shock #Bilateral Pneumonia #COVID Penumonia #Leukocytosis #Lactic Acidosis- resolved - Presented with low BP, elevated lactic, with leukocytosis - CXR showed B PNA - CT chest showed B consolidation (left greater than right) - Procalcitonin 39.5, CRP 26.9 - Sputum cult with + Staph Areurs - Infectious disease consulted, appreciate recommendations - s/p X5days Remdesevir - Continue IV Antibiotics per ID - Patient remains afebrile, leukocytosis downtrending - Continue to F/U on B.cult - Daily CBC monitor #Endo: Type 2 DM - Continue SSI Q6hrs - Avoid Hypoglycemia The high probability of a clinically significant, sudden or life threatening deterioration of the [multi] system(s) required my full and direct attention, intervention and personal management. The aggregate critical care time was [90] minutes. This time is in addition to time spent performing reported procedures but includes the following: [x] Data Review and interpretation [x] Patient assessment and monitoring of vital signs [x] Documentation [x] Medication orders and management Disposition Plan: ICU Total Time Spent with Patient (Minutes): 90 History Interval history: Patient seen and examined at the bedside. Patient is intubated, sedation on hold for possible SBT/CPAP trial this am. Patient open eyes spontaneously but does not follow any commands. ISHMAEL overnight Hospitalist Physical - Constitutional Vitals: Temp Pulse Resp BP Pulse Ox 98.4 F 80 20 186/78 95 10/23/21 11:57 10/23/21 12:20 10/23/21 12:20 10/23/21 12:20 10/23/21 12:20 General appearance: Present: mild distress, other (On the vent) - EENT Eyes: Present: PERRL - Respiratory Respiratory effort: normal Respiratory: bilateral: rhonchi - Cardiovascular Rhythm: regular (Vpaced) Heart Sounds: Present: S1 & S2 - Extremities Extremities: no ischemia, pulses intact, pulses symmetrical Extremity abnormal: edema - Peripheral Assessment Generalized Edema Type: Pitting Edema Degree: 2+ Capillary Refill: < 3 seconds Skin Temperature: Warm Peripheral Pulses: within normal limits - Abdominal General gastrointestinal: soft, non-distended, normal bowel sounds - Integumentary Integumentary: Present: warm, dry - Psychiatric Psychiatric: other (NICOLE- does not follow commands) - Neurologic Neurologic: other (NICOLE- does not follow commands) - Allied Health Allied health notes reviewed: nursing HEART Score - HEART Score Age: > 65 Risk factors: 1-2 risk factors Troponin: Troponin T 0.015 ng/mL (0.00-0.029) 10/18/21 11:30 Troponin: 1-3x normal limit - Critical Actions Critical Actions: 4-6 pts:12-16.6% risk of adverse cardiac event. Should be admitted Results - Labs CBC & Chem 7: 10/23/21 05:15 10/23/21 05:15 Labs: Laboratory Last Values WBC 19.0 K/mm3 (4.5-11.0) H 10/23/21 05:15 RBC 3.18 M/mm3 (3.65-5.03) L 10/23/21 05:15 Hgb 7.6 gm/dl (10.1-14.3) L 10/23/21 05:15 Hct 24.7 % (30.3-42.9) L 10/23/21 05:15 MCV 78 fl (79-97) L 10/23/21 05:15 MCH 24 pg (28-32) L 10/23/21 05:15 MCHC 31 % (30-34) 10/23/21 05:15 RDW 18.5 % (13.2-15.2) H 10/23/21 05:15 Plt Count 533 K/mm3 (140-440) H 10/23/21 05:15 Add Manual Diff Complete 10/22/21 04:30 Total Counted 100 10/22/21 04:30 Seg Neutrophils % Cutter Apprentice Hand 10/17/21 06:02 Seg Neuts % (Manual) 85.0 % (40.0-70.0) H 10/22/21 04:30 Band Neutrophils % 3.0 % 10/22/21 04:30 Lymphocytes % (Manual) 3.0 % (13.4-35.0) L 10/22/21 04:30 Reactive Lymphs % (Man) 0 % 10/22/21 04:30 Monocytes % (Manual) 2.0 % (0.0-7.3) 10/22/21 04:30 Eosinophils % (Manual) 0 % (0.0-4.3) 10/22/21 04:30 Basophils % (Manual) 0 % (0.0-1.8) 10/22/21 04:30 Metamyelocytes % 1.0 % 10/22/21 04:30 Myelocytes % 6.0 % 10/22/21 04:30 Promyelocytes % 0 % 10/22/21 04:30 Blast Cells % 0 % 10/22/21 04:30 Nucleated RBC % Not Reportable 10/22/21 04:30 Seg Neutrophils # Man 18.3 K/mm3 (1.8-7.7) H 10/22/21 04:30 Band Neutrophils # 0.6 K/mm3 10/22/21 04:30 Lymphocytes # (Manual) 0.6 K/mm3 (1.2-5.4) L 10/22/21 04:30 Abs React Lymphs (Man) 0.0 K/mm3 10/22/21 04:30 Monocytes # (Manual) 0.4 K/mm3 (0.0-0.8) 10/22/21 04:30 Eosinophils # (Manual) 0.0 K/mm3 (0.0-0.4) 10/22/21 04:30 Basophils # (Manual) 0.0 K/mm3 (0.0-0.1) 10/22/21 04:30 Metamyelocytes # 0.2 K/mm3 10/22/21 04:30 Myelocytes # 1.3 K/mm3 10/22/21 04:30 Promyelocytes # 0.0 K/mm3 10/22/21 04:30 Blast Cells # 0.0 K/mm3 10/22/21 04:30 WBC Morphology Not Reportable 10/22/21 04:30 Hypersegmented Neuts Not Reportable 10/22/21 04:30 Hyposegmented Neuts Not Reportable 10/22/21 04:30 Hypogranular Neuts Not Reportable 10/22/21 04:30 Smudge Cells Not Reportable 10/22/21 04:30 Toxic Granulation Not Reportable 10/22/21 04:30 Toxic Vacuolation Not Reportable 10/22/21 04:30 Dohle Bodies Not Reportable 10/22/21 04:30 Pelger-Huet Anomaly Not Reportable 10/22/21 04:30 Girma Rods Not Reportable 10/22/21 04:30 Platelet Estimate Consistent w auto 10/22/21 04:30 Clumped Platelets Not Reportable 10/22/21 04:30 Plt Clumps, EDTA Not Reportable 10/22/21 04:30 Large Platelets Not Reportable 10/22/21 04:30 Giant Platelets Not Reportable 10/22/21 04:30 Platelet Satelliting Not Reportable 10/22/21 04:30 Plt Morphology Comment Not Reportable 10/22/21 04:30 RBC Morphology Not Reportable 10/22/21 04:30 Dimorphic RBCs Not Reportable 10/22/21 04:30 Polychromasia Few 10/22/21 04:30 Hypochromasia 1+ 10/22/21 04:30 Poikilocytosis Not Reportable 10/22/21 04:30 Anisocytosis Not Reportable 10/22/21 04:30 Microcytosis Not Reportable 10/22/21 04:30 Macrocytosis Not Reportable 10/22/21 04:30 Spherocytes Not Reportable 10/22/21 04:30 Pappenheimer Bodies Not Reportable 10/22/21 04:30 Sickle Cells Not Reportable 10/22/21 04:30 Target Cells Rare 10/22/21 04:30 Tear Drop Cells Not Reportable 10/22/21 04:30 Ovalocytes Not Reportable 10/22/21 04:30 Helmet Cells Not Reportable 10/22/21 04:30 [place] Bodies Not Reportable 10/22/21 04:30 Lamar Rings Not Reportable 10/22/21 04:30 Revere Cells Not Reportable 10/22/21 04:30 Bite Cells Not Reportable 10/22/21 04:30 Crenated Cell Not Reportable 10/22/21 04:30 Elliptocytes Not Reportable 10/22/21 04:30 Acanthocytes (Spur) Not Reportable 10/22/21 04:30 Rouleaux Not Reportable 10/22/21 04:30 Hemoglobin C Crystals Not Reportable 10/22/21 04:30 Schistocytes Not Reportable 10/22/21 04:30 Malaria parasites Not Reportable 10/22/21 04:30 Brodie Bodies Not Reportable 10/22/21 04:30 Hem Pathologist Commnt No 10/22/21 04:30 PT 16.3 Sec. (12.2-14.9) H 10/20/21 18:05 INR 1.18 (0.87-1.13) H 10/20/21 18:05 APTT 38.0 Sec. (24.2-36.6) H 10/15/21 16:15 Fibrinogen 803 mg/dl (211-480) H 10/20/21 04:25 D-Dimer 1890.39 ng/mlDDU (0-234) H 10/23/21 05:15 Heparin Anti-Xa Level 0.63 U.I./ml (0.3-0.7) 10/22/21 12:40 ABG pH 7.336 pH Units (7.350-7.450) L 10/21/21 18:45 POC ABG pCO2 48.1 mmHg (32.0-48.0) H 10/18/21 09:00 ABG pCO2 49.3 mm Hg 10/21/21 18:45 POC ABG pO2 103.0 mmHg (83-108) 10/18/21 09:00 ABG pO2 83.5 mm Hg (80.0-90.0) 10/21/21 18:45 POC ABG HCO3 22.2 10/18/21 09:00 ABG HCO3 25.8 mmol/L (20.0-26.0) 10/21/21 18:45 ABG O2 Saturation 96.0 % (95.0-99.0) 10/21/21 18:45 ABG O2 Content 10.2 (0.0-44) 10/21/21 18:45 POC ABG Base Excess -4.3 10/18/21 09:00 ABG Base Excess -0.2 mmol/L (-2.0-3.0) 10/21/21 18:45 ABG Hemoglobin 7.6 gm/dl (12.0-16.0) L 10/21/21 18:45 ABG Oxyhemoglobin 95.4 (94-98) 10/18/21 09:00 ABG Carboxyhemoglobin 1.1 % (0.0-5.0) 10/21/21 18:45 ABG Methemoglobin 0.4 % (0.0-1.5) 10/21/21 18:45 ABG Sodium 136.8 mmol/L (136.0-145.0) 10/18/21 09:00 ABG Potassium 4.0 mmol/L (3.40-4.50) 10/18/21 09:00 ABG Chloride 104.0 mmol/L (98-107) 10/18/21 09:00 ABG Glucose 252 mg/dL (65-95) H 10/18/21 09:00 Oxyhemoglobin 94.6 % (95.0-99.0) L 10/21/21 18:45 Carboxyhemoglobin 1.3 (0.5-1.5) 10/18/21 09:00 FiO2 35 % 10/21/21 18:45 FiO2 % 50 10/18/21 09:00 Sodium 148 mmol/L (137-145) H 10/23/21 05:15 Potassium 5.1 mmol/L (3.6-5.0) H 10/23/21 05:15 Chloride 112.8 mmol/L (98-107) H 10/23/21 05:15 Carbon Dioxide 24 mmol/L (22-30) 10/23/21 05:15 Anion Gap 16 mmol/L 10/23/21 05:15 BUN 38 mg/dL (7-17) H 10/23/21 05:15 Creatinine 0.8 mg/dL (0.6-1.2) 10/23/21 05:15 Estimated GFR > 60 ml/min 10/23/21 05:15 BUN/Creatinine Ratio 48 % 10/23/21 05:15 Glucose 158 mg/dL (65-100) H 10/23/21 05:15 POC Glucose 235 mg/dL (70-105) H 10/23/21 11:26 Lactic Acid 1.20 mmol/L (0.7-2.0) 10/17/21 06:02 Calcium 9.2 mg/dL (8.4-10.2) 10/23/21 05:15 Phosphorus 2.40 mg/dL (2.5-4.5) L 10/23/21 05:15 Magnesium 1.90 mg/dL (1.7-2.3) 10/23/21 05:15 Iron 14 ug/dL (37-170) L 10/20/21 05:00 TIBC 138 mcg/dL (250-450) L 10/20/21 05:00 Ferritin 624.0 ng/mL (10.0-200.0) H 10/23/21 05:15 Total Bilirubin 0.20 mg/dL (0.1-1.2) 10/22/21 04:30 Direct Bilirubin 0.3 mg/dL (0-0.2) H 10/17/21 06:02 Indirect Bilirubin 0.1 mg/dL 10/17/21 06:02 AST 18 units/L (5-40) 10/22/21 04:30 ALT 5 units/L (7-56) L 10/22/21 04:30 Alkaline Phosphatase 69 units/L (35-129) 10/22/21 04:30 Ammonia 38.0 umol/L (25-60) 10/15/21 16:15 Lactate Dehydrogenase 329 units/L (91-180) H 10/23/21 05:15 Troponin T 0.015 ng/mL (0.00-0.029) 10/18/21 11:30 C-Reactive Protein 5.00 mg/dL (0.00-1.30) H 10/23/21 05:15 NT-Pro-B Natriuret Pep 6606 pg/mL (0-900) H 10/15/21 16:15 Total Protein 6.2 g/dL (6.3-8.2) L 10/22/21 04:30 Albumin 2.5 g/dL (3.9-5) L 10/22/21 04:30 Albumin/Globulin Ratio 0.7 % 10/22/21 04:30 Triglycerides 82 mg/dL (2-149) 10/19/21 02:40 Cholesterol 99 mg/dL (50-199) 10/15/21 18:00 LDL Cholesterol Direct 46 mg/dL (50-130) L 10/15/21 18:00 HDL Cholesterol 25 mg/dL (40-59) L 10/15/21 18:00 Cholesterol/HDL Ratio 3.96 % 10/15/21 18:00 Lipase 19 units/L (13-60) 10/15/21 16:15 Procalcitonin 39.51 ng/mL (<0.15) 10/16/21 23:31 Arterial Blood Glucose 252 mg/dL (65-95) H 10/18/21 09:00 Arterial Blood Ionized Calcium 4.7 mg/dL (4.6-5.3) 10/18/21 09:00 Urine Color Yellow (Yellow) 10/15/21 Unknown Urine Turbidity Cloudy (Clear) 10/15/21 Unknown Urine pH 5.0 (5.0-7.0) 10/15/21 Unknown Ur Specific [place] 1.016 (1.003-1.030) 10/15/21 Unknown Urine Protein >500 mg/dL (Negative) 10/15/21 Unknown Urine Glucose (UA) 50 mg/dL (Negative) 10/15/21 Unknown Urine Ketones Neg mg/dL (Negative) 10/15/21 Unknown Urine Blood Neg (Negative) 10/15/21 Unknown Urine Nitrite Neg (Negative) 10/15/21 Unknown Urine Bilirubin Neg (Negative) 10/15/21 Unknown Urine Urobilinogen < 2.0 mg/dL (<2.0) 10/15/21 Unknown Ur Leukocyte Esterase Neg (Negative) 10/15/21 Unknown Urine WBC (Auto) 5.0 /HPF (0.0-6.0) 10/15/21 Unknown Urine RBC (Auto) 2.0 /HPF (0.0-6.0) 10/15/21 Unknown U Epithel Cells (Auto) 2.0 /HPF (0-13.0) 10/15/21 Unknown Urine Bacteria (Auto) 1+ /HPF (Negative) 10/15/21 Unknown Calcium Oxalate Crystal 1+ 10/15/21 Unknown Amorphous Crystals 3+ 10/15/21 Unknown Urine Mucus Few /HPF 10/15/21 Unknown Urine Yeast (Budding) 1+ /HPF 10/15/21 Unknown Nasal Screen MRSA (PCR) Negative (Negative) 10/18/21 13:25 Salicylates < 0.3 mg/dL (2.8-20.0) L 10/15/21 16:15 Urine Opiates Screen Negative 10/15/21 Unknown Urine Methadone Screen Negative 10/15/21 Unknown Acetaminophen 5.0 ug/mL (10.0-30.0) L 10/15/21 16:15 Ur Barbiturates Screen Negative 10/15/21 Unknown Ur Phencyclidine Scrn Negative 10/15/21 Unknown Ur Amphetamines Screen Negative 10/15/21 Unknown U Benzodiazepines Scrn Negative 10/15/21 Unknown Urine Cocaine Screen Negative 10/15/21 Unknown U Marijuana (THC) Screen Negative 10/15/21 Unknown Drugs of Abuse Note Disclamer 10/15/21 Unknown Coronavirus (PCR) Positive (Negative) A 10/16/21 09:36 Blood Type A POSITIVE 10/21/21 08:35 Antibody Screen Negative 10/21/21 08:35 Crossmatch See Detail 10/21/21 08:35 Magallanes/IV: Voiding Method External Female Catheter Active Medications - Current Medications Current Medications: Generic Name Dose Route Start Last Admin Trade Name Freq PRN Reason Stop Dose Admin Acetaminophen 650 mg 10/16/21 00:57 10/16/21 21:51 Acetaminophen 325 Mg Tab PO 650 mg Q4H PRN Administration Pain MILD(1-3)/Fever >100.5/KEYS Lipase/Protease/Amylase 1 each 10/16/21 01:07 Lipase 10,500/Protease 25,000/Amylase 43,750 (Units) Dr Schuler FEEDTUBE PRN PRN For Clogged Feeding Tube Arformoterol Tartrate 15 mcg 10/21/21 20:00 10/23/21 10:43 Arformoterol 15 Mcg/2 Ml Nebu IH 15 mcg Q12HRT MUNA Administration Ascorbic Acid 500 mg 10/17/21 10:00 10/23/21 09:08 Ascorbic Acid 500 Mg Tab PO 500 mg QDAY MUNA Administration Budesonide 0.5 mg 10/21/21 20:00 10/23/21 10:42 Budesonide 0.5 Mg/2 Ml Nebu IH 0.5 mg Q12HRT MUNA Administration Cholecalciferol 5,000 unit 10/17/21 10:00 10/23/21 09:08 Cholecalciferol (Vit D3) 5,000 Unit Tab PO 5,000 unit DAILY MUNA Administration Dexamethasone 8 mg 10/16/21 20:00 10/23/21 09:08 Dexamethasone 4 Mg Tab FEEDTUBE 10/25/21 10:01 8 mg QDAY MUNA Administration Enoxaparin Sodium 60 mg 10/23/21 10:00 10/23/21 09:08 Enoxaparin 60 Mg/0.6 Ml Inj SUB-Q 60 mg DAILY MUNA Administration Famotidine 20 mg 10/17/21 22:00 10/23/21 09:08 Famotidine 20 Mg Tab FEEDTUBE 20 mg BID MUNA Administration Fentanyl 50 mcg 10/20/21 11:42 10/23/21 06:33 Fentanyl 100 Mcg/2 Ml Inj IV 50 mcg Q10MIN PRN Administration ANALGESIA Propofol 1,000 mg in 100 mls @ 1.633 mls/hr 10/15/21 16:00 10/20/21 19:22 Diprivan 10 Mg/Ml IV 0 mcg/kg/min TITR MUNA 0 mls/hr Titration Protocol 5 MCG/KG/MIN NORepinephrine/NS 8 MG-250 ML 8 mg in 250 mls @ 3.75 mls/hr 10/15/21 18:00 10/17/21 03:13 Norepinephrine/Ns 8 Mg-250 Ml (Double Conc) IV 1 mcg/min TITRATE MUNA 1.875 mls/hr Administration Protocol 2 MCG/MIN Fentanyl Citrate 2,000 mcg in 100 mls @ 2.75 mls/hr 10/20/21 12:00 10/22/21 12:00 Fentanyl Drip Premix IV 0 mcg/kg/hr TITR MUNA 0 mls/hr Titration Protocol 1 MCG/KG/HR Cefazolin Sodium 2 gm/ Sodium 100 mls @ 200 mls/hr 10/20/21 14:15 10/23/21 03:51 Chloride IV 10/25/21 02:44 200 mls/hr Q12H [facility] Administration Protocol Insulin Glargine 15 units 10/18/21 22:00 10/22/21 21:08 Insulin Glargine 100 Units/Ml SUB-Q 15 units QHS [facility] Administration Insulin Human Lispro 0 unit 10/16/21 09:00 10/23/21 12:47 Insulin Lispro 100 Unit/Ml SUB-Q 4 unit Q6HR [facility] Administration Protocol Levetiracetam 500 mg 10/16/21 11:00 10/23/21 09:08 Levetiracetam 500 Mg/5 Ml Oral Liqd PO 500 mg BID MUNA Administration Metoclopramide HCl 10 mg 10/16/21 01:02 Metoclopramide 10 Mg/2 Ml Inj IV Q6H PRN Nausea And Vomiting Ondansetron HCl 4 mg 10/16/21 00:57 Ondansetron 4 Mg/2 Ml Inj IV Q3H PRN Nausea And Vomiting Senna/Docusate Sodium 1 tab 10/16/21 22:00 10/22/21 21:07 Sennosides/Docusate Sodium 8.6/50 Mg Tab FEEDTUBE 1 tab QHS MUNA Administration Simple Syrup 15 ml 10/16/21 01:07 Simple Syrup 15 Ml FEEDTUBE PRN PRN Hypoglycemia Simple Syrup 30 ml 10/16/21 01:07 Simple Syrup 15 Ml FEEDTUBE PRN PRN Hypoglycemia Sodium Bicarbonate 325 mg 10/16/21 01:07 Sodium Bicarbonate 325 Mg Tab FEEDTUBE PRN PRN For Clogged Feeding Tube Sodium Chloride 10 ml 10/16/21 01:00 10/23/21 09:09 Sodium Chloride 0.9% 10 Ml Flush Syringe IV 10 ml BID MUNA Administration Sodium Chloride 10 ml 10/16/21 00:57 Sodium Chloride 0.9% 10 Ml Flush Syringe IV PRN PRN LINE FLUSH Sodium Chloride 5 ml 10/16/21 13:57 Sodium Chloride 0.9% 1000 Ml Iv Soln IV PRN PRN CVP Zinc Sulfate 220 mg 10/16/21 22:00 10/23/21 09:08 Zinc Sulfate 220 Mg Cap PO 220 mg BID MUNA Administration Nutrition/Malnutrition Assess - Dietary Evaluation Nutrition/Malnutrition Findings: Nutrition Notes Start: 10/16/21 10:33 Freq: Status: Active Protocol: Document 10/18/21 16:08 ANTIONE (Rec: 10/18/21 16:15 ANTIONE [id number]) Nutrition Notes Initial or Follow up Brief Note Current Diet TF-Promote @ 41 ml/hr (from L 10/16). Height 5 ft 5 in Weight 55 kg [place] Body Weight (kg) 56.81 BMI 20.1 Weight change and time frame No body weight change reported . Weight Status Appropriate Subjective/Other Information RD consult for routine F/U on TF tolerance. TF continues as prescribed, therefore, well tolerated. Percent of energy/protein needs met: Prescribed Promote @ 41 ml/hr provides for energy/protein needs (985 Kcal/62 g) during LOS, plus 43 Kcal from propofol. 100% Kcal; 93% AA. Current % PO Other Minimum of two criteria No #1 Nutrition Diagnosis Inadequate oral intake Diagnosis Progress(for reassessment Continues documentation) Nutrition Intervention Nutrition Support: Continue Promote @ 41 ml/hr. Flush: 30 ml water Q 4 hr, or as per MD. % RDI: 100% Kcal; 93% AA. Goal #1 Provide at least 75% of energy /protein needs through Enteral Feeding during LOS. Follow-Up By: 10/25/21 Additional Comments Continue monitoring TF tolerance and BM.
--- NOTE | 2021-10-23 13:45 | XRay Report ---
XR chest 1V ap INDICATION / CLINICAL INFORMATION: F/U COVID PNA. COMPARISON: 10/21/2021 FINDINGS: SUPPORT DEVICES: Esophageal temperature probe has been removed. Otherwise stable satisfactory positio roberta. HEART /PULMONARY VASCULATURE: Enlarged and pulmonary vasculature congestion, unchanged. LUNGS / PLEURA: Increased bibasilar airspace opacities with stable small left and increased trace rig ht pleural effusion. No pneumothorax. IMPRESSION: Increased trace right pleural effusion and bibasilar airspace disease. Signer Name: Nirav Millan MD Signed: 10/23/2021 1:40 PM Workstation Name: [id number]
--- NOTE | 2021-10-23 14:16 | Progress Note ---
Assessment and Plan - Patient Problems (1) Respiratory failure Current Visit: Yes Status: Acute Plan to address problem: Patient presented with respiratory failure, currently sedated, on the vent. There is no clinical or x-ray evidence of fluid overload or heart failure, there is some mild to moderate cardiomegaly on the chest x-ray, and echocardiogram is pending for left ventricular function assessment. The patient's chest x-ray does show a consolidation in the left lower lobe, consistent with acute pneumonia. COVID-19 test is positive. (2) Cardiac pacemaker Current Visit: Yes Status: Acute Plan to address problem: Patient has a dual-chamber pacemaker in situ, we will request old records including outpatient records to obtain details of her pacemaker and other previ ous cardiac work-up and interventions. Subjective Date of service: 10/23/21 Principal diagnosis: AHRF; Pneumonia; Septic shock; COVID-19 infection; CHF; DVT; NSTEMI Interval history: Patient is on the vent, sedated. No new cardiac events reported. On hydrotherapist, she has an unchanged, ventricular paced rhythm at 80. Objective Vital Signs Temp Pulse Pulse Pulse Pulse Resp Resp 10/23/21 12:20 80 20 10/23/21 11:57 98.4 F 10/23/21 11:00 80 17 10/23/21 10:48 99 H 100 H 18 10/23/21 10:30 80 36 H 10/23/21 10:00 80 24 10/23/21 09:30 80 20 10/23/21 09:00 80 21 10/23/21 08:30 80 19 10/23/21 08:13 80 18 10/23/21 08:00 80 18 10/23/21 07:33 98.1 F 10/23/21 07:30 80 16 10/23/21 07:00 80 17 10/23/21 06:30 80 27 H 10/23/21 06:00 80 27 H 10/23/21 05:30 80 25 H 10/23/21 05:01 80 13 10/23/21 04:45 80 16 10/23/21 04:41 89 21 10/23/21 04:30 80 16 10/23/21 04:15 80 17 10/23/21 04:00 80 80 17 10/23/21 03:45 80 18 10/23/21 03:39 98.4 F 01/17/22 03:30 80 17 10/23/21 03:15 80 18 10/23/21 03:00 80 18 10/23/21 02:45 80 17 10/23/21 02:30 80 18 10/23/21 02:15 80 19 10/23/21 02:00 80 18 10/23/21 01:45 80 19 10/23/21 01:30 80 19 10/23/21 01:15 80 22 10/23/21 01:00 80 18 10/23/21 00:45 80 18 10/23/21 00:30 80 20 10/23/21 00:15 80 18 10/23/21 00:00 98.8 F 80 80 16 10/22/21 23:52 80 18 10/22/21 23:45 80 19 10/22/21 23:30 80 18 10/22/21 23:15 80 15 10/22/21 23:00 80 19 10/22/21 22:45 80 18 10/22/21 22:30 80 18 10/22/21 22:15 80 18 10/22/21 22:00 80 18 10/22/21 21:45 80 18 10/22/21 21:30 80 20 10/22/21 21:15 80 17 10/22/21 21:00 80 19 10/22/21 20:45 80 18 10/22/21 20:35 80 10/22/21 20:30 80 18 10/22/21 20:15 80 18 10/22/21 20:08 84 10/22/21 20:03 80 19 10/22/21 20:00 98.6 F 80 19 10/22/21 19:56 80 16 10/22/21 19:45 80 20 10/22/21 19:30 80 20 10/22/21 19:15 80 17 10/22/21 19:00 80 18 10/22/21 18:45 80 19 10/22/21 18:30 80 17 10/22/21 18:15 80 18 10/22/21 18:00 80 18 10/22/21 17:45 80 19 10/22/21 17:31 80 17 10/22/21 17:30 80 16 10/22/21 17:15 80 17 01/16/22 17:00 80 13 10/22/21 16:45 80 16 10/22/21 16:30 80 17 10/22/21 16:15 80 14 10/22/21 16:00 80 80 17 10/22/21 15:45 80 16 10/22/21 15:30 80 16 10/22/21 15:15 80 16 10/22/21 15:00 80 16 10/22/21 14:45 80 16 10/22/21 14:30 80 16 Resp BP Pulse Ox 10/23/21 12:20 186/78 95 10/23/21 11:57 10/23/21 11:00 186/78 91 10/23/21 10:48 18 10/23/21 10:30 120/63 96 10/23/21 10:00 190/84 93 10/23/21 09:30 144/74 99 10/23/21 09:00 115/61 100 10/23/21 08:30 110/69 10/23/21 08:13 134/60 99 10/23/21 08:00 88/47 99 10/23/21 07:33 10/23/21 07:30 83/44 98 10/23/21 07:00 88/47 97 10/23/21 06:30 159/75 88 10/23/21 06:00 134/60 99 10/23/21 05:30 149/77 96 10/23/21 05:01 140/76 98 10/23/21 04:45 96/61 10/23/21 04:41 96/61 100 10/23/21 04:30 97/58 10/23/21 04:15 102/59 10/23/21 04:00 111/63 93 10/23/21 03:45 88/52 100 10/23/21 03:39 10/23/21 03:30 93/52 100 10/23/21 03:15 108/59 100 10/23/21 03:00 85/48 100 10/23/21 02:45 88/51 99 10/23/21 02:30 93/54 10/23/21 02:15 132/68 100 10/23/21 02:00 103/57 100 10/23/21 01:45 105/62 99 10/23/21 01:30 120/66 100 10/23/21 01:15 139/79 98 10/23/21 01:00 100/58 100 10/23/21 00:45 114/66 98 10/23/21 00:30 136/73 99 10/23/21 00:15 128/67 100 10/23/21 00:00 93/53 100 10/22/21 23:52 109/61 100 10/22/21 23:45 109/61 100 10/22/21 23:30 114/66 100 10/22/21 23:15 116/65 10/22/21 23:00 101/56 100 10/22/21 22:45 103/64 10/22/21 22:30 106/59 10/22/21 22:15 96/54 100 10/22/21 22:00 93/55 10/22/21 21:45 107/61 100 10/22/21 21:30 105/57 10/22/21 21:15 98/55 100 10/22/21 21:00 96/51 10/22/21 20:45 92/52 10/22/21 20:35 10/22/21 20:30 87/47 99 10/22/21 20:15 92/51 98 10/22/21 20:08 20 10/22/21 20:03 110/64 99 10/22/21 20:00 107/57 100 10/22/21 19:56 100 10/22/21 19:45 110/64 10/22/21 19:30 121/69 100 10/22/21 19:15 95/57 10/22/21 19:00 99/58 97 10/22/21 18:45 95/58 100 10/22/21 18:30 106/61 85 10/22/21 18:15 102/55 100 10/22/21 18:00 106/58 100 10/22/21 17:45 102/54 10/22/21 17:31 92/53 100 10/22/21 17:30 102/54 100 10/22/21 17:15 93/52 100 10/22/21 17:00 92/53 10/22/21 16:45 84/50 10/22/21 16:30 85/51 95 10/22/21 16:15 135/69 84 10/22/21 16:00 75/42 100 10/22/21 15:45 83/44 99 10/22/21 15:30 83/45 10/22/21 15:15 86/49 10/22/21 15:00 92/50 99 10/22/21 14:45 99/53 98 10/22/21 14:30 108/58 98 - Physical Examination Narrative exam: Full physical exam is deferred due to the patient's acute COVID infection. General: Other (Unresponsive, on the ventilator) HEENT: Positive: Other (Pupils fixed) Neck: Positive: neck supple, trachea midline Neuro: Positive: Other (Unresponsive, on the ventilator) Abdomen: Positive: Soft Skin: Positive: Clear Extremities: Absent: edema - Labs and Meds Cardiac Enzymes 10/23/21 Range/Units 05:15 Lactate Dehydrogenase 329 H (91-180) units/L CBC 10/23/21 Range/Units 05:15 WBC 19.0 H (4.5-11.0) K/mm3 RBC 3.18 L (3.65-5.03) M/mm3 Hgb 7.6 L (10.1-14.3) gm/dl Hct 24.7 L (30.3-42.9) % Plt Count 533 H (140-440) K/mm3 Comprehensive Metabolic Panel 10/23/21 Range/Units 05:15 Sodium 148 H (137-145) mmol/L Potassium 5.1 H (3.6-5.0) mmol/L Chloride 112.8 H (98-107) mmol/L Carbon Dioxide 24 (22-30) mmol/L BUN 38 H (7-17) mg/dL Creatinine 0.8 (0.6-1.2) mg/dL Glucose 158 H (65-100) mg/dL Calcium 9.2 (8.4-10.2) mg/dL Pacemaker: ventricular pacing w/capt - Allied health notes Allied health notes reviewed: nursing
--- NOTE | 2021-10-23 14:19 | Hem/Onc Progress Note ---
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 -- 1 unit RBC ordered on 10/21 but consent refused by son DATA REVIEWED BELOW IMP: Clotting tendency Chronic right leg DVT , new appearing bilateral lower extremity DVTs Transition from heparin gtt to daily Lovenox Anemia likely related to iron deficiency anemia with MCV 78 and low iron Received Ferrlicet Leukocytosis likely related to covid infection REC/PLAN: Daily Lovenox IV Ferrlicet 125mg Today Transfuse 1 unit RBC whenever hct <23 Laboratory Last Values WBC 19.0 K/mm3 (4.5-11.0) H 10/23/21 05:15 RBC 3.18 M/mm3 (3.65-5.03) L 10/23/21 05:15 Hgb 7.6 gm/dl (10.1-14.3) L 10/23/21 05:15 Hct 24.7 % (30.3-42.9) L 10/23/21 05:15 MCV 78 fl (79-97) L 10/23/21 05:15 MCH 24 pg (28-32) L 10/23/21 05:15 MCHC 31 % (30-34) 10/23/21 05:15 RDW 18.5 % (13.2-15.2) H 10/23/21 05:15 Plt Count 533 K/mm3 (140-440) H 10/23/21 05:15 Add Manual Diff Complete 10/22/21 04:30 Total Counted 100 10/22/21 04:30 Seg Neutrophils % [employer] 10/17/21 06:02 Seg Neuts % (Manual) 85.0 % (40.0-70.0) H 10/22/21 04:30 Band Neutrophils % 3.0 % 10/22/21 04:30 Lymphocytes % (Manual) 3.0 % (13.4-35.0) L 10/22/21 04:30 Reactive Lymphs % (Man) 0 % 10/22/21 04:30 Monocytes % (Manual) 2.0 % (0.0-7.3) 10/22/21 04:30 Eosinophils % (Manual) 0 % (0.0-4.3) 10/22/21 04:30 Basophils % (Manual) 0 % (0.0-1.8) 10/22/21 04:30 Metamyelocytes % 1.0 % 10/22/21 04:30 Myelocytes % 6.0 % 10/22/21 04:30 Promyelocytes % 0 % 10/22/21 04:30 Blast Cells % 0 % 10/22/21 04:30 Nucleated RBC % Not Reportable 10/22/21 04:30 Seg Neutrophils # Man 18.3 K/mm3 (1.8-7.7) H 10/22/21 04:30 Band Neutrophils # 0.6 K/mm3 10/22/21 04:30 Lymphocytes # (Manual) 0.6 K/mm3 (1.2-5.4) L 10/22/21 04:30 Abs React Lymphs (Man) 0.0 K/mm3 10/22/21 04:30 Monocytes # (Manual) 0.4 K/mm3 (0.0-0.8) 10/22/21 04:30 Eosinophils # (Manual) 0.0 K/mm3 (0.0-0.4) 10/22/21 04:30 Basophils # (Manual) 0.0 K/mm3 (0.0-0.1) 10/22/21 04:30 Metamyelocytes # 0.2 K/mm3 10/22/21 04:30 Myelocytes # 1.3 K/mm3 10/22/21 04:30 Promyelocytes # 0.0 K/mm3 10/22/21 04:30 Blast Cells # 0.0 K/mm3 10/22/21 04:30 WBC Morphology Not Reportable 10/22/21 04:30 Hypersegmented Neuts Not Reportable 10/22/21 04:30 Hyposegmented Neuts Not Reportable 10/22/21 04:30 Hypogranular Neuts Not Reportable 10/22/21 04:30 Smudge Cells Not Reportable 10/22/21 04:30 Toxic Granulation Not Reportable 10/22/21 04:30 Toxic Vacuolation Not Reportable 10/22/21 04:30 Dohle Bodies Not Reportable 10/22/21 04:30 Pelger-Huet Anomaly Not Reportable 10/22/21 04:30 Girma Rods Not Reportable 10/22/21 04:30 Platelet Estimate Consistent w auto 10/22/21 04:30 Clumped Platelets Not Reportable 10/22/21 04:30 Plt Clumps, EDTA Not Reportable 10/22/21 04:30 Large Platelets Not Reportable 10/22/21 04:30 Giant Platelets Not Reportable 10/22/21 04:30 Platelet Satelliting Not Reportable 10/22/21 04:30 Plt Morphology Comment Not Reportable 10/22/21 04:30 RBC Morphology Not Reportable 10/22/21 04:30 Dimorphic RBCs Not Reportable 10/22/21 04:30 Polychromasia Few 10/22/21 04:30 Hypochromasia 1+ 10/22/21 04:30 Poikilocytosis Not Reportable 10/22/21 04:30 Anisocytosis Not Reportable 10/22/21 04:30 Microcytosis Not Reportable 10/22/21 04:30 Macrocytosis Not Reportable 10/22/21 04:30 Spherocytes Not Reportable 10/22/21 04:30 Pappenheimer Bodies Not Reportable 10/22/21 04:30 Sickle Cells Not Reportable 10/22/21 04:30 Target Cells Rare 10/22/21 04:30 Tear Drop Cells Not Reportable 10/22/21 04:30 Ovalocytes Not Reportable 10/22/21 04:30 Helmet Cells Not Reportable 10/22/21 04:30 Vaz-[place]des[place] Bodies Not Reportable 10/22/21 04:30 [place] Rings Not Reportable 10/22/21 04:30 [place] Cells Not Reportable 10/22/21 04:30 Bite Cells Not Reportable 10/22/21 04:30 Crenated Cell Not Reportable 10/22/21 04:30 Elliptocytes Not Reportable 10/22/21 04:30 Acanthocytes (Spur) Not Reportable 10/22/21 04:30 Rouleaux Not Reportable 10/22/21 04:30 Hemoglobin C Crystals Not Reportable 10/22/21 04:30 Schistocytes Not Reportable 10/22/21 04:30 Malaria parasites Not Reportable 10/22/21 04:30 Brodie Bodies Not Reportable 10/22/21 04:30 Hem Pathologist Commnt No 10/22/21 04:30 PT 16.3 Sec. (12.2-14.9) H 10/20/21 18:05 INR 1.18 (0.87-1.13) H 10/20/21 18:05 APTT 38.0 Sec. (24.2-36.6) H 10/15/21 16:15 Fibrinogen 803 mg/dl (211-480) H 10/20/21 04:25 D-Dimer 1890.39 ng/mlDDU (0-234) H 10/23/21 05:15 Heparin Anti-Xa Level 0.63 U.I./ml (0.3-0.7) 10/22/21 12:40 ABG pH 7.336 pH Units (7.350-7.450) L 10/21/21 18:45 POC ABG pCO2 48.1 mmHg (32.0-48.0) H 10/18/21 09:00 ABG pCO2 49.3 mm Hg 10/21/21 18:45 POC ABG pO2 103.0 mmHg (83-108) 10/18/21 09:00 ABG pO2 83.5 mm Hg (80.0-90.0) 10/21/21 18:45 POC ABG HCO3 22.2 10/18/21 09:00 ABG HCO3 25.8 mmol/L (20.0-26.0) 10/21/21 18:45 ABG O2 Saturation 96.0 % (95.0-99.0) 10/21/21 18:45 ABG O2 Content 10.2 (0.0-44) 10/21/21 18:45 POC ABG Base Excess -4.3 10/18/21 09:00 ABG Base Excess -0.2 mmol/L (-2.0-3.0) 10/21/21 18:45 ABG Hemoglobin 7.6 gm/dl (12.0-16.0) L 10/21/21 18:45 ABG Oxyhemoglobin 95.4 (94-98) 10/18/21 09:00 ABG Carboxyhemoglobin 1.1 % (0.0-5.0) 10/21/21 18:45 ABG Methemoglobin 0.4 % (0.0-1.5) 10/21/21 18:45 ABG Sodium 136.8 mmol/L (136.0-145.0) 10/18/21 09:00 ABG Potassium 4.0 mmol/L (3.40-4.50) 10/18/21 09:00 ABG Chloride 104.0 mmol/L (98-107) 10/18/21 09:00 ABG Glucose 252 mg/dL (65-95) H 10/18/21 09:00 Oxyhemoglobin 94.6 % (95.0-99.0) L 10/21/21 18:45 Carboxyhemoglobin 1.3 (0.5-1.5) 10/18/21 09:00 FiO2 35 % 10/21/21 18:45 FiO2 % 50 10/18/21 09:00 Sodium 148 mmol/L (137-145) H 10/23/21 05:15 Potassium 5.1 mmol/L (3.6-5.0) H 10/23/21 05:15 Chloride 112.8 mmol/L (98-107) H 10/23/21 05:15 Carbon Dioxide 24 mmol/L (22-30) 10/23/21 05:15 Anion Gap 16 mmol/L 10/23/21 05:15 BUN 38 mg/dL (7-17) H 10/23/21 05:15 Creatinine 0.8 mg/dL (0.6-1.2) 10/23/21 05:15 Estimated GFR > 60 ml/min 10/23/21 05:15 BUN/Creatinine Ratio 48 % 10/23/21 05:15 Glucose 158 mg/dL (65-100) H 10/23/21 05:15 POC Glucose 235 mg/dL (70-105) H 10/23/21 11:26 Lactic Acid 1.20 mmol/L (0.7-2.0) 10/17/21 06:02 Calcium 9.2 mg/dL (8.4-10.2) 10/23/21 05:15 Phosphorus 2.40 mg/dL (2.5-4.5) L 10/23/21 05:15 Magnesium 1.90 mg/dL (1.7-2.3) 10/23/21 05:15 Iron 14 ug/dL (37-170) L 10/20/21 05:00 TIBC 138 mcg/dL (250-450) L 10/20/21 05:00 Ferritin 624.0 ng/mL (10.0-200.0) H 10/23/21 05:15 Total Bilirubin 0.20 mg/dL (0.1-1.2) 10/22/21 04:30 Direct Bilirubin 0.3 mg/dL (0-0.2) H 10/17/21 06:02 Indirect Bilirubin 0.1 mg/dL 10/17/21 06:02 AST 18 units/L (5-40) 10/22/21 04:30 ALT 5 units/L (7-56) L 10/22/21 04:30 Alkaline Phosphatase 69 units/L (35-129) 10/22/21 04:30 Ammonia 38.0 umol/L (25-60) 10/15/21 16:15 Lactate Dehydrogenase 329 units/L (91-180) H 10/23/21 05:15 Troponin T 0.015 ng/mL (0.00-0.029) 10/18/21 11:30 C-Reactive Protein 5.00 mg/dL (0.00-1.30) H 10/23/21 05:15 NT-Pro-B Natriuret Pep 6606 pg/mL (0-900) H 10/15/21 16:15 Total Protein 6.2 g/dL (6.3-8.2) L 10/22/21 04:30 Albumin 2.5 g/dL (3.9-5) L 10/22/21 04:30 Albumin/Globulin Ratio 0.7 % 10/22/21 04:30 Triglycerides 82 mg/dL (2-149) 10/19/21 02:40 Cholesterol 99 mg/dL (50-199) 10/15/21 18:00 LDL Cholesterol Direct 46 mg/dL (50-130) L 10/15/21 18:00 HDL Cholesterol 25 mg/dL (40-59) L 10/15/21 18:00 Cholesterol/HDL Ratio 3.96 % 10/15/21 18:00 Lipase 19 units/L (13-60) 10/15/21 16:15 Procalcitonin 39.51 ng/mL (<0.15) 10/16/21 23:31 Arterial Blood Glucose 252 mg/dL (65-95) H 10/18/21 09:00 Arterial Blood Ionized Calcium 4.7 mg/dL (4.6-5.3) 10/18/21 09:00 Urine Color Yellow (Yellow) 10/15/21 Unknown Urine Turbidity Cloudy (Clear) 10/15/21 Unknown Urine pH 5.0 (5.0-7.0) 10/15/21 Unknown Ur Specific [place] 1.016 (1.003-1.030) 10/15/21 Unknown Urine Protein >500 mg/dL (Negative) 10/15/21 Unknown Urine Glucose (UA) 50 mg/dL (Negative) 10/15/21 Unknown Urine Ketones Neg mg/dL (Negative) 10/15/21 Unknown Urine Blood Neg (Negative) 10/15/21 Unknown Urine Nitrite Neg (Negative) 10/15/21 Unknown Urine Bilirubin Neg (Negative) 10/15/21 Unknown Urine Urobilinogen < 2.0 mg/dL (<2.0) 10/15/21 Unknown Ur Leukocyte Esterase Neg (Negative) 10/15/21 Unknown Urine WBC (Auto) 5.0 /HPF (0.0-6.0) 10/15/21 Unknown Urine RBC (Auto) 2.0 /HPF (0.0-6.0) 10/15/21 Unknown U Epithel Cells (Auto) 2.0 /HPF (0-13.0) 10/15/21 Unknown Urine Bacteria (Auto) 1+ /HPF (Negative) 10/15/21 Unknown Calcium Oxalate Crystal 1+ 10/15/21 Unknown Amorphous Crystals 3+ 10/15/21 Unknown Urine Mucus Few /HPF 10/15/21 Unknown Urine Yeast (Budding) 1+ /HPF 10/15/21 Unknown Nasal Screen MRSA (PCR) Negative (Negative) 10/18/21 13:25 Salicylates < 0.3 mg/dL (2.8-20.0) L 10/15/21 16:15 Urine Opiates Screen Negative 10/15/21 Unknown Urine Methadone Screen Negative 10/15/21 Unknown Acetaminophen 5.0 ug/mL (10.0-30.0) L 10/15/21 16:15 Ur Barbiturates Screen Negative 10/15/21 Unknown Ur Phencyclidine Scrn Negative 10/15/21 Unknown Ur Amphetamines Screen Negative 10/15/21 Unknown U Benzodiazepines Scrn Negative 10/15/21 Unknown Urine Cocaine Screen Negative 10/15/21 Unknown U Marijuana (THC) Screen Negative 10/15/21 Unknown Drugs of Abuse Note Disclamer 10/15/21 Unknown Coronavirus (PCR) Positive (Negative) A 10/16/21 09:36 Blood Type A POSITIVE 10/21/21 08:35 Antibody Screen Negative 10/21/21 08:35 Crossmatch See Detail 10/21/21 08:35 Objective - Constitutional Vitals: Last Vital Signs Temp 98.4 F 10/23/21 11:57 Pulse 80 10/23/21 12:20 Resp 20 10/23/21 12:20 BP 186/78 10/23/21 12:20 Pulse Ox 95 10/23/21 12:20 - Labs Lab Results: Laboratory Results - last 24 hr 10/22/21 10/22/21 10/23/21 17:01 23:51 05:15 WBC 19.0 H RBC 3.18 L Hgb 7.6 L Hct 24.7 L MCV 78 L MCH 24 L MCHC 31 RDW 18.5 H Plt Count 533 H D-Dimer Sodium Potassium Chloride Carbon Dioxide Anion Gap BUN Creatinine Estimated GFR BUN/Creatinine Ratio Glucose POC Glucose 192 H 196 H Calcium Phosphorus Magnesium Ferritin Lactate Dehydrogenase C-Reactive Protein 10/23/21 10/23/21 10/23/21 05:15 05:15 05:15 WBC RBC Hgb Hct MCV MCH MCHC RDW Plt Count D-Dimer 1890.39 H Sodium 148 H Potassium 5.1 H Chloride 112.8 H Carbon Dioxide 24 Anion Gap 16 BUN 38 H Creatinine 0.8 Estimated GFR > 60 BUN/Creatinine Ratio 48 Glucose 158 H POC Glucose Calcium 9.2 Phosphorus 2.40 L Magnesium 1.90 Ferritin 624.0 H Lactate Dehydrogenase 329 H C-Reactive Protein 5.00 H 10/23/21 10/23/21 05:38 11:26 WBC RBC Hgb Hct MCV MCH MCHC RDW Plt Count D-Dimer Sodium Potassium Chloride Carbon Dioxide Anion Gap BUN Creatinine Estimated GFR BUN/Creatinine Ratio Glucose POC Glucose 149 H 235 H Calcium Phosphorus Magnesium Ferritin Lactate Dehydrogenase C-Reactive Protein Medications & Allergies - Medications Allergies/Adverse Reactions: Allergies lisinopril Allergy (Verified 10/16/21 12:24) Unknown Home Medications: Home Medications Medication Instructions Recorded Confirmed Last Taken Type Metformin HCl 1,000 mg PO BID 10/15/21 10/15/21 Unknown History Triamterene-Hctz 37.5-25 mg Cp 1 tab PO DAILY 10/15/21 10/15/21 Unknown History XARELTO (see DOAC order set to 2.5 mg PO BID 10/15/21 10/15/21 Unknown History order) levETIRAcetam [Keppra TAB] 1 tab PO BID 10/15/21 10/15/21 Unknown History Active Medications: Generic Name Dose Route Start Last Admin Trade Name Freq PRN Reason Stop Dose Admin Acetaminophen 650 mg 10/16/21 00:57 10/16/21 21:51 Acetaminophen 325 Mg Tab PO 650 mg Q4H PRN Administration Pain MILD(1-3)/Fever >100.5/KEYS Lipase/Protease/Amylase 1 each 10/16/21 01:07 Lipase 10,500/Protease 25,000/Amylase 43,750 (Units) Dr Schuler FEEDTUBE PRN PRN For Clogged Feeding Tube Arformoterol Tartrate 15 mcg 10/21/21 20:00 10/23/21 10:43 Arformoterol 15 Mcg/2 Ml Nebu IH 15 mcg Q12HRT MUNA Administration Ascorbic Acid 500 mg 10/17/21 10:00 10/23/21 09:08 Ascorbic Acid 500 Mg Tab PO 500 mg QDAY MUNA Administration Budesonide 0.5 mg 10/21/21 20:00 10/23/21 10:42 Budesonide 0.5 Mg/2 Ml Nebu IH 0.5 mg Q12HRT MUNA Administration Cholecalciferol 5,000 unit 10/17/21 10:00 10/23/21 09:08 Cholecalciferol (Vit D3) 5,000 Unit Tab PO 5,000 unit DAILY MUNA Administration Dexamethasone 8 mg 10/16/21 20:00 10/23/21 09:08 Dexamethasone 4 Mg Tab FEEDTUBE 10/25/21 10:01 8 mg QDAY MUNA Administration Enoxaparin Sodium 60 mg 10/23/21 10:00 10/23/21 09:08 Enoxaparin 60 Mg/0.6 Ml Inj SUB-Q 60 mg DAILY MUNA Administration Famotidine 20 mg 10/17/21 22:00 10/23/21 09:08 Famotidine 20 Mg Tab FEEDTUBE 20 mg BID MUNA Administration Fentanyl 50 mcg 10/20/21 11:42 10/23/21 06:33 Fentanyl 100 Mcg/2 Ml Inj IV 50 mcg Q10MIN PRN Administration ANALGESIA NORepinephrine/NS 8 MG-250 ML 8 mg in 250 mls @ 3.75 mls/hr 10/15/21 18:00 10/17/21 03:13 Norepinephrine/Ns 8 Mg-250 Ml (Double Conc) IV 1 mcg/min TITRATE MUNA 1.875 mls/hr Administration Protocol 2 MCG/MIN Fentanyl Citrate 2,000 mcg in 100 mls @ 2.75 mls/hr 10/20/21 12:00 10/22/21 12:00 Fentanyl Drip Premix IV 0 mcg/kg/hr TITR MUNA 0 mls/hr Titration Protocol 1 MCG/KG/HR Cefazolin Sodium 2 gm/ Sodium 100 mls @ 200 mls/hr 10/20/21 14:15 10/23/21 03:51 Chloride IV 10/25/21 02:44 200 mls/hr Q12H MUNA Administration Protocol Insulin Glargine 15 units 10/18/21 22:00 10/22/21 21:08 Insulin Glargine 100 Units/Ml SUB-Q 15 units QHS MUNA Administration Insulin Human Lispro 0 unit 10/16/21 09:00 10/23/21 12:47 Insulin Lispro 100 Unit/Ml SUB-Q 4 unit Q6HR MUNA Administration Protocol Levetiracetam 500 mg 10/16/21 11:00 10/23/21 09:08 Levetiracetam 500 Mg/5 Ml Oral Liqd PO 500 mg BID MUNA Administration Metoclopramide HCl 10 mg 10/16/21 01:02 Metoclopramide 10 Mg/2 Ml Inj IV Q6H PRN Nausea And Vomiting Ondansetron HCl 4 mg 10/16/21 00:57 Ondansetron 4 Mg/2 Ml Inj IV Q3H PRN Nausea And Vomiting Senna/Docusate Sodium 1 tab 10/16/21 22:00 10/22/21 21:07 Sennosides/Docusate Sodium 8.6/50 Mg Tab FEEDTUBE 1 tab QHS MUNA Administration Simple Syrup 15 ml 10/16/21 01:07 Simple Syrup 15 Ml FEEDTUBE PRN PRN Hypoglycemia Simple Syrup 30 ml 10/16/21 01:07 Simple Syrup 15 Ml FEEDTUBE PRN PRN Hypoglycemia Sodium Bicarbonate 325 mg 10/16/21 01:07 Sodium Bicarbonate 325 Mg Tab FEEDTUBE PRN PRN For Clogged Feeding Tube Sodium Chloride 10 ml 10/16/21 01:00 10/23/21 09:09 Sodium Chloride 0.9% 10 Ml Flush Syringe IV 10 ml BID MUNA Administration Sodium Chloride 10 ml 10/16/21 00:57 Sodium Chloride 0.9% 10 Ml Flush Syringe IV PRN PRN LINE FLUSH Sodium Chloride 5 ml 10/16/21 13:57 Sodium Chloride 0.9% 1000 Ml Iv Soln IV PRN PRN CVP Zinc Sulfate 220 mg 10/16/21 22:00 10/23/21 09:08 Zinc Sulfate 220 Mg Cap PO 220 mg BID MUNA Administration
[2021-10-23] MEDS ORDERED: SODIUM FERRIC GLUCON/SUCRO 125 MG in SODIUM CHLORIDE 0.9% 100 ML IV ONE (15:00)
--- NOTE | 2021-10-23 15:31 | Progress Note ---
Assessment and Plan Cultures: 10/15/2021 blood culture: no growth COVID-19 PCR: Positive 10/15/2021 sputum culture: Staph aureus 10/18/2021 MRSA nasal PCR: Negative A/P: 86-year-old female with hypertension, prior CVA, diabetes, CHF, indwelling cardiac device admitted with resp distress: #Severe sepsis with septic shock, likely secondary to bilateral pneumonia with possible aspiration pneumonia. Initial labs showed leukocytosis with WBC 17.2, D-dimer 7433, lactate of 5.6, proBNP 6606, CRP 25.9, ferritin 418.8. UA with no pyuria. Procalcitonin 39.5. Not a candidate for Actemra due to very high white count and procalcitonin with concern for superadded bacterial infection #COVID-19 pneumonia: COVID PCR positive. #Acute hypoxic respiratory failure: on the vent #CHF, indwelling cardiac device: BNP elevated. Cardiology on board. #Prior CVA Recs: -continue steroids x 10 days total, completed Remdesivir for COVID-19 -continue IV Ancef 2gm q12 hrs x 1 more days -guarded prognosis Yogi Maher MD, FACP, [facility] ([facility]) O: [phone] F: [phone] Subjective Date of service: 10/23/21 Principal diagnosis: AHRF; Pneumonia; Septic shock; COVID-19 infection; CHF; DVT; NSTEMI Interval history: No fever. Remains on the vent. Objective - Exam Narrative Exam: Physical Exam (reviewed in chart to minimize risk of transmission) Constitutional: deferred Head, Ears, Nose: deferred Eyes: deferred Neck: deferred Oral: deferred Cardiovascular: deferred Respiratory: deferred GI: deferred Musculoskeletal: deferred Skin: deferred Hem/Lymphatic: deferred Psych: deferred Neurological: deferred - Constitutional Vitals: Vital Signs Temp Pulse Resp BP Pulse Ox 98.4 F 80 19 79/43 100 10/23/21 11:57 10/23/21 14:30 10/23/21 14:30 10/23/21 14:30 10/23/21 14:30 Temperature -Last 24 Hours Temperature 98.4 F Temperature 98.1 F Temperature 98.4 F Temperature 98.8 F Temperature 98.6 F - Labs CBC & Chem 7: 10/23/21 05:15 10/23/21 05:15 Labs: Abnormal lab results 10/22/21 10/22/21 10/23/21 Range/Units 17:01 23:51 05:15 WBC 19.0 H (4.5-11.0) K/mm3 RBC 3.18 L (3.65-5.03) M/mm3 Hgb 7.6 L (10.1-14.3) gm/dl Hct 24.7 L (30.3-42.9) % MCV 78 L (79-97) fl MCH 24 L (28-32) pg RDW 18.5 H (13.2-15.2) % Plt Count 533 H (140-440) K/mm3 D-Dimer (0-234) ng/mlDDU Sodium (137-145) mmol/L Potassium (3.6-5.0) mmol/L Chloride (98-107) mmol/L BUN (7-17) mg/dL Glucose (65-100) mg/dL POC Glucose 192 H 196 H (70-105) mg/dL Phosphorus (2.5-4.5) mg/dL Ferritin (10.0-200.0) ng/mL Lactate Dehydrogenase (91-180) units/L C-Reactive Protein (0.00-1.30) mg/dL 10/23/21 10/23/21 10/23/21 Range/Units 05:15 05:15 05:15 WBC (4.5-11.0) K/mm3 RBC (3.65-5.03) M/mm3 Hgb (10.1-14.3) gm/dl Hct (30.3-42.9) % MCV (79-97) fl MCH (28-32) pg RDW (13.2-15.2) % Plt Count (140-440) K/mm3 D-Dimer 1890.39 H (0-234) ng/mlDDU Sodium 148 H (137-145) mmol/L Potassium 5.1 H (3.6-5.0) mmol/L Chloride 112.8 H (98-107) mmol/L BUN 38 H (7-17) mg/dL Glucose 158 H (65-100) mg/dL POC Glucose (70-105) mg/dL Phosphorus 2.40 L (2.5-4.5) mg/dL Ferritin 624.0 H (10.0-200.0) ng/mL Lactate Dehydrogenase 329 H (91-180) units/L C-Reactive Protein 5.00 H (0.00-1.30) mg/dL 10/23/21 10/23/21 Range/Units 05:38 11:26 WBC (4.5-11.0) K/mm3 RBC (3.65-5.03) M/mm3 Hgb (10.1-14.3) gm/dl Hct (30.3-42.9) % MCV (79-97) fl MCH (28-32) pg RDW (13.2-15.2) % Plt Count (140-440) K/mm3 D-Dimer (0-234) ng/mlDDU Sodium (137-145) mmol/L Potassium (3.6-5.0) mmol/L Chloride (98-107) mmol/L BUN (7-17) mg/dL Glucose (65-100) mg/dL POC Glucose 149 H 235 H (70-105) mg/dL Phosphorus (2.5-4.5) mg/dL Ferritin (10.0-200.0) ng/mL Lactate Dehydrogenase (91-180) units/L C-Reactive Protein (0.00-1.30) mg/dL
[2021-10-23] MEDS ORDERED: fentaNYL 100 MCG/2 ML INJ IV PRN (16:00)
--- NOTE | 2021-10-23 16:37 | Event Note ---
Date: 10/23/21 Notified by RN that patient's son wanted to speak with a provider. Placed a call and spoke with Patient's son, Fan Hermosillo at . He was updated on patient's condition and status. Patient's son voiced that patient has Alzheimers and does not understand [place], she will not follow commands in the hospital. He also voiced that patient does not do well in unfamiliar places, he would like to take her back home sooner than later so she can recover. He stated that he would like for patient to be extubated to regular oxygen and discharge back home. All risks of early extubation was thoroughly discussed with patient's son including the possibility of reintubation, he verbalized understanding of info given and would like to proceed with possible extubation. All questions and concerns were addressed at this time. Next of kin wishes discussed with CCM. Team will continue to f/u with patient's family with further updates.
[2021-10-23] MEDS: SENNOSIDES/DOCUSATE SODIUM 8.6/50 MG TAB FEEDTUBE SCH (21:02)
[2021-10-23] MEDS: INSULIN GLARGINE 100 UNITS/ML SUB-Q SCH (21:03)
[2021-10-24] MEDS: INSULIN LISPRO 100 UNIT/ML SUB-Q SCH ×5 (00:03→23:40)
[2021-10-24] MEDS: FREE WATER PO SCH ×6 (02:21→22:52)
[2021-10-24] MEDS: BUDESONIDE 0.5 MG/2 ML NEBU IH SCH ×3 (05:57→20:49)
[2021-10-24] MEDS: ARFORMOTEROL 15 MCG/2 ML NEBU IH SCH ×3 (05:57→20:49)
[2021-10-24 06:25] LABS: Hematocrit 21.1 % (30.3-42.9); Hemoglobin 6.4 gm/dl (10.1-14.3); Mean Corpuscular HGB Conc 31 % (30-34); Mean Corpuscular Volume 79 fl (79-97); Platelet Count 426 K/mm3 (140-440); Red Blood Count 2.67 M/mm3 (3.65-5.03); Red Cell Distribution Width 18.1 % (13.2-15.2)
[2021-10-24 06:49] LABS: Blood Urea Nitrogen 36 mg/dL (7-17); Calcium 8.8 mg/dL (8.4-10.2); Hemolysis Index 2
[2021-10-24 06:50] LABS: BUN/Creatinine Ratio 51
[2021-10-24] MEDS: DEXAMETHASONE 4 MG TAB FEEDTUBE SCH (09:23)
[2021-10-24] MEDS: ASCORBIC ACID 500 MG TAB PO SCH (09:23)
[2021-10-24] MEDS: levETIRAcetam 500 MG/5 ML ORAL LIQD PO SCH ×2 (09:23→22:41)
[2021-10-24] MEDS: FAMOTIDINE 20 MG TAB FEEDTUBE SCH ×2 (09:23→22:41)
[2021-10-24] MEDS: ZINC SULFATE 220 MG CAP PO SCH ×2 (09:23→22:42)
[2021-10-24] MEDS: CHOLECALCIFEROL (VIT D3) 5,000 UNIT TAB PO SCH (09:23)
--- NOTE | 2021-10-24 11:26 | Progress Note ---
Assessment and Plan - Patient Problems (1) Respiratory failure Current Visit: Yes Status: Acute Plan to address problem: Patient presented with respiratory failure, currently sedated, on the vent. There is no clinical or x-ray evidence of fluid overload or heart failure, there is some mild to moderate cardiomegaly on the chest x-ray, and echocardiogram is pending for left ventricular function assessment. The patient's chest x-ray does show a consolidation in the left lower lobe, consistent with acute pneumonia. COVID-19 test is positive. (2) Cardiac pacemaker Current Visit: Yes Status: Acute Plan to address problem: Patient has a dual-chamber pacemaker in situ, we will request old records including outpatient records to obtain details of her pacemaker and other previ ous cardiac work-up and interventions. Subjective Date of service: 10/24/21 Principal diagnosis: AHRF; Pneumonia; Septic shock; COVID-19 infection; CHF; DVT; NSTEMI Interval history: Patient sedated, on the vent. On hall monitor, there is a ventricular paced rhythm, unchanged at 79. Objective Vital Signs Temp Pulse Pulse Resp BP Pulse Ox 10/24/21 11:03 80 132/71 99 10/24/21 11:00 80 27 H 132/71 99 10/24/21 10:30 79 26 H 131/73 100 10/24/21 10:00 80 26 H 134/72 99 10/24/21 09:30 80 26 H 134/72 100 10/24/21 09:00 80 25 H 132/69 100 10/24/21 08:30 80 23 134/73 100 10/24/21 08:00 80 80 16 105/61 100 10/24/21 07:54 80 91/54 100 10/24/21 07:30 80 13 96/53 100 10/24/21 07:00 80 14 79/40 100 10/24/21 06:30 80 13 90/51 99 10/24/21 06:00 80 16 91/46 99 10/24/21 05:30 79 15 89/48 99 10/24/21 05:00 80 22 136/68 97 10/24/21 04:30 86 22 162/90 83 L 10/24/21 04:08 80 20 119/65 99 10/24/21 04:00 97.9 F 80 80 24 119/65 99 10/24/21 03:30 80 23 136/69 99 10/24/21 03:23 80 10/24/21 03:00 80 24 155/76 99 10/24/21 02:30 80 26 H 148/100 89 10/24/21 02:00 80 24 153/78 99 10/24/21 01:30 80 26 H 135/80 99 10/24/21 01:00 80 16 121/70 99 10/24/21 00:30 80 16 87/53 100 10/24/21 00:00 97.7 F 80 16 82/46 100 10/23/21 23:53 80 16 99 10/23/21 23:50 80 10/23/21 23:44 80 16 111/64 100 10/23/21 23:30 80 13 111/64 98 10/23/21 23:00 80 16 93/52 99 10/23/21 22:30 80 17 101/54 98 10/23/21 22:00 80 18 111/60 98 10/23/21 21:30 80 21 120/61 99 10/23/21 21:00 80 15 157/73 98 10/23/21 20:30 80 24 142/68 98 10/23/21 20:05 80 103/54 99 10/23/21 20:00 98.4 F 80 21 103/54 98 10/23/21 19:53 80 21 99 10/23/21 19:30 80 22 129/66 100 10/23/21 19:00 80 16 129/67 100 10/23/21 18:30 80 24 116/68 100 10/23/21 18:00 80 22 130/73 100 10/23/21 17:30 80 24 139/78 100 10/23/21 17:00 80 25 H 140/83 100 10/23/21 16:30 80 21 140/80 100 10/23/21 16:17 80 18 118/69 99 10/23/21 16:00 98.4 F 80 80 18 118/69 100 10/23/21 15:30 80 21 142/80 100 10/23/21 15:00 80 20 107/61 100 10/23/21 14:30 80 19 79/43 100 10/23/21 14:00 80 18 88/52 98 10/23/21 13:30 80 19 86/49 100 10/23/21 13:00 80 21 96/50 98 10/23/21 12:30 80 23 127/66 99 10/23/21 12:20 80 20 186/78 95 10/23/21 12:00 80 80 25 H 121/58 100 10/23/21 11:57 98.4 F 10/23/21 11:30 80 26 H 133/60 94 - Physical Examination General: Other (Unresponsive, on the ventilator) HEENT: Positive: Other (Pupils fixed) Neck: Positive: neck supple, trachea midline Cardiac: Positive: Irregularly Regular Lungs: Positive: Decreased Breath Sounds Neuro: Positive: Other (Unresponsive, on the ventilator) Abdomen: Positive: Soft Skin: Positive: Clear Extremities: Absent: edema - Labs and Meds CBC 10/24/21 Range/Units 06:05 WBC 17.0 H (4.5-11.0) K/mm3 RBC 2.67 L (3.65-5.03) M/mm3 Hgb 6.4 L (10.1-14.3) gm/dl Hct 21.1 L (30.3-42.9) % Plt Count 426 (140-440) K/mm3 Comprehensive Metabolic Panel 10/24/21 Range/Units 06:05 Sodium 147 H (137-145) mmol/L Potassium 4.2 (3.6-5.0) mmol/L Chloride 109.7 H (98-107) mmol/L Carbon Dioxide 28 (22-30) mmol/L BUN 36 H (7-17) mg/dL Creatinine 0.7 (0.6-1.2) mg/dL Glucose 209 H (65-100) mg/dL Calcium 8.8 (8.4-10.2) mg/dL Pacemaker: ventricular pacing w/capt - Allied health notes Allied health notes reviewed: nursing
[2021-10-24 13:05] LABS: ABG Base Excess 4.9 mmol/L (-2.0-3.0); ABG HCO3 30.6 mmol/L (20.0-26.0); ABG Methemoglobin 0.5 % (0.0-1.5); ABG Oxygen Saturation 97.8 % (95.0-99.0); ABG PCO2 51.7 mm Hg; ABG PH 7.39 pH Units (7.350-7.450); ABG PO2 111.3 mm Hg (80.0-90.0)
[2021-10-24] MEDS ORDERED: SODIUM CHLORIDE 0.9% 500 ML 500 ML IV SCH (13:37)
--- NOTE | 2021-10-24 13:37 | Hem/Onc Progress Note ---
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 at home -- 1 unit RBC ordered on 10/21 but consent refused by son DATA REVIEWED BELOW IMP: Clotting tendency Chronic right leg DVT , new appearing bilateral lower extremity DVTs Transition from heparin gtt to daily Lovenox Anemia likely related to iron deficiency anemia with MCV 78 and low iron Received Ferrlicet x2 Leukocytosis likely related to covid infection REC/PLAN: If consented, transfuse 1 unit RBC today Daily Lovenox Transfuse 1 unit RBC whenever hct <23 Laboratory Last Values WBC 17.0 K/mm3 (4.5-11.0) H 10/24/21 06:05 RBC 2.67 M/mm3 (3.65-5.03) L 10/24/21 06:05 Hgb 6.4 gm/dl (10.1-14.3) L 10/24/21 06:05 Hct 21.1 % (30.3-42.9) L 10/24/21 06:05 MCV 79 fl (79-97) 10/24/21 06:05 MCH 24 pg (28-32) L 10/24/21 06:05 MCHC 31 % (30-34) 10/24/21 06:05 RDW 18.1 % (13.2-15.2) H 10/24/21 06:05 Plt Count 426 K/mm3 (140-440) 10/24/21 06:05 Add Manual Diff Complete 10/22/21 04:30 Total Counted 100 10/22/21 04:30 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 10/17/21 06:02 Seg Neuts % (Manual) 85.0 % (40.0-70.0) H 10/22/21 04:30 Band Neutrophils % 3.0 % 10/22/21 04:30 Lymphocytes % (Manual) 3.0 % (13.4-35.0) L 10/22/21 04:30 Reactive Lymphs % (Man) 0 % 10/22/21 04:30 Monocytes % (Manual) 2.0 % (0.0-7.3) 10/22/21 04:30 Eosinophils % (Manual) 0 % (0.0-4.3) 10/22/21 04:30 Basophils % (Manual) 0 % (0.0-1.8) 10/22/21 04:30 Metamyelocytes % 1.0 % 10/22/21 04:30 Myelocytes % 6.0 % 10/22/21 04:30 Promyelocytes % 0 % 10/22/21 04:30 Blast Cells % 0 % 10/22/21 04:30 Nucleated RBC % Not Reportable 10/22/21 04:30 Seg Neutrophils # Man 18.3 K/mm3 (1.8-7.7) H 10/22/21 04:30 Band Neutrophils # 0.6 K/mm3 10/22/21 04:30 Lymphocytes # (Manual) 0.6 K/mm3 (1.2-5.4) L 10/22/21 04:30 Abs React Lymphs (Man) 0.0 K/mm3 10/22/21 04:30 Monocytes # (Manual) 0.4 K/mm3 (0.0-0.8) 10/22/21 04:30 Eosinophils # (Manual) 0.0 K/mm3 (0.0-0.4) 10/22/21 04:30 Basophils # (Manual) 0.0 K/mm3 (0.0-0.1) 10/22/21 04:30 Metamyelocytes # 0.2 K/mm3 10/22/21 04:30 Myelocytes # 1.3 K/mm3 10/22/21 04:30 Promyelocytes # 0.0 K/mm3 10/22/21 04:30 Blast Cells # 0.0 K/mm3 10/22/21 04:30 WBC Morphology Not Reportable 10/22/21 04:30 Hypersegmented Neuts Not Reportable 10/22/21 04:30 Hyposegmented Neuts Not Reportable 10/22/21 04:30 Hypogranular Neuts Not Reportable 10/22/21 04:30 Smudge Cells Not Reportable 10/22/21 04:30 Toxic Granulation Not Reportable 10/22/21 04:30 Toxic Vacuolation Not Reportable 10/22/21 04:30 Dohle Bodies Not Reportable 10/22/21 04:30 Pelger-Huet Anomaly Not Reportable 10/22/21 04:30 Girma Rods Not Reportable 10/22/21 04:30 Platelet Estimate Consistent w auto 10/22/21 04:30 Clumped Platelets Not Reportable 10/22/21 04:30 Plt Clumps, EDTA Not Reportable 10/22/21 04:30 Large Platelets Not Reportable 10/22/21 04:30 Giant Platelets Not Reportable 10/22/21 04:30 Platelet Satelliting Not Reportable 10/22/21 04:30 Plt Morphology Comment Not Reportable 10/22/21 04:30 RBC Morphology Not Reportable 10/22/21 04:30 Dimorphic RBCs Not Reportable 10/22/21 04:30 Polychromasia Few 10/22/21 04:30 Hypochromasia 1+ 10/22/21 04:30 Poikilocytosis Not Reportable 10/22/21 04:30 Anisocytosis Not Reportable 10/22/21 04:30 Microcytosis Not Reportable 10/22/21 04:30 Macrocytosis Not Reportable 10/22/21 04:30 Spherocytes Not Reportable 10/22/21 04:30 Pappenheimer Bodies Not Reportable 10/22/21 04:30 Sickle Cells Not Reportable 10/22/21 04:30 Target Cells Rare 10/22/21 04:30 Tear Drop Cells Not Reportable 10/22/21 04:30 Ovalocytes Not Reportable 10/22/21 04:30 Helmet Cells Not Reportable 10/22/21 04:30 [place] Bodies Not Reportable 10/22/21 04:30 [place] Rings Not Reportable 10/22/21 04:30 [place] Cells Not Reportable 10/22/21 04:30 Bite Cells Not Reportable 10/22/21 04:30 Crenated Cell Not Reportable 10/22/21 04:30 Elliptocytes Not Reportable 10/22/21 04:30 Acanthocytes (Spur) Not Reportable 10/22/21 04:30 Rouleaux Not Reportable 10/22/21 04:30 Hemoglobin C Crystals Not Reportable 10/22/21 04:30 Schistocytes Not Reportable 10/22/21 04:30 Malaria parasites Not Reportable 10/22/21 04:30 Brodie Bodies Not Reportable 10/22/21 04:30 Hem Pathologist Commnt No 10/22/21 04:30 PT 16.3 Sec. (12.2-14.9) H 10/20/21 18:05 INR 1.18 (0.87-1.13) H 10/20/21 18:05 APTT 38.0 Sec. (24.2-36.6) H 10/15/21 16:15 Fibrinogen 803 mg/dl (211-480) H 10/20/21 04:25 D-Dimer 1890.39 ng/mlDDU (0-234) H 10/23/21 05:15 Heparin Anti-Xa Level 0.63 U.I./ml (0.3-0.7) 10/22/21 12:40 ABG pH 7.390 pH Units (7.350-7.450) 10/24/21 12:30 POC ABG pCO2 48.1 mmHg (32.0-48.0) H 10/18/21 09:00 ABG pCO2 51.7 mm Hg 10/24/21 12:30 POC ABG pO2 103.0 mmHg (83-108) 10/18/21 09:00 ABG pO2 111.3 mm Hg (80.0-90.0) H 10/24/21 12:30 POC ABG HCO3 22.2 10/18/21 09:00 ABG HCO3 30.6 mmol/L (20.0-26.0) H 10/24/21 12:30 ABG O2 Saturation 97.8 % (95.0-99.0) 10/24/21 12:30 ABG O2 Content 12.4 (0.0-44) 10/24/21 12:30 POC ABG Base Excess -4.3 10/18/21 09:00 ABG Base Excess 4.9 mmol/L (-2.0-3.0) H 10/24/21 12:30 ABG Hemoglobin 9.0 gm/dl (12.0-16.0) L 10/24/21 12:30 ABG Oxyhemoglobin 95.4 (94-98) 10/18/21 09:00 ABG Carboxyhemoglobin 0.9 % (0.0-5.0) 10/24/21 12:30 ABG Methemoglobin 0.5 % (0.0-1.5) 10/24/21 12:30 ABG Sodium 136.8 mmol/L (136.0-145.0) 10/18/21 09:00 ABG Potassium 4.0 mmol/L (3.40-4.50) 10/18/21 09:00 ABG Chloride 104.0 mmol/L (98-107) 10/18/21 09:00 ABG Glucose 252 mg/dL (65-95) H 10/18/21 09:00 Oxyhemoglobin 96.5 % (95.0-99.0) 10/24/21 12:30 Carboxyhemoglobin 1.3 (0.5-1.5) 10/18/21 09:00 FiO2 50 % 10/24/21 12:30 FiO2 % 50 10/18/21 09:00 Sodium 147 mmol/L (137-145) H 10/24/21 06:05 Potassium 4.2 mmol/L (3.6-5.0) 10/24/21 06:05 Chloride 109.7 mmol/L (98-107) H 10/24/21 06:05 Carbon Dioxide 28 mmol/L (22-30) 10/24/21 06:05 Anion Gap 14 mmol/L 10/24/21 06:05 BUN 36 mg/dL (7-17) H 10/24/21 06:05 Creatinine 0.7 mg/dL (0.6-1.2) 10/24/21 06:05 Estimated GFR > 60 ml/min 10/24/21 06:05 BUN/Creatinine Ratio 51 % 10/24/21 06:05 Glucose 209 mg/dL (65-100) H 10/24/21 06:05 POC Glucose 154 mg/dL (70-105) H 10/24/21 12:01 Lactic Acid 1.20 mmol/L (0.7-2.0) 10/17/21 06:02 Calcium 8.8 mg/dL (8.4-10.2) 10/24/21 06:05 Phosphorus 2.40 mg/dL (2.5-4.5) L 10/23/21 05:15 Magnesium 1.90 mg/dL (1.7-2.3) 10/23/21 05:15 Iron 14 ug/dL (37-170) L 10/20/21 05:00 TIBC 138 mcg/dL (250-450) L 10/20/21 05:00 Ferritin 624.0 ng/mL (10.0-200.0) H 10/23/21 05:15 Total Bilirubin 0.20 mg/dL (0.1-1.2) 10/22/21 04:30 Direct Bilirubin 0.3 mg/dL (0-0.2) H 10/17/21 06:02 Indirect Bilirubin 0.1 mg/dL 10/17/21 06:02 AST 18 units/L (5-40) 10/22/21 04:30 ALT 5 units/L (7-56) L 10/22/21 04:30 Alkaline Phosphatase 69 units/L (35-129) 10/22/21 04:30 Ammonia 38.0 umol/L (25-60) 10/15/21 16:15 Lactate Dehydrogenase 329 units/L (91-180) H 10/23/21 05:15 Troponin T 0.015 ng/mL (0.00-0.029) 10/18/21 11:30 C-Reactive Protein 5.00 mg/dL (0.00-1.30) H 10/23/21 05:15 NT-Pro-B Natriuret Pep 6606 pg/mL (0-900) H 10/15/21 16:15 Total Protein 6.2 g/dL (6.3-8.2) L 10/22/21 04:30 Albumin 2.5 g/dL (3.9-5) L 10/22/21 04:30 Albumin/Globulin Ratio 0.7 % 10/22/21 04:30 Triglycerides 82 mg/dL (2-149) 10/19/21 02:40 Cholesterol 99 mg/dL (50-199) 10/15/21 18:00 LDL Cholesterol Direct 46 mg/dL (50-130) L 10/15/21 18:00 HDL Cholesterol 25 mg/dL (40-59) L 10/15/21 18:00 Cholesterol/HDL Ratio 3.96 % 10/15/21 18:00 Lipase 19 units/L (13-60) 10/15/21 16:15 Procalcitonin 39.51 ng/mL (<0.15) 10/16/21 23:31 Arterial Blood Glucose 252 mg/dL (65-95) H 10/18/21 09:00 Arterial Blood Ionized Calcium 4.7 mg/dL (4.6-5.3) 10/18/21 09:00 Urine Color Yellow (Yellow) 10/15/21 Unknown Urine Turbidity Cloudy (Clear) 10/15/21 Unknown Urine pH 5.0 (5.0-7.0) 10/15/21 Unknown Ur Specific [place] 1.016 (1.003-1.030) 10/15/21 Unknown Urine Protein >500 mg/dL (Negative) 10/15/21 Unknown Urine Glucose (UA) 50 mg/dL (Negative) 10/15/21 Unknown Urine Ketones Neg mg/dL (Negative) 10/15/21 Unknown Urine Blood Neg (Negative) 10/15/21 Unknown Urine Nitrite Neg (Negative) 10/15/21 Unknown Urine Bilirubin Neg (Negative) 10/15/21 Unknown Urine Urobilinogen < 2.0 mg/dL (<2.0) 10/15/21 Unknown Ur Leukocyte Esterase Neg (Negative) 10/15/21 Unknown Urine WBC (Auto) 5.0 /HPF (0.0-6.0) 10/15/21 Unknown Urine RBC (Auto) 2.0 /HPF (0.0-6.0) 10/15/21 Unknown U Epithel Cells (Auto) 2.0 /HPF (0-13.0) 10/15/21 Unknown Urine Bacteria (Auto) 1+ /HPF (Negative) 10/15/21 Unknown Calcium Oxalate Crystal 1+ 10/15/21 Unknown Amorphous Crystals 3+ 10/15/21 Unknown Urine Mucus Few /HPF 10/15/21 Unknown Urine Yeast (Budding) 1+ /HPF 10/15/21 Unknown Nasal Screen MRSA (PCR) Negative (Negative) 10/18/21 13:25 Salicylates < 0.3 mg/dL (2.8-20.0) L 10/15/21 16:15 Urine Opiates Screen Negative 10/15/21 Unknown Urine Methadone Screen Negative 10/15/21 Unknown Acetaminophen 5.0 ug/mL (10.0-30.0) L 10/15/21 16:15 Ur Barbiturates Screen Negative 10/15/21 Unknown Ur Phencyclidine Scrn Negative 10/15/21 Unknown Ur Amphetamines Screen Negative 10/15/21 Unknown U Benzodiazepines Scrn Negative 10/15/21 Unknown Urine Cocaine Screen Negative 10/15/21 Unknown U Marijuana (THC) Screen Negative 10/15/21 Unknown Drugs of Abuse Note Disclamer 10/15/21 Unknown Coronavirus (PCR) Positive (Negative) A 10/16/21 09:36 Blood Type A POSITIVE 10/21/21 08:35 Antibody Screen Negative 10/21/21 08:35 Crossmatch See Detail 10/21/21 08:35 Objective - Constitutional Vitals: Last Vital Signs Temp 97.9 F 10/24/21 04:00 Pulse 80 10/24/21 11:03 Resp 27 H 10/24/21 11:00 BP 132/71 10/24/21 11:03 Pulse Ox 99 10/24/21 11:03 - Labs Lab Results: Laboratory Results - last 24 hr 10/21/21 10/23/21 10/23/21 08:35 15:54 23:35 WBC RBC Hgb Hct MCV MCH MCHC RDW Plt Count ABG pH ABG pCO2 ABG pO2 ABG HCO3 ABG O2 Saturation ABG O2 Content ABG Base Excess ABG Hemoglobin ABG Carboxyhemoglobin ABG Methemoglobin Oxyhemoglobin FiO2 Sodium Potassium Chloride Carbon Dioxide Anion Gap BUN Creatinine Estimated GFR BUN/Creatinine Ratio Glucose POC Glucose 222 H 176 H Calcium Crossmatch See Detail 10/24/21 10/24/21 10/24/21 05:23 06:05 06:05 WBC 17.0 H RBC 2.67 L Hgb 6.4 L Hct 21.1 L MCV 79 MCH 24 L MCHC 31 RDW 18.1 H Plt Count 426 ABG pH ABG pCO2 ABG pO2 ABG HCO3 ABG O2 Saturation ABG O2 Content ABG Base Excess ABG Hemoglobin ABG Carboxyhemoglobin ABG Methemoglobin Oxyhemoglobin FiO2 Sodium 147 H Potassium 4.2 Chloride 109.7 H Carbon Dioxide 28 Anion Gap 14 BUN 36 H Creatinine 0.7 Estimated GFR > 60 BUN/Creatinine Ratio 51 Glucose 209 H POC Glucose 202 H Calcium 8.8 Crossmatch 10/24/21 10/24/21 12:01 12:30 WBC RBC Hgb Hct MCV MCH MCHC RDW Plt Count ABG pH 7.390 ABG pCO2 51.7 ABG pO2 111.3 H ABG HCO3 30.6 H ABG O2 Saturation 97.8 ABG O2 Content 12.4 ABG Base Excess 4.9 H ABG Hemoglobin 9.0 L ABG Carboxyhemoglobin 0.9 ABG Methemoglobin 0.5 Oxyhemoglobin 96.5 FiO2 50 Sodium Potassium Chloride Carbon Dioxide Anion Gap BUN Creatinine Estimated GFR BUN/Creatinine Ratio Glucose POC Glucose 154 H Calcium Crossmatch Medications & Allergies - Medications Allergies/Adverse Reactions: Allergies lisinopril Allergy (Verified 10/16/21 12:24) Unknown Home Medications: Home Medications Medication Instructions Recorded Confirmed Last Taken Type Metformin HCl 1,000 mg PO BID 10/15/21 10/15/21 Unknown History Triamterene-Hctz 37.5-25 mg Cp 1 tab PO DAILY 10/15/21 10/15/21 Unknown History XARELTO (see DOAC order set to 2.5 mg PO BID 10/15/21 10/15/21 Unknown History order) levETIRAcetam [Keppra TAB] 1 tab PO BID 10/15/21 10/15/21 Unknown History Active Medications: Generic Name Dose Route Start Last Admin Trade Name Freq PRN Reason Stop Dose Admin Acetaminophen 650 mg 10/16/21 00:57 10/16/21 21:51 Acetaminophen 325 Mg Tab PO 650 mg Q4H PRN Administration Pain MILD(1-3)/Fever >100.5/KEYS Lipase/Protease/Amylase 1 each 10/16/21 01:07 Lipase 10,500/Protease 25,000/Amylase 43,750 (Units) Dr Schuler FEEDTUBE PRN PRN For Clogged Feeding Tube Arformoterol Tartrate 15 mcg 10/21/21 20:00 10/24/21 08:02 Arformoterol 15 Mcg/2 Ml Nebu IH Not Given Q12HRT [facility] Ascorbic Acid 500 mg 10/17/21 10:00 10/24/21 09:23 Ascorbic Acid 500 Mg Tab PO 500 mg QDAY MUNA Administration Budesonide 0.5 mg 10/21/21 20:00 10/24/21 05:57 Budesonide 0.5 Mg/2 Ml Nebu IH Not Given Q12HRT [facility] Cholecalciferol 5,000 unit 10/17/21 10:00 10/24/21 09:23 Cholecalciferol (Vit D3) 5,000 Unit Tab PO 5,000 unit DAILY MUNA Administration Dexamethasone 8 mg 10/16/21 20:00 10/24/21 09:23 Dexamethasone 4 Mg Tab FEEDTUBE 10/25/21 10:01 8 mg QDAY MUNA Administration Famotidine 20 mg 10/17/21 22:00 10/24/21 09:23 Famotidine 20 Mg Tab FEEDTUBE 20 mg BID MUNA Administration Cefazolin Sodium 2 gm/ Sodium 100 mls @ 200 mls/hr 10/20/21 14:15 10/24/21 02:20 Chloride IV 10/25/21 02:44 200 mls/hr Q12H [facility] Administration Protocol Insulin Glargine 20 units 10/24/21 22:00 Insulin Glargine 100 Units/Ml SUB-Q QHS MUNA Insulin Human Lispro 0 unit 10/16/21 09:00 10/24/21 05:41 Insulin Lispro 100 Unit/Ml SUB-Q 4 unit Q6HR [facility] Administration Protocol Levetiracetam 500 mg 10/16/21 11:00 10/24/21 09:23 Levetiracetam 500 Mg/5 Ml Oral Liqd PO 500 mg BID MUNA Administration Metoclopramide HCl 10 mg 10/16/21 01:02 Metoclopramide 10 Mg/2 Ml Inj IV Q6H PRN Nausea And Vomiting Ondansetron HCl 4 mg 10/16/21 00:57 Ondansetron 4 Mg/2 Ml Inj IV Q3H PRN Nausea And Vomiting Senna/Docusate Sodium 1 tab 10/16/21 22:00 10/23/21 21:02 Sennosides/Docusate Sodium 8.6/50 Mg Tab FEEDTUBE 1 tab QHS MUNA Administration Simple Syrup 15 ml 10/16/21 01:07 Simple Syrup 15 Ml FEEDTUBE PRN PRN Hypoglycemia Simple Syrup 30 ml 10/16/21 01:07 Simple Syrup 15 Ml FEEDTUBE PRN PRN Hypoglycemia Sodium Bicarbonate 325 mg 10/16/21 01:07 Sodium Bicarbonate 325 Mg Tab FEEDTUBE PRN PRN For Clogged Feeding Tube Sodium Chloride 10 ml 10/16/21 01:00 10/24/21 09:23 Sodium Chloride 0.9% 10 Ml Flush Syringe IV 10 ml BID MUNA Administration Sodium Chloride 10 ml 10/16/21 00:57 Sodium Chloride 0.9% 10 Ml Flush Syringe IV PRN PRN LINE FLUSH Sodium Chloride 5 ml 10/16/21 13:57 Sodium Chloride 0.9% 1000 Ml Iv Soln IV PRN PRN CVP Zinc Sulfate 220 mg 10/16/21 22:00 10/24/21 09:23 Zinc Sulfate 220 Mg Cap PO 220 mg BID MUNA Administration
--- NOTE | 2021-10-24 13:39 | Progress Note ---
Assessment and Plan Cultures: 10/15/2021 blood culture: no growth COVID-19 PCR: Positive 10/15/2021 sputum culture: MSSA 10/18/2021 MRSA nasal PCR: Negative A/P: 86-year-old female with hypertension, prior CVA, diabetes, CHF, indwelling cardiac device admitted with resp distress: #Severe sepsis with septic shock, likely secondary to bilateral pneumonia with possible aspiration pneumonia. Initial labs showed leukocytosis with WBC 17.2, D-dimer 7433, lactate of 5.6, proBNP 6606, CRP 25.9, ferritin 418.8. UA with no pyuria. Procalcitonin 39.5. Not a candidate for Actemra due to very high white count and procalcitonin with concern for superadded bacterial infection. Sputum grew MSSA, treated with Ancef. #COVID-19 pneumonia: COVID PCR positive. #Acute hypoxic respiratory failure: on the vent #CHF, indwelling cardiac device: BNP elevated. Cardiology on board. #Prior CVA Recs: -continue steroids x 10 days total, completed Remdesivir for COVID-19 -completes Ancef today -guarded prognosis Yogi Maher MD, FACP, [facility] ([facility]) O: [phone] F: [phone] Subjective Date of service: 10/24/21 Principal diagnosis: AHRF; Pneumonia; Septic shock; COVID-19 infection; CHF; DVT; NSTEMI Interval history: No fever. Remains on the vent. Objective - Exam Narrative Exam: Physical Exam (reviewed in chart to minimize risk of transmission) Constitutional: deferred Head, Ears, Nose: deferred Eyes: deferred Neck: deferred Oral: deferred Cardiovascular: deferred Respiratory: deferred GI: deferred Musculoskeletal: deferred Skin: deferred Hem/Lymphatic: deferred Psych: deferred Neurological: deferred - Constitutional Vitals: Vital Signs Temp Pulse Resp BP Pulse Ox 97.9 F 80 27 H 132/71 99 10/24/21 04:00 10/24/21 11:03 10/24/21 11:00 10/24/21 11:03 10/24/21 11:03 Temperature -Last 24 Hours Temperature 97.9 F Temperature 97.7 F Temperature 98.4 F Temperature 98.4 F - Labs CBC & Chem 7: 01/18/22 06:05 10/24/21 06:05 Labs: Abnormal lab results 10/21/21 10/23/21 10/23/21 Range/Units 08:35 15:54 23:35 WBC (4.5-11.0) K/mm3 RBC (3.65-5.03) M/mm3 Hgb (10.1-14.3) gm/dl Hct (30.3-42.9) % MCH (28-32) pg RDW (13.2-15.2) % ABG pO2 (80.0-90.0) mm Hg ABG HCO3 (20.0-26.0) mmol/L ABG Base Excess (-2.0-3.0) mmol/L ABG Hemoglobin (12.0-16.0) gm/dl Sodium (137-145) mmol/L Chloride (98-107) mmol/L BUN (7-17) mg/dL Glucose (65-100) mg/dL POC Glucose 222 H 176 H (70-105) mg/dL Crossmatch See Detail 10/24/21 10/24/21 10/24/21 Range/Units 05:23 06:05 06:05 WBC 17.0 H (4.5-11.0) K/mm3 RBC 2.67 L (3.65-5.03) M/mm3 Hgb 6.4 L (10.1-14.3) gm/dl Hct 21.1 L (30.3-42.9) % MCH 24 L (28-32) pg RDW 18.1 H (13.2-15.2) % ABG pO2 (80.0-90.0) mm Hg ABG HCO3 (20.0-26.0) mmol/L ABG Base Excess (-2.0-3.0) mmol/L ABG Hemoglobin (12.0-16.0) gm/dl Sodium 147 H (137-145) mmol/L Chloride 109.7 H (98-107) mmol/L BUN 36 H (7-17) mg/dL Glucose 209 H (65-100) mg/dL POC Glucose 202 H (70-105) mg/dL Crossmatch 10/24/21 10/24/21 Range/Units 12:01 12:30 WBC (4.5-11.0) K/mm3 RBC (3.65-5.03) M/mm3 Hgb (10.1-14.3) gm/dl Hct (30.3-42.9) % MCH (28-32) pg RDW (13.2-15.2) % ABG pO2 111.3 H (80.0-90.0) mm Hg ABG HCO3 30.6 H (20.0-26.0) mmol/L ABG Base Excess 4.9 H (-2.0-3.0) mmol/L ABG Hemoglobin 9.0 L (12.0-16.0) gm/dl Sodium (137-145) mmol/L Chloride (98-107) mmol/L BUN (7-17) mg/dL Glucose (65-100) mg/dL POC Glucose 154 H (70-105) mg/dL Crossmatch
--- NOTE | 2021-10-24 14:23 | Progress Note ---
Assessment and Plan Acute hypoxemic respiratory failure on MVS h/o tracheotomy- decanulated Aspiration pneumonia Septic shock COVID-19 infection DVT CHF H/O CVA Adult FTT Leukocytosis Anemia that is microcytic Lactic acidosis Hypomagnesemia NSTEMI Oropharyngeal dysphagia-PEG in place Dementia Can discontinue CVL and place midline line Daily SAT and SBT assessment as tolerated, with plan to liberate from MVS today Son declines supportive transfusions at this time, will hold anticoagulation for now He did say that he may reconsider blood transfusion if her hemoglobin remains persitently <7g/DL Free water flushes increased yesterday fro hypernatremia, may need hypotonic solutions if it does not improve. Correct sodium at a rate of 8-10 meQ every 24 hours to avoid cerebral edema or myelinosis Supportive iron transfusions Extensive discussions with the son re goals of care for his mother and my potential plan to liberate her from MVS - continue Cefazolin; de-escalate per ID recommendations - continue to wean supplemental oxygen for target O2 sat's > 90% acutely - VAP bundle addressed - continue lung protective strategies - continue bronchodilators with pulmonary hygiene per RT - wean per pulmonary driven protocols otherwise - continue to avoid nephrotoxins, renally dose all medications - continue mobility , off loading and frequent turning per facility protocol to prevent pressure ulcers - Wound care per RN/WCT -Enteric nutritional support via PEG - continue accuchecks with glycemic control per SSI (While critically ill target blood glucose of 140-180 mg/dL; avoid hypoglycemia) - GI & VTE prophylaxis- on Enoxaparin, was on Xarelto at home, PPI -maintain sleep-wake cycle, avoid delirium - Flu & pneumovax per protocol - continue other care per attending / other consultants - prn analgesia per pain score COVID SPECIFIC INTERVENTIONS - Remdesivir as per ID/Pulmonary developed protocols (Receiving) - Not as candidate for Actemra - continue systemic steroids for severe COVID-19 infection (Dexamethasone) - zinc and vitamin C supplementation - Monitor inflammatory markers per facility protocol - ferritin, Ddimer, CRP - therapeutic anticoagulation per system Protocol based on d-dimer and clinical considerations - Contact and airborne isolation per facility protocol CONDITION: CRITICAL PROGNOSIS: GUARDED CODE STATUS: FULL CODE The high probability of a clinically significant, sudden or life-threatening deterioration of the [respiratory, cardiovascular, hematologic and neurologic] system(s) required my full and direct attention, intervention and personal management. The aggregate critical care time was [35] minutes without overlap. Time includes spent on; [x] Data Review and interpretation [x] Patient assessment and monitoring of vital signs [x] Documentation [x] Medication orders and management Subjective Date of service: 10/24/21 Principal diagnosis: AHRF; Pneumonia; Septic shock; COVID-19 infection; CHF; DVT; NSTEMI Interval history: Patient is seen today for: AHRF; Aspiration pneumonia; Septic shock; COVID-19 infection; CHF; DVT; NSTEMI Seen and examined at bedside; 24hour events reviewed; nursing and respiratory care staff consulted; no adverse overnight events reported to me; resting peacefully in bed; tolerating SBT Psupp 10; on Lovenox; Objective Vital Signs - 12hr 10/24/21 10/24/21 10/24/21 02:30 03:00 03:23 Temperature Pulse Rate 80 80 80 Pulse Rate [ From Monitor] Respiratory 26 H 24 Rate Blood Pressure 148/100 155/76 O2 Sat by Pulse 89 99 Oximetry 10/24/21 10/24/21 10/24/21 03:30 04:00 04:08 Temperature 97.9 F Pulse Rate 80 80 80 Pulse Rate [ 80 From Monitor] Respiratory 23 24 20 Rate Blood Pressure 136/69 119/65 119/65 O2 Sat by Pulse 99 99 99 Oximetry 10/24/21 10/24/21 10/24/21 04:30 05:00 05:30 Temperature Pulse Rate 86 80 79 Pulse Rate [ From Monitor] Respiratory 22 22 15 Rate Blood Pressure 162/90 136/68 89/48 O2 Sat by Pulse 83 L 97 99 Oximetry 10/24/21 10/24/21 10/24/21 06:00 06:30 07:00 Temperature Pulse Rate 80 80 80 Pulse Rate [ From Monitor] Respiratory 16 13 14 Rate Blood Pressure 91/46 90/51 79/40 O2 Sat by Pulse 99 99 100 Oximetry 10/24/21 10/24/21 10/24/21 07:30 07:54 08:00 Temperature Pulse Rate 80 80 80 Pulse Rate [ 80 From Monitor] Respiratory 13 16 Rate Blood Pressure 96/53 91/54 105/61 O2 Sat by Pulse 100 100 100 Oximetry 10/24/21 10/24/21 10/24/21 08:30 09:00 09:30 Temperature Pulse Rate 80 80 80 Pulse Rate [ From Monitor] Respiratory 23 25 H 26 H Rate Blood Pressure 134/73 132/69 134/72 O2 Sat by Pulse 100 100 100 Oximetry 10/24/21 10/24/21 10/24/21 10:00 10:30 11:00 Temperature Pulse Rate 80 79 80 Pulse Rate [ From Monitor] Respiratory 26 H 26 H 27 H Rate Blood Pressure 134/72 131/73 132/71 O2 Sat by Pulse 99 100 99 Oximetry 10/24/21 10/24/21 10/24/21 11:03 11:30 12:00 Temperature Pulse Rate 80 80 80 Pulse Rate [ From Monitor] Respiratory 27 H 27 H Rate Blood Pressure 132/71 135/71 139/74 O2 Sat by Pulse 99 99 99 Oximetry 10/24/21 10/24/21 10/24/21 12:30 13:00 13:30 Temperature Pulse Rate 80 80 80 Pulse Rate [ From Monitor] Respiratory 25 H 27 H 26 H Rate Blood Pressure 133/73 141/77 143/77 O2 Sat by Pulse 97 98 99 Oximetry Constitutional: no acute distress, other (elderly and chronically ill looking female with mildly increased respiratory effort at rest) Eyes: non-icteric ENT: oropharynx moist, other (ETT 23 cm JESSICA) Neck: supple, no lymphadenopathy, no JVD Effort: mildly labored Ascultation: Bilateral: diminished breath sounds, rhonchi Percussion: Bilateral: not dull Cardiovascular: regular rate and rhythm Gastrointestinal: normoactive bowel sounds, soft, non-tender, non-distended, other (PEG tube) Integumentary: rash (xeroderma type) Neurologic: pupils equal and round, unable to assess Psychiatric: other (unable to assess re: AMS) CBC and BMP: 10/24/21 06:05 10/24/21 06:05 ABG, PT/INR, D-dimer: ABG ABG pH 7.390 pH Units (7.350-7.450) 10/24/21 12:30 POC ABG pCO2 48.1 mmHg (32.0-48.0) H 10/18/21 09:00 ABG pCO2 51.7 mm Hg 10/24/21 12:30 POC ABG pO2 103.0 mmHg (83-108) 10/18/21 09:00 ABG pO2 111.3 mm Hg (80.0-90.0) H 10/24/21 12:30 POC ABG HCO3 22.2 10/18/21 09:00 ABG O2 Saturation 97.8 % (95.0-99.0) 10/24/21 12:30 PT/INR, D-dimer PT 16.3 Sec. (12.2-14.9) H 10/20/21 18:05 INR 1.18 (0.87-1.13) H 10/20/21 18:05 D-Dimer 1890.39 ng/mlDDU (0-234) H 10/23/21 05:15 Abnormal lab findings: Abnormal Labs 10/15/21 10/15/21 10/15/21 16:15 16:15 16:15 WBC 17.2 H RBC Hgb 9.0 L Hct 29.7 L MCV 78 L MCH 24 L RDW 17.5 H Plt Count Seg Neuts % (Manual) 88.0 H Lymphocytes % (Manual) 3.0 L Nucleated RBC % Seg Neutrophils # Man 15.1 H Lymphocytes # (Manual) 0.5 L PT INR APTT 38.0 H Fibrinogen D-Dimer 7433.97 H Heparin Anti-Xa Level ABG pH POC ABG pCO2 ABG pO2 ABG HCO3 ABG O2 Saturation ABG Base Excess ABG Hemoglobin ABG Sodium ABG Chloride ABG Glucose Oxyhemoglobin Sodium Potassium Chloride Carbon Dioxide BUN Glucose POC Glucose Lactic Acid 5.60 H* Calcium Phosphorus Magnesium Iron TIBC Ferritin Direct Bilirubin ALT Lactate Dehydrogenase Troponin T C-Reactive Protein NT-Pro-B Natriuret Pep Total Protein Albumin LDL Cholesterol Direct HDL Cholesterol Arterial Blood Glucose Salicylates Acetaminophen Coronavirus (PCR) Crossmatch 10/15/21 10/15/21 10/15/21 16:15 16:15 16:15 WBC RBC Hgb Hct MCV MCH RDW Plt Count Seg Neuts % (Manual) Lymphocytes % (Manual) Nucleated RBC % Seg Neutrophils # Man Lymphocytes # (Manual) PT INR APTT Fibrinogen D-Dimer Heparin Anti-Xa Level ABG pH POC ABG pCO2 ABG pO2 ABG HCO3 ABG O2 Saturation ABG Base Excess ABG Hemoglobin ABG Sodium ABG Chloride ABG Glucose Oxyhemoglobin Sodium 134 L Potassium Chloride 89.6 L Carbon Dioxide BUN 27 H Glucose 234 H POC Glucose Lactic Acid Calcium Phosphorus Magnesium 1.40 L Iron TIBC Ferritin Direct Bilirubin 0.3 H ALT Lactate Dehydrogenase Troponin T C-Reactive Protein NT-Pro-B Natriuret Pep 6606 H Total Protein 6.2 L Albumin 3.1 L LDL Cholesterol Direct HDL Cholesterol Arterial Blood Glucose Salicylates < 0.3 L Acetaminophen 5.0 L Coronavirus (PCR) Crossmatch 10/15/21 10/15/21 10/15/21 16:15 16:15 16:15 WBC RBC Hgb Hct MCV MCH RDW Plt Count Seg Neuts % (Manual) Lymphocytes % (Manual) Nucleated RBC % Seg Neutrophils # Man Lymphocytes # (Manual) PT INR APTT Fibrinogen D-Dimer Heparin Anti-Xa Level ABG pH POC ABG pCO2 ABG pO2 ABG HCO3 ABG O2 Saturation ABG Base Excess ABG Hemoglobin ABG Sodium ABG Chloride ABG Glucose Oxyhemoglobin Sodium Potassium Chloride Carbon Dioxide BUN Glucose 221 H POC Glucose Lactic Acid Calcium Phosphorus Magnesium Iron TIBC Ferritin 418.8 H 421.6 H Direct Bilirubin ALT Lactate Dehydrogenase 233 H Troponin T C-Reactive Protein 25.90 H NT-Pro-B Natriuret Pep Total Protein Albumin LDL Cholesterol Direct HDL Cholesterol Arterial Blood Glucose Salicylates Acetaminophen Coronavirus (PCR) Crossmatch 10/15/21 10/15/21 10/15/21 16:42 18:00 18:00 WBC RBC Hgb Hct MCV MCH RDW Plt Count Seg Neuts % (Manual) Lymphocytes % (Manual) Nucleated RBC % Seg Neutrophils # Man Lymphocytes # (Manual) PT INR APTT Fibrinogen D-Dimer Heparin Anti-Xa Level ABG pH 7.348 L POC ABG pCO2 ABG pO2 75.4 L ABG HCO3 30.6 H ABG O2 Saturation 94.3 L ABG Base Excess 3.9 H ABG Hemoglobin 10.9 L ABG Sodium ABG Chloride ABG Glucose Oxyhemoglobin 93.1 L Sodium Potassium Chloride Carbon Dioxide BUN Glucose POC Glucose Lactic Acid 3.10 H* Calcium Phosphorus Magnesium Iron TIBC Ferritin Direct Bilirubin ALT Lactate Dehydrogenase Troponin T 0.036 H C-Reactive Protein NT-Pro-B Natriuret Pep Total Protein Albumin LDL Cholesterol Direct 46 L HDL Cholesterol 25 L Arterial Blood Glucose Salicylates Acetaminophen Coronavirus (PCR) Crossmatch 10/15/21 10/16/21 10/16/21 20:58 01:55 04:50 WBC RBC Hgb Hct MCV MCH RDW Plt Count Seg Neuts % (Manual) Lymphocytes % (Manual) Nucleated RBC % Seg Neutrophils # Man Lymphocytes # (Manual) PT INR APTT Fibrinogen D-Dimer Heparin Anti-Xa Level ABG pH 7.490 H POC ABG pCO2 ABG pO2 ABG HCO3 ABG O2 Saturation ABG Base Excess ABG Hemoglobin 9.7 L ABG Sodium 128.9 L ABG Chloride 96.0 L ABG Glucose 235 H Oxyhemoglobin Sodium 135 L Potassium Chloride 94.9 L Carbon Dioxide BUN 28 H Glucose 226 H POC Glucose Lactic Acid Calcium Phosphorus Magnesium Iron TIBC Ferritin Direct Bilirubin ALT Lactate Dehydrogenase Troponin T 0.038 H C-Reactive Protein NT-Pro-B Natriuret Pep Total Protein Albumin LDL Cholesterol Direct HDL Cholesterol Arterial Blood Glucose 235 H Salicylates Acetaminophen Coronavirus (PCR) Crossmatch 10/16/21 10/16/21 10/16/21 09:05 09:05 09:05 WBC 14.9 H RBC 3.20 L Hgb 7.6 L Hct 24.8 L MCV 77 L MCH 24 L RDW 17.5 H Plt Count Seg Neuts % (Manual) Lymphocytes % (Manual) Nucleated RBC % Seg Neutrophils # Man Lymphocytes # (Manual) PT INR APTT Fibrinogen D-Dimer Heparin Anti-Xa Level ABG pH POC ABG pCO2 ABG pO2 ABG HCO3 ABG O2 Saturation ABG Base Excess ABG Hemoglobin ABG Sodium ABG Chloride ABG Glucose Oxyhemoglobin Sodium 132 L Potassium Chloride 93.2 L Carbon Dioxide BUN 28 H Glucose 225 H POC Glucose Lactic Acid 2.30 H* Calcium 8.3 L Phosphorus Magnesium 1.30 L Iron TIBC Ferritin Direct Bilirubin ALT Lactate Dehydrogenase Troponin T C-Reactive Protein NT-Pro-B Natriuret Pep Total Protein 5.7 L Albumin 2.4 L LDL Cholesterol Direct HDL Cholesterol Arterial Blood Glucose Salicylates Acetaminophen Coronavirus (PCR) Crossmatch 10/16/21 10/16/21 10/16/21 09:05 09:36 12:24 WBC RBC Hgb Hct MCV MCH RDW Plt Count Seg Neuts % (Manual) Lymphocytes % (Manual) Nucleated RBC % Seg Neutrophils # Man Lymphocytes # (Manual) PT INR APTT Fibrinogen D-Dimer Heparin Anti-Xa Level ABG pH POC ABG pCO2 ABG pO2 ABG HCO3 ABG O2 Saturation ABG Base Excess ABG Hemoglobin ABG Sodium ABG Chloride ABG Glucose Oxyhemoglobin Sodium Potassium Chloride Carbon Dioxide BUN Glucose POC Glucose 187 H Lactic Acid Calcium Phosphorus 2.10 L Magnesium Iron TIBC Ferritin Direct Bilirubin ALT Lactate Dehydrogenase Troponin T C-Reactive Protein NT-Pro-B Natriuret Pep Total Protein Albumin LDL Cholesterol Direct HDL Cholesterol Arterial Blood Glucose Salicylates Acetaminophen Coronavirus (PCR) Positive A Crossmatch 10/16/21 10/16/21 10/16/21 17:19 21:00 23:31 WBC RBC Hgb Hct MCV MCH RDW Plt Count Seg Neuts % (Manual) Lymphocytes % (Manual) Nucleated RBC % Seg Neutrophils # Man Lymphocytes # (Manual) PT INR APTT Fibrinogen D-Dimer Heparin Anti-Xa Level ABG pH POC ABG pCO2 ABG pO2 ABG HCO3 ABG O2 Saturation ABG Base Excess ABG Hemoglobin ABG Sodium ABG Chloride ABG Glucose Oxyhemoglobin Sodium Potassium Chloride Carbon Dioxide BUN Glucose POC Glucose 128 H 132 H Lactic Acid Calcium Phosphorus Magnesium Iron TIBC Ferritin Direct Bilirubin ALT Lactate Dehydrogenase 216 H Troponin T C-Reactive Protein 26.90 H NT-Pro-B Natriuret Pep Total Protein Albumin LDL Cholesterol Direct HDL Cholesterol Arterial Blood Glucose Salicylates Acetaminophen Coronavirus (PCR) Crossmatch 10/16/21 10/17/21 10/17/21 23:31 06:02 06:02 WBC 16.7 H RBC 3.16 L Hgb 7.6 L Hct 24.2 L MCV 77 L MCH 24 L RDW 17.7 H Plt Count Seg Neuts % (Manual) 95.0 H Lymphocytes % (Manual) 1.0 L Nucleated RBC % Seg Neutrophils # Man 15.9 H Lymphocytes # (Manual) 0.2 L PT INR APTT Fibrinogen D-Dimer Heparin Anti-Xa Level ABG pH POC ABG pCO2 ABG pO2 ABG HCO3 ABG O2 Saturation ABG Base Excess ABG Hemoglobin ABG Sodium ABG Chloride ABG Glucose Oxyhemoglobin Sodium Potassium Chloride Carbon Dioxide BUN 32 H Glucose 163 H POC Glucose Lactic Acid Calcium 7.8 L Phosphorus Magnesium Iron TIBC Ferritin 428.7 H Direct Bilirubin ALT Lactate Dehydrogenase Troponin T C-Reactive Protein NT-Pro-B Natriuret Pep Total Protein 5.7 L Albumin 2.3 L LDL Cholesterol Direct HDL Cholesterol Arterial Blood Glucose Salicylates Acetaminophen Coronavirus (PCR) Crossmatch 10/17/21 10/17/21 10/17/21 06:02 06:02 06:21 WBC RBC Hgb Hct MCV MCH RDW Plt Count Seg Neuts % (Manual) Lymphocytes % (Manual) Nucleated RBC % Seg Neutrophils # Man Lymphocytes # (Manual) PT INR APTT Fibrinogen D-Dimer Heparin Anti-Xa Level ABG pH POC ABG pCO2 ABG pO2 ABG HCO3 ABG O2 Saturation ABG Base Excess ABG Hemoglobin ABG Sodium ABG Chloride ABG Glucose Oxyhemoglobin Sodium Potassium 3.5 L Chloride Carbon Dioxide BUN 32 H Glucose 216 H POC Glucose 219 H Lactic Acid Calcium Phosphorus Magnesium 1.40 L Iron TIBC Ferritin Direct Bilirubin 0.3 H ALT Lactate Dehydrogenase 257 H Troponin T C-Reactive Protein 28.50 H NT-Pro-B Natriuret Pep Total Protein 5.8 L Albumin 2.3 L LDL Cholesterol Direct HDL Cholesterol Arterial Blood Glucose Salicylates Acetaminophen Coronavirus (PCR) Crossmatch 10/17/21 10/17/21 10/17/21 08:35 12:38 17:35 WBC RBC Hgb Hct MCV MCH RDW Plt Count Seg Neuts % (Manual) Lymphocytes % (Manual) Nucleated RBC % Seg Neutrophils # Man Lymphocytes # (Manual) PT INR APTT Fibrinogen D-Dimer Heparin Anti-Xa Level ABG pH POC ABG pCO2 ABG pO2 ABG HCO3 ABG O2 Saturation ABG Base Excess ABG Hemoglobin ABG Sodium ABG Chloride ABG Glucose Oxyhemoglobin Sodium Potassium Chloride Carbon Dioxide BUN Glucose POC Glucose 216 H 262 H 230 H Lactic Acid Calcium Phosphorus Magnesium Iron TIBC Ferritin Direct Bilirubin ALT Lactate Dehydrogenase Troponin T C-Reactive Protein NT-Pro-B Natriuret Pep Total Protein Albumin LDL Cholesterol Direct HDL Cholesterol Arterial Blood Glucose Salicylates Acetaminophen Coronavirus (PCR) Crossmatch 10/17/21 10/17/21 10/18/21 18:20 22:17 00:16 WBC RBC Hgb Hct MCV MCH RDW Plt Count Seg Neuts % (Manual) Lymphocytes % (Manual) Nucleated RBC % Seg Neutrophils # Man Lymphocytes # (Manual) PT INR APTT Fibrinogen D-Dimer Heparin Anti-Xa Level 0.24 L ABG pH POC ABG pCO2 ABG pO2 ABG HCO3 ABG O2 Saturation ABG Base Excess ABG Hemoglobin ABG Sodium ABG Chloride ABG Glucose Oxyhemoglobin Sodium Potassium Chloride Carbon Dioxide BUN Glucose POC Glucose 215 H 247 H Lactic Acid Calcium Phosphorus Magnesium Iron TIBC Ferritin Direct Bilirubin ALT Lactate Dehydrogenase Troponin T C-Reactive Protein NT-Pro-B Natriuret Pep Total Protein Albumin LDL Cholesterol Direct HDL Cholesterol Arterial Blood Glucose Salicylates Acetaminophen Coronavirus (PCR) Crossmatch 10/18/21 10/18/21 10/18/21 04:40 04:40 05:00 WBC RBC Hgb Hct MCV MCH RDW Plt Count Seg Neuts % (Manual) Lymphocytes % (Manual) Nucleated RBC % Seg Neutrophils # Man Lymphocytes # (Manual) PT INR APTT Fibrinogen D-Dimer 2424.98 H Heparin Anti-Xa Level ABG pH POC ABG pCO2 ABG pO2 ABG HCO3 ABG O2 Saturation ABG Base Excess ABG Hemoglobin ABG Sodium ABG Chloride ABG Glucose Oxyhemoglobin Sodium Potassium Chloride Carbon Dioxide BUN 44 H Glucose 286 H POC Glucose Lactic Acid Calcium 7.8 L Phosphorus Magnesium 2.60 H Iron TIBC Ferritin Direct Bilirubin ALT Lactate Dehydrogenase Troponin T C-Reactive Protein NT-Pro-B Natriuret Pep Total Protein 5.7 L Albumin 2.2 L LDL Cholesterol Direct HDL Cholesterol Arterial Blood Glucose Salicylates Acetaminophen Coronavirus (PCR) Crossmatch 10/18/21 10/18/21 10/18/21 05:16 05:39 07:29 WBC 16.4 H RBC 3.03 L Hgb 7.3 L Hct 23.5 L MCV 78 L MCH 24 L RDW 17.9 H Plt Count Seg Neuts % (Manual) Lymphocytes % (Manual) Nucleated RBC % Seg Neutrophils # Man Lymphocytes # (Manual) PT INR APTT Fibrinogen D-Dimer Heparin Anti-Xa Level ABG pH POC ABG pCO2 ABG pO2 ABG HCO3 ABG O2 Saturation ABG Base Excess ABG Hemoglobin ABG Sodium ABG Chloride ABG Glucose Oxyhemoglobin Sodium Potassium Chloride Carbon Dioxide BUN Glucose POC Glucose 281 H 274 H Lactic Acid Calcium Phosphorus Magnesium Iron TIBC Ferritin Direct Bilirubin ALT Lactate Dehydrogenase Troponin T C-Reactive Protein NT-Pro-B Natriuret Pep Total Protein Albumin LDL Cholesterol Direct HDL Cholesterol Arterial Blood Glucose Salicylates Acetaminophen Coronavirus (PCR) Crossmatch 10/18/21 10/18/21 10/18/21 09:00 11:27 11:30 WBC RBC Hgb Hct MCV MCH RDW Plt Count Seg Neuts % (Manual) Lymphocytes % (Manual) Nucleated RBC % Seg Neutrophils # Man Lymphocytes # (Manual) PT INR APTT Fibrinogen D-Dimer Heparin Anti-Xa Level 0.24 L ABG pH 7.282 L POC ABG pCO2 48.1 H ABG pO2 ABG HCO3 ABG O2 Saturation ABG Base Excess ABG Hemoglobin 7.6 L ABG Sodium ABG Chloride ABG Glucose 252 H Oxyhemoglobin Sodium Potassium Chloride Carbon Dioxide BUN Glucose POC Glucose 219 H Lactic Acid Calcium Phosphorus Magnesium Iron TIBC Ferritin Direct Bilirubin ALT Lactate Dehydrogenase Troponin T C-Reactive Protein NT-Pro-B Natriuret Pep Total Protein Albumin LDL Cholesterol Direct HDL Cholesterol Arterial Blood Glucose 252 H Salicylates Acetaminophen Coronavirus (PCR) Crossmatch 10/18/21 10/18/21 10/18/21 15:58 19:56 23:21 WBC RBC Hgb Hct MCV MCH RDW Plt Count Seg Neuts % (Manual) Lymphocytes % (Manual) Nucleated RBC % Seg Neutrophils # Man Lymphocytes # (Manual) PT INR APTT Fibrinogen D-Dimer Heparin Anti-Xa Level 0.22 L ABG pH POC ABG pCO2 ABG pO2 ABG HCO3 ABG O2 Saturation ABG Base Excess ABG Hemoglobin ABG Sodium ABG Chloride ABG Glucose Oxyhemoglobin Sodium Potassium Chloride Carbon Dioxide BUN Glucose POC Glucose 264 H 198 H Lactic Acid Calcium Phosphorus Magnesium Iron TIBC Ferritin Direct Bilirubin ALT Lactate Dehydrogenase Troponin T C-Reactive Protein NT-Pro-B Natriuret Pep Total Protein Albumin LDL Cholesterol Direct HDL Cholesterol Arterial Blood Glucose Salicylates Acetaminophen Coronavirus (PCR) Crossmatch 10/19/21 10/19/21 10/19/21 02:40 02:40 02:40 WBC RBC Hgb Hct MCV MCH RDW Plt Count Seg Neuts % (Manual) Lymphocytes % (Manual) Nucleated RBC % Seg Neutrophils # Man Lymphocytes # (Manual) PT INR APTT Fibrinogen D-Dimer Heparin Anti-Xa Level ABG pH POC ABG pCO2 ABG pO2 ABG HCO3 ABG O2 Saturation ABG Base Excess ABG Hemoglobin ABG Sodium ABG Chloride ABG Glucose Oxyhemoglobin Sodium Potassium Chloride Carbon Dioxide BUN 49 H Glucose 167 H POC Glucose Lactic Acid Calcium Phosphorus Magnesium Iron TIBC Ferritin 383.0 H Direct Bilirubin ALT Lactate Dehydrogenase 223 H Troponin T C-Reactive Protein 9.30 H NT-Pro-B Natriuret Pep Total Protein 6.2 L Albumin 2.5 L LDL Cholesterol Direct HDL Cholesterol Arterial Blood Glucose Salicylates Acetaminophen Coronavirus (PCR) Crossmatch 10/19/21 10/19/21 10/19/21 02:40 02:40 05:06 WBC 15.5 H RBC 3.13 L Hgb 7.5 L Hct 24.3 L MCV 77 L MCH 24 L RDW 17.8 H Plt Count Seg Neuts % (Manual) Lymphocytes % (Manual) Nucleated RBC % Seg Neutrophils # Man Lymphocytes # (Manual) PT INR APTT Fibrinogen D-Dimer Heparin Anti-Xa Level 0.17 L ABG pH POC ABG pCO2 ABG pO2 ABG HCO3 ABG O2 Saturation ABG Base Excess ABG Hemoglobin ABG Sodium ABG Chloride ABG Glucose Oxyhemoglobin Sodium Potassium Chloride Carbon Dioxide BUN Glucose POC Glucose 152 H Lactic Acid Calcium Phosphorus Magnesium Iron TIBC Ferritin Direct Bilirubin ALT Lactate Dehydrogenase Troponin T C-Reactive Protein NT-Pro-B Natriuret Pep Total Protein Albumin LDL Cholesterol Direct HDL Cholesterol Arterial Blood Glucose Salicylates Acetaminophen Coronavirus (PCR) Crossmatch 10/19/21 10/19/21 10/19/21 11:40 16:06 23:55 WBC RBC Hgb Hct MCV MCH RDW Plt Count Seg Neuts % (Manual) Lymphocytes % (Manual) Nucleated RBC % Seg Neutrophils # Man Lymphocytes # (Manual) PT INR APTT Fibrinogen D-Dimer Heparin Anti-Xa Level ABG pH POC ABG pCO2 ABG pO2 ABG HCO3 ABG O2 Saturation ABG Base Excess ABG Hemoglobin ABG Sodium ABG Chloride ABG Glucose Oxyhemoglobin Sodium Potassium Chloride Carbon Dioxide BUN Glucose POC Glucose 146 H 244 H 229 H Lactic Acid Calcium Phosphorus Magnesium Iron TIBC Ferritin Direct Bilirubin ALT Lactate Dehydrogenase Troponin T C-Reactive Protein NT-Pro-B Natriuret Pep Total Protein Albumin LDL Cholesterol Direct HDL Cholesterol Arterial Blood Glucose Salicylates Acetaminophen Coronavirus (PCR) Crossmatch 10/20/21 10/20/21 10/20/21 04:25 05:00 05:00 WBC 16.2 H RBC 3.04 L Hgb 7.3 L Hct 23.6 L MCV 78 L MCH 24 L RDW 18.0 H Plt Count Seg Neuts % (Manual) 85.0 H Lymphocytes % (Manual) 6.0 L Nucleated RBC % 1.0 H Seg Neutrophils # Man 13.8 H Lymphocytes # (Manual) 1.0 L PT INR APTT Fibrinogen 803 H D-Dimer 1817.20 H Heparin Anti-Xa Level ABG pH POC ABG pCO2 ABG pO2 ABG HCO3 ABG O2 Saturation ABG Base Excess ABG Hemoglobin ABG Sodium ABG Chloride ABG Glucose Oxyhemoglobin Sodium Potassium Chloride 108.5 H Carbon Dioxide 21 L BUN 49 H Glucose 186 H POC Glucose Lactic Acid Calcium Phosphorus Magnesium Iron 14 L TIBC 138 L Ferritin Direct Bilirubin ALT Lactate Dehydrogenase Troponin T C-Reactive Protein NT-Pro-B Natriuret Pep Total Protein 5.7 L Albumin 2.4 L LDL Cholesterol Direct HDL Cholesterol Arterial Blood Glucose Salicylates Acetaminophen Coronavirus (PCR) Crossmatch 10/20/21 10/20/21 10/20/21 05:11 10:45 12:14 WBC RBC Hgb Hct MCV MCH RDW Plt Count Seg Neuts % (Manual) Lymphocytes % (Manual) Nucleated RBC % Seg Neutrophils # Man Lymphocytes # (Manual) PT INR APTT Fibrinogen D-Dimer Heparin Anti-Xa Level 0.14 L ABG pH POC ABG pCO2 ABG pO2 ABG HCO3 ABG O2 Saturation ABG Base Excess ABG Hemoglobin ABG Sodium ABG Chloride ABG Glucose Oxyhemoglobin Sodium Potassium Chloride Carbon Dioxide BUN Glucose POC Glucose 181 H 192 H Lactic Acid Calcium Phosphorus Magnesium Iron TIBC Ferritin Direct Bilirubin ALT Lactate Dehydrogenase Troponin T C-Reactive Protein NT-Pro-B Natriuret Pep Total Protein Albumin LDL Cholesterol Direct HDL Cholesterol Arterial Blood Glucose Salicylates Acetaminophen Coronavirus (PCR) Crossmatch 10/20/21 10/20/21 10/20/21 13:45 17:16 18:05 WBC RBC Hgb Hct MCV MCH RDW Plt Count Seg Neuts % (Manual) Lymphocytes % (Manual) Nucleated RBC % Seg Neutrophils # Man Lymphocytes # (Manual) PT 16.3 H INR 1.18 H APTT Fibrinogen D-Dimer Heparin Anti-Xa Level ABG pH POC ABG pCO2 ABG pO2 ABG HCO3 ABG O2 Saturation ABG Base Excess ABG Hemoglobin 7.9 L ABG Sodium ABG Chloride ABG Glucose Oxyhemoglobin Sodium Potassium Chloride Carbon Dioxide BUN Glucose POC Glucose 182 H Lactic Acid Calcium Phosphorus Magnesium Iron TIBC Ferritin Direct Bilirubin ALT Lactate Dehydrogenase Troponin T C-Reactive Protein NT-Pro-B Natriuret Pep Total Protein Albumin LDL Cholesterol Direct HDL Cholesterol Arterial Blood Glucose Salicylates Acetaminophen Coronavirus (PCR) Crossmatch 10/21/21 10/21/21 10/21/21 00:23 04:53 04:53 WBC 18.6 H RBC 2.88 L Hgb 6.8 L Hct 22.1 L MCV 77 L MCH 24 L RDW 18.2 H Plt Count Seg Neuts % (Manual) Lymphocytes % (Manual) Nucleated RBC % Seg Neutrophils # Man Lymphocytes # (Manual) PT INR APTT Fibrinogen D-Dimer Heparin Anti-Xa Level ABG pH POC ABG pCO2 ABG pO2 ABG HCO3 ABG O2 Saturation ABG Base Excess ABG Hemoglobin ABG Sodium ABG Chloride ABG Glucose Oxyhemoglobin Sodium 146 H Potassium Chloride 113.0 H Carbon Dioxide BUN 42 H Glucose 165 H POC Glucose 188 H Lactic Acid Calcium Phosphorus Magnesium Iron TIBC Ferritin Direct Bilirubin ALT Lactate Dehydrogenase Troponin T C-Reactive Protein NT-Pro-B Natriuret Pep Total Protein Albumin LDL Cholesterol Direct HDL Cholesterol Arterial Blood Glucose Salicylates Acetaminophen Coronavirus (PCR) Crossmatch 10/21/21 10/21/21 10/21/21 05:19 08:35 11:43 WBC RBC Hgb Hct MCV MCH RDW Plt Count Seg Neuts % (Manual) Lymphocytes % (Manual) Nucleated RBC % Seg Neutrophils # Man Lymphocytes # (Manual) PT INR APTT Fibrinogen D-Dimer Heparin Anti-Xa Level ABG pH POC ABG pCO2 ABG pO2 ABG HCO3 ABG O2 Saturation ABG Base Excess ABG Hemoglobin ABG Sodium ABG Chloride ABG Glucose Oxyhemoglobin Sodium Potassium Chloride Carbon Dioxide BUN Glucose POC Glucose 160 H 126 H Lactic Acid Calcium Phosphorus Magnesium Iron TIBC Ferritin Direct Bilirubin ALT Lactate Dehydrogenase Troponin T C-Reactive Protein NT-Pro-B Natriuret Pep Total Protein Albumin LDL Cholesterol Direct HDL Cholesterol Arterial Blood Glucose Salicylates Acetaminophen Coronavirus (PCR) Crossmatch See Detail 10/21/21 10/21/21 10/21/21 17:33 18:45 23:50 WBC RBC Hgb Hct MCV MCH RDW Plt Count Seg Neuts % (Manual) Lymphocytes % (Manual) Nucleated RBC % Seg Neutrophils # Man Lymphocytes # (Manual) PT INR APTT Fibrinogen D-Dimer Heparin Anti-Xa Level ABG pH 7.336 L POC ABG pCO2 ABG pO2 ABG HCO3 ABG O2 Saturation ABG Base Excess ABG Hemoglobin 7.6 L ABG Sodium ABG Chloride ABG Glucose Oxyhemoglobin 94.6 L Sodium Potassium Chloride Carbon Dioxide BUN Glucose POC Glucose 163 H 198 H Lactic Acid Calcium Phosphorus Magnesium Iron TIBC Ferritin Direct Bilirubin ALT Lactate Dehydrogenase Troponin T C-Reactive Protein NT-Pro-B Natriuret Pep Total Protein Albumin LDL Cholesterol Direct HDL Cholesterol Arterial Blood Glucose Salicylates Acetaminophen Coronavirus (PCR) Crossmatch 10/22/21 10/22/21 10/22/21 04:30 04:30 04:30 WBC 21.5 H RBC 3.01 L Hgb 7.3 L Hct 23.9 L MCV MCH 24 L RDW 18.7 H Plt Count 454 H Seg Neuts % (Manual) 85.0 H Lymphocytes % (Manual) 3.0 L Nucleated RBC % Seg Neutrophils # Man 18.3 H Lymphocytes # (Manual) 0.6 L PT INR APTT Fibrinogen D-Dimer Heparin Anti-Xa Level 0.75 H ABG pH POC ABG pCO2 ABG pO2 ABG HCO3 ABG O2 Saturation ABG Base Excess ABG Hemoglobin ABG Sodium ABG Chloride ABG Glucose Oxyhemoglobin Sodium Potassium 5.1 H Chloride 111.7 H Carbon Dioxide BUN 41 H Glucose 203 H POC Glucose Lactic Acid Calcium Phosphorus Magnesium Iron TIBC Ferritin Direct Bilirubin ALT 5 L Lactate Dehydrogenase Troponin T C-Reactive Protein NT-Pro-B Natriuret Pep Total Protein 6.2 L Albumin 2.5 L LDL Cholesterol Direct HDL Cholesterol Arterial Blood Glucose Salicylates Acetaminophen Coronavirus (PCR) Crossmatch 10/22/21 10/22/21 10/22/21 05:12 11:41 17:01 WBC RBC Hgb Hct MCV MCH RDW Plt Count Seg Neuts % (Manual) Lymphocytes % (Manual) Nucleated RBC % Seg Neutrophils # Man Lymphocytes # (Manual) PT INR APTT Fibrinogen D-Dimer Heparin Anti-Xa Level ABG pH POC ABG pCO2 ABG pO2 ABG HCO3 ABG O2 Saturation ABG Base Excess ABG Hemoglobin ABG Sodium ABG Chloride ABG Glucose Oxyhemoglobin Sodium Potassium Chloride Carbon Dioxide BUN Glucose POC Glucose 189 H 139 H 192 H Lactic Acid Calcium Phosphorus Magnesium Iron TIBC Ferritin Direct Bilirubin ALT Lactate Dehydrogenase Troponin T C-Reactive Protein NT-Pro-B Natriuret Pep Total Protein Albumin LDL Cholesterol Direct HDL Cholesterol Arterial Blood Glucose Salicylates Acetaminophen Coronavirus (PCR) Crossmatch 10/22/21 10/23/21 10/23/21 23:51 05:15 05:15 WBC 19.0 H RBC 3.18 L Hgb 7.6 L Hct 24.7 L MCV 78 L MCH 24 L RDW 18.5 H Plt Count 533 H Seg Neuts % (Manual) Lymphocytes % (Manual) Nucleated RBC % Seg Neutrophils # Man Lymphocytes # (Manual) PT INR APTT Fibrinogen D-Dimer Heparin Anti-Xa Level ABG pH POC ABG pCO2 ABG pO2 ABG HCO3 ABG O2 Saturation ABG Base Excess ABG Hemoglobin ABG Sodium ABG Chloride ABG Glucose Oxyhemoglobin Sodium 148 H Potassium 5.1 H Chloride 112.8 H Carbon Dioxide BUN 38 H Glucose 158 H POC Glucose 196 H Lactic Acid Calcium Phosphorus 2.40 L Magnesium Iron TIBC Ferritin Direct Bilirubin ALT Lactate Dehydrogenase 329 H Troponin T C-Reactive Protein 5.00 H NT-Pro-B Natriuret Pep Total Protein Albumin LDL Cholesterol Direct HDL Cholesterol Arterial Blood Glucose Salicylates Acetaminophen Coronavirus (PCR) Crossmatch 10/23/21 10/23/21 10/23/21 05:15 05:15 05:38 WBC RBC Hgb Hct MCV MCH RDW Plt Count Seg Neuts % (Manual) Lymphocytes % (Manual) Nucleated RBC % Seg Neutrophils # Man Lymphocytes # (Manual) PT INR APTT Fibrinogen D-Dimer 1890.39 H Heparin Anti-Xa Level ABG pH POC ABG pCO2 ABG pO2 ABG HCO3 ABG O2 Saturation ABG Base Excess ABG Hemoglobin ABG Sodium ABG Chloride ABG Glucose Oxyhemoglobin Sodium Potassium Chloride Carbon Dioxide BUN Glucose POC Glucose 149 H Lactic Acid Calcium Phosphorus Magnesium Iron TIBC Ferritin 624.0 H Direct Bilirubin ALT Lactate Dehydrogenase Troponin T C-Reactive Protein NT-Pro-B Natriuret Pep Total Protein Albumin LDL Cholesterol Direct HDL Cholesterol Arterial Blood Glucose Salicylates Acetaminophen Coronavirus (PCR) Crossmatch 10/23/21 10/23/21 10/23/21 11:26 15:54 23:35 WBC RBC Hgb Hct MCV MCH RDW Plt Count Seg Neuts % (Manual) Lymphocytes % (Manual) Nucleated RBC % Seg Neutrophils # Man Lymphocytes # (Manual) PT INR APTT Fibrinogen D-Dimer Heparin Anti-Xa Level ABG pH POC ABG pCO2 ABG pO2 ABG HCO3 ABG O2 Saturation ABG Base Excess ABG Hemoglobin ABG Sodium ABG Chloride ABG Glucose Oxyhemoglobin Sodium Potassium Chloride Carbon Dioxide BUN Glucose POC Glucose 235 H 222 H 176 H Lactic Acid Calcium Phosphorus Magnesium Iron TIBC Ferritin Direct Bilirubin ALT Lactate Dehydrogenase Troponin T C-Reactive Protein NT-Pro-B Natriuret Pep Total Protein Albumin LDL Cholesterol Direct HDL Cholesterol Arterial Blood Glucose Salicylates Acetaminophen Coronavirus (PCR) Crossmatch 10/24/21 10/24/21 10/24/21 05:23 06:05 06:05 WBC 17.0 H RBC 2.67 L Hgb 6.4 L Hct 21.1 L MCV MCH 24 L RDW 18.1 H Plt Count Seg Neuts % (Manual) Lymphocytes % (Manual) Nucleated RBC % Seg Neutrophils # Man Lymphocytes # (Manual) PT INR APTT Fibrinogen D-Dimer Heparin Anti-Xa Level ABG pH POC ABG pCO2 ABG pO2 ABG HCO3 ABG O2 Saturation ABG Base Excess ABG Hemoglobin ABG Sodium ABG Chloride ABG Glucose Oxyhemoglobin Sodium 147 H Potassium Chloride 109.7 H Carbon Dioxide BUN 36 H Glucose 209 H POC Glucose 202 H Lactic Acid Calcium Phosphorus Magnesium Iron TIBC Ferritin Direct Bilirubin ALT Lactate Dehydrogenase Troponin T C-Reactive Protein NT-Pro-B Natriuret Pep Total Protein Albumin LDL Cholesterol Direct HDL Cholesterol Arterial Blood Glucose Salicylates Acetaminophen Coronavirus (PCR) Crossmatch 10/24/21 10/24/21 12:01 12:30 WBC RBC Hgb Hct MCV MCH RDW Plt Count Seg Neuts % (Manual) Lymphocytes % (Manual) Nucleated RBC % Seg Neutrophils # Man Lymphocytes # (Manual) PT INR APTT Fibrinogen D-Dimer Heparin Anti-Xa Level ABG pH POC ABG pCO2 ABG pO2 111.3 H ABG HCO3 30.6 H ABG O2 Saturation ABG Base Excess 4.9 H ABG Hemoglobin 9.0 L ABG Sodium ABG Chloride ABG Glucose Oxyhemoglobin Sodium Potassium Chloride Carbon Dioxide BUN Glucose POC Glucose 154 H Lactic Acid Calcium Phosphorus Magnesium Iron TIBC Ferritin Direct Bilirubin ALT Lactate Dehydrogenase Troponin T C-Reactive Protein NT-Pro-B Natriuret Pep Total Protein Albumin LDL Cholesterol Direct HDL Cholesterol Arterial Blood Glucose Salicylates Acetaminophen Coronavirus (PCR) Crossmatch Chest x-ray: image reviewed Allied health notes reviewed: RT
--- NOTE | 2021-10-24 14:40 | Progress Note ---
Assessment and Plan Assessment and plan: This is a 86-year-old female with past medical history of HTN, CVA (2019), Alzheimer, DM, seizure disorder, right lower leg DVT (was on Xarelto), and CHF with pacemaker admitted for sepsis and acute hypoxic respiratory failure 2/2 COVID pneumonia requiring ventilatory support. Hospital Course to Date: 10/16: Patient COVID-19 PCR positive, given IVF, CVP measuring initiated, weaning levophed as tolerated. Started on remdesivir/vit c/vit d/ zinc. 10/17: Acute DVT noted in bilateral common femoral vein patient started on heparin drip, magnesium and potassium repleted, vent changes per [facility]. Started remdesivir yesterday. 10/18: Remains off Levophed, given 500 mL bolus of normal saline. Increase Lantus. Permissive hypercapnia per [facility]. 10/19: Hematology/oncology consulted due to acute on chronic DVT, remains on remdesivir/steroids/vancomycin and cefepime. Tracheal aspirate grew Staph aureus. Levophed remains off. BP and UOP improved after NS bolus yesterday 10/20: MRSA PCR negative, vancomycin discontinued and started on Ancef. heme/onc plans to discontinue heparin gtt and initiation of Lovenox. 10/21: Patient had desaturation x3 even after lavage with RT. Stat CXR ordered. Patient is anemic today and 1 unit of PRBC was ordered. However consent for blood transfusion was declined by son. Risk and benefits explained by RN and ASSISTANT MERCHANDISER for greater than 45 minutes total. 10/22: minimal vent setting, PSV today. given Kayexalate. Called Fan to give him an update but call sent to [employer], voice message left requesting a call back to hospitalist office at [phone] 10/23: ISHMAEL overnight. Plan for SBT/CPAP trial this am. Mild hyperkalemia this am, X1 dose pf Kayaxalate, FWF added for hypernatremia. 10/24: PST this am, ABG after 2hours. If ABG stable possible extubation today. [facility] had a thorough discussion with patient's son this am in regard to patient's POC. Low hbg this am, patient's son again declined blood transfusion for today. IV Iron [id number]. Continue FWF for hypernatremia. Basal insulin adjusted for hyperglycemia Assessement and Plan #Neuro:Alzheimer's Disease #Seizure Disorder #H/o CVA - Patient is nonverbal at baseline - Currently off sedation, open eyes spontaneously but does not follow commands - Keep sedation off for now - PRN analgesic for now for CPOT greater than 3 - Continue home Keppra - Avoid benzodiazepine to reduce the possibility of delirium - PRN analgesia for CPOT greater than 3 - Maintenance of sleep-wake cycle #Hypertension #Hypotension-resolved #CHF with PPM #H/o Hypertension - Vpacing on the monitor at 80 - Patient with marginal BP this am, off pressors this am - Levophed gtt is on standby - Hold home antihypertensive regimen at this time - Cardiology consulted, appreciate recommendations - 10/16 Echo with a EF 45 to 50%, RVSP 45-50 mmHg, moderate left ventricular hypertrophy, trace to small anterior pericardial effusion no tamponade - Elevated proBNP 6606 on admit, s/p IV Lasix - Strick I&Os - Daily weight - Continue Blood pressure monitoring per protocol - Maintain MAP above 65 #Acute Hypoxic Respiratory Failure #Bilateral Pneumonia #COVID Pneumonia - COVID Swab positive - Intubated in the ED on 10/15 - Vent setting:CPAP-35%,8, PS-10 - ABG pending - Possible extubation today - CCM consulted, appreciate recommendations - Continue IV Steroids and Nebs per CCM - VAP bundle addressed - Aspiration precaution HOB above 30 - Daily SBT and SAT trials as tolerated - Daily ABG and CXR - Continue SPO2 monitoring for SPO2 goal above 92% #GI:TF - Continue Enteral nutrition - Nutrition on consult - Continue PPI and BR #Hyperkalemia-improved #Hypernatremia - Elevated K and Na this am - X1 dose of kayaxalate - FWF - Strict intake and output - Avoid nephrotoxic medications; Renally dose medications - Monitor and replace electrolytes as needed - Trend BMP #Heme:Acute on Chronic DVT #Iron deficiency anemia #Thrombocytosis - Patient with a history of DVT was on Xarelto at home - Bilateral lower extremities doppler with acute bilateral common femoral DVT - CTA chest without PE - Hematology onsulted, appreciate recommendations - Continue AC- Lovenox - H&H dropped this am, CCM had thorough discussion with patient's still declining blood transfusion at this time - IV iron addedX3 days - NO BLOOD TRANSFUSION per patient's son - Continue to trend CBC #ID: Severe Sepsis with Shock #Bilateral Pneumonia #COVID Penumonia #Leukocytosis #Lactic Acidosis- resolved - Presented with low BP, elevated lactic, with leukocytosis - CXR showed B PNA - CT chest showed B consolidation (left greater than right) - Procalcitonin 39.5, CRP 26.9 - Sputum cult with + Staph Areurs - Infectious disease consulted, appreciate recommendations - s/p X5days Remdesevir - Continue IV Antibiotics per ID - Patient remains afebrile, leukocytosis downtrending - Continue to F/U on B.cult - Daily CBC monitor #Endo: Type 2 DM - Continue SSI Q6hrs - Basal insulin increased - Avoid Hypoglycemia The high probability of a clinically significant, sudden or life threatening deterioration of the [multi] system(s) required my full and direct attention, intervention and personal management. The aggregate critical care time was [60] minutes. This time is in addition to time spent performing reported procedures but includes the following: [x] Data Review and interpretation [x] Patient assessment and monitoring of vital signs [x] Documentation [x] Medication orders and management Disposition Plan: ICU Total Time Spent with Patient (Minutes): 60 History Interval history: Patient seen and examined at the bedside. Intubated, appears more awake this am. Still not following commands but does appear to be tracking. Per RN patient desated overnight that resolved with deep suctioning and lavage. Hospitalist Physical - Constitutional Vitals: Temp Pulse Resp BP Pulse Ox 97.9 F 80 25 H 130/66 100 10/24/21 04:00 10/24/21 14:30 10/24/21 14:30 10/24/21 14:30 10/24/21 14:30 General appearance: Present: mild distress, other (On the vent) - EENT Eyes: Present: PERRL - Respiratory Respiratory effort: normal Respiratory: bilateral: rhonchi - Cardiovascular Rhythm: regular (Vpaced) - Extremities Extremities: no ischemia, pulses intact, pulses symmetrical Extremity abnormal: edema Peripheral Pulses: within normal limits - Abdominal General gastrointestinal: soft, non-distended, normal bowel sounds - Integumentary Integumentary: Present: warm, dry - Psychiatric Psychiatric: other (NICOLE) - Neurologic Neurologic: other (Appear more awake today, still not following commands) - Allied Health Allied health notes reviewed: nursing HEART Score - HEART Score Age: > 65 Risk factors: 1-2 risk factors Troponin: Troponin T 0.015 ng/mL (0.00-0.029) 10/18/21 11:30 Troponin: 1-3x normal limit - Critical Actions Critical Actions: 4-6 pts:12-16.6% risk of adverse cardiac event. Should be admitted Results - Labs CBC & Chem 7: 10/24/21 06:05 10/24/21 06:05 Labs: Laboratory Last Values WBC 17.0 K/mm3 (4.5-11.0) H 10/24/21 06:05 RBC 2.67 M/mm3 (3.65-5.03) L 10/24/21 06:05 Hgb 6.4 gm/dl (10.1-14.3) L 10/24/21 06:05 Hct 21.1 % (30.3-42.9) L 10/24/21 06:05 MCV 79 fl (79-97) 10/24/21 06:05 MCH 24 pg (28-32) L 10/24/21 06:05 MCHC 31 % (30-34) 10/24/21 06:05 RDW 18.1 % (13.2-15.2) H 10/24/21 06:05 Plt Count 426 K/mm3 (140-440) 10/24/21 06:05 Add Manual Diff Complete 10/22/21 04:30 Total Counted 100 10/22/21 04:30 Seg Neutrophils % Pulper Tender 10/17/21 06:02 Seg Neuts % (Manual) 85.0 % (40.0-70.0) H 10/22/21 04:30 Band Neutrophils % 3.0 % 10/22/21 04:30 Lymphocytes % (Manual) 3.0 % (13.4-35.0) L 10/22/21 04:30 Reactive Lymphs % (Man) 0 % 10/22/21 04:30 Monocytes % (Manual) 2.0 % (0.0-7.3) 10/22/21 04:30 Eosinophils % (Manual) 0 % (0.0-4.3) 10/22/21 04:30 Basophils % (Manual) 0 % (0.0-1.8) 10/22/21 04:30 Metamyelocytes % 1.0 % 10/22/21 04:30 Myelocytes % 6.0 % 10/22/21 04:30 Promyelocytes % 0 % 10/22/21 04:30 Blast Cells % 0 % 10/22/21 04:30 Nucleated RBC % Not Reportable 10/22/21 04:30 Seg Neutrophils # Man 18.3 K/mm3 (1.8-7.7) H 10/22/21 04:30 Band Neutrophils # 0.6 K/mm3 10/22/21 04:30 Lymphocytes # (Manual) 0.6 K/mm3 (1.2-5.4) L 10/22/21 04:30 Abs React Lymphs (Man) 0.0 K/mm3 10/22/21 04:30 Monocytes # (Manual) 0.4 K/mm3 (0.0-0.8) 10/22/21 04:30 Eosinophils # (Manual) 0.0 K/mm3 (0.0-0.4) 10/22/21 04:30 Basophils # (Manual) 0.0 K/mm3 (0.0-0.1) 10/22/21 04:30 Metamyelocytes # 0.2 K/mm3 10/22/21 04:30 Myelocytes # 1.3 K/mm3 10/22/21 04:30 Promyelocytes # 0.0 K/mm3 10/22/21 04:30 Blast Cells # 0.0 K/mm3 10/22/21 04:30 WBC Morphology Not Reportable 10/22/21 04:30 Hypersegmented Neuts Not Reportable 10/22/21 04:30 Hyposegmented Neuts Not Reportable 10/22/21 04:30 Hypogranular Neuts Not Reportable 10/22/21 04:30 Smudge Cells Not Reportable 10/22/21 04:30 Toxic Granulation Not Reportable 10/22/21 04:30 Toxic Vacuolation Not Reportable 10/22/21 04:30 Dohle Bodies Not Reportable 10/22/21 04:30 Pelger-Huet Anomaly Not Reportable 10/22/21 04:30 Girma Rods Not Reportable 10/22/21 04:30 Platelet Estimate Consistent w auto 10/22/21 04:30 Clumped Platelets Not Reportable 10/22/21 04:30 Plt Clumps, EDTA Not Reportable 10/22/21 04:30 Large Platelets Not Reportable 10/22/21 04:30 Giant Platelets Not Reportable 10/22/21 04:30 Platelet Satelliting Not Reportable 10/22/21 04:30 Plt Morphology Comment Not Reportable 10/22/21 04:30 RBC Morphology Not Reportable 10/22/21 04:30 Dimorphic RBCs Not Reportable 10/22/21 04:30 Polychromasia Few 10/22/21 04:30 Hypochromasia 1+ 10/22/21 04:30 Poikilocytosis Not Reportable 10/22/21 04:30 Anisocytosis Not Reportable 10/22/21 04:30 Microcytosis Not Reportable 10/22/21 04:30 Macrocytosis Not Reportable 10/22/21 04:30 Spherocytes Not Reportable 10/22/21 04:30 Pappenheimer Bodies Not Reportable 10/22/21 04:30 Sickle Cells Not Reportable 10/22/21 04:30 Target Cells Rare 10/22/21 04:30 Tear Drop Cells Not Reportable 10/22/21 04:30 Ovalocytes Not Reportable 10/22/21 04:30 Helmet Cells Not Reportable 10/22/21 04:30 [place] Bodies Not Reportable 10/22/21 04:30 [place] Rings Not Reportable 10/22/21 04:30 Lucius Cells Not Reportable 10/22/21 04:30 Bite Cells Not Reportable 10/22/21 04:30 Crenated Cell Not Reportable 10/22/21 04:30 Elliptocytes Not Reportable 10/22/21 04:30 Acanthocytes (Spur) Not Reportable 10/22/21 04:30 Rouleaux Not Reportable 10/22/21 04:30 Hemoglobin C Crystals Not Reportable 10/22/21 04:30 Schistocytes Not Reportable 10/22/21 04:30 Malaria parasites Not Reportable 10/22/21 04:30 Brodie Bodies Not Reportable 10/22/21 04:30 Hem Pathologist Commnt No 10/22/21 04:30 PT 16.3 Sec. (12.2-14.9) H 10/20/21 18:05 INR 1.18 (0.87-1.13) H 10/20/21 18:05 APTT 38.0 Sec. (24.2-36.6) H 10/15/21 16:15 Fibrinogen 803 mg/dl (211-480) H 10/20/21 04:25 D-Dimer 1890.39 ng/mlDDU (0-234) H 10/23/21 05:15 Heparin Anti-Xa Level 0.63 U.I./ml (0.3-0.7) 10/22/21 12:40 ABG pH 7.390 pH Units (7.350-7.450) 10/24/21 12:30 POC ABG pCO2 48.1 mmHg (32.0-48.0) H 10/18/21 09:00 ABG pCO2 51.7 mm Hg 10/24/21 12:30 POC ABG pO2 103.0 mmHg (83-108) 10/18/21 09:00 ABG pO2 111.3 mm Hg (80.0-90.0) H 10/24/21 12:30 POC ABG HCO3 22.2 10/18/21 09:00 ABG HCO3 30.6 mmol/L (20.0-26.0) H 10/24/21 12:30 ABG O2 Saturation 97.8 % (95.0-99.0) 10/24/21 12:30 ABG O2 Content 12.4 (0.0-44) 10/24/21 12:30 POC ABG Base Excess -4.3 10/18/21 09:00 ABG Base Excess 4.9 mmol/L (-2.0-3.0) H 10/24/21 12:30 ABG Hemoglobin 9.0 gm/dl (12.0-16.0) L 10/24/21 12:30 ABG Oxyhemoglobin 95.4 (94-98) 10/18/21 09:00 ABG Carboxyhemoglobin 0.9 % (0.0-5.0) 10/24/21 12:30 ABG Methemoglobin 0.5 % (0.0-1.5) 10/24/21 12:30 ABG Sodium 136.8 mmol/L (136.0-145.0) 10/18/21 09:00 ABG Potassium 4.0 mmol/L (3.40-4.50) 10/18/21 09:00 ABG Chloride 104.0 mmol/L (98-107) 10/18/21 09:00 ABG Glucose 252 mg/dL (65-95) H 10/18/21 09:00 Oxyhemoglobin 96.5 % (95.0-99.0) 10/24/21 12:30 Carboxyhemoglobin 1.3 (0.5-1.5) 10/18/21 09:00 FiO2 50 % 10/24/21 12:30 FiO2 % 50 10/18/21 09:00 Sodium 147 mmol/L (137-145) H 10/24/21 06:05 Potassium 4.2 mmol/L (3.6-5.0) 10/24/21 06:05 Chloride 109.7 mmol/L (98-107) H 10/24/21 06:05 Carbon Dioxide 28 mmol/L (22-30) 10/24/21 06:05 Anion Gap 14 mmol/L 10/24/21 06:05 BUN 36 mg/dL (7-17) H 10/24/21 06:05 Creatinine 0.7 mg/dL (0.6-1.2) 10/24/21 06:05 Estimated GFR > 60 ml/min 10/24/21 06:05 BUN/Creatinine Ratio 51 % 10/24/21 06:05 Glucose 209 mg/dL (65-100) H 10/24/21 06:05 POC Glucose 154 mg/dL (70-105) H 10/24/21 12:01 Lactic Acid 1.20 mmol/L (0.7-2.0) 10/17/21 06:02 Calcium 8.8 mg/dL (8.4-10.2) 10/24/21 06:05 Phosphorus 2.40 mg/dL (2.5-4.5) L 10/23/21 05:15 Magnesium 1.90 mg/dL (1.7-2.3) 10/23/21 05:15 Iron 14 ug/dL (37-170) L 10/20/21 05:00 TIBC 138 mcg/dL (250-450) L 10/20/21 05:00 Ferritin 624.0 ng/mL (10.0-200.0) H 10/23/21 05:15 Total Bilirubin 0.20 mg/dL (0.1-1.2) 10/22/21 04:30 Direct Bilirubin 0.3 mg/dL (0-0.2) H 10/17/21 06:02 Indirect Bilirubin 0.1 mg/dL 10/17/21 06:02 AST 18 units/L (5-40) 10/22/21 04:30 ALT 5 units/L (7-56) L 10/22/21 04:30 Alkaline Phosphatase 69 units/L (35-129) 10/22/21 04:30 Ammonia 38.0 umol/L (25-60) 10/15/21 16:15 Lactate Dehydrogenase 329 units/L (91-180) H 10/23/21 05:15 Troponin T 0.015 ng/mL (0.00-0.029) 10/18/21 11:30 C-Reactive Protein 5.00 mg/dL (0.00-1.30) H 10/23/21 05:15 NT-Pro-B Natriuret Pep 6606 pg/mL (0-900) H 10/15/21 16:15 Total Protein 6.2 g/dL (6.3-8.2) L 10/22/21 04:30 Albumin 2.5 g/dL (3.9-5) L 10/22/21 04:30 Albumin/Globulin Ratio 0.7 % 10/22/21 04:30 Triglycerides 82 mg/dL (2-149) 10/19/21 02:40 Cholesterol 99 mg/dL (50-199) 10/15/21 18:00 LDL Cholesterol Direct 46 mg/dL (50-130) L 10/15/21 18:00 HDL Cholesterol 25 mg/dL (40-59) L 10/15/21 18:00 Cholesterol/HDL Ratio 3.96 % 10/15/21 18:00 Lipase 19 units/L (13-60) 10/15/21 16:15 Procalcitonin 39.51 ng/mL (<0.15) 10/16/21 23:31 Arterial Blood Glucose 252 mg/dL (65-95) H 10/18/21 09:00 Arterial Blood Ionized Calcium 4.7 mg/dL (4.6-5.3) 10/18/21 09:00 Urine Color Yellow (Yellow) 10/15/21 Unknown Urine Turbidity Cloudy (Clear) 10/15/21 Unknown Urine pH 5.0 (5.0-7.0) 10/15/21 Unknown Ur Specific [place] 1.016 (1.003-1.030) 10/15/21 Unknown Urine Protein >500 mg/dL (Negative) 10/15/21 Unknown Urine Glucose (UA) 50 mg/dL (Negative) 10/15/21 Unknown Urine Ketones Neg mg/dL (Negative) 10/15/21 Unknown Urine Blood Neg (Negative) 10/15/21 Unknown Urine Nitrite Neg (Negative) 10/15/21 Unknown Urine Bilirubin Neg (Negative) 10/15/21 Unknown Urine Urobilinogen < 2.0 mg/dL (<2.0) 10/15/21 Unknown Ur Leukocyte Esterase Neg (Negative) 10/15/21 Unknown Urine WBC (Auto) 5.0 /HPF (0.0-6.0) 10/15/21 Unknown Urine RBC (Auto) 2.0 /HPF (0.0-6.0) 10/15/21 Unknown U Epithel Cells (Auto) 2.0 /HPF (0-13.0) 10/15/21 Unknown Urine Bacteria (Auto) 1+ /HPF (Negative) 10/15/21 Unknown Calcium Oxalate Crystal 1+ 10/15/21 Unknown Amorphous Crystals 3+ 10/15/21 Unknown Urine Mucus Few /HPF 10/15/21 Unknown Urine Yeast (Budding) 1+ /HPF 10/15/21 Unknown Nasal Screen MRSA (PCR) Negative (Negative) 10/18/21 13:25 Salicylates < 0.3 mg/dL (2.8-20.0) L 10/15/21 16:15 Urine Opiates Screen Negative 10/15/21 Unknown Urine Methadone Screen Negative 10/15/21 Unknown Acetaminophen 5.0 ug/mL (10.0-30.0) L 10/15/21 16:15 Ur Barbiturates Screen Negative 10/15/21 Unknown Ur Phencyclidine Scrn Negative 10/15/21 Unknown Ur Amphetamines Screen Negative 10/15/21 Unknown U Benzodiazepines Scrn Negative 10/15/21 Unknown Urine Cocaine Screen Negative 10/15/21 Unknown U Marijuana (THC) Screen Negative 10/15/21 Unknown Drugs of Abuse Note Disclamer 10/15/21 Unknown Coronavirus (PCR) Positive (Negative) A 10/16/21 09:36 Blood Type A POSITIVE 10/21/21 08:35 Antibody Screen Negative 10/21/21 08:35 Crossmatch See Detail 10/21/21 08:35 Magallanes/IV: Voiding Method External Female Catheter Active Medications - Current Medications Current Medications: Generic Name Dose Route Start Last Admin Trade Name Freq PRN Reason Stop Dose Admin Acetaminophen 650 mg 10/16/21 00:57 10/16/21 21:51 Acetaminophen 325 Mg Tab PO 650 mg Q4H PRN Administration Pain MILD(1-3)/Fever >100.5/KEYS Lipase/Protease/Amylase 1 each 10/16/21 01:07 Lipase 10,500/Protease 25,000/Amylase 43,750 (Units) Dr Schuler FEEDTWILI PRN PRN For Clogged Feeding Tube Arformoterol Tartrate 15 mcg 10/21/21 20:00 10/24/21 08:02 Arformoterol 15 Mcg/2 Ml Nebu IH Not Given Q12HRT [facility] Ascorbic Acid 500 mg 10/17/21 10:00 10/24/21 09:23 Ascorbic Acid 500 Mg Tab PO 500 mg QDAY MUNA Administration Budesonide 0.5 mg 10/21/21 20:00 10/24/21 05:57 Budesonide 0.5 Mg/2 Ml Nebu IH Not Given Q12HRT [facility] Cholecalciferol 5,000 unit 10/17/21 10:00 10/24/21 09:23 Cholecalciferol (Vit D3) 5,000 Unit Tab PO 5,000 unit DAILY MUNA Administration Dexamethasone 8 mg 10/16/21 20:00 10/24/21 09:23 Dexamethasone 4 Mg Tab FEEDTUBE 10/25/21 10:01 8 mg QDAY MUNA Administration Famotidine 20 mg 10/17/21 22:00 10/24/21 09:23 Famotidine 20 Mg Tab FEEDTUBE 20 mg BID MUNA Administration Cefazolin Sodium 2 gm/ Sodium 100 mls @ 200 mls/hr 10/20/21 14:15 10/24/21 13:51 Chloride IV 10/25/21 02:44 200 mls/hr Q12H MUNA Administration Protocol Sodium Chloride 500 mls @ 0 mls/hr 10/24/21 13:37 Nacl 0.9% 500 Ml IV ONCE MUNA As Directed Insulin Glargine 20 units 10/24/21 22:00 Insulin Glargine 100 Units/Ml SUB-Q QHS MUNA Insulin Human Lispro 0 unit 10/16/21 09:00 10/24/21 13:47 Insulin Lispro 100 Unit/Ml SUB-Q 3 unit Q6HR MUNA Administration Protocol Levetiracetam 500 mg 10/16/21 11:00 10/24/21 09:23 Levetiracetam 500 Mg/5 Ml Oral Liqd PO 500 mg BID MUNA Administration Metoclopramide HCl 10 mg 10/16/21 01:02 Metoclopramide 10 Mg/2 Ml Inj IV Q6H PRN Nausea And Vomiting Ondansetron HCl 4 mg 10/16/21 00:57 Ondansetron 4 Mg/2 Ml Inj IV Q3H PRN Nausea And Vomiting Senna/Docusate Sodium 1 tab 10/16/21 22:00 10/23/21 21:02 Sennosides/Docusate Sodium 8.6/50 Mg Tab FEEDTUBE 1 tab QHS MNUA Administration Simple Syrup 15 ml 10/16/21 01:07 Simple Syrup 15 Ml FEEDTUBE PRN PRN Hypoglycemia Simple Syrup 30 ml 10/16/21 01:07 Simple Syrup 15 Ml FEEDTUBE PRN PRN Hypoglycemia Sodium Bicarbonate 325 mg 10/16/21 01:07 Sodium Bicarbonate 325 Mg Tab FEEDTUBE PRN PRN For Clogged Feeding Tube Sodium Chloride 10 ml 10/16/21 01:00 10/24/21 09:23 Sodium Chloride 0.9% 10 Ml Flush Syringe IV 10 ml BID MUNA Administration Sodium Chloride 10 ml 10/16/21 00:57 Sodium Chloride 0.9% 10 Ml Flush Syringe IV PRN PRN LINE FLUSH Sodium Chloride 5 ml 10/16/21 13:57 Sodium Chloride 0.9% 1000 Ml Iv Soln IV PRN PRN CVP Zinc Sulfate 220 mg 10/16/21 22:00 10/24/21 09:23 Zinc Sulfate 220 Mg Cap PO 220 mg BID MUNA Administration Nutrition/Malnutrition Assess - Dietary Evaluation Nutrition/Malnutrition Findings: Nutrition Notes Start: 10/16/21 10:33 Freq: Status: Active Protocol: Document 10/18/21 16:08 ANTIONE (Rec: 10/18/21 16:15 ANTIONE [id number]) Nutrition Notes Initial or Follow up Brief Note Current Diet TF-Promote @ 41 ml/hr (from L 10/16). Height 5 ft 5 in Weight 55 kg [place] Body Weight (kg) 56.81 BMI 20.1 Weight change and time frame No body weight change reported . Weight Status Appropriate Subjective/Other Information RD consult for routine F/U on TF tolerance. TF continues as prescribed, therefore, well tolerated. Percent of energy/protein needs met: Prescribed Promote @ 41 ml/hr provides for energy/protein needs (985 Kcal/62 g) during LOS, plus 43 Kcal from propofol. 100% Kcal; 93% AA. Current % PO Other Minimum of two criteria No #1 Nutrition Diagnosis Inadequate oral intake Diagnosis Progress(for reassessment Continues documentation) Nutrition Intervention Nutrition Support: Continue Promote @ 41 ml/hr. Flush: 30 ml water Q 4 hr, or as per MD. % RDI: 100% Kcal; 93% AA. Goal #1 Provide at least 75% of energy /protein needs through Enteral Feeding during LOS. Follow-Up By: 10/25/21 Additional Comments Continue monitoring TF tolerance and BM.
[2021-10-24 16:28] LABS: Cardiolipin Ab IgA 14.8 APL-U/mL (<20.0); Cardiolipin Ab IgG 5.4 GPL-U/mL (<20.0)
[2021-10-24] MEDS: SODIUM FERRIC GLUCON/SUCRO 125 MG in SODIUM CHLORIDE 0.9% 100 ML IV SCH (17:34)
[2021-10-24] MEDS ORDERED: INSULIN GLARGINE 100 UNITS/ML SUB-Q SCH (22:00)
[2021-10-24] MEDS: SENNOSIDES/DOCUSATE SODIUM 8.6/50 MG TAB FEEDTUBE SCH (22:41)
[2021-10-25] MEDS: FREE WATER PO SCH ×2 (02:11→05:33)
[2021-10-25] MEDS: INSULIN LISPRO 100 UNIT/ML SUB-Q SCH ×3 (05:44→18:31)
--- NOTE | 2021-10-25 07:15 | Progress Note ---
Assessment and Plan Acute hypoxemic respiratory failure on MVS h/o tracheotomy- decanulated Aspiration pneumonia Septic shock COVID-19 infection DVT CHF H/O CVA Adult FTT Leukocytosis Anemia that is microcytic Lactic acidosis Hypomagnesemia NSTEMI Oropharyngeal dysphagia-PEG in place Dementia Dose of Furosemide given, get CXR to evaluate the pulmonary parenchyma patient is to remain in the ICU for closer monitoring, she remains tenuous Free water flushes for hypernatremia Continue with bronchodilators and supplemental oxygen therapy - continue Cefazolin; de-escalate per ID recommendations - continue to wean supplemental oxygen for target O2 sat's > 90% acutely - continue lung protective strategies - continue bronchodilators with pulmonary hygiene per RT - wean per pulmonary driven protocols otherwise - continue to avoid nephrotoxins, renally dose all medications - continue mobility , off loading and frequent turning per facility protocol to prevent pressure ulcers - Wound care per RN/WCT -Enteric nutritional support via PEG - continue accuchecks with glycemic control per SSI (While critically ill target blood glucose of 140-180 mg/dL; avoid hypoglycemia) -maintain sleep-wake cycle, avoid delirium - Flu & pneumovax per protocol - continue other care per attending / other consultants - prn analgesia per pain score COVID SPECIFIC INTERVENTIONS - Remdesivir as per ID/Pulmonary developed protocols (Receiving) - Not as candidate for Actemra - continue systemic steroids for severe COVID-19 infection (Dexamethasone) - zinc and vitamin C supplementation - Monitor inflammatory markers per facility protocol - ferritin, Ddimer, CRP - therapeutic anticoagulation per system Protocol based on d-dimer and clinical considerations - Contact and airborne isolation per facility protocol CONDITION: CRITICAL PROGNOSIS: GUARDED CODE STATUS: FULL CODE The high probability of a clinically significant, sudden or life-threatening deterioration of the [respiratory, cardiovascular, hematologic and neurologic] system(s) required my full and direct attention, intervention and personal management. The aggregate critical care time was [33] minutes without overlap. Time includes spent on; [x] Data Review and interpretation [x] Patient assessment and monitoring of vital signs [x] Documentation [x] Medication orders and management Subjective Date of service: 10/25/21 Principal diagnosis: AHRF; Pneumonia; Septic shock; COVID-19 infection; CHF; DVT; NSTEMI Interval history: Patient is seen today for: AHRF; Aspiration pneumonia; Septic shock; COVID-19 infection; CHF; DVT; NSTEMI Seen and examined at bedside; 24hour events reviewed; nursing and respiratory care staff consulted; no adverse overnight events reported to me; resting peacefully in bed; extubated yesterday,awake, oxygen saturations are acceptable but she has some increased work of breathing Objective Vital Signs - 12hr 10/24/21 10/24/21 10/24/21 19:30 20:00 20:30 Temperature 97.6 F Pulse Rate 80 80 80 Pulse Rate [ Anterior Bilateral Throughout] Pulse Rate [ 80 From Monitor] Respiratory 22 19 26 H Rate Respiratory Rate [Anterior Bilateral Throughout] Blood Pressure 111/59 139/74 134/67 O2 Sat by Pulse 100 100 98 Oximetry 10/24/21 10/24/21 10/24/21 20:51 20:52 21:00 Temperature Pulse Rate 80 Pulse Rate [ 91 H Anterior Bilateral Throughout] Pulse Rate [ From Monitor] Respiratory 25 H Rate Respiratory 22 Rate [Anterior Bilateral Throughout] Blood Pressure 123/65 O2 Sat by Pulse 96 97 Oximetry 10/24/21 10/24/21 10/24/21 21:08 21:30 22:00 Temperature Pulse Rate 80 80 80 Pulse Rate [ Anterior Bilateral Throughout] Pulse Rate [ From Monitor] Respiratory 27 H 26 H Rate Respiratory Rate [Anterior Bilateral Throughout] Blood Pressure 123/65 129/64 O2 Sat by Pulse 100 96 Oximetry 10/24/21 10/24/21 10/24/21 22:30 23:00 23:02 Temperature Pulse Rate 80 80 80 Pulse Rate [ Anterior Bilateral Throughout] Pulse Rate [ From Monitor] Respiratory 27 H 35 H 29 H Rate Respiratory Rate [Anterior Bilateral Throughout] Blood Pressure 142/71 142/71 154/79 O2 Sat by Pulse 100 99 100 Oximetry 10/24/21 10/25/21 10/25/21 23:30 00:00 00:30 Temperature 97.8 F Pulse Rate 80 79 80 Pulse Rate [ Anterior Bilateral Throughout] Pulse Rate [ 80 From Monitor] Respiratory 29 H 27 H 29 H Rate Respiratory Rate [Anterior Bilateral Throughout] Blood Pressure 150/75 127/66 148/73 O2 Sat by Pulse 99 100 100 Oximetry 10/25/21 10/25/21 10/25/21 01:00 01:30 02:00 Temperature Pulse Rate 80 80 80 Pulse Rate [ Anterior Bilateral Throughout] Pulse Rate [ From Monitor] Respiratory 27 H 25 H 24 Rate Respiratory Rate [Anterior Bilateral Throughout] Blood Pressure 123/64 117/59 102/52 O2 Sat by Pulse 100 100 100 Oximetry 10/25/21 10/25/21 10/25/21 02:30 03:00 03:30 Temperature Pulse Rate 80 80 80 Pulse Rate [ Anterior Bilateral Throughout] Pulse Rate [ From Monitor] Respiratory 26 H 26 H 31 H Rate Respiratory Rate [Anterior Bilateral Throughout] Blood Pressure 134/68 180/81 150/70 O2 Sat by Pulse 100 99 88 Oximetry 10/25/21 10/25/21 10/25/21 04:00 04:30 05:00 Temperature 98.8 F Pulse Rate 80 80 80 Pulse Rate [ Anterior Bilateral Throughout] Pulse Rate [ 80 From Monitor] Respiratory 28 H 28 H 28 H Rate Respiratory Rate [Anterior Bilateral Throughout] Blood Pressure 131/63 133/67 141/69 O2 Sat by Pulse 94 96 95 Oximetry 10/25/21 10/25/21 10/25/21 05:30 06:00 06:09 Temperature Pulse Rate 80 80 Pulse Rate [ Anterior Bilateral Throughout] Pulse Rate [ From Monitor] Respiratory 27 H 25 H Rate Respiratory Rate [Anterior Bilateral Throughout] Blood Pressure 131/66 125/69 O2 Sat by Pulse 98 97 96 Oximetry 10/25/21 10/25/21 06:30 07:00 Temperature Pulse Rate 80 80 Pulse Rate [ Anterior Bilateral Throughout] Pulse Rate [ From Monitor] Respiratory 25 H 24 Rate Respiratory Rate [Anterior Bilateral Throughout] Blood Pressure 125/68 117/58 O2 Sat by Pulse 99 98 Oximetry Constitutional: no acute distress, other (elderly and chronically ill looking female with mildly increased respiratory effort at rest) Eyes: non-icteric ENT: oropharynx moist Neck: supple, no lymphadenopathy, no JVD Effort: mildly labored Ascultation: Bilateral: diminished breath sounds, rhonchi Percussion: Bilateral: not dull Cardiovascular: regular rate and rhythm Gastrointestinal: normoactive bowel sounds, soft, non-tender, non-distended, other (PEG tube) Integumentary: rash (xeroderma type) Extremities: no cyanosis, no edema Neurologic: pupils equal and round, unable to assess Psychiatric: other (unable to assess re: AMS) CBC and BMP: 10/25/21 17:09 10/25/21 17:09 ABG, PT/INR, D-dimer: ABG ABG pH 7.390 pH Units (7.350-7.450) 10/24/21 12:30 POC ABG pCO2 48.1 mmHg (32.0-48.0) H 10/18/21 09:00 ABG pCO2 51.7 mm Hg 10/24/21 12:30 POC ABG pO2 103.0 mmHg (83-108) 10/18/21 09:00 ABG pO2 111.3 mm Hg (80.0-90.0) H 10/24/21 12:30 POC ABG HCO3 22.2 10/18/21 09:00 ABG O2 Saturation 97.8 % (95.0-99.0) 10/24/21 12:30 PT/INR, D-dimer PT 16.3 Sec. (12.2-14.9) H 10/20/21 18:05 INR 1.18 (0.87-1.13) H 10/20/21 18:05 D-Dimer 1890.39 ng/mlDDU (0-234) H 10/23/21 05:15 Abnormal lab findings: Abnormal Labs 10/15/21 10/15/21 10/15/21 16:15 16:15 16:15 WBC 17.2 H RBC Hgb 9.0 L Hct 29.7 L MCV 78 L MCH 24 L RDW 17.5 H Plt Count Seg Neuts % (Manual) 88.0 H Lymphocytes % (Manual) 3.0 L Nucleated RBC % Seg Neutrophils # Man 15.1 H Lymphocytes # (Manual) 0.5 L PT INR APTT 38.0 H Fibrinogen D-Dimer 7433.97 H Heparin Anti-Xa Level ABG pH POC ABG pCO2 ABG pO2 ABG HCO3 ABG O2 Saturation ABG Base Excess ABG Hemoglobin ABG Sodium ABG Chloride ABG Glucose Oxyhemoglobin Sodium Potassium Chloride Carbon Dioxide BUN Glucose POC Glucose Lactic Acid 5.60 H* Calcium Phosphorus Magnesium Iron TIBC Ferritin Direct Bilirubin ALT Lactate Dehydrogenase Troponin T C-Reactive Protein NT-Pro-B Natriuret Pep Total Protein Albumin LDL Cholesterol Direct HDL Cholesterol Arterial Blood Glucose Salicylates Acetaminophen Cardiolipid IgM Ab Coronavirus (PCR) Crossmatch 10/15/21 10/15/21 10/15/21 16:15 16:15 16:15 WBC RBC Hgb Hct MCV MCH RDW Plt Count Seg Neuts % (Manual) Lymphocytes % (Manual) Nucleated RBC % Seg Neutrophils # Man Lymphocytes # (Manual) PT INR APTT Fibrinogen D-Dimer Heparin Anti-Xa Level ABG pH POC ABG pCO2 ABG pO2 ABG HCO3 ABG O2 Saturation ABG Base Excess ABG Hemoglobin ABG Sodium ABG Chloride ABG Glucose Oxyhemoglobin Sodium 134 L Potassium Chloride 89.6 L Carbon Dioxide BUN 27 H Glucose 234 H POC Glucose Lactic Acid Calcium Phosphorus Magnesium 1.40 L Iron TIBC Ferritin Direct Bilirubin 0.3 H ALT Lactate Dehydrogenase Troponin T C-Reactive Protein NT-Pro-B Natriuret Pep 6606 H Total Protein 6.2 L Albumin 3.1 L LDL Cholesterol Direct HDL Cholesterol Arterial Blood Glucose Salicylates < 0.3 L Acetaminophen 5.0 L Cardiolipid IgM Ab Coronavirus (PCR) Crossmatch 10/15/21 10/15/21 10/15/21 16:15 16:15 16:15 WBC RBC Hgb Hct MCV MCH RDW Plt Count Seg Neuts % (Manual) Lymphocytes % (Manual) Nucleated RBC % Seg Neutrophils # Man Lymphocytes # (Manual) PT INR APTT Fibrinogen D-Dimer Heparin Anti-Xa Level ABG pH POC ABG pCO2 ABG pO2 ABG HCO3 ABG O2 Saturation ABG Base Excess ABG Hemoglobin ABG Sodium ABG Chloride ABG Glucose Oxyhemoglobin Sodium Potassium Chloride Carbon Dioxide BUN Glucose 221 H POC Glucose Lactic Acid Calcium Phosphorus Magnesium Iron TIBC Ferritin 418.8 H 421.6 H Direct Bilirubin ALT Lactate Dehydrogenase 233 H Troponin T C-Reactive Protein 25.90 H NT-Pro-B Natriuret Pep Total Protein Albumin LDL Cholesterol Direct HDL Cholesterol Arterial Blood Glucose Salicylates Acetaminophen Cardiolipid IgM Ab Coronavirus (PCR) Crossmatch 10/15/21 10/15/21 10/15/21 16:42 18:00 18:00 WBC RBC Hgb Hct MCV MCH RDW Plt Count Seg Neuts % (Manual) Lymphocytes % (Manual) Nucleated RBC % Seg Neutrophils # Man Lymphocytes # (Manual) PT INR APTT Fibrinogen D-Dimer Heparin Anti-Xa Level ABG pH 7.348 L POC ABG pCO2 ABG pO2 75.4 L ABG HCO3 30.6 H ABG O2 Saturation 94.3 L ABG Base Excess 3.9 H ABG Hemoglobin 10.9 L ABG Sodium ABG Chloride ABG Glucose Oxyhemoglobin 93.1 L Sodium Potassium Chloride Carbon Dioxide BUN Glucose POC Glucose Lactic Acid 3.10 H* Calcium Phosphorus Magnesium Iron TIBC Ferritin Direct Bilirubin ALT Lactate Dehydrogenase Troponin T 0.036 H C-Reactive Protein NT-Pro-B Natriuret Pep Total Protein Albumin LDL Cholesterol Direct 46 L HDL Cholesterol 25 L Arterial Blood Glucose Salicylates Acetaminophen Cardiolipid IgM Ab Coronavirus (PCR) Crossmatch 10/15/21 10/16/21 10/16/21 20:58 01:55 04:50 WBC RBC Hgb Hct MCV MCH RDW Plt Count Seg Neuts % (Manual) Lymphocytes % (Manual) Nucleated RBC % Seg Neutrophils # Man Lymphocytes # (Manual) PT INR APTT Fibrinogen D-Dimer Heparin Anti-Xa Level ABG pH 7.490 H POC ABG pCO2 ABG pO2 ABG HCO3 ABG O2 Saturation ABG Base Excess ABG Hemoglobin 9.7 L ABG Sodium 128.9 L ABG Chloride 96.0 L ABG Glucose 235 H Oxyhemoglobin Sodium 135 L Potassium Chloride 94.9 L Carbon Dioxide BUN 28 H Glucose 226 H POC Glucose Lactic Acid Calcium Phosphorus Magnesium Iron TIBC Ferritin Direct Bilirubin ALT Lactate Dehydrogenase Troponin T 0.038 H C-Reactive Protein NT-Pro-B Natriuret Pep Total Protein Albumin LDL Cholesterol Direct HDL Cholesterol Arterial Blood Glucose 235 H Salicylates Acetaminophen Cardiolipid IgM Ab Coronavirus (PCR) Crossmatch 10/16/21 10/16/21 10/16/21 09:05 09:05 09:05 WBC 14.9 H RBC 3.20 L Hgb 7.6 L Hct 24.8 L MCV 77 L MCH 24 L RDW 17.5 H Plt Count Seg Neuts % (Manual) Lymphocytes % (Manual) Nucleated RBC % Seg Neutrophils # Man Lymphocytes # (Manual) PT INR APTT Fibrinogen D-Dimer Heparin Anti-Xa Level ABG pH POC ABG pCO2 ABG pO2 ABG HCO3 ABG O2 Saturation ABG Base Excess ABG Hemoglobin ABG Sodium ABG Chloride ABG Glucose Oxyhemoglobin Sodium 132 L Potassium Chloride 93.2 L Carbon Dioxide BUN 28 H Glucose 225 H POC Glucose Lactic Acid 2.30 H* Calcium 8.3 L Phosphorus Magnesium 1.30 L Iron TIBC Ferritin Direct Bilirubin ALT Lactate Dehydrogenase Troponin T C-Reactive Protein NT-Pro-B Natriuret Pep Total Protein 5.7 L Albumin 2.4 L LDL Cholesterol Direct HDL Cholesterol Arterial Blood Glucose Salicylates Acetaminophen Cardiolipid IgM Ab Coronavirus (PCR) Crossmatch 10/16/21 10/16/21 10/16/21 09:05 09:36 12:24 WBC RBC Hgb Hct MCV MCH RDW Plt Count Seg Neuts % (Manual) Lymphocytes % (Manual) Nucleated RBC % Seg Neutrophils # Man Lymphocytes # (Manual) PT INR APTT Fibrinogen D-Dimer Heparin Anti-Xa Level ABG pH POC ABG pCO2 ABG pO2 ABG HCO3 ABG O2 Saturation ABG Base Excess ABG Hemoglobin ABG Sodium ABG Chloride ABG Glucose Oxyhemoglobin Sodium Potassium Chloride Carbon Dioxide BUN Glucose POC Glucose 187 H Lactic Acid Calcium Phosphorus 2.10 L Magnesium Iron TIBC Ferritin Direct Bilirubin ALT Lactate Dehydrogenase Troponin T C-Reactive Protein NT-Pro-B Natriuret Pep Total Protein Albumin LDL Cholesterol Direct HDL Cholesterol Arterial Blood Glucose Salicylates Acetaminophen Cardiolipid IgM Ab Coronavirus (PCR) Positive A Crossmatch 10/16/21 10/16/21 10/16/21 17:19 21:00 23:31 WBC RBC Hgb Hct MCV MCH RDW Plt Count Seg Neuts % (Manual) Lymphocytes % (Manual) Nucleated RBC % Seg Neutrophils # Man Lymphocytes # (Manual) PT INR APTT Fibrinogen D-Dimer Heparin Anti-Xa Level ABG pH POC ABG pCO2 ABG pO2 ABG HCO3 ABG O2 Saturation ABG Base Excess ABG Hemoglobin ABG Sodium ABG Chloride ABG Glucose Oxyhemoglobin Sodium Potassium Chloride Carbon Dioxide BUN Glucose POC Glucose 128 H 132 H Lactic Acid Calcium Phosphorus Magnesium Iron TIBC Ferritin Direct Bilirubin ALT Lactate Dehydrogenase 216 H Troponin T C-Reactive Protein 26.90 H NT-Pro-B Natriuret Pep Total Protein Albumin LDL Cholesterol Direct HDL Cholesterol Arterial Blood Glucose Salicylates Acetaminophen Cardiolipid IgM Ab Coronavirus (PCR) Crossmatch 10/16/21 10/17/21 10/17/21 23:31 06:02 06:02 WBC 16.7 H RBC 3.16 L Hgb 7.6 L Hct 24.2 L MCV 77 L MCH 24 L RDW 17.7 H Plt Count Seg Neuts % (Manual) 95.0 H Lymphocytes % (Manual) 1.0 L Nucleated RBC % Seg Neutrophils # Man 15.9 H Lymphocytes # (Manual) 0.2 L PT INR APTT Fibrinogen D-Dimer Heparin Anti-Xa Level ABG pH POC ABG pCO2 ABG pO2 ABG HCO3 ABG O2 Saturation ABG Base Excess ABG Hemoglobin ABG Sodium ABG Chloride ABG Glucose Oxyhemoglobin Sodium Potassium Chloride Carbon Dioxide BUN 32 H Glucose 163 H POC Glucose Lactic Acid Calcium 7.8 L Phosphorus Magnesium Iron TIBC Ferritin 428.7 H Direct Bilirubin ALT Lactate Dehydrogenase Troponin T C-Reactive Protein NT-Pro-B Natriuret Pep Total Protein 5.7 L Albumin 2.3 L LDL Cholesterol Direct HDL Cholesterol Arterial Blood Glucose Salicylates Acetaminophen Cardiolipid IgM Ab Coronavirus (PCR) Crossmatch 10/17/21 10/17/21 10/17/21 06:02 06:02 06:21 WBC RBC Hgb Hct MCV MCH RDW Plt Count Seg Neuts % (Manual) Lymphocytes % (Manual) Nucleated RBC % Seg Neutrophils # Man Lymphocytes # (Manual) PT INR APTT Fibrinogen D-Dimer Heparin Anti-Xa Level ABG pH POC ABG pCO2 ABG pO2 ABG HCO3 ABG O2 Saturation ABG Base Excess ABG Hemoglobin ABG Sodium ABG Chloride ABG Glucose Oxyhemoglobin Sodium Potassium 3.5 L Chloride Carbon Dioxide BUN 32 H Glucose 216 H POC Glucose 219 H Lactic Acid Calcium Phosphorus Magnesium 1.40 L Iron TIBC Ferritin Direct Bilirubin 0.3 H ALT Lactate Dehydrogenase 257 H Troponin T C-Reactive Protein 28.50 H NT-Pro-B Natriuret Pep Total Protein 5.8 L Albumin 2.3 L LDL Cholesterol Direct HDL Cholesterol Arterial Blood Glucose Salicylates Acetaminophen Cardiolipid IgM Ab Coronavirus (PCR) Crossmatch 10/17/21 10/17/21 10/17/21 08:35 12:38 17:35 WBC RBC Hgb Hct MCV MCH RDW Plt Count Seg Neuts % (Manual) Lymphocytes % (Manual) Nucleated RBC % Seg Neutrophils # Man Lymphocytes # (Manual) PT INR APTT Fibrinogen D-Dimer Heparin Anti-Xa Level ABG pH POC ABG pCO2 ABG pO2 ABG HCO3 ABG O2 Saturation ABG Base Excess ABG Hemoglobin ABG Sodium ABG Chloride ABG Glucose Oxyhemoglobin Sodium Potassium Chloride Carbon Dioxide BUN Glucose POC Glucose 216 H 262 H 230 H Lactic Acid Calcium Phosphorus Magnesium Iron TIBC Ferritin Direct Bilirubin ALT Lactate Dehydrogenase Troponin T C-Reactive Protein NT-Pro-B Natriuret Pep Total Protein Albumin LDL Cholesterol Direct HDL Cholesterol Arterial Blood Glucose Salicylates Acetaminophen Cardiolipid IgM Ab Coronavirus (PCR) Crossmatch 0110/17/21 10/18/21 18:20 22:17 00:16 WBC RBC Hgb Hct MCV MCH RDW Plt Count Seg Neuts % (Manual) Lymphocytes % (Manual) Nucleated RBC % Seg Neutrophils # Man Lymphocytes # (Manual) PT INR APTT Fibrinogen D-Dimer Heparin Anti-Xa Level 0.24 L ABG pH POC ABG pCO2 ABG pO2 ABG HCO3 ABG O2 Saturation ABG Base Excess ABG Hemoglobin ABG Sodium ABG Chloride ABG Glucose Oxyhemoglobin Sodium Potassium Chloride Carbon Dioxide BUN Glucose POC Glucose 215 H 247 H Lactic Acid Calcium Phosphorus Magnesium Iron TIBC Ferritin Direct Bilirubin ALT Lactate Dehydrogenase Troponin T C-Reactive Protein NT-Pro-B Natriuret Pep Total Protein Albumin LDL Cholesterol Direct HDL Cholesterol Arterial Blood Glucose Salicylates Acetaminophen Cardiolipid IgM Ab Coronavirus (PCR) Crossmatch 10/18/21 10/18/21 10/18/21 04:40 04:40 05:00 WBC RBC Hgb Hct MCV MCH RDW Plt Count Seg Neuts % (Manual) Lymphocytes % (Manual) Nucleated RBC % Seg Neutrophils # Man Lymphocytes # (Manual) PT INR APTT Fibrinogen D-Dimer 2424.98 H Heparin Anti-Xa Level ABG pH POC ABG pCO2 ABG pO2 ABG HCO3 ABG O2 Saturation ABG Base Excess ABG Hemoglobin ABG Sodium ABG Chloride ABG Glucose Oxyhemoglobin Sodium Potassium Chloride Carbon Dioxide BUN 44 H Glucose 286 H POC Glucose Lactic Acid Calcium 7.8 L Phosphorus Magnesium 2.60 H Iron TIBC Ferritin Direct Bilirubin ALT Lactate Dehydrogenase Troponin T C-Reactive Protein NT-Pro-B Natriuret Pep Total Protein 5.7 L Albumin 2.2 L LDL Cholesterol Direct HDL Cholesterol Arterial Blood Glucose Salicylates Acetaminophen Cardiolipid IgM Ab Coronavirus (PCR) Crossmatch 10/18/21 10/18/21 10/18/21 05:16 05:39 07:29 WBC 16.4 H RBC 3.03 L Hgb 7.3 L Hct 23.5 L MCV 78 L MCH 24 L RDW 17.9 H Plt Count Seg Neuts % (Manual) Lymphocytes % (Manual) Nucleated RBC % Seg Neutrophils # Man Lymphocytes # (Manual) PT INR APTT Fibrinogen D-Dimer Heparin Anti-Xa Level ABG pH POC ABG pCO2 ABG pO2 ABG HCO3 ABG O2 Saturation ABG Base Excess ABG Hemoglobin ABG Sodium ABG Chloride ABG Glucose Oxyhemoglobin Sodium Potassium Chloride Carbon Dioxide BUN Glucose POC Glucose 281 H 274 H Lactic Acid Calcium Phosphorus Magnesium Iron TIBC Ferritin Direct Bilirubin ALT Lactate Dehydrogenase Troponin T C-Reactive Protein NT-Pro-B Natriuret Pep Total Protein Albumin LDL Cholesterol Direct HDL Cholesterol Arterial Blood Glucose Salicylates Acetaminophen Cardiolipid IgM Ab Coronavirus (PCR) Crossmatch 10/18/21 10/18/21 10/18/21 09:00 11:27 11:30 WBC RBC Hgb Hct MCV MCH RDW Plt Count Seg Neuts % (Manual) Lymphocytes % (Manual) Nucleated RBC % Seg Neutrophils # Man Lymphocytes # (Manual) PT INR APTT Fibrinogen D-Dimer Heparin Anti-Xa Level 0.24 L ABG pH 7.282 L POC ABG pCO2 48.1 H ABG pO2 ABG HCO3 ABG O2 Saturation ABG Base Excess ABG Hemoglobin 7.6 L ABG Sodium ABG Chloride ABG Glucose 252 H Oxyhemoglobin Sodium Potassium Chloride Carbon Dioxide BUN Glucose POC Glucose 219 H Lactic Acid Calcium Phosphorus Magnesium Iron TIBC Ferritin Direct Bilirubin ALT Lactate Dehydrogenase Troponin T C-Reactive Protein NT-Pro-B Natriuret Pep Total Protein Albumin LDL Cholesterol Direct HDL Cholesterol Arterial Blood Glucose 252 H Salicylates Acetaminophen Cardiolipid IgM Ab Coronavirus (PCR) Crossmatch 10/18/21 10/18/21 10/18/21 15:58 19:56 23:21 WBC RBC Hgb Hct MCV MCH RDW Plt Count Seg Neuts % (Manual) Lymphocytes % (Manual) Nucleated RBC % Seg Neutrophils # Man Lymphocytes # (Manual) PT INR APTT Fibrinogen D-Dimer Heparin Anti-Xa Level 0.22 L ABG pH POC ABG pCO2 ABG pO2 ABG HCO3 ABG O2 Saturation ABG Base Excess ABG Hemoglobin ABG Sodium ABG Chloride ABG Glucose Oxyhemoglobin Sodium Potassium Chloride Carbon Dioxide BUN Glucose POC Glucose 264 H 198 H Lactic Acid Calcium Phosphorus Magnesium Iron TIBC Ferritin Direct Bilirubin ALT Lactate Dehydrogenase Troponin T C-Reactive Protein NT-Pro-B Natriuret Pep Total Protein Albumin LDL Cholesterol Direct HDL Cholesterol Arterial Blood Glucose Salicylates Acetaminophen Cardiolipid IgM Ab Coronavirus (PCR) Crossmatch 10/19/21 10/19/21 10/19/21 02:40 02:40 02:40 WBC RBC Hgb Hct MCV MCH RDW Plt Count Seg Neuts % (Manual) Lymphocytes % (Manual) Nucleated RBC % Seg Neutrophils # Man Lymphocytes # (Manual) PT INR APTT Fibrinogen D-Dimer Heparin Anti-Xa Level ABG pH POC ABG pCO2 ABG pO2 ABG HCO3 ABG O2 Saturation ABG Base Excess ABG Hemoglobin ABG Sodium ABG Chloride ABG Glucose Oxyhemoglobin Sodium Potassium Chloride Carbon Dioxide BUN 49 H Glucose 167 H POC Glucose Lactic Acid Calcium Phosphorus Magnesium Iron TIBC Ferritin 383.0 H Direct Bilirubin ALT Lactate Dehydrogenase 223 H Troponin T C-Reactive Protein 9.30 H NT-Pro-B Natriuret Pep Total Protein 6.2 L Albumin 2.5 L LDL Cholesterol Direct HDL Cholesterol Arterial Blood Glucose Salicylates Acetaminophen Cardiolipid IgM Ab Coronavirus (PCR) Crossmatch 10/19/21 10/19/21 10/19/21 02:40 02:40 05:06 WBC 15.5 H RBC 3.13 L Hgb 7.5 L Hct 24.3 L MCV 77 L MCH 24 L RDW 17.8 H Plt Count Seg Neuts % (Manual) Lymphocytes % (Manual) Nucleated RBC % Seg Neutrophils # Man Lymphocytes # (Manual) PT INR APTT Fibrinogen D-Dimer Heparin Anti-Xa Level 0.17 L ABG pH POC ABG pCO2 ABG pO2 ABG HCO3 ABG O2 Saturation ABG Base Excess ABG Hemoglobin ABG Sodium ABG Chloride ABG Glucose Oxyhemoglobin Sodium Potassium Chloride Carbon Dioxide BUN Glucose POC Glucose 152 H Lactic Acid Calcium Phosphorus Magnesium Iron TIBC Ferritin Direct Bilirubin ALT Lactate Dehydrogenase Troponin T C-Reactive Protein NT-Pro-B Natriuret Pep Total Protein Albumin LDL Cholesterol Direct HDL Cholesterol Arterial Blood Glucose Salicylates Acetaminophen Cardiolipid IgM Ab Coronavirus (PCR) Crossmatch 10/19/21 10/19/21 10/19/21 11:40 16:06 23:55 WBC RBC Hgb Hct MCV MCH RDW Plt Count Seg Neuts % (Manual) Lymphocytes % (Manual) Nucleated RBC % Seg Neutrophils # Man Lymphocytes # (Manual) PT INR APTT Fibrinogen D-Dimer Heparin Anti-Xa Level ABG pH POC ABG pCO2 ABG pO2 ABG HCO3 ABG O2 Saturation ABG Base Excess ABG Hemoglobin ABG Sodium ABG Chloride ABG Glucose Oxyhemoglobin Sodium Potassium Chloride Carbon Dioxide BUN Glucose POC Glucose 146 H 244 H 229 H Lactic Acid Calcium Phosphorus Magnesium Iron TIBC Ferritin Direct Bilirubin ALT Lactate Dehydrogenase Troponin T C-Reactive Protein NT-Pro-B Natriuret Pep Total Protein Albumin LDL Cholesterol Direct HDL Cholesterol Arterial Blood Glucose Salicylates Acetaminophen Cardiolipid IgM Ab Coronavirus (PCR) Crossmatch 10/20/21 10/20/21 10/20/21 04:25 05:00 05:00 WBC 16.2 H RBC 3.04 L Hgb 7.3 L Hct 23.6 L MCV 78 L MCH 24 L RDW 18.0 H Plt Count Seg Neuts % (Manual) 85.0 H Lymphocytes % (Manual) 6.0 L Nucleated RBC % 1.0 H Seg Neutrophils # Man 13.8 H Lymphocytes # (Manual) 1.0 L PT INR APTT Fibrinogen 803 H D-Dimer 1817.20 H Heparin Anti-Xa Level ABG pH POC ABG pCO2 ABG pO2 ABG HCO3 ABG O2 Saturation ABG Base Excess ABG Hemoglobin ABG Sodium ABG Chloride ABG Glucose Oxyhemoglobin Sodium Potassium Chloride 108.5 H Carbon Dioxide 21 L BUN 49 H Glucose 186 H POC Glucose Lactic Acid Calcium Phosphorus Magnesium Iron 14 L TIBC 138 L Ferritin Direct Bilirubin ALT Lactate Dehydrogenase Troponin T C-Reactive Protein NT-Pro-B Natriuret Pep Total Protein 5.7 L Albumin 2.4 L LDL Cholesterol Direct HDL Cholesterol Arterial Blood Glucose Salicylates Acetaminophen Cardiolipid IgM Ab Coronavirus (PCR) Crossmatch 10/20/21 10/20/21 10/20/21 05:11 10:45 12:14 WBC RBC Hgb Hct MCV MCH RDW Plt Count Seg Neuts % (Manual) Lymphocytes % (Manual) Nucleated RBC % Seg Neutrophils # Man Lymphocytes # (Manual) PT INR APTT Fibrinogen D-Dimer Heparin Anti-Xa Level 0.14 L ABG pH POC ABG pCO2 ABG pO2 ABG HCO3 ABG O2 Saturation ABG Base Excess ABG Hemoglobin ABG Sodium ABG Chloride ABG Glucose Oxyhemoglobin Sodium Potassium Chloride Carbon Dioxide BUN Glucose POC Glucose 181 H 192 H Lactic Acid Calcium Phosphorus Magnesium Iron TIBC Ferritin Direct Bilirubin ALT Lactate Dehydrogenase Troponin T C-Reactive Protein NT-Pro-B Natriuret Pep Total Protein Albumin LDL Cholesterol Direct HDL Cholesterol Arterial Blood Glucose Salicylates Acetaminophen Cardiolipid IgM Ab Coronavirus (PCR) Crossmatch 10/20/21 10/20/21 10/20/21 13:45 17:16 18:05 WBC RBC Hgb Hct MCV MCH RDW Plt Count Seg Neuts % (Manual) Lymphocytes % (Manual) Nucleated RBC % Seg Neutrophils # Man Lymphocytes # (Manual) PT 16.3 H INR 1.18 H APTT Fibrinogen D-Dimer Heparin Anti-Xa Level ABG pH POC ABG pCO2 ABG pO2 ABG HCO3 ABG O2 Saturation ABG Base Excess ABG Hemoglobin 7.9 L ABG Sodium ABG Chloride ABG Glucose Oxyhemoglobin Sodium Potassium Chloride Carbon Dioxide BUN Glucose POC Glucose 182 H Lactic Acid Calcium Phosphorus Magnesium Iron TIBC Ferritin Direct Bilirubin ALT Lactate Dehydrogenase Troponin T C-Reactive Protein NT-Pro-B Natriuret Pep Total Protein Albumin LDL Cholesterol Direct HDL Cholesterol Arterial Blood Glucose Salicylates Acetaminophen Cardiolipid IgM Ab Coronavirus (PCR) Crossmatch 10/20/21 10/21/21 10/21/21 Unknown 00:23 04:53 WBC 18.6 H RBC 2.88 L Hgb 6.8 L Hct 22.1 L MCV 77 L MCH 24 L RDW 18.2 H Plt Count Seg Neuts % (Manual) Lymphocytes % (Manual) Nucleated RBC % Seg Neutrophils # Man Lymphocytes # (Manual) PT INR APTT Fibrinogen D-Dimer Heparin Anti-Xa Level ABG pH POC ABG pCO2 ABG pO2 ABG HCO3 ABG O2 Saturation ABG Base Excess ABG Hemoglobin ABG Sodium ABG Chloride ABG Glucose Oxyhemoglobin Sodium Potassium Chloride Carbon Dioxide BUN Glucose POC Glucose 188 H Lactic Acid Calcium Phosphorus Magnesium Iron TIBC Ferritin Direct Bilirubin ALT Lactate Dehydrogenase Troponin T C-Reactive Protein NT-Pro-B Natriuret Pep Total Protein Albumin LDL Cholesterol Direct HDL Cholesterol Arterial Blood Glucose Salicylates Acetaminophen Cardiolipid IgM Ab 32.0 H Coronavirus (PCR) Crossmatch 10/21/21 10/21/21 10/21/21 04:53 05:19 08:35 WBC RBC Hgb Hct MCV MCH RDW Plt Count Seg Neuts % (Manual) Lymphocytes % (Manual) Nucleated RBC % Seg Neutrophils # Man Lymphocytes # (Manual) PT INR APTT Fibrinogen D-Dimer Heparin Anti-Xa Level ABG pH POC ABG pCO2 ABG pO2 ABG HCO3 ABG O2 Saturation ABG Base Excess ABG Hemoglobin ABG Sodium ABG Chloride ABG Glucose Oxyhemoglobin Sodium 146 H Potassium Chloride 113.0 H Carbon Dioxide BUN 42 H Glucose 165 H POC Glucose 160 H Lactic Acid Calcium Phosphorus Magnesium Iron TIBC Ferritin Direct Bilirubin ALT Lactate Dehydrogenase Troponin T C-Reactive Protein NT-Pro-B Natriuret Pep Total Protein Albumin LDL Cholesterol Direct HDL Cholesterol Arterial Blood Glucose Salicylates Acetaminophen Cardiolipid IgM Ab Coronavirus (PCR) Crossmatch See Detail 10/21/21 10/21/21 10/21/21 11:43 17:33 18:45 WBC RBC Hgb Hct MCV MCH RDW Plt Count Seg Neuts % (Manual) Lymphocytes % (Manual) Nucleated RBC % Seg Neutrophils # Man Lymphocytes # (Manual) PT INR APTT Fibrinogen D-Dimer Heparin Anti-Xa Level ABG pH 7.336 L POC ABG pCO2 ABG pO2 ABG HCO3 ABG O2 Saturation ABG Base Excess ABG Hemoglobin 7.6 L ABG Sodium ABG Chloride ABG Glucose Oxyhemoglobin 94.6 L Sodium Potassium Chloride Carbon Dioxide BUN Glucose POC Glucose 126 H 163 H Lactic Acid Calcium Phosphorus Magnesium Iron TIBC Ferritin Direct Bilirubin ALT Lactate Dehydrogenase Troponin T C-Reactive Protein NT-Pro-B Natriuret Pep Total Protein Albumin LDL Cholesterol Direct HDL Cholesterol Arterial Blood Glucose Salicylates Acetaminophen Cardiolipid IgM Ab Coronavirus (PCR) Crossmatch 10/21/21 10/22/21 10/22/21 23:50 04:30 04:30 WBC 21.5 H RBC 3.01 L Hgb 7.3 L Hct 23.9 L MCV MCH 24 L RDW 18.7 H Plt Count 454 H Seg Neuts % (Manual) 85.0 H Lymphocytes % (Manual) 3.0 L Nucleated RBC % Seg Neutrophils # Man 18.3 H Lymphocytes # (Manual) 0.6 L PT INR APTT Fibrinogen D-Dimer Heparin Anti-Xa Level 0.75 H ABG pH POC ABG pCO2 ABG pO2 ABG HCO3 ABG O2 Saturation ABG Base Excess ABG Hemoglobin ABG Sodium ABG Chloride ABG Glucose Oxyhemoglobin Sodium Potassium Chloride Carbon Dioxide BUN Glucose POC Glucose 198 H Lactic Acid Calcium Phosphorus Magnesium Iron TIBC Ferritin Direct Bilirubin ALT Lactate Dehydrogenase Troponin T C-Reactive Protein NT-Pro-B Natriuret Pep Total Protein Albumin LDL Cholesterol Direct HDL Cholesterol Arterial Blood Glucose Salicylates Acetaminophen Cardiolipid IgM Ab Coronavirus (PCR) Crossmatch 10/22/21 10/22/21 10/22/21 04:30 05:12 11:41 WBC RBC Hgb Hct MCV MCH RDW Plt Count Seg Neuts % (Manual) Lymphocytes % (Manual) Nucleated RBC % Seg Neutrophils # Man Lymphocytes # (Manual) PT INR APTT Fibrinogen D-Dimer Heparin Anti-Xa Level ABG pH POC ABG pCO2 ABG pO2 ABG HCO3 ABG O2 Saturation ABG Base Excess ABG Hemoglobin ABG Sodium ABG Chloride ABG Glucose Oxyhemoglobin Sodium Potassium 5.1 H Chloride 111.7 H Carbon Dioxide BUN 41 H Glucose 203 H POC Glucose 189 H 139 H Lactic Acid Calcium Phosphorus Magnesium Iron TIBC Ferritin Direct Bilirubin ALT 5 L Lactate Dehydrogenase Troponin T C-Reactive Protein NT-Pro-B Natriuret Pep Total Protein 6.2 L Albumin 2.5 L LDL Cholesterol Direct HDL Cholesterol Arterial Blood Glucose Salicylates Acetaminophen Cardiolipid IgM Ab Coronavirus (PCR) Crossmatch 10/22/21 10/22/21 10/23/21 17:01 23:51 05:15 WBC 19.0 H RBC 3.18 L Hgb 7.6 L Hct 24.7 L MCV 78 L MCH 24 L RDW 18.5 H Plt Count 533 H Seg Neuts % (Manual) Lymphocytes % (Manual) Nucleated RBC % Seg Neutrophils # Man Lymphocytes # (Manual) PT INR APTT Fibrinogen D-Dimer Heparin Anti-Xa Level ABG pH POC ABG pCO2 ABG pO2 ABG HCO3 ABG O2 Saturation ABG Base Excess ABG Hemoglobin ABG Sodium ABG Chloride ABG Glucose Oxyhemoglobin Sodium Potassium Chloride Carbon Dioxide BUN Glucose POC Glucose 192 H 196 H Lactic Acid Calcium Phosphorus Magnesium Iron TIBC Ferritin Direct Bilirubin ALT Lactate Dehydrogenase Troponin T C-Reactive Protein NT-Pro-B Natriuret Pep Total Protein Albumin LDL Cholesterol Direct HDL Cholesterol Arterial Blood Glucose Salicylates Acetaminophen Cardiolipid IgM Ab Coronavirus (PCR) Crossmatch 10/23/21 10/23/21 10/23/21 05:15 05:15 05:15 WBC RBC Hgb Hct MCV MCH RDW Plt Count Seg Neuts % (Manual) Lymphocytes % (Manual) Nucleated RBC % Seg Neutrophils # Man Lymphocytes # (Manual) PT INR APTT Fibrinogen D-Dimer 1890.39 H Heparin Anti-Xa Level ABG pH POC ABG pCO2 ABG pO2 ABG HCO3 ABG O2 Saturation ABG Base Excess ABG Hemoglobin ABG Sodium ABG Chloride ABG Glucose Oxyhemoglobin Sodium 148 H Potassium 5.1 H Chloride 112.8 H Carbon Dioxide BUN 38 H Glucose 158 H POC Glucose Lactic Acid Calcium Phosphorus 2.40 L Magnesium Iron TIBC Ferritin 624.0 H Direct Bilirubin ALT Lactate Dehydrogenase 329 H Troponin T C-Reactive Protein 5.00 H NT-Pro-B Natriuret Pep Total Protein Albumin LDL Cholesterol Direct HDL Cholesterol Arterial Blood Glucose Salicylates Acetaminophen Cardiolipid IgM Ab Coronavirus (PCR) Crossmatch 10/23/21 10/23/21 10/23/21 05:38 11:26 15:54 WBC RBC Hgb Hct MCV MCH RDW Plt Count Seg Neuts % (Manual) Lymphocytes % (Manual) Nucleated RBC % Seg Neutrophils # Man Lymphocytes # (Manual) PT INR APTT Fibrinogen D-Dimer Heparin Anti-Xa Level ABG pH POC ABG pCO2 ABG pO2 ABG HCO3 ABG O2 Saturation ABG Base Excess ABG Hemoglobin ABG Sodium ABG Chloride ABG Glucose Oxyhemoglobin Sodium Potassium Chloride Carbon Dioxide BUN Glucose POC Glucose 149 H 235 H 222 H Lactic Acid Calcium Phosphorus Magnesium Iron TIBC Ferritin Direct Bilirubin ALT Lactate Dehydrogenase Troponin T C-Reactive Protein NT-Pro-B Natriuret Pep Total Protein Albumin LDL Cholesterol Direct HDL Cholesterol Arterial Blood Glucose Salicylates Acetaminophen Cardiolipid IgM Ab Coronavirus (PCR) Crossmatch 10/23/21 10/24/21 10/24/21 23:35 05:23 06:05 WBC 17.0 H RBC 2.67 L Hgb 6.4 L Hct 21.1 L MCV MCH 24 L RDW 18.1 H Plt Count Seg Neuts % (Manual) Lymphocytes % (Manual) Nucleated RBC % Seg Neutrophils # Man Lymphocytes # (Manual) PT INR APTT Fibrinogen D-Dimer Heparin Anti-Xa Level ABG pH POC ABG pCO2 ABG pO2 ABG HCO3 ABG O2 Saturation ABG Base Excess ABG Hemoglobin ABG Sodium ABG Chloride ABG Glucose Oxyhemoglobin Sodium Potassium Chloride Carbon Dioxide BUN Glucose POC Glucose 176 H 202 H Lactic Acid Calcium Phosphorus Magnesium Iron TIBC Ferritin Direct Bilirubin ALT Lactate Dehydrogenase Troponin T C-Reactive Protein NT-Pro-B Natriuret Pep Total Protein Albumin LDL Cholesterol Direct HDL Cholesterol Arterial Blood Glucose Salicylates Acetaminophen Cardiolipid IgM Ab Coronavirus (PCR) Crossmatch 10/24/21 10/24/21 10/24/21 06:05 12:01 12:30 WBC RBC Hgb Hct MCV MCH RDW Plt Count Seg Neuts % (Manual) Lymphocytes % (Manual) Nucleated RBC % Seg Neutrophils # Man Lymphocytes # (Manual) PT INR APTT Fibrinogen D-Dimer Heparin Anti-Xa Level ABG pH POC ABG pCO2 ABG pO2 111.3 H ABG HCO3 30.6 H ABG O2 Saturation ABG Base Excess 4.9 H ABG Hemoglobin 9.0 L ABG Sodium ABG Chloride ABG Glucose Oxyhemoglobin Sodium 147 H Potassium Chloride 109.7 H Carbon Dioxide BUN 36 H Glucose 209 H POC Glucose 154 H Lactic Acid Calcium Phosphorus Magnesium Iron TIBC Ferritin Direct Bilirubin ALT Lactate Dehydrogenase Troponin T C-Reactive Protein NT-Pro-B Natriuret Pep Total Protein Albumin LDL Cholesterol Direct HDL Cholesterol Arterial Blood Glucose Salicylates Acetaminophen Cardiolipid IgM Ab Coronavirus (PCR) Crossmatch 10/24/21 10/24/21 16:50 23:29 WBC RBC Hgb Hct MCV MCH RDW Plt Count Seg Neuts % (Manual) Lymphocytes % (Manual) Nucleated RBC % Seg Neutrophils # Man Lymphocytes # (Manual) PT INR APTT Fibrinogen D-Dimer Heparin Anti-Xa Level ABG pH POC ABG pCO2 ABG pO2 ABG HCO3 ABG O2 Saturation ABG Base Excess ABG Hemoglobin ABG Sodium ABG Chloride ABG Glucose Oxyhemoglobin Sodium Potassium Chloride Carbon Dioxide BUN Glucose POC Glucose 189 H 130 H Lactic Acid Calcium Phosphorus Magnesium Iron TIBC Ferritin Direct Bilirubin ALT Lactate Dehydrogenase Troponin T C-Reactive Protein NT-Pro-B Natriuret Pep Total Protein Albumin LDL Cholesterol Direct HDL Cholesterol Arterial Blood Glucose Salicylates Acetaminophen Cardiolipid IgM Ab Coronavirus (PCR) Crossmatch Allied health notes reviewed: RT
[2021-10-25] MEDS ORDERED: FUROSEMIDE 20 MG/2 ML INJ IV SCH (09:00)
[2021-10-25] MEDS: FAMOTIDINE 20 MG TAB FEEDTUBE SCH (09:07)
[2021-10-25] MEDS: levETIRAcetam 500 MG/5 ML ORAL LIQD PO SCH (09:07)
[2021-10-25] MEDS: CHOLECALCIFEROL (VIT D3) 5,000 UNIT TAB PO SCH (09:07)
[2021-10-25] MEDS: DEXAMETHASONE 4 MG TAB FEEDTUBE SCH (09:08)
[2021-10-25] MEDS: ASCORBIC ACID 500 MG TAB PO SCH (09:08)
[2021-10-25] MEDS: ZINC SULFATE 220 MG CAP PO SCH (09:08)
[2021-10-25] MEDS: ARFORMOTEROL 15 MCG/2 ML NEBU IH SCH (09:26)
[2021-10-25] MEDS: BUDESONIDE 0.5 MG/2 ML NEBU IH SCH (09:27)
--- NOTE | 2021-10-25 10:15 | Progress Note ---
Assessment and Plan - Patient Problems (1) Respiratory failure Current Visit: Yes Status: Acute Plan to address problem: Patient presented with respiratory failure, currently extubated off the ventilator. The patient's chest x-ray showed a consolidation in the left lower lobe, consistent with acute pneumonia. COVID-19 test was positive. (2) Cardiac pacemaker Current Visit: Yes Status: Acute Plan to address problem: Patient has a dual-chamber pacemaker in situ, we will request old records including outpatient records to obtain details of her pacemaker and other previous cardiac work-up and interventions. Subjective Date of service: 10/25/21 Principal diagnosis: AHRF; Pneumonia; Septic shock; COVID-19 infection; CHF; DVT; NSTEMI Interval history: Patient was extubated yesterday, currently breathing comfortably on facemask oxygen. On wildlife and game protector, there is a ventricular paced rhythm, unchanged at 79. Objective Vital Signs Temp Pulse Pulse Pulse Resp Resp BP 10/25/21 09:30 80 27 H 136/68 10/25/21 09:27 95 H 16 10/25/21 09:16 10/25/21 09:00 79 26 H 137/70 10/25/21 08:30 79 26 H 137/72 10/25/21 08:00 97.6 F 80 22 105/55 10/25/21 07:30 80 21 105/53 10/25/21 07:00 80 24 117/58 10/25/21 06:30 80 25 H 125/68 10/25/21 06:09 10/25/21 06:00 80 25 H 125/69 10/25/21 05:30 80 27 H 131/66 10/25/21 05:00 80 28 H 141/69 10/25/21 04:30 80 28 H 133/67 10/25/21 04:00 98.8 F 80 80 28 H 131/63 10/25/21 03:30 80 31 H 150/70 10/25/21 03:00 80 26 H 180/81 10/25/21 02:30 80 26 H 134/68 10/25/21 02:00 80 24 102/52 10/25/21 01:30 80 25 H 117/59 10/25/21 01:00 80 27 H 123/64 10/25/21 00:30 80 29 H 148/73 10/25/21 00:00 97.8 F 79 80 27 H 127/66 10/24/21 23:30 80 29 H 150/75 10/24/21 23:02 80 29 H 154/79 10/24/21 23:00 80 35 H 142/71 10/24/21 22:30 80 27 H 142/71 10/24/21 22:00 80 26 H 129/64 10/24/21 21:30 80 27 H 123/65 10/24/21 21:08 80 10/24/21 21:00 80 25 H 123/65 10/24/21 20:52 10/24/21 20:51 91 H 22 10/24/21 20:30 80 26 H 134/67 10/24/21 20:00 97.6 F 80 80 19 139/74 10/24/21 19:30 80 22 111/59 10/24/21 19:00 80 24 135/71 10/24/21 18:00 80 25 H 141/73 10/24/21 17:30 80 26 H 145/72 10/24/21 17:00 80 27 H 141/76 10/24/21 16:30 80 29 H 141/76 10/24/21 16:26 10/24/21 16:00 97.3 F L 80 80 24 112/54 10/24/21 15:30 80 28 H 122/63 10/24/21 15:01 10/24/21 15:00 80 29 H 141/69 10/24/21 14:30 80 25 H 130/66 10/24/21 14:00 80 25 H 135/74 10/24/21 13:30 80 26 H 143/77 10/24/21 13:00 80 27 H 141/77 10/24/21 12:30 80 25 H 133/73 10/24/21 12:00 80 80 26 H 139/74 10/24/21 11:30 80 27 H 135/71 10/24/21 11:03 80 132/71 10/24/21 11:00 80 27 H 132/71 10/24/21 10:30 79 26 H 131/73 Pulse Ox 10/25/21 09:30 95 10/25/21 09:27 10/25/21 09:16 98 10/25/21 09:00 97 10/25/21 08:30 96 10/25/21 08:00 99 10/25/21 07:30 98 10/25/21 07:00 98 10/25/21 06:30 99 10/25/21 06:09 96 10/25/21 06:00 97 10/25/21 05:30 98 10/25/21 05:00 95 10/25/21 04:30 96 10/25/21 04:00 94 10/25/21 03:30 88 10/25/21 03:00 99 10/25/21 02:30 100 10/25/21 02:00 100 10/25/21 01:30 100 10/25/21 01:00 100 10/25/21 00:30 100 10/25/21 00:00 100 10/24/21 23:30 99 10/24/21 23:02 100 10/24/21 23:00 99 10/24/21 22:30 100 10/24/21 22:00 96 10/24/21 21:30 100 10/24/21 21:08 10/24/21 21:00 97 10/24/21 20:52 96 10/24/21 20:51 10/24/21 20:30 98 10/24/21 20:00 100 10/24/21 19:30 100 10/24/21 19:00 100 10/24/21 18:00 99 10/24/21 17:30 96 10/24/21 17:00 95 10/24/21 16:30 99 10/24/21 16:26 100 10/24/21 16:00 97 10/24/21 15:30 92 10/24/21 15:01 100 10/24/21 15:00 96 10/24/21 14:30 100 10/24/21 14:00 98 10/24/21 13:30 99 10/24/21 13:00 98 10/24/21 12:30 97 10/24/21 12:00 100 10/24/21 11:30 99 10/24/21 11:03 99 10/24/21 11:00 99 10/24/21 10:30 100 - Physical Examination Narrative exam: Full physical exam is deferred due to the patient's acute COVID infection. General: Other (Comfortably no acute distress, extubated off the ventilator) HEENT: Positive: Other (Pupils fixed) Neuro: Positive: Other (Unresponsive, on the ventilator) Abdomen: Positive: Soft Skin: Positive: Clear Extremities: Absent: edema Pacemaker: ventricular pacing w/capt - Allied health notes Allied health notes reviewed: RT
--- NOTE | 2021-10-25 12:49 | Progress Note ---
Assessment and Plan Cultures: 10/15/2021 blood culture: no growth COVID-19 PCR: Positive 10/15/2021 sputum culture: MSSA 10/18/2021 MRSA nasal PCR: Negative A/P: 86-year-old female with hypertension, prior CVA, diabetes, CHF, indwelling cardiac device admitted with resp distress: #Severe sepsis with septic shock, likely secondary to bilateral pneumonia with possible aspiration pneumonia. Initial labs showed leukocytosis with WBC 17.2, D-dimer 7433, lactate of 5.6, proBNP 6606, CRP 25.9, ferritin 418.8. UA with no pyuria. Procalcitonin 39.5. Not a candidate for Actemra due to very high white count and procalcitonin with concern for superadded bacterial infection. Sputum grew MSSA, treated with Ancef. #COVID-19 pneumonia: COVID PCR positive. #Acute hypoxic respiratory failure: was on the vent, extubated 10/25/2021. #CHF, indwelling cardiac device: BNP elevated. Cardiology on board. #Prior CVA Recs: -completed steroids, completed Remdesivir for COVID-19 -completed Ancef Yogi Maher MD, FACP, [facility] ([facility]) O: [phone] F: [phone] Subjective Date of service: 10/25/21 Principal diagnosis: AHRF; Pneumonia; Septic shock; COVID-19 infection; CHF; DVT ; NSTEMI Interval history: No fever. Extubated, now on Ventimask. Objective - Exam Narrative Exam: Physical Exam (reviewed in chart to minimize risk of transmission) Constitutional: deferred Head, Ears, Nose: deferred Eyes: deferred Neck: deferred Oral: deferred Cardiovascular: deferred Respiratory: deferred GI: deferred Musculoskeletal: deferred Skin: deferred Hem/Lymphatic: deferred Psych: deferred Neurological: deferred - Constitutional Vitals: Vital Signs Temp Pulse Resp BP Pulse Ox 97.8 F 80 27 H 136/68 95 10/25/21 12:00 10/25/21 09:30 10/25/21 09:30 10/25/21 09:30 10/25/21 09:30 Temperature -Last 24 Hours Temperature 97.8 F Temperature 97.6 F Temperature 98.8 F Temperature 97.8 F Temperature 97.6 F Temperature 97.3 F - Labs CBC & Chem 7: 10/24/21 06:05 10/24/21 06:05 Labs: Abnormal lab results 10/20/21 10/24/21 10/24/21 Range/Units Unknown 12:30 16:50 ABG pO2 111.3 H (80.0-90.0) mm Hg ABG HCO3 30.6 H (20.0-26.0) mmol/L ABG Base Excess 4.9 H (-2.0-3.0) mmol/L ABG Hemoglobin 9.0 L (12.0-16.0) gm/dl POC Glucose 189 H (70-105) mg/dL Cardiolipid IgM Ab 32.0 H (<20.0) MPL-U/mL 10/24/21 10/25/21 Range/Units 23:29 11:28 ABG pO2 (80.0-90.0) mm Hg ABG HCO3 (20.0-26.0) mmol/L ABG Base Excess (-2.0-3.0) mmol/L ABG Hemoglobin (12.0-16.0) gm/dl POC Glucose 130 H 150 H (70-105) mg/dL Cardiolipid IgM Ab (<20.0) MPL-U/mL
--- NOTE | 2021-10-25 13:12 | Hem/Onc Progress Note ---
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 Daily Lovenox Transfuse 1 unit RBC whenever hct <23 Laboratory Last Values WBC 17.0 K/mm3 (4.5-11.0) H 10/24/21 06:05 RBC 2.67 M/mm3 (3.65-5.03) L 10/24/21 06:05 Hgb 6.4 gm/dl (10.1-14.3) L 10/24/21 06:05 Hct 21.1 % (30.3-42.9) L 10/24/21 06:05 MCV 79 fl (79-97) 10/24/21 06:05 MCH 24 pg (28-32) L 10/24/21 06:05 MCHC 31 % (30-34) 10/24/21 06:05 RDW 18.1 % (13.2-15.2) H 10/24/21 06:05 Plt Count 426 K/mm3 (140-440) 10/24/21 06:05 Add Manual Diff Complete 10/22/21 04:30 Total Counted 100 10/22/21 04:30 Seg Neutrophils % Mortgage Processing Clerk 10/17/21 06:02 Seg Neuts % (Manual) 85.0 % (40.0-70.0) H 10/22/21 04:30 Band Neutrophils % 3.0 % 10/22/21 04:30 Lymphocytes % (Manual) 3.0 % (13.4-35.0) L 10/22/21 04:30 Reactive Lymphs % (Man) 0 % 10/22/21 04:30 Monocytes % (Manual) 2.0 % (0.0-7.3) 10/22/21 04:30 Eosinophils % (Manual) 0 % (0.0-4.3) 10/22/21 04:30 Basophils % (Manual) 0 % (0.0-1.8) 10/22/21 04:30 Metamyelocytes % 1.0 % 10/22/21 04:30 Myelocytes % 6.0 % 10/22/21 04:30 Promyelocytes % 0 % 10/22/21 04:30 Blast Cells % 0 % 10/22/21 04:30 Nucleated RBC % Not Reportable 10/22/21 04:30 Seg Neutrophils # Man 18.3 K/mm3 (1.8-7.7) H 10/22/21 04:30 Band Neutrophils # 0.6 K/mm3 10/22/21 04:30 Lymphocytes # (Manual) 0.6 K/mm3 (1.2-5.4) L 10/22/21 04:30 Abs React Lymphs (Man) 0.0 K/mm3 10/22/21 04:30 Monocytes # (Manual) 0.4 K/mm3 (0.0-0.8) 10/22/21 04:30 Eosinophils # (Manual) 0.0 K/mm3 (0.0-0.4) 10/22/21 04:30 Basophils # (Manual) 0.0 K/mm3 (0.0-0.1) 10/22/21 04:30 Metamyelocytes # 0.2 K/mm3 10/22/21 04:30 Myelocytes # 1.3 K/mm3 10/22/21 04:30 Promyelocytes # 0.0 K/mm3 10/22/21 04:30 Blast Cells # 0.0 K/mm3 10/22/21 04:30 WBC Morphology Not Reportable 10/22/21 04:30 Hypersegmented Neuts Not Reportable 10/22/21 04:30 Hyposegmented Neuts Not Reportable 10/22/21 04:30 Hypogranular Neuts Not Reportable 10/22/21 04:30 Smudge Cells Not Reportable 10/22/21 04:30 Toxic Granulation Not Reportable 10/22/21 04:30 Toxic Vacuolation Not Reportable 10/22/21 04:30 Dohle Bodies Not Reportable 10/22/21 04:30 Pelger-Huet Anomaly Not Reportable 10/22/21 04:30 Igrma Rods Not Reportable 10/22/21 04:30 Platelet Estimate Consistent w auto 10/22/21 04:30 Clumped Platelets Not Reportable 10/22/21 04:30 Plt Clumps, EDTA Not Reportable 10/22/21 04:30 Large Platelets Not Reportable 10/22/21 04:30 Giant Platelets Not Reportable 10/22/21 04:30 Platelet Satelliting Not Reportable 10/22/21 04:30 Plt Morphology Comment Not Reportable 10/22/21 04:30 RBC Morphology Not Reportable 10/22/21 04:30 Dimorphic RBCs Not Reportable 10/22/21 04:30 Polychromasia Few 10/22/21 04:30 Hypochromasia 1+ 10/22/21 04:30 Poikilocytosis Not Reportable 10/22/21 04:30 Anisocytosis Not Reportable 10/22/21 04:30 Microcytosis Not Reportable 10/22/21 04:30 Macrocytosis Not Reportable 10/22/21 04:30 Spherocytes Not Reportable 10/22/21 04:30 Pappenheimer Bodies Not Reportable 10/22/21 04:30 Sickle Cells Not Reportable 10/22/21 04:30 Target Cells Rare 10/22/21 04:30 Tear Drop Cells Not Reportable 10/22/21 04:30 Ovalocytes Not Reportable 10/22/21 04:30 Helmet Cells Not Reportable 10/22/21 04:30 Vaz-[place] Bodies Not Reportable 10/22/21 04:30 Mauldin Rings Not Reportable 10/22/21 04:30 Lucius Cells Not Reportable 10/22/21 04:30 Bite Cells Not Reportable 10/22/21 04:30 Crenated Cell Not Reportable 10/22/21 04:30 Elliptocytes Not Reportable 10/22/21 04:30 Acanthocytes (Spur) Not Reportable 10/22/21 04:30 Rouleaux Not Reportable 10/22/21 04:30 Hemoglobin C Crystals Not Reportable 10/22/21 04:30 Schistocytes Not Reportable 10/22/21 04:30 Malaria parasites Not Reportable 10/22/21 04:30 Brodie Bodies Not Reportable 10/22/21 04:30 Hem Pathologist Commnt No 10/22/21 04:30 PT 16.3 Sec. (12.2-14.9) H 10/20/21 18:05 INR 1.18 (0.87-1.13) H 10/20/21 18:05 APTT 38.0 Sec. (24.2-36.6) H 10/15/21 16:15 Fibrinogen 803 mg/dl (211-480) H 10/20/21 04:25 D-Dimer 1890.39 ng/mlDDU (0-234) H 10/23/21 05:15 Heparin Anti-Xa Level 0.63 U.I./ml (0.3-0.7) 10/22/21 12:40 ABG pH 7.390 pH Units (7.350-7.450) 10/24/21 12:30 POC ABG pCO2 48.1 mmHg (32.0-48.0) H 10/18/21 09:00 ABG pCO2 51.7 mm Hg 10/24/21 12:30 POC ABG pO2 103.0 mmHg (83-108) 10/18/21 09:00 ABG pO2 111.3 mm Hg (80.0-90.0) H 10/24/21 12:30 POC ABG HCO3 22.2 10/18/21 09:00 ABG HCO3 30.6 mmol/L (20.0-26.0) H 10/24/21 12:30 ABG O2 Saturation 97.8 % (95.0-99.0) 10/24/21 12:30 ABG O2 Content 12.4 (0.0-44) 10/24/21 12:30 POC ABG Base Excess -4.3 10/18/21 09:00 ABG Base Excess 4.9 mmol/L (-2.0-3.0) H 10/24/21 12:30 ABG Hemoglobin 9.0 gm/dl (12.0-16.0) L 10/24/21 12:30 ABG Oxyhemoglobin 95.4 (94-98) 10/18/21 09:00 ABG Carboxyhemoglobin 0.9 % (0.0-5.0) 10/24/21 12:30 ABG Methemoglobin 0.5 % (0.0-1.5) 10/24/21 12:30 ABG Sodium 136.8 mmol/L (136.0-145.0) 10/18/21 09:00 ABG Potassium 4.0 mmol/L (3.40-4.50) 10/18/21 09:00 ABG Chloride 104.0 mmol/L (98-107) 10/18/21 09:00 ABG Glucose 252 mg/dL (65-95) H 10/18/21 09:00 Oxyhemoglobin 96.5 % (95.0-99.0) 10/24/21 12:30 Carboxyhemoglobin 1.3 (0.5-1.5) 10/18/21 09:00 FiO2 50 % 10/24/21 12:30 FiO2 % 50 10/18/21 09:00 Sodium 147 mmol/L (137-145) H 10/24/21 06:05 Potassium 4.2 mmol/L (3.6-5.0) 10/24/21 06:05 Chloride 109.7 mmol/L (98-107) H 10/24/21 06:05 Carbon Dioxide 28 mmol/L (22-30) 10/24/21 06:05 Anion Gap 14 mmol/L 10/24/21 06:05 BUN 36 mg/dL (7-17) H 10/24/21 06:05 Creatinine 0.7 mg/dL (0.6-1.2) 10/24/21 06:05 Estimated GFR > 60 ml/min 10/24/21 06:05 BUN/Creatinine Ratio 51 % 10/24/21 06:05 Glucose 209 mg/dL (65-100) H 10/24/21 06:05 POC Glucose 150 mg/dL (70-105) H 10/25/21 11:28 Lactic Acid 1.20 mmol/L (0.7-2.0) 10/17/21 06:02 Calcium 8.8 mg/dL (8.4-10.2) 10/24/21 06:05 Phosphorus 2.40 mg/dL (2.5-4.5) L 10/23/21 05:15 Magnesium 1.90 mg/dL (1.7-2.3) 10/23/21 05:15 Iron 14 ug/dL (37-170) L 10/20/21 05:00 TIBC 138 mcg/dL (250-450) L 10/20/21 05:00 Ferritin 624.0 ng/mL (10.0-200.0) H 10/23/21 05:15 Total Bilirubin 0.20 mg/dL (0.1-1.2) 10/22/21 04:30 Direct Bilirubin 0.3 mg/dL (0-0.2) H 10/17/21 06:02 Indirect Bilirubin 0.1 mg/dL 10/17/21 06:02 AST 18 units/L (5-40) 10/22/21 04:30 ALT 5 units/L (7-56) L 10/22/21 04:30 Alkaline Phosphatase 69 units/L (35-129) 10/22/21 04:30 Ammonia 38.0 umol/L (25-60) 10/15/21 16:15 Lactate Dehydrogenase 329 units/L (91-180) H 10/23/21 05:15 Troponin T 0.015 ng/mL (0.00-0.029) 10/18/21 11:30 C-Reactive Protein 5.00 mg/dL (0.00-1.30) H 10/23/21 05:15 NT-Pro-B Natriuret Pep 6606 pg/mL (0-900) H 10/15/21 16:15 Total Protein 6.2 g/dL (6.3-8.2) L 10/22/21 04:30 Albumin 2.5 g/dL (3.9-5) L 10/22/21 04:30 Albumin/Globulin Ratio 0.7 % 10/22/21 04:30 Triglycerides 82 mg/dL (2-149) 10/19/21 02:40 Cholesterol 99 mg/dL (50-199) 10/15/21 18:00 LDL Cholesterol Direct 46 mg/dL (50-130) L 10/15/21 18:00 HDL Cholesterol 25 mg/dL (40-59) L 10/15/21 18:00 Cholesterol/HDL Ratio 3.96 % 10/15/21 18:00 Lipase 19 units/L (13-60) 10/15/21 16:15 Procalcitonin 39.51 ng/mL (<0.15) 10/16/21 23:31 Arterial Blood Glucose 252 mg/dL (65-95) H 10/18/21 09:00 Arterial Blood Ionized Calcium 4.7 mg/dL (4.6-5.3) 10/18/21 09:00 Urine Color Yellow (Yellow) 10/15/21 Unknown Urine Turbidity Cloudy (Clear) 10/15/21 Unknown Urine pH 5.0 (5.0-7.0) 10/15/21 Unknown Ur Specific [place] 1.016 (1.003-1.030) 10/15/21 Unknown Urine Protein >500 mg/dL (Negative) 10/15/21 Unknown Urine Glucose (UA) 50 mg/dL (Negative) 10/15/21 Unknown Urine Ketones Neg mg/dL (Negative) 10/15/21 Unknown Urine Blood Neg (Negative) 10/15/21 Unknown Urine Nitrite Neg (Negative) 10/15/21 Unknown Urine Bilirubin Neg (Negative) 10/15/21 Unknown Urine Urobilinogen < 2.0 mg/dL (<2.0) 10/15/21 Unknown Ur Leukocyte Esterase Neg (Negative) 10/15/21 Unknown Urine WBC (Auto) 5.0 /HPF (0.0-6.0) 10/15/21 Unknown Urine RBC (Auto) 2.0 /HPF (0.0-6.0) 10/15/21 Unknown U Epithel Cells (Auto) 2.0 /HPF (0-13.0) 10/15/21 Unknown Urine Bacteria (Auto) 1+ /HPF (Negative) 10/15/21 Unknown Calcium Oxalate Crystal 1+ 10/15/21 Unknown Amorphous Crystals 3+ 10/15/21 Unknown Urine Mucus Few /HPF 10/15/21 Unknown Urine Yeast (Budding) 1+ /HPF 10/15/21 Unknown Nasal Screen MRSA (PCR) Negative (Negative) 10/18/21 13:25 Salicylates < 0.3 mg/dL (2.8-20.0) L 10/15/21 16:15 Urine Opiates Screen Negative 10/15/21 Unknown Urine Methadone Screen Negative 10/15/21 Unknown Acetaminophen 5.0 ug/mL (10.0-30.0) L 10/15/21 16:15 Ur Barbiturates Screen Negative 10/15/21 Unknown Ur Phencyclidine Scrn Negative 10/15/21 Unknown Ur Amphetamines Screen Negative 10/15/21 Unknown U Benzodiazepines Scrn Negative 10/15/21 Unknown Urine Cocaine Screen Negative 10/15/21 Unknown U Marijuana (THC) Screen Negative 10/15/21 Unknown Drugs of Abuse Note Disclamer 10/15/21 Unknown Cardiolipid IgG Ab 5.4 GPL-U/mL (<20.0) 10/20/21 Unknown Cardiolipid IgA Ab 14.8 APL-U/mL (<20.0) 10/20/21 Unknown Cardiolipid IgM Ab 32.0 MPL-U/mL (<20.0) H 10/20/21 Unknown Coronavirus (PCR) Positive (Negative) A 10/16/21 09:36 Blood Type A POSITIVE 10/21/21 08:35 Antibody Screen Negative 10/21/21 08:35 Crossmatch See Detail 10/21/21 08:35 Objective - Constitutional Vitals: Last Vital Signs Temp 97.8 F 10/25/21 12:00 Pulse 80 10/25/21 09:30 Resp 27 H 10/25/21 09:30 BP 136/68 10/25/21 09:30 Pulse Ox 95 10/25/21 09:30 - Labs Lab Results: Laboratory Results - last 24 hr 10/20/21 10/24/21 10/24/21 Unknown 16:50 23:29 POC Glucose 189 H 130 H Cardiolipid IgG Ab 5.4 Cardiolipid IgA Ab 14.8 Cardiolipid IgM Ab 32.0 H 10/25/21 11:28 POC Glucose 150 H Cardiolipid IgG Ab Cardiolipid IgA Ab Cardiolipid IgM Ab Medications & Allergies - Medications Allergies/Adverse Reactions: Allergies lisinopril Allergy (Verified 10/16/21 12:24) Unknown Home Medications: Home Medications Medication Instructions Recorded Confirmed Last Taken Type Metformin HCl 1,000 mg PO BID 10/15/21 10/15/21 Unknown History Triamterene-Hctz 37.5-25 mg Cp 1 tab PO DAILY 10/15/21 10/15/21 Unknown History XARELTO (see DOAC order set to 2.5 mg PO BID 10/15/21 10/15/21 Unknown History order) levETIRAcetam [Keppra TAB] 1 tab PO BID 10/15/21 10/15/21 Unknown History Active Medications: Generic Name Dose Route Start Last Admin Trade Name Freq PRN Reason Stop Dose Admin Acetaminophen 650 mg 10/16/21 00:57 10/16/21 21:51 Acetaminophen 325 Mg Tab PO 650 mg Q4H PRN Administration Pain MILD(1-3)/Fever >100.5/KEYS Lipase/Protease/Amylase 1 each 10/16/21 01:07 Lipase 10,500/Protease 25,000/Amylase 43,750 (Units) Dr Schuler FEEDTWILI PRN PRN For Clogged Feeding Tube Arformoterol Tartrate 15 mcg 10/21/21 20:00 10/25/21 09:26 Arformoterol 15 Mcg/2 Ml Nebu IH 15 mcg Q12HRT MUNA Administration Ascorbic Acid 500 mg 10/17/21 10:00 10/25/21 09:08 Ascorbic Acid 500 Mg Tab PO 500 mg QDAY MUNA Administration Budesonide 0.5 mg 10/21/21 20:00 10/25/21 09:27 Budesonide 0.5 Mg/2 Ml Nebu IH 0.5 mg Q12HRT MUNA Administration Cholecalciferol 5,000 unit 10/17/21 10:00 10/25/21 09:07 Cholecalciferol (Vit D3) 5,000 Unit Tab PO 5,000 unit DAILY MUNA Administration Famotidine 20 mg 10/17/21 22:00 10/25/21 09:07 Famotidine 20 Mg Tab FEEDTUBE 20 mg BID MUNA Administration Sodium Chloride 500 mls @ 0 mls/hr 10/24/21 13:37 Nacl 0.9% 500 Ml IV 10/25/21 23:59 ONCE MUNA As Directed Ferric Sodium Gluconate 110 mls @ 100 mls/hr 10/24/21 17:00 10/24/21 17:34 Complex 125 mg/ Sodium IV 10/26/21 18:05 100 mls/hr Chloride Q24H MUNA Administration Insulin Glargine 20 units 10/24/21 22:00 10/24/21 22:41 Insulin Glargine 100 Units/Ml SUB-Q 20 units QHS MUNA Administration Insulin Human Lispro 0 unit 10/16/21 09:00 10/25/21 05:44 Insulin Lispro 100 Unit/Ml SUB-Q 3 unit Q6HR MUNA Administration Protocol Levetiracetam 500 mg 10/16/21 11:00 10/25/21 09:07 Levetiracetam 500 Mg/5 Ml Oral Liqd PO 500 mg BID MUNA Administration Metoclopramide HCl 10 mg 10/16/21 01:02 Metoclopramide 10 Mg/2 Ml Inj IV Q6H PRN Nausea And Vomiting Ondansetron HCl 4 mg 10/16/21 00:57 Ondansetron 4 Mg/2 Ml Inj IV Q3H PRN Nausea And Vomiting Senna/Docusate Sodium 1 tab 10/16/21 22:00 10/24/21 22:41 Sennosides/Docusate Sodium 8.6/50 Mg Tab FEEDTUBE 1 tab QHS MUNA Administration Simple Syrup 15 ml 10/16/21 01:07 Simple Syrup 15 Ml FEEDTUBE PRN PRN Hypoglycemia Simple Syrup 30 ml 10/16/21 01:07 Simple Syrup 15 Ml FEEDTUBE PRN PRN Hypoglycemia Sodium Bicarbonate 325 mg 10/16/21 01:07 Sodium Bicarbonate 325 Mg Tab FEEDTUBE PRN PRN For Clogged Feeding Tube Sodium Chloride 10 ml 10/16/21 01:00 10/25/21 09:08 Sodium Chloride 0.9% 10 Ml Flush Syringe IV 10 ml BID MUNA Administration Sodium Chloride 10 ml 10/16/21 00:57 Sodium Chloride 0.9% 10 Ml Flush Syringe IV PRN PRN LINE FLUSH Sodium Chloride 5 ml 10/16/21 13:57 Sodium Chloride 0.9% 1000 Ml Iv Soln IV PRN PRN CVP Zinc Sulfate 220 mg 10/16/21 22:00 10/25/21 09:08 Zinc Sulfate 220 Mg Cap PO 220 mg BID MUNA Administration
--- NOTE | 2021-10-25 14:09 | XRay Report ---
CHEST 1 VIEW INDICATION: SOB. COMPARISON: 10/23/2021 FINDINGS: Support devices: Stable positioning of the pacemaker device. Right jugular venous catheter has been r emoved. Heart: Grossly normal Lungs/Pleura: Complete opacification of the left lung has developed previous exam. This may represent large areas of atelectasis in the left lung. There are mild congestive changes in the right lung and small right pleural effusion. No pneumothorax. Additional findings: None. IMPRESSION: Complete opacification of the left lung has developed most consistent with left lung atelectasis. Small right pleural effusion. Signer Name: Eulalio Callahan Jr, MD Signed: 10/25/2021 2:04 PM Workstation Name: [id number]
--- NOTE | 2021-10-25 14:16 | Progress Note ---
<LASHONDA MALDONADO - Last Filed: 10/25/21 16:07> Assessment and Plan Assessment and plan: This is a 86-year-old female with past medical history of HTN, CVA (2020), Alzheimer, DM, seizure disorder, right lower leg DVT (was on Xarelto), and CHF with pacemaker admitted for sepsis and acute hypoxic respiratory failure 2/2 COVID pneumonia requiring ventilatory support. Hospital Course to Date: 10/16: Patient COVID-19 PCR positive, given IVF, CVP measuring initiated, weaning levophed as tolerated. Started on remdesivir/vit c/vit d/ zinc. 10/17: Acute DVT noted in bilateral common femoral vein patient started on heparin drip, magnesium and potassium repleted, vent changes per [facility]. Started remdesivir yesterday. 10/18: Remains off Levophed, given 500 mL bolus of normal saline. Increase Lantus. Permissive hypercapnia per [facility]. 10/19: Hematology/oncology consulted due to acute on chronic DVT, remains on remdesivir/steroids/vancomycin and cefepime. Tracheal aspirate grew Staph aureus. Levophed remains off. BP and UOP improved after NS bolus yesterday 10/20: MRSA PCR negative, vancomycin discontinued and started on Ancef. heme/onc plans to discontinue heparin gtt and initiation of Lovenox. 10/21: Patient had desaturation x3 even after lavage with RT. Stat CXR ordered. Patient is anemic today and 1 unit of PRBC was ordered. However consent for blood transfusion was declined by son. Risk and benefits explained by RN and EMISSION TECHNICIAN for greater than 45 minutes total. 10/22: minimal vent setting, PSV today. given Kayexalate. Called Fan to give him an update but call sent to [employer], voice message left requesting a call back to hospitalist office at [phone] 10/23: ISHMAEL overnight. Plan for SBT/CPAP trial this am. Mild hyperkalemia this am, X1 dose pf Kayaxalate, FWF added for hypernatremia. 10/24: PST this am, ABG after 2hours. If ABG stable possible extubation today. [facility] had a thorough discussion with patient's son this am in regard to patient's POC. Low hbg this am, patient's son again declined blood transfusion for today. IV Iron [id number]. Continue FWF for hypernatremia. Basal insulin adjusted for hyperglycemia 10/25: Patient was extubated yesterday, now on 35% Venti mask SPO2 above 95%. Patient is awake but not following commands, per son patient is back to her baseline. Today CXR noted, complete whiteout of the left c/f possible mucus plug. D/w CCM orders Placed for mucomyst and bronchodilator Q8hr, agressive chest PT on the left side, and will also switch patient to HHFL 40% & 40L. Repeat CXR in the am. Assessement and Plan #Neuro:Alzheimer's Disease #Seizure Disorder #H/o CVA - Patient is nonverbal at baseline - open eyes spontaneously but does not follow commands - PRN analgesic for now for CPOT greater than 3 - Continue home Keppra - Avoid benzodiazepine to reduce the possibility of delirium - PRN analgesia for CPOT greater than 3 - Maintenance of sleep-wake cycle #Hypertension #Hypotension-resolved #CHF with PPM #H/o Hypertension - Vpacing on the monitor at 80 - Patient with marginal BP this am, off pressors this am - Levophed gtt is on standby - Hold home antihypertensive regimen at this time - Cardiology consulted, appreciate recommendations - 10/16 Echo with a EF 45 to 50%, RVSP 45-50 mmHg, moderate left ventricular hypertrophy, trace to small anterior pericardial effusion no tamponade - Elevated proBNP 6606 on admit, s/p IV Lasix - Strick I&Os - Daily weight - Continue Blood pressure monitoring per protocol - Maintain MAP above 65 #Acute Hypoxic Respiratory Failure #Bilateral Pneumonia #COVID Pneumonia - COVID Swab positive - Intubated in the ED on 10/15 - 10/24 s/p extubation - On 35% venti mask this am - Today CXR with complete whiteout of left side - CCM consulted, appreciate recommendations - Mucomyst and brochodilator TID - Switch patient to HHFL at 40% and 40L - Continue IV Steroids - Repeat CXR in the am - Aspiration precaution HOB above 30 - Continue SPO2 monitoring for SPO2 goal above 92% #GI:TF - Continue Enteral nutrition - Nutrition on consult - Continue PPI and BR #Hyperkalemia-improved #Hypernatremia - Elevated K and Na this am - X1 dose of kayaxalate - FWF - Strict intake and output - Avoid nephrotoxic medications; Renally dose medications - Monitor and replace electrolytes as needed - Trend BMP #Heme:Acute on Chronic DVT #Iron deficiency anemia #Thrombocytosis - Patient with a history of DVT was on Xarelto at home - Bilateral lower extremities doppler with acute bilateral common femoral DVT - CTA chest without PE - Hematology onsulted, appreciate recommendations - Continue AC- Lovenox - Low H&H, CCM had thorough discussion with patient's still declining blood transfusion at this time - Today lab is pending - IV iron addedX3 days - NO BLOOD TRANSFUSION per patient's son - Continue to trend CBC #ID: Severe Sepsis with Shock #Bilateral Pneumonia #COVID Penumonia #Leukocytosis #Lactic Acidosis- resolved - Presented with low BP, elevated lactic, with leukocytosis - CXR showed B PNA - CT chest showed B consolidation (left greater than right) - Procalcitonin 39.5, CRP 26.9 - Sputum cult with + Staph Areurs - Infectious disease consulted, appreciate recommendations - s/p X5days Remdesevir - Continue IV Antibiotics per ID - Patient remains afebrile, leukocytosis downtrending - Continue to F/U on B.cult - Daily CBC monitor #Endo: Type 2 DM - Continue SSI Q6hrs - Basal insulin increased - Avoid Hypoglycemia The high probability of a clinically significant, sudden or life threatening deterioration of the [multi] system(s) required my full and direct attention, intervention and personal management. The aggregate critical care time was [60] minutes. This time is in addition to time spent performing reported procedures but includes the following: [x] Data Review and interpretation [x] Patient assessment and monitoring of vital signs [x] Documentation [x] Medication orders and management Disposition Plan: ICU Total Time Spent with Patient (Minutes): 60 History Interval history: Patient seen and examined at the bedside. S/p extubation, now on 65%ventimask. Mentation is back to baseline per son. ISHMAEL overnight Hospitalist Physical - Constitutional Vitals: Temp Pulse Resp BP Pulse Ox 97.8 F 80 27 H 136/68 95 10/25/21 12:00 10/25/21 09:30 10/25/21 09:30 10/25/21 09:30 10/25/21 09:30 General appearance: Present: mild distress, other (On the vent) - EENT Eyes: Present: PERRL - Respiratory Respiratory effort: normal Respiratory: bilateral: rhonchi - Cardiovascular Rhythm: regular Heart Sounds: Present: S1 & S2 - Extremities Extremities: no ischemia, pulses intact, pulses symmetrical Extremity abnormal: edema - Peripheral Assessment Generalized Edema Type: Non-pitting Edema Degree: 1+ Capillary Refill: < 3 seconds Skin Temperature: Warm Peripheral Pulses: within normal limits - Abdominal General gastrointestinal: soft, non-distended, normal bowel sounds - Integumentary Integumentary: Present: warm, dry - Psychiatric Psychiatric: other (Awake, not following commands) - Neurologic Neurologic: other (Awake, not following commands) - Allied Health Allied health notes reviewed: nursing HEART Score - HEART Score Age: > 65 Risk factors: 1-2 risk factors Troponin: Troponin T 0.015 ng/mL (0.00-0.029) 10/18/21 11:30 Troponin: 1-3x normal limit - Critical Actions Critical Actions: 4-6 pts:12-16.6% risk of adverse cardiac event. Should be admitted Results - Labs CBC & Chem 7: 10/24/21 06:05 10/24/21 06:05 Labs: Laboratory Last Values WBC 17.0 K/mm3 (4.5-11.0) H 10/24/21 06:05 RBC 2.67 M/mm3 (3.65-5.03) L 10/24/21 06:05 Hgb 6.4 gm/dl (10.1-14.3) L 10/24/21 06:05 Hct 21.1 % (30.3-42.9) L 10/24/21 06:05 MCV 79 fl (79-97) 10/24/21 06:05 MCH 24 pg (28-32) L 10/24/21 06:05 MCHC 31 % (30-34) 10/24/21 06:05 RDW 18.1 % (13.2-15.2) H 10/24/21 06:05 Plt Count 426 K/mm3 (140-440) 10/24/21 06:05 Add Manual Diff Complete 10/22/21 04:30 Total Counted 100 10/22/21 04:30 Seg Neutrophils % Bakery Clerk 10/17/21 06:02 Seg Neuts % (Manual) 85.0 % (40.0-70.0) H 10/22/21 04:30 Band Neutrophils % 3.0 % 10/22/21 04:30 Lymphocytes % (Manual) 3.0 % (13.4-35.0) L 10/22/21 04:30 Reactive Lymphs % (Man) 0 % 10/22/21 04:30 Monocytes % (Manual) 2.0 % (0.0-7.3) 10/22/21 04:30 Eosinophils % (Manual) 0 % (0.0-4.3) 10/22/21 04:30 Basophils % (Manual) 0 % (0.0-1.8) 10/22/21 04:30 Metamyelocytes % 1.0 % 10/22/21 04:30 Myelocytes % 6.0 % 10/22/21 04:30 Promyelocytes % 0 % 10/22/21 04:30 Blast Cells % 0 % 10/22/21 04:30 Nucleated RBC % Not Reportable 10/22/21 04:30 Seg Neutrophils # Man 18.3 K/mm3 (1.8-7.7) H 10/22/21 04:30 Band Neutrophils # 0.6 K/mm3 10/22/21 04:30 Lymphocytes # (Manual) 0.6 K/mm3 (1.2-5.4) L 10/22/21 04:30 Abs React Lymphs (Man) 0.0 K/mm3 10/22/21 04:30 Monocytes # (Manual) 0.4 K/mm3 (0.0-0.8) 10/22/21 04:30 Eosinophils # (Manual) 0.0 K/mm3 (0.0-0.4) 10/22/21 04:30 Basophils # (Manual) 0.0 K/mm3 (0.0-0.1) 10/22/21 04:30 Metamyelocytes # 0.2 K/mm3 10/22/21 04:30 Myelocytes # 1.3 K/mm3 10/22/21 04:30 Promyelocytes # 0.0 K/mm3 10/22/21 04:30 Blast Cells # 0.0 K/mm3 10/22/21 04:30 WBC Morphology Not Reportable 10/22/21 04:30 Hypersegmented Neuts Not Reportable 10/22/21 04:30 Hyposegmented Neuts Not Reportable 10/22/21 04:30 Hypogranular Neuts Not Reportable 10/22/21 04:30 Smudge Cells Not Reportable 10/22/21 04:30 Toxic Granulation Not Reportable 10/22/21 04:30 Toxic Vacuolation Not Reportable 10/22/21 04:30 Dohle Bodies Not Reportable 10/22/21 04:30 Pelger-Huet Anomaly Not Reportable 10/22/21 04:30 Girma Rods Not Reportable 10/22/21 04:30 Platelet Estimate Consistent w auto 10/22/21 04:30 Clumped Platelets Not Reportable 10/22/21 04:30 Plt Clumps, EDTA Not Reportable 10/22/21 04:30 Large Platelets Not Reportable 10/22/21 04:30 Giant Platelets Not Reportable 10/22/21 04:30 Platelet Satelliting Not Reportable 10/22/21 04:30 Plt Morphology Comment Not Reportable 10/22/21 04:30 RBC Morphology Not Reportable 10/22/21 04:30 Dimorphic RBCs Not Reportable 10/22/21 04:30 Polychromasia Few 10/22/21 04:30 Hypochromasia 1+ 10/22/21 04:30 Poikilocytosis Not Reportable 10/22/21 04:30 Anisocytosis Not Reportable 10/22/21 04:30 Microcytosis Not Reportable 10/22/21 04:30 Macrocytosis Not Reportable 10/22/21 04:30 Spherocytes Not Reportable 10/22/21 04:30 Pappenheimer Bodies Not Reportable 10/22/21 04:30 Sickle Cells Not Reportable 10/22/21 04:30 Target Cells Rare 10/22/21 04:30 Tear Drop Cells Not Reportable 10/22/21 04:30 Ovalocytes Not Reportable 10/22/21 04:30 Helmet Cells Not Reportable 10/22/21 04:30 Vaz-[place] Bodies Not Reportable 10/22/21 04:30 [place] Rings Not Reportable 10/22/21 04:30 [place] Cells Not Reportable 10/22/21 04:30 Bite Cells Not Reportable 10/22/21 04:30 Crenated Cell Not Reportable 10/22/21 04:30 Elliptocytes Not Reportable 10/22/21 04:30 Acanthocytes (Spur) Not Reportable 10/22/21 04:30 Rouleaux Not Reportable 10/22/21 04:30 Hemoglobin C Crystals Not Reportable 10/22/21 04:30 Schistocytes Not Reportable 10/22/21 04:30 Malaria parasites Not Reportable 10/22/21 04:30 Brodie Bodies Not Reportable 10/22/21 04:30 Hem Pathologist Commnt No 10/22/21 04:30 PT 16.3 Sec. (12.2-14.9) H 10/20/21 18:05 INR 1.18 (0.87-1.13) H 10/20/21 18:05 APTT 38.0 Sec. (24.2-36.6) H 10/15/21 16:15 Fibrinogen 803 mg/dl (211-480) H 10/20/21 04:25 D-Dimer 1890.39 ng/mlDDU (0-234) H 10/23/21 05:15 Heparin Anti-Xa Level 0.63 U.I./ml (0.3-0.7) 10/22/21 12:40 ABG pH 7.390 pH Units (7.350-7.450) 10/24/21 12:30 POC ABG pCO2 48.1 mmHg (32.0-48.0) H 10/18/21 09:00 ABG pCO2 51.7 mm Hg 10/24/21 12:30 POC ABG pO2 103.0 mmHg (83-108) 10/18/21 09:00 ABG pO2 111.3 mm Hg (80.0-90.0) H 10/24/21 12:30 POC ABG HCO3 22.2 10/18/21 09:00 ABG HCO3 30.6 mmol/L (20.0-26.0) H 10/24/21 12:30 ABG O2 Saturation 97.8 % (95.0-99.0) 10/24/21 12:30 ABG O2 Content 12.4 (0.0-44) 10/24/21 12:30 POC ABG Base Excess -4.3 10/18/21 09:00 ABG Base Excess 4.9 mmol/L (-2.0-3.0) H 10/24/21 12:30 ABG Hemoglobin 9.0 gm/dl (12.0-16.0) L 10/24/21 12:30 ABG Oxyhemoglobin 95.4 (94-98) 10/18/21 09:00 ABG Carboxyhemoglobin 0.9 % (0.0-5.0) 10/24/21 12:30 ABG Methemoglobin 0.5 % (0.0-1.5) 10/24/21 12:30 ABG Sodium 136.8 mmol/L (136.0-145.0) 10/18/21 09:00 ABG Potassium 4.0 mmol/L (3.40-4.50) 10/18/21 09:00 ABG Chloride 104.0 mmol/L (98-107) 10/18/21 09:00 ABG Glucose 252 mg/dL (65-95) H 10/18/21 09:00 Oxyhemoglobin 96.5 % (95.0-99.0) 10/24/21 12:30 Carboxyhemoglobin 1.3 (0.5-1.5) 10/18/21 09:00 FiO2 50 % 10/24/21 12:30 FiO2 % 50 10/18/21 09:00 Sodium 147 mmol/L (137-145) H 10/24/21 06:05 Potassium 4.2 mmol/L (3.6-5.0) 10/24/21 06:05 Chloride 109.7 mmol/L (98-107) H 10/24/21 06:05 Carbon Dioxide 28 mmol/L (22-30) 10/24/21 06:05 Anion Gap 14 mmol/L 10/24/21 06:05 BUN 36 mg/dL (7-17) H 10/24/21 06:05 Creatinine 0.7 mg/dL (0.6-1.2) 10/24/21 06:05 Estimated GFR > 60 ml/min 10/24/21 06:05 BUN/Creatinine Ratio 51 % 10/24/21 06:05 Glucose 209 mg/dL (65-100) H 10/24/21 06:05 POC Glucose 150 mg/dL (70-105) H 10/25/21 11:28 Lactic Acid 1.20 mmol/L (0.7-2.0) 10/17/21 06:02 Calcium 8.8 mg/dL (8.4-10.2) 10/24/21 06:05 Phosphorus 2.40 mg/dL (2.5-4.5) L 10/23/21 05:15 Magnesium 1.90 mg/dL (1.7-2.3) 10/23/21 05:15 Iron 14 ug/dL (37-170) L 10/20/21 05:00 TIBC 138 mcg/dL (250-450) L 10/20/21 05:00 Ferritin 624.0 ng/mL (10.0-200.0) H 10/23/21 05:15 Total Bilirubin 0.20 mg/dL (0.1-1.2) 10/22/21 04:30 Direct Bilirubin 0.3 mg/dL (0-0.2) H 10/17/21 06:02 Indirect Bilirubin 0.1 mg/dL 10/17/21 06:02 AST 18 units/L (5-40) 10/22/21 04:30 ALT 5 units/L (7-56) L 10/22/21 04:30 Alkaline Phosphatase 69 units/L (35-129) 10/22/21 04:30 Ammonia 38.0 umol/L (25-60) 10/15/21 16:15 Lactate Dehydrogenase 329 units/L (91-180) H 10/23/21 05:15 Troponin T 0.015 ng/mL (0.00-0.029) 10/18/21 11:30 C-Reactive Protein 5.00 mg/dL (0.00-1.30) H 10/23/21 05:15 NT-Pro-B Natriuret Pep 6606 pg/mL (0-900) H 10/15/21 16:15 Total Protein 6.2 g/dL (6.3-8.2) L 10/22/21 04:30 Albumin 2.5 g/dL (3.9-5) L 10/22/21 04:30 Albumin/Globulin Ratio 0.7 % 10/22/21 04:30 Triglycerides 82 mg/dL (2-149) 10/19/21 02:40 Cholesterol 99 mg/dL (50-199) 10/15/21 18:00 LDL Cholesterol Direct 46 mg/dL (50-130) L 10/15/21 18:00 HDL Cholesterol 25 mg/dL (40-59) L 10/15/21 18:00 Cholesterol/HDL Ratio 3.96 % 10/15/21 18:00 Lipase 19 units/L (13-60) 10/15/21 16:15 Procalcitonin 39.51 ng/mL (<0.15) 10/16/21 23:31 Arterial Blood Glucose 252 mg/dL (65-95) H 10/18/21 09:00 Arterial Blood Ionized Calcium 4.7 mg/dL (4.6-5.3) 10/18/21 09:00 Urine Color Yellow (Yellow) 10/15/21 Unknown Urine Turbidity Cloudy (Clear) 10/15/21 Unknown Urine pH 5.0 (5.0-7.0) 10/15/21 Unknown Ur Specific [place] 1.016 (1.003-1.030) 10/15/21 Unknown Urine Protein >500 mg/dL (Negative) 10/15/21 Unknown Urine Glucose (UA) 50 mg/dL (Negative) 10/15/21 Unknown Urine Ketones Neg mg/dL (Negative) 10/15/21 Unknown Urine Blood Neg (Negative) 10/15/21 Unknown Urine Nitrite Neg (Negative) 10/15/21 Unknown Urine Bilirubin Neg (Negative) 10/15/21 Unknown Urine Urobilinogen < 2.0 mg/dL (<2.0) 10/15/21 Unknown Ur Leukocyte Esterase Neg (Negative) 10/15/21 Unknown Urine WBC (Auto) 5.0 /HPF (0.0-6.0) 10/15/21 Unknown Urine RBC (Auto) 2.0 /HPF (0.0-6.0) 10/15/21 Unknown U Epithel Cells (Auto) 2.0 /HPF (0-13.0) 10/15/21 Unknown Urine Bacteria (Auto) 1+ /HPF (Negative) 10/15/21 Unknown Calcium Oxalate Crystal 1+ 10/15/21 Unknown Amorphous Crystals 3+ 10/15/21 Unknown Urine Mucus Few /HPF 10/15/21 Unknown Urine Yeast (Budding) 1+ /HPF 10/15/21 Unknown Nasal Screen MRSA (PCR) Negative (Negative) 10/18/21 13:25 Salicylates < 0.3 mg/dL (2.8-20.0) L 10/15/21 16:15 Urine Opiates Screen Negative 10/15/21 Unknown Urine Methadone Screen Negative 10/15/21 Unknown Acetaminophen 5.0 ug/mL (10.0-30.0) L 10/15/21 16:15 Ur Barbiturates Screen Negative 10/15/21 Unknown Ur Phencyclidine Scrn Negative 10/15/21 Unknown Ur Amphetamines Screen Negative 10/15/21 Unknown U Benzodiazepines Scrn Negative 10/15/21 Unknown Urine Cocaine Screen Negative 10/15/21 Unknown U Marijuana (THC) Screen Negative 10/15/21 Unknown Drugs of Abuse Note Disclamer 10/15/21 Unknown Cardiolipid IgG Ab 5.4 GPL-U/mL (<20.0) 10/20/21 Unknown Cardiolipid IgA Ab 14.8 APL-U/mL (<20.0) 10/20/21 Unknown Cardiolipid IgM Ab 32.0 MPL-U/mL (<20.0) H 10/20/21 Unknown Coronavirus (PCR) Positive (Negative) A 10/16/21 09:36 Blood Type A POSITIVE 10/21/21 08:35 Antibody Screen Negative 10/21/21 08:35 Crossmatch See Detail 10/21/21 08:35 Magallanes/IV: Voiding Method External Female Catheter Active Medications - Current Medications Current Medications: Generic Name Dose Route Start Last Admin Trade Name Freq PRN Reason Stop Dose Admin Acetaminophen 650 mg 10/16/21 00:57 10/16/21 21:51 Acetaminophen 325 Mg Tab PO 650 mg Q4H PRN Administration Pain MILD(1-3)/Fever >100.5/KEYS Lipase/Protease/Amylase 1 each 10/16/21 01:07 Lipase 10,500/Protease 25,000/Amylase 43,750 (Units) Dr Schuler FEEDTUBE PRN PRN For Clogged Feeding Tube Arformoterol Tartrate 15 mcg 10/21/21 20:00 10/25/21 09:26 Arformoterol 15 Mcg/2 Ml Nebu IH 15 mcg Q12HRT MUNA Administration Ascorbic Acid 500 mg 10/17/21 10:00 10/25/21 09:08 Ascorbic Acid 500 Mg Tab PO 500 mg QDAY MUNA Administration Budesonide 0.5 mg 10/21/21 20:00 10/25/21 09:27 Budesonide 0.5 Mg/2 Ml Nebu IH 0.5 mg Q12HRT MUNA Administration Cholecalciferol 5,000 unit 10/17/21 10:00 10/25/21 09:07 Cholecalciferol (Vit D3) 5,000 Unit Tab PO 5,000 unit DAILY MUNA Administration Famotidine 20 mg 10/17/21 22:00 10/25/21 09:07 Famotidine 20 Mg Tab FEEDTUBE 20 mg BID MUNA Administration Sodium Chloride 500 mls @ 0 mls/hr 10/24/21 13:37 Nacl 0.9% 500 Ml IV 10/25/21 23:59 ONCE MUNA As Directed Ferric Sodium Gluconate 110 mls @ 100 mls/hr 10/24/21 17:00 10/24/21 17:34 Complex 125 mg/ Sodium IV 10/26/21 18:05 100 mls/hr Chloride Q24H MUNA Administration Insulin Glargine 20 units 10/24/21 22:00 10/24/21 22:41 Insulin Glargine 100 Units/Ml SUB-Q 20 units QHS MUNA Administration Insulin Human Lispro 0 unit 10/16/21 09:00 10/25/21 05:44 Insulin Lispro 100 Unit/Ml SUB-Q 3 unit Q6HR MUNA Administration Protocol Levetiracetam 500 mg 10/16/21 11:00 10/25/21 09:07 Levetiracetam 500 Mg/5 Ml Oral Liqd PO 500 mg BID MUNA Administration Metoclopramide HCl 10 mg 10/16/21 01:02 Metoclopramide 10 Mg/2 Ml Inj IV Q6H PRN Nausea And Vomiting Ondansetron HCl 4 mg 10/16/21 00:57 Ondansetron 4 Mg/2 Ml Inj IV Q3H PRN Nausea And Vomiting Senna/Docusate Sodium 1 tab 10/16/21 22:00 10/24/21 22:41 Sennosides/Docusate Sodium 8.6/50 Mg Tab FEEDTUBE 1 tab QHS MUNA Administration Simple Syrup 15 ml 10/16/21 01:07 Simple Syrup 15 Ml FEEDTUBE PRN PRN Hypoglycemia Simple Syrup 30 ml 10/16/21 01:07 Simple Syrup 15 Ml FEEDTUBE PRN PRN Hypoglycemia Sodium Bicarbonate 325 mg 10/16/21 01:07 Sodium Bicarbonate 325 Mg Tab FEEDTUBE PRN PRN For Clogged Feeding Tube Sodium Chloride 10 ml 10/16/21 01:00 10/25/21 09:08 Sodium Chloride 0.9% 10 Ml Flush Syringe IV 10 ml BID MUNA Administration Sodium Chloride 10 ml 10/16/21 00:57 Sodium Chloride 0.9% 10 Ml Flush Syringe IV PRN PRN LINE FLUSH Sodium Chloride 5 ml 10/16/21 13:57 Sodium Chloride 0.9% 1000 Ml Iv Soln IV PRN PRN CVP Zinc Sulfate 220 mg 10/16/21 22:00 10/25/21 09:08 Zinc Sulfate 220 Mg Cap PO 220 mg BID MUNA Administration Nutrition/Malnutrition Assess - Dietary Evaluation Nutrition/Malnutrition Findings: Nutrition Notes Start: 10/16/21 10:33 Freq: Status: Active Protocol: Document 10/18/21 16:08 ANTIONE (Rec: 10/18/21 16:15 ANTIONE [id number]) Nutrition Notes Initial or Follow up Brief Note Current Diet TF-Promote @ 41 ml/hr (from L 10/16). Height 5 ft 5 in Weight 55 kg [place] Body Weight (kg) 56.81 BMI 20.1 Weight change and time frame No body weight change reported . Weight Status Appropriate Subjective/Other Information RD consult for routine F/U on TF tolerance. TF continues as prescribed, therefore, well tolerated. Percent of energy/protein needs met: Prescribed Promote @ 41 ml/hr provides for energy/protein needs (985 Kcal/62 g) during LOS, plus 43 Kcal from propofol. 100% Kcal; 93% AA. Current % PO Other Minimum of two criteria No #1 Nutrition Diagnosis Inadequate oral intake Diagnosis Progress(for reassessment Continues documentation) Nutrition Intervention Nutrition Support: Continue Promote @ 41 ml/hr. Flush: 30 ml water Q 4 hr, or as per MD. % RDI: 100% Kcal; 93% AA. Goal #1 Provide at least 75% of energy /protein needs through Enteral Feeding during LOS. Follow-Up By: 10/25/21 Additional Comments Continue monitoring TF tolerance and BM. <FARZANEH MARES - Last Filed: 10/25/21 21:01> Assessment and Plan Assessment and plan: The high probability of a clinically significant, sudden or life threatening det erioration of the [multi] system(s) required my full and direct attention, intervention and personal management. The aggregate critical care time was [60] minutes. This time is in addition to time spent performing reported procedures but includes the following: [x] Data Review and interpretation [x] Patient assessment and monitoring of vital signs [x] Documentation [x] Medication orders and management Hospitalist Physical - Constitutional Vitals: Temp Pulse Resp BP Pulse Ox 98 F 147 H 18 254/202 68 L 10/25/21 16:00 10/25/21 17:31 10/25/21 17:31 10/25/21 17:31 10/25/21 17:31 HEART Score - HEART Score Troponin: Troponin T 0.015 ng/mL (0.00-0.029) 10/18/21 11:30 Results - Labs CBC & Chem 7: 10/25/21 17:09 10/25/21 17:09 Labs: Laboratory Last Values WBC 12.9 K/mm3 (4.5-11.0) H 10/25/21 17:09 RBC 3.51 M/mm3 (3.65-5.03) L 10/25/21 17:09 Hgb 8.5 gm/dl (10.1-14.3) L 10/25/21 17:09 Hct 28.1 % (30.3-42.9) L D 10/25/21 17:09 MCV 80 fl (79-97) 10/25/21 17:09 MCH 24 pg (28-32) L 10/25/21 17:09 MCHC 30 % (30-34) 10/25/21 17:09 RDW 18.5 % (13.2-15.2) H 10/25/21 17:09 Plt Count 513 K/mm3 (140-440) H 10/25/21 17:09 Add Manual Diff Complete 10/22/21 04:30 Total Counted 100 10/22/21 04:30 Seg Neutrophils % Bakery Clerk 10/17/21 06:02 Seg Neuts % (Manual) 85.0 % (40.0-70.0) H 10/22/21 04:30 Band Neutrophils % 3.0 % 10/22/21 04:30 Lymphocytes % (Manual) 3.0 % (13.4-35.0) L 10/22/21 04:30 Reactive Lymphs % (Man) 0 % 10/22/21 04:30 Monocytes % (Manual) 2.0 % (0.0-7.3) 10/22/21 04:30 Eosinophils % (Manual) 0 % (0.0-4.3) 10/22/21 04:30 Basophils % (Manual) 0 % (0.0-1.8) 10/22/21 04:30 Metamyelocytes % 1.0 % 10/22/21 04:30 Myelocytes % 6.0 % 10/22/21 04:30 Promyelocytes % 0 % 10/22/21 04:30 Blast Cells % 0 % 10/22/21 04:30 Nucleated RBC % Not Reportable 10/22/21 04:30 Seg Neutrophils # Man 18.3 K/mm3 (1.8-7.7) H 10/22/21 04:30 Band Neutrophils # 0.6 K/mm3 10/22/21 04:30 Lymphocytes # (Manual) 0.6 K/mm3 (1.2-5.4) L 10/22/21 04:30 Abs React Lymphs (Man) 0.0 K/mm3 10/22/21 04:30 Monocytes # (Manual) 0.4 K/mm3 (0.0-0.8) 10/22/21 04:30 Eosinophils # (Manual) 0.0 K/mm3 (0.0-0.4) 10/22/21 04:30 Basophils # (Manual) 0.0 K/mm3 (0.0-0.1) 10/22/21 04:30 Metamyelocytes # 0.2 K/mm3 10/22/21 04:30 Myelocytes # 1.3 K/mm3 10/22/21 04:30 Promyelocytes # 0.0 K/mm3 10/22/21 04:30 Blast Cells # 0.0 K/mm3 10/22/21 04:30 WBC Morphology Not Reportable 10/22/21 04:30 Hypersegmented Neuts Not Reportable 10/22/21 04:30 Hyposegmented Neuts Not Reportable 10/22/21 04:30 Hypogranular Neuts Not Reportable 10/22/21 04:30 Smudge Cells Not Reportable 10/22/21 04:30 Toxic Granulation Not Reportable 10/22/21 04:30 Toxic Vacuolation Not Reportable 10/22/21 04:30 Dohle Bodies Not Reportable 10/22/21 04:30 Pelger-Huet Anomaly Not Reportable 10/22/21 04:30 Girma Rods Not Reportable 10/22/21 04:30 Platelet Estimate Consistent w auto 10/22/21 04:30 Clumped Platelets Not Reportable 10/22/21 04:30 Plt Clumps, EDTA Not Reportable 10/22/21 04:30 Large Platelets Not Reportable 10/22/21 04:30 Giant Platelets Not Reportable 10/22/21 04:30 Platelet Satelliting Not Reportable 10/22/21 04:30 Plt Morphology Comment Not Reportable 10/22/21 04:30 RBC Morphology Not Reportable 10/22/21 04:30 Dimorphic RBCs Not Reportable 10/22/21 04:30 Polychromasia Few 10/22/21 04:30 Hypochromasia 1+ 10/22/21 04:30 Poikilocytosis Not Reportable 10/22/21 04:30 Anisocytosis Not Reportable 10/22/21 04:30 Microcytosis Not Reportable 10/22/21 04:30 Macrocytosis Not Reportable 10/22/21 04:30 Spherocytes Not Reportable 10/22/21 04:30 Pappenheimer Bodies Not Reportable 10/22/21 04:30 Sickle Cells Not Reportable 10/22/21 04:30 Target Cells Rare 10/22/21 04:30 Tear Drop Cells Not Reportable 10/22/21 04:30 Ovalocytes Not Reportable 10/22/21 04:30 Helmet Cells Not Reportable 10/22/21 04:30 Vaz-[place] Bodies Not Reportable 10/22/21 04:30 [place] Rings Not Reportable 10/22/21 04:30 [place] Cells Not Reportable 10/22/21 04:30 Bite Cells Not Reportable 10/22/21 04:30 Crenated Cell Not Reportable 10/22/21 04:30 Elliptocytes Not Reportable 10/22/21 04:30 Acanthocytes (Spur) Not Reportable 10/22/21 04:30 Rouleaux Not Reportable 10/22/21 04:30 Hemoglobin C Crystals Not Reportable 10/22/21 04:30 Schistocytes Not Reportable 10/22/21 04:30 Malaria parasites Not Reportable 10/22/21 04:30 Brodie Bodies Not Reportable 10/22/21 04:30 Hem Pathologist Commnt No 10/22/21 04:30 PT 16.3 Sec. (12.2-14.9) H 10/20/21 18:05 INR 1.18 (0.87-1.13) H 10/20/21 18:05 APTT 38.0 Sec. (24.2-36.6) H 10/15/21 16:15 Fibrinogen 803 mg/dl (211-480) H 10/20/21 04:25 D-Dimer 1395.05 ng/mlDDU (0-234) H 10/25/21 17:09 Heparin Anti-Xa Level 0.63 U.I./ml (0.3-0.7) 10/22/21 12:40 ABG pH 7.390 pH Units (7.350-7.450) 10/24/21 12:30 POC ABG pCO2 48.1 mmHg (32.0-48.0) H 10/18/21 09:00 ABG pCO2 51.7 mm Hg 10/24/21 12:30 POC ABG pO2 103.0 mmHg (83-108) 10/18/21 09:00 ABG pO2 111.3 mm Hg (80.0-90.0) H 10/24/21 12:30 POC ABG HCO3 22.2 10/18/21 09:00 ABG HCO3 30.6 mmol/L (20.0-26.0) H 10/24/21 12:30 ABG O2 Saturation 97.8 % (95.0-99.0) 10/24/21 12:30 ABG O2 Content 12.4 (0.0-44) 10/24/21 12:30 POC ABG Base Excess -4.3 10/18/21 09:00 ABG Base Excess 4.9 mmol/L (-2.0-3.0) H 10/24/21 12:30 ABG Hemoglobin 9.0 gm/dl (12.0-16.0) L 10/24/21 12:30 ABG Oxyhemoglobin 95.4 (94-98) 10/18/21 09:00 ABG Carboxyhemoglobin 0.9 % (0.0-5.0) 10/24/21 12:30 ABG Methemoglobin 0.5 % (0.0-1.5) 10/24/21 12:30 ABG Sodium 136.8 mmol/L (136.0-145.0) 10/18/21 09:00 ABG Potassium 4.0 mmol/L (3.40-4.50) 10/18/21 09:00 ABG Chloride 104.0 mmol/L (98-107) 10/18/21 09:00 ABG Glucose 252 mg/dL (65-95) H 10/18/21 09:00 Oxyhemoglobin 96.5 % (95.0-99.0) 10/24/21 12:30 Carboxyhemoglobin 1.3 (0.5-1.5) 10/18/21 09:00 FiO2 50 % 10/24/21 12:30 FiO2 % 50 10/18/21 09:00 Sodium 147 mmol/L (137-145) H 10/25/21 17:09 Potassium 4.5 mmol/L (3.6-5.0) 10/25/21 17:09 Chloride 106.0 mmol/L (98-107) 10/25/21 17:09 Carbon Dioxide 31 mmol/L (22-30) H 10/25/21 17:09 Anion Gap 15 mmol/L 10/25/21 17:09 BUN 30 mg/dL (7-17) H 10/25/21 17:09 Creatinine 0.7 mg/dL (0.6-1.2) 10/25/21 17:09 Estimated GFR > 60 ml/min 10/25/21 17:09 BUN/Creatinine Ratio 43 % 10/25/21 17:09 Glucose 234 mg/dL (65-100) H 10/25/21 17:09 POC Glucose 193 mg/dL (70-105) H 10/25/21 17:04 Lactic Acid 1.20 mmol/L (0.7-2.0) 10/17/21 06:02 Calcium 9.7 mg/dL (8.4-10.2) 10/25/21 17:09 Phosphorus 3.30 mg/dL (2.5-4.5) 10/25/21 17:09 Magnesium 1.80 mg/dL (1.7-2.3) 10/25/21 17:09 Iron 14 ug/dL (37-170) L 10/20/21 05:00 TIBC 138 mcg/dL (250-450) L 10/20/21 05:00 Ferritin 605.8 ng/mL (10.0-200.0) H 10/25/21 17:09 Total Bilirubin 0.20 mg/dL (0.1-1.2) 10/22/21 04:30 Direct Bilirubin 0.3 mg/dL (0-0.2) H 10/17/21 06:02 Indirect Bilirubin 0.1 mg/dL 10/17/21 06:02 AST 18 units/L (5-40) 10/22/21 04:30 ALT 5 units/L (7-56) L 10/22/21 04:30 Alkaline Phosphatase 69 units/L (35-129) 10/22/21 04:30 Ammonia 38.0 umol/L (25-60) 10/15/21 16:15 Lactate Dehydrogenase 326 units/L (91-180) H 10/25/21 17:09 Troponin T 0.015 ng/mL (0.00-0.029) 10/18/21 11:30 C-Reactive Protein 1.10 mg/dL (0.00-1.30) 10/25/21 17:09 NT-Pro-B Natriuret Pep 6606 pg/mL (0-900) H 10/15/21 16:15 Total Protein 6.2 g/dL (6.3-8.2) L 10/22/21 04:30 Albumin 2.5 g/dL (3.9-5) L 10/22/21 04:30 Albumin/Globulin Ratio 0.7 % 10/22/21 04:30 Triglycerides 82 mg/dL (2-149) 10/19/21 02:40 Cholesterol 99 mg/dL (50-199) 10/15/21 18:00 LDL Cholesterol Direct 46 mg/dL (50-130) L 10/15/21 18:00 HDL Cholesterol 25 mg/dL (40-59) L 10/15/21 18:00 Cholesterol/HDL Ratio 3.96 % 10/15/21 18:00 Lipase 19 units/L (13-60) 10/15/21 16:15 Procalcitonin 39.51 ng/mL (<0.15) 10/16/21 23:31 Arterial Blood Glucose 252 mg/dL (65-95) H 10/18/21 09:00 Arterial Blood Ionized Calcium 4.7 mg/dL (4.6-5.3) 10/18/21 09:00 Urine Color Yellow (Yellow) 10/15/21 Unknown Urine Turbidity Cloudy (Clear) 10/15/21 Unknown Urine pH 5.0 (5.0-7.0) 10/15/21 Unknown Ur Specific [place] 1.016 (1.003-1.030) 10/15/21 Unknown Urine Protein >500 mg/dL (Negative) 10/15/21 Unknown Urine Glucose (UA) 50 mg/dL (Negative) 10/15/21 Unknown Urine Ketones Neg mg/dL (Negative) 10/15/21 Unknown Urine Blood Neg (Negative) 10/15/21 Unknown Urine Nitrite Neg (Negative) 10/15/21 Unknown Urine Bilirubin Neg (Negative) 10/15/21 Unknown Urine Urobilinogen < 2.0 mg/dL (<2.0) 10/15/21 Unknown Ur Leukocyte Esterase Neg (Negative) 10/15/21 Unknown Urine WBC (Auto) 5.0 /HPF (0.0-6.0) 10/15/21 Unknown Urine RBC (Auto) 2.0 /HPF (0.0-6.0) 10/15/21 Unknown U Epithel Cells (Auto) 2.0 /HPF (0-13.0) 10/15/21 Unknown Urine Bacteria (Auto) 1+ /HPF (Negative) 10/15/21 Unknown Calcium Oxalate Crystal 1+ 10/15/21 Unknown Amorphous Crystals 3+ 10/15/21 Unknown Urine Mucus Few /HPF 10/15/21 Unknown Urine Yeast (Budding) 1+ /HPF 10/15/21 Unknown Nasal Screen MRSA (PCR) Negative (Negative) 10/18/21 13:25 Salicylates < 0.3 mg/dL (2.8-20.0) L 10/15/21 16:15 Urine Opiates Screen Negative 10/15/21 Unknown Urine Methadone Screen Negative 10/15/21 Unknown Acetaminophen 5.0 ug/mL (10.0-30.0) L 10/15/21 16:15 Ur Barbiturates Screen Negative 10/15/21 Unknown Ur Phencyclidine Scrn Negative 10/15/21 Unknown Ur Amphetamines Screen Negative 10/15/21 Unknown U Benzodiazepines Scrn Negative 10/15/21 Unknown Urine Cocaine Screen Negative 10/15/21 Unknown U Marijuana (THC) Screen Negative 10/15/21 Unknown Drugs of Abuse Note Disclamer 10/15/21 Unknown Cardiolipid IgG Ab 5.4 GPL-U/mL (<20.0) 10/20/21 Unknown Cardiolipid IgA Ab 14.8 APL-U/mL (<20.0) 10/20/21 Unknown Cardiolipid IgM Ab 32.0 MPL-U/mL (<20.0) H 10/20/21 Unknown Coronavirus (PCR) Positive (Negative) A 10/16/21 09:36 Blood Type A POSITIVE 10/21/21 08:35 Antibody Screen Negative 10/21/21 08:35 Crossmatch See Detail 10/21/21 08:35 Magallanes/IV: Voiding Method External Female Catheter Nutrition/Malnutrition Assess - Dietary Evaluation Nutrition/Malnutrition Findings: Nutrition Notes Start: 10/16/21 10:33 Freq: Status: Discharge Protocol: Document 10/25/21 15:06 ANTIONE (Rec: 10/25/21 15:27 ANTIONE [id number]) Nutrition Notes Initial or Follow up Reassessment Current Diagnosis Diabetes,Sepsis,Hypertension, Heart Failure,Respiratory Failure,Stroke Other Pertinent Diagnosis COVID-19, Bilateral pneumonia, NSTEMI. Current Diet TF-Promote @ 41 ml/hr (from L 10/16). Labs/Tests 10/24: Na 147, Cl 109.7, BUN 36, Glu 209. Pertinent Medications 10/25: Vit C, Vit D3, Insulin, ZnSO4, others nutritionally unremarkable. Height 5 ft 5 in Weight 55 kg [place] Body Weight (kg) 56.81 BMI 20.1 Weight change and time frame No body weight change reported . Weight Status Appropriate Subjective/Other Information RD consult for routine F/U on TF tolerance. Pt extubated on 10/24, now on 3 L O2 NC. F/U for dietary advancement or TF continuation. Percent of energy/protein needs met: Prescribed Promote @ 41 ml/hr provides for energy/protein needs (985 Kcal/62 g) during LOS, 100% Kcal; 93% AA. Burn Absent Trauma Absent GI Symptoms None Food Allergy No Skin Integrity/Comment Clear, warm, dry. Current % PO Other Minimum of two criteria No #1 Nutrition Diagnosis Inadequate oral intake Diagnosis Progress(for reassessment Continues documentation) Is patient on ventilator? No Is Patient Ambulatory and/or Out of Bed No REE-([facility]-confined to bed) 1190.741 Calculation Used for Recommendations 70-80% of EEN Additional Notes 15-20 Kcal/Kg ABW. Protein: 1.2-2 g/Kg; 66-110 g/ day. Fluids: 1 ml/Kcal, or as per MD. Nutrition Intervention Nutrition Support: Continue Promote @ 41 ml/hr. Flush: 30 ml water Q 4 hr, or as per MD. Kcal 985 Protein (gm) 62 Carbohydrates (gm) 128 Fat (gm) 26 Fluid (mL) 826 Fiber (gm) 0 % RDI: 100% Kcal; 93% AA. Goal #1 Provide at least 75% of energy /protein needs through Enteral Feeding during LOS. Follow-Up By: 10/27/21 Additional Comments Continue monitoring TF tolerance and BM. Or dietary advancement.
[2021-10-25] MEDS ORDERED: ALBUTEROL 2.5 MG/3 ML NEBU IH SCH (17:15)
[2021-10-25 17:23] LABS: Hematocrit 28.1 % (30.3-42.9); Hemoglobin 8.5 gm/dl (10.1-14.3); Mean Corpuscular HGB Conc 30 % (30-34); Mean Corpuscular Volume 80 fl (79-97); Platelet Count 513 K/mm3 (140-440); Red Blood Count 3.51 M/mm3 (3.65-5.03); Red Cell Distribution Width 18.5 % (13.2-15.2)
[2021-10-25 17:42] VITALS: BP 254/202
[2021-10-25 17:46] LABS: Blood Urea Nitrogen 30 mg/dL (7-17); Calcium 9.7 mg/dL (8.4-10.2); Hemolysis Index 3
--- NOTE | 2021-10-25 17:46 | Death Note ---
Note Date of : 10/25/21 Time of : 17:40 Time Pronounced: 17:40 - Preliminary Cause of (problem) (1) COVID-19 Preliminary cause of (2) Acute respiratory failure with hypoxia Preliminary cause of (3) Bilateral pneumonia P
--- NOTE | 2021-10-25 17:48 | Event Note ---
Date: 10/25/21 A CODE BLUE was called. I presented to bedside and the patient was found to be in asystolic arrest. The patient was treated" with ACLS protocol without return of perfusing cardiac rhythm at any time during the CODE BLUE. On neurologic exam the patient was found to have absent brainstem reflexes. The patient pupils are fixed and dilated. On pulmonary exam the patient was found to have absent breath sounds. On cardiac exam the patient was found to have absent cardiac sounds. Asystole was evident on the monitoring coordinator. Patient pronounced at 1740 hrs. 60 minutes critical care time dedicated to patient care.
[2021-10-25 17:51] LABS: BUN/Creatinine Ratio 43
[2021-10-25] MEDS ORDERED: ACETYLCYSTEINE 20% 200 MG/1 ML *FOR INHALATION USE INHALATION SCH (18:00)
[2021-10-25] MEDS: SODIUM FERRIC GLUCON/SUCRO 125 MG in SODIUM CHLORIDE 0.9% 100 ML IV SCH (19:29)
--- NOTE | 2021-10-25 21:02 | Death Summary ---
Summary - Providers Consults: 10/15/21 20:14 Consult to Physician [CONS] Stat Comment: Consulting Provider: TOR LOZADA Physician Instructions: Reason For Exam: vent management 10/16/21 01:07 Consult to Dietitian/Nutrition [CONS] Routine Physician Instructions: Assess nutrtn needs, initiate, modify, manage TF Reason For Exam: Reason for Consult: Write/Manage Tube Feeding Reason for Consult: Write/Manage Tube Feeding 10/16/21 08:12 Consult to Physician [CONS] Routine Comment: Consulting Provider: CLAIRE HAWKINS Physician Instructions: Reason For Exam: CHF 10/16/21 08:13 Consult to Physician [CONS] Routine Comment: Consulting Provider: STEFANIA ZENG Physician Instructions: Reason For Exam: Sepsis, possible aspiration pneumonia 10/19/21 12:30 Consult to Physician [CONS] Routine Comment: left mess. /stacey Consulting Provider: WENDY JESUS Physician Instructions: Reason For Exam: Acute on Chronic DVT 10/25/21 07:15 Physical Therapy Evaluation and Treat [CONS] Routine Comment: Reason For Exam: debility Attending: FARZANEH MARES MD - summary Date of admission: 10/15/21 20:15 Date of : 10/25/21 - Final diagnosis (1) Cardiac arrest Note: Final diagnosis: This is a 86-year-old female with past medical history of HTN, CVA (2020), Alzheimer, DM, seizure disorder, right lower leg DVT (was on Xarelto), and CHF with pacemaker admitted for sepsis and acute hypoxic respiratory failure 2/2 COVID pneumonia requiring ventilatory support. Hospital Course to Date: 10/16: Patient COVID-19 PCR positive, given IVF, CVP measuring initiated, weaning levophed as tolerated. Started on remdesivir/vit c/vit d/ zinc. 10/17: Acute DVT noted in bilateral common femoral vein patient started on heparin drip, magnesium and potassium repleted, vent changes per CCM. Started remdesivir yesterday. 10/18: Remains off Levophed, given 500 mL bolus of normal saline. Increase Lant us. Permissive hypercapnia per CCM. 10/19: Hematology/oncology consulted due to acute on chronic DVT, remains on remdesivir/steroids/vancomycin and cefepime. Tracheal aspirate grew Staph aureus. Levophed remains off. BP and UOP improved after NS bolus yesterday 10/20: MRSA PCR negative, vancomycin discontinued and started on Ancef. heme/onc plans to discontinue heparin gtt and initiation of Lovenox. 10/21: Patient had desaturation x3 even after lavage with RT. Stat CXR ordered. Patient is anemic today and 1 unit of PRBC was ordered. However consent for blood transfusion was declined by son. Risk and benefits explained by RN and SPRING PRODUCTION SUPERVISOR for greater than 45 minutes total. 10/22: minimal vent setting, PSV today. given Kayexalate. Called Fan to give him an update but call sent to [employer], voice message left requesting a call back to hospitalist office at [phone] 10/23: ISHMAEL overnight. Plan for SBT/CPAP trial this am. Mild hyperkalemia this am, X1 dose pf Kayaxalate, FWF added for hypernatremia. 10/24: PST this am, ABG after 2hours. If ABG stable possible extubation today. CCM had a thorough discussion with patient's son this am in regard to patient's POC. Low hbg this am, patient's son again declined blood transfusion for today. IV Iron [id number]. Continue FWF for hypernatremia. Basal insulin adjusted for hyperglycemia 10/25: Patient was extubated yesterday, now on 35% Venti mask SPO2 above 95%. Patient is awake but not following commands, per son patient is back to her baseline. Today CXR noted, complete whiteout of the left c/f possible mucus plug. D/w CCM orders Placed for mucomyst and bronchodilator Q8hr, agressive chest PT on the left side, and will also switch patient to HHFL 40% & 40L. Repeat CXR in the am. A CODE BLUE was called on 10/25. student affairs vice president hospitalist presented to bedside and the patient was found to be in asystolic arrest. The patient was aggressively treated with ACLS protocol without return of perfusing cardiac rhythm at any time during the CODE BLUE. On neurologic exam the patient was found to have absent brainstem reflexes. The patient pupils are fixed and dilated. On pulmonary exam the patient was found to have absent breath sounds. On cardiac exam the patient was found to have absent cardiac sounds. Asystole was evident on the laboratory monitor. Despite heroic efforts by physician/ICU staff, Patient pronounced at 1740 hrs. (2) Acute respiratory failure with hypoxia Note: Final diagnosis: (3) COVID-19 Note: Final diagnosis: (4) Suspected COVID-19 virus infection Note: Final diagnosis: (5) Anemia Qualifiers: Anemia type: unspecified type Qualified Code(s): D64.9 - Anemia, unspecified Note: Final diagnosis: (6) CHF (congestive heart failure) Qualifiers: Heart failure type: combined systolic and diastolic Heart failure chronicity: chronic Qualified Code(s): I50.42 - Chronic combined systolic (congestive) and diastolic (congestive) heart failure Note: Final diagnosis:
[2021-10-26] MEDS ORDERED: ACETYLCYSTEINE 20% 200 MG/1 ML *FOR INHALATION USE INHALATION SCH (08:00)
[2021-10-26] MEDS ORDERED: ALBUTEROL 2.5 MG/3 ML NEBU IH SCH (08:00)
== END 2021-10-25 17:40 | DRG 870 ==
LOC: ED 17:24 → CC1 20:15
PROVIDERS: ADMIT Internal Medicine; ATTEND Internal Medicine
PROC: 02HV33Z Insertion of Infusion Device into Superior Vena Cava, Percutaneous Approach (ICD-10-PCS; 2021-10-15)
PROC: B548ZZA Ultrasonography of Superior Vena Cava, Guidance (ICD-10-PCS; 2021-10-15)
PROC: 4A033R1 Measurement of Arterial Saturation, Peripheral, Percutaneous Approach (ICD-10-PCS; 2021-10-17)
PROC: XW033E5 Introduction of Remdesivir Anti-infective into Peripheral Vein, Percutaneous Approach, New Technology Group 5 (ICD-10-PCS; 2021-10-17)
PROC: 5A1955Z Respiratory Ventilation, Greater than 96 Consecutive Hours (ICD-10-PCS; principal; 2021-10-24)
PROC: 0BH17EZ Insertion of Endotracheal Airway into Trachea, Via Natural or Artificial Opening (ICD-10-PCS; 2021-10-24)
DX: A41.9 Sepsis, unspecified organism (principal); J96.01 Acute respiratory failure with hypoxia; R65.21 Severe sepsis with septic shock; U07.1 COVID-19; J12.82 Pneumonia due to coronavirus disease 2019; D64.9 Anemia, unspecified; I11.0 Hypertensive heart disease with heart failure; I50.42 Chronic combined systolic (congestive) and diastolic (congestive) heart failure; E44.0 Moderate protein-calorie malnutrition; Z68.20 Body mass index [BMI] 20.0-20.9, adult; E87.1 Hypo-osmolality and hyponatremia; I82.413 Acute embolism and thrombosis of femoral vein, bilateral; E83.42 Hypomagnesemia; I21.4 Non-ST elevation (NSTEMI) myocardial infarction; J69.0 Pneumonitis due to inhalation of food and vomit; G30.9 Alzheimer's disease, unspecified; F02.80 Dementia in other diseases classified elsewhere, unspecified severity, without behavioral disturbance, psychotic disturbance, mood disturbance, and anxiety; R62.7 Adult failure to thrive; E87.6 Hypokalemia; G40.909 Epilepsy, unspecified, not intractable, without status epilepticus; E87.5 Hyperkalemia; D75.839 Thrombocytosis, unspecified; E11.9 Type 2 diabetes mellitus without complications; I46.9 Cardiac arrest, cause unspecified; E87.0 Hyperosmolality and hypernatremia; Z95.0 Presence of cardiac pacemaker; Z86.73 Personal history of transient ischemic attack (TIA), and cerebral infarction without residual deficits; Z88.8 Allergy status to other drugs, medicaments and biological substances; Z79.01 Long term (current) use of anticoagulants; Z82.49 Family history of ischemic heart disease and other diseases of the circulatory system
CPT/HCPCS: 36415; 36600; 71045; 71275; 74177; 80048; 80053; 80061; 80076; 80307; 80320; 81001; 82140; 82728; 82803; 82805; 82947; 82962; 83550; 83615; 83690; 83735; 83880; 84100; 84145; 84478; 84484; 85007; 85025; 85027; 85379; 85384; 85520; 85610; 85730; 86140; 86147; 86850; 86900; 86901; 86920; 87040; 87070; 87076; 87186; 87205; 87641; 93005; 93306; 93970; 94002; 94003; 94640; 94760; G0378; J2354; J3490; J7517; Q0162; Q9967; G0480; J0330; J0456; J0690; J0692; J1100; J1644; J1650; J1815; J1940; J2704; J2916; J3010; J3370; J3475; J7030; J7040; J7050; J8540; U0003